=== PATIENT | male | born 1955 | race Caucasian/White ===

== ENCOUNTER 2022-04-19 06:48 | Outpatient (CLI) | payer OTHER, SELFPAY | END 2022-04-19 06:49 | disposition home or self-care (01) | LOC: INJ CL 06:50 | PROVIDERS: PCP Physician Assistant; Visit Provider Family Medicine | DX: M54.16 Radiculopathy, lumbar region (principal); M51.36 Other intervertebral disc degeneration, lumbar region | CPT/HCPCS: 62323; 64483; J1100; Q9966 ==

== ENCOUNTER 2022-07-20 08:00 | Outpatient (RCR) | payer MEDICARE, OTHER, BC, SELFPAY | END 2022-08-24 13:27 | disposition home or self-care (01) | PROVIDERS: PCP Physician Assistant; Visit Provider Physician Assistant | DX: I89.0 Lymphedema, not elsewhere classified (principal); Z51.89 Encounter for other specified aftercare | CPT/HCPCS: 97140 ==

== ENCOUNTER 2022-09-20 08:57 | Outpatient (CLI) | payer MEDICARE, BC, SELFPAY | END 2022-09-20 08:58 | disposition home or self-care (01) | PROVIDERS: PCP Physician Assistant; Visit Provider Family Medicine | DX: M17.11 Unilateral primary osteoarthritis, right knee (principal); M25.561 Pain in right knee | CPT/HCPCS: 64454 ==

== ENCOUNTER 2022-09-27 13:15 | Outpatient (CLI) | payer MEDICARE, BC, SELFPAY | END 2022-09-27 13:16 | disposition home or self-care (01) | LOC: INJ CL 13:15 | PROVIDERS: PCP Physician Assistant; Visit Provider Family Medicine | DX: M17.11 Unilateral primary osteoarthritis, right knee (principal); M25.561 Pain in right knee; G89.29 Other chronic pain | CPT/HCPCS: 64624; J2250; J3010 ==

== ENCOUNTER 2022-11-01 12:24 | Outpatient (CLI) | payer MEDICARE, BC, SELFPAY | END 2022-11-01 12:25 | disposition home or self-care (01) | LOC: INJ CL 12:25 | PROVIDERS: PCP Physician Assistant; Visit Provider Family Medicine | DX: M54.16 Radiculopathy, lumbar region (principal); M51.36 Other intervertebral disc degeneration, lumbar region | CPT/HCPCS: 64483; J1100; Q9966 ==

== ENCOUNTER 2024-02-12 16:14 | Emergency (ER) | payer MEDICARE, BC, SELFPAY ==
[2024-02-12 16:18] VITALS: BP 115/59; PULSE 86; RESP 20; TEMP 36.7; O2SAT 100; BMI 40.7
--- NOTE | 2024-02-12 17:16 | ED.GENADULT ---
HPI - General Adult General Date Seen: 02/12/24 Chief complaint: Urogenital Problems, Male Stated complaint: blood in catheter Time Seen by Provider: 02/12/24 17:16 History of Present Illness HPI narrative: Cystic 8-year-old male with a history of previous right knee total arthroplasty in 2019 and right knee infection in 2020, currently with right knee infection and on PICC line antibiotics. Also a known brain aneurysm, apparentlyshedle for clipping. Also history of hypertension, chronic lymphedema, normocytic anemia, GERD, hyperlipidemia, sleep apnea, Dm 2, Elevated BMI, and history of prostate cancer. he currently has an indwelling Crandall catheter. according to [facility] discharge summary: He was hospitalized in the [facility] system from the 01/22/2029 for a right knee MS as a joint infection. He underwent revision of his total knee arthroplasty on 01/16..He apparently follows with Dr. regalado from Orthopedics (at [facility]? ) . He has on Ancef through his PICC line apparently per recommendations of Infectious Disease. According to discharge summary has a chronic normocytic anemia with hemoglobin 10.5. He apparently had acute kidney injury in the hospital. Per record baseline creatinine is 1.0. Creatinine bumped to 4.49. Renal ultrasound showed bilateral hydronephrosis. Crandall catheter was placed to resolved post renal obstruction. Per record he had a very difficult Crandall placement. He required urology consultation with Dr. Woods ( [place] [facility]) to have catheter placed over a wire. Record indicates that we should not remove his Crandall catheter and that he will have to follow-up with urology for trial of voiding in about 2-5 weeks. according to Therapy discharge summary he had a BMP on 01/22 that showed a BUN of 23 and a creatinine of 1.1. History from the patient and his : he has been at home with his for the past few weeks. He has been doing pretty well from a knee standpoint. No new redness, swelling, or pain. He is still doing 2 g of IV Ancef 3 times daily. he still has his Crandall catheter in place. It has been doing well. Not any unusual pain or any problems with it. This morning when he woke up and emptied his overnight bag his urine was clear and yellow. Later this morning and into this afternoon his urine changed from being yellow to frankly bloody. He has not noticed any clots. The catheter has been draining fine and he has had drainage a couple of times today. The patient says he is probably not drinking enough water but his says he is doing good with water intake. He also notes that last night he had a episode of left testicular pain but no other abdominal pain or flank pain. He is not have any left testicular pain today. He has been mildly nauseous for the past couple of days typically when he gets IV antibiotics, but otherwise no vomiting. But normal bowel movements. No fever chills. No abdominal pain. Does not have any rash on his genitals. No swelling or discoloration of his testicle. He does not know of any urethral trauma or any pulling on his Crandall catheter. They are concerned because he has so much visible blood in his catheter. They have not seen any clots. The catheter in its tubing seem to be draining without obstruction He had his are frustrated because they know they were due to have a follow-up in clinic with urology in 2-4 weeks after discharge. However they called [place] [facility] and cannot get an appointment until March 03 Related Data Home Medications ?Medication ?Instructions ?Recorded ?Confirmed alendronate 70 mg tablet 70 mg PO 02/12/24 atorvastatin 10 mg tablet 10 mg PO DAILY 02/12/24 02/12/24 calcitonin (salmon) 200 02/12/24 unit/actuation nasal spray cefazolin 10 gram solution for 02/12/24 injection celecoxib 200 mg capsule 200 mg PO BID PRN pain 02/12/24 02/12/24 clopidogrel 75 mg tablet 75 mg PO DAILY 02/12/24 02/12/24 duloxetine 60 mg capsule,delayed 120 mg PO DAILY 02/12/24 02/12/24 release famotidine 10 mg tablet (Acid 10 mg PO BID PRN indigestion 02/12/24 02/12/24 Controller) ferrous sulfate 325 mg (65 mg 325 mg PO DAILY 02/12/24 02/12/24 iron) tablet (FeroSul) hydroxyzine HCl 25 mg tablet mg PO 02/12/24 lisinopril 20 mg tablet 20 mg PO DAILY 02/12/24 02/12/24 mirtazapine 30 mg tablet 30 mg PO QPM 02/12/24 02/12/24 oxycodone 10 mg tablet mg PO 02/12/24 oxycodone 5 mg tablet 5 - 10 mg PO Q4H PRN pain 02/12/24 02/12/24 pregabalin 75 mg capsule 75 mg PO BID 02/12/24 02/12/24 tamsulosin 0.4 mg capsule 0.8 mg PO DAILY 02/12/24 02/12/24 Allergies Allergy/AdvReac Type Severity Reaction Status Date / Time metformin Allergy Unknown Verified 02/12/24 16:24 Exam Narrative: Exam Narrative: Constitutional: Appears well-developed and well-nourished. Alert. Conversant. Non toxic. HENT: Head: Atraumatic. Nose: Nose normal. Mouth/Throat: Oral mucosa is clear and moist. no trismus. Pharynx normal. Tonsils symmetric. No tonsillar enlargement, erythema, or exudate. Eyes: Conjunctivae normal. EOM normal. Pupils equal, round, and reactive to light. No scleral icterus. Neck: Normal range of motion. Neck supple. No tracheal deviation present. Cardiovascular: Normal rate, regular rhythm. No gallop. No friction rub. No murmur heard. Symmetric radial artery pulses . PICC line in right upper extremity. Site looks good. Pulmonary/Chest: Effort normal. No stridor. No respiratory distress. No wheezes. No rales. No rhonchi . No tenderness. Abdominal: Soft. Bowel sounds normal. No distension. No mass. No tenderness. No rebound. No guarding. No CVA tenderness : I do have to retract his abdominal pannus to evaluate his system.Normal circumcised penis. Catheter in place. Urethra looks normal. I do not see any blood coming from the urethral meatus around the catheter. Both testicles are normal size and lie. Intact cremasteric reflexes. No redness. No bruising. No swelling. No tenderness. He does have a subtle erythematous rash in the groin creases at the top of his leg, probably due to [place]ovana or moisture. Musculoskeletal: RUE: Normal range of motion. No tenderness. No deformity LUE: Normal range of motion. No tenderness. No deformity RLE: Normal range of motion. No edema. No tenderness. No deformity LLE: Normal range of motion. No edema. No tenderness. No deformity Neurological: Alert and oriented to person, place, and time. Normal strength. CN II-VII intact. No sensory deficit. GCS eye subscore is 4. GCS verbal subscore is 5. GCS motor subscore is 6. Normal coordination Skin: Skin is warm and dry. No rash noted. No pallor. Normal capillary refill. Psychiatric: Normal mood. Normal affect. Const: Vital Signs, click to edit/add: Vital Signs - 24 hr 02/12/24 16:18 Temperature 98.0 F Pulse Rate [Right Pulse Oximeter] 86 Respiratory Rate 20 Blood Pressure [Le ft Upper Arm] 115/59 L Pulse Oximetry 100 Oxygen Delivery Me thod Room Air Course Vital Signs Vital signs: Initial Vital Signs Temperature 98.0 F 02/12/24 16:18 Temperature Source Temporal Artery Scan 02/12/24 16:18 Pulse Rate 86 02/12/24 16:18 Respiratory Rate 20 02/12/24 16:18 Blood Pressure 115/59 L 02/12/24 16:18 Blood Pressure Mean 77 02/12/24 16:18 Pulse Oximetry 100 02/12/24 16:18 Oxygen Delivery Method Room Air 02/12/24 16:18 Vital Signs Temperature 98.0 F 02/12/24 16:18 Pulse Rate 86 02/12/24 16:18 Respiratory Rate 20 02/12/24 16:18 Blood Pressure 115/59 L 02/12/24 16:18 Pulse Oximetry 100 02/12/24 16:18 Oxygen Delivery Method Room Air 02/12/24 16:18 Temperature 98.0 F 02/12/24 16:18 Pulse Rate 86 02/12/24 16:18 Respiratory Rate 20 02/12/24 16:18 Blood Pressure 115/59 L 02/12/24 16:18 Pulse Oximetry 100 02/12/24 16:18 Oxygen Delivery Method Room Air 02/12/24 16:18 Medical Decision Making MDM Narrative Medical decision making narrative: Pleasant 68-year-old male with a very complex recent past medical history. Presents to the ER today because he developed gross hematuria (without clots) this afternoon. He has a Crandall catheter that it has been in place now almost 4 weeks. Had been placed while in the hospital at [facility] due to acute renal failure associated with post renal obstruction. Crandall catheter placement was complicated by urethral trauma and required urology with cystoscopy and passage of the Crandall over a wire. Notes indicate that it should not be removed except for by Urology. Differential for the hematuria is broad. No evidence for any new kidney stones on CT abdomen pelvis. Urinalysis does show positive nitrite (along with the already recognized hematuria) but really not much pyuria. CT scan does suggest possible bladder wall inflammation which could indicate cystitis. It is possible that cystitis could be contributing to the hematuria. Patient does not recall any Crandall catheter tugging or known trauma to the catheter that would have triggered the bleeding today. He has a history of anemia. With gross hematuria today concern is for possible blood loss. However he is hemodynamically stable and essentially asymptomatic. Hemoglobin today is anemic but is actually increased by 1/10 of a point compared to his labs from clinic on 02/06. Will open was 7.8. He is on aspirin but no other anticoagulants. His Crandall catheter was originally placed because of acute renal obstruction causing post renal renal failure. Creatinine today is 1.0. No signs of recurrent renal failure. We were able to irrigate his existing Crandall catheter with sterile saline and were able to change the hematuria from dark reddish friedman-juice colored urine to pinkish pink lemonade colored urine. There are still no clots. The catheter is clearly not obstructed and flowing well. Since we were able to clear the majority of the bloody output we do not think the patient needs to be admitted for bladder irrigation. Discussed with Urology, Dr. Rolon. He agrees with my plan to start the patient on antibiotics. Will select Cipro since he is already on Ancef and has risk for resistant pathogens. While way at this point the patient does not require immediate hospitalization. Additionally, he says he would refuse hospitalization if recommended. The patient says he has a urology follow-up appointment scheduled for about 2 or 3 weeks from now on March 03 and that this was the earliest available appointment. The on-call urologist is confident that they will be able to get the patient in clinic for follow-up this week. patient or his will call 1st thing in the morning to arrange a ER follow-up appointment. Discussed Crandall catheter care and what to do if he has worsening blood coming out of the catheter or any clots or obstruction. Discussed risk of worsening infection and precautions for return to the ER and the need for follow-up. Patient and his verbalized their understanding. Incidentally, sacral insufficiency fractures are noted on the CT. These were previously known to the patient and his . Lab Data Labs: Lab Results 02/12/24 02/12/24 Range/Units 17:10 18:21 WBC 4.74 (4.50-11.00) K/uL RBC 2.80 L (4.30-5.90) m/uL Hgb 7.9 L* (13.5-17.5) gm/dL Hct 25.9 L (37.0-53.0) % MCV 93 (80-100) fL MCH 28 (26-34) pg MCHC 31 L (32-36) gm/dL RDW Coeff of Renee 18.7 H (11.5-15.5) % Plt Count 153 (140-440) K/uL Neut % (Auto) 65.3 (42.0-72.0) % Lymph % (Auto) 15.2 L (20-44) % Traverse % (Auto) 13.7 H (0.0-11.0) % Eos % (Auto) 4.6 (0.0-7.0) % Baso % (Auto) 0.8 (0.0-3.0) % Neut # (Auto) 3.09 (1.7-7.0) K/uL Lymph # (Auto) 0.70 L (0.90-2.90) K/uL Traverse # (Auto) 0.60 (0.00-0.90) K/UL Eos # (Auto) 0.22 (0.00-0.50) K/uL Baso # (Auto) 0.04 (0.00-0.30) K/uL Abs Immat Gran (auto) 0.02 (0.00-0.30) K/uL Imm/Tot Granulo (auto) 0.4 % Sodium 139 (135-149) mmol/L Potassium 4.5 (3.6-5.1) mmol/L Chloride 110 (96-114) mmol/L Carbon Dioxide 24 (20-32) mmol/L Anion Gap 5 L (7-15) mEq/L BUN 23 (7-30) mg/dL Creatinine 0.7 (0.5-1.5) mg/dL Estimated Creat Clear 79.76 Estimated GFR 102 ml/min Glucose 112 (60-115) mg/dL Calcium 8.4 (8.4-10.6) mg/dL Urine Color Red A (Yellow) Urine Appearance Slightly Cloudy A (Clear) Urine pH 5.5 (5.0-8.5) Ur Specific [place] 1.020 (1.000-1.030) Urine Protein 3+ A (Negative) Urine Glucose (UA) Negative (Negative) Urine Ketones Trace A (Negative) Urine Blood 3+ A (Negative) Urine Nitrite Positive A (Negative) Urine Bilirubin 2+ A (Negative) Urine Urobilinogen 1.0 (0.2-1.0) Ur Leukocyte Esterase Negative (Negative) Urine RBC >100 A (0-2) Urine WBC 2-5 (0-5) Ur Squamous Epith Cells Few (None-Few) Urine Bacteria None (None) Imaging Data CT scan - abdomen: Attestation: I have reviewed the pertinent imaging results. Radiologist's impression: IMPRESSION: 1. No acute findings abdomen or pelvis. Nodular contour to liver which can be seen with cirrhosis splenomegaly. 2. No renal calculi or hydronephrosis. 3. Decompressed urinary bladder mild pericystic inflammatory change correlate for cystitis 4. Right-sided sacral insufficiency fracture probable left-sided sacral insufficiency fracture as well. Discharge Plan Discharge Clinical Impression: Hematuria, Anemia, Acute UTI Patient Disposition: Home, Self-Care Condition: Stable Instructions: Urinary Tract Infection in Men (ED), Hematuria (ED) Additional Instructions: Please call the [place] [facility] clinic tomorrow morning. Asked their radiology scheduler to move up her follow-up appointment. You can tell the radiology scheduler that you are overdue for your hospital follow-up visit and you also have a UTI. They will be able to move up your appointment to some day this week. If you have worsening problems especially more blood coming out of your catheter or any clots or if your catheter becomes blocked, please come back to the ER right away. Please start on the new antibiotic-ciprofloxacin, and continue on your current PICC line antibiotic. If you have any worsening symptoms of infection, come back to the ER or see your doctor right away. Prescriptions: No Action celecoxib 200 mg capsule 200 mg PO BID PRN (Reason: pain) famotidine [Acid Controller] 10 mg tablet 10 mg PO BID PRN (Reason: indigestion) atorvastatin 10 mg tablet 10 mg PO DAILY lisinopril 20 mg tablet 20 mg PO DAILY alendronate 70 mg tablet 70 mg PO clopidogrel 75 mg tablet 75 mg PO DAILY cefazolin 10 gram recon soln Patient Comments: [NO ORIGINAL SIG] tamsulosin 0.4 mg capsule 0.8 mg PO DAILY calcitonin (salmon) 200 unit/actuation spray,non-aerosol Patient Comments: [NO ORIGINAL SIG] mirtazapine 30 mg tablet 30 mg PO QPM ferrous sulfate [FeroSul] 325 mg (65 mg iron) tablet 325 mg PO DAILY hydroxyzine HCl 25 mg tablet PO oxycodone 5 mg tablet 5 - 10 mg PO Q4H PRN (Reason: pain) duloxetine 60 mg capsule,delayed release(DR/EC) 120 mg PO DAILY pregabalin 75 mg capsule 75 mg PO BID oxycodone 10 mg tablet PO Follow Up/Referrals: Mary Ruggiero PA-C [Primary Care Provider] - Stand Alone [facility]: [facility] Instructions
[2024-02-12 17:21] LABS: Appearance Urine Slightly Cloudy (Clear); Bilirubin Urine 2+ (Negative); Blood Urine 3+ (Negative); Color Urine Red (Yellow); Glucose Urine Negative (Negative); Ketones Urine Trace (Negative); Leukocyte Esterase Urine Negative (Negative); Nitrite Urine Positive (Negative); Protein Urine 3+ (Negative); pH Urine 5.5 (5.0-8.5)
[2024-02-12 17:31] LABS: RBC Urine >100 (0-2); Squamous Epithelial Cell Urine Few (None-Few)
--- NOTE | 2024-02-12 17:53 | CRLHL7_ITS ---
For Patients: As a result of the Century Cures Act, medical imaging exams and procedure reports are released immediately into your electronic medical record. You may view this report before your referring provider. If you have questions, please contact your health care provider. INDICATION: . Hematuria TECHNIQUE: CT abdomen and pelvis without contrast. COMPARISON: None. FINDINGS: Lower chest: Unremarkable. Liver: Nodular contour to liver this can be seen with cirrhosis. Gallbladder and bile ducts: No stones or inflammation. No biliary dilatation. Pancreas: Unremarkable. No mass or inflammation. Spleen: Splenomegaly measuring 18.5 cm Adrenal glands: Normal in size. No nodules. Kidneys: No renal calculi no hydronephrosis. Low-attenuation lesion left kidney incompletely assessed but may represent a cyst GI tract: Diverticulosis normal appendix no obstruction Vasculature: Abdominal aorta is normal in caliber. Lymph nodes: No lymphadenopathy. Peritoneum/Abdominal Wall: Small fat containing umbilical hernia. Postsurgical changes of ventral hernia repair Pelvis: Crandall catheter in urinary bladder which is decompressed there is slight persistent inflammatory change. Bones: Patchy sclerosis involving both sacral ala there is a sacral insufficiency fracture on the right possible subtle sacral insufficiency fracture on the left there is diffuse bone demineralization. Sacral stimulator device IMPRESSION: 1. No acute findings abdomen or pelvis. Nodular contour to liver which can be seen with cirrhosis splenomegaly. 2. No renal calculi or hydronephrosis. 3. Decompressed urinary bladder mild pericystic inflammatory change correlate for cystitis 4. Right-sided sacral insufficiency fracture probable left-sided sacral insufficiency fracture as well. Please note that all CT scans at this facility use dose modulation, iterative reconstruction, and/or weight-based dosing when appropriate to reduce radiation dose to as low as reasonably achievable. Dictated by Aimee Berman MD @ 02/12/2024 7:09:12 PM (Electronically Signed)
--- OUTSIDE RECORDS SUMMARY | 2024-02-12 17:59 | XMS_ITS | Clinical Summary ---
Author Organization [facility] Address [address] [place] [address] Phone Care Team Providers Care Integrated Logistics Support Manager Name Role Phone Unavailable Primary Care Provider Unavailabl e Social History Tobacco Use Types Packs/Day Years Used Date Smoking Tobacco: Never Assessed Sex and Gender Information Value Date Recorded Sex Assigned at Not on file Gender Identity Not on file Sexual Orientation Not on file Plan of Treatment Upcoming Encounters Date Type Department Care Team (Late st Contact Info) Description 02/20/2024 9:20 AM MDT Office Visit [facility] [address] [place], [place] [id number] Judy Banegas PA [address] [place] [address] Health Maintenance Due Date Last Done Comments Pneumococcal PPSV23/PCV13 65 + Years / Low and Medium Risk (1 of 4 - PCV) 2022 COVID-19 Vaccine ( season) 2023 Influenza Vaccine (Season Ended) 2024
--- OUTSIDE RECORDS SUMMARY | 2024-02-12 17:59 | XMS_ITS | Continuity of Care Document ---
Author Organization [facility] Address [address] [facility] [address] [place] [address] Phone Care Team Providers Care Purchasing Administrative Assistant Name Role Phone Sherie Das DNP Unavailable [...] - Active Procedures Procedure Date OFFICE/OUTPATIENT VISIT, [facility] Advance Directives Directive Yes / No Effective Date File Name No Information Encounters Encounter Description Practice Location Reason(s) For Visit Diagnoses Date Provider Providers Copied on Encounter OFFICE/OUTPA TIENT VISIT, [facility], [address], [place], [id number] , [place] tel:[phone] [facility] [place] low back pain (chief complaint) Chronic pain syndromeLow back pain, unspecifiedObesity 3 Pippa Rehman. [address] [facility] [address] [address], [place], [place], [id number] , [place]. tel:[phone] Referring Provider: Mary Ruggiero [address], [address]. tel:[phone] Family History Family Member Type Diagnosis Age At Onset No Information Payers Payer name Insurance type Covered green party ID Authoriza tiestrella(s) [employer] [place] Complete [place] [id number] Social History Type Description Quantity Date Captured [...] 160.118 kg (353.00 lbs) 46.5 7 kg/m balta (2) Chief Complaint And Reason For Visit [...] Of Treatment Date Type Action Status Goal FIT. Due on due Goal Unhealthy drug use screening . Due on due Goal Height. Due on d ue Goal Hepatitis C screening. Due o n due Goal PHQ-9. Due on du e Goal Zoster vaccine (1st). Due on due Goal Lipid panel. Due on 023 due Goal Tobacco Use. Due on 023 due Goal Review Allergy List. Due on due Goal Medication Reconciliation. D ue on due Goal FIT-DNA. Due on due Goal Update Social History. Due o n due Goal Weight. Due on d ue Goal CT-Colonography. 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 Reports that Dr. Chaz Olivas recommended that he pursue a kyphoplasty.For pain management, patient has undergone a LESI through [facility] about a month ago (est. October 2022), and has tried Oxycodone.Osvaldo is interested in pain management through [facility]. Interested in Vertebralplasty/Kyphoplasty No other concerns today. low back pain Severity level i s 10. Duration: chronic. It occurs persistently. Location of pain is lower back. The client describes the pain as sharp. Symptoms are aggravated by ascending stairs, bending, changing positions, descending stairs, lifting, running, twisting, walking, housework and movement. Symptoms are relieved by heat, ice, lying down and sitting. Functional Status Date Functional Assessmen t No Information Instructions Date Instruction Additional Infor mation No Information Assessments Type Assessment Date assessment Chronic pain syndrome 3 impression This is my first nafisa luation of the patient. Some records available from [facility]. [place] criminal backgrounds check completed with no [...] imaging within the last two months at [facility].Reports that Dr. Chaz Olivas recommended that he pursue a kyphoplasty.For pain management, patient has undergone a LESI through [facility] about a month ago (est. October 2022), and has tried Oxycodone.Osvaldo is interested in pain management through [facility] assessment Low back pain, unspecified Nov- impression [...] Mental Status Date Cognitive Assessment Orientation - [place] ed to time, place, person, situation. Patient Care Teams Name Effective Dates (start - stop) Status Members No Information
--- OUTSIDE RECORDS SUMMARY | 2024-02-12 17:59 | XMS_ITS | Continuity of Care Document ---
Author Organization [facility] Address [address] [address] [place] [address] Phone Care Team Providers Care Senior Estimator Name Role Phone Feliberto Farooq MD Unavailable Unavailabl e Allergies, Adverse Reactions, Alerts Substance Reaction Status Criticality No Known Allergies Active No Inform ation Medications Medication Instructions Dosage Effective Dates (start - stop) Status Comments hydroxyzine HCl 25 mg tablet take 1 tablet by oral route 2 times every day as needed 25 MG - Active Flomax 0.4 mg capsule take 1 capsule by oral route 2 times every day 1/2 hour following the same meal each day 0.4 MG - Active AMBIEN CR (unknown strength) take 1 tablet by oral route every day at bedtime Not Available - Active Effexor XR 75 mg capsule,extended release take 1 capsule by oral route every day with food 75 MG - Active pentoxifylline ER 400 mg tablet,extended release take 1 tablet by oral route 2 times every day with meals 400 MG - Active LISINOPRIL (unknown strength) take 1 tablet by oral route every day Not Available - Active Procedures Procedure Date New Level 4 Advance Directives Directive Yes / No Effective Date File Name No Information Encounters Encounter Description Practice Location Reason(s) For Visit Diagnoses Date Provider Providers Copied on Encounter [facility], [address] [address], [place], [place], [id number], [place] tel:[phone] [facility] No Information 3 Maxime Dao. [address] [facility], [facility] [address], [place], [place], [id number] , [place]. tel:[phone] New Level 4 [facility], [address] [address], [place], [place], [id number], [place] tel:[phone] [facility] GI Symptoms or Concerns (chief complaint) Chronic diarrheaBleeding per rectumIron deficiency anemia, unspecified iron deficiency anemia typeThrombocyte disorderAlcohol use 2 Chen Mazariegos. [address] [facility] [address], [place], [place], [id number] , [place]. [phone] Referring Provider: Simran Warner MD, [address] [place] [address], [address]. tel:[phone] [facility] [place], [address] [address], [place], [place], [id number], [place] tel:[phone] [facility] No Information 2 Maxime Dao. [address] [facility], [facility] [address], [place], [place], [id number] , [place]. [phone] Family History Family Member Type Diagnosis Age At Onset Sister Problem (finding) Leukemia Sister Problem (finding) Cancer, breast Brother Problem (finding) Cancer, prostate Brother Problem (finding) Asthma Father Problem (finding) Alcoholism Sister Problem (finding) Cancer Brother Problem (finding) Alcoholism Immunizations Vaccine Date Status Comments SARS-COV-2 (COVID-19) vaccin e, mRNA, spike protein, LNP, preservative free, 30 mcg/0.3mL dose administered Note: [facility] bi-direct ional interface ; Source: Other Registry tetanus toxoid, reduced diphtheria toxoid, and acellular pertussis vaccine, adsorbed administered Note: [facility] b i-directional interface ; Source: Other Registry Payers Payer name Insurance type Covered republican ID Authoriza tion(s) No Information Social History Type Description Quantity Date Captured Comments Sex Male Smoking Status No Information Chief Complaint And Reason For Visit No Information Reason For Referral Reason For Referral No Information Plan Of Treatment Date Type Action Status Referral Ordered: Hep C Ab Appointment date/timeframe: 08/31/2022 ordered Referral Ordered: C-Reactive Protein Appointment date/timeframe: 08/31/2022 ordered Referral Ordered: EGD Appointment date/timeframe: 12/19/2022 ordered Referral Ordered: Pancreatic Elastase, Fecal Appointment date/timeframe: 09/16/2022 ordered Referral Ordered: Stool Test Panel, Comprehensive Appointment date/timeframe: 08/31/2022 ordered Referral Ordered: Hep B surface Ag Appointment date/timeframe: 08/31/2022 ordered Referral Ordered: Hep B Surface Ab Appointment date/timeframe: 08/31/2022 ordered Referral Ordered: Flexible Sigmoidoscopy Appointment date/timeframe: 12/19/2022 ordered Referral Ordered: C Difficile Toxin Gene FRANDY Appointment date/timeframe: 08/31/2022 ordered Referral Ordered: Calprotectin, Fecal Appointment date/timeframe: 09/16/2022 ordered Referral Ordered: FibroScan Appointment date/timeframe: 10/12/2022 ordered Referral Ordered: Giardia lamblia Ag, EIA Appointment date/timeframe: 08/31/2022 ordered History Of Present Illness Encounter Date Complaint History Of Prese nt Illness GI Symptoms or Concerns Mr. Brett perez is being seen in the office today at the request of Dr. Warner for evaluation of anemia, fecal urgency. This is a virtual visit.Patient reports fecal urgency and loss of fecal continence for about 6 months. He reports having variable frequency of his stool passage 4 -10 bowel movements daily, needing about 6-8 loperamide tablets daily. Occasionally sees blood in his stool, bright red blood as well as some clots. He has history of radiation for treatment of prostate cancer. He is not getting any radiation therapy at the moment.Most recent colonoscopy revealed nonspecific inflammation in rectum and sigmoid, but no mention of radiation related changes. Some blood clots were seen in the rectum and parts of rectal mucosa was cauterized.Patient denies any prior upper endoscopy. He denies any melena, dysphagia, endorses occasional reflux and regurgitation. He reports history of at least 1-3 hard liquor drinks for over 20 years, and has low platelet count for unexplained reason. He denies any known history of chronic liver disease, or any family history of cirrhosis. Functional Status Date Functional Assessmen t No Information Instructions Date Instruction Additional Infor mation No Information Assessments Type Assessment Date No Information Patient Care Teams Name Effective Dates (start - stop) Status Members No Information
--- OUTSIDE RECORDS SUMMARY | 2024-02-12 17:59 | XMS_ITS | Clinical Summary ---
Author Organization [facility] Address [address] [place] [address] Care Team Providers Care Wrapper And Preserver Name Role Phone Elsewhere, Pcp Primary Care Provider Unavailabl e Source Comments Patient records contain information from all sites at [facility]. For routine questions regarding patient records, call [phone] during business hours, M-F 8:00 AM - 5:00 PM Central Time. Record requests for emergency care only can be directed to [phone] at any time.[facility] Allergies Active Allergy Reactions Criticality Noted Date Comments Metformin GI intolerance 07/30/2021 Medications Medication Sig Dispensed Refills Start Date End Date Status atorvastatin (LIPITOR) 10 mg tablet Take 1 tablet by mouth at bedtime. 11/16/2015 Active lisinopril-hydroCHL OROthiazide (for_PRINZIDE,ZESTO RETIC) 20-12.5 mg per tablet 12/13/2017 Active MULTIVITAMIN ORAL Take 1 tablet by mouth. Active miscellaneous medical supply [facility] CPAP machine for home use at pressure: 8 CM H20 , Heated humidifier x 1, Humidifier chamber x 1, Full face mask with cushion x 1, Heated tubing x 1, Headgear x 1, Filters: Disposable x 1pk & Reusable x 1pk, Length of Need: 99 months, Frequency of use: Daily 01/13/2017 Active tamsulosin (FLOMAX) 0.4 mg 24 hr capsule Take 2 capsules (0.8 mg total) by mouth daily. 60 capsule 3 09/20/2021 Active clobetasoL (TEMOVATE) 0.05 % ointment APPLY TOPICALLY TO AFFECTED AREA(S) 2 TIMES DAILY. 04/25/2022 Active vitamin E 450 mg (1,000 Unit) capsule Take 1 capsule (450 mg total) by mouth daily. 30 capsule 11 05/16/2022 Active alendronate (FOSAMAX) 70 mg tablet Take by mouth over 168 hr. 10/14/2022 Active calcitonin, salmon, (MIACALCIN) 200 unit/actuation nasal spray Administer into nostril(s). 01/12/2023 Active cholecalciferol (VITAMIN D3) 25 mcg (1,000 Unit) capsule 2022 Active ciprofloxacin (CIPRO) 500 mg tablet 01/12/2023 Active HYDROcodone-acetami nophen (NORCO) 10-325 mg per tablet Take by mouth every 3 (three) hours. Active hydrOXYzine (ATARAX) 25 mg tablet Take by mouth daily. Active mirtazapine (REMERON) 15 mg tablet Take by mouth daily. 10/14/2022 Active potassium chloride (K-TAB) 20 mEq CR tablet Take 20 mEq by mouth daily. 09/15/2022 Active pregabalin (LYRICA) 75 mg capsule TAKE 1 TO 2 CAPSULE BY MOUTH TWICE DAILY 01/03/2023 Active DULoxetine (CYMBALTA) [address] capsule Take 60 mg by mouth daily. 08/15/2023 Active DULoxetine (CYMBALTA) [address] capsule Take 30 mg by mouth daily. 07/15/2023 Active celecoxib (CeleBREX) 200 mg capsule Take 200 mg by mouth daily. Active dapsone 25 mg tablet Take 25 mg by mouth once a week. Active ibuprofen (MOTRIN) 800 mg tablet Take 800 mg by mouth as needed. Active furosemide (LASIX) 40 mg tablet Take 40 mg by mouth as needed. 07/03/2023 Active oxyCODONE (ROXICODONE) 10 mg IR tablet Take 1 tablet by mouth as needed. 07/30/2023 Active albuterol 90 mcg/actuation inhaler Inhale 1-2 puffs every 4 (four) hours as needed. 10/02/2023 Active mirtazapine (REMERON) 30 mg tablet Take 30 mg by mouth at bedtime. 45 mg 08/27/2023 Active tiZANidine (ZANAFLEX) 4 mg tablet Take 4 mg by mouth as needed for muscle spasms. 09/26/2023 Active predniSONE (DELTASONE) 20 mg tablet as directed. 10/02/2023 Active pregabalin (LYRICA) 150 mg capsule Take 150 mg by mouth 2 (two) times a day. 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 07/19/2018 Chondrocostal Junction Syndrome Tietze 8 Noninfective Gastroenteritis And Colitis Unspeci fied 04/26/2018 Separation Of Muscle Nontraumatic Other Site 05/2018 Diabetes Mellitus Type 2 Without Complication Primary Osteoarthritis Knee Bilateral 02/06/2018 Umbilical Hernia Without Obstruction Or Gangrene 07/07/2017 Other And Unspecified Ventra l Hernia With Obstruction Without Gangrene 07/07/2017 Venous Insufficiency Chronic Peripheral 02/22/20 17 Apnea Sleep Obstructive 01/05/2017 Cancer Prostate Family History 11/16/2015 BenignProstatic Hyperplasia Localized 11/16/2015 Hyperlipidemia 07/01/2015 Other Specified Anxiety Disorders 06/23/2015 Hypertension Essential Primary 06/23/2015 Morbid Severe Obesity Due To Excess Calories 02/2015 Depression Major One Episode Mild 12/29/2011 Overview: Mild major depression, single episode Resolved Problems Problem Noted Date Diagnosed Date Resolved Date Pain Chest Precordial 07/13/20182021 PreDiabetes 09/26/2016 06/27/2022 Pain Chest Atypical 04/07/2014 06/27/20 22 Encounters Date Type Department Care Team Description 02/06/2024 Clinical Communication Department of Urology in [place], [place] [address] [place] [phone] Shara Aldrich APRN, C.N.P., D.N.P. Appt Request (Catheter Removal) 01/29/2024 7:00 AM CDT Virtual Visit Department of Urology in [place], [place] [address] [place] [phone] Shara Aldrich APRN, C.NNoé, D.N.P. Defect Ureteral Filling (Primary Dx) 12/27/2023 2:30 PM CDT Virtual Visit Department of Radiology, [facility], in [place], [place] [address] [place] [phone] Janice Salmon APRN, C.NSarabjit., M.S.N. Primary Malignant Neoplasm Of Prostate (HCC) (Primary Dx) 12/27/2023 Clinical Communication Department of Urology in [place], [place] [address] [place] [address] Shara Aldrich APRN, C.NSarabjit., D.N.P. 12/27/2023 Clinical Communication Department of Urology in [place], [place] [address] [place] [phone] Otoniel Sandoval M.D. 12/26/2023 12:42 PM CDT - 12/26/2023 11:59 PM CDT Hospital Encounter Department of Radiology, [facility] in [place], [place] [address] [place] [address] Janice Salmon APRN, C.N.P., M.S.N. Primary Malignant Neoplasm Of Prostate (HCC) Discharge Disposition: Home or Self Care 12/26/2023 12:27 PM CDT - 12/26/2023 12:41 PM CDT Hospital Encounter Department of Laboratory Medicine and Pathology, [facility] in [place], [place] [address] [place] [phone] Janice Salmon APRN, C.N.P., M.S.N. Primary Malignant Neoplasm Of Prostate (HCC) Discharge Disposition: Home or Self Care from Last 3 Months Immunizations Name Administration Dates Next Due DTaP (Infanrix, [employer]edia) 12/23/2002 SARS-COV-2 (COVID-19) - PFIZ ER (Discontinued)(12 years or older) 12/09/2020 Tdap 05/13/2013 Family History Medical History Relation Name Comments Prostate cancer Brother Prostatectom y 2016, Radiation therapy in 2019 Heart attack Father Osteoporosis Mother Breast cancer Sister Relation Name Status Comments Brother Father Mother Sister Social History Tobacco Use Types Packs/Day Years Used Date Smoking Tobacco: Former Cigarettes Q uit: 05/19/2006 Passive Smoke Exposure: Never Smokeless Tobacco: Never Tobacco Cessation:Counseling Given: Not Answered Alcohol Use Standard Drinks/Week Comments Not Currently 3 (1 standard drink = 0.6 oz pur e alcohol) hasn't for months [facility] [employer] Answer Date Recorded In the past 12 months has e [employer], oil, or water [employer] threatened to shut off services in your home? No 09/21/2023 Humiliation, Afraid, Rape, and Kick questionnair e Answer Date Recorded Within the last year, have y ou been afraid of your partner or ex-partner? No 07/18/2022 Within the last year, have y ou been humiliated or emotionally abused in other ways by your partner or ex-partner? No Within the last year, have y ou been kicked, hit, slapped, or otherwise physically hurt by your partner or ex-partner? No 07/18/2022 Within the last year, have y ou been raped or forced to have any kind of sexual activity by your partner or ex-partner? No 07/18/2022 Social Connection and Isolat ion Panel [NHANES] Answer Date Recorded In a typical week, how many times do you talk on the phone with family, friends, or neighbors? More than three times a week 07/18/2022 How often do you get togethe r with friends or relatives? Once a week 07/18/2022 How often do you attend chur ch or samaritan services? Never 07/18/2022 Do you belong to any clubs o r organizations such as confucianist groups, unions, fraternal or athletic groups, or school groups? No 07/18/2022 How often do you attend meet ings of the clubs or organizations you belong to? Never 07/18/2022 Are you , , di vorced, , never , or living with a partner? 07/18/2022 AUDIT-C Answer Date Recorded Q1: How often do you have a drink containing alcohol? 4 or more times a week 07/18/2022 Q2: How many drinks containi ng alcohol do you have on a typical day when you are drinking? 1 or 2 2 Q3: How often do you have si x or more drinks on one occasion? Less than monthly 07/18/2022 Overall Financial Resource Strain (CARDIA) Answe r Date Recorded How hard is it for you to pa y for the very basics like food, housing, medical care, and heating? Not very hard 07/18/2022 [facility] - Occupational Stress Questionnaire Answer Date Recorded Do you feel stress - tense, restless, nervous, or anxious, or unable to sleep at night because your mind is troubled all the time - these days? Rather much 07/18/2022 Exercise Vital Sign Answer Date Recorde d On average, how many days pe r week do you engage in moderate to strenuous exercise (like a brisk walk)? 2 days 09/21/2023 On average, how many minutes do you engage in exercise at this level? 20 min 09/21/2023 Hunger Vital Sign Answer Date Recorded Within the past 12 months, y ou worried that your food would run out before you got the money to buy more. Never true 09/21/19 Within the past 12 months, t he food you bought just didn't last and you didn't have money to get more. Never true 09/21/2023 PRAPARE - Transportation Answer Date Re corded In the past 12 months, has l ack of transportation kept you from medical appointments or from getting medications? No 12/2023 In the past 12 months, has l ack of transportation kept you from meetings, work, or from getting things needed for daily living? No 09/21/2023 Nutrition Answer Date Recorded Nutrition: EVOO Fat Source Yes 09/21 On average, how many serving s of fruits and vegetables do you eat per day (serving size is equal to 1 cup or approximately the size of a tennis ball)? 0-2 09/21/2023 Dental Answer Date Recorded Dental: Regular Dentist Yes 09/21/19 Employment Answer Date Recorded Employment status Retired 09/21/2023 Housing Stability Answer Date Recorded What is your living situation today? [facility] 09/21/2023 Education Answer Date Recorded What is the highest level of school you have completed or the highest degree you have received? 12th grade 07/18/2022 Sex and Gender Information Value Date Recorded Sex Assigned at Male 12/18/2017 8:54 AM CDT Gender Identity Male 12/18/2017 8:54 AM CDT Sexual Orientation Straight 12/18/2017 8: 54 AM CDT Last Filed Vital Signs Vital Sign Reading Time Taken Comments Blood Pressure 146/75 02/22/2023 3:00 PM CDT Pulse 70 02/22/2023 3:00 PM CDT Temperature 36.7 ??C (98.1 ??F) 02/22/2023 2:56 PM CD T Respiratory Rate 19 02/22/2023 3:00 PM CDT Oxygen Saturation 96% 02/22/2023 3:00 PM CDT Inhaled Oxygen Concentration - - Weight 152 kg (335 lb 1.6 oz) 01/18/2023 11:12 A M CDT Height 181 cm (5' 11.26) 01/18/2023 11:12 AM CD T Body Mass Index 46.4 01/18/2023 11:12 AM CDT Plan of Treatment Upcoming Encounters Date Type Department Care Team (Late st Contact Info) Description 03/29/2024 12:10 PM CDT Appointment Department of Laboratory Medicine in [place], [place] [address] [place] [phone] Janice Salmon APRN, C.N.P., M.S.N. [address] [place] [phone] Health Maintenance Due Date Last Done Comments CT Colonography 1957 Cologuard 1957 Depression Monitoring (PHQ-9) 1957 Diabetic Office Visit with Foot Exam 1957 Dilated Eye Exam 1957 Hepatitis C Screening 1957 Urine Albumin 1957 Pneumococcal vaccine (65+ years) (1 of 2 - PCV) 1963 Zoster Vaccines (1 of 2) 1976 Hepatitis B Vaccines (1 of 3 - Risk 3-dose series) 2017 COVID-19 Vaccine (2 - Pfizer risk series) 12/30/2020 12/09/2020 Influenza Vaccine (#1) 2023 Hemoglobin A1C 07/14/2023 01/12/2023, 1011/2021, 04/07/2014 Fall Risk Screen (Annual) 09/18/2023 Office Visit for Blood Pressure Check / Re-check 01/19/2024 01/18/2023 Potassium Level 01/28/2025 01/29/2024, 05/0 03/2024, 01/22/2024, Additional history exists Sodium Level 01/28/2025 01/29/2024, 05/0 03/2024, 01/22/2024, Additional history exists Creatinine Level (Kidney Function Test) 01/31/2025 02/01/2024, 01/29/2024, 01/24/2024, Additional history exists Colonoscopy 03/28/2027 03/28/2022, 03/17/2008 Colorectal Cancer Surveillance 03/28/2027 Lipid (Cholesterol) Screening 02/28/2028 02/27/2023, 03/01/2021, 07/06/2020, Additional history exists DTaP,Tdap,and Td Vaccines (4 - Td or Tdap) 10/03/2033 10/03/2023, 05/13/2013, 12/23/2002 Abdominal Aortic Aneurysm (AAA) Screen Completed 01/20/2024, 01/20/2024, 01/16/2024, Additional history exists HPV Vaccines Aged Out No longer eligi ble based on patient's age to complete this topic Medical Devices Implanted Type Area Tow Picker Device Identifier Shelf Expiration Date Model / Serial / Lot Knee Implant Knee Implant Right: Knee Huzco Bladder Stimulator 4101-02/22/2023 Implanted:Qty: 1 on 02/22/2023 by Leatha Arora D.O. at [facility] Sacral Nerve Stimulator N/A: Pelvis [employer] 11/18/2023 4101 / [id number] / Description:Huzco Sacral S timulator Model# 4101 with lead Model# 1201 MRI conditional at 1.5T. Physicist coverage may be needed. Patient must bring remote to MRI appointment. 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 Kristian Ray 12/25/23 [email or web address] Axonics Lead 1201 Implanted:Qty: 1 on 02/22/2023 by Leatha Arora D.O. at [facility] Stimulator Other N/A: Pelvis Axonics [employer] [id number] 07/28/2025 1201 / [id number] / Description:Axonics Sacral S timulator Model# 4101 with lead Model# 1201 MRI conditional at 1.5T. Physicist coverage may be needed. Patient must bring remote to MRI appointment. 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 Kristian Ray 12/25/23 [email or web address] 1201 reference number Explanted Type Area Tow Picker Device Identifier Shelf Expiration Date Model / Serial / Lot Axonics Trial Implanted:Qt y: 1 on 02/09/2023 by Leatha Arora D.O. at [facility] Explanted: (Quantity not on file) Stimulator Other N/A: Sacrum Axonics Modulation [employer] [id number] 08/29/2025 1901 / / [id number] Axonics Trial Implanted:Qt y: 1 on 02/09/2023 by Leatha Arora D.O. at [facility] Explanted: (Quantity not on file) Stimulator Other N/A: Sacrum Axonics Modulation [employer] [id number] 04/17/2025 1701 / / [id number] Procedures Procedure Name Priority Date/Time Associated Diagnosis Comments EXTI CREATININE WITH EGFR, S/P Routine 02/01/2024 8:20 AM CDT EXTI COMPREHENSIVE METABOLIC PANEL, S/P Routine 01/29/2024 2:[address] ABDOMEN PELVIS WITHOUT IV CONTRAST RAD - Routine (most inpatients and all outpatients) 01/20/2024 8:46 AM CDT MR PROSTATE WITHOUT AND WITH IV CONTRAST RAD - Routine (most inpatients and all outpatients) 12/26/2023 2:40 PM CDT Primary Malignant Neoplasm Of Prostate (HCC) PROSTATE-SPECIFIC AG (PSA) DIAGNOSTIC, S Routine 12/26/2023 12:36 PM CDT Primary Malignant Neoplasm Of Prostate (HCC) EXTI LIPID PANEL W REFLEX MEASURED LDL Routine 02/27/2023 10:06 AM CDT HEMOGLOBIN A1C, B Routine 01/12/2023 8:2 5 AM CDT Diabetes Mellitus Type 2 Without Complication (HCC) from Last 3 Months or Most Recently Relevant to Health Maintenance Results * MR Prostate without and with IV Contrast (12/26/2023 2:40 PM CDT) Anatomical Region Laterality Modality Pelvis, Abdominal RST LOS, A bdominal ARZ LOS, Abdominal FLA LOS N/A Magnetic Resonance Impressions 12/26/2023 5:54 PM CDT 1. ??Posttreatment changes in the prostate gland with a large ablation defect in the right posterior gland. 2. ??Small apparently diffusion restricted nodules along the inner wall of the ablation defect, indeterminate. These likely represent blood products but recurrence cannot be entirely excluded. Continued imaging follow-up is recommended. 3. ??No new worrisome nodules in the prostate gland. 4. ??No lymphadenopathy or suspicious osseous lesion. 5. ??Healing sacral insufficiencies fractures. Narrative 12/26/2023 5:54 PM CDT EXAM: MR PROSTATE WITHOUT AND WITH IV CONTRAST CLINICAL HISTORY: History of prostate cancer, [place] score: 7. Status post external beam radiation therapy followed by percutaneous cryoablation of the right posterior peripheral zone on 08/25/2022. Most recent PSA < 0.10 ng/mL. COMPARISON: Prostate MRI 06/22/2023 and 12/20/2022, and CT urogram 10/11/2023. PROSTATE: - Volume: 39 cc (PSA density 0.003). - Exam quality: Good. -Prostate gland: Deformity of the prostate gland with loss of zonal anatomy and a large ablation defect predominantly involving the right posterior gland. Two small nodular areas of diffusion restriction along the anterior and posterior carpenter of the ablation defect, measuring 7 mm and 1.2 cm, respectively (series 800 images 16, 19). No definite contrast enhancement seen in these areas. These likely represent blood products or debris along the wall of ablation but are technically indeterminate. No other worrisome nodules seen. - Seminal vesicles: Diffuse wall thickening and mural enhancement, likely inflammatory or related to treatment. LYMPH NODES: Negative for suspicious lymph node(s). The previously noted left periaortic lymph node measures 0.8 cm in short axis (series 3 image 1). BONES: Negative for suspicious bone lesion(s). Healing sacral insufficiency fractures. Post radiation changes throughout the pelvis. OTHER FINDINGS: Left renal cysts. Small fat containing umbilical hernia. Colonic diverticulosis. Small volume ascites. Diffusely thickened and trabeculated urinary bladder wall with multiple cellules. Bladder stimulator with a battery pack in the right side back. ??Tiny fat-containing bilateral inguinal hernias. PROSTATE MRI TECHNIQUE: Multiparametric MRI of the prostate was performed at 1.5 Allie with a surface coil. High resolution T2WI, DWI/ADC, and DCE imaging with IV contrast performed. Procedure Note Julia Trevino M.D., Ph.D. - 12/26/2023 EXAM: MR PROSTATE WITHOUT AND WITH IV CONTRAST CLINICAL HISTORY: History of prostate cancer, [place] score: 7. Statuspost external beam radiation therapy followed by percutaneous cryoablationof the right posterior peripheral zone on 08/25/2022. Most recent PSA <0.10 ng/mL. COMPARISON: Prostate MRI 06/22/2023 and 12/20/2022, and CT [id number]/11/2023. PROSTATE: - Volume: 39 cc (PSA density 0.003). - Exam quality: Good. -Prostate gland: Deformity of the prostate gland with loss of zonalanatomy and a large ablation defect predominantly involving the rightposterior gland. Two small nodular areas of diffusion restriction alongthe anterior and posterior carpenter of the ablation defect, measuring 7 mm and 1.2 cm, respectively (series 800images 16, 19). No definite contrast enhancement seen in these areas.These likely represent blood products or debris along the wall of ablationbut are technically indeterminate. No other worrisome nodules seen. - Seminal vesicles: Diffuse wall thickening and mural enhancement, likelyinflammatory or related to treatment. LYMPH NODES: Negative for suspicious lymph node(s). The previously notedleft periaortic lymph node measures 0.8 cm in short axis (series 3 image1). BONES: Negative for suspicious bone lesion(s). Healing sacralinsufficiency fractures. Post radiation changes throughout the pelvis. OTHER FINDINGS: Left renal cysts. Small fat containing umbilical hernia.Colonic diverticulosis. Small volume ascites. Diffusely thickened andtrabeculated urinary bladder wall with multiple cellules. Bladderstimulator with a battery pack in the right side back. Tiny fat-containing bilateral inguinal hernias. PROSTATE MRI TECHNIQUE: Multiparametric MRI of the prostate was performedat 1.5 Allie with a surface coil. High resolution T2WI, DWI/ADC, and DCEimaging with IV contrast performed. IMPRESSION: 1. Posttreatment changes in the prostate gland with a large ablationdefect in the right posterior gland. 2. Small apparently diffusion restricted nodules along the inner wall ofthe ablation defect, indeterminate. These likely represent blood productsbut recurrence cannot be entirely excluded. Continued imaging follow-up isrecommended. 3. No new worrisome nodules in the prostate gland. 4. No lymphadenopathy or suspicious osseous lesion. 5. Healing sacral insufficiencies fractures. Christie Teresa APRN.NNoé, M.S.N. IMG MRI PROCEDURES * PSA (Prostate-Specific Antigen), Diagnostic (12/26/2023 12:36 PM CDT) Prostate-Specific Ag <0.10 <=4.5 ng/mL 12/26/2023 1:48 PM CDT DTL Comment: ----ADDITIONAL INFORMATION---- The testing method is an electrochemiluminescence assay manufactured by [employer] and performed on the Modular or Ulises system. Values obtained with different assay methods or kits may be different and cannot be used interchangeably. Test results cannot be interpreted as absolute evidence for the presence or absence of malignant disease. Blood (Blood, Venous) 12/26/2023 12:36 PM CDT 12/26/2023 1:15 PM CDT Christie Teresa APRN.NNoé, M.S.N. LAB BLOOD ADD-ON [facility] [place] [address] [place] [address], [place] DTL [facility] [address] [place] [address] * Hemoglobin A1c (01/12/2023 8:25 AM CDT) Hemoglobin A1c, B 5.4 4.2 - 5.6 % 01/12/2023 11:51 AM CDT OWAT Blood (Blood, Venous) 01/12/2023 8:25 AM CDT 01/12/2023 11:09 AM CDT Leatha Arora D.O. LAB BLOOD ADD-ON [facility] [address] [place] [address], [place] OWAT [facility] in [place] [address] [place] [address] from Last 3 Months or Most Recently Relevant to Health Maintenance Advance Directives For more information, please contact: [phone] * Full Code (Latest Code Status on File) Date Activated Date Inactivated Comments 02/09/2023 6:53 AM 02/09/2023 2:09 PM Question Answer Comments Full Code: Discussed Care Teams Wrapper And Preserver Relationship Specialty Start Date End Date Elsewhere, Pcp PCP - General Internal Medicine 01/17/23
--- OUTSIDE RECORDS SUMMARY | 2024-02-12 17:59 | XMS_ITS | Patient Health Record ---
Author Organization [facility] Address [address] [place] [address] [address] [place] [address] Care Team Providers Care Coal Unloader Name Role Phone BahmanMary Primary Care Provider UnavailNegro Moya Unavailable [phone] Jean Marie Deluca PA-C Unavailable Unavailable Johny Serrato Unavailable [phone] Lauri Li Unavailable [phone] Armin Seaman Unavailable [phone] ALLERGIES Allergen (clinical drug ingredient) Drug/Non Drug Allergy documented on EMR Reaction Allergy Type Onset Date Status metformin Metformin Unknown Drug Allergy Active REASON FOR REFERRAL Reason MAN Therapeutic SIJ Diagnosis 1 Sacroiliitis (M46.1) Referral Organization [facility] Referring Provider First Name Lauri Referring Provider Last Name Jen Referring Provider Speciality Pain Medic ine Referred Organization [facility] Referred Provider Larui Li Referred Address [address],[place], [place],[address],[place] Referred Provider Specialty Pain Medicin e Referral Priority Routine Reason 1st MAN L4-S1 MBBs Diagnosis 1 Spondylosis without myelopathy or radiculopathy, lumbosacral region (M47.817) Referral Organization [facility] Referring Provider First Name Lauri Referring Provider Last Name Jen Referring Provider Speciality Pain Medic ine Referred Organization [facility] Referred Provider Lauri Li Referred Address [address],[place], [place],[address],[place] Referred Provider Specialty Pain Medicin e Referral Priority Routine Reason 2nd MAN L4-S1 MBBs Diagnosis 1 Spondylosis without myelopathy or radiculopathy, lumbosacral region (M47.817) Referral Organization [facility] Referring Provider First Name Johny Referring Provider Last Name Rojelio Referring Provider Speciality Pain Medic ine Referred Organization [facility] Referred Provider Mitch Serratoson Referred Address [address],[place], [place],[address], Referred Provider Specialty Pain Medicin e Referral Priority Routine Reason MAN L4-S1 RFA Diagnosis 1 Spondylosis without myelopathy or radiculopathy, lumbosacral region (M47.817) Referral Organization [facility] Referring Provider First Name Johny Referring Provider Last Name Rojelio Referring Provider Speciality Pain Medic ine Referred Organization [facility] Referred Provider Johny Serrato Referred Address [address] [place] [address] [address],[place], [place],[address], Referred Provider Specialty Pain Medicin e Referral Priority Routine MEDICATIONS Medication SIG (Take, Route, Frequency, Duration) Notes Start Date End Date Status Atorvastatin Calcium 10 MG Oral for 90 Days Active Lisinopril-hydroCHLOROthiazi de 20-12.5 MG TAKE 1 TABLET BY MOUTH EVERY DAY Oral for 90 Days Active oxyCODONE HCl 10 MG 1 tablet as needed Orally TID Active Venlafaxine HCl ER 150 MG Oral for 90 Days Active Potassium Chloride ER 20 MEQ Oral for 90 Days Active Pregabalin 150 MG 1 capsule Oral Twice a day for 30 days 01/03/2023 Active Calcitonin ([place]) 200 UNIT/ACT Nasal for 30 Days Active Zolpidem Tartrate 10 MG Oral for 30 Days Active Triamcinolone Acetonide 0.1 % APPLY TOPICALLY TO THE AFFECTED AREA THREE TIMES DAILY External for 15 Days Active Mirtazapine 15 MG Oral for 90 Days Active Alendronate Sodium 70 MG Oral for 84 Days Active Tamsulosin HCl 0.4 MG Oral for 90 Days Active hydrOXYzine HCl 25 MG Oral for 15 Days Active SOCIAL HISTORY Tobacco Use: Social History Observation Description Date Details (start date - stop date) Former Smoker NA - NA Sex Assigned At : Social History Observation Description Sex Assigned At Unknown Tobacco Use/Smoking: Question Answer Notes Are you a former smoker Alcohol Screen Question Answer Notes Did you have a drink containing alcohol in the p ast year? 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) Active confirmed Muscle wasting disorder (92593774) Problem Segmental and somatic dysfunction of lumbar region (M99.03) Active confirmed Somatic dysfunction of lumbar region (053664139) Problem Segmental and somatic dysfunction of sacral region (M99.04) Active confirmed Somatic dysfunction of sacral region (948130927) Problem Unsteadiness on feet (R26.81) Active confirmed Abnormal gait (96558658) Problem Low back pain, unspecified (M54.50) Active confirmed Low back pain (046699766) Problem Knee joint replacement status (Z96.659) Active confirmed Artificial knee joint present (983947887526) Problem Sacroiliitis (M46.1) Active confirmed Solitary sacroiliitis (195642320) VITAL SIGNS Blood pressure diastolic 82 mm Hg 05/02/2023 Height 72 in 05/02/2023 Blood pressure systolic 150 mm Hg 05/02/2023 Weight 332.0 lbs 05/02/2023 BMI 45.02 kg/m2 05/02/2023 PROCEDURES Procedure Date Ordered Date Performed Result Body Sit e Intervention: 03/02/2023 03/14/2023 Sched 03/28 Intervention: 05/02/2023 05/11/2023 sched 05/25 Intervention: 05/31/2023 06/13/2023 sched 07/03 Intervention: 07/05/2023 07/19/2023 sched 08/03 Encounters Encounter Location Date Provider Diagnosis [address] [facility] [address] [place] [address] 02/14/2023 Lauri Li [facility] [address] [place] [address] 02/24/2023 Negro Lawson [facility] [address] [place] [address] 02/27/2023 Negro Lawson [address] [facility] [address] [place] [address] 02/28/2023 Lauri Bowers Sacroiliitis M46.1 [facility] [address] [place] [address] [address] [facility] [place] [address] 03/09/2023 Negro Lawson [facility] [address] [place] [address] [address] [facility] [place] [address] 03/10/2023 Negro Lawson [facility] [address] [place] [address] [address] [facility] [place] [address] 03/15/2023 Negro Lawson [facility] [address] [place] [address] [address] [place] [address] 03/27/2023 Negro Lawson [address] [facility] [address] [place] [address] 03/28/2023 Lauri Bowers Sacroiliitis M46.1 [address] [facility] [address] [place] [address] 05/02/2023 Armin Bolick Sacroiliitis M46.1 ; Spondylosis without myelopathy or radiculopathy, lumbosacral region M47.817 ; Low back pain, unspecified M54.50 and Other chronic pain G89.29 [facility] [address] [place] [address] [address] [place] [address] 05/23/2023 Johny Serrato [address] [facility] [address] [place] [address] 05/25/2023 Johny Serrato Spondylosis without myelopathy or radiculopathy, lumbosacral region M47.817 [facility] [address] [place] [address] [address] [place] [address] 07/03/2023 Negro Lawson [address] [facility] [address] [place] [address] 07/04/2023 Johny Serrato Spondylosis without myelopathy or radiculopathy, lumbosacral region M47.817 [facility] [address] [place] [address] [address] [place] [address] 07/19/2023 Negro Lawson [facility] [address] [place] [address] 08/01/2023 Johny Serrato [address] [facility] [address] [place] [address] 08/03/2023 Johny Serrato Spondylosis without myelopathy or radiculopathy, lumbosacral region M47.817 ASSESSMENTS Encounter Date Diagnosis Assessment Notes Treatment Notes Treatment Clinical Notes 02/28/2023 Sacroiliitis (ICD-10 - M46.1) 03/28/2023 Sacroiliitis (ICD-10 - M46.1) 05/02/2023 Sacroiliitis (ICD-10 - M46.1) 05/25/2023 Spondylosis without myelopathy or radiculopathy, lumbosacral region (ICD-10 - M47.817) 07/04/2023 Spondylosis without myelopathy or radiculopathy, lumbosacral region (ICD-10 - M47.817) 08/03/2023 Spondylosis without myelopathy or radiculopathy, lumbosacral region (ICD-10 - M47.817) 05/02/2023 Spondylosis without myelopathy or radiculopathy, lumbosacral region (ICD-10 - M47.817) 05/02/2023 Low back pain, unspecified (ICD-10 - M54.50) 05/02/2023 Other chronic pain (ICD-10 - G89.29) Osvaldo presents to clinic today for evaluation regarding his chronic low back, bilateral lower extremity, and right knee pain. We discussed his current symptoms and medications. Based on his imaging, physical examination, and painful symptoms, I recommended a Bilateral L4-S1 MBB workup. I discussed the procedures in detail using spinal models and diagrams. He voiced interest in proceeding with the procedure, therefore I placed an order for this procedure to address his spondylosis pain. I also recommended continuing PT at [facility] for his low back pain. I have reviewed the [facility] database and did not find any inconsistencies. He will continue medication management through is PCP and will continue Oxycodone 10mg TID and Lyrica 150mg BID. This treatment plan was reviewed with Osvaldo, and he was agreeable. I will continue to monitor his progress, adjusting his treatment plan as necessary. He will return for further evaluation as needed. Discharge instructions reviewed verbally. Discussed the risks/benefits of prescribed medication. The patient is aware that medication may be discontinued at any time due to poor compliance with visits, and recommended treatment and/or if patient doesn't adhere to the signed pain contract. The patient was instructed to return to the office as scheduled and call with any questions, problems or concerns. 11/14/22 Lumbar MRIImpression:1. Compared to the previous exam, new recent sacral insufficiency fracture of the right sacral ala.2. No fractures of the lumbar spine.3. Lumbar spondylosis.4. At L4-5, mild narrowing of spinal canal and right neural foramina.5. At L5-S1, disc degeneration posterior disc bulge. Tapered narrowing of the thecal sac. No impingement of the traversing S1 nerve roots. Mild narrowing of the right neuroforamen 11/22/22 Sacrum CTImpression:Mildl y displaced right sacral ala fracture. 05/02/2023 Bishop Santillan, am serving as a scribe to document services personally performed by Armin Seaman PA-C, based upon my observations and the provider's statements to me. All documentation has been reviewed by the aforementioned CHIP. Armin Dong PA-C, attest that the above named individual is acting in scribe capacity, has observed my performance of the services and has documented them in accordance with my direction. The documentation recorded by the scribe accurately reflects the service I personally performed and the decisions made during the clinic visit. PLAN OF TREATMENT No Information Insurance Providers Payer Name Payer Address Payer Phone Subscriber Number Group Number Insured Name Patient Relationship to Insured Coverage Start Date Coverage End Date [facility] [employer] [address] [address] [place] [address] [phone] [id number] [id number] Osvaldo Zuniga Self - patient is the insured 2 Medicare Part B [employer] [address] [place] [address] [id number] Osvaldo Zuniga Self - patient is the insured 2 MEDICAL (GENERAL) HISTORY Medical History History ICD Code Anxiety Prostate cancer Depression Hypertension Hyperlipidemia Sleep apnea Prediabetes Surgical History Surgery Date(Month/Year) Right TKA and revision 2020 Bladder Stimulator Implant 02/2023
--- OUTSIDE RECORDS SUMMARY | 2024-02-12 18:00 | XMS_ITS | Clinical Summary ---
Author Organization [facility] Address [address] [place] [address] Care Team Providers Care Emergency Doctor Name Role Phone Mary Ruggiero PA-C Primary Care Provider [phone] Allergies Active Allergy Reactions Criticality Noted Date Comments Metformin Nausea Medium 06/22/2022 Medications Medication Sig Dispensed Refills Start Date End Date Status celecoxib (CELEBREX) 200 MG capsule Take 200 mg by mouth 2 times daily as needed for moderate pain Active Vitamin D3 (VITAMIN D, CHOLECALCIFEROL,) 25 mcg (1000 units) tablet Take 25 mcg by mouth daily Active clobetasol (TEMOVATE) 0.05 % external ointment Apply topically 2 times daily Active famotidine (PEPCID) 10 MG tablet Take 10 mg by mouth 2 times daily as needed (stomach upset while on clopidogrel) Active hydrOXYzine HCl (ATARAX) 25 MG tablet Take 50 mg by mouth every 6 hours as needed for itching Active multivitamin, therapeutic (THERA-VIT) TABS tablet Take 1 tablet by mouth daily Active vitamin E (TOCOPHEROL) 1000 units (450 mg) CAPS capsule Take 1,000 Units by mouth daily Active acetaminophen (TYLENOL) 325 MG tabletIndications :Staphylococcal arthritis of right knee (H),Infection of total right knee replacement, initial encounter (H24) Take 3 tablets (975 mg) by mouth every 8 hours 4 Active senna-docusate (SENOKOT-S/NASH LACE) 8.6-50 MG tabletIndications :Staphylococcal arthritis of right knee (H),Infection of total right knee replacement, initial encounter (H24) Take 1 tablet by mouth 2 times daily as needed for constipation 4 Active ceFAZolin (ANCEF) intermittent infusion 2 g in 100 mL dextrose PRE-MIXIndication s:Bone and/or Joint Infection Inject 100 mLs (2 g) into the vein every 8 hours for 40 days Please draw CBC with diff, creatinine, AST, and CRP weekly and fax [facility]. 4 02/28/20 24 Active aspirin (ASA) 325 MG EC tabletIndications :VTE Prophylaxis Take 1 tablet (325 mg) by mouth daily for 33 days 33 tablet 4 03/06/20 24 Active pregabalin (LYRICA) 75 MG capsuleIndication s:S/P revision of total knee, right Take 1 capsule (75 mg) by mouth 2 times daily 60 capsule 4 Active zolpidem (AMBIEN) 10 MG tabletIndications :Primary insomnia Take 1 tablet (10 mg) by mouth nightly as needed for sleep 30 tablet 4 Active oxyCODONE (ROXICODONE) 5 MG tabletIndications :S/P revision of total knee, right,Chronic pain syndrome,Postoper ative pain Take 1-2 tablets (5-10 mg) by mouth every 4 hours as needed for pain (5mg for pain 4-6/10; 10mg pain 7-10/10) 30 tablet 4 Active alendronate (FOSAMAX) 70 MG tabletIndications :Age-related osteoporosis without current pathological fracture Take 1 tablet (70 mg) by mouth every 7 days 4 tablet 4 Active atorvastatin (LIPITOR) 10 MG tabletIndications :Brain aneurysm Take 1 tablet (10 mg) by mouth daily 30 tablet 4 Active calcitonin, salmon, (MIACALCIN) 200 UNIT/ACT nasal sprayIndications: Age-related osteoporosis without current pathological fracture [place] 1 spray into one nostril alternating nostrils daily Alternate nostril each day. 3.7 mL 4 Active DULoxetine (CYMBALTA) 60 MG capsuleIndication s:Anxiety and depression Take 2 capsules (120 mg) by mouth daily 60 capsule 4 Active ferrous sulfate (FE TABS) 325 (65 Fe) MG EC tabletIndications :Postoperative anemia Take 1 tablet (325 mg) by mouth daily 30 tablet 4 Active lisinopril (ZESTRIL) 20 MG tabletIndications :Lymphedema of both lower extremities Take 1 tablet (20 mg) by mouth daily 30 tablet 4 Active mirtazapine (REMERON) 15 MG tabletIndications :Anxiety and depression Take 1 tablet (15 mg) by mouth at bedtime 30 tablet 4 Active tamsulosin (FLOMAX) 0.4 MG capsuleIndication s:Benign prostatic hyperplasia with urinary retention Take 2 capsules (0.8 mg) by mouth daily 60 capsule 4 Active tiZANidine (ZANAFLEX) 4 MG tabletIndications :S/P revision of total knee, right Take 1 tablet (4 mg) by mouth every 6 hours as needed for muscle spasms 30 tablet 4 Active alendronate (FOSAMAX) 70 MG tablet Take 70 mg by mouth every 7 days 02/02/20 24 Discontinued( Reorder (No AVS)) atorvastatin (LIPITOR) 10 MG tablet Take 10 mg by mouth daily 02/02/20 24 Discontinued( Reorder (No AVS)) calcitonin, salmon, (MIACALCIN) 200 UNIT/ACT nasal spray [place] 1 spray into one nostril alternating nostrils daily Alternate nostril each day. 02/02/20 24 Discontinued( Reorder (No AVS)) clopidogrel (PLAVIX) 75 MG tablet Take 75 mg by mouth daily 01/26/20 24 Discontinued( Therapy completed (No AVS)) DULoxetine (CYMBALTA) 60 MG capsule Take 120 mg by mouth daily 02/02/20 24 Discontinued( Reorder (No AVS)) ferrous sulfate (FE TABS) 325 (65 Fe) MG EC tablet Take 325 mg by mouth daily 02/02/20 24 Discontinued( Reorder (No AVS)) furosemide (LASIX) 40 MG tablet Take 40 mg by mouth daily 01/23/20 24 Discontinued( Stop at Discharge) lisinopril (ZESTRIL) 20 MG tablet Take 20 mg by mouth daily 02/02/20 24 Discontinued( Reorder (No AVS)) mirtazapine (REMERON) 30 MG tablet Take 15 mg by mouth at bedtime 02/02/20 24 Discontinued( Reorder (No AVS)) oxyCODONE IR (ROXICODONE) 10 MG tablet Take 10 mg by mouth 3 times daily 01/19/20 24 Discontinued( Stop at Discharge) pregabalin (LYRICA) 75 MG capsule Take 75 mg by mouth 2 times daily 01/23/20 24 Discontinued( Reorder (No AVS)) tamsulosin (FLOMAX) 0.4 MG capsule Take 0.8 mg by mouth daily 02/02/20 24 Discontinued( Reorder (No AVS)) tiZANidine (ZANAFLEX) 4 MG tablet Take 4 mg by mouth every 6 hours as needed for muscle spasms 02/02/20 24 Discontinued( Reorder (No AVS)) zolpidem (AMBIEN) 10 MG tablet Take 10 mg by mouth nightly as needed for sleep 01/23/20 24 Discontinued( Reorder (No AVS)) oxyCODONE (ROXICODONE) 5 MG tabletIndications :Staphylococcal arthritis of right knee (H),Infection of total right knee replacement, initial encounter (H24) Take 1 tablet (5 mg) by mouth every 4 hours as needed for severe pain 25 tablet 4 01/26/20 24 Discontinued( Dose adjustment) aspirin (ASA) 325 MG EC tabletIndications :VTE Prophylaxis Take 1 tablet (325 mg) by mouth daily for 42 days 4 02/02/20 24 Discontinued( Reorder (No AVS)) polyethylene glycol (MIRALAX) 17 GM/Dose powderIndications :Staphylococcal arthritis of right knee (H),Infection of total right knee replacement, initial encounter (H24) Take 17 g by mouth daily 4 01/25/20 24 Discontinued( Therapy completed (No AVS)) pregabalin (LYRICA) 75 MG capsuleIndication s:S/P revision of total knee, right Take 1 capsule (75 mg) by mouth 2 times daily 30 capsule 4 02/02/20 24 Discontinued( Reorder (No AVS)) zolpidem (AMBIEN) 10 MG tabletIndications :Primary insomnia Take 1 tablet (10 mg) by mouth nightly as needed for sleep 14 tablet 4 02/02/20 24 Discontinued( Reorder (No AVS)) oxyCODONE (ROXICODONE) 5 MG tabletIndications :S/P revision of total knee, right,Postoperati ve pain,Chronic pain syndrome Take 1-2 tablets (5-10 mg) by mouth every 4 hours as needed for pain (5mg for pain 4-6/10; 10mg pain 7-10/10) 40 tablet 4 02/02/20 24 Discontinued( Reorder (No AVS)) Active Problems Problem Noted Date Diagnosed Date Septic joint 01/15/2024 Encounters Date Type Department Care Team Description 02/06/2024 Refill [facility] [address] [address] Robyn Keys APRN SOFTWARE RELEASE ENGINEER Medication Refill 02/02/2024 7:30 AM CDT Discharge Summary Detention [address] [address] Robyn Keys APRN SOFTWARE RELEASE ENGINEER Discharge Summary Detention 02/02/2024 Refill [facility] [address] [address] Robyn Keys APRN SOFTWARE RELEASE ENGINEER Medication Refill 02/02/2024 Travel 01/31/2024 Home Infusion ([facility]) [facility] [address] [place] [phone] Nadya Burrows [facility] 01/31/2024 Telephone [facility] [address] [place] [phone] None Appointment 01/30/2024 8:00 AM CDT Transitional Care Unit Visit [address] [address] Feliberto Leigh MD 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); Postoperative anemia; Benign prostatic hyperplasia with urinary retention; Brain aneurysm 01/29/2024 9:00 AM CDT Transitional Care Unit Visit [address] [phone] Robyn Keys APRN CNP 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); S/P revision of total knee, right; Postoperative anemia; Benign prostatic hyperplasia with urinary retention; Lymphedema of both lower extremities 01/29/2024 Travel 01/26/2024 10:30 AM CDT Transitional Care Unit Visit [facility] [address] [place] [phone] Robyn Keys APRN CNP Lymphedema of both lower extremities (Primary Dx); Benign prostatic hyperplasia with urinary retention; Postoperative anemia 01/25/2024 9:30 AM CDT Transitional Care Unit Visit [address] [phone] Robyn Keys APRN CNP 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); S/P revision of total knee, right; Postoperative pain; Chronic pain syndrome; Benign prostatic hyperplasia with urinary retention; Lymphedema of both lower extremities; Anxiety and depression; Brain aneurysm 01/25/2024 Travel 01/24/2024 Documentation Only [facility] [address] [place] [phone] [facility] 01/23/2024 Refill [facility] [address] [place] [phone] Robyn Keys APRN SOFTWARE RELEASE ENGINEER 01/17/2024 4:56 PM CDT Anesthesia Event [facility] [address] [place] [address] Rudy Avila MD Young, Addilyn 01/17/2024 4:30 PM CDT - 01/17/2024 8:15 PM CDT Surgery [facility] [address] [place] [address] Caleb Garcia MD RIGHT REVISION TOTAL KNEE ARTHROPLASTY 01/15/2024 8:33 PM CDT - 01/23/2024 11:21 AM CDT Hospital Encounter [facility] [address] [place] [address] Haseeb Barboza MD Iqbal, MD Denise Ziegler, MD Tiago Manriquez, Arik Bragg MD 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); Infection of total right knee replacement, initial encounter (H24) Discharge Disposition: [facility] Facility from Last 3 Months Social History Tobacco Use Types Packs/Day Years Used Date Smoking Tobacco: Never Smokeless Tobacco: Never Tobacco Cessation:Counseling Given: Not Answered Alcohol Use Standard Drinks/Week Comments Not Currently 0 (1 standard drink = 0.6 oz pur e alcohol) Adolescent Education Answer Date Record ed Getting School Help Needed Not on file 06/10 Sex and Gender Information Value Date Recorded Sex Assigned at Not on file Gender Identity Not on file Sexual Orientation Not on file Last Filed Vital Signs Vital Sign Reading Time Taken Comments Blood Pressure 123/67 02/02/2024 8:51 AM CDT Pulse 90 02/02/2024 8:51 AM CDT Temperature 37.1 ??C (98.8 ??F) 02/02/2024 8:51 AM CD T Respiratory Rate 16 02/02/2024 8:51 AM CDT Oxygen Saturation 98% 02/02/2024 8:51 AM CDT Inhaled Oxygen Concentration - - Weight 140.5 kg (309 lb 12.8 oz) 02/02/2024 8:51 AM CDT Height 182.9 cm (6') 02/02/2024 8:51 AM CDT Body Mass Index 42.02 02/02/2024 8:51 AM CDT Plan of Treatment Health Maintenance Due Date Last Done Comments ADVANCE CARE PLANNING 1955 ANNUAL REVIEW OF HM ORDERS 1957 CT COLONOGRAPHY 1957 FIT 1957 FLEX SIG 1957 LIPID 1957 sDNA (Cologuard) 1957 Pneumococcal Vaccine: 65+ Years (1 of 2 - PCV) 1963 HEPATITIS C SCREENING 1975 ZOSTER IMMUNIZATION (1 of 2) 1976 RSV VACCINE ( & 60+) (1 - 1-dose 60+ series) 2017 COVID-19 Vaccine (2 - Pfizer risk series) 12/30/2020 12/09/2020 FALL RISK ASSESSMENT 2022 PHQ-2 (once per calendar year) 2023 MEDICARE ANNUAL WELLNESS VISIT 03/03/2024 03/03/2023, 07/06/2020 INFLUENZA VACCINE (Season Ended) 2024 GLUCOSE 01/28/2027 01/29/2024, 03/2024, 01/22/2024, Additional history exists COLONOSCOPY 03/28/2032 03/28/2022, 09/2018, 09/17/2018 COLORECTAL CANCER SCREENING 03/28/2032 DTAP/TDAP/TD IMMUNIZATION (4 - Td or Tdap) 10/03/2033 10/03/2023, 05/13/2013, 12/23/2002 HPV IMMUNIZATION Aged Out No longer e ligible based on patient's age to complete this topic IPV IMMUNIZATION Aged Out No longer e ligible based on patient's age to complete this topic MENINGITIS IMMUNIZATION Aged Out No l onger eligible based on patient's age to complete this topic RSV MONOCLONAL ANTIBODY Aged Out No l onger eligible based on patient's age to complete this topic Medical Devices Implanted Type Area Production Control Manager Device Identifier Shelf Expiration Date Model / Serial / Lot Bone Cement Simplex Full Dose 6191-1-001 - [id number] Implanted:Qty : 3 on 01/17/2024 by Caleb Garcia MD at [facility] Cement, Bone Right: Knee [employer] [id number] 10/18/2025 6191-1-00 1 / / [id number] Imp Comp Fem Strk Triathln Dist Aug 5mm Rt 6 5540-A-602 - [id number] Implanted:Qty : 1 on 01/17/2024 by Caleb Garcia MD at [facility] Total Joint Component /Insert Right: Knee [employer] [id number] 03/29/2028 5540-A-60 2 / / [id number] Imp Comp Fem Strk Triathln Dist Aug 5mm Rt 6 5540-A-602 - [id number] Implanted:Qty : 1 on 01/17/2024 by Caleb Garcia MD at [facility] Total Joint Component /Insert Right: Knee [employer] [id number] 11/02/2027 5540-A-60 2 / / [id number] Imp Comp Fem Strk Triathln Ps Rt 6 5515-F-602 - [id number] Implanted:Qty : 1 on 01/17/2024 by Caleb Garcia MD at [facility] Total Joint Component /Insert Right: Knee [employer] [id number] 11/16/2028 5515-F-60 2 / / [id number] Triathlon All Poly Tibial Compent - Ps Size #5, 11mm Ps Implanted:Qty : 1 on 01/17/2024 by Caleb Garcia MD at [facility] Total Joint Component /Insert Right: Knee [employer] [id number] 08/13/2028 5535-A-51 1 / / [id number] Explanted Type Area Production Control Manager Device Identifier Shelf Expiration Date Model / Serial / Lot Right Knee 4 Components Explanted:Qty: 1 on 01/17/2024 by Caleb Garcia MD at [facility] Right: Knee Procedures Procedure Name Priority Date/Time Associated Diagnosis Comments CBC WITH PLATELETS & DIFFERENTIAL Routine 02/01/2024 8:20 AM CDT Unspecified infectious disease TRIP CHARGE - LAB ONLY Routine 02/01/2024 8:20 AM CDT Unspecified infectious disease CBC WITH PLATELETS AND DIFFERENTIAL Routine 02/01/2024 8:20 AM CDT Unspecified infectious disease CRP INFLAMMATION Routine 02/01/2024 8:20 AM CDT Unspecified infectious disease AST Routine 02/01/2024 8:20 AM CDT Unspecified infectious disease CREATININE Routine 02/01/2024 8:20 AM CDT Unspecified infectious disease COMPREHENSIVE METABOLIC PANEL Routine 01/29/2024 2:51 PM CDT Localized swelling, mass and lump, lower limb, bilateral Anorexia HEMOGLOBIN Routine 01/29/2024 2:51 PM CDT Localized swelling, mass and lump, lower limb, bilateral Anorexia CBC WITH PLATELETS & DIFFERENTIAL Routine 01/24/2024 6:48 AM CDT Unspecified infectious disease QUANTIFERON-TB GOLD PLUS Routine 01/24/2024 6:48 AM CDT Encounter for screening for respiratory tuberculosis TRIP CHARGE - LAB ONLY Routine 01/24/2024 6:48 AM CDT Unspecified infectious disease TRIP CHARGE - LAB ONLY Routine 01/24/2024 6:48 AM CDT Encounter for screening for respiratory tuberculosis QUANTIFERON TB GOLD PLUS Routine 01/24/2024 6:48 AM CDT Encounter for screening for respiratory tuberculosis QUANTIFERON TB GOLD PLUS PURPLE TUBE Routine 01/24/2024 6:48 AM CDT Encounter for screening for respiratory tuberculosis QUANTIFERON TB GOLD PLUS YELLOW TUBE Routine 01/24/2024 6:48 AM CDT Encounter for screening for respiratory tuberculosis QUANTIFERON TB GOLD PLUS GREEN TUBE Routine 01/24/2024 6:48 AM CDT Encounter for screening for respiratory tuberculosis QUANTIFERON TB GOLD PLUS PELAEZ TUBE Routine 01/24/2024 6:48 AM CDT Encounter for screening for respiratory tuberculosis CBC WITH PLATELETS AND DIFFERENTIAL Routine 01/24/2024 6:48 AM CDT Unspecified infectious disease CRP INFLAMMATION Routine 01/24/2024 6:48 AM CDT Unspecified infectious disease AST Routine 01/24/2024 6:48 AM CDT Unspecified infectious disease CREATININE Routine 01/24/2024 6:48 AM CDT Unspecified infectious disease BASIC METABOLIC PANEL Routine 01/23/2024 5:27 AM CDT BASIC METABOLIC PANEL Routine 01/22/2024 7:14 AM CDT POTASSIUM Timed 01/22/2024 2:25 AM CDT POTASSIUM STAT 01/21/2024 9:04 PM CDT BASIC METABOLIC PANEL Routine 01/21/2024 5:[address] ABDOMEN PELVIS W/O CONTRAST Routine 01/20/2024 8:46 AM CDT HEMOGLOBIN Routine 01/20/2024 6:33 AM CDT BASIC METABOLIC PANEL Routine 01/20/2024 6:33 AM CDT XR CHEST PORT 1 VIEW STAT 01/19/2024 2:12 PM CDT PICC SINGLE LUMEN PLACEMENT Routine 01/19/2024 2:11 PM CDT CBC WITH PLATELETS Routine 01/19/2024 7: 26 AM CDT BASIC METABOLIC PANEL Routine 01/19/2024 7:26 AM CDT CRP INFLAMMATION Routine 01/19/2024 7:26 AM CDT HEMOGLOBIN Routine 01/18/2024 7:34 AM CDT BASIC METABOLIC PANEL Routine 01/18/2024 7:34 AM CDT CRP INFLAMMATION Routine 01/18/2024 7:34 AM CDT GLUCOSE BY METER Routine 01/17/2024 8:16 PM CDT XR KNEE PORT RIGHT 1/2 VIEWS STAT 01/17/2024 8:02 PM CDT AEROBIC BACTERIAL CULTURE ROUTINE Routine 01/17/2024 6:42 PM CDT AEROBIC BACTERIAL CULTURE ROUTINE Routine 01/17/2024 6:42 PM CDT ANAEROBIC BACTERIAL CULTURE ROUTINE Routine 01/17/2024 6:42 PM CDT ANAEROBIC BACTERIAL CULTURE ROUTINE Routine 01/17/2024 6:42 PM CDT AEROBIC BACTERIAL CULTURE ROUTINE Routine 01/17/2024 6:41 PM CDT AEROBIC BACTERIAL CULTURE ROUTINE Routine 01/17/2024 6:41 PM CDT AEROBIC BACTERIAL CULTURE ROUTINE Routine 01/17/2024 6:41 PM CDT AEROBIC BACTERIAL CULTURE ROUTINE Routine 01/17/2024 6:41 PM CDT ANAEROBIC BACTERIAL CULTURE ROUTINE Routine 01/17/2024 6:41 PM CDT ANAEROBIC BACTERIAL CULTURE ROUTINE Routine 01/17/2024 6:41 PM CDT ANAEROBIC BACTERIAL CULTURE ROUTINE Routine 01/17/2024 6:41 PM CDT ANAEROBIC BACTERIAL CULTURE ROUTINE Routine 01/17/2024 6:41 PM CDT ANE AIRWAY ETT PERFORMABLE Routine 01/17/2024 5:07 PM CDT REVISION, TOTAL ARTHROPLASTY, KNEE 01/17/2024 4:59 PM CDT Staphylococcal arthritis of right knee (H) Case Notes NEEDS IMPLANT SHEETBO reviewed/Billed per invoice and Epic prices (lower [place]) GLUCOSE BY METER Routine 01/17/2024 4:07 PM CDT GLUCOSE BY METER Routine 01/17/2024 11:2 4 AM CDT BASIC METABOLIC PANEL Routine 01/17/2024 8:32 AM CDT CBC WITH PLATELETS Routine 01/17/2024 8: 32 AM CDT CRP INFLAMMATION Routine 01/17/2024 8:32 AM CDT GLUCOSE BY METER Routine 01/17/2024 5:47 AM CDT GLUCOSE BY METER Routine 01/16/2024 10:1 5 PM CDT URINE CULTURE Routine 01/16/2024 4:40 PM CDT UA MACROSCOPIC WITH REFLEX TO MICRO AND CULTURE Routine 01/16/2024 4:40 PM CDT BLOOD CULTURE STAT 01/16/2024 2:09 PM CDT BLOOD CULTURE STAT 01/16/2024 2:[address] ABDOMEN PELVIS W/O CONTRAST Routine 01/16/2024 11:25 AM CDT MRSA MSSA PCR, NASAL SWAB STAT 01/16/2024 10:37 AM CDT IRRIGATION AND DEBRIDEMENT KNEE, PLACE ANTIBIOTIC CEMENT BEADS / SPACE Routine 01/16/2024 9:53 AM CDT Staphylococcal arthritis of right knee (H) ABO/RH TYPE AND SCREEN STAT 01/16/2024 8:45 AM CDT TYPE AND SCREEN, ADULT STAT 01/16/2024 8:45 AM CDT ERYTHROCYTE SEDIMENTATION RATE AUTO Routine 01/16/2024 8:45 AM CDT CRP INFLAMMATION Routine 01/16/2024 8:45 AM CDT CBC WITH PLATELETS Routine 01/16/2024 8: 45 AM CDT COMPREHENSIVE METABOLIC PANEL Routine 01/16/2024 8:45 AM CDT EKG 12-LEAD, TRACING ONLY Routine 01/16/2024 7:10 AM CDT from Last 3 Months Results * Trip Charge - LAB ONLY (02/01/2024 8:20 AM CDT) Only the most recent of3 resultswithin the time period is included. Other TOPOGRAPHY UNKNOWN / Unknown Billing only / Unknown 02/01/2024 8:20 AM CDT 02/01/2024 1:04 PM CDT Robynsergio Lopez Ludmila ENAMORADO [facility] CHARG E PERFORMABLES LABORATORY [facility] [address], [address] [place] [address], [facility] [phone] * (ABNORMAL) CBC with platelets and differential (02/01/2024 8:20 AM CDT) Only the most recent of2 resultswithin the time period is included. WBC Count 6.5 4.0 - 11.0 10e3/uL 02/01/2024 1:15 PM CDT LABORATORY RBC Count 2.89(L) 4.40 - 5.90 10e6/uL 02/01/2024 1:15 PM CDT LABORATORY Hemoglobin 8.1(L) 13.3 - 17.7 g/dL 02/01/2024 1:15 PM CDT LABORATORY Hematocrit 26.8(L) 40.0 - 53.0 % 02/01/2024 1:15 PM CDT LABORATORY MCV 93 78 - 100 fL 02/01/2024 1:15 PM CDT LABORATORY MCH 28.0 26.5 - 33.0 pg 02/01/2024 1:15 PM CDT LABORATORY MCHC 30.2(L) 31.5 - 36.5 g/dL 02/01/2024 1:15 PM CDT LABORATORY RDW 18.4(H) 10.0 - 15.0 % 02/01/2024 1:15 PM CDT LABORATORY Platelet Count 243 150 - 450 10e3/uL 02/01/2024 1:15 PM CDT LABORATORY % Neutrophils 67 % 02/01/2024 1:15 PM CDT LABORATORY % Lymphocytes 15 % 02/01/2024 1:15 PM CDT LABORATORY % Monocytes 11 % 02/01/2024 1:15 PM CDT LABORATORY % Eosinophils 5 % 02/01/2024 1:15 PM CDT LABORATORY % Basophils 1 % 02/01/2024 1:15 PM CDT LABORATORY % Immature Granulocytes 1 % 02/01/2024 1:15 PM CDT LABORATORY NRBCs per 100 WBC 0 <1 /100 024 1:15 PM CDT LABORATORY Absolute Neutrophils 4.3 1.6 - 8.3 10e3/uL 02/01/2024 1:15 PM CDT LABORATORY Absolute Lymphocytes 1.0 0.8 - 5.3 10e3/uL 02/01/2024 1:15 PM CDT LABORATORY Absolute Monocytes 0.7 0.0 - 1.3 10e3/uL 02/01/2024 1:15 PM CDT LABORATORY Absolute Eosinophils 0.4 0.0 - 0.7 10e3/uL 02/01/2024 1:15 PM CDT LABORATORY Absolute Basophils 0.1 0.0 - 0.2 10e3/uL 02/01/2024 1:15 PM CDT LABORATORY Absolute Immature Granulocytes 0.0 <=0.4 10e3/uL 02/01/2024 1:15 PM CDT LABORATORY Absolute NRBCs 0.0 10e3/uL 02/01/2024 1:15 PM CDT LABORATORY Blood STRUCTURE OF LEFT UPPER LIMB / Unknown Venipuncture / Unknown 02/01/2024 8:20 AM CDT 02/01/2024 1:04 PM CDT Robyn Keys APRN SOFTWARE RELEASE ENGINEER LAB - BLO OD ORDERABLES LABORATORY [facility] [address], [address] [place] [address], [facility] [phone] * (ABNORMAL) CRP inflammation (02/01/2024 8:20 AM CDT) Only the most recent of6 resultswithin the time period is included. CRP Inflammation 61.51(H) <5.00 mg/L 02/01/2024 2:06 PM CDT LABORATORY Blood STRUCTURE OF LEFT UPPER LIMB / Unknown Venipuncture / Unknown 02/01/2024 8:20 AM CDT 02/01/2024 1:04 PM CDT Robyn Spearchris [facility] LAB - BLO OD ORDERABLES LABORATORY [facility] [address], [address] [place] [address], [place] [phone] * Creatinine (02/01/2024 8:20 AM CDT) Only the most recent of2 resultswithin the time period is included. [facility] Creatinine 0.67 0.67 - 1.17 mg/dL 02/01/2024 2:06 PM CDT LABORATORY GFR Estimate >90 >60 mL/min/1.73 m2 02/01/2024 2:06 PM CDT LABORATORY Blood STRUCTURE OF LEFT UPPER LIMB / Unknown Venipuncture / Unknown 02/01/2024 8:20 AM CDT 02/01/2024 1:04 PM CDT Robyn Jessicasharmila Keys APRN [facility] LAB - BLO OD ORDERABLES LABORATORY [facility] [address], [address] [place] [address], [place] [phone] * AST (02/01/2024 8:20 AM CDT) Only the most recent of2 resultswithin the time period is included. Pathologist [facility] AST 28 0 - 45 U/L 02/01/2024 2:0 6 PM CDT LABORATORY Blood STRUCTURE OF LEFT UPPER LIMB / Unknown Venipuncture / Unknown 02/01/2024 8:20 AM CDT 02/01/2024 1:04 PM CDT Robyn Keys FEI [facility] LAB - BLO OD ORDERABLES LABORATORY [facility] [address], [address] [place] [address], [facility] [phone] * (ABNORMAL) Hemoglobin (01/29/2024 2:51 PM CDT) Only the most recent of3 resultswithin the time period is included. Hemoglobin 7.6(L) 13.3 - 17.7 g/dL 01/29/2024 5:47 PM CDT LABORATORY Blood BLOOD SPECIMEN / Unknown Venipuncture / Unknown 01/29/2024 2:51 PM CDT 01/29/2024 5:38 PM CDT Robyn Spearchris [facility] LAB - BLO OD ORDERABLES Performing Organization Address City/[facility]/ZIP Co de Phone Number LABORATORY [facility] [address], [address] [place] [address], [facility] [phone] * (ABNORMAL) Comprehensive metabolic panel (01/29/2024 2:51 PM CDT) Only the most recent of2 resultswithin the time period is included. Sodium 143 135 - 145 mmol/L 01/29/2024 6:14 PM CDT LABORATORY Comment:Reference intervals for this test were updated on 06/13/2023 to more accurately reflect our healthy population. There may be differences in the flagging of prior results with similar values performed with this method. Interpretation of those prior results can be made in the context of the updated reference intervals. Potassium 4.2 3.4 - 5.3 mmol/L 01/29/2024 6:14 PM CDT LABORATORY Carbon Dioxide (CO2) 25 22 - 29 mmol/L 01/29/2024 6:14 PM [facility] LABORATORY Anion Gap 14 7 - 15 mmol/L 01/29/2024 6:14 PM [facility]OR[facility] Urea Nitrogen 14.9 8.0 - 23.0 mg/dL 01/29/2024 6:14 PM [facility] Creatinine 0.77 0.67 - 1.17 mg/dL 01/29/2024 6:14 PM [facility]ORAT[facility] GFR Estimate >90 >60 mL/min/1. 73m2 01/29/2024 6:14 PM [facility]OR[facility] Calcium 8.9 8.8 - 10.2 mg/dL 01/29/2024 6:14 PM [facility] Chloride 104 98 - 107 mmol/L 01/29/2024 6:14 PM [facility] Glucose 103(H) 70 - 99 mg/dL 01/29/2024 6:14 PM [facility] Alkaline Phosphatase 132 40 - 150 U/L 01/29/2024 6:14 PM [facility] LABORATORY Comment:Reference intervals for this test were updated on 08/01/2023 to more accurately reflect our healthy population. There may be differences in the flagging of prior results with similar values performed with this method. Interpretation of those prior results can be made in the context of the updated reference intervals. AST 28 0 - 45 U/L 01/29/2024 6:14 PM [facility] LABORATORY Comment:Reference intervals for this test were updated on 02/27/2023 to more accurately reflect our healthy population. There may be differences in the flagging of prior results with similar values performed with this method. Interpretation of those prior results can be made in the context of the updated reference intervals. ALT <5 0 - 70 U/L 01/29/2024 6:14 PM [facility] LABORATORY Comment:Reference intervals for this test were updated on 02/27/2023 to more accurately reflect our healthy population. There may be differences in the flagging of prior results with similar values performed with this method. Interpretation of those prior results can be made in the context of the updated reference intervals. Protein Total 7.5 6.4 - 8.3 g/dL 01/29/2024 6:14 PM [facility]OR[facility] Albumin 2.8(L) 3.5 - 5.2 g/dL 01/29/2024 6:14 PM CDT LABORATORY Bilirubin Total 0.6 <=1.2 mg/dL 01/29/2024 6:14 PM CDT LABORATORY Blood BLOOD SPECIMEN / Unknown Venipuncture / Unknown 01/29/2024 2:51 PM CDT 01/29/2024 5:38 PM CDT Robyn Keys APRN, CNP LAB - BLO OD ORDERABLES LABORATORY [facility] [address] 1[address], [address] [place] [address], [facility] [phone] * Quantiferon TB Gold Plus (01/24/2024 6:48 AM CDT) [facility] Quantiferon-TB Gold Plus Negative Negative 01/25/2024 1:14 PM CDT SPECIALTY CORE/PROT/END O Comment: No interferon gamma response to M.tuberculosis antigens was detected. Infection with M.tuberculosis is unlikely, however a single negative result does not exclude infection. In patients at high risk for infection, a second test should be considered in accordance with the 2017 ATS/IDSA/CDC Clinical Pract ice Guidelines for Diagnosis of Tuberculosis in Adults and Children TB1 Ag minus Nil Value 0.00 IU/mL 01/25/2024 1:14 PM CDT SPECIALTY CORE/PROT/END O TB2 Ag minus Nil Value 0.00 IU/mL 01/25/2024 1:14 PM CDT SPECIALTY CORE/PROT/END O Mitogen minus Nil Result 0.52 IU/mL 01/25/2024 1:14 PM CDT SPECIALTY CORE/PROT/END O Nil Result 0.00 IU/mL 01/25/2024 1:14 PM CDT SPECIALTY CORE/PROT/END O Blood STRUCTURE OF RIGHT UPPER LIMB / Unknown Venipuncture / Unknown 01/24/2024 6:48 AM CDT 01/24/2024 9:09 AM CDT Robyn Keys APRN SOFTWARE RELEASE ENGINEER LAB - ALEXANDRE RO GENERAL ORDERABLES UM SPECIALTY CORE/PROT/ENDO UM Specialty Core/Prot/Endo [address] [facility] [address] Unit [facility], [address] * Quantiferon TB Gold Plus Purple Tube (01/24/2024 6:48 AM CDT) Quantiferon Mitogen 0.52 IU/mL 01/25/2024 1:04 PM CDT UM SPECIALTY CORE/PROT/ENDO Blood STRUCTURE OF RIGHT UPPER LIMB / Unknown Venipuncture / Unknown 01/24/2024 6:48 AM CDT 01/24/2024 9:09 AM CDT Robyn Jessicasharmila Keys APRN, CNP LAB - ALEXANDRE RO GENERAL ORDERABLES UM SPECIALTY CORE/PROT/ENDO Specialty Core/Prot/Endo [address] [facility] Unit [facility], [address] * Quantiferon TB Gold Plus Yellow Tube (01/24/2024 6:48 AM CDT) Quantiferon TB2 Tube 0.00 01/25/2024 1:05 PM CDT SPECIALTY CORE/PROT/ENDO Blood STRUCTURE OF RIGHT UPPER LIMB / Unknown Venipuncture / Unknown 01/24/2024 6:48 AM CDT 01/24/2024 9:09 AM CDT Robynsergio Keys APRN, CNP LAB - ALEXANDRE RO GENERAL ORDERABLES UM SPECIALTY CORE/PROT/ENDO UM Specialty Core/Prot/Endo [address] [facility] [address] Unit [facility], [address] * Quantiferon TB Gold Plus Green Tube (01/24/2024 6:48 AM CDT) Quantiferon TB1 Tube 0.00 IU/mL 01/25/2024 1:07 PM CDT SPECIALTY CORE/PROT/ENDO Blood STRUCTURE OF RIGHT UPPER LIMB / Unknown Venipuncture / Unknown 01/24/2024 6:48 AM CDT 01/24/2024 9:09 AM CDT Robyn Jessicasharmila Keys APRN [facility] LAB - [facility] RO GENERAL ORDERABLES UM SPECIALTY CORE/PROT/ENDO Specialty Core/Prot/Endo [address] [facility], [address] * Quantiferon TB Gold Plus Pelaez Tube (01/24/2024 6:48 AM CDT) Quantiferon Nil Tube 0.00 IU/mL 01/25/2024 1:07 PM CDT SPECIALTY CORE/PROT/ENDO Blood STRUCTURE OF RIGHT UPPER LIMB / Unknown Venipuncture / Unknown 01/24/2024 6:48 AM CDT 01/24/2024 9:09 AM CDT Robyn Keys APRN [facility] LAB - [facility] GENERAL ORDERABLES Performing Organization Address City/[facility]/ZIP Co de Phone Number UM SPECIALTY CORE/PROT/ENDO Specialty Core/Prot/Endo [address] [facility], [facility] [address] * (ABNORMAL) Basic metabolic panel (01/23/2024 5:27 AM CDT) Only the most recent of7 resultswithin the time period is included. Sodium 137 135 - 145 mmol/L 01/23/2024 6:19 AM CDT LABORATORY Comment:Reference intervals for this test were updated on 06/13/2023 to more accurately reflect our healthy population. There may be differences in the flagging of prior results with similar values performed with this method. Interpretation of those prior results can be made in the context of the updated reference intervals. Potassium 4.1 3.4 - 5.3 mmol/L 01/23/2024 6:19 AM CDT LABORATORY Chloride 103 98 - 107 mmol/L 01/23/2024 6:19 AM CDT LABORATORY Carbon Dioxide (CO2) 27 22 - 29 mmol/L 01/23/2024 6:19 AM CDT LABORATORY Anion Gap 7 7 - 15 mmol/L 01/23/2024 6:19 AM CDT LABORATORY Urea Nitrogen 14.4 8.0 - 23.0 mg/dL 01/23/2024 6:19 AM CDT LABORATORY Creatinine 0.94 0.67 - 1.17 mg/dL 01/23/2024 6:19 AM CDT LABORATORY GFR Estimate 89 >60 mL/min/1. 73m2 01/23/2024 6:19 AM CDT LABORATORY Calcium 8.5(L) 8.8 - 10.2 mg/dL 01/23/2024 6:19 AM CDT LABORATORY Glucose 118(H) 70 - 99 mg/dL 01/23/2024 6:19 AM CDT LABORATORY Blood BLOOD SPECIMEN / Unknown Venipuncture / Unknown 01/23/2024 5:27 AM CDT 01/23/2024 5:54 AM CDT Susan Moody MD LAB - BLOOD ORDERABL ES [facility] [address] 1[address], [address] [place] [address], [place] [phone] * Potassium (01/22/2024 2:25 AM CDT) Only the most recent of2 resultswithin the time period is included. Potassium 3.6 3.4 - 5.3 mmol/L 01/22/2024 2:52 AM CDT LABORATORY Blood VENOUS LINE / Unknown Venipuncture / Unknown 01/22/2024 2:25 AM CDT 01/22/2024 2:39 AM CDT Jason Walker MD LAB - BLOOD ORDERAB LES [facility] [address], [address] [place] [address], [place] [phone] * CT Abdomen Pelvis w/o Contrast (01/20/2024 8:46 AM CDT) Only the most recent of2 resultswithin the time period is included. Anatomical Region Laterality Modality Abdomen/Pelvis, SUBRAD CT MANUEL DY, UMP CT ABDOMEN PELVIS, RAD CT Computed Tomography 01/20/2024 8:46 AM CDT Impressions 01/20/2024 9:27 AM CDT IMPRESSION: 1. ??Decrease in the gas and fluid in the prostate as compared to the previous examination consistent with improving abscess. 2. ??No hydronephrosis in either kidney on examination today. Crandall catheter in good position and the bladder is decompressed. 3. ??Small amount of abdominal ascites. Narrative 01/20/2024 9:27 AM CDT EXAM: CT ABDOMEN AND PELVIS WITHOUT CONTRAST LOCATION: [facility] DATE: 01/20/2024 INDICATION: Following for hydronephrosis, air in prostate. COMPARISON: 01/16/2024. TECHNIQUE: CT scan of the abdomen and pelvis was performed without IV contrast. Multiplanar reformats were obtained. Dose reduction techniques were used. CONTRAST: None. FINDINGS: LOWER CHEST: Small bilateral pleural effusions with small amount of atelectasis in the lung bases. HEPATOBILIARY: Cirrhotic configuration of the liver. PANCREAS: Normal. SPLEEN: Normal. ADRENAL GLANDS: Normal. KIDNEYS/BLADDER: No hydronephrosis in either kidney on examination today. Crandall catheter in the bladder which is decompressed. BOWEL: The bowel is normal in caliber without evidence for obstruction. Colonic diverticulosis. Small amount of ascites in the abdomen and pelvis. LYMPH NODES: No abnormal adenopathy in the abdomen or pelvis. VASCULATURE: Atherosclerotic plaque in the aorta. PELVIC ORGANS: The gas and fluid collection in the prostate seen previously is decreased in size. The fluid component now measuring approximately 1.8 x 1.4 cm. The gas is almost completely resolved. MUSCULOSKELETAL: Normal. Procedure Note Ollie Ortiz MD - 01/20/2024 EXAM: CT ABDOMEN AND PELVIS WITHOUT CONTRAST LOCATION: [facility] DATE: 01/20/2024 INDICATION: Following for hydronephrosis, air in prostate. COMPARISON: 01/16/2024. TECHNIQUE: CT scan of the abdomen and pelvis was performed without IVcontrast. Multiplanar reformats were obtained. Dose reduction techniqueswere used. CONTRAST: None. FINDINGS: LOWER CHEST: Small bilateral pleural effusions with small amount ofatelectasis in the lung bases. HEPATOBILIARY: Cirrhotic configuration of the liver. PANCREAS: Normal. SPLEEN: Normal. ADRENAL GLANDS: Normal. KIDNEYS/BLADDER: No hydronephrosis in either kidney on examination today.Crandall catheter in the bladder which is decompressed. BOWEL: The bowel is normal in caliber without evidence for obstruction.Colonic diverticulosis. Small amount of ascites in the abdomen andpelvis. LYMPH NODES: No abnormal adenopathy in the abdomen or pelvis. VASCULATURE: Atherosclerotic plaque in the aorta. PELVIC ORGANS: The gas and fluid collection in the prostate seenpreviously is decreased in size. The fluid component now measuringapproximately 1.8 x 1.4 cm. The gas is almost completely resolved. MUSCULOSKELETAL: Normal. IMPRESSION: 1. Decrease in the gas and fluid in the prostate as compared to theprevious examination consistent with improving abscess. 2. No hydronephrosis in either kidney on examination today. Foleycatheter in good position and the bladder is decompressed. 3. Small amount of abdominal ascites. Barby Urbano PA-C IMG CT ORDERAB LES * XR Chest Port 1 View (01/19/2024 2:12 PM CDT) Anatomical Region Laterality Modality Chest Digital Radiogra phy Impressions 01/19/2024 2:37 PM CDT IMPRESSION: Right PICC tip at the mid SVC approximately 6 cm from the cavoatrial junction. Right lung and visualized left lung proctor are clear. Grossly unremarkable cardiomediastinal silhouette. SVITLANA ASCENCIO MD SYSTEM ID: ??[id number] Narrative 01/19/2024 2:37 PM CDT CHEST ONE VIEW ??01/19/2024 2:12 PM HISTORY: RN placed PICC - verify tip placement. COMPARISON: None available. Procedure Note Svitlana Ascencio MD - 01/19/2024 CHEST ONE VIEW 01/19/2024 2:12 PM HISTORY: RN placed PICC - verify tip placement. COMPARISON: None available. IMPRESSION: Right PICC tip at the mid SVC approximately 6 cm from the cavoatrial junction. Right lung and visualized left lung proctor are clear. Grossly unremarkable cardiomediastinal silhouette. SVITLANA ASCENCIO MD SYSTEM ID: [id number] Judy Banegas PA-C IMG DIAGNOSTIC IM AGING ORDERABLES * Single Lumen PICC Placement (01/19/2024 2:11 PM CDT) Narrative Esther Mccabe RN - 01/19/2024 2:11 PM CDT Esther Mccabe RN ? 01/19/2024 ??2:16 PM [facility] Single Lumen PICC Placement Date/Time: 01/19/2024 2:11 PM Performed by: Esther Mccabe RN Authorized by: Judy Banegas PA-C ??Indications: vascular access UNIVERSAL PROTOCOL Site Marked: Yes Prior Images Obtained and Reviewed: ??Yes Required items: Required blood products, implants, devices and special equipment available ?? Patient identity confirmed: ??Verbally with patient, hospital-assigned identification number and arm band NA - No sedation, light sedation, or local anesthesia Confirmation Checklist: ??Patient's identity using two indicators, procedure was appropriate and matched the consent or emergent situation, correct equipment/implants were available and relevant allergies Time out: Immediately prior to the procedure a time out was called ?? [place] Protocol: the Joint Commission [place] Protocol was followed ?? Preparation: Patient was prepped and draped in usual sterile fashion ?? ESBL (mL): ??2 ANESTHESIA Local Anesthetic: ??Lidocaine 1% without epinephrine Anesthetic Total (mL): ??1 SEDATION Patient Sedated: No ?? Preparation: skin prepped with ChloraPrep Skin prep agent: skin prep agent completely dried prior to procedure Sterile barriers: maximum sterile barriers were used: cap, mask, sterile gown, sterile gloves, and large sterile sheet Hand hygiene: hand hygiene performed prior to central venous catheter insertion Type of line used: PICC Catheter type: single lumen Lumen type: power PICC Catheter size: 4 Fr Brand: Bard Placement method: ultrasound and MST Number of attempts: 1 Difficulty threading catheter: no Successful placement: yes Orientation: right Location: basilic vein Tip Location: Other (see comment) (chest x-ray pending) Arm circumference: adults 10 cm Extremity circumference: 37 Visible catheter length: 6 Total catheter length: 50 Dressing and securement: occlusive dressing applied, sterile dressing applied and gauze Post procedure assessment: blood return through all ports and placement verified by x-ray PROCEDURE Patient Tolerance: ??Patient tolerated the procedure well with no immediate complications Picc placed without difficulty/chest x-ray pending placement Disposal: sharps and needle count correct at the end of procedure, needles and guidewire disposed in sharps container Judy Banegas PA-C PROCEDURE/MINOR S URGICAL ORDERABLES * (ABNORMAL) CBC with platelets (01/19/2024 7:26 AM CDT) Only the most recent of3 resultswithin the time period is included. WBC Count 6.0 4.0 - 11.0 10e3/uL 01/19/2024 7:56 AM CDT LABORATORY RBC Count 2.76(L) 4.40 - 5.90 10e6/uL 01/19/2024 7:56 AM CDT LABORATORY Hemoglobin 7.5(L) 13.3 - 17.7 g/dL 01/19/2024 7:56 AM CDT LABORATORY Hematocrit 22.7(L) 40.0 - 53.0 % 01/19/2024 7:56 AM CDT LABORATORY MCV 82 78 - 100 fL 01/19/2024 7:56 AM CDT LABORATORY MCH 27.2 26.5 - 33.0 pg 01/19/2024 7:56 AM CDT LABORATORY MCHC 33.0 31.5 - 36.5 g/dL 01/19/2024 7:56 AM CDT LABORATORY RDW 15.8(H) 10.0 - 15.0 % 01/19/2024 7:56 AM CDT LABORATORY Platelet Count 135(L) 150 - 450 10e3/uL 01/19/2024 7:56 AM CDT LABORATORY Blood STRUCTURE OF RIGHT UPPER LIMB / Unknown Venipuncture / Unknown 01/19/2024 7:26 AM CDT 01/19/2024 7:51 AM CDT Susan Moody MD LAB - BLOOD ORDERABL ES LABORATORY [facility] [address] 1[address], [address] [place] [address], [facility] [phone] * (ABNORMAL) Glucose by meter (01/17/2024 8:16 PM CDT) Only the most recent of5 resultswithin the time period is included. [facility] GLUCOSE BY METER POCT 123(H) 70 - 99 mg/dL 01/17/2024 8:23 PM CDT LABORATORY POC Blood, Capillary BLOOD SPECIMEN / Unknown 01/17/2024 8:16 PM CDT 01/17/2024 8:23 PM CDT Jason Walker MD LAB - BEAKER POCT Performing Organization Address City/[facility]/ZIP Co de Phone Number LABORATORY POC [facility] 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 No evidence of immediate hardware complication. Expected soft tissue edema and scattered foci of gas. Surgical drain in place. Narrative 01/17/2024 8:07 PM CDT EXAM: XR KNEE PORT RIGHT 1/2 VIEWS LOCATION: [facility] DATE: 01/17/2024 INDICATION: Post Op Total Knee COMPARISON: None. Procedure Note Alfa Patel DO - 01/17/2024 EXAM: XR KNEE PORT RIGHT 1/2 VIEWS LOCATION: [facility] DATE: 01/17/2024 INDICATION: Post Op Total Knee COMPARISON: None. IMPRESSION: Postoperative changes of a revision right total kneearthroplasty with antibiotic spacer placement. No evidence of immediatehardware complication. Expected soft tissue edema and scattered foci ofgas. Surgical drain in place. [place] Jackson PA-C [facility] DIAGNOSTIC IMAGI NG ORDERABLES * (ABNORMAL) Synovial fluid Aerobic Bacterial Culture Routine (01/17/2024 6:42 PM CDT) Only the most recent of6 resultswithin the time period is included. Culture 1+ Staphylococcus aureus(A) ALEXANDRE 01/22/2024 11:35 AM CDT [facility] Synovial fluid STRUCTURE OF RIGHT KNEE REGION / Unknown Non-blood Collection / Unknown 01/17/2024 6:42 PM CDT 01/17/2024 7:18 PM CDT Narrative Organism Antibiotic Method Susceptibility Staphylococcus aureus Oxacillin ALEXANDRE <=0.25 ug/mL: Susceptible Comment:Oxacillin desai sceptible isolates are susceptible to cephalosporins (example: cefazolin and cephalexin) and beta lactam combination agents. Oxacillin resistant isolates are resistant to these agents. Staphylococcus aureus Gentamicin ALEXANDRE <=0.5 ug/mL: Susceptible Staphylococcus aureus Erythromycin ALEXANDRE >=8 ug/mL: Resistant Staphylococcus aureus Clindamycin ALEXANDRE Resistant Comment:This isolate is presumed to be clindamycin resistant based on detection of inducible clindamycin resistance. Erythromycin and clindamycin are resistant; therefore, they are not recommended for use. Staphylococcus aureus Vancomycin ALEXANDRE 1 ug/mL: Susceptible Staphylococcus aureus Daptomycin ALEXANDRE 0.5 ug/mL: Susceptible Staphylococcus aureus Tetracycline ALEXANDRE <=1 ug/mL: Susceptible Staphylococcus aureus Doxycycline ALEXANDRE <=0.5 ug/mL: Susceptible Staphylococcus aureus Trimethoprim/Sulfa methoxazol e ALEXANDRE <=0.5/9.5 ug/mL: Susceptible Caleb Garcia MD LAB - MICRO GENE RAL ORDERABLES [facility]AT[facility] Inf. Diseases Diag. Lab [address] [facility], [address] [place] [address], [facility] * Anaerobic Bacterial Culture Routine (01/17/2024 6:42 PM CDT) Only the most recent of6 resultswithin the time period is included. Culture No anaerobic organisms isolated ALEXANDRE 01/31/2024 8:08 AM CDT [facility] Synovial fluid STRUCTURE OF RIGHT KNEE REGION / Unknown Non-blood Collection / Unknown 01/17/2024 6:42 PM CDT 01/17/2024 7:18 PM CDT Caleb Garcia MD LAB - MICRO GENE RAL ORDERABLES [facility] Inf. Diseases Diag. Lab [address] [facility], [address] [place] [address] * ANE AIRWAY ETT PERFORMABLE (01/17/2024 5:07 PM CDT) Narrative Machelle Davidson - 01/17/2024 5:07 PM CDT Machelle Davidson ? 01/17/2024 ??5:18 PM Airway ? Patient location during procedure: OR ? Procedure Start/Stop Times: 01/17/2024 5:07 PM Staff - ? Anesthesiologist: ??Quintin Carbajal MD ? GATE KEEPER: Machelle Davidson ? Performed By: GATE KEEPER Consent for Airway ? Urgency: elective Indications and Patient Condition ? Indications for airway management: millie-procedural ? Induction type:intravenous ? Mask difficulty assessment: 2 - vent by mask + OA or adjuvant +/- NMBA Final Airway Details ? Final airway type: endotracheal airway ? Successful airway: ETT - single and Oral Endotracheal Airway Details ? ETT size (mm): 8.0 ? Cuffed: yes ? Successful intubation technique: video laryngoscopy ? VL Blade Size: Field 4 ? Grade View of Cords: 1 ? Adjucts: stylet ? Position: Right ? Measured from: gums/teeth ? Secured at (cm): 22 ? Bite block used: None Post intubation assessment ? Placement verified by: capnometry, equal breath sounds and chest rise ? Number of attempts at approach: 1 ? Number of other approaches attempted: 0 ? Secured with: tape ? Ease of procedure: easy ? Dentition: Intact and Unchanged Medication(s) Administered Medication Administration Time: 01/17/2024 5:07 PM Quintin Carbajal MD MD ANESTHESIA * (ABNORMAL) UA Macroscopic with reflex to Microscopic and Culture (01/16/2024 4:40 PM CDT) Color Urine Red(A) Colorless, Straw, Light Yellow, Yellow 01/16/2024 4:57 PM CDT LABORATORY Appearance Urine Cloudy(A) Clear 01/16/20 24 4:57 PM CDT LABORATORY Glucose Urine Negative Negative mg/dL 01/16/2024 4:57 PM CDT LABORATORY Bilirubin Urine Negative Negative 4:57 PM CDT LABORATORY Ketones Urine Negative Negative mg/dL 01/16/2024 4:57 PM CDT LABORATORY Specific [place] Urine 1.008 1.003 - 1.035 01/16/2024 4:57 PM CDT LABORATORY Blood Urine Large(A) Negative 01/16/2024 4:57 PM CDT LABORATORY pH Urine 7.0 5.0 - 7.0 01/16/2024 4:57 PM CDT LABORATORY Protein Albumin Urine 200(A) Negative mg/dL 01/16/2024 4:57 PM CDT LABORATORY Urobilinogen Urine Normal Normal, 2.0 mg/dL 01/16/2024 4:57 PM CDT LABORATORY Nitrite Urine Negative Negative 01/16/2024 4:57 PM CDT LABORATORY Leukocyte Esterase Urine Large(A) Negative 01/16/2024 4:57 PM CDT LABORATORY Bacteria Urine Few(A) None Seen /HPF 01/16/2024 4:57 PM CDT LABORATORY RBC Urine >182(H) <=2 /HPF 01/16/2024 4:57 PM CDT LABORATORY WBC Urine >182(H) <=5 /HPF 01/16/2024 4:57 PM CDT LABORATORY Urine URINE SPECIMEN OBTAINED VIA INDWELLING URINARY CATHETER / Unknown Non-blood Collection / Unknown 01/16/2024 4:40 PM CDT 01/16/2024 4:47 PM CDT Narrative LABORATORY - 01/16/2024 4:57 PM CDT Urine Culture ordered based on laboratory criteria Barby Urbano PA-C LAB - URINE OR DERABLES LABORATORY [facility] [address], [address] [place] [address], [facility] * Urine Culture (01/16/2024 4:40 PM CDT) Culture No Growth ALEXANDRE 01/18/2024 7:16 AM CDT [facility] Urine URINE SPECIMEN OBTAINED VIA [employer]WELLING URINARY CATHETER / Unknown Non-blood Collection / Unknown 01/16/2024 4:40 PM CDT 01/16/2024 4:56 PM CDT Barby Urbano PA-C LAB - MICRO GE NERAL ORDERABLES [facility] Inf. Diseases Diag. Lab [address] [facility], [address] [address] * Blood Culture Hand, Left (01/16/2024 2:09 PM CDT) Only the most recent of2 resultswithin the time period is included. Culture No Growth 01/21/2024 5:31 PM CDT [facility] Blood STRUCTURE OF LEFT HAND / Unknown Venipuncture / Unknown 01/16/2024 2:09 PM CDT 01/16/2024 2:21 PM CDT Narrative [facility] - 01/21/2024 5:31 PM CDT Only an Aerobic Blood Culture Bottle was collected, interpret results with caution. Urbano Johnson MD LAB - MICRO GENERAL ORDERABLES [facility] Inf. Diseases Diag. Lab [address] [facility], [address] [place], [place] [id number] * MRSA MSSA PCR, Nasal Swab (01/16/2024 10:37 AM CDT) MRSA Target DNA Negative Negative 01/16/2024 2:32 PM CDT [facility] SA Target DNA Positive 01/16/2024 2:32 PM CDT [facility] Swab BOTH ANTERIOR NARES / Unknown Non-blood Collection / Unknown 01/16/2024 10:37 AM CDT 01/16/2024 11:10 AM CDT Narrative [facility] - 01/16/2024 2:32 PM CDT [employer]?? Xpert SA Nasal Complete assay performed in the [facility]?? Dx System is a qualitative in vitro diagnostic test designed for rapid detection of Staphylococcus aureus (SA) and methicillin-resistant Staphylococcus aureus (MRSA) from nasal swabs in patients at risk for nasal colonization. The test utilizes automated real- time polymerase chain reaction (PCR) to detect MRSA/SA DNA. The Xpert SA Nasal Complete assay is intended to aid in the prevention and control of MRSA/SA infections in healthcare settings. The assay is not intended to diagnose, guide or monitor treatment for MRSA/SA infections, or provide results of susceptibility to methicillin. A negative result does not preclude MRSA/SA nasal colonization. Stacy Bland PA-C LAB - MICRO GEN ERAL ORDERABLES [facility] Inf. Diseases Diag. Lab [facility], [address] * Adult Type and Screen (01/16/2024 8:45 AM CDT) ABO/RH(D) A POS 01/16/2024 8:19 AM CDT BLOOD BANK Antibody Screen Negative Negative 01/16/2024 8:19 AM CDT BLOOD BANK SPECIMEN EXPIRATION DATE [id number] 01/16/2024 8:19 AM CDT BLOOD BANK Blood STRUCTURE OF RIGHT UPPER LIMB / Unknown Venipuncture / Unknown 01/16/2024 8:45 AM CDT 01/16/2024 8:57 AM CDT Stacy Bland PA-C LAB - BLOOD BAN K TEST ORDER Performing Organization Address City/[facility]/ZIP Co de Phone Number BLOOD BANK [address] [place] [address] * (ABNORMAL) Erythrocyte sedimentation rate auto (01/16/2024 8:45 AM CDT) Erythrocyte Sedimentation Rate 79(H) 0 - 20 mm/hr 01/16/2024 9:10 AM CDT LABORATORY Blood STRUCTURE OF RIGHT UPPER LIMB / Unknown Venipuncture / Unknown 01/16/2024 8:45 AM CDT 01/16/2024 8:57 AM CDT Stacy Bland PA-C LAB - BLOOD ORD ERABLES Performing Organization Address [facility] Co de Phone Number LABORATORY [facility] Lab [address] 1[address] floor, [address] [place] [address], [facility] * EKG 12-lead, tracing only (01/16/2024 7:10 AM CDT) Systolic Blood Pressure mmHg RADIOLOGY RESULTS Diastolic Blood Pressure mmHg RADIOLOGY RESULTS Ventricular Rate 92 BPM RAD IOLOGY RESULTS Atrial Rate 92 BPM RADIOLOG Y RESULTS MD Interval 164 ms RADIOLOG Y RESULTS QRS Duration 112 ms RADIOLO GY RESULTS QT 388 ms RADIOLOGY RESULTS QTc 479 ms RADIOLOGY RESULTS P [place] 72 degrees RADIOLOGY RESULTS R AXIS 51 degrees RADIOLOGY RESULTS T [place] 58 degrees RADIOLOGY RESULTS Interpretation ECG Sinus rhythm Normal ECG No previous ECGs available Confirmed by MD SAURABH, YOSVANY ([id number]) on 01/16/2024 4:56:17 PM RADIOLOGY RESULTS 01/16/2024 7:10 AM CDT 01/16/2024 4:56 PM CDT Karlie Rosenthal MD ECG ORDERABLES Performing Organization Address City/[facility]/ZIP Co de Phone Number RADIOLOGY RESULTS from Last 3 Months Advance Directives For more information, please contact: [phone] * Full Code (Latest Code Status on File) Date Activated Date Inactivated Comments 01/23/2024 8:19 AM Question Answer Comments Code status determined by: Discussion with junior lorenzo/ legal decision maker * Full Code Date Activated Date Inactivated Comments 01/17/2024 9:17 PM 01/23/2024 8:19 AM All basic and advanced life-sustaining interventions are performed as appropriate Question Answer Comments Code status determined by: Unable to dis cuss and no AD/POLST on file; continue PREVIOUSLY ORDERED code status * Full Code Date Activated Date Inactivated Comments 01/15/2024 9:48 PM 01/17/2024 9:17 PM All basic and advanced life-sustaining interventions are performed as appropriate Question Answer Comments Code status determined by: Discussion with junior lorenzo/ legal decision maker Care Teams Emergency Doctor Relationship Specialty Start Date End Date Mary Ruggiero PA-C [address] [place] [address] PCP - General 01/16/24
--- OUTSIDE RECORDS SUMMARY | 2024-02-12 18:00 | XMS_ITS | Referral Summary ---
Author Organization [facility] Address [address] [place] [address] Care Team Providers Care Undercutter Operator Name Role Phone Elsewhere, Pcp Primary Care Provider Unavailabl e Source Comments Patient records contain information from all sites at [facility]. For routine questions regarding patient records, call [phone] during business hours, M-F 8:00 AM - 5:00 PM Central Time. Record requests for emergency care only can be directed to [phone] at any time.[facility] Encounters Date Type Department Care Team Description 02/06/2024 Clinical Communication Department of Urology in [place], [place] [address] [place] [address] Shara Aldrich APRN, C.N.P., D.N.P. Appt Request (Catheter Removal) 01/29/2024 7:00 AM CDT Virtual Visit Department of Urology in [place], [place] [address] [place] [address] Shara Aldrich APRN C.N.P., D.N.P. Defect Ureteral Filling (Primary Dx) 12/27/2023 Clinical Communication Department of Urology in [place], [place] [address] [place] [phone] Shara Aldrich APRN C.N.P., D.N.P. 12/27/2023 Clinical Communication Department of Urology in [place], [place] [address] [place] [address] Otoniel Sandoval M.D. 12/27/2023 2:30 PM CDT Virtual Visit Department of Radiology, [place], in [place], [place] [address] [place] [address] Janice Salmon APRN, C.NSarabjit., M.S.N. Primary Malignant Neoplasm Of Prostate (HCC) (Primary Dx) 12/26/2023 12:27 PM CDT - 12/26/2023 12:41 PM CDT Hospital Encounter Department of Laboratory Medicine and Pathology, [place], [place] [address] [place] [address] Janice Salmon APRN, C.N.P., M.S.N. Primary Malignant Neoplasm Of Prostate (HCC) Discharge Disposition: Home or Self Care 12/26/2023 12:42 PM CDT - 12/26/2023 11:59 PM CDT Hospital Encounter Department of Radiology, [place], [place] [address] [place] [address] Janice Salmon APRN, C.N.P., M.S.N. Primary Malignant Neoplasm Of Prostate (HCC) Discharge Disposition: Home or Self Care from Last 3 Months Allergies Active Allergy Reactions Criticality Noted Date Comments Metformin GI intolerance 07/30/2021 Medications Medication Sig Dispensed Refills Start Date End Date Status atorvastatin (LIPITOR) 10 mg tablet Take 1 tablet by mouth at bedtime. 11/16/2015 Active lisinopril-hydroCHL OROthiazide (for_PRINZIDE,ZESTO RETIC) 20-12.5 mg per tablet 12/13/2017 Active MULTIVITAMIN ORAL Take 1 tablet by mouth. 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6 oz pur e alcohol) hasn't for months [facility] Utilities Answer Date Recorded In the past 12 months has th e electric, gas, oil, or water company threatened to shut off services in your [...] 07/18/2022 How often do you attend chur or advent services? Never 07/18/2022 Do you belong to any clubs o r organizations such as episcopalian groups, unions, fraternal or athletic groups, or [...] when you are drinking? 1 or 2 Q3: How often do you have si x or more drinks on one occasion? Less than monthly 07/18/2022 Overall Financial Resource Strain (CARDIA) Answe r Date Recorded How hard is it for you to pa y for the very basics like food, housing, medical care, and heating? Not very hard 07/18/2022 [facility] [place] of Occupat ional Health - Occupational Stress Questionnaire Answer Date Recorded [...] your living situation today? I have a [facility] [place] place to live 09/21/2023 Education Answer Date [...] CDT Appointment Department of Laboratory Medicine in [address] [phone] Janice Salmon APRN, C.N.P., M.S.N. [address] [place] [phone] Medical Devices Implanted Type Area Crackling Press Operator Device Identifier Shelf Expiration Date Model / Serial / Lot Knee Implant Knee Implant Right: Knee AxonFighters Bladder Stimulator 4101-02/22/2023 Implanted:Qty: 1 on 02/22/2023 by Leatha Arora D.O. at [facility] Sacral Nerve Stimulator N/A: Pelvis [employer] 11/18/2023 4101 / [id number] / Description:CompStak Sacral S timulator Model# 4101 with lead Model# 1201 MRI conditional at 1.5T. Physicist coverage may be needed. Patient must bring remote to MRI appointment. See rod buster helper scanning guidelines. Kristian Ray 12/25/23 [email or web address] Axonics Lead 1201 Implanted:Qty: 1 on 02/22/2023 by Leatha Arora D.O. at [facility] Stimulator Other N/A: Pelvis Axonics [employer] Inc [id number] 07/28/2025 1201 / [id number] / Description:Axonics Sacral S timulator Model# 4101 with lead Model# 1201 MRI conditional at 1.5T. Physicist coverage may be needed. Patient must bring remote to MRI appointment. See rod buster helper scanning guidelines. Kristian Michaelnicole 12/25/23 [email or web address] 1201 reference number Explanted Type Area Crackling Press Operator Device Identifier Shelf Expiration Date Model / Serial / Lot Axonics Trial Implanted:Qt y: 1 on 02/09/2023 by Leatha Arora D.O. at [facility]/[employer] Explanted: (Quantity not on file) Stimulator Other N/A: Sacrum Axonics [employer]X [employer]., [employer] [id number] 08/29/2025 1901 / / [id number] Axonics Trial Implanted:Qt y: 1 on 02/09/2023 by [facility] D.O. at [facility] Explanted: (Quantity not on file) Stimulator Other N/A: Sacrum Axonics [employer] Inc [id number] 04/17/2025 1701 / / [id number] Procedures Procedure Name Priority Date/Time Associated [...] CONTRAST CLINICAL HISTORY: History of prostate cancer, [place] score: 7. Status post external beam radiation [...] CONTRAST CLINICAL HISTORY: History of prostate cancer, [place] score: 7. Statuspost external beam radiation therapy followed by percutaneous cryoablationof the right posterior peripheral zone on 08/25/2022. Most recent PSA <0.10 ng/mL. COMPARISON: Prostate MRI 06/22/2023 and 12/20/2022, and CT [id number]/11/2023. PROSTATE: - Volume: 39 cc (PSA density [...] MRI of the prostate was performedat 1.5 [place] with a surface coil. High resolution T2WI, [...] osseous lesion. 5. Healing sacral insufficiencies fractures. Christopher Teresa APRNNNoé, M.S.N. [facility] [place] PROCEDURES * PSA (Prostate-Specific Antigen), Diagnostic [...] CDT 12/26/2023 1:15 PM CDT Christie Teresa APRN.N.Ruben, M.S.N. LAB BLOOD ADD-ON [facility] [address] [place] [address], [facility] DTL [facility] [address] [place] [address] * Hemoglobin A1c (01/12/2023 8:25 AM CDT) Hemoglobin A1c, B 5.4 4.2 - 5.6 % 01/12/2023 11:51 AM CDT OWAT Blood (Blood, Venous) 01/12/2023 8:25 AM CDT 01/12/2023 11:09 AM CDT Leatha Arora D.O. LAB BLOOD ADD-ON [facility] [address] [place] [address], [place] [facility] in [place] [address] [place] [address] from Last 3 Months or Most Recently Relevant to Health Maintenance Advance Directives For more information, please contact: [phone] * Full Code (Latest Code Status on File) Date Activated Date Inactivated Comments 02/09/2023 6:53 AM 02/09/2023 2:09 PM Question Answer Comments Full Code: Discussed Care Teams Undercutter Operator Relationship Specialty Start Date End Date Elsewhere, Pcp PCP - General Internal Medicine 01/17/23
--- OUTSIDE RECORDS SUMMARY | 2024-02-12 18:00 | XMS_ITS | Encounter Summary ---
Author Organization [facility] Address [address] [place] [address] Care Team Providers Care Direct Mail Coordinator Name Role Phone Elsewhere, Pcp Primary Care Provider Unavailabl e Encounter Details Date Type Department Care Team (Late st Contact Info) Description 10/12/2023 Clinical Communication Department of Radiation Oncology in [place], [place] [address] [place] [phone] Lauri Mathew M.D. [address] [place] [phone] Social History Tobacco Use Types Packs/Day Years Used Date Smoking Tobacco: Former Cigarettes Q uit: 05/19/2006 Passive Smoke Exposure: Never Smokeless Tobacco: Never Alcohol Use Standard Drinks/Week Comments Not Currently 3 (1 standard drink = 0.6 oz pur e alcohol) hasn't for months [facility] Utilities Answer Date Recorded In the past 12 months has e [employer], gas, oil, or water [employer] threatened to shut off services in your [...] How often do you attend chur or islam services? Never 07/18/2022 Do you belong to any clubs o r organizations such as voodoo groups, unions, fraternal or athletic groups, or [...] care, and heating? Not very hard 07/18/2022 [facility] of Occupat ional Health - Occupational Stress [...] money to buy more. Never true 09/21/19 24 Within the past 12 months, t he [...] your living situation today? I have a [facility] place to live 09/21/2023 Education Answer Date Recorded What is the highest level of school you have completed or the highest degree you have received? 12th grade 07/18/2022 Sex and Gender Information Value Date Recorded Sex Assigned at Male 12/18/2017 8:54 AM CDT Gender Identity Male 12/18/2017 8:54 AM CDT Sexual Orientation Straight 12/18/2017 8: 54 AM CDT documented as of this encounter Plan of Treatment Upcoming Encounters Date Type Department Care Team (Late st Contact Info) Description 03/29/2024 12:10 PM CDT Appointment Department of Laboratory Medicine in [address] [phone] Janice Salmon APRN, C.N.P., M.S.N. [address] [place] [address] documented as of this encounter Visit Diagnoses Not on filedocumented in this encounter Additional Health Concerns Assessment Noted Time PHQ-9 Depression Total Score: 3 03/13/20 14 8:24 AM CDT documented as of this encounter Care Teams Direct Mail Coordinator Relationship Specialty Start Date End Date Elsewhere, Pcp PCP - General Internal Medicine 01/17/23 documented as of this encounter
--- OUTSIDE RECORDS SUMMARY | 2024-02-12 18:00 | XMS_ITS | Encounter Summary ---
Author Organization [facility] Address [address] [place] [address] Care Team Providers Care Environmental Health Manager Name Role Phone Elsewhere, Pcp Primary Care Provider Unavailabl e Encounter Details Date Type Department Care Team (Late st Contact Info) Description 12/27/2023 Clinical Communication Department of Urology in [place], [place] [address] [place] [address] Otoniel Sandoval M.D. [address] [place] [phone] Social History Tobacco Use Types Packs/Day Years Used Date Smoking Tobacco: Former Cigarettes Q uit: 05/19/2006 Passive Smoke Exposure: Never Smokeless Tobacco: Never Alcohol Use Standard Drinks/Week Comments Not Currently 3 (1 standard drink = 0.6 oz pur e alcohol) hasn't for months [facility] Utilities Answer Date Recorded In the past 12 months has [facility] [employer], gas, oil, or water [email or web address] threatened to shut off services in your [...] often do you attend chur ch or orthodox services? Never 07/18/2022 Do you belong to any clubs o r organizations such as yazidi groups, unions, fraternal or athletic groups, or [...] care, and heating? Not very hard 07/18/2022 [facility] of Occupat ionpa Health - Occupational Stress Questionnaire Answer Date [...] your living situation today? I have a [facility] place to live 09/21/2023 Education [...] CDT Appointment Department of Laboratory Medicine in [address] [phone] Janice Salmon APRN, C.N.P., M.S.N. [address] [place] [address] documented as of this encounter Visit Diagnoses Not on filedocumented in this encounter Additional Health Concerns Assessment Noted Time PHQ-9 Depression Total Score: 3 03/13/20 14 8:24 AM CDT documented as of this encounter Care Teams Environmental Health Manager Relationship Specialty Start Date End Date Elsewhere, Pcp PCP - General Internal Medicine 01/17/23 documented as of this encounter
--- OUTSIDE RECORDS SUMMARY | 2024-02-12 18:00 | XMS_ITS ---
Author Organization [facility] Address [address] [place] [address] Care Team Providers Care Paving Contractor Name Role Phone Unavailable Unavailable Unavailable Surgery Details Not on file Complications Check Surgery Details section. Procedure Estimated Blood Loss Check Surgery Details section. Procedure Findings Check Surgery Details section. Procedure Specimens Taken Check Surgery Details section.
--- OUTSIDE RECORDS SUMMARY | 2024-02-12 18:00 | XMS_ITS | Encounter Summary ---
Author Organization [facility] Address [address] [place] [address] Care Team Providers Care Range Ecologist Name Role Phone Elsewhere, Pcp Primary Care Provider Unavailabl e Encounter Details Date Type Department Care Team (Latest Contact Info) Description 12/26/2023 12:27 PM CDT - 12/26/2023 12:41 PM CDT Hospital Encounter Department of Laboratory Medicine and Pathology, [facility], in [place], [place] [address] [place] [phone] Janice Salmon APRN, C.N.P., M.S.N. [address] [place] [phone] Primary Malignant Neoplasm Of Prostate (HCC) Discharge Disposition: Home or Self Care Social History Tobacco Use Types Packs/Day Years Used Date Smoking Tobacco: Former Cigarettes Q uit: 05/19/2006 Passive Smoke Exposure: Never Smokeless Tobacco: Never Alcohol Use Standard Drinks/Week Comments Not Currently 3 (1 standard drink = 0.6 oz pur e alcohol) hasn't for months [facility] Utilities Answer Date Recorded In the past 12 months has e electric, gas, oil, or water company [...] How often do you attend chur or mandaen services? Never 07/18/2022 Do you belong to any clubs o r organizations such as buddhist groups, unions, fraternal or athletic groups, or [...] and heating? Not very hard 07/18/2022 [facility] of Occupat ional Health - Occupational Stress [...] your living situation today? I have a [facility] place to live 09/21/2023 Education Answer [...] AM CDT documented as of this encounter Medications at Time of Discharge Medication Sig Dispensed Refills Start Date End Date albuterol 90 mcg/actuation inhaler Inhale 1-2 puffs every 4 (four) hours as needed. 10/02/2023 alendronate (FOSAMAX) 70 mg tablet Take by mouth over 168 hr. 10/14/2022 atorvastatin (LIPITOR) 10 mg tablet Take 1 tablet by mouth at bedtime. 11/16/2015 calcitonin, salmon, (MIACALCIN) 200 unit/actuation nasal spray Administer into nostril(s). 01/12/2023 celecoxib (CeleBREX) 200 mg capsule Take 200 mg by mouth daily. cholecalciferol (VITAMIN D3) 25 mcg (1,000 Unit) capsule 2022 ciprofloxacin (CIPRO) 500 mg tablet 01/12/2023 clobetasoL (TEMOVATE) 0.05 % ointment APPLY TOPICALLY TO AFFECTED AREA(S) 2 TIMES DAILY. 04/25/2022 dapsone 25 mg tablet Take 25 mg by mouth once a week. DULoxetine (CYMBALTA) [address] capsule Take 30 mg by mouth daily. 07/15/2023 DULoxetine (CYMBALTA) [address] capsule Take 60 mg by mouth daily. 08/15/2023 furosemide (LASIX) 40 mg tablet Take 40 mg by mouth as needed. 07/03/2023 HYDROcodone-acetamino phen (NORCO) 10-325 mg per tablet Take by mouth every 3 (three) hours. hydrOXYzine (ATARAX) 25 mg tablet Take by mouth daily. ibuprofen (MOTRIN) 800 mg tablet Take 800 mg by mouth as needed. lisinopril-hydroCHLOR Othiazide (for_PRINZIDE,ZESTORE TIC) 20-12.5 mg per tablet 12/13/2017 mirtazapine (REMERON) 15 mg tablet Take by mouth daily. 10/14/2022 mirtazapine (REMERON) 30 mg tablet Take 30 mg by mouth at bedtime. 45 mg 08/27/2023 miscellaneous medical supply [facility] CPAP machine for home use at pressure: 8 CM H20 , Heated humidifier x 1, Humidifier chamber x 1, Full face mask with cushion x 1, Heated tubing x 1, Headgear x 1, Filters: Disposable x 1pk & Reusable x 1pk, Length of Need: 99 months, Frequency of use: Daily 01/13/2017 MULTIVITAMIN ORAL Take 1 tablet by mouth. oxyCODONE (ROXICODONE) 10 mg IR tablet Take 1 tablet by mouth as needed. 07/30/2023 potassium chloride (K-TAB) 20 mEq CR tablet Take 20 mEq by mouth daily. 09/15/2022 predniSONE (DELTASONE) 20 mg tablet as directed. 10/02/2023 pregabalin (LYRICA) 150 mg capsule Take 150 mg by mouth 2 (two) times a day. 10/02/2023 pregabalin (LYRICA) 75 mg capsule TAKE 1 TO 2 CAPSULE BY MOUTH TWICE DAILY 01/03/2023 tamsulosin (FLOMAX) 0.4 mg 24 hr capsule Take 2 capsules (0.8 mg total) by mouth daily. 60 capsule 3 09/20/2021 tiZANidine (ZANAFLEX) 4 mg tablet Take 4 mg by mouth as needed for muscle spasms. 09/26/2023 vitamin E 450 mg (1,000 Unit) capsule Take 1 capsule (450 mg total) by mouth daily. 30 capsule 11 05/16/2022 trospium (SANCTURA XR) 60 mg 24 hr capsule Take 1 capsule (60 mg total) by mouth every morning before breakfast. 30 capsule 11 01/11/2023 01/11/2024 documented as of this encounter Plan of Treatment Upcoming Encounters Date Type Department Care Team (Late st Contact Info) Description 03/29/2024 12:10 PM CDT Appointment Department of Laboratory Medicine in [address] [phone] Janice Salmon APRN, C.N.P., M.S.N. [address] [place] [phone] documented as of this encounter Procedures Procedure Name Priority Date/Time Associated Diagnosis Comments PROSTATE-SPECIFIC AG (PSA) DIAGNOSTIC, S Routine 12/26/2023 12:36 PM CDT Primary Malignant Neoplasm Of Prostate (HCC) documented in this encounter Results * PSA (Prostate-Specific Antigen), Diagnostic (12/26/2023 12:36 PM CDT) Prostate-Specific Ag <0.10 <=4.5 ng/mL 12/26/2023 1:48 PM CDT DTL Comment: ----ADDITIONAL INFORMATION---- The testing method is an electrochemiluminescence assay manufactured by [employer] and performed on the Modular or WorthPoint system. Values obtained with different assay methods or kits may be different and cannot be used interchangeably. Test results cannot be interpreted as absolute evidence for the presence or absence of malignant disease. Blood (Blood, Venous) 12/26/2023 12:36 PM CDT 12/26/2023 1:15 PM CDT Janice Salmon APRN, C.N.P., M.S.N. LAB BLOOD ADD-ON [facility] [address] [place] [address], [facility] [address] [place] [address] documented in this encounter Visit Diagnoses Diagnosis Primary Malignant Neoplasm Of Prostate (HCC) documented in this encounter Additional Health Concerns Assessment Noted Time PHQ-9 Depression Total Score: 3 03/13/20 14 8:24 AM CDT documented as of this encounter Care Teams Range Ecologist Relationship Specialty Start Date End Date Elsewhere, Pcp PCP - General Internal Medicine 01/17/23 documented as of this encounter
--- OUTSIDE RECORDS SUMMARY | 2024-02-12 18:00 | XMS_ITS | Encounter Summary ---
Author Organization [facility] Address [address] [place] [id number] Care Team Providers Care Leather Production Machine Operator Name Role Phone Elsewhere, Pcp Primary Care Provider Unavailabl e Encounter Details Date Type Department Care Team (Late st Contact Info) Description 12/27/2023 Clinical Communication Department of Urology in [place], [place] [address] [place] [phone] Shara Aldrich, FEI, C.N.P., D.N.P. [address] [place] [phone] Social History Tobacco Use Types Packs/Day Years Used Date Smoking Tobacco: Former Cigarettes Q uit: 05/19/2006 Passive Smoke Exposure: Never Smokeless Tobacco: Never Alcohol Use Standard Drinks/Week Comments Not Currently 3 (1 standard drink = 0.6 oz pur e alcohol) hasn't for months [facility] Utilities Answer Date Recorded In the past 12 months has [facility] [employer], gas, oil, or water [employer] threatened to shut off services in your [...] often do you attend chur ch or scientologist services? Never 07/18/2022 Do you belong to any clubs o r organizations such as sikhism groups, unions, fraternal or athletic groups, or [...] care, and heating? Not very hard 07/18/2022 [facility] - Occupational Stress [...] your living situation today? I have a [facility] place to live 09/21/2023 Education Answer [...] CDT Appointment Department of Laboratory Medicine in [address] [phone] Janice Salmon APRN, C.N.P., M.S.N. [address] [place] [phone] documented as of this encounter Visit Diagnoses Not on filedocumented in this encounter Additional Health Concerns Assessment Noted Time PHQ-9 Depression Total Score: 3 03/13/20 14 8:24 AM CDT documented as of this encounter Care Teams Leather Production Machine Operator Relationship Specialty Start Date End Date Elsewhere, Pcp PCP - General Internal Medicine 01/17/23 documented as of this encounter
--- OUTSIDE RECORDS SUMMARY | 2024-02-12 18:00 | XMS_ITS | Encounter Summary ---
Author Organization [facility] Address [address] [place] [address] Care Team Providers Care Shape Brick Molder Name Role Phone Elsewhere, Pcp Primary Care Provider Unavailabl e Reason for Referral * MRI/CAT/PET Scan (Routine) - Closed Specialty Diagnoses / Procedures Referred By Britt barber Referred To Contact Radiology Diagnoses Primary Malignant Neoplasm Of Prostate (HCC) Procedures MR Prostate without and with IV Contrast Janice Salmon APRN, C.NNoé, M.S.N. [address] [place] [phone] [facility] Referral ID Status Reason Start Date Expiration Date Visits Re quested Visits Authorized [id number] Closed 06/23/2023 06/22/2024 1 1 Reason for Visit * MRI/CAT/PET Scan (Routine) - Closed Specialty Diagnoses / Procedures Referred By Contac t Referred To Contact Radiology Diagnoses Primary Malignant Neoplasm Of Prostate (HCC) Procedures MR Prostate without and with IV Contrast Janice Salmon APRN, C.NNoé, M.S.N. [address] [place] [phone] [facility] Referral ID Status Reason Start Date Expiration Date Visits Re quested Visits Authorized [id number] Closed 06/23/2023 06/22/2024 1 1 Encounter Details Date Type Department Care Team (Latest Contact Info) Description 12/26/2023 12:42 PM CDT - 12/26/2023 11:59 PM CDT Hospital Encounter Department of Radiology, [facility], in [place], [place] [address] [place] [address] Janice Salmon APRN, C.N.P., M.S.N. [address] [place] [phone] Primary Malignant Neoplasm Of Prostate (HCC) Discharge Disposition: Home or Self Care Social History Tobacco Use Types Packs/Day Years Used Date Smoking Tobacco: Former Cigarettes Q uit: 05/19/2006 Passive Smoke Exposure: Never Smokeless Tobacco: Never Alcohol Use Standard Drinks/Week Comments Not Currently 3 (1 standard drink = 0.6 oz pur e alcohol) hasn't for months [facility] [employer] Answer Date Recorded In the past 12 [...] How often do you attend chur or confucianism services? Never 07/18/2022 Do you belong to any clubs o r organizations such as synagogue groups, unions, fraternal or athletic groups, or [...] care, and heating? Not very hard 07/18/2022 [facility] - [...] bedtime. 45 mg 08/27/2023 miscellaneous medical supply [facility] [place] CPAP machine for home use at [...] 01/11/2023 01/11/2024 documented as of this encounter Nursing Notes * Tiffany Calero R.N. - 12/26/2023 1:45 PM CDT Glucagon Administration Screening: Does patient have an allergy to glucagon or lactose (e.g. hives, difficulty breathing, anaphylaxis,necrolytic migratory erythema)? Note: nausea vomiting, bloating, and diarrhea are common and expected adverse effects of glucagon and/or lactose intolerance. NO If no, continue. Does patient have a history of insulinoma or pheochromocytoma? NO If no, continue. If yes, discuss with Radiologist. Does patient have diabetes? NO If no, continue. If yes, initiate nurse initiated protocol to order POC blood glucose . If yes and insulin dependent, provide patient with Glucagon Injections if you Have Diabetes card. What is patient's glucose? Not diabetic - less than 70 treat f using Hypoglycemia Nurse Initiated Protocol - between 70 and 300 administer medication as ordered. - greater than 300 notify radiologist and do not administer medication. Is patient safe to receive Glucagon YES If yes, administer Glucagon as outlined in order. Does the patient need to remain NPO following scan for additional appointments today? NO documented in this encounter Plan of Treatment Upcoming Encounters Date Type Department Care Team (Late st Contact Info) Description 03/29/2024 12:10 PM CDT Appointment Department of Laboratory Medicine in [address] [phone] Janice Salmon APRN, C.N.P., M.S.N. [address] [place] [phone] documented as of this encounter Procedures Procedure Name Priority Date/Time Associated Diagnosis Comments MR PROSTATE WITHOUT AND WITH IV CONTRAST RAD - Routine (most inpatients and all outpatients) 12/26/2023 2:40 PM CDT Primary Malignant Neoplasm Of Prostate (HCC) documented in this encounter Results * MR Prostate without and with [...] History of prostate cancer, Madeleine score: 7. Statuspost external beam radiation therapy followed by percutaneous cryoablationof the right posterior peripheral zone on 08/25/2022. Most recent PSA <0.10 ng/mL. COMPARISON: Prostate MRI 06/22/2023 and 12/20/2022, and CT [id number]/11/2023. PROSTATE: - Volume: 39 cc (PSA density [...] osseous lesion. 5. Healing sacral insufficiencies fractures. Janice Salmon APRN, C.N.P., M.S.N. IMG MRI PROCEDURES documented in this encounter Visit Diagnoses Diagnosis Primary Malignant Neoplasm Of Prostate (HCC) documented in this encounter Administered Medications Inactive Administered Medications - up to 3 most recent administrations Medication Order MAR Action Action Date Dose Rate Site gadoterate meglumine 0.5 mmol/mL (376.9 mg/mL) injection 1.6-20 mL (DOTAREM) 1.6-20 mL, intravenous, Once in imaging, contrast, Starting on Mon12/26/23 at 1340, For 1 dose, Imaging Protocol Orders, Dose per Radiant Medication Guidelines Given 12/26/2023 2:32 PM CDT 20 mL glucagon injection 0.5-1 mg (GlucaGen) 0.5-1 mg, subcutaneous, Once, On Mon12/26/23 at 1400, For 1 dose, Imaging Protocol Orders, Dose per Radiant Medication Guidelines Given 12/26/2023 1:52 PM CDT 1 mg Right Upper Arm (Back) sodium chloride (PF) 0.9 % injection 1-100 mL 1-100 mL, intravenous, Once, On Mon12/26/23 at 1400, For 1 dose, Imaging Protocol Orders, Dose per Radiant Medication Guidelines Given 12/26/2023 2:32 PM CDT 20 mL documented in this encounter Additional Health Concerns Assessment Noted Time PHQ-9 Depression Total Score: 3 03/13/20 14 8:24 AM CDT documented as of this encounter Care Teams Shape Brick Molder Relationship Specialty Start Date End Date Elsewhere, Pcp PCP - General Internal Medicine 01/17/23 documented as of this encounter
--- OUTSIDE RECORDS SUMMARY | 2024-02-12 18:00 | XMS_ITS | Encounter Summary ---
Author Organization [facility] Address [address] [place] [phone] Care Team Providers Care Senior Commissions Analyst Name Role Phone Elsewhere, Pcp Primary Care Provider Unavailabl e Reason for Visit * Reason Onset Date Comments Appt Request 02/06/2024 Catheter Removal Encounter Details Date Type Department Care Team (Latest Contact Info) Description 02/06/2024 Clinical Communication Department of Urology in [place], [place] [address] [place] [phone] Shara Aldrich, FEI, C.N.P., D.N.P. [address] [place] [phone] Appt Request (Catheter Removal) Social History Tobacco Use Types Packs/Day Years Used Date Smoking Tobacco: Former Cigarettes Q uit: 05/19/2006 Passive Smoke Exposure: Never Smokeless Tobacco: Never Alcohol Use Standard Drinks/Week Comments Not Currently 3 (1 standard drink = 0.6 oz pur e alcohol) hasn't for months [facility] Utilities Answer Date Recorded In the past 12 months has e [employer], gas, oil, or water [employer] threatened to shut off services in your [...] 07/18/2022 How often do you attend chur [employer] or caodaism services? Never 07/18/2022 Do you belong to any clubs o r organizations such as rastafarian groups, unions, fraternal or athletic groups, or [...] care, and heating? Not very hard 07/18/2022 [facility] - Occupational [...] your living situation today? I have a [facility] place to live 09/21/2023 Education Answer [...] CDT Appointment Department of Laboratory Medicine in [place] [address] [place] [phone] Janice Salmon APRN, C.N.P., M.S.N. [address] [place] [phone] documented as of this encounter Visit Diagnoses Not on filedocumented in this encounter Additional Health Concerns Assessment Noted Time PHQ-9 Depression Total Score: 3 03/13/20 14 8:24 AM CDT documented as of this encounter Care Teams Senior Commissions Analyst Relationship Specialty Start Date End Date Elsewhere, Pcp PCP - General Internal Medicine 01/17/23 documented as of this encounter
--- OUTSIDE RECORDS SUMMARY | 2024-02-12 18:00 | XMS_ITS | Encounter Summary ---
Author Organization [facility] Address [address] [place] [address] Care Team Providers Care Press Operator Automatic Name Role Phone Elsewhere, Pcp Primary Care Provider Unavailabl e Reason for Referral * Outpatient (Routine) - Authorized Specialty Diagnoses / Procedures Referred By Britt barber Referred To Contact Radiology Jaince Salmon APRN, C.N.Rubne, M.S.N. [address] [place] [phone] [facility] Referral ID Status Reason Start Date Expiration Date V isits Requested Visits Authorized [id number] Authorized 12/27/2023 06/27/2025 1 1 Scheduling Instructions Ang * MRI/CAT/PET Scan (Routine) - Authorized Specialty Diagnoses / Procedures Referred By Britt t Referred To Contact Radiology Diagnoses Primary Malignant Neoplasm Of Prostate (HCC) Procedures MR Prostate without and with IV Contrast Janice Salmon APRN, C.N.PMikel, M.S.N. [address] [place] [address] [facility] Referral ID Status Reason Start Date Expiration Date V isits Requested Visits Authorized [id number] Authorized 12/27/2023 12/26/2024 1 1 Reason for Visit * Outpatient (Routine) - Closed Specialty Diagnoses / Procedures Referred By Contac t Referred To Contact Radiology Janice Salmon APRN, C.N.P., M.S.N. [address] [place] [phone] [facility] Referral ID Status Reason Start Date Expiration Date Visits Re quested Visits Authorized [id number] Closed 06/23/2023 06/22/2026 1 1 Encounter Details Date Type Department Care Team (Late st Contact Info) Description 12/27/2023 2:30 PM CDT Virtual Visit Department of Radiology, [facility], in [place], [place] [address] [place] [phone] Janice Salmon APRN, C.N.P., M.S.N. [address] [place] [phone] Primary Malignant Neoplasm Of Prostate (HCC) (Primary Dx) Social History Tobacco Use Types Packs/Day Years Used Date Smoking Tobacco: Former Cigarettes Q uit: 05/19/2006 Passive Smoke Exposure: Never Smokeless Tobacco: Never Alcohol Use Standard Drinks/Week Comments Not Currently 3 (1 standard drink = 0.6 oz pur e alcohol) hasn't for months [facility] Utilities Answer Date Recorded In the [...] often do you attend chur ch or adventist services? Never 07/18/2022 Do you belong to any clubs o r organizations such as taoist groups, unions, fraternal or athletic groups, or [...] care, and heating? Not very hard 07/18/2022 [facility] ional [facility] - Occupational [...] your living situation today? I have a [facility] place to live 09/21/2023 Education Answer [...] AM CDT documented as of this encounter Progress Notes * Janice Salmon APRN, C.N.P., M.S.N. - 12/27/2023 2:30 PM CDT SUBJECTIVE Patient is without complaints. REASON FOR CONSULT Referring Provider: Janice Salmon APRN, C.N.P., M.S.N. Chief Complaint/Reason for Consult: Recurrent prostate cancer treated with MR guided cryoablation of the right posterior peripheral zone on August 25, 2022. HISTORY OF PRESENT ILLNESS Osvaldo Zuniga is a 68 y.o. male who presents with recurrent prostate cancer with MR guided cryoablation of the right posterior peripheral zone on August 25, 2022. Prostate cancer history (as nicely laid out by Dr. Mathew): 1. June 22, 2015: PSA 4.65 ng/mL 2. December 05, 2016: PSA 5.6 ng/mL 3. December 11, 2017: PSA 4.5 ng/mL 4. December 10, 2018: PSA 3.1 ng/mL 5. July 06, 2020: PSA 4.86 ng/mL 6. July 29, 2020: CT scan of the abdomen and pelvis urogram demonstrated that the prostate was enlarged. There was a slightly lobulated area of soft tissue attenuation contiguous with the midlineprostate projecting into the bladder base. There was mild wall thickening of the bladder. No pathologic enlargement of lymph nodes. No new suspicious skeletal abnormalities. 7. April 19, 2021: PSA 5.74 ng/mL 8. April 29, 2021: Urology appointment with Dr. Alexandria Segovia. Digital rectal examination demonstrated a 40 g prostate with no nodules. Recommended MRI and then likely biopsy. 9. June 01, 2021: MRI of the prostate demonstrated a prostate volume of 52 cc. In the transitional and central zones there was mild glandular and stromal hyperplasia with well encapsulated BPH nodules (PI-RADS 2). No focal lesions concerning for clinically significant adenocarcinoma. In the peripheral zone, right apical at the 7 o'clock position, 10 mm posterior lateral to the prostatic urethra at a level that was 16 mm above the bulbomembranous junction there was a lesion measuring 1.1 x 0.8 x 0.7 cm (PI-RADS 4). No jennifer transcapsular disease. Neurovascular bundles and seminal vesiclesappeared intact. No pelvic lymphadenopathy or evident bone marrow disease. 10. June 21, 2021: TRUS and UroNav biopsy was performed by Dr. Segovia. Pathology of the right medial apex demonstrated adenocarcinoma, Madeleine 4+4=8 (grade group 4), 70% total surface area involved, 1 of 1 core involved, perineural invasion present. Pathology of the right lateral apex demonstrated adenocarcinoma, [place] 3+3=6 (grade group 1), 5% total surface area involved, 1 of 1 core involved, perineural invasion present. Pathology of the right medial mid demonstrated adenocarcinoma, Madeleine 4+3=7 (grade group 3), foci suggestive of [place] pattern 5 tumor present, 55% total surface areainvolved, 1 of 1 core involved, perineural invasion present. Pathology of the right lateral mid demo nstrated adenocarcinoma, [place] 3+3=6 (grade group 1), 5-10% total surface area involved, 1 of 1 core involved, perineural invasion not identified. Pathology of the left medial apex demonstrated adenocarcinoma, Madeleine 4+4=8 (grade group 4), 25% total surface area involved, 1 of 1 core involved, perineural invasion not identified. Pathology of the left lateral apex demonstrated adenocarcinoma, [place] 4+3=7 (grade group 3), 40% total surface area involved, 1 of 1 core involved, perineural invasion present. Pathology of the left lateral base demonstrated adenocarcinoma, [place] 3+3=6 (grade group 1), less than 5% total surface area involved, 1 of 1 core involved, perineural invasion not identified. Pathology of lesion 1 in the right peripheral zone demonstrated adenocarcinoma, [place] 4+4=8 (grade group 4), 15% total surface area involved, 1 of 3 cores involved, perineural invasion present. Pathology of the remaining biopsies demonstrated benign prostatic tissue (5). 11. July 05, 2021: Follow-up appointment with Dr. Segovia who discussed treatment options. He discussed that given the patient's body habitus he would likely not be an ideal surgical candidate. Referral to Radiation Oncology in [place]. The patient received an Eligard 45 mg injection. 12. July 30, 2021: Dr. Mathew saw the patient in consultation and recommended definitive radiotherapy targeting the prostate, seminal vesicles and pelvic lymph node (30% calculated risk of heath involvement). 13. August 09, 2021: Bone density scan revealed osteopenia with a T-score of - 2.1 in the lumbar spine, new 2.7 at the left femoral neck, of 2.1 at the right femoral neck,-2.2 at the left hip, and-1.3 at right hip. 14. August 11, 2021: PSA 5.58 ng/mL. Testosterone 58 ng/dL. 15. October 26, 2020: PSA 4.66 ng/mL. 16. September 01, 2021 through October 08, 2021: Intensity modulated radiotherapy to a dose of 70.2 Gy in 26 fractions to the prostate and proximal seminal vesicles and to the pelvic lymph nodes to a dose of 46.8 Gy in 26 fractions. 17. December 24, 2021: PSA 3.09 ng/mL. Testosterone total 42 ng/dL. 18. December 30, 2021: Lupron 45 mg (6 month) injection scheduled under the care of Dr. Segovia. 19. February 28, 2022: PSA 2.23 ng/mL. 20. March 28, 2022: Colonoscopy revealed diffuse moderate mucosal changes secondary to colitis and diverticulosis of the sigmoid colon, and polyps. A sessile serrated adenoma in the ascending colon, tubular adenoma in the descending colon, hyperplastic polyp in the rectum, and biopsies from the sigmo id and rectum that were negative for dysplasia and malignancy but suggestive of prolapse or mechanical injury. 21. May 11, 2022: PSA 1.7 ng/mL. PSMA PET/CT scan revealed intense focal PSMA activity in the right peripheral zone of the prostate likely representing residual disease with an SUV max of 13.0. There was no other evidence of metastatic disease. 22. May 24, 2022: MRI prostate demonstrated a 10 x 5 mm enhancing lesion within the right peripheral zone of the prostate, posterior medial at midgland, highly suspicious. This enhancing lesion likely correlated with finding on prior PET-CT. Capsule was intact. Neurovascular bundle invasion, seminal vesicles invasion, or other organ invasion was absent. Negative for suspicious lymph nodes. Negative for suspicious bone lesions. Nonspecific thickening of the distal right ureter at the vesicourethral junction with mild fullness of the right renal pelvis. 23. June 28, 2022: MRI-guided biopsy of the right posterior prostate confirm prostatic adenocarcinoma with therapy associated changes, [place] 4 + 3 involving 5 of 11 cores with the most affected core involved by tumor over 90% of its length. An additional 5 cores were obtained from both sides of the prostate in all were benign. 24. June 30, 2022: Follow-up visit with Dr. Segovia. Patient received a Lupron 45 mg injection. 25. August 25, 2022: MR guided cryoablation of the right posterior peripheral zone 26. December 20, 2022 PSA undetectable. MR prostate negative 27. February 22, 2023 [email or web address] sacroneuromodulation system implant with incision and implantation of tined quadrupolar electrode into S3 foramen (leftside) with fluoroscopic guidance for needle placement, subcutaneous implantation of sacral neuromodulation and electronic analysis of programming i [employer] for program parameters 28. March 15, 2023 PSA undetectable. 29. June 22, 2023 PSA undetectable. MR prostate demonstrates low suspicion for local recurrence. MRI does show prominent left periaortic/common iliac lymph node. Bilateral sacral insufficiency fractures are noted. 30. 12/26/2023 prostate MR demonstrates posttreatment changes in the prostate gland with a large ablation defect in the right posterior gland. Small diffusion restriction nodules along the inner wallof the ablation defect which are indeterminate and could represent blood products but recurrence can not be entirely excluded. PSA undetectable. Patient's last Lupron injection was 2021. The following portions of the patient's history were reviewed and updated as appropriate: allergies, current medications, medical history, surgical history, and problem list. REVIEW OF SYSTEMS Constitutional: negative OBJECTIVE There were no vitals filed for this visit. PHYSICAL EXAM General Appearance: healthy, alert, no distress. DIAGNOSTICS Lab Results Component Value Date/Time HGB 10.6 (L) 12/21/2023 08:33 AM HCT 31.6 (L) 12/21/2023 08:33 AM PLT 110 (L) 12/21/2023 08:33 AM INR 1.3 (H) 12/21/2023 08:33 AM Recent Labs 12/26/23 1236 PSA <0.10 IMAGING EXAM: MR PROSTATE WITHOUT AND WITH IV CONTRAST 12/26/2023 IMPRESSION: 1. Posttreatment changes in the prostate gland with a large ablation defect in the right posterior gland. 2. Small apparently diffusion restricted nodules along the inner wall of the ablation defect, indeterminate. These likely represent blood products but recurrence cannot be entirely excluded. Continued imaging follow-up is recommended. 3. No new worrisome nodules in the prostate gland. 4. No lymphadenopathy or suspicious osseous lesion. 5. Healing sacral insufficiencies fractures. ASSESSMENT / PLAN #1 Primary Malignant Neoplasm Of Prostate (HCC) Called the patient and talked for about 5 minutes. Reviewed the MRI and PSA with the patient. PSA is undetectable. MRI demonstrates posttreatment changes in the prostate gland with a large ablation defect in the right posterior and small diffusion restricted nodules along the inner wall of the ablation defect which are indeterminate but low suspicion for local recurrence. Left periaortic/common iliac lymph node stable. Patient has had urinary difficulty since the radiation including urinary urgency. Patient had interval urinary sphincter placement since last clinic visit which he reports has improved his leakage by60-70%. However, patient does still report that he has a weak stream that seems to be worsening over time. He also notes that his urine is bright yellow in color and has an odor. Patient has been followed by our Urology colleagues and has undergone CT urograms and cystoscopy. Patient does have CT urogram scheduled on January 15 which he needs rescheduled due to getting a brain aneurysm treated. Discussed with the patient that he is due for prostate biopsy at next follow-up in 6 months. Overall, the patient is doing well. Questions answered. Plan: 1. Three month PSA check in [place], [place] 2. Six-month follow-up with prostate MRI, OPC biopsy, PSA, and clinic visit with myself or Dr. Pace. Electronically signed by: Marcos Salmon APRN, C.N.P., M.S.N. 12/27/23 2:50 PM CDT Consult conducted via real-time audio/video technology by Marcos Salmon APRN, C.N.P., M.S.N. in [facility] to the patient in Patient's Home documented in this encounter Plan of Treatment Upcoming Encounters Date Type Department Care Team (Late st Contact Info) Description 03/29/2024 12:10 PM CDT Appointment Department of Laboratory Medicine in [place], [place] [address] [place] [address] Janice Salmon APRN, C.N.P., M.S.N. [address] [place] [phone] Scheduled Orders Name Type Priority Associated Diagnoses Orde r Schedule PSA (Prostate-Specific Antigen), Diagnostic Lab Routine Primary Malignant Neoplasm Of Prostate (HCC) Expected: 03/27/2024, Expires: 03/27/2025 PSA (Prostate-Specific Antigen), Diagnostic Lab Routine Primary Malignant Neoplasm Of Prostate (HCC) Expected: 06/27/2024, Expires: 03/27/2025 MR Prostate without and with IV Contrast Imaging RAD - Routine (most inpatients and all outpatients) Primary Malignant Neoplasm Of Prostate (HCC) Expected: 06/27/2024, Expires: 03/27/2025 Scheduled Referrals Name Type Priority Associated Diagnoses Order Schedule Interventional Radiology office visit (clinic) Outpatient Referral Routine Expected: 06/27/2024, Expires: 03/27/2025 documented as of this encounter Visit Diagnoses Diagnosis Primary Malignant Neoplasm Of Prostate (HCC)- Primary documented in this encounter Additional Health Concerns Assessment Noted Time PHQ-9 Depression Total Score: 3 03/13/20 14 8:24 AM CDT documented as of this encounter Care Teams Press Operator Automatic Relationship Specialty Start Date End Date Elsewhere, Pcp PCP - General Internal Medicine 01/17/23 documented as of this encounter
--- OUTSIDE RECORDS SUMMARY | 2024-02-12 18:00 | XMS_ITS | Encounter Summary ---
Author Organization [facility] Address [address] [place] [address] Care Team Providers Care Senior Procurement Specialist Name Role Phone Elsewhere, Pcp Primary Care Provider Unavailabl e Reason for Visit * Outpatient (Routine) - Closed Specialty Diagnoses / Procedures Referred By Britt barber Referred To Contact Urology Shara Aldrich APRN, C.N.P., D.N.P. [address] [place] [phone] [facility] Referral ID Status Reason Start Date Expiration Date Visits Re quested Visits Authorized [id number] Closed 10/17/2023 04/17/2025 1 1 Encounter Details Date Type Department Care Team (Late st Contact Info) Description 01/29/2024 7:00 AM CDT Virtual Visit Department of Urology in [place], [place] [address] [place] [phone] Shara Aldrich APRN, C.N.P., D.N.P. [address] [place] [phone] Defect Ureteral Filling (Primary Dx) Social History Tobacco Use Types Packs/Day Years Used Date Smoking Tobacco: Former Cigarettes Q uit: 05/19/2006 Passive Smoke Exposure: Never Smokeless Tobacco: Never Alcohol Use Standard Drinks/Week Comments Not Currently 3 (1 standard drink = 0.6 oz pur e alcohol) hasn't for months [facility] Utilities Answer Date Recorded In the [...] week 07/18/2022 How often do you attend [facility] or mu-ism services? Never 07/18/2022 Do you belong to any clubs o r organizations such as jain groups, unions, fraternal or athletic groups, or [...] care, and heating? Not very hard 07/18/2022 [facility] Occupat ional Health - Occupational Stress [...] your living situation today? I have a [facility] place to live 09/21/2023 Education Answer [...] as of this encounter Progress Notes * Shara Aldrich, FEI, C.N.P., D.N.P. - 01/29/2024 7:00 AM CDT Contacted patient by phone. Patient at rehab facility. Patient request cancellation of appointment.He is followed by local urology team. documented in this encounter Plan of Treatment Upcoming Encounters Date Type Department Care Team (Late st Contact Info) Description 03/29/2024 12:10 PM CDT Appointment Department of Laboratory Medicine in [address] [phone] Janice Salmon APRN, C.N.P., M.S.N. [address] [place] [phone] documented as of this encounter Visit Diagnoses Diagnosis Defect Ureteral Filling- Primary documented in this encounter Additional Health Concerns Assessment Noted Time PHQ-9 Depression Total Score: 3 03/13/20 14 8:24 AM CDT documented as of this encounter Care Teams Senior Procurement Specialist Relationship Specialty Start Date End Date Elsewhere, Pcp PCP - General Internal Medicine 01/17/23 documented as of this encounter
--- OUTSIDE RECORDS SUMMARY | 2024-02-12 18:00 | XMS_ITS ---
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 Past Plans No past plan information found. Radiation Treatments * Plan Last Treated On Elapsed Days Fractions Treated Prescribed Fraction Dose Prescribed Total Dose F1 prostateLN 10/08/2021 37 26 of 26 270 cGy 7,020 cGy Reference Point Last Treated On Elapsed Days Session Dose Total Dose [id number] 10/08/2021 37 270 cGy 7,020 cGy Lifetime Dose Tracking * Chemical Lifetime Dose Automatic Entry Manual Entr y Radiation 35.4 mGy 35.4 mGy 0 mGy Fluoro Time 1.8 minutes 1.8 minutes 0 minutes DAP (cGy-cm2) 1,220.26 cGy-cm2 1,220.26 cGy-cm2 0 cGy- cm2 Resolved Problems Problem Noted Date Diagnosed Date Resolved Date Pain Chest Precordial 07/13/20182021 PreDiabetes 09/26/2016 06/27/2022 Pain Chest Atypical 04/07/2014 06/27/20 22
--- OUTSIDE RECORDS SUMMARY | 2024-02-12 18:01 | XMS_ITS | Encounter Summary ---
Author Organization [facility] Address [facility] [place] [address] Care Team Providers Care Cuff Presser Name Role Phone Mary Ruggiero PA-C Primary Care Provider [phone] Robyn Keys APRN FORGE HELPER Unavailable (Fgs), [facility] Unavailable Reason for Visit * Reason Comments Home Infusion Encounter Details Date Type Department Care Team (Late st Contact Info) Description 01/31/2024 Home Infusion ([facility]) [facility] [address] [place] [address] Nadya Burrows [facility] [address] [place], [place] [phone] Home Infusion Social History Tobacco Use Types Packs/Day Years Used Date Smoking Tobacco: Never Smokeless Tobacco: Never Alcohol Use Standard Drinks/Week Comments Not Currently 0 (1 standard drink = 0.6 oz pur e alcohol) Adolescent Education Answer Date Record ed Getting School Help Needed Not on file 06/10 Sex and Gender Information Value Date Recorded Sex Assigned at Not on file Gender Identity Not on file Sexual Orientation Not on file documented as of this encounter Progress Notes * Kavon Puente - 01/31/2024 10:37 AM CDT Therapy: IV ABX (Cefazolin 2g Q8H) Insurance: [employer] [place] Misc: No coverage for IV ABX through the pt's [employer] [place] plan. Pt must agree to self-pay for coverage. We would bill pt's Part D and they would be responsible for the remaining co-pay and supply costs. Based off the Cefazolin 2g Q8H the pt's cost estimate came out to about $38.28 per day for drug and supplies. For nursing, pt should have coverage if homebound, however [facility] is not contracted with Medicare and an outside nursing agency would be utilized instead. If pt is not homebound, there is no coverage and [facility] can provide nursing if pt agrees to self-pay an additional $90 per visit. In reference to benefits coverage for Emiliana [facility] received on 01/30/24 to check for IV ABX coverage. Please contact Intake with any questions, [phone] or In [employer] pool, Home Infusion ([id number]). documented in this encounter Plan of Treatment Not on file documented as of this encounter Visit Diagnoses Not on filedocumented in this encounter Care Teams Cuff Presser Relationship Specialty Start Date End Date Mary Ruggiero PA-C [address] [place] [address] PCP - General 01/16/24 Robyn Keys APRN FORGE HELPER [address] [place] [address] Nurse Practitioner Family Medicine 01/24/24 02/03/24 (Fgs), [facility] [address] [place] [phone] 01/24/24 02/03/24 documented as of this encounter
--- OUTSIDE RECORDS SUMMARY | 2024-02-12 18:01 | XMS_ITS | Encounter Summary ---
Author Organization [facility] Address [address] [place] [address] Care Team Providers Care Professor Of Journalism Name Role Phone Mary Ruggiero PA-C Primary Care Provider [phone] Robyn Keys APRN CARE TECH Unavailable (Fgs), [facility] - Lev Unavailable Reason for Visit * Reason Comments RECHECK Encounter Details Date Type Department Care Team (Late st Contact Info) Description 01/26/2024 10:30 AM CDT Transitional Care Unit Visit [facility] [address] [place] [address] [phone] Robyn Keys, FEI CARE TECH [address] [place] [address] Lymphedema of both lower extremities (Primary Dx); Benign prostatic hyperplasia with urinary retention; Postoperative anemia Social History Tobacco Use Types Packs/Day Years [...] on file documented as of this encounter Last Filed Vital Signs Vital Sign Reading Time Taken Comments Blood Pressure 144/62 01/26/2024 8:31 AM CDT Pulse 86 01/26/2024 8:31 AM CDT Temperature 37.1 ??C (98.7 ??F) 01/26/2024 8:31 AM CD T Respiratory Rate 18 01/26/2024 8:31 AM CDT Oxygen Saturation 97% 01/26/2024 8:31 AM CDT Inhaled Oxygen Concentration - - Weight 142 kg (313 lb) 01/26/2024 8:31 AM CDT Height 182.9 cm (6') 01/26/2024 8:31 AM CDT Body Mass Index 42.45 01/26/2024 8:31 AM CDT documented in this encounter Progress Notes * Robyn Keys, FEI CARE TECH - 01/26/2024 10:30 AM CDT [facility] Chief Complaint Patient presents with RECHECK HPI: Osvaldo Zuniga is a 68 year old (1955), who is being seen today for an episodic care visit at: [facility] [[id number]]. Today's concern is: During exam, patient seen sitting in wheelchair. Reports doing well. Has been participating in therapy. Endorses chronic BLE edema, KILN PULLER was taking lasix 40mg every day and potassium chloride 20meq every day. Denies chest pain, SOB, headache, syncope. Allergies, and PMH/PSH reviewed in [facility] today. REVIEW OF SYSTEMS: 4 point ROS including Respiratory, CV, GI and , other than that noted in the HPI, is negative Objective: BP (!) 144/62 Pulse 86 Temp 98.7 ??F (37.1 ??C) Resp 18 Ht 1.829 m (6') Wt 142 kg (313 lb) SpO2 97% BMI 42.45 kg/m?? GENERAL APPEARANCE: Alert, in no distress, appears healthy, oriented, cooperative RESP: respiratory effort and palpation of chest normal, lungs clear to auscultation , no respiratory distress CV: regular rate and rhythm, no murmur, rub, or gallop; BLE lymphedema ABDOMEN: normal bowel sounds, soft, nontender, no guarding or rebound : Simmons intact w/adequate output. M/S: Gait and station abnormal, resting in bed. SKIN: Inspection of skin and subcutaneous tissue baseline, Palpation of skin and subcutaneous tissue baseline. R knee hydrocolloid dressing intact. NEURO: Cranial nerves 2-12 are normal tested and grossly at patient's baseline, Examination of sensation by touch normal PSYCH: oriented X 3, affect and mood normal Recent labs in [facility] reviewed by me today. Most Recent 3 CBC's: Recent Labs Lab Test 01/24/24 0648 01/20/24 0633 01/19/24 0726 01/18/24 0734 01/17/24 0832 WBC 8.2 -- 6.0 -- 11.4* HGB 7.9* 8.3* 7.5* < > 8.9* MCV 86 -- 82 -- 82 PLT 153 -- 135* -- 121* < > = values in this interval not displayed. Most Recent 3 BMP's: Recent Labs Lab Test 01/24/24 0648 01/23/24 0527 01/22/24 0714 01/22/24 0225 01/21/24 2104 01/21/24 0556 NA -- 137 139 -- -- 140 POTASSIUM -- 4.1 3.9 3.6 < > 3.6 CHLORIDE -- 103 105 -- -- 107 CO2 -- 27 27 -- -- 23 BUN -- 14.4 17.5 -- -- 23.0 CR 0.86 0.94 1.07 -- -- 1.10 ANIONGAP -- 7 7 -- -- 10 TOM -- 8.5* 8.5* -- -- 8.6* GLC -- 118* 120* -- -- 125* < > = values in this interval not displayed. Most Recent 2 LFT's: Recent Labs Lab Test 01/24/24 0648 01/16/24 0845 AST 20 19 ALT -- 16 ALKPHOS -- 122 BILITOTAL -- 1.4* Assessment/Plan: (I89.0) Lymphedema of both lower extremities (primary encounter diagnosis) Comment: Chronic BLE lymphedema Plan: - Add lasix 40mg every day dx BLE edema - Add potassium chloride 20meq every day dx hypokalemia - Check CMP, Hgb on 01/29/24 (N40.1, R33.8) Benign prostatic hyperplasia with urinary retention Comment: Chronic BPH with recent urinary retention with subsequent OMAR; simmons catheter is new. Creat 4.49 on 01/14/24, bilateral kidney ultrasound found distended bladder and hydronephrosis. CT 01/14 found moderate bilateral hydronephrosis secondary to traumatic catheter placement. Urology consulted , s/p cystoscopy with complex simmons placement with Dr. Woods. Plan: - Monitor output - Referral to Urology to establish care, hx complex simmons catheter placement (D64.9) Postoperative anemia Comment: Postop anemia secondary to staph aureus R knee septic arthritis requiring s/p revision of R TKA with placement of antibiotic spacer on 01/17/24. Plan: - Recheck Hgb on 01/29/24 (I67.1) Brain aneurysm Comment: Known brain aneurysm. KILN PULLER was taking plavix for planned surgical clipping on 01/15/24, which was canceled while in hospital. Plavix dc'd on 01/14/24, restarted upon discharge. Plan: - RN clarified with Neurology, ok to dx plavix. Was on plavix KILN PULLER due to planned aneurysm clip procedure on 01/15/24. States procedure will need to be scheduled and plan to be on plavix 8 days prior to procedure. Orders: - Add lasix 40mg every day dx BLE edema - Add potassium chloride 20meq every day dx hypokalemia - Check CMP, Hgb on 01/29/24 Electronically signed by: Robyn Keys APRN CNP documented in this encounter Plan of Treatment Not on file documented as of this encounter Visit Diagnoses Diagnosis Lymphedema of both lower extremities- Primary Benign prostatic hyperplasia with urinary retention Postoperative anemia Anemia, unspecified documented in this encounter Care Teams Professor Of Journalism Relationship Specialty Start Date End Date Mary Ruggiero PA-C [address] [place] [address] PCP - General 01/16/24 Robyn Keys APRN CNP [address] [place] [address] Nurse Practitioner Family Medicine 01/24/24 02/03/24 (Fgs), [facility] Michell Ohara [address] [phone] 01/24/24 02/03/24 documented as of this encounter
--- OUTSIDE RECORDS SUMMARY | 2024-02-12 18:01 | XMS_ITS | Encounter Summary ---
Author Organization [place] Address [facility] [place] [address] Care Team Providers Care Screwhead Polisher Name Role Phone Mary Ruggiero PA-C Primary Care Provider [phone] Robyn Keys APRN EXCHANGE CONSULTANT Unavailable (Fgs), [facility] - Stefan Unavailable Reason for Referral * Consultation (Routine) - Pending Review Specialty Diagnoses / Procedures Referred By Britt barber Referred To Contact Urology Diagnoses Benign prostatic hyperplasia with urinary retention Robyn Keys APRN EXCHANGE CONSULTANT [address] [place] [address] Referral ID Status Reason Start Date Expiration Date V isits Requested Visits Authorized [id number] Pending Review 01/26/2024 01/25/2025 1 1 Question Answer Referral Type: Urology Reason for Referral: Lower Urinary Symptoms Scheduling Instructions: Momail will call you to coordinate care as prescribed your provider. If you don? t hear from a food service sales representatives within 2 business days, please call . Additional Information: new simmons catheter secondary to urinary retention Comments Please be aware that coverage of these services is subject to the terms and limitations of your health insurance plan. Call member services at your health plan with any benefit or coverage questions. Momail will call you to coordinate care as prescribed your provider. If you don? t hear from a food service sales representatives within 2 business days, please call . Reason for Visit * Reason Comments Establish Care Encounter Details Date Type Department Care Team (Late st Contact Info) Description 01/25/2024 9:30 AM CDT Transitional Care Unit Visit [facility] [address] [place] [phone] Robyn Keys APRN CNP [address] [place] [phone] 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); S/P revision of total knee, right; Postoperative pain; Chronic pain syndrome; Benign prostatic hyperplasia with urinary retention; Lymphedema of both lower extremities; Anxiety and depression; Brain aneurysm Social History Tobacco Use Types Packs/Day Years [...] Sign Reading Time Taken Comments Blood Pressure 151/66 01/24/2024 4:59 PM CDT Pulse 81 01/24/2024 4:59 PM CDT Temperature 36.9 ??C (98.5 ??F) 01/24/2024 4:59 PM CD T Respiratory Rate 18 01/24/2024 4:59 PM CDT Oxygen Saturation 95% 01/24/2024 4:59 PM CDT Inhaled Oxygen Concentration - - Weight 142 kg (313 lb) 01/24/2024 4:59 PM CDT Height 182.9 cm (6') 01/24/2024 4:59 PM CDT Body Mass Index 42.45 01/24/2024 4:59 PM CDT documented in this encounter Progress Notes * Robyn Keys APRN CNP - 01/25/2024 9:30 AM CDT [facility] PRIMARY CARE PROVIDER AND CLINIC: Mary Ruggiero PA-C, [address] [facility] [id number] Chief Complaint Patient presents with [facility] where encounter took place: [facility] (TCU) [[id number]] Osvaldo Zuniga is a 68 year old (1955), admitted to the above facility from [facility]. Hospital stay 01/15/24 through 01/23/24. HPI: PMH: obesity, type 2 diabetes mellitus, essential hypertension, depression, anxiety, prostate cancer, incidental finding of brain aneurysm Admitted to [facility] due to right knee pain, hx R knee replacement (08/2020), hx MSSA bacteremia with infected prosthetic knee joint s/p open knee arthrectomy in 11/2020. Diagnosed with septic arthritis and is transferred to [facility] for orthopedic surgery evaluation and possible surgical intervention. Was started on IV vancomycin and had traumatic Simmons catheter insertion for urinary retention, patient has also developed OMAR in the past 24 hours before transfer. Hospitalized at [facility] 01/14-01/23/24 for ongoing treatment of septic arthritis. S/p right revision total knee arthroplasty with placement of antibiotic spacer on 01/17/24. ID consulted, treated with IV cefazolin x 6 weeks (to be completed on 02/28/24). Plan to follow-up with ID in 3 weeks. Transferred to [facility] on 01/23/24. Today's concerns: During exam, patient seen resting in bed with Rosibel (spouse) present. Reports doing ok. Rates pain to R knee 2/10 at rest, increased to 7/10. Has been taking oxycodone 5mg PRN w/minimal relief. Appetite poor, requesting ensure. Chronic cough for a few months; hx former smoker. Hx sleep apnea, previously used CPAP and not needing to use at this time. Denies chest pain, SOB, headache, syncope. CODE STATUS/ADVANCE DIRECTIVES DISCUSSION: Full Code ALLERGIES: Allergies Allergen Reactions Metformin Nausea PAST MEDICAL HISTORY: Past Medical History: Diagnosis Date Diabetes (H) Gastroesophageal reflux disease with esophagitis Hypertension Sleep apnea Thrombocytopenia (H24) PAST SURGICAL HISTORY: has a past surgical history that includes right knee replacement; Arthroplasty revision knee (Right, 01/17/2024); and Irrigation And Debridement Knee, Place A (Right, 01/17/2024). FAMILY HISTORY: family history is not on file. SOCIAL HISTORY: reports that he has never smoked. He has never used smokeless tobacco. He reports that he does not currently use alcohol. He reports that he does not use drugs. Patient's living condition: lives with spouse Post Discharge Medication Reconciliation Status: MED REC REQUIRED Post Medication Reconciliation Status: discharge medications reconciled and changed, per note/orders Current Outpatient Medications Medication Sig Dispense Refill acetaminophen (TYLENOL) 325 MG tablet Take 3 tablets (975 mg) by mouth every 8 hours alendronate (FOSAMAX) 70 MG tablet Take 70 mg by mouth every 7 days aspirin (ASA) 325 MG EC tablet Take 1 tablet (325 mg) by mouth daily for 42 days atorvastatin (LIPITOR) 10 MG tablet Take 10 mg by mouth daily calcitonin, salmon, (MIACALCIN) 200 UNIT/ACT nasal spray [place] 1 spray into one nostril alternatingnostrils daily Alternate nostril each day. ceFAZolin (ANCEF) intermittent infusion 2 g in 100 mL dextrose PRE-MIX Inject 100 mLs (2 g) into the vein every 8 hours for 40 days Please draw CBC with diff, creatinine, AST, and CRP weekly and fax results to [facility]. celecoxib (CELEBREX) 200 MG capsule Take 200 mg by mouth 2 times daily as needed for moderate pain clobetasol (TEMOVATE) 0.05 % external ointment Apply topically 2 times daily clopidogrel (PLAVIX) 75 MG tablet Take 75 mg by mouth daily DULoxetine (CYMBALTA) 60 MG capsule Take 120 mg by mouth daily famotidine (PEPCID) 10 MG tablet Take 10 mg by mouth 2 times daily as needed (stomach upset while on clopidogrel) ferrous sulfate (FE TABS) 325 (65 Fe) MG EC tablet Take 325 mg by mouth daily hydrOXYzine HCl (ATARAX) 25 MG tablet Take 50 mg by mouth every 6 hours as needed for itching lisinopril (ZESTRIL) 20 MG tablet Take 20 mg by mouth daily mirtazapine (REMERON) 30 MG tablet Take 15 mg by mouth at bedtime multivitamin, therapeutic (THERA-VIT) TABS tablet Take 1 tablet by mouth daily oxyCODONE (ROXICODONE) 5 MG tablet Take 1 tablet (5 mg) by mouth every 4 hours as needed for severepain 25 tablet 0 polyethylene glycol (MIRALAX) 17 GM/Dose powder Take 17 g by mouth daily pregabalin (LYRICA) 75 MG capsule Take 1 capsule (75 mg) by mouth 2 times daily 30 capsule 0 senna-docusate (SENOKOT-S/PERICOLACE) 8.6-50 MG tablet Take 1 tablet by mouth 2 times daily as needed for constipation tamsulosin (FLOMAX) 0.4 MG capsule Take 0.8 mg by mouth daily tiZANidine (ZANAFLEX) 4 MG tablet Take 4 mg by mouth every 6 hours as needed for muscle spasms Vitamin D3 (VITAMIN D, CHOLECALCIFEROL,) 25 mcg (1000 units) tablet Take 25 mcg by mouth daily vitamin E (TOCOPHEROL) 1000 units (450 mg) CAPS capsule Take 1,000 Units by mouth daily zolpidem (AMBIEN) 10 MG tablet Take 1 tablet (10 mg) by mouth nightly as needed for sleep 14 tablet0 No current facility-administered medications for this visit. ROS: 10 point ROS of systems including Constitutional, Eyes, Respiratory, Cardiovascular, Gastroenterology, Genitourinary, Integumentary, Musculoskeletal, Psychiatric were all negative except for pertinent positives noted in my HPI. Vitals: BP (!) 151/66 Pulse 81 Temp 98.5 ??F (36.9 ??C) Resp 18 Ht 1.829 m (6') Wt 142 kg (313 lb) SpO2 95% BMI 42.45 kg/m?? Exam: GENERAL APPEARANCE: Alert, in no distress, appears healthy, oriented, cooperative ENT: Mouth and posterior oropharynx normal, moist mucous membranes, normal hearing acuity EYES: EOM, conjunctivae, lids, pupils and irises normal, PERRL RESP: respiratory effort and palpation of chest normal, lungs clear to auscultation , no respiratory distress CV: regular rate and rhythm, no murmur, rub, or gallop; BLE lymphedema ABDOMEN: normal bowel sounds, soft, nontender, no guarding or rebound M/S: Gait and station abnormal, resting in bed. SKIN: Inspection of skin and subcutaneous tissue baseline, Palpation of skin and subcutaneous tissue baseline. R knee dressing intact w/GORDON wrap. NEURO: Cranial nerves 2-12 are normal tested and grossly at patient's baseline, Examination of sensation by touch normal PSYCH: oriented X 3, affect and mood normal Lab/Diagnostic data: Recent labs in [facility] reviewed by me today. Most Recent [...] Recent 2 LFT's: Recent Labs Lab Test 01/24/2448 01/16/24 0845 AST 20 19 ALT -- 16 ALKPHOS -- 122 BILITOTAL -- 1.4* ASSESSMENT/PLAN: (M00.061) Staphylococcal arthritis of right knee (H) (primary encounter diagnosis) (Z96.651) S/P revision of total knee, right (G89.18) Postoperative pain Comment: Uncontrolled postop pain secondary to recent staph aureus R knee septic arthritis requiring s/p revision of R TKA with placement of antibiotic spacer on 01/17/24. Hx R knee replacement (08/2020), hx MSSA bacteremia with infected prosthetic knee joint s/p open knee arthrectomy in 11/2020. Plan: - Check CMP, Hgb on 01/26/24 dx decreased appetite, BLE edema - Increase oxycodone 5-10mg every 4hrs PRN (5mg for pain 4-6/10; 10mg for pain 7-10/10). - Discontinue miralax - Continue ASA 325mg every day for DVT prophylaxis - Continue lyrica - RLE Gordon wrap: remove and assess skin every day. Change every day. - Remove postop dressing on 01/31/24 - Repeat XR R knee all views on 01/31/24 dx postop care - Patient to follow-up with Dr. Garcia (Ortho), and ID as directed - Continue PT, PT - SW following for discharge planning. Goal is to discharge home w/spouse. Spouse has assisted withIV antibiotic therapy at home in the past. 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 Creat 4.49 on 01/14/24, bilateral kidney ultrasound found distended bladder and hydronephrosis. CT 01/14 found moderate bilateral hydronephrosis secondary to traumatic catheter placement. Urology consulted , s/p cystoscopy with complex simmons placement with Dr. Woods. Hx prostate cancer. Plan: - Monitor output - Referral to Urology per patient request; requires TOV in 2-5 weeks (I89.0) Lymphedema of both lower extremities Comment: Chronic BLE lymphedema. PAD ASSEMBLER lasix held due to OMAR. Plan: - Therapy to eval/treat BLE lymphedema (F41.9, F32.A) Anxiety and depression Comment: Chronic Plan: - Continue duloxetine, mirtazapine - Monitor changes in mood or behaviors - House psychologist to follow (I67.1) Brain aneurysm Comment: Known brain aneurysm. 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 Plavix dc'd on 01/14/24, restarted upon discharge. Plan: - RN assisting with clarifying plan for plavix w/Neurology team. Discussed to hold plavix until able to clarify plan. Orders: - Referral to Urologist dx urinary retention - Increase oxycodone 5-10mg every 4hrs PRN (5mg for pain 4-6/10; 10mg for pain 7-10/10). - Discontinue miralax - RLE Gordon wrap: remove and assess skin every day. Change every day. - Therapy to eval/treat BLE lymphedema - Change flomax 0.8mg at bedtime, start on 01/26/24 dx BPH - Check CMP, Hgb on 01/26/24 dx decreased appetite, BLE edema - House psychologist to follow - Remove postop dressing on 01/31/24 - Repeat XR R knee all views on 01/31/24 dx postop care Total time spent during today's visit was 79 mins including patient visit (1355- 1439; 44 minutes) and review of past records (30 minutes). Time also spent coordinating care with RN regarding treatment plan and plavix concern (5 minutes). Electronically signed by: Robyn Keys APRN CNP documented in this encounter Plan of Treatment Scheduled Referrals Name Type Priority Associated Diagnoses Orde r Schedule Adult Urology Renewable Energy Technician Referral Referral Routine Benign prostatic hyperplasia with urinary retention Expected: 01/26/2024 (Approximate), Expires: 01/25/2025 documented as of this encounter Visit Diagnoses Diagnosis 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 Pyogenic arthritis, lower leg S/P revision of total knee, right Postoperative pain Other acute postoperative pain Chronic pain syndrome Benign prostatic hyperplasia with urinary retention Lymphedema of both lower extremities Anxiety and depression Dysthymic disorder Brain aneurysm Cerebral aneurysm, nonruptured documented in this encounter Care Teams Screwhead Polisher Relationship Specialty Start Date End Date Mary Ruggiero PA-C [address] [place] [address] PCP - General 01/16/24 Robyn Keys APRN EXCHANGE CONSULTANT [address] [place] [address] Nurse Practitioner Family Medicine 01/24/24 02/03/24 (Fgs), [facility] Michell Ohara [address] [phone] 01/24/24 02/03/24 documented as of this encounter
--- OUTSIDE RECORDS SUMMARY | 2024-02-12 18:01 | XMS_ITS | Encounter Summary ---
Author Organization [place] Address [address] [place] [address] Care Team Providers Care English Drawer Name Role Phone Mary Ruggiero PA-C Primary Care Provider [phone] Encounter Details Date Type Department Care Team (Late st Contact Info) Description 01/23/2024 [facility] [address] [place] [phone] Robyn Keys, FEI [facility] [address] [place] [phone] Social History Tobacco Use Types Packs/Day Years [...] on file documented as of this encounter Plan of Treatment Not on file documented as of this encounter Visit Diagnoses Diagnosis Primary insomnia- Primary Persistent disorder of initiating or maintaining sleep S/P revision of total knee, right documented in this encounter Care Teams English Drawer Relationship Specialty Start Date End Date Mary Ruggiero PA-C [address] [place] [address] PCP - General 01/16/24 documented as of this encounter
--- OUTSIDE RECORDS SUMMARY | 2024-02-12 18:01 | XMS_ITS | Encounter Summary ---
Author Organization [facility] Address [address] [place] [address] Care Team Providers Care Principal Process Engineer Name Role Phone Mary Ruggiero PA-C Primary Care Provider [phone] Robyn Keys APRN DIESEL LOCOMOTIVE FIRER/FIREMAN Unavailable (Fgs), [facility] - Lev Unavailable Reason for Visit * Reason Onset Date Comments Geriatrics Tracker 01/24/2024 Encounter Details Date Type Department Care Team (Late st Contact Info) Description 01/24/2024 Documentation Only [facility] [address] [place] [phone] 07 [facility] [address] [place] [phone] Geriatrics Tracker Social History Tobacco Use Types Packs/Day Years [...] on filedocumented in this encounter Care Teams Principal Process Engineer Relationship Specialty Start Date End Date Mary Ruggiero PA-C [address] [place] [address] PCP - General 01/16/24 Robyn Keys APRN DIESEL LOCOMOTIVE FIRER/FIREMAN [facility] [place] [address] Nurse Practitioner Family Medicine 01/24/24 02/03/24 (Fgs), [facility] Michell Ohara [address] [place] [phone] 01/24/24 02/03/24 documented as of this encounter
--- OUTSIDE RECORDS SUMMARY | 2024-02-12 18:01 | XMS_ITS | Encounter Summary ---
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, right Postoperative anemia Benign prostatic hyperplasia with urinary retention Brain aneurysm Lymphedema of both lower extremities Chronic pain syndrome Anxiety and depression Robyn Keys APRN COOK HOUSE SUPERVISOR [address] [place] [address] Referral ID Status Reason Start Date Expiration Date V isits Requested Visits Authorized [id number] Pending Review 02/02/2024 02/01/2025 1 1 Question Answer Reason for Referral: Mcfp, Physical Therapy Physical Therapy Eval and Treat for: Gait Training, Home Safety Assessment, Range of Motion, Therapeutic Exercise, Transfer Training Mcfp Eval and Treat for: Wound assessment and care, IV home infusion Additional Services Needed: Occupational Therapy, Home Health Aide Occupational Therapy Eval and Treat for: ADLs, Adaptive Therapy, Home Safety Is the patient homebound? Yes Homebound Status (describe the functional limitations that support this patient is confined to his/her home. Medicaid recipients are not required to be homebound.): Requires assistance of another person or specialized equipment is needed I attest that I saw or will see the patient on this date: 02/02/2024 Provider to follow patient MARY RUGGIERO [[id number]] * Consultation (Routine: Next available opening) - Pending Review Specialty Diagnoses / Procedures Referred By Britt barber Referred To Contact Diagnoses Staphylococcal arthritis of right knee (H) Robyn Keys APRN CNP [address] [place] [address] Referral ID Status Reason Start Date Expiration Date V isits Requested Visits Authorized [id number] Pending Review 02/02/2024 02/01/2025 1 1 Question Answer Preferred Location: [facility] [phone] Reason for Visit * Reason Comments Discharge Summary Senior Care Encounter Details Date Type Department Care Team (Late st Contact Info) Description 02/02/2024 7:30 AM CDT Discharge Summary Senior Care [facility] [address] [place] [phone] Robyn Keys APRN CNP [address] [place] [address] Discharge Summary Senior Care Social History Tobacco Use Types Packs/Day [...] Mass Index 42.02 02/02/2024 8:51 AM CDT documented in this encounter Progress Notes * Robyn Keys APRN CNP - 02/02/2024 7:30 AM CDT [facility] DISCHARGE SUMMARY PATIENT'S NAME: Osvaldo Zuniga DATE OF : 1955 Place of Service where encounter took place: [facility] ([facility]) [[id number]] PRIMARY CARE PROVIDER AND CLINIC RESPONSIBLE AFTER TRANSFER: Mary Ruggiero PA-C, [address] [place] [address] / [facility] [id number] Non-FMG Provider Transferring providers: Robyn Keys APRN COOK HOUSE SUPERVISOR; Feliberto Leigh MD Recent Hospitalization/ED: [facility] Hospital stay 01/15/24 to 01/23/24. Date of SNF Admission: 01/23/24 Date of SNF (anticipated) Discharge: 02/03/24 Discharged to: previous independent home Cognitive Scores: SLUMS: , safety questionnaire . Physical Function: Ambulating 60 ft with walker . Requires mod-max assistance w/lower body dressing. DME: Walker CODE STATUS/ADVANCE DIRECTIVES DISCUSSION: Full Code ALLERGIES: Metformin NURSING FACILITY COURSE Medication Changes/Rationale: ASA 325mg every day to be completed on 03/06/24 for DVT prophylaxis IV Cefazolin to be completed on 03/04/24; need confirmation from Infectious Disease Discontinued miralax Summary of nursing facility stay: PMH: obesity, type 2 diabetes mellitus, essential hypertension, depression, anxiety, prostate cancer, incidental finding of brain aneurysm Admitted to [facility] due to right knee pain, hx R knee replacement (08/2020), hx MSSA bacteremia with infected prosthetic knee joint s/p open knee arthrectomy in 11/2020. Diagnosed with septic arthritis and is transferred to [facility] for orthopedic surgery evaluation and possible surgical intervention. Was started on IV vancomycin and had traumatic Simmons catheter insertion for urinary retention, patient has also developed OMAR in the past 24 hours before transfer. Hospitalized at [facility] 01/14-01/23/24 for ongoing treatment of septic arthritis. S/p right revision total knee arthroplasty with placement of antibiotic spacer on 01/17/24. ID consulted, treated with IV cefazolin x 6 weeks (to be completed on 02/28/24). Plan to follow-up with ID in 3 weeks. Transferred to [facility] on 01/23/24. (M00.061) Staphylococcal arthritis of right knee (H) [...] open knee arthrectomy in 11/2020. Plan: - Continue oxycodone PRN, lyrica2, tylenol TID - ASA 325mg every day to be completed on 03/06/24 for DVT prophylaxis - IV Cefazolin to be completed on 03/04/24; need confirmation from Infectious Disease - Weekly labs through home sales service professional - [place] home care team and home infusion team to follow - Patient discharging home w/spouse - Patient to follow-up with Ortho on 03/11/24, confirmed elvira to be removed today - Patient to follow-up with ID as directed - Patient to follow-up with PCP within 2 weeks of discharge from TCU (N40.1, R33.8) Benign prostatic hyperplasia with urinary [...] prostate cancer. Plan: - Monitor output - Patient to follow-up with Urology Clinic on 03/03/24 to establish care; simmons to be replaced w/Urology due to hx traumatic simmons placement (I89.0) Lymphedema of both lower extremities Comment: Chronic BLE lymphedema. CUSTOMS BROKERAGE AGENT lasix held due to OMAR. Plan: - Continue to wear TG shapes on during day and off at night (F41.9, F32.A) Anxiety and depression Comment: Chronic Plan: - Continue duloxetine, mirtazapine - Monitor changes in mood or behaviors (I67.1) Brain aneurysm Comment: Known brain aneurysm. CUSTOMS BROKERAGE AGENT was taking plavix for planned surgical clipping on 01/15/24, which was canceled while in hospital. Plan: - Patient to follow-up with Neurologist as directed Discharge Medications: MED REC REQUIRED Post Medication Reconciliation Status: [...] calcitonin, salmon, (MIACALCIN) 200 UNIT/ACT nasal spray [place] 1 spray into one nostril alternatingnostrils daily Alternate nostril each day. ceFAZolin (ANCEF) intermittent infusion 2 g in 100 mL dextrose PRE-MIX Inject 100 mLs (2 g) into the vein every 8 hours for 40 days Please draw CBC with diff, creatinine, AST, and CRP weekly and [facility]. celecoxib (CELEBREX) 200 MG capsule Take 200 mg by mouth 2 times daily as needed for moderate pain clobetasol (TEMOVATE) 0.05 % external ointment Apply topically 2 times daily DULoxetine (CYMBALTA) 60 MG capsule Take [...] daily oxyCODONE (ROXICODONE) 5 MG tablet Take 1-2 tablets (5-10 mg) by mouth every 4 hours as needed for pain (5mg for pain 4-6/10; 10mg pain 7-10/10) 40 tablet 0 pregabalin (LYRICA) 75 MG capsule Take 1 [...] nightly as needed for sleep 14 tablet0 Controlled medications: Medication: oxycodone , 28 tabs given to patient at the time of discharge to take home Past Medical History: Past Medical History: Diagnosis Date Diabetes (H) Gastroesophageal reflux disease with esophagitis Hypertension Sleep apnea Thrombocytopenia (H24) Physical Exam: Vitals: BP 123/67 Pulse 90 Temp 98.8 ??F (37.1 ??C) Resp 16 Ht 1.829 m (6') Wt 140.5 kg (309 lb 12.8 oz) SpO2 98% BMI 42.02 kg/m?? BMI: Body mass index is 42.02 kg/m??. GENERAL APPEARANCE: Alert, in no distress, appears healthy, oriented, cooperative ENT: Mouth and posterior oropharynx normal, moist mucous membranes, normal hearing acuity EYES: EOM, conjunctivae, lids, pupils and irises normal, PERRL RESP: no respiratory distress CV: BLE lymphedema, TG shapes on M/S: Gait and station abnormal, sitting in wheelchair. Ambulates w/walker. SKIN: Inspection of skin and subcutaneous tissue baseline, Palpation of skin and subcutaneous tissue baseline. R knee incision BEHAVIOR CLINICIAN, elvira intact NEURO: Cranial nerves 2-12 are normal tested and grossly at patient's baseline, Examination of sensation by touch normal PSYCH: oriented X 3, affect and mood normal Wt Readings from Last 4 Encounters: 02/02/24 140.5 kg (309 lb 12.8 oz) 01/30/24 140.5 kg (309 lb 12.8 oz) 01/29/24 140.6 kg (310 lb) 01/26/24 142 kg (313 lb) SNF labs: [facility] reviewed by me today. Most Recent 3 CBC's: Recent Labs Lab Test 02/01/2481901/29/24145001/24/24 0648 01/20/24 0633 01/19/24 0726 WBC 6.5 -- 8.2 -- 6.0 HGB 8.1* 7.6* 7.9* < > 7.5* MCV 93 -- 86 -- 82 PLT 243 -- 153 -- 135* < > = values in this interval not displayed. Most Recent 3 BMP's: Recent Labs Lab Test 02/01/2481901/29/24145001/24/2448 01/23/24 0527 01/22/24 0714 NA -- 143 -- 137 139 POTASSIUM -- 4.2 -- 4.1 3.9 CHLORIDE -- 104 -- 103 105 CO2 -- 25 -- 27 27 BUN -- 14.9 -- 14.4 17.5 CR 0.67 0.77 0.86 0.94 1.07 ANIONGAP -- 14 -- 7 7 TOM -- 8.9 -- 8.5* 8.5* GLC -- 103* -- 118* 120* Most Recent 2 LFT's: Recent Labs Lab Test 02/01/2481901/29/24145001/24/24 0648 01/16/24 0845 AST 28 28 < > 19 ALT -- <5 -- 16 ALKPHOS -- 132 -- 122 BILITOTAL -- 0.6 -- 1.4* < > = values in this interval not displayed. Most Recent Anemia Panel: Recent Labs Lab Test 02/01/24 0820 WBC 6.5 HGB 8.1* HCT 26.8* MCV 93 PLT 243 DISCHARGE PLAN: Follow up labs: CBC w/diff, Creatinine, AST, CRP weekly on Wednesdays until 03/06/2024 fax results to [facility] [phone], Attn: [facility] Follow Up: Follow up with primary care provider in 2 weeks Follow up with specialist: - Patient to follow-up with Dr. Johnson ([place]) as directed - Urology on 03/03/24 to establish care - Patient to follow-up with Ortho on 03/11/24 - Patient to follow-up with Neurologist as directed Discharge Services: Home Care: Occupational Therapy, Physical Therapy, Registered Nurse, Home Health Aide, and From: [facility] Discharge Instructions Verbalized to Patient at Discharge: Incision may be kept open to air. Notify your surgeon if you have increased redness, swelling, tenderness, or drainage at your incision site. Notify PCP if you have a fever greater than 100.5 degrees. Simomns catheter: size 16 Nepalese; last changed 01/16/24; change every 4 weeks with Urology Clinic due to hx traumatic catheter placement DO NOT DRIVE while taking narcotic pain medications. PICC line management, last dressing changed on 02/02/24 (change weekly) TOTAL DISCHARGE TIME: Greater than 30 minutes Electronically signed by: Robyn Keys APRN CNP * Robyn Keys APRN COOK HOUSE SUPERVISOR - 02/02/2024 7:30 AM CDT [facility] Discharge Orders Name: Osvaldo Benjamin Nadia : 1955 Planned Discharge Date: 02/03/24 Discharged to: previous independent home MEDICAL FOLLOW UP Follow up with primary care provider in 2 weeks Follow up with specialist: - Patient to follow-up with Dr. Johnson ([place]) as directed - Urology on 03/03/24 to establish care - Patient to follow-up with Ortho on 03/11/24 - Patient to follow-up with Neurologist as directed FUTURE LABS: CBC w/diff, Creatinine, AST, CRP weekly on Wednesdays until 03/06/2024 fax results to [facility] [phone], Attn: [facility] ORDER CHANGES: ASA 325mg every day to be completed on 03/06/24 for DVT prophylaxis IV Cefazolin to be completed on 03/04/24; need confirmation from Infectious Disease Discontinued miralax DISCHARGE MEDICATIONS: The patient???s pharmacy is authorized to dispense a 30-day supply of medications. Refill requests should be directed to the primary provider, Mary Ruggiero. At discharge, the facility may send patient's remaining supply of controlled substances, specifically oxycodone, lyrica, ambien. Current Outpatient Medications Medication Sig Dispense Refill [...] calcitonin, salmon, (MIACALCIN) 200 UNIT/ACT nasal spray [place] 1 spray into one nostril alternatingnostrils daily Alternate nostril each day. ceFAZolin (ANCEF) intermittent infusion 2 g in 100 mL dextrose PRE-MIX Inject 100 mLs (2 g) into the vein every 8 hours for 40 days Please draw CBC with diff, creatinine, AST, and CRP weekly and fax results to [facility]. celecoxib (CELEBREX) 200 MG capsule Take 200 mg by mouth 2 times daily as needed for moderate pain clobetasol (TEMOVATE) 0.05 % external ointment Apply topically 2 times daily DULoxetine (CYMBALTA) 60 MG capsule Take [...] daily oxyCODONE (ROXICODONE) 5 MG tablet Take 1-2 tablets (5-10 mg) by mouth every 4 hours as needed for pain (5mg for pain 4-6/10; 10mg pain 7-10/10) 40 tablet 0 pregabalin (LYRICA) 75 MG capsule Take 1 [...] nightly as needed for sleep 14 tablet0 SERVICES: Home Care: Occupational Therapy, Physical Therapy, Registered Nurse, Home Health Aide, and From: [facility] ADDITIONAL INSTRUCTIONS: Incision may be kept open to air. Notify your surgeon if you have increased redness, swelling, tenderness, or drainage at your incision site. Notify PCP if you have a fever greater than 100.5 degrees. Simmons catheter: size 16 Nepalese; last changed 01/16/24; change every 4 weeks with Urology Clinic due to hx traumatic catheter placement DO NOT DRIVE while taking narcotic pain medications. 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, right Postoperative anemia Benign prostatic hyperplasia with urinary retention Brain aneurysm Lymphedema of both lower extremities Chronic pain syndrome Anxiety and depression Ordered: 02/02/2024 documented as of this encounter Visit Diagnoses Diagnosis 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 Pyogenic arthritis, lower leg S/P revision of total knee, right Postoperative anemia Anemia, unspecified Benign prostatic hyperplasia with urinary retention Brain aneurysm Cerebral aneurysm, nonruptured Lymphedema of both lower extremities Chronic pain syndrome Anxiety and depression Dysthymic disorder Infection of total right knee replacement, initial encounter (H24) Primary insomnia Persistent disorder of initiating or maintaining sleep Postoperative pain Other acute postoperative pain Age-related osteoporosis without current pathological fracture Senile osteoporosis documented in this encounter Care Teams Research Intern Relationship Specialty Start Date End Date Mary Ruggiero PA-C [address] [place] [address] PCP - General 01/16/24 Robyn Keys APRN COOK HOUSE SUPERVISOR [address] [place] [address] Nurse Practitioner Family Medicine 01/24/24 02/03/24 (Fgs), [facility] Ohara [address] [place] [phone] 01/24/24 02/03/24 documented as of this encounter
--- OUTSIDE RECORDS SUMMARY | 2024-02-12 18:01 | XMS_ITS | Encounter Summary ---
Author Organization [place] Address [address] [place] [id number] Care Team Providers Care Final Assembly Worker Name Role Phone Mary Ruggiero PA-C Primary Care Provider [phone] Robyn Keys APRN JOURNEYMAN MACHINIST Unavailable (Fgs), [facility] Unavailable Encounter Details Date Type Department Care Team (Latest Contact Info) Description 01/25/2024 Travel Social History Tobacco Use Types Packs/Day Years [...] on filedocumented in this encounter Care Teams Final Assembly Worker Relationship Specialty Start Date End Date Mary Ruggiero PA-C [address] [place] [address] PCP - General 01/16/24 Robyn Keys APRN JOURNEYMAN MACHINIST [address] [place] [address] Nurse Practitioner Family Medicine 01/24/24 02/03/24 (Fgs), [facility] Michell Ohara [address] [phone] 01/24/24 02/03/24 documented as of this encounter
--- OUTSIDE RECORDS SUMMARY | 2024-02-12 18:01 | XMS_ITS | Encounter Summary ---
Author Organization [place] Address [address] [place] [address] Care Team Providers Care Sterile Process Tech Name Role Phone Mary Ruggiero PA-C Primary Care Provider [phone] Robyn Keys APRN DISPATCHER MOTOR VEHICLE Unavailable (Fgs), [facility] Unavailable Encounter Details Date Type Department Care Team (Latest Contact Info) Description 02/02/2024 Travel Social History Tobacco Use Types Packs/Day [...] on filedocumented in this encounter Care Teams Sterile Process Tech Relationship Specialty Start Date End Date Mary Ruggiero PA-C [address] [place] [address] PCP - General 01/16/24 Robyn Keys APRN DISPATCHER MOTOR VEHICLE [address] [place] [address] Nurse Practitioner Family Medicine 01/24/24 02/03/24 (Fgs), [facility] Michell Ohara [address] [phone] 01/24/24 02/03/24 documented as of this encounter
--- OUTSIDE RECORDS SUMMARY | 2024-02-12 18:01 | XMS_ITS | Referral Summary ---
Author Organization [facility] Address [facility] [place] [address] Care Team Providers Care Hostler Helper Name Role Phone Mary Ruggiero PA-C Primary Care Provider [phone] Encounters Date Type Department Care Team Description 02/06/2024 Refill [facility] [address] [phone] Robyn Keys APRN CNP Medication Refill 02/02/2024 Refill [facility] [address] [phone] Robyn Keys APRN CNP Medication Refill 02/02/2024 Travel 02/02/2024 7:30 AM CDT Discharge Summary [facility] [address] [place] [phone] Robyn Keys APRN PARTY DEMONSTRATOR Discharge Summary [facility] 01/31/2024 Home Infusion ([facility]) [facility] [address] [place] [phone] Nadya Burrows RPH Home Infusion 01/31/2024 Telephone [facility] [address] [place] [address] None Appointment 01/30/2024 8:00 AM CDT Transitional Care Unit Visit [facility] [address] [place] [phone] Feliberto Leigh MD 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); Postoperative anemia; Benign prostatic hyperplasia with urinary retention; Brain aneurysm 01/29/2024 Travel 01/29/2024 9:00 AM CDT Transitional Care Unit Visit [facility] [address] [place] [phone] Robyn Keys APRN PARTY DEMONSTRATOR 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); S/P revision of total knee, right; Postoperative anemia; Benign prostatic hyperplasia with urinary retention; Lymphedema of both lower extremities 01/26/2024 10:30 AM CDT Transitional Care Unit Visit [facility] [address] [place] [phone] Robyn Keys APRN PARTY DEMONSTRATOR Lymphedema of both lower extremities (Primary Dx); Benign prostatic hyperplasia with urinary retention; Postoperative anemia 01/25/2024 Travel 01/25/2024 9:30 AM CDT Transitional Care Unit Visit [facility] [address] [place] [phone] Robyn Keys APRN PARTY DEMONSTRATOR 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); S/P revision of total knee, right; Postoperative pain; Chronic pain syndrome; Benign prostatic hyperplasia with urinary retention; Lymphedema of both lower extremities; Anxiety and depression; Brain aneurysm 01/24/2024 Documentation Only [facility] [address] [place] [phone] [facility] 01/23/2024 Refill [facility] [address] [place] [phone] Robyn Keys APRN PARTY DEMONSTRATOR 01/15/2024 8:33 PM CDT - 01/23/2024 11:21 AM CDT Hospital Encounter [facility]ine [address] [place] [address] Haseeb Barboza MD Iqbal, Saima, MD Dasari, Paul Dayan MD Tiago, Christopher D, MD 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); Infection of total right knee replacement, initial encounter (H24) Discharge Disposition: Jail Facility 01/17/2024 4:56 PM CDT Anesthesia Event [facility] [address] [place] [address] Rudy Avila MD Young, Addilyn 01/17/2024 4:30 PM CDT - 01/17/2024 8:15 PM CDT Surgery [facility] [address] [place] [phone] Caleb Garcia MD RIGHT REVISION TOTAL KNEE ARTHROPLASTY from Last 3 Months Allergies Active Allergy [...] (975 mg) by mouth every 8 hours Active senna-docusate (SENOKOT-S/NASH LACE) 8.6-50 MG tabletIndications [...] and CRP weekly and [facility]. 4 02/28/20 24 Active aspirin (ASA) [...] sprayIndications: Age-related osteoporosis without current pathological fracture [place] 1 spray into one nostril alternating nostrils [...] calcitonin, salmon, (MIACALCIN) 200 UNIT/ACT nasal spray [place] 1 spray into one nostril alternating nostrils [...] Noted Date Diagnosed Date Septic joint 01/15/2024 Social History Tobacco Use Types Packs/Day Years [...] 02/02/2024 8:51 AM CDT Plan of Treatment Not on file Medical Devices Implanted Type Area Call Centre Supervisor Device Identifier Shelf Expiration Date Model / Serial / Lot Bone Cement Simplex Full Dose 6191-1-001 - [id number] Implanted:Qty : 3 on 01/17/2024 by Caleb Garcia MD at [facility] Cement, Bone Right: Knee [employer] [id number] 10/18/2025 6191-1-00 1 / / [id number] Imp Comp Fem Strk Triathln Dist Aug 5mm Rt 6 5540-A-602 - [id number] Implanted:Qty : 1 on 01/17/2024 by Caleb Garcia MD at [facility] Total Joint Component /Insert Right: Knee [employer] [id number] 03/29/2028 5540-A-60 2 / / [id number] Imp Comp Fem Strk Triathln Dist Aug 5mm Rt 6 5540-A-602 - [id number] Implanted:Qty : 1 on 01/17/2024 by Caleb Garcia MD at [facility] Total Joint Component /Insert Right: Knee [employer] [id number] 11/02/2027 5540-A-60 2 / / [id number] Imp Comp Fem Strk Triathln Ps Rt 6 5515-F-602 - [id number] Implanted:Qty : 1 on 01/17/2024 by Caleb Garcia MD at [facility] Total Joint Component /Insert Right: Knee [employer] [id number] 11/16/2028 5515-F-60 2 / / [id number] Triathlon All Poly Tibial Compent - Ps Size #5, 11mm Ps Implanted:Qty : 1 on 01/17/2024 by Caleb Garcia MD at [facility] Total Joint Component /Insert Right: Knee [employer] [id number] 08/13/2028 5535-A-51 1 / / [id number] Explanted Type Area Call Centre Supervisor Device Identifier Shelf Expiration Date Model / Serial / Lot Right Knee 4 Components Explanted:Qty: 1 on 01/17/2024 by Caleb Garcia MD at [facility] Right: Knee Procedures Procedure Name Priority Date/Time [...] 02/01/2024 1:04 PM CDT Robyn Keys APRN PARTY DEMONSTRATOR LAB CHARG E PERFORMABLES LABORATORY [facility] [address] floor, [address] [place] [address], [facility] [phone] * (ABNORMAL) CBC with platelets and differential (02/01/2024 8:20 AM CDT) Only the most recent of2 resultswithin the time period is included. [facility] WBC Count 6.5 4.0 - 11.0 10e3/uL [...] 8:20 AM CDT 02/01/2024 1:04 PM CDT Robynastrid Spearchris ENAMORADO PARTY DEMONSTRATOR LAB - BLO OD ORDERABLES LABORATORY [facility] [address] floor, [address] [place] [address], [place] [phone] * (ABNORMAL) CRP inflammation (02/01/2024 8:20 AM CDT) Only the most recent of6 resultswithin the time period is included. CRP Inflammation 61.51(H) <5.00 mg/L 02/01/2024 2:06 PM CDT LABORATORY Blood STRUCTURE OF LEFT UPPER LIMB / Unknown Venipuncture / Unknown 02/01/2024 8:20 AM CDT 02/01/2024 1:04 PM CDT Robyn Jessicasharmila Keys APRN [facility] LAB - BLO OD ORDERABLES Performing Organization Address City/[facility]/ZIP Co de Phone Number [facility] [address] floor, [place] [address] [address], [place] [phone] * Creatinine (02/01/2024 8:20 AM CDT) Only the most recent of2 resultswithin the time period is included. Creatinine 0.67 0.67 - 1.17 mg/dL 02/01/2024 2:06 PM CDT LABORATORY GFR Estimate >90 >60 mL/min/1.73 m2 02/01/2024 2:06 PM CDT LABORATORY Blood STRUCTURE OF LEFT UPPER LIMB / Unknown Venipuncture / Unknown 02/01/2024 8:20 AM CDT 02/01/2024 1:04 PM CDT Robyn Jessicasharmila Keys APRN [facility] LAB - BLO OD ORDERABLES LABORATORY [facility] [address] floor, [address] [place] [address], [facility] [phone] * AST (02/01/2024 8:20 AM CDT) Only the most recent of2 resultswithin the time period is included. AST 28 0 - 45 U/L 02/01/2024 2:0 6 PM CDT LABORATORY Blood STRUCTURE OF LEFT UPPER LIMB / Unknown Venipuncture / Unknown 02/01/2024 8:20 AM CDT 02/01/2024 1:04 PM CDT Robyn Keys APRN [employer] LAB - BLO OD ORDERABLES LABORATORY [facility] [address] floor, [address] [place] [address], [facility] [phone] * (ABNORMAL) Hemoglobin (01/29/2024 2:51 PM CDT) Only the most recent of3 resultswithin the time period is included. Hemoglobin 7.6(L) 13.3 - 17.7 g/dL 01/29/2024 5:47 PM CDT LABORATORY Blood BLOOD SPECIMEN / Unknown Venipuncture / Unknown 01/29/2024 2:51 PM CDT 01/29/2024 5:38 PM CDT Robyn Keys APRN [employer] LAB - BLO OD ORDERABLES LABORATORY [facility] [address], [address] [place] [address], [facility] [phone] * (ABNORMAL) Comprehensive metabolic panel (01/29/2024 2:51 PM CDT) Only the most recent of2 resultswithin the time period is included. Sodium 143 135 - 145 mmol/L 01/29/2024 6:14 PM [facility] Comment:Reference intervals for this test were updated on 06/13/2023 to more accurately reflect our healthy population. There may be differences in the flagging of prior results with similar values performed with this method. Interpretation of those prior results can be made in the context of the updated reference intervals. Potassium 4.2 3.4 - 5.3 mmol/L 01/29/2024 6:14 PM [facility] Carbon Dioxide (CO2) 25 22 - 29 mmol/L 01/29/2024 6:14 PM [facility] Anion Gap 14 7 - 15 mmol/L 01/29/2024 6:14 PM [facility] Urea Nitrogen 14.9 8.0 - 23.0 mg/dL 01/29/2024 6:14 PM [facility] Creatinine 0.77 0.67 - 1.17 mg/dL 01/29/2024 6:14 PM [facility] GFR Estimate >90 >60 mL/min/1. 73m2 01/29/2024 6:14 PM [facility] Calcium 8.9 8.8 - 10.2 mg/dL 01/29/2024 6:14 PM [facility] Chloride 104 98 - 107 mmol/L 01/29/2024 6:14 PM [facility] Glucose 103(H) 70 - 99 mg/dL 01/29/2024 6:14 PM [facility] Alkaline Phosphatase 132 40 - 150 U/L 01/29/2024 6:14 PM [facility] Comment:Reference intervals for this test were updated on 08/01/2023 to more accurately reflect our healthy population. There may be differences in the flagging of prior results with similar values performed with this method. Interpretation of those prior results can be made in the context of the updated reference intervals. AST 28 0 - 45 U/L 01/29/2024 6:14 PM [facility] Comment:Reference intervals for this test were updated on 02/27/2023 to more accurately reflect our healthy population. There may be differences in the flagging of prior results with similar values performed with this method. Interpretation of those prior results can be made in the context of the updated reference intervals. ALT <5 0 - 70 U/L 01/29/2024 6:14 PM [facility] Comment:Reference intervals for this test were updated on 02/27/2023 to more accurately reflect our healthy population. There may be differences in the flagging of prior results with similar values performed with this method. Interpretation of those prior results can be made in the context of the updated reference intervals. Protein Total 7.5 6.4 - 8.3 g/dL 01/29/2024 6:14 PM CDT LABORATORY Albumin 2.8(L) 3.5 - 5.2 g/dL 01/29/2024 6:14 PM CDT LABORATORY Bilirubin Total 0.6 <=1.2 mg/dL 01/29/2024 6:14 PM CDT LABORATORY Blood BLOOD SPECIMEN / Unknown Venipuncture / Unknown 01/29/2024 2:51 PM CDT 01/29/2024 5:38 PM CDT Robyn Jessicasharmila Keys APRN PARTY DEMONSTRATOR LAB - BLO OD ORDERABLES LABORATORY [facility] [address] 1[address] floor, [address] [place] [address], [facility] [phone] * Quantiferon TB Gold Plus (01/24/2024 6:48 AM CDT) [facility] Quantiferon-TB Gold Plus Negative Negative 01/25/2024 1:14 [...] Result 0.00 IU/mL 01/25/2024 1:14 PM CDT UM SPECIALTY CORE/PROT/END O Blood STRUCTURE OF RIGHT UPPER LIMB / Unknown Venipuncture / Unknown 01/24/2024 6:48 AM CDT 01/24/2024 9:09 AM CDT Robyn Keys APRN [facility] LAB - [place] RO GENERAL ORDERABLES UM SPECIALTY CORE/PROT/ENDO UM Specialty Core/Prot/Endo [address] [facility] [address] [facility], [address] * Quantiferon TB Gold Plus Purple Tube (01/24/2024 6:48 AM CDT) Quantiferon Mitogen 0.52 IU/mL 01/25/2024 1:04 PM CDT UM SPECIALTY CORE/PROT/ENDO Blood STRUCTURE OF RIGHT UPPER LIMB / Unknown Venipuncture / Unknown 01/24/2024 6:48 AM CDT 01/24/2024 9:09 AM CDT Robyn Keys APRN [facility] LAB - [place] RO GENERAL ORDERABLES UM SPECIALTY CORE/PROT/ENDO UM Specialty Core/Prot/Endo [address] [facility] Unit [facility], [address] * Quantiferon TB Gold Plus Yellow Tube (01/24/2024 6:48 AM CDT) Quantiferon TB2 Tube 0.00 01/25/2024 1:05 PM CDT UM SPECIALTY CORE/PROT/ENDO Blood STRUCTURE OF RIGHT UPPER LIMB / Unknown Venipuncture / Unknown 01/24/2024 6:48 AM CDT 01/24/2024 9:09 AM CDT Robyn Keys APRN [facility] LAB - [place] RO GENERAL ORDERABLES UM SPECIALTY CORE/PROT/ENDO UM Specialty Core/Prot/Endo [address] [facility], [address] * Quantiferon TB Gold Plus Green Tube (01/24/2024 6:48 AM CDT) Quantiferon TB1 Tube 0.00 IU/mL 01/25/2024 1:07 PM CDT SPECIALTY CORE/PROT/ENDO Blood STRUCTURE OF RIGHT UPPER LIMB / Unknown Venipuncture / Unknown 01/24/2024 6:48 AM CDT 01/24/2024 9:09 AM CDT Robyn Keys APRN [facility] LAB - [place] RO GENERAL ORDERABLES UM SPECIALTY CORE/PROT/ENDO UM Specialty Core/Prot/Endo [address] [facility], [address] * Quantiferon TB Gold Plus [place] Tube (01/24/2024 6:48 AM CDT) Pathologist [facility] Quantiferon Nil Tube 0.00 IU/mL 01/25/2024 1:07 PM CDT SPECIALTY CORE/PROT/ENDO Blood STRUCTURE OF RIGHT UPPER LIMB / Unknown Venipuncture / Unknown 01/24/2024 6:48 AM CDT 01/24/2024 9:09 AM CDT Robyn Keys APRN, CNP LAB - [facility] RO GENERAL ORDERABLES UM SPECIALTY CORE/PROT/ENDO Specialty Core/Prot/Endo [address] [facility], [address] * (ABNORMAL) Basic metabolic panel (01/23/2024 5:27 AM CDT) Only the most recent of7 resultswithin the time period is included. Sodium 137 135 - 145 mmol/L 01/23/2024 6:19 AM CDT SH LABORATORY Comment:Reference intervals for this test were [...] MD LAB - BLOOD ORDERABL ES LABORATORY [facility] [address], [address] [place] [address], [facility] [phone] * Potassium (01/22/2024 2:25 AM CDT) Only the most recent of2 resultswithin the time period is included. [facility] Potassium 3.6 3.4 - 5.3 mmol/L 01/22/2024 2:52 AM CDT LABORATORY Blood VENOUS LINE / Unknown Venipuncture / Unknown 01/22/2024 2:25 AM CDT 01/22/2024 2:39 AM CDT Jason Walker MD LAB - BLOOD ORDERAB LES LABORATORY [facility] [address] 1[address] floor, [address] [place] [address], [place] [phone] * CT Abdomen Pelvis w/o Contrast (01/20/2024 [...] CT ABDOMEN AND PELVIS WITHOUT CONTRAST LOCATION: [facility] DATE: 01/20/2024 INDICATION: Following for hydronephrosis, air [...] CT ABDOMEN AND PELVIS WITHOUT CONTRAST LOCATION: [facility] DATE: 01/20/2024 INDICATION: Following for hydronephrosis, air [...] cardiomediastinal silhouette. SVITLANA ASCENCIO MD SYSTEM ID: [id number] Narrative 01/19/2024 2:37 PM CDT CHEST ONE [...] cardiomediastinal silhouette. SVITLANA ASCENCIO MD SYSTEM ID: [id number] Judy Banegas PA-C [facility] DI[facility]NOST[facility] IM AGING ORDERABLES * Single Lumen PICC Placement (01/19/2024 2:11 PM CDT) Narrative Esther Mccabe RN - 01/19/2024 2:11 PM CDT Esther Mccabe RN ? 01/19/2024 ??2:[address] [facility] Single Lumen PICC Placement Date/Time: 01/19/2024 2:11 PM Performed by: Esther Mccabe, RN Authorized by: uJdy Banegas PA-C ??Indications: vascular access UNIVERSAL PROTOCOL [...] procedure a time out was called ?? [place] Protocol: the Joint Commission [place] Protocol was followed ?? Preparation: Patient was [...] (ABNORMAL) CBC with platelets (01/19/2024 7:26 AM T) Only the most recent of3 resultswithin the time period is included. WBC Count 6.0 4.0 - 11.0 10e3/uL 01/19/2024 7:56 AM [facility] RBC Count 2.76(L) 4.40 - 5.90 10e6/uL 01/19/2024 7:[facility] Hemoglobin 7.5(L) 13.3 - 17.7 g/dL 01/19/2024 7:56 AM [facility] Hematocrit 22.7(L) 40.0 - 53.0 % 01/19/2024 7:56 AM [facility] MCV 82 78 - 100 fL 01/19/2024 7:56 [facility] MCH 27.2 26.5 - 33.0 pg 01/19/2024 7:56 [facility] MCHC 33.0 31.5 - 36.5 g/dL 01/19/2024 7:56 AM [facility] RDW 15.8(H) 10.0 - 15.0 % 01/19/2024 7:56 AM CDT LABORATORY Platelet Count 135(L) 150 - 450 10e3/uL 01/19/2024 7:56 AM CDT LABORATORY Blood STRUCTURE OF RIGHT UPPER LIMB / Unknown Venipuncture / Unknown 01/19/2024 7:26 AM CDT 01/19/2024 7:51 AM CDT Susan Moody MD LAB - BLOOD ORDERABL ES LABORATORY [facility] [address] 1[address], [address] [place] [address], [place] [phone] * (ABNORMAL) Glucose by meter (01/17/2024 8:16 PM CDT) Only the most recent of5 resultswithin the time period is included. [facility] GLUCOSE BY METER POCT 123(H) 70 - 99 mg/dL 01/17/2024 8:23 PM CDT LABORATORY POC Blood, Capillary BLOOD SPECIMEN / Unknown 01/17/2024 8:16 PM CDT 01/17/2024 8:23 PM CDT Jason Walker MD LAB - BEAKER POCT Performing Organization Address City/[facility]/ZIP Co de Phone Number LABORATORY POC [facility] [address] 1[address] floor, [address] [place] [address], [facility] * XR Knee Port Right 1/2 Views [...] XR KNEE PORT RIGHT 1/2 VIEWS LOCATION: [facility] DATE: 01/17/2024 INDICATION: Post Op Total Knee COMPARISON: None. Procedure Note Alfa Patel DO - 01/17/2024 EXAM: XR KNEE PORT RIGHT 1/2 VIEWS LOCATION: [facility] DATE: 01/17/2024 INDICATION: Post Op Total Knee [...] MD LAB - MICRO GENE RAL ORDERABLES Performing Organization Address [facility] Co de Phone Number [facility]ORAT[facility] Inf. Diseases Diag. Lab [address] [facility][[address]], [address] * Anaerobic Bacterial Culture Routine (01/17/2024 6:42 PM CDT) Only the most recent of6 resultswithin the time period is included. Culture No anaerobic organisms isolated [place] 01/31/2024 8:08 AM CDT [facility] LABORATORY Synovial fluid STRUCTURE OF RIGHT KNEE REGION / Unknown Non-blood Collection / Unknown 01/17/2024 6:42 PM CDT 01/17/2024 7:18 PM CDT Caleb Garcia MD LAB - MICRO GENE RAL ORDERABLES Performing Organization Address [facility] Co de Phone Number [facility] Inf. Diseases Diag. Lab [address] [facility][1], [place] [phone] * ANE AIRWAY ETT PERFORMABLE (01/17/2024 5:07 PM CDT) Narrative Machelle Davidson - 01/17/2024 5:07 PM CDT Machelle Davidson ? 01/17/2024 ??5:18 PM Airway ? Patient location during procedure: OR ? Procedure Start/Stop Times: 01/17/2024 5:07 PM Staff - ? Anesthesiologist: ??Quintin Carbajal MD ? MANAGER ORACLE: Machelle Davidson ? Performed By: MANAGER ORACLE Consent for Airway ? Urgency: elective Indications [...] Time: 01/17/2024 5:07 PM Quintin Carbajal MD [place] [facility] * (ABNORMAL) UA Macroscopic with reflex to Microscopic and Culture (01/16/2024 4:40 PM CDT) Color Urine Red(A) Colorless, Straw, Light Yellow, Yellow 01/16/2024 4:57 PM T LABORATORY Appearance Urine Cloudy(A) Clear 01/16/20 24 4:57 PM CDT LABORATORY Glucose Urine Negative Negative mg/dL 01/16/2024 4:57 PM CDT LABORATORY Bilirubin Urine Negative Negative 4:57 PM CDT LABORATORY Ketones Urine Negative Negative mg/dL 01/16/2024 4:57 PM CDT LABORATORY Specific [place] Urine 1.008 1.003 - 1.035 01/16/2024 4:57 [...] Urbano PA-C LAB - URINE OR DERABLES SH LABORATORY [facility] [address], [address] [place] [address], [facility] * Urine Culture (01/16/2024 4:40 PM CDT) Culture No Growth A[place]ANDRE 01/18/2024 7:16 AM CDT [facility] LABORAT[facility] Urine URINE SPECIMEN OBTAINED VIA [employer]WELLING URINARY CATHETER / Unknown Non-blood Collection / Unknown 01/16/2024 4:40 PM CDT 01/16/2024 4:56 PM CDT Barby Scryer PA-C LAB - MICRO GE NERAL ORDERABLES [facility] Inf. Diseases Diag. Lab [address] [facility][1], [address] [place] [address], [facility] * Blood Culture Hand, Left (01/16/2024 2:09 [...] Johnson MD LAB - MICRO GENERAL ORDERABLES Performing Organization Address City/[facility]/ZIP Co de Phone Number [facility] Inf. Diseases Diag. Lab [address] [facility][1], Room [place] [phone] * MRSA MSSA PCR, Nasal Swab (01/16/2024 10:37 AM CDT) MRSA Target DNA Negative Negative 01/16/2024 2:32 PM CDT [facility] SA Target DNA Positive 01/16/2024 2:32 PM CDT [facility] Swab BOTH ANTERIOR NARES / Unknown Non-blood Collection / Unknown 01/16/2024 10:37 AM CDT 01/16/2024 11:10 AM CDT Narrative [facility] - 01/16/2024 2:32 PM CDT The [employer]epMapSenseid?? Xpert SA Nasal Complete assay performed in the GeneFerevo?? Dx System is a qualitative in vitro [...] PA-C LAB - MICRO GEN ERAL ORDERABLES Performing Organization Address City/[facility]/ZIP Co de Phone Number [facility] Inf. Diseases Diag. Lab [address] [facility][1], [address] [phone] * Adult Type and Screen (01/16/2024 8:45 AM CDT) ABO/RH(D) A POS 01/16/2024 8:19 AM CDT BLOOD BANK Antibody Screen Negative Negative 01/16/2024 8:19 AM CDT BLOOD BANK SPECIMEN EXPIRATION DATE [id number] 01/16/2024 8:19 AM CDT BLOOD BANK Blood STRUCTURE OF RIGHT UPPER LIMB / Unknown Venipuncture / Unknown 01/16/2024 8:45 AM CDT 01/16/2024 8:57 AM CDT Stacy Bland PA-C LAB - BLOOD BAN K TEST ORDER BLOOD BANK [address] [place] [address] * (ABNORMAL) Erythrocyte sedimentation rate auto (01/16/2024 8:45 AM CDT) Pathologist [facility] Erythrocyte Sedimentation Rate 79(H) 0 - 20 mm/hr 01/16/2024 9:10 AM CDT LABORATORY Blood STRUCTURE OF RIGHT UPPER LIMB / Unknown Venipuncture / Unknown 01/16/2024 8:45 AM CDT 01/16/2024 8:57 AM CDT Stacy Bland PA-C LAB - BLOOD ORD ERABLES LABORATORY [facility] [address], [address] [place] [address] * EKG 12-lead, tracing only (01/16/2024 7:10 AM CDT) Systolic Blood Pressure mmHg RADIOLOGY RESULTS Diastolic Blood Pressure mmHg RADIOLOGY RESULTS Ventricular Rate 92 BPM RAD IOLOGY RESULTS Atrial Rate 92 BPM RADIOLOG Y RESULTS WV Interval 164 ms RADIOLOG Y RESULTS QRS Duration 112 ms RADIOLO GY RESULTS QT 388 ms RADIOLOGY RESULTS QTc 479 ms RADIOLOGY RESULTS P Avery 72 degrees RADIOLOGY RESULTS R AXIS 51 degrees RADIOLOGY RESULTS T Avery 58 degrees RADIOLOGY RESULTS Interpretation ECG Sinus rhythm Normal ECG No previous ECGs available Confirmed by MD WILEY MICHAEL ([id number]) on 01/16/2024 4:56:17 PM RADIOLOGY RESULTS 01/16/2024 7:10 AM CDT 01/16/2024 4:56 PM CDT Karlie Rosenthal MD ECG ORDERABLES RADIOLOGY RESULTS from Last 3 Months Advance Directives For more information, please contact: [phone] * Full Code (Latest Code Status on File) Date Activated Date Inactivated Comments 01/23/2024 8:19 AM Question Answer Comments Code status determined by: Discussion with junior nt/ legal decision maker * Full Code Date [...] Code status determined by: Discussion with junior nt/ legal decision maker Care Teams Hostler Helper Relationship Specialty Start Date End Date Mary Ruggiero PA-C [address] [place] [address] [address] PCP - General 01/16/24
--- OUTSIDE RECORDS SUMMARY | 2024-02-12 18:01 | XMS_ITS | Encounter Summary ---
Author Organization [facility] [place] Address [address] [place] [address] Care Team Providers Care Skull Splitter Name Role Phone Mary Ruggiero PA-C Primary Care Provider [phone] Robyn Keys APRN VENDING MACHINE COLLECTOR Unavailable (Fgs), [facility] - [facility] Unavailable Reason for Visit * Reason Comments Hospital F/U Encounter Details Date Type Department Care Team (Late st Contact Info) Description 01/30/2024 8:00 AM CDT Transitional Care Unit Visit [facility] [address] [place] [phone] 223 Feliberto Leigh MD [address] [place] [address] 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); Postoperative anemia; Benign prostatic hyperplasia with urinary retention; Brain aneurysm Social History Tobacco Use Types [...] Sign Reading Time Taken Comments Blood Pressure 126/67 01/30/2024 6:17 AM CDT Pulse 76 01/30/2024 6:17 AM CDT Temperature 37.1 ??C (98.7 ??F) 01/30/2024 6:17 AM CD T Respiratory Rate 18 01/30/2024 6:17 AM CDT Oxygen Saturation 98% 01/30/2024 6:17 AM CDT Inhaled Oxygen Concentration - - Weight 140.5 kg (309 lb 12.8 oz) 01/30/2024 6:17 AM CDT Height 182.9 cm (6') 01/30/2024 6:17 AM CDT Body Mass Index 42.02 01/30/2024 6:17 AM CDT documented in this encounter Progress Notes * Feliberto Leigh MD - 01/30/2024 8:00 AM CDT [facility] PRIMARY CARE PROVIDER AND CLINIC: Mary Ruggiero PA-C, [address] [place] [address] / [facility] [id number] Chief Complaint Patient presents with Hospital F/U [facility] of Service where encounter took place: [facility] ([facility]) Osvaldo Zuniga is a 68 year old (1955), admitted to the above facility from [facility]. Hospital stay 01/15/24 through 01/23/24.. Patient's past medical history of obesity, diabetes mellitus type 2, hypertension, lymphedema history of brain aneurysm on Plavix, hyperlipidemia, prostate cancer. Patient has a history of prosthetic right knee infection, status post right knee replacement 2019 and open knee arthrectomy and 2020. He presented to the [facility] with complaints of right knee pain, was diagnosed with septic arthritis, with a joint aspirate positive for staff aureus. And was transferred to [facility]. His course has been complicated by urinary retention with traumatic Crandall catheter insertion as well as OMAR. He ultimately underwent a revision right total knee arthroplasty with placement of an antibiotic spacer on 01/17/2024. He was seen by infectious disease, was discharged on Ancef for planned 6-week course, through 02/28/2024. Course complicated by acute kidney injury, urinary retention with bilateral renal hydronephrosis, traumatic catheterization, hypervolemia secondary to IV fluids to treat OMAR. Patient discharged with a Crandall catheter which should not be removed in the TCU secondary to difficulty with placement secondary to traumatic falls passage. Creatinine improved to baseline at the time of discharge. With regards to known brain aneurysm, patient has been scheduled for aneurysm clipping, will be rescheduled in the future by neurosurgery. Prior to admission Plavix is to be held until prior to eventual surgery per protocol Prior to admission lisinopril held, then resumed. Patient reports feeling improved. Right knee pain improving. He is ambulating with a walker. He is having regular bowel movements. Denies fevers, chills, nausea, vomiting, abdominal pain. He notes lower extremity edema bilaterally is at or close to baseline CODE STATUS/ADVANCE DIRECTIVES DISCUSSION: Full Code CPR/Full code ALLERGIES: Allergies Allergen Reactions Metformin Nausea PAST [...] drugs. Patient's living condition: lives with spouse Current medications were reviewed by me today Current Outpatient Medications Medication Sig Dispense Refill [...] calcitonin, salmon, (MIACALCIN) 200 UNIT/ACT nasal spray Berino 1 spray into one nostril alternatingnostrils daily [...] positives noted in my HPI. Vitals: BP 126/67 Pulse 76 Temp 98.7 ??F (37.1 ??C) Resp 18 Ht 1.829 m (6') Wt 140.5 kg (309 lb 12.8 oz) SpO2 98% BMI 42.02 kg/m?? Exam: Pleasant, pale appearing, obese male, sitting up in bed. He is very pleasant, fully oriented HEENT: Oral mucosa moist Lungs clear CV regular rate and rhythm without murmurs Abdomen soft, protuberant. Extremities: Hyperpigmentation both lower extremities. 1+ left calf edema 2+ right posterior calf and tibial edema No calf tenderness Occlusive dressing right knee Decreased sensation both feet Lab/Diagnostic data: Most Recent 3 CBC's: Recent Labs Lab Test 01/29/24 1451 01/24/24 0648 01/20/24 0633 01/19/24 0726 01/18/24 0734 01/17/24 0832 WBC -- 8.2 -- 6.0 -- 11.4* HGB 7.6* 7.9* 8.3* 7.5* < > 8.9* MCV -- 86 -- 82 -- 82 PLT -- 153 -- 135* -- 121* < > = values in this interval not displayed. Most Recent 3 BMP's: Recent Labs Lab Test 01/29/24 1451 01/24/24 0648 01/23/24 0527 01/22/24 0714 NA 143 -- 137 139 POTASSIUM 4.2 -- 4.1 3.9 CHLORIDE 104 -- 103 105 CO2 25 -- 27 27 BUN 14.9 -- 14.4 17.5 CR 0.77 0.86 0.94 1.07 ANIONGAP 14 -- 7 7 TOM 8.9 -- 8.5* 8.5* GLC 103* -- 118* 120* Most Recent 2 LFT's: Recent Labs Lab Test 01/29/24 1451 01/24/24 0648 01/16/24 0845 AST 28 20 19 ALT <5 -- 16 ALKPHOS 132 -- 122 BILITOTAL 0.6 -- 1.4* ASSESSMENT/PLAN: Prosthetic right knee infection with MSSA Patient is now status post revision right total knee arthroplasty with antibiotic spacer placement Pain control gradually improving Patient remains on Ancef for 6-week course Plan: Therapies. Pain control with oxycodone and Tylenol. Orthopedics and ID follow-up. Patient hopes to discharge to home in several days. 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 Lymphedema treatment. OMAR Secondary to urinary tension and possibly sepsis Resolved with IV fluids and Crandall catheter placement Plan: Monitor BMP Urinary retention, history of BPH and prostate cancer Status post traumatic Crandall catheter placement with false passage, necessitating complex Crandall placement by urology Plan: Continue Crandall catheter. Urology follow-up. Urology will have to remove Crandall catheter. Feliberto Leigh MD documented in this encounter Plan of Treatment Not on file documented as of this encounter Visit Diagnoses Diagnosis 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 Pyogenic arthritis, lower leg Postoperative anemia Anemia, unspecified Benign prostatic hyperplasia with urinary retention Brain aneurysm Cerebral aneurysm, nonruptured documented in this encounter Care Teams Skull Splitter Relationship Specialty Start Date End Date Mary Ruggiero PA-C [address] [place] [address] PCP - General 01/16/24 Robyn Keys APRN VENDING MACHINE COLLECTOR [address] [place] [address] Nurse Practitioner Family Medicine 01/24/24 02/03/24 (Fgs), [facility] Michell Ohara [address] [phone] 01/24/24 02/03/24 documented as of this encounter
--- OUTSIDE RECORDS SUMMARY | 2024-02-12 18:01 | XMS_ITS | Encounter Summary ---
Author Organization [facility] Address [facility] [place] [address] Care Team Providers Care Senior Process Control Tech Name Role Phone Mary Ruggiero PA-C Primary Care Provider [phone] Reason for Visit * Reason Comments Medication Refill Encounter Details Date Type Department Care Team (Late st Contact Info) Description 02/06/2024 Refill [facility] [address] [phone] Robyn Keys, CADWORX PIPING DESIGNER INFORMATION SECURITY OFFICER [address] [place] [address] Medication Refill Social History Tobacco Use Types Packs/Day Years [...] as of this encounter Visit Diagnoses Diagnosis S/P revision of total knee, right documented in this encounter Care Teams Senior Process Control Tech Relationship Specialty Start Date End Date Mary Ruggiero PA-C [address] [place] [address] PCP - General 01/16/24 documented as of this encounter
--- OUTSIDE RECORDS SUMMARY | 2024-02-12 18:01 | XMS_ITS | Encounter Summary ---
Author Organization [facility] Address [address] [place] [address] Care Team Providers Care Rv Repair Technician Name Role Phone Mary Ruggiero PA-C Primary Care Provider [phone] Robyn Keys APRN PICKED EDGE SEWING MACHINE OPERATOR Unavailable (Fgs), [facility] - [facility] Unavailable Encounter Details Date Type Department Care Team (Latest Contact Info) Description 01/29/2024 Travel Social History Tobacco Use Types Packs/Day [...] on filedocumented in this encounter Care Teams Rv Repair Technician Relationship Specialty Start Date End Date Mary Ruggiero PA-C [address] [place] [address] PCP - General 01/16/24 Robyn Keys APRN PICKED EDGE SEWING MACHINE OPERATOR [address] [place] [address] Nurse Practitioner Family Medicine 01/24/24 02/03/24 (Fgs), [facility] Michell Ohara [address] [phone] 01/24/24 02/03/24 documented as of this encounter
--- OUTSIDE RECORDS SUMMARY | 2024-02-12 18:01 | XMS_ITS | Encounter Summary ---
Author Organization [facility] Address [address] [place] [address] Care Team Providers Care Stock Chaser Name Role Phone Mary Ruggiero PA-C Primary Care Provider [phone] Robyn Keys APRN PSYCHIATRIC ASSISTANT Unavailable (Fgs), [facility] - [place] Unavailable Reason for Visit * Reason Comments RECHECK Encounter Details Date Type Department Care Team (Late st Contact Info) Description 01/29/2024 9:00 AM CDT Transitional Care Unit Visit [facility] [address] [place] [phone] Robyn Keys, FEI PSYCHIATRIC ASSISTANT [address] [place] [address] 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); S/P revision of total knee, right; Postoperative anemia; Benign prostatic hyperplasia with urinary retention; Lymphedema of both lower extremities Social History Tobacco Use Types Packs/Day Years [...] Sign Reading Time Taken Comments Blood Pressure 113/69 01/29/2024 8:47 AM CDT Pulse 88 01/29/2024 8:47 AM CDT Temperature 36.6 ??C (97.9 ??F) 01/29/2024 8:47 AM CD T Respiratory Rate 18 01/29/2024 8:47 AM CDT Oxygen Saturation 96% 01/29/2024 8:47 AM CDT Inhaled Oxygen Concentration - - Weight 140.6 kg (310 lb) 01/29/2024 8:47 AM CDT Height 182.9 cm (6') 01/29/2024 8:47 AM CDT Body Mass Index 42.04 01/29/2024 8:47 AM CDT documented in this encounter Progress Notes * Robyn Keys, FEI PSYCHIATRIC ASSISTANT - 01/29/2024 9:00 AM CDT [facility] Chief Complaint Patient presents with RECHECK HPI: Osvaldo Zuniga is a 68 year old (1955), who is being seen today for an episodic care visit at: [facility] ([facility]) [[id number]]. Today's concern is: During exam, patient seen sitting in wheelchair. Reports doing well, states pain to R knee improving. Has been participating in therapy. Ambulates w/walker. States appetite fair. Denies chest pain, SOB, headache, syncope. Allergies, and PMH/PSH reviewed in [facility] today. REVIEW OF SYSTEMS: 4 point ROS including Respiratory, CV, GI and , other than that noted in the HPI, is negative Objective: BP 113/69 Pulse 88 Temp 97.9 ??F (36.6 ??C) Resp 18 Ht 1.829 m (6') Wt 140.6 kg (310 lb) SpO2 96% BMI 42.04 kg/m?? GENERAL APPEARANCE: Alert, in no distress, [...] affect and mood normal Recent labs in [facility] reviewed by me today. Most [...] 8.5* 8.5* GLC 103* -- 118* 120* Assessment/Plan: (M00.061) Staphylococcal arthritis of right knee (H) (primary encounter diagnosis) (Z96.651) S/P revision of total knee, right Comment: Staph aureus R knee septic arthritis requiring s/p revision of R TKA with placement of antibiotic spacer on 01/17/24. Hx R knee replacement (08/2020), hx MSSA bacteremia with infected prosthetic knee joint s/p open knee arthrectomy in 11/2020. Plan: - Continue oxycodone PRN, tylenol TID, lyrica - Continue ASA 325mg every day for DVT prophylaxis - Remove postop dressing on 01/31/24 - Repeat XR R knee all views on 01/31/24 dx postop care - Patient to follow-up with Dr. Garcia (Ortho), and ID as directed - Continue PT, PT - SW following for discharge planning. Goal is to discharge home w/spouse. Spouse has assisted withIV antibiotic therapy at home in the past. (D64.9) Postoperative anemia Comment: Postop anemia secondary to staph aureus R knee septic arthritis requiring s/p revision of R TKA with placement of antibiotic spacer on 01/17/24. Hgb appears stable Plan: - Monitor Hgb (N40.1, R33.8) Benign prostatic hyperplasia with urinary retention Comment: Chronic BPH with recent urinary retention with subsequent OMAR; simmons catheter is new. Creat 4.49 on 01/14/24, bilateral kidney ultrasound found distended bladder and hydronephrosis. CT 01/14 found moderate bilateral hydronephrosis secondary to traumatic catheter placement. Urology consulted , s/p cystoscopy with complex simmons placement with Dr. Woods. Plan: - Monitor output - Reviewed patient status and treatment plan with Rosibel (spouse) (I89.0) Lymphedema of both lower extremities Comment: Chronic BLE lymphedema. 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 Plan: - Therapy to eval/treat BLE lymphedema - Continue lasix, potassium chloride Orders: - Therapy to eval/treat edema Electronically signed by: Robyn Keys APRN CNP documented in this encounter Plan of Treatment Not on file documented as of this encounter Visit Diagnoses Diagnosis 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 Pyogenic arthritis, lower leg S/P revision of total knee, right Postoperative anemia Anemia, unspecified Benign prostatic hyperplasia with urinary retention Lymphedema of both lower extremities documented in this encounter Care Teams Stock Chaser Relationship Specialty Start Date End Date Mary Ruggiero PA-C [address] [place] [address] PCP - General 01/16/24 Robyn Keys APRN PSYCHIATRIC ASSISTANT [address] [place] [address] Nurse Practitioner Family Medicine 01/24/24 02/03/24 (Fgs), [facility] Michell Ohara [address] [place] [phone] 01/24/24 02/03/24 documented as of this encounter
--- OUTSIDE RECORDS SUMMARY | 2024-02-12 18:01 | XMS_ITS | Encounter Summary ---
Author Organization [facility] Address [address] [place] [address] Care Team Providers Care Crib Attendant Name Role Phone Mary Ruggiero PA-C Primary Care Provider [phone] Robyn Keys APRN PMO MANAGER Unavailable (Fgs), [facility] - [facility] Unavailable Reason for Visit * Reason Onset Date Comments Appointment 01/31/2024 Encounter Details Date Type Department Care Team (Late st Contact Info) Description 01/31/2024 Telephone [facility] [address] [place] [phone] None Appointment Social History Tobacco Use Types Packs/Day Years [...] on file documented as of this encounter Miscellaneous Notes * Telephone Encounter - Swetha Carrillo - 01/31/2024 4:46 PM CDT Spoke to pt's , Rosibel, and told her to call [facility] because pt was seen by them yesterday. * Telephone Encounter - Aaliyah Leiva 01/31/2024 7:51 AM CDT [facility] Phone Message May a detailed message be left on voicemail: yes Reason for Call: Other: Spouse, Rosibel, calls to schedule new patient appointment for BPH with retention. Patient has new simmons catheter due to the retention. Sending TE per protocol. Spouse prefers Monday appointment if possible. Please call spouse to schedule. Action Taken: Message routed to: Other: Urology Travel Screening: Not Applicable documented in this encounter Plan of Treatment Not on file documented as of this encounter Visit Diagnoses Not on filedocumented in this encounter Care Teams Crib Attendant Relationship Specialty Start Date End Date Mary Ruggiero PA-C [address] [place] [address] PCP - General 01/16/24 Robyn Keys APRN PMO MANAGER [address] [place] [address] Nurse Practitioner Family Medicine 01/24/24 02/03/24 (Fgs), [facility] [place] [address] [place] [phone] 01/24/24 02/03/24 documented as of this encounter
--- OUTSIDE RECORDS SUMMARY | 2024-02-12 18:01 | XMS_ITS | Encounter Summary ---
Author Organization [facility] Address [address] [place] [address] Care Team Providers Care White Goods Appliance Tech Name Role Phone Mary Ruggiero PA-C Primary Care Provider [phone] Robyn Keys APRN CUSTOMER ENGAGEMENT SPECIALIST Unavailable (Fgs), [facility] - [facility] Unavailable Reason for Visit * Reason Comments Medication Refill Encounter Details Date Type Department Care Team (Late st Contact Info) Description 02/02/2024 Refill [facility] [address] [place] [phone] Robyn Keys, FEI CUSTOMER ENGAGEMENT SPECIALIST [address] [place] [address] Medication Refill Social History Tobacco Use Types [...] Visit Diagnoses Diagnosis Lymphedema of both lower extremities Benign prostatic hyperplasia with urinary retention documented in this encounter Care Teams White Goods Appliance Tech Relationship Specialty Start Date End Date Mary [place]uggiero [place] [address] PCP - General 01/16/24 Robyn Keys APRN CUSTOMER ENGAGEMENT SPECIALIST [address] [place] [address] Nurse Practitioner Family Medicine 01/24/24 02/03/24 (Fgs), [facility] Michell Ohara [address] [place] [phone] 01/24/24 02/03/24 documented as of this encounter
--- OUTSIDE RECORDS SUMMARY | 2024-02-12 18:02 | XMS_ITS | Encounter Summary ---
Author Organization [place] Address [facility] [place] [address] Care Team Providers Care Record Librarian Name Role Phone No Ref-Primary, Physician Primary Care Provider Mary Ruggiero PA-C Primary Care Provider [phone] Reason for Visit * Auth/Cert (Routine) Specialty Diagnoses / Procedures Referred By Britt barber Referred To Contact Med Surg Diagnoses Septic athritis of prosthetic joint Septic joint (H) [facility] [address] [id number] Referral ID Status Reason Start Date Expiration Date Visits Re quested Visits Authorized [id number] 1 1 Encounter Details Date Type Department Care Team (Late st Contact Info) Description 01/15/2024 8:33 PM CDT - 01/23/2024 11:21 AM CDT Hospital Encounter [facility] [address] [phone] Haseeb Barboza MD [address] [id number] Karlie Rosenthal MD [address] [id number] Jason Walker MD [address] [id number] Arik Ordoñez MD [address] [id number] 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); Infection of total right knee replacement, initial encounter (H24) Discharge Disposition: Assisted Facility Social History Tobacco Use Types Packs/Day Years [...] Sign Reading Time Taken Comments Blood Pressure 142/65 01/23/2024 7:26 AM CDT Pulse 75 01/23/2024 7:26 AM CDT Temperature 36.8 ??C (98.2 ??F) 01/23/2024 7:26 AM CD T Respiratory Rate 18 01/23/2024 7:26 AM CDT Oxygen Saturation 95% 01/23/2024 7:26 AM CDT Inhaled Oxygen Concentration - - Weight 142.2 kg (313 lb 6.4 oz) 01/20/2024 8:19 PM CDT Height 182.9 cm (6') 01/16/2024 5:32 AM CDT Body Mass Index 42.5 01/16/2024 5:32 AM CDT documented in this encounter Discharge Summaries * Arik Ordoñez MD - 01/23/2024 8:24 AM CDT Images from the original note were not included. [facility] Hospitalist Discharge Summary Date of Admission: 01/15/2024 Date of Discharge: 01/23/2024 Discharging Provider: Arik Ordoñez MD Discharge Service: Hospitalist Service Discharge Diagnoses Right knee septic arthritis due Staphylococcus aureus status post revision of total knee arthroplasty and placement of antibiotic spacer 01/17/2024 Acute postoperative anemia Acute kidney injury Urinary retention with bilateral renal hydronephrosis Traumatic urinary catheterization with gas and fluid in the prostate Hypervolemia due to intravenous fluid History of Right total knee arthroplasty 2019 Right knee infection 2020 Brain aneurysm, scheduled for clipping Hypertension Depression and anxiety Chronic lymphedema Chronic normocytic anemia Gastroesophageal reflux disease Hyperlipidemia Obstructive sleep apnea History of prostate cancer Thrombocytopenia Neurodermatitis Obesity BMI > 40 Clinically Significant Risk Factors # Severe Obesity: Estimated body mass index is 42.5 kg/m?? as calculated from the following: Height as of this encounter: 1.829 m (6'). Weight as of this encounter: 142.2 kg (313 lb 6.4 oz). Follow-ups Needed After Discharge Follow-up Appointments Follow Up ([facility]) Please call your urology team at [facility] to arrange for follow up appointment in 2-4 weeks. Your catheter should be removed or exchanged by urology no later than 02/20/24. Follow Up and recommended labs and tests Please call as soon as possible to make an appointment to be seen in Dr. Caleb Garcia's clinic at 2 weeks postop for a recheck of your surgical site, possible repeat x-rays, and wound care. If you are at a TCU at this time and they have x-ray capabilities, you may complete your wound care and x-rays at your TCU and have them send your images to Dr. Garcia's office. Infectious Disease should call [facility] to arrange follow up in 3 weeks after discharge. (Please provide [facility] with the number to their clinic.) Dr. Garcia's director of home care hospice is Laurie Hernandes. Please contact her at [phone] to schedule an appointment[address] Dr. Garcia sees patients at 2 clinic locations: [facility] [address] [place] [address] [facility] [place] [address], [address], [place] [address] Please call the on-call phone number [phone] during evenings, nights and weekends for any urgent needs. Prescription refills must be done during business hours by calling [phone]. Follow Up and recommended labs and tests Follow up with [facility] physician. The following labs/tests are recommended: weekly complete blood count, C-reactive protein, complete metabolic profile weekly starting 01/24 and ending 02/21. Follow up with orthopedics and infectious disease as scheduled. Follow up in urology clinic in 2 weeks. Unresulted Labs Ordered in the Past 30 Days of this Admission Date and Time Order Name Status Description 01/17/2024 6:42 PM Anaerobic Bacterial Culture Routine Preliminary 01/17/2024 6:42 PM Anaerobic Bacterial Culture Routine Preliminary 01/17/2024 6:42 PM Anaerobic Bacterial Culture Routine Preliminary 01/17/2024 6:42 PM Anaerobic Bacterial Culture Routine Preliminary 01/17/2024 6:42 PM Anaerobic Bacterial Culture Routine Preliminary 01/17/2024 6:42 PM Anaerobic Bacterial Culture Routine Preliminary These results will be followed up by infectious disease and orthopedist Discharge Disposition Discharged to short-term care facility Condition at discharge: Stable Hospital Course [facility] Zuniga is a 68 year old male with past medical history significant for obesity, type 2 diabetes mellitus, essential hypertension, depression, anxiety, prostate cancer, incidental finding of brain aneurysm on Plavix and hyperlipidemia who was admitted to [facility] to the concern for right knee pain. Patient was later diagnosed with septic arthritis and is transferred to [facility] for orthopedic surgery evaluation and possible surgical intervention. Patient was started on IV vancomycin and had traumatic Crandall catheter insertion for urinary retention, patient has also developed OMAR in the past 24 hours before transfer. Patient has undergone right knee replacement in August 2020. [facility], with MSSA bacteremia. Underwent open knee arthrectomy. Discharged with cefazolin/rifampin for 6 weeks with ID follow-up. On 01/13/24 he woke up with the right knee swollen painful and from and difficulty walking and presented to outside facility where right knee showed a small effusion. WBC count was 9.1 with absolute neutrophil count of 7.8, elevated CRP of 17.8, patient underwent joint aspiration in ED which started to grow Staph aureus with nucleated cells of 118, 000 71% neutrophil counts. Patient was a startedon vancomycin and ceftriaxone. Patient transferred to [facility] for further surgical intervention. Staph aureus right knee septic arthritis: S/p right revision total knee arthroplasty with placement of antibiotic spacer on 01/16 Routine post-operative care, including pain mgt, activity, diet, and DVT prophylaxis, per surgical team. ASA 325 mg for DVT ppx Hemovac drain removed on 01/21/24 Keep dressing intact change if greater than 60% saturated or peeling off Follow-up with Dr. Francois 2 weeks postop Oxycodone for pain control, 5 mg x 2 yesterday, 10 mg today. Continue TOE FORMER STITCHDOWNS Lyrica 75 mg p.o. twice daily. On Ancef per ID. Cultures from knee aspirate at outside hospital and OR growing MSSA IV antibiotics for 6 weeks (last day of therapy 02/28/2024) PICC line ordered by ID IV antibiotic at discharge ordered by ID ID follow-up will be arranged in 3 weeks Continue to advise not to pick his skin and wounds as this will increase risk of infection Hold TOE FORMER STITCHDOWNS clobetasol ointment Chronic normocytic anemia ~ 10.5 Acute post-op anemia Asymptomatic, hemodynamically stable. Acute kidney injury, RESOLVED Urinary retention with bilateral renal hydronephrosis Traumatic catheterization with gas and fluid in the prostate Hypervolemia following MOAR with IVF * Baseline Cr 1 at admission to outside hospital on 01/13 >> 4.49 at outside hospital. Ultrasound of bilateral kidneys showed distended bladder and hydronephrosis Crandall catheter placed with poorUOP, subsequently discovered he traumatic crandall placement. * CT on 01/14: Moderate bilateral hydronephrosis no obstructing stones. Gas and fluid in the prostate gland. May be secondary to traumatic catheter placement, abscess not ruled out. Small amount of gas in the bladder likely related to catheterization. Had hematuria secondary to crandall catheter trauma Appreciate Urology consult on 01/16/24 Cystoscopy with complex crandall placement over wire performed at bedside with Dr Woods. Finding of large traumatic false passage. 16F [place] tip crandall placed over wire with cystoscopic guidance for return of about 400cc clear yellow/sandrita urine. Patient tolerated procedure well.CONTINUE CURRENT CRANDALL, DO NOT REMOVE.Will need to follow up with urology for TOV in 2-5 weeks. Appreciate Care by Marilyn Cullen PA-C, on 01/[address] 01/20/24 AM to assess prostate: Shows decrease in gas and fluid in the prostate. Patienthas no bladder, perineal or lower abdominal pain, or fever to suggest abscess. Therefore, suspect secondary to trauma. Patient will call primary urology team to schedule follow-up in 2 to 4 weeks Small amount of bleeding around Crandall catheter after placement, resolved on 01/21/24 Stopped IVF on 01/19/24 Strict UOP, daily weights (discussed with nursing) Wt up, Cr back to baseline on 01/21/24 Resumed TOE FORMER STITCHDOWNS lisinopril, on 01/21/24 Holding PO furosemide 40 mg daily > Give lasix 40 mg IV x 2 on 01/21/24 for weight gain of 10 pounds, swelling Give K 20 meq x 1, will recheck if significant UOP. BMP in AM Holding Celebrex, but can be resumed if needed for pain. Chronic lymphedema Patient is morbidly obese and venous insufficiency, including stasis pigmentary changes, hair loss,numerous healed scabs in his extremities Follows with vascular medicine as outpatient His wounds will provide ongoing portals of entry for infection in the future. GERD Continue famotidine 10 mg daily twice daily, TOE FORMER STITCHDOWNS doses as needed History of depression and anxiety: Continue TOE FORMER STITCHDOWNS duloxetine 120 mg p.o. daily Continue TOE FORMER STITCHDOWNS mirtazapine 30 mg at bedtime Essential hypertension: Resumed TOE FORMER STITCHDOWNS lisinopril and furosemide on 01/21/24 as above. (holding in the context of OMAR) Known brain aneurysm, scheduled for clipping on 01/14. Per clinic note with Dr.Kayan Amaya on 12/03: patient was started on ASA and Plavix to prevent stroke around procedure: Per telephone encounter on 01/14 after he was admitted they recommend he stop Plavix and restart protocol when he gets rescheduled for aneurysm clipping. Other chronic medical conditions Hyperlipidemia Obstructive sleep apnea History of prostate cancer Thrombocytopenia - plts stable around 135. 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 Consultations This Hospital Stay ORTHOPEDIC SURGERY IP CONSULT UROLOGY IP CONSULT PHYSICAL THERAPY ADULT IP CONSULT OCCUPATIONAL THERAPY ADULT IP CONSULT CARE MANAGEMENT / SOCIAL WORK IP CONSULT INFECTIOUS DISEASES IP CONSULT CARE MANAGEMENT / SOCIAL WORK IP CONSULT PHYSICAL THERAPY ADULT IP CONSULT OCCUPATIONAL THERAPY ADULT IP CONSULT VASCULAR ACCESS ADULT IP CONSULT PHYSICAL THERAPY ADULT IP CONSULT OCCUPATIONAL THERAPY ADULT IP CONSULT PHYSICAL THERAPY ADULT IP CONSULT OCCUPATIONAL THERAPY ADULT IP CONSULT WOUND OSTOMY CONTINENCE NURSE IP CONSULT Code Status Full Code Time Spent on this Encounter IArik MD, personally saw the patient today and spent greater than 30 minutes discharging this patient. Arik Ordoñez MD [facility] [address] [facility] [id number] Physical Exam Vital Signs: Temp: 98.2 ??F (36.8 ??C) Temp src: Oral BP: (!) 142/65 Pulse: 75 Resp: 18 SpO2: 95 % O2 Device: None (Room air) Weight: 313 lbs 6.4 oz Awake, alert and oriented Right nee is wrapped Primary Care Physician Mary Ruggiero Discharge Orders Follow Up ([facility]) Please call your urology team at [facility] to arrange for follow up appointment in 2-4 weeks. Your catheter should be removed or exchanged by urology no later than 02/20/24. General info for SNF Length of Stay Estimate: Short Term Care: Estimated # of Days <30 Condition at Discharge: Stable Level of care:skilled Rehabilitation Potential: Fair Admission H&P remains valid and up-to-date: Yes Recent Chemotherapy: N/A Use Halfway Standing Orders: Yes Reason for your hospital stay S/p right revision TKA with placement of antibiotic spacer (DOS: 01/17/24) with Dr. Caleb Garcia Wound care Site: Right knee Instructions: Please leave dressing intact for 2 weeks postoperatively. Okay to change if saturated>60% or peeling. If an Aquacel or gauze/tegaderm is in place over your surgical sites, it is okay to shower without covering the dressings. If you have a soft dressing, you must securely cover your dressing while showering or sponge bathe. Absolutely no soaking or submersion. Please contact yourorthopedic surgical team if persistent drainage or redness develops around the surgical site. Additional Discharge Instructions Pain after surgery is normal and expected. You will have some amount of pain and swelling for several weeks after surgery. These symptoms will improve with time. There are several things you can do to help reduce your pain including: rest, cold compresses, elevation, and using pain medications as needed. Contact your Surgeon Team if you have pain that persists or worsens after surgery despite rest, ice, elevation, and taking your medication(s) as prescribed. Contact your Surgeon Team if you have new numbness, tingling, or weakness in your operative extremity. Swelling and/or bruising of the surgical extremity is common and may persist for several months after surgery. In addition to frequent icing and elevation, gentle compressive support with an SILVESTRE wrapor tubigrip may help with swelling. Apply compression regularly, removing at least twice daily to perform skin checks. Contact your Surgeon Team if your swelling increases and is NOT associated with an increase in your activity level, or if your swelling increases and is associated with redness andpain. Ice can be used to control swelling and discomfort after surgery. Place a thin towel over your operative site and apply the ice pack overtop. Leave ice pack in place for 20 minutes, then remove for 20 minutes. Repeat this 20 minutes on/20 minutes off routine as often as tolerated. Please contact your surgical team with any concerns for infection including increasing redness around your surgical site, pus-like drainage, fever, chills, or flu-like symptoms. Activity - Up with assistive device Activity - Up with nursing assistance Weight bearing status WBAT RLE with walker Follow Up and recommended labs and tests Please call as soon as possible to make an appointment to be seen in Dr. Caleb Garcia's clinic at 2 weeks postop for a recheck of your surgical site, possible repeat x-rays, and wound care. If you are at a TCU at this time and they have x- ray capabilities, you may complete your wound care and x-rays at your TCU and have them send your images to Dr. Garcia's office. Infectious Disease should call [facility] to arrange follow up in 3 weeks after discharge. (Please provide [facility] with the number to their clinic.) Dr. Garcia's director of home care hospice is Laurie Hernandes. Please contact her at [phone] to schedule an appointment. Dr. Garcia sees patients at 2 clinic locations: [facility] [address] [place] [address] [facility] [address], [place] [address] Please call the on-call phone number [phone] during evenings, nights and weekends for any urgent needs. Prescription refills must be done during business hours by calling [phone]. Mantoux instructions Give two-step Mantoux (PPD) Per Facility Policy Yes Crandall catheter To straight gravity drainage. Change catheter every 2 weeks and PRN for leaking or decreased urine output with signs of bladder distention. DO NOT change catheter without a specific Provider order IFdiagnosis of benign prostatic hypertrophy (BPH), neurogenic bladder, or other urological conditions Additional Discharge Instructions Remove peripherally inserted central catheter line after completion of antibiotics IV access Left upper extremity peripherally inserted central catheter Follow Up and recommended labs and tests Follow up with [facility] physician. The following labs/tests are recommended: weekly complete blood count, C-reactive protein, complete metabolic profile weekly starting 01/24 and ending 02/21. Followup with orthopedics and infectious disease as scheduled. Follow up in urology clinic in 2 weeks. Full Code Physical Therapy Adult Consult Evaluate and treat as clinically indicated. Reason: S/p right revision TKA with placement of antibiotic spacer (DOS: 01/17/24) with Dr. Caleb Garcia Occupational Therapy Adult Consult Evaluate and treat as clinically indicated. Reason: S/p right revision TKA with placement of antibiotic spacer (DOS: 01/17/24) with Dr. Caleb Garcia Fall precautions Diet Follow this diet upon discharge: Regular Diet Adult Significant Results and Procedures Most Recent 3 CBC's: Recent Labs Lab Test 01/20/24 0633 01/19/24 0726 01/18/24 0734 01/17/24 0832 01/16/24 0845 WBC -- 6.0 -- 11.4* 12.0* HGB 8.3* 7.5* 7.7* 8.9* 9.2* MCV -- 82 -- 82 84 PLT -- 135* -- 121* 97* Most Recent 3 BMP's: Recent Labs Lab Test 01/23/24 0527 01/22/24 0714 01/22/24 0225 01/21/24 2104 01/21/24 0556 NA 137 139 -- -- 140 POTASSIUM 4.1 3.9 3.6 < > 3.6 CHLORIDE 103 105 -- -- 107 CO2 27 27 -- -- 23 BUN 14.4 17.5 -- -- 23.0 CR 0.94 1.07 -- -- 1.10 ANIONGAP 7 7 -- -- 10 TOM 8.5* 8.5* -- -- 8.6* GLC 118* 120* -- -- 125* < > = values in this interval not displayed. Most Recent 2 LFT's: Recent Labs Lab Test 01/16/24 0845 AST 19 ALT 16 ALKPHOS 122 BILITOTAL 1.4* 7-Day Micro Results Collected Updated Procedure Result Status 01/17/2024184101/22/2024 2246 Anaerobic Bacterial Culture Routine [[id number]] Tissue from Knee, Right Preliminary result Component Value Culture No anaerobic organisms isolated after 5 days [P] 01/17/2024184101/22/2024 2231 Anaerobic Bacterial Culture Routine [[id number]] Synovial fluid from Knee, Right Preliminary result Component Value Culture No anaerobic organisms isolated after 5 days [P] 01/17/2024184101/20/2024 0253 Tissue Aerobic Bacterial Culture Routine [[id number]] (Abnormal) Tissue from Knee, Right Final result Component Value Culture 1+ Staphylococcus aureus Susceptibility Staphylococcus aureus ALEXANDRE Clindamycin Resistant [1] Daptomycin 0.25 ug/mL Susceptible Doxycycline <=0.5 ug/mL Susceptible Erythromycin >=8 ug/mL Resistant Gentamicin <=0.5 ug/mL Susceptible Oxacillin <=0.25 ug/mL Susceptible [2] Tetracycline <=1 ug/mL Susceptible Trimethoprim/Sulfamethoxazole <=0.5/9.5 ug/mL Susceptible Vancomycin 1 ug/mL Susceptible [1] This isolate is presumed to be clindamycin resistant based on detection of inducible clindamycin resistance. Erythromycin and clindamycin are resistant; therefore, they are not recommended for use. [2] Oxacillin susceptible isolates are susceptible to cephalosporins (example: cefazolin and cephalexin) and beta lactam combination agents. Oxacillin resistant isolates are resistant to these agents. 01/17/2024184101/22/2024 1135 Synovial fluid Aerobic Bacterial Culture Routine [[id number]] (Abnormal) Synovial fluid from Knee, Right Final result Component Value Culture 1+ Staphylococcus aureus Susceptibility Staphylococcus aureus ALEXANDRE Clindamycin Resistant [1] Daptomycin 0.5 ug/mL Susceptible Doxycycline <=0.5 ug/mL Susceptible Erythromycin >=8 ug/mL Resistant Gentamicin <=0.5 ug/mL Susceptible Oxacillin <=0.25 ug/mL Susceptible [2] Tetracycline <=1 ug/mL Susceptible Trimethoprim/Sulfamethoxazole <=0.5/9.5 ug/mL Susceptible Vancomycin 1 ug/mL Susceptible [1] This isolate is presumed to be clindamycin resistant based on detection of inducible clindamycin resistance. Erythromycin and clindamycin are resistant; therefore, they are not recommended for use. [2] Oxacillin susceptible isolates are susceptible to cephalosporins (example: cefazolin and cephalexin) and beta lactam combination agents. Oxacillin resistant isolates are resistant to these agents. 01/17/2024184001/22/2024 2246 Anaerobic Bacterial Culture Routine [[id number]] Tissue from Knee, Right Preliminary result Component Value Culture No anaerobic organisms isolated after 5 days [P] 01/17/2024184001/22/2024 2231 Anaerobic Bacterial Culture Routine [[id number]] Tissue from Knee, Right Preliminary result Component Value Culture No anaerobic organisms isolated after 5 days [P] 01/17/2024 18401/22/2024 2316 Anaerobic Bacterial Culture Routine [[id number]] Tissue from Knee, Right Preliminary result Component Value Culture No anaerobic organisms isolated after 5 days [P] 01/17/2024 18401/22/2024 2302 Anaerobic Bacterial Culture Routine [[id number]] Tissue from Knee, Right Preliminary result Component Value Culture No anaerobic organisms isolated after 5 days [P] 01/17/2024 18401/22/2024 0743 Tissue Aerobic Bacterial Culture Routine [[id number]] (Abnormal) Tissue from Knee, Right Final result Component Value Culture 1+ Staphylococcus aureus Susceptibilities done on previous cultures 01/17/2024184001/22/2024 0742 Tissue Aerobic Bacterial Culture Routine [[id number]] (Abnormal) Tissue from Knee, Right Final result Component Value Culture 1+ Staphylococcus aureus Susceptibilities done on previous cultures 01/17/2024184001/22/2024 0742 Tissue Aerobic Bacterial Culture Routine [[id number]] (Abnormal) Tissue from Knee, Right Final result Component Value Culture 1+ Staphylococcus aureus Susceptibilities done on previous cultures 01/17/2024 18401/22/2024 0724 Tissue Aerobic Bacterial Culture Routine [[id number]] Tissue from Knee, Right Final result Component Value Culture No Growth 01/16/2024 1640 01/18/2024 0716 Urine Culture [[id number]] Urine, Crandall Catheter Final result Component Value Culture No Growth 01/16/2024 1409 01/21/2024 1731 Blood Culture Hand, Left [[id number]] Blood from Hand, Left Final result Component Value Culture No Growth 01/16/2024 1400 01/21/2024 1731 Blood Culture Hand, Left [[id number]] Blood from Hand, Left Final result Component Value Culture No Growth 01/16/2024 1037 01/16/2024 1432 MRSA MSSA PCR, Nasal Swab [[id number]] Swab from Nares, Bilateral Final result Component Value MRSA Target DNA Negative SA Target DNA Positive , Results for orders placed or performed during the hospital encounter of 01/15/24 CT Abdomen Pelvis w/o Contrast Narrative CT ABDOMEN AND PELVIS WITHOUT CONTRAST 01/16/2024 11:25 AM CLINICAL HISTORY: Hydronephrosis. TECHNIQUE: CT scan of the abdomen and pelvis was performed without IV contrast. Multiplanar reformats were obtained. Dose reduction techniques were used. CONTRAST: None. COMPARISON: None. FINDINGS: LOWER CHEST: Small bilateral pleural effusions. HEPATOBILIARY: Normal. PANCREAS: Normal. SPLEEN: Splenomegaly. ADRENAL GLANDS: Normal. KIDNEYS/BLADDER: Moderate bilateral hydronephrosis. No obstructing stones. There is gas in the bladder. Mild diffuse bladder wall thickening. BOWEL: Normal. LYMPH NODES: Normal. VASCULATURE: Mild to moderate atherosclerotic calcification. PELVIC ORGANS: There is gas and fluid in the posterior and right side of the prostate gland. OTHER: None. MUSCULOSKELETAL: Normal. Impression IMPRESSION: 1. Moderate bilateral hydroureteronephrosis. No obstructing stones. 2. Gas and fluid in the prostate gland. Noted history of traumatic catheter placement. This may be secondary to this, or a prostatic abscess. 3. Small amount of gas in the bladder should be related to previous catheterization. JASMIN ESPINOSA MD XR Knee Port Right 1/2 Views Narrative EXAM: XR KNEE PORT RIGHT 1/2 VIEWS LOCATION: [facility] DATE: 01/17/2024 INDICATION: Post Op Total Knee COMPARISON: None. Impression IMPRESSION: Postoperative changes of a revision right total knee arthroplasty with antibiotic spacer placement. No evidence of immediate hardware complication. Expected soft tissue edema and scattered foci of gas. Surgical drain in place. XR Chest Port 1 View Narrative CHEST ONE VIEW 01/19/2024 2:12 PM HISTORY: RN placed PICC - verify tip placement. COMPARISON: None available. Impression IMPRESSION: Right PICC tip at the mid SVC approximately 6 cm from the cavoatrial junction. Right lung and visualized left lung proctor are clear. Grossly unremarkable cardiomediastinal silhouette. SVITLANA ASCENCIO MD SYSTEM ID: [id number] CT Abdomen Pelvis w/o Contrast Narrative EXAM: CT ABDOMEN AND PELVIS WITHOUT CONTRAST LOCATION: [facility] DATE: 01/20/2024 INDICATION: Following for hydronephrosis, [...] gas is almost completely resolved. MUSCULOSKELETAL: Normal. Impression IMPRESSION: 1. Decrease in the gas and fluid in the prostate as compared to the previous examination consistentwith improving abscess. 2. No hydronephrosis in either kidney on examination today. Crandall catheter in good position and thebladder is decompressed. 3. Small amount of abdominal ascites. Discharge Medications Current Discharge Medication List START taking these medications Details acetaminophen (TYLENOL) 325 MG tablet Take 3 tablets (975 mg) by mouth every 8 hours Associated Diagnoses: Staphylococcal arthritis of right knee (H); Infection of total right knee replacement, initial encounter (H24) aspirin (ASA) 325 MG EC tablet Take 1 tablet (325 mg) by mouth daily for 42 days Associated Diagnoses: Staphylococcal arthritis of right knee (H); Infection of total right knee replacement, initial encounter (H24) ceFAZolin (ANCEF) intermittent infusion 2 g in 100 mL dextrose PRE-MIX Inject 100 mLs (2 g) into the vein every 8 hours for 40 days Please draw CBC with diff, creatinine, AST, and CRP weekly and fax results to [facility]. Associated Diagnoses: Staphylococcal arthritis of right knee (H); Infection of total right knee replacement, initial encounter (H24) polyethylene glycol (MIRALAX) 17 GM/Dose powder Take 17 g by mouth daily Associated Diagnoses: Staphylococcal arthritis of right knee (H); Infection of total right knee replacement, initial encounter (H24) senna-docusate (SENOKOT-S/PERICOLACE) 8.6-50 MG tablet Take 1 tablet by mouth 2 times daily as needed for constipation Associated Diagnoses: Staphylococcal arthritis of right knee (H); Infection of total right knee replacement, initial encounter (H24) CONTINUE these medications which have CHANGED Details oxyCODONE (ROXICODONE) 5 MG tablet Take 1 tablet (5 mg) by mouth every 4 hours as needed for severepain Qty: 25 tablet, Refills: 0 Associated Diagnoses: Staphylococcal arthritis of right knee (H); Infection of total right knee replacement, initial encounter (H24) CONTINUE these medications which have NOT CHANGED Details alendronate (FOSAMAX) 70 MG tablet Take 70 mg by mouth every 7 days atorvastatin (LIPITOR) 10 MG tablet Take 10 mg by mouth daily calcitonin, salmon, (MIACALCIN) 200 UNIT/ACT nasal spray Maury 1 spray into one nostril alternatingnostrils daily Alternate nostril each day. celecoxib (CELEBREX) 200 MG capsule Take 200 [...] tablet Take 1 tablet by mouth daily pregabalin (LYRICA) 75 MG capsule Take 75 mg by mouth 2 times daily tamsulosin (FLOMAX) 0.4 MG capsule Take 0.8 [...] daily zolpidem (AMBIEN) 10 MG tablet Take 10 mg by mouth nightly as needed for sleep STOP taking these medications furosemide (LASIX) 40 MG tablet Comments: Reason for Stopping: Allergies Allergies Allergen Reactions Metformin Nausea documented in this encounter Medications at Time of Discharge Medication Sig Dispensed Refills Start Date End Date acetaminophen (TYLENOL) 325 MG tabletIndications:Stap hylococcal arthritis of right knee (H),Infection of total right knee replacement, initial encounter (H24) Take 3 tablets (975 mg) by mouth every 8 hours 01/19/2024 ceFAZolin (ANCEF) intermittent infusion 2 g in 100 mL dextrose PRE-MIXIndications:Bon e and/or Joint Infection Inject 100 mLs (2 g) into the vein every 8 hours for 40 days Please draw CBC with diff, creatinine, AST, and CRP weekly and fax results to [facility]. 01/19/2024 02/28/2024 celecoxib (CELEBREX) 200 MG capsule Take 200 mg by mouth 2 times daily as needed for moderate pain clobetasol (TEMOVATE) 0.05 % external ointment Apply topically 2 times daily famotidine (PEPCID) 10 MG tablet Take 10 mg by mouth 2 times daily as needed (stomach upset while on clopidogrel) hydrOXYzine HCl (ATARAX) 25 MG tablet Take 50 mg by mouth every 6 hours as needed for itching multivitamin, therapeutic (THERA-VIT) TABS tablet Take 1 tablet by mouth daily senna-docusate (SENOKOT-S/PERICOLACE) 8.6-50 MG tabletIndications:Stap hylococcal arthritis of right knee (H),Infection of total right knee replacement, initial encounter (H24) Take 1 tablet by mouth 2 times daily as needed for constipation 01/19/2024 Vitamin D3 (VITAMIN D, CHOLECALCIFEROL,) 25 mcg (1000 units) tablet Take 25 mcg by mouth daily vitamin E (TOCOPHEROL) 1000 units (450 mg) CAPS capsule Take 1,000 Units by mouth daily alendronate (FOSAMAX) 70 MG tablet Take 70 mg by mouth every 7 days 02/02/2024 aspirin (ASA) 325 MG EC tabletIndications:VTE Prophylaxis Take 1 tablet (325 mg) by mouth daily for 42 days 01/20/2024 02/02/2024 atorvastatin (LIPITOR) 10 MG tablet Take 10 mg by mouth daily 02/02/2024 calcitonin, salmon, (MIACALCIN) 200 UNIT/ACT nasal spray Maury 1 spray into one nostril alternating nostrils daily Alternate nostril each day. 02/02/2024 clopidogrel (PLAVIX) 75 MG tablet Take 75 mg by mouth daily 01/26/2024 DULoxetine (CYMBALTA) 60 MG capsule Take 120 mg by mouth daily 02/02/2024 ferrous sulfate (FE TABS) 325 (65 Fe) MG EC tablet Take 325 mg by mouth daily 02/02/2024 lisinopril (ZESTRIL) 20 MG tablet Take 20 mg by mouth daily 02/02/2024 mirtazapine (REMERON) 30 MG tablet Take 15 mg by mouth at bedtime 02/02/2024 oxyCODONE (ROXICODONE) 5 MG tabletIndications:Stap hylococcal arthritis of right knee (H),Infection of total right knee replacement, initial encounter (H24) Take 1 tablet (5 mg) by mouth every 4 hours as needed for severe pain 25 tablet 01/19/2024 01/26/2024 polyethylene glycol (MIRALAX) 17 GM/Dose powderIndications:Stap hylococcal arthritis of right knee (H),Infection of total right knee replacement, initial encounter (H24) Take 17 g by mouth daily 01/19/2024 01/25/2024 tamsulosin (FLOMAX) 0.4 MG capsule Take 0.8 mg by mouth daily 02/02/2024 tiZANidine (ZANAFLEX) 4 MG tablet Take 4 mg by mouth every 6 hours as needed for muscle spasms 02/02/2024 documented as of this encounter Progress Notes * Rick Rogers - 01/23/2024 10:08 AM CDT Care Management Discharge Note Discharge Date: 01/23/2024 Discharge Disposition: Assisted Facility, Transitional Care Discharge Services: None Discharge DME: None Discharge Transportation: family or friend will provide Private pay costs discussed: private room/amenity fees and transportation costs Does the patient's insurance plan have a 3 day qualifying hospital stay waiver? No PAS Confirmation Code: [id number] Patient/family educated on Medicare website which has current facility and service quality ratings:no Education Provided on the Discharge Plan: Yes Persons Notified of Discharge Plans: Patient, spouse, TCU, and [facility] staff Patient/Family in Agreement with the Plan: yes Handoff Referral Completed: No Additional Information: Property Field Adjuster was made aware the provider placed discharge orders. Property Field Adjuster sent them to [facility]. Write stopped by the patient and patient notified the sign writer hand they would like to go in a shared room. Property Field Adjuster set up a W/C transport between [phone]. Property Field Adjuster completed PAS and sent over script to [facility] [phone]. PAS-RR D: Per [facility] regulation, FRANKO completed and submitted PAS-RR to [place] [employer] Direct Connect via the Senior [employer] Line. PAS-RR confirmation # is : [id number] I: FRANKO spoke with patient and they are aware a PAS-RR has been submitted. FRANKO reviewed with patient that they may be contacted for a follow up appointment within 10 days of hospital discharge if their SNF stay is < 30 days. Contact information for [facility] was also provided. A: patient verbalized understanding. P: Further questions may be directed to [facility] at # , option #4 for PAS-RR staff. Property Field Adjuster updated patient, Spouse, TCU, and [facility] nursing staff on discharge plans. Patient will discharge from [facility] to [facility] with W/C transport at [phone]. Please refer to progress notes for further details. KWAME [facility] Work * Milli Jackson RN - 01/22/2024 6:09 PM CDT Patient vital signs are at baseline: Yes Patient able to ambulate as they were prior to admission or with assist devices provided by therapies during their stay: Yes Patient MUST void prior to discharge: No, Reason: crandall Patient able to tolerate oral intake: Yes Pain has adequate pain control using Oral analgesics: Yes Does patient have an identified swimming coach: Yes Has goal D/C date and time been discussed with patient: Yes Pt alert and oriented x4. A2 with walker and gait belt. Rt knee discomfort. Crandall intact with smallamount of bloody output during bm. Pain managed with oxy. Will discharge to TCU tomorrow. * Rick Rogers - 01/22/2024 4:02 PM CDT Care Management Follow Up Length of Stay (days): 7 Expected Discharge Date: 01/23/2024 Concerns to be Addressed: Patient plan of care discussed at interdisciplinary rounds: Yes Anticipated Discharge Disposition: Home, Home Care, Home Infusion, Transitional Care Anticipated Discharge Services: None Anticipated Discharge DME: None Patient/family educated on Medicare website which has current facility and service quality ratings:no Education Provided on the Discharge Plan: Patient/Family in Agreement with the Plan: yes Referrals Placed by CM/SW: Internal Clinic Care Coordination, Home Infusion Private pay costs discussed: Not applicable Additional Information: Per DOD, Patient was declined to all referrals due to bariatric needs. Property Field Adjuster followed up with the patient and let him know he will send referrals to facilities around the area of [facility], and [place]. Property Field Adjuster called the patient's spouse, Rosibel ) and updated her. Rosibel requested, as per previous SW note, the patient not go to [facility], [facility] and [place]. Patient was accepted at [facility]. Property Field Adjuster spoke with Fani who stated they would be able to take the patient tomorrow as early at 1100. Property Field Adjuster will update the patinet. KWAME [facility] Social Work * Arik Ordoñez MD - 01/22/2024 2:[address] [facility] Medicine Progress Note - Hospitalist Service Date of Admission: 01/15/2024 Assessment & Plan Osvaldo Zuniga is a 68 year old male with past medical history significant for obesity, type 2 diabetes mellitus, essential hypertension, depression, anxiety, prostate cancer, incidental finding of brain aneurysm on Plavix and hyperlipidemia who was admitted to [facility] to the concern for right knee pain. Patient was later diagnosed with septic arthritis and is transferred to [facility] for orthopedic surgery evaluation and possible surgical intervention. Patient was started on IV vancomycin and had traumatic Crandall catheter insertion for urinary retention, patient has also developed OMAR in the past 24 hours before transfer. Patient has undergone right knee replacement in August 2020. [facility], with MSSA bacteremia. Underwent open knee arthrectomy. Discharged with cefazolin/rifampin for 6 weeks with ID follow-up. On 01/13/24 he woke up with the right knee swollen painful and from and difficulty walking and presented to outside facility where right knee showed a small effusion. WBC count was 9.1 with absolute neutrophil count of 7.8, elevated CRP of 17.8, patient underwent joint aspiration in ED which started to grow Staph aureus with nucleated cells of 118, 000 71% neutrophil counts. Patient was a startedon vancomycin and ceftriaxone. Patient transferred to [facility] for further surgical intervention. Staph aureus right knee septic arthritis: S/p right revision total knee arthroplasty with placement of antibiotic spacer on 01/16 Routine post-operative care, including pain mgt, activity, diet, and DVT prophylaxis, per surgical team. ASA 325 mg for DVT ppx Hemovac drain removed on 01/21/24 Keep dressing intact change if greater than 60% saturated or peeling off Follow-up with Dr. Francois 2 weeks postop Oxycodone for pain control, 5 mg x 2 yesterday, 10 mg today. Continue TOE FORMER STITCHDOWNS Lyrica 75 mg p.o. twice daily. On Ancef per ID. Cultures from knee aspirate at outside hospital and OR growing MSSA IV antibiotics for 6 weeks (last day of therapy 02/28/2024) PICC line ordered by ID IV antibiotic at discharge ordered by ID ID follow-up will be arranged in 3 weeks Continue to advise not to pick his skin and wounds as this will increase risk of infection Hold TOE FORMER STITCHDOWNS clobetasol ointment. Chronic normocytic anemia ~ 10.5 Acute post-op anemia Asymptomatic, hemodynamically stable. Transfuse if < 7. Acute kidney injury, RESOLVED Urinary retention with bilateral renal hydronephrosis Traumatic catheterization with gas and fluid in the prostate Hypervolemia following OMAR with IVF * Baseline Cr 1 at admission to outside hospital on 01/13 >> 4.49 at outside hospital. Ultrasound of bilateral kidneys showed distended bladder and hydronephrosis Crandall catheter placed with poorUOP, subsequently discovered he traumatic crandall placement. * CT on 01/14: Moderate bilateral hydronephrosis no obstructing stones. Gas and fluid in the prostate gland. May be secondary to traumatic catheter placement, abscess not ruled out. Small amount of gas in the bladder likely related to catheterization. had hematuria secondary to crandall catheter trauma Appreciate Urology consult on 01/16/24 Cystoscopy with complex crandall placement over wire performed at bedside with Dr Woods. Finding of large traumatic false passage. 16F [place] tip crandall placed over wire with cystoscopic guidance for return of about 400cc clear yellow/sandrita urine. Patient tolerated procedure well.CONTINUE CURRENT CRANDALL, DO NOT REMOVE.Will need to follow up with urology for TOV in 2-5 weeks. Appreciate Care by Marilyn Cullen PA-C, on 01/[address] 01/20/24 AM to assess prostate: Shows decrease in gas and fluid in the prostate. Patienthas no bladder, perineal or lower abdominal pain, or fever to suggest abscess. Therefore, suspect secondary to trauma. Patient will call primary urology team to schedule follow-up in 2 to 4 weeks Small amount of bleeding around Crandall catheter after placement, resolved on 01/21/24 Stopped IVF on 01/19/24 Strict UOP, daily weights (discussed with nursing) Wt up, Cr back to baseline on 01/21/24 Resumed TOE FORMER STITCHDOWNS lisinopril, on 01/21/24 Holding PO furosemide 40 mg daily > Give lasix 40 mg IV x 2 on 01/21/24 for weight gain of 10 pounds, swelling Give K 20 meq x 1, will recheck if significant UOP. BMP in AM Holding Celebrex, but can be resumed if needed for pain. Chronic lymphedema Patient is morbidly obese and venous insufficiency, including stasis pigmentary changes, hair loss,numerous healed scabs in his extremities Follows with vascular medicine as outpatient His wounds will provide ongoing portals of entry for infection in the future. GERD Continue famotidine 10 mg daily twice daily, TOE FORMER STITCHDOWNS doses as needed History of depression and anxiety: Continue TOE FORMER STITCHDOWNS duloxetine 120 mg p.o. daily Continue TOE FORMER STITCHDOWNS mirtazapine 30 mg at bedtime Essential hypertension: Resumed TOE FORMER STITCHDOWNS lisinopril and furosemide on 01/21/24 as above. (holding in the context of OMAR) Known brain aneurysm, scheduled for clipping on 01/14. Per clinic note with Dr.Kayan Amaya on 12/03: patient was started on ASA and Plavix to prevent stroke around procedure: Per telephone encounter on 01/14 after he was admitted they recommend he stop Plavix and restart protocol when he gets rescheduled for aneurysm clipping. Other chronic medical conditions Hyperlipidemia Obstructive sleep apnea History of prostate cancer Thrombocytopenia - plts stable around 135. 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 Diet: Advance Diet as Tolerated: Regular Diet Adult DVT Prophylaxis: Pneumatic Compression Devices Crandall Catheter: PRESENT, indication: Acute retention or obstruction, Acute retention or obstruction Lines: PRESENT PICC 01/19/24 Single Lumen Right Basilic-Site Assessment: WDL Cardiac Monitoring: None Code Status: Full Code Clinically Significant Risk Factors # Hypokalemia: Lowest K = 3.3 mmol/L in last 2 days, will replace as needed # Hypoalbuminemia: Lowest albumin = 2.5 g/dL at 01/16/2024 8:45 AM, will monitor as appropriate # Severe Obesity: Estimated body mass index is 42.5 kg/m?? as calculated from the following: Height as of this encounter: 1.829 m (6'). Weight as of this encounter: 142.2 kg (313 lb 6.4 oz). # Financial/Environmental Concerns: none Disposition Plan Medically Ready for Discharge: Anticipated Tomorrow Arik Ordoñez MD Hospitalist Service [facility] Securely message with Zaelab (more info) Text page via [facility] Paging/Directory Interval History Having some expected right knee pain. Physical Exam Vital Signs: Temp: 98.1 ??F (36.7 ??C) Temp src: Oral BP: 133/61 Pulse: 86 Resp: 16 SpO2: 94 % O2 Device: None (Room air) Weight: 313 lbs 6.4 oz Constitutional: awake, alert, cooperative, no apparent distress Eyes: Lids and lashes normal, pupils equal, round, sclera clear, conjunctiva normal ENT: Normocephalic, without obvious abnormality, atraumatic, oral pharynx with moist mucous membranes, tonsils without erythema or exudates Respiratory: No increased work of breathing, good air exchange, clear to auscultation bilaterally, no crackles or wheezing Cardiovascular: regular rate and rhythm, normal S1 and S2, no S3 or S4, and no murmur noted GI: normal bowel sounds, soft, non-distended, non-tender, no masses palpated Skin: no rashes and no jaundice Musculoskeletal: There is no redness, warmth, or swelling of the joints. Full range of motion noted. Motor strength is 5 out of 5 all extremities bilaterally. Tone is normal. Neurologic: Awake, alert, oriented to name, place and time. Cranial nerves II- XII are grossly intact. Motor is 5 out of 5 bilaterally. Neuropsychiatric: General: normal, calm and normal eye contact Medical Decision Making MANAGEMENT DISCUSSED with the following over the past 24 hours: patient NOTE(S)/MEDICAL RECORDS REVIEWED over the past 24 hours: [employer] Data I have personally reviewed the following data over the past 24 hrs: N/A \ N/A / N/A 139 105 17.5 / 120 (H) 3.9 27 1.07 \ Imaging results reviewed over the past 24 hrs: No results found for this or any previous visit (from the past 24 hour(s)). * Tonie English LSW - 01/21/2024 11:53 AM CDT Care Management Follow Up Length of Stay (days): 6 Expected Discharge Date: 01/22/2024 Concerns to be Addressed: Patient plan of care discussed at interdisciplinary rounds: Yes Anticipated Discharge Disposition: Home, Home Care, Home Infusion, Transitional Care Anticipated Discharge Services: None Anticipated Discharge DME: None Patient/family educated on Medicare website which has current facility and service quality ratings:no Education Provided on the Discharge Plan: Patient/Family in Agreement with the Plan: yes Referrals Placed by CM/SW: Internal Clinic Care Coordination, Home Infusion Private pay costs discussed: Not applicable Additional Information: Property Field Adjuster spoke to patient and Rosibel at bedside. Explained that [facility] have yet to respoond and that sign writer hand does not anticipate that they will today. She asked if they are full then what and sign writer hand explained that it would be helpful to have a few additional choices as back up. She will review list and update SW if needed. She said that she will not agree to sending him to [facility], [place] or [place]. Rosibel would like to be updated via phone tomorrow as she works and cannot come to visit during the day. KWAME Carrillo * Candida Roland PA-C - 01/21/2024 11:24 AM CDT Orthopedic Surgery Osvaldo Zuniga 01/21/2024 Admit Date: 01/15/2024 POD: 4 Days Post-Op Procedure(s): RIGHT REVISION TOTAL KNEE ARTHROPLASTY WITH PLACEMENT OF ANTIBIOTIC SPACER Patient resting comfortably in bed this morning. Pain controlled at rest. Endorses breakthrough post operative pain within expectations. Continue pain regimen Tolerating oral intake. Denies nausea or vomiting Denies chest pain or shortness of breath. On room air today. No acute events overnight Pending TCU placement Temp: [98 ??F (36.7 ??C)] 98 ??F (36.7 ??C) Pulse: [72-87] 87 Resp: [16] 16 BP: (132-140)/(59-68) 140/67 SpO2: [93 %-99 %] 95 % Alert and oriented Dressing is clean, dry, and intact. Hemovac removed today. 30% saturation of Aquacel today. Minimal erythema of the surrounding skin. Moderate swelling and erythema of bilateral lower extremity. Venous stasis changes, chronic Bilateral calves are soft, non-tender. Right lower extremity is NVI. Sensation intact bilateral lower extremities Patient able to resist dorsi and plantar flexion bilaterally 2+Dp pulse Labs: Recent Labs Lab Test 01/20/24 0633 01/19/24 0726 01/18/24 0734 01/17/24 0832 01/16/24 0845 WBC -- 6.0 -- 11.4* 12.0* HGB 8.3* 7.5* 7.7* 8.9* 9.2* PLT -- 135* -- 121* 97* No lab results found. Recent Labs Lab Test 01/19/24 0726 01/18/24 0734 01/17/24 0832 CRPI 206.33* 274.19* 330.61* 1. S/p revision of right TKA (01/17/2024) PLAN: Continue ASA 325 mg for DVT prophylaxis. Mobilize with PT/OT WBAT operative extremity. Continue current pain regimen Dressings: Keep intact. Change if >60% saturated or peeling off. Follow-up: 2 weeks post-op with Dr. Francois Disposition Anticipate d/c to TCU when medically cleared and progressing in PT. Candida Roland PA-C * Susan Moody MD - 01/21/2024 8:[address] [facility] Hospitalist Progress Note Date of Service (when I saw the patient): 01/21/2024 Admit date: 01/15/2024 Interval History Full details of events over last 24 hours outlined below. Afebrile hemodynamically stable, oxygen 93% on room air Labs today reveal normal creatinine back to baseline of 1.1. K3.6 lites are all normal. Note weight is up by 10 pounds and he has noted increased swelling. Assessment & Plan Osvaldo Zuniga is a 68 year old male with past medical history significant for obesity, type 2 diabetes mellitus, essential hypertension, depression, anxiety, prostate cancer, incidental finding of brain aneurysm on Plavix and hyperlipidemia who was admitted to [facility] to the concern for right knee pain. Patient was later diagnosed with septic arthritis and is transferred to [facility] for orthopedic surgery evaluation and possible surgical intervention. Patient was started on IV vancomycin and had traumatic Crandall catheter insertion for urinary retention, patient has also developed OMAR in the past 24 hours before transfer. Assessment & Plan Patient has undergone right knee replacement in August 2020. [facility], with MSSA bacteremia. Underwent open knee arthrectomy. Discharged with cefazolin/rifampin for 6 weeks with ID follow-up. On 01/13/24 he woke up with the right knee swollen painful and from and difficulty walking and presented to outside facility where right knee showed a small effusion. WBC count was 9.1 with absolute neutrophil count of 7.8, elevated CRP of 17.8, patient underwent joint aspiration in ED which started to grow Staph aureus with nucleated cells of 118, 000 71% neutrophil counts. Patient was a startedon vancomycin and ceftriaxone. Patient transferred to [facility] for further surgical intervention. Staph aureus right knee septic arthritis: S/p right revision total knee arthroplasty with placement of antibiotic spacer on 01/16 Routine post-operative care, including pain mgt, activity, diet, and DVT prophylaxis, per surgical team. ASA 325 mg for DVT ppx Hemovac drain removed on 01/21/24 Keep dressing intact change if greater than 60% saturated or peeling off Follow-up with Dr. Francois 2 weeks postop Oxycodone for pain control, 5 mg x 2 yesterday, 10 mg today. Continue TOE FORMER STITCHDOWNS Lyrica 75 mg p.o. twice daily. On Ancef per ID. Cultures from knee aspirate at outside hospital and OR growing MSSA IV antibiotics for 6 weeks (last day of therapy 02/28/2024) PICC line ordered by ID IV antibiotic at discharge ordered by ID ID follow-up will be arranged in 3 weeks Continue to advise not to pick his skin and wounds as this will increase risk of infection Hold TOE FORMER STITCHDOWNS clobetasol ointment. Chronic normocytic anemia ~ 10.5 Acute post-op anemia Asymptomatic, hemodynamically stable. Transfuse if < 7. Recent Labs Lab 01/20/24 0633 01/19/24 0726 01/18/24 0734 01/17/24 0832 01/16/24 0845 HGB 8.3* 7.5* 7.7* 8.9* 9.2* Acute kidney injury, RESOLVED Urinary retention with bilateral renal hydronephrosis Traumatic catheterization with gas and fluid in the prostate Hypervolemia following OMAR with IVF * Baseline Cr 1 at admission to outside hospital on 01/13 >> 4.49 at outside hospital. Ultrasound of bilateral kidneys showed distended bladder and hydronephrosis Crandall catheter placed with poorUOP, subsequently discovered he traumatic crandall placement. * CT on 01/14: Moderate bilateral hydronephrosis no obstructing stones. Gas and fluid in the prostate gland. May be secondary to traumatic catheter placement, abscess not ruled out. Small amount of gas in the bladder likely related to catheterization. had hematuria secondary to crandall catheter trauma Appreciate Urology consult on 01/16/24 Cystoscopy with complex crandall placement over wire performed at bedside with Dr Woods. Finding of large traumatic false passage. 16F [place] tip crandall placed over wire with cystoscopic guidance for return of about 400cc clear yellow/sandrita urine. Patient tolerated procedure well.CONTINUE CURRENT CRANDALL, DO NOT REMOVE.Will need to follow up with urology for TOV in 2-5 weeks. Appreciate Care by Marilyn Cullen PA-C, on 01/[address] 01/20/24 AM to assess prostate: Shows decrease in gas and fluid in the prostate. Patienthas no bladder, perineal or lower abdominal pain, or fever to suggest abscess. Therefore, suspect secondary to trauma. Patient will call primary urology team to schedule follow-up in 2 to 4 weeks Small amount of bleeding around Crandall catheter after placement, resolved on 01/21/24 Stopped IVF on 01/19/24 Strict UOP, daily weights (discussed with nursing) Wt up, Cr back to baseline on 01/21/24 Resumed TOE FORMER STITCHDOWNS lisinopril, on 01/21/24 Holding PO furosemide 40 mg daily > Give lasix 40 mg IV x 2 on 01/21/24 for weight gain of 10 pounds, swelling Give K 20 meq x 1, will recheck if significant UOP. BMP in AM Holding Celebrex, but can be resumed if needed for pain. Vitals: 01/16/24 0532 01/20/24 2019 Weight: 138.3 kg (305 lb) 142.2 kg (313 lb 6.4 oz) I/O last 3 completed shifts: In: 540 [P.O.:540] Out: 2265 [Urine:2150; Drains:115] Recent Labs Lab 01/21/24 0556 01/20/24 0633 01/19/24 0726 01/18/24 0734 01/17/24 0832 01/16/24 0845 CO2 23 21* 19* 18* 18* 19* NA 140 141 137 139 135 132* POTASSIUM 3.6 3.8 3.8 4.3 4.5 4.1 BUN 23.0 33.5* 47.4* 53.1* 49.3* 48.1* CR 1.10 1.50* 2.19* 3.13* 3.77* 4.49* Chronic lymphedema Patient is morbidly obese and venous insufficiency, including stasis pigmentary changes, hair loss,numerous healed scabs in his extremities Follows with vascular medicine as outpatient His wounds will provide ongoing portals of entry for infection in the future. GERD Continue famotidine 10 mg daily twice daily, TOE FORMER STITCHDOWNS doses as needed History of depression and anxiety: Continue TOE FORMER STITCHDOWNS duloxetine 120 mg p.o. daily Continue TOE FORMER STITCHDOWNS mirtazapine 30 mg at bedtime Essential hypertension: Resumed TOE FORMER STITCHDOWNS lisinopril and furosemide on 01/21/24 as above. (holding in the context of OMAR) Known brain aneurysm, scheduled for clipping on 01/14. Per clinic note with Dr.Kayan Amaya on 12/03: patient was started on ASA and Plavix to prevent stroke around procedure: Per telephone encounter on 01/14 after he was admitted they recommend he stop Plavix and restart protocol when he gets rescheduled for aneurysm clipping. Other chronic medical conditions Hyperlipidemia Obstructive sleep apnea History of prostate cancer Thrombocytopenia - plts stable around 135. 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 Clinically Significant Risk Factors # Hypoalbuminemia: Lowest albumin = 2.5 g/dL at 01/16/2024 8:45 AM, will monitor as appropriate # Severe Obesity: Estimated body mass index is 42.5 kg/m?? as calculated from the following: Height as of this encounter: 1.829 m (6'). Weight as of this encounter: 142.2 kg (313 lb 6.4 oz). # Financial/Environmental Concerns: none Diet: Orders Placed This Encounter Advance Diet as Tolerated: Regular Diet Adult IVF: NS @ 125 ml/h DVT Prophylaxis: PCDs, per surgery. Crandall Catheter: PRESENT, indication: Acute retention or obstruction, Acute retention or obstruction Full Code Disposition: Medically ready for discharge awaiting TCU placement PT/OT Post-op Communication: Discussed with on RN, and patient on 01/21/24 Susan Moody MD Hospitalist Service [facility] Securely message with the [employer] Console (learn more here) Text page via [employer], Broker Paging/Directory -Data reviewed today: I reviewed all new labs and imaging results over the last 24 hours. I personally reviewed no images or EKG's today. Physical Exam BP: 139/59 Pulse: 86 Resp: 16 SpO2: 93 % O2 Device: None (Room air) Vitals: 01/16/24 0532 01/20/242018 Weight: 138.3 kg (305 lb) 142.2 kg (313 lb 6.4 oz) Vital Signs with Ranges Pulse: [72-86] 86 Resp: [16] 16 BP: (132-139)/(59-68) 139/59 SpO2: [93 %-99 %] 93 % I/O last 3 completed shifts: In: 540 [P.O.:540] Out: 2265 [Urine:2150; Drains:115] Today's Exam Constitutional: NAD, Neuropsyche: Jovial, upbeat, alert and oriented, answers questions appropriately. Respiratory: Breathing comfortably, no wheezes, no crackles. Cardiovascular: Regular rate and rhythm, 2+ edema. GI: soft, NT/ND, BS normal. Skin/Integumen: Chronic venous stasis changes. Sores from skin picking on upper extremities. No acute rash, sign of bleeding. Small amount of blood. Medications All medications reviewed on 01/21/24 Current Facility-Administered Medications Medication Dose Route Frequency Provider Last Rate Last Admin Current Facility-Administered Medications Medication Dose Route Frequency Provider Last Rate Last Admin aspirin (ASA) EC tablet 325 mg 325 mg Oral Daily Albania Jackson PA-C 325 mg at 01/20/24 1012 atorvastatin (LIPITOR) tablet 10 mg 10 mg Oral Daily Karlie Rosenthal MD 10 mg at 01/20/24 1012 ceFAZolin (ANCEF) 2 g in 100 mL D5W intermittent infusion 2 g Intravenous Q8H Jason Walker MD 200 mL/hr at 01/21/24 0509 2 g at 01/21/24 0509 DULoxetine (CYMBALTA) DR capsule 120 mg 120 mg Oral Daily Karlie Rosenthal MD 120 mg at 01/20/24 101 famotidine (PEPCID) tablet 20 mg 20 mg Oral At Bedtime Albania Jackson PA-C 20 mg at 01/20/242108 Or famotidine (PEPCID) injection 20 mg 20 mg Intravenous At Bedtime Albania Jackson PA-C mirtazapine (REMERON) tablet 15 mg 15 mg Oral At Bedtime Karlie Rosenthal MD 15 mg at 01/20/242108 polyethylene glycol (MIRALAX) Packet 17 g 17 g Oral Daily Albania Jackson PA-C 17 g at 01/18/24904 pregabalin (LYRICA) capsule 75 mg 75 mg Oral BID Karlie Rosenthal MD 75 mg at 01/20/242015 senna-docusate (SENOKOT-S/PERICOLACE) 8.6-50 MG per tablet 1 tablet 1 tablet Oral BID Karlie Rosenthal MD 1 tablet at 01/18/24903 Or senna-docusate (SENOKOT-S/PERICOLACE) 8.6-50 MG per tablet 2 tablet 2 tablet Oral BID Karlie Rosenthal MD 2 tablet at 01/18/242124 sodium chloride (PF) 0.9% PF flush 10-40 mL 10-40 mL Intracatheter Q8H Mervin Banegas PA-C 20 mL at 01/21/24 0512 sodium chloride (PF) 0.9% PF flush 3 mL 3 mL Intracatheter Q8H Albania Jackson PA-C 3 mL at 01/21/24 0514 sodium chloride (PF) 0.9% PF flush 3 mL 3 mL Intracatheter Q8H Karlie Rosenthal MD 3 mL at 01/21/24 0514 tamsulosin (FLOMAX) capsule 0.8 mg 0.8 mg Oral Daily Karlie Rosenthal MD 0.8 mg at 01/20/24 1012 PRN Meds: Current Facility-Administered Medications Medication Dose Route Frequency Provider Last Rate Last Admin acetaminophen (TYLENOL) tablet 650 mg 650 mg Oral Q4H PRN Albania Jackson PA-C benzocaine-menthol (CHLORASEPTIC) 6-10 MG lozenge 1 lozenge 1 lozenge Buccal Q1H PRN Albania Jackson PA-C bisacodyl (DULCOLAX) suppository 10 mg 10 mg Rectal Daily PRN Albania Jackson PA-C calcium carbonate (TUMS) chewable tablet 1,000 mg 1,000 mg Oral 4x Daily PRN Karlie Rosenthal MD hydrALAZINE (APRESOLINE) tablet 10 mg 10 mg Oral Q4H PRN Karlie Rosenthal MD Or hydrALAZINE (APRESOLINE) injection 10 mg 10 mg Intravenous Q4H PRN Karlie Rosenthal MD HYDROmorphone (DILAUDID) injection 0.1 mg 0.1 mg Intravenous Q2H PRN Albania Jackson PA-C Or HYDROmorphone (DILAUDID) injection 0.2 mg 0.2 mg Intravenous Q2H PRN Albania Jackson PA-C 0.2 mg at01/19/24 1453 hydrOXYzine HCl (ATARAX) tablet 10 mg 10 mg Oral Q6H PRN Albania Jackson PA-C 10 mg at 01/19/24 0937 lidocaine (LMX4) cream Topical Q1H PRN Karlie Rosenthal MD lidocaine (XYLOCAINE) 2 % external gel Urethral Q4H PRN Barby Urbano PA-C lidocaine (XYLOCAINE) 2 % external gel Urethral Once PRN Christine Ugalde MD lidocaine 1 % 0.1-1 mL 0.1-1 mL Other Q1H PRN Karlie Rosenthal MD lidocaine 1 % 0.1-5 mL 0.1-5 mL Other Q1H PRN Mervin Banegas PA-C 2 mL at 01/19/24 1348 magnesium hydroxide (MILK OF MAGNESIA) suspension 30 mL 30 mL Oral Daily PRN Albania Jackson PA-C melatonin tablet 1 mg 1 mg Oral At Bedtime PRN Karlie Rosenthal MD naloxone (NARCAN) injection 0.2 mg 0.2 mg Intravenous Q2 Min PRN Hoiness, Marilyn, RPH Or naloxone (NARCAN) injection 0.4 mg 0.4 mg Intravenous Q2 Min PRN Hoiness, Marilyn, RPH Or naloxone (NARCAN) injection 0.2 mg 0.2 mg Intramuscular Q2 Min PRN Hoiness, Marilyn, RPH Or naloxone (NARCAN) injection 0.4 mg 0.4 mg Intramuscular Q2 Min PRN Hoiness, Marilyn, RPH ondansetron (ZOFRAN ODT) ODT tab 4 mg 4 mg Oral Q6H PRN Albania Jackson PA-C Or ondansetron (ZOFRAN) injection 4 mg 4 mg Intravenous Q6H PRN Albania Jackson PA-C oxyCODONE (ROXICODONE) tablet 5 mg 5 mg Oral Q4H PRN Candida Roland PA-C 5 mg at 01/20/242015 Or oxyCODONE (ROXICODONE) tablet 10 mg 10 mg Oral Q4H PRN Candida Roland PA-C prochlorperazine (COMPAZINE) injection 5 mg 5 mg Intravenous Q6H PRN Albania Jackson PA-C Or prochlorperazine (COMPAZINE) tablet 5 mg 5 mg Oral Q6H PRN Albania Jackson PA-C senna-docusate (SENOKOT-S/PERICOLACE) 8.6-50 MG per tablet 1 tablet 1 tablet Oral BID PRN Karlie Rosenthal MD Or senna-docusate (SENOKOT-S/PERICOLACE) 8.6-50 MG per tablet 2 tablet 2 tablet Oral BID PRN Karlie Rosenthal MD sodium chloride (PF) 0.9% PF flush 10-20 mL 10-20 mL Intracatheter q1 min prn Mervin Banegas PA-C sodium chloride (PF) 0.9% PF flush 3 mL 3 mL Intracatheter q1 min prn Albania Jackson PA-C sodium chloride (PF) 0.9% PF flush 3 mL 3 mL Intracatheter q1 min prn Karlie Rosenthal MD zolpidem (AMBIEN) tablet 5 mg 5 mg Oral At Bedtime PRN Karlie Rosenthal MD Data Recent Labs Lab 01/21/24 0556 01/20/24 0633 01/19/24 0726 01/18/24 0734 01/17/24 1124 01/17/24 0832 01/16/24 2215 01/16/24 0845 WBC -- -- 6.0 -- -- 11.4* -- 12.0* HGB -- 8.3* 7.5* 7.7* -- 8.9* -- 9.2* MCV -- -- 82 -- -- 82 -- 84 PLT -- -- 135* -- -- 121* -- 97* NA 140 141 137 139 -- 135 -- 132* POTASSIUM 3.6 3.8 3.8 4.3 -- 4.5 -- 4.1 CHLORIDE 107 107 106 106 -- 103 -- 99 CO2 23 21* 19* 18* -- 18* -- 19* BUN 23.0 33.5* 47.4* 53.1* -- 49.3* -- 48.1* CR 1.10 1.50* 2.19* 3.13* -- 3.77* -- 4.49* ANIONGAP 10 13 12 15 -- 14 -- 14 TOM 8.6* 8.4* 8.2* 8.1* -- 8.3* -- 8.0* GLC 125* 125* 109* 116* < > 138* < > 119* ALBUMIN -- -- -- -- -- -- -- 2.5* PROTTOTAL -- -- -- -- -- -- -- 6.4 BILITOTAL -- -- -- -- -- -- -- 1.4* ALKPHOS -- -- -- -- -- -- -- 122 ALT -- -- -- -- -- -- -- 16 AST -- -- -- -- -- -- -- 19 < > = values in this interval not displayed. Recent Results (from the past 24 hour(s)) CT Abdomen Pelvis w/o Contrast Narrative EXAM: CT ABDOMEN AND PELVIS WITHOUT CONTRAST LOCATION: [facility] DATE: 01/20/2024 INDICATION: Following for hydronephrosis, [...] gas is almost completely resolved. MUSCULOSKELETAL: Normal. Impression IMPRESSION: 1. Decrease in the gas and fluid in the prostate as compared to the previous examination consistentwith improving abscess. 2. No hydronephrosis in either kidney on examination today. Crandall catheter in good position and thebladder is decompressed. 3. Small amount of abdominal ascites. * Rahel Cook RN - 01/20/2024 10:02 PM CDT VSS. A/O. Up- strong 2/walker/belt. R knee silvestre wrap and hemo vac. LE dusky/edema. Scrotum edema. Oxy given. Tolerating diet. Crandall good UOP. +bm. Bruises on R arm. * Susan Moody MD - 01/20/2024 5:[address] [facility] Hospitalist Progress Note Date of Service (when I saw the patient): 01/20/2024 Admit date: 01/15/2024 Interval History Full details of events over last 24 hours outlined below. Patient offers no new concerns. He continues to have some small amount of bleeding around his catheter. Urine is clear. Pain is controlled. He is 15 mg of oxycodone yesterday 5 mg so far today Afebrile hemodynamically stable with blood pressures mildly elevated in the 140s. Assessment & Plan Osvaldo Zuniga is a 68 year old male with past medical history significant for obesity, type 2 diabetes mellitus, essential hypertension, depression, anxiety, prostate cancer, incidental finding of brain aneurysm on Plavix and hyperlipidemia who was admitted to [facility] to the concern for right knee pain. Patient was later diagnosed with septic arthritis and is transferred to [facility] for orthopedic surgery evaluation and possible surgical intervention. Patient was started on IV vancomycin and had traumatic Crandall catheter insertion for urinary retention, patient has also developed OMAR in the past 24 hours before transfer. Assessment & Plan Patient has undergone right knee replacement in August 2020. Patient [facility] to [facility] for infected prosthetic knee joint. On 12/16 he went to the OR for open knee arthrectomy which was well-tolerated. Blood cultures grew a Staph aureus although repeat blood cultures were negative. PICC line was placed on 12/17/20 and patient was discharged with cefazolin/rifampinfor 6 weeks with ID follow-up. Patient has now developed right knee discomfort again in the past few months, was recently evaluated by [facility] orthopedics on Sunday 01/07. According to patient he has been seen by for orthopedic providers in the past few months as he has developed significant discomfort. On 01/12 he woke up with the right knee swollen painful and from and difficulty walking and presented to outside facility where right knee showed a small effusion. WBC count was 9.1 with absolute neutrophil count of 7.8, elevated CRP of 17.8, patient underwent joint aspiration in ED which started to grow Staph aureus with nucleated cells of 118, 000 71% neutrophil counts. Patient was a started onvancomycin and ceftriaxone. Patient is now transferred to [facility] for further surgical intervention. Of note patient initial creatinine was 1.0 on admission after antibiotics were started his creatinine has jumped to 2.21 this morning. Ultrasound of bilateral kidneys showed distended bladder and hydronephrosis Crandall catheter has been placed although patient has poor urine output, CBC Staph aureus right knee septic arthritis: S/p right revision total knee arthroplasty with placement of antibiotic spacer on 01/16 Routine post-operative care, including pain mgt, activity, diet, and DVT prophylaxis, per surgical team. ASA 325 mg for DVT ppx Hemovac drain remains in place in R hip. Mgt per ortho Keep dressing intact change if greater than 60% saturated or peeling off Follow-up with Dr. Francois 2 weeks postop Oxycodone for pain control Continue TOE FORMER STITCHDOWNS Lyrica 75 mg p.o. twice daily On Ancef per ID. Cultures from knee aspirate at outside hospital and OR growing MSSA IV antibiotics for 6 weeks (last day of therapy 02/28/2024) PICC line ordered by ID IV antibiotic at discharge ordered by ID ID follow-up will be arranged in 3 weeks Continue to advise not to pick his skin and wounds as this will increase risk of infection Hold TOE FORMER STITCHDOWNS clobetasol ointment. Chronic normocytic anemia ~ 10.5 Acute post-op anemia Asymptomatic, hemodynamically stable. Transfuse if < 7. Check iron panel and ferritin Recent Labs Lab 01/20/24 0633 01/19/24 0726 01/18/24 0734 01/17/24 0832 01/16/24 0845 HGB 8.3* 7.5* 7.7* 8.9* 9.2* Acute kidney injury, resolving Urinary retention with bilateral renal hydronephrosis Traumatic catheterization with gas and fluid in the prostate * CT on 01/14: Moderate bilateral hydronephrosis no obstructing stones. Gas and fluid in the prostate gland. May be secondary to traumatic catheter placement, abscess not ruled out. Small amount of gas in the bladder likely related to catheterization. * baseline Cr 1 on 01/13 >> 4.49 had hematuria secondary to crandall catheter trauma Currently denies any symptoms of pain or irritation around the Crandall or lower abdominal pain or rectal pain to suggest prostatitis no fevers. Appreciate Urology consult on 01/16/24 Cystoscopy with complex crandall placement over wire performed at bedside with Dr Woods. Finding of large traumatic false passage. 16F [place] tip crandall placed over wire with cystoscopic guidance for return of about 400cc clear yellow/sandrita urine. Patient tolerated procedure well.CONTINUE CURRENT CRANDALL, DO NOT REMOVE.Will need to follow up with urology for TOV in 2-5 weeks. Appreciate Care by Marilyn Cullen PA-C, on 01/[address] 01/20/24 AM to assess prostate: Shows decrease in gas and fluid in the prostate. Patienthas no bladder, perineal or lower abdominal pain, or fever to suggest abscess. Therefore, suspect secondary to trauma. Patient will call primary urology team to schedule follow-up in 2 to 4 weeks Small amount of bleeding around Crandall catheter since placement noted by RN on 01/20/24 Examined penis and meatus. I do not see any visible lesion. Suspect secondary to original injury. Monitor. Over 3 L UOP last 24 hours Stopped IVF on 01/19/24 Daily BMP, daily weights. (Discussed with nurse obtaining daily weights) Holding TOE FORMER STITCHDOWNS lisinopril , furosemide, and Celebrex Vitals: 01/16/24 0532 Weight: 138.3 kg (305 lb) I/O last 3 completed shifts: In: 880 [P.O.:880] Out: 1365 [Urine:1300; Drains:65] Recent Labs Lab 01/20/24 0633 01/19/24 0726 01/18/24 0734 01/17/24 0832 01/16/24 0845 CO2 21* 19* 18* 18* 19* NA 141 137 139 135 132* POTASSIUM 3.8 3.8 4.3 4.5 4.1 BUN 33.5* 47.4* 53.1* 49.3* 48.1* CR 1.50* 2.19* 3.13* 3.77* 4.49* Chronic lymphedema Patient is morbidly obese and venous insufficiency, including stasis pigmentary changes, hair loss,numerous healed scabs in his extremities Follows with vascular medicine as outpatient His wounds will provide ongoing portals of entry for infection in the future. GERD Continue famotidine 10 mg daily twice daily, TOE FORMER STITCHDOWNS doses as needed History of depression and anxiety: Continue TOE FORMER STITCHDOWNS duloxetine 120 mg p.o. daily Continue TOE FORMER STITCHDOWNS mirtazapine 30 mg at bedtime Essential hypertension: Holding TOE FORMER STITCHDOWNS lisinopril and furosemide in context of OMAR, BP well-controlled on 01/17 As needed hydralazine available Known brain aneurysm, scheduled for clipping on 01/14. Per clinic note with Dr.Kayan Amaya on 12/03: patient was started on ASA and Plavix to prevent stroke around procedure: Per telephone encounter on 01/14 after he was admitted they recommend he stop Plavix and restart protocol when he gets rescheduled for aneurysm clipping. Other chronic medical conditions Hyperlipidemia Obstructive sleep apnea History of prostate cancer Thrombocytopenia - plts stable around 135. 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 Clinically Significant Risk Factors # Hypoalbuminemia: Lowest albumin = 2.5 g/dL at 01/16/2024 8:45 AM, will monitor as appropriate # Severe Obesity: Estimated body mass index is 41.37 kg/m?? as calculated from the following: Height as of this encounter: 1.829 m (6'). Weight as of this encounter: 138.3 kg (305 lb). # Financial/Environmental Concerns: none Diet: Orders Placed This Encounter Advance Diet as Tolerated: Regular Diet Adult IVF: NS @ 125 ml/h DVT Prophylaxis: PCDs, per surgery. Crandall Catheter: PRESENT, indication: Acute retention or obstruction, Acute retention or obstruction Full Code Disposition: Medically ready for discharge awaiting TCU placement PT/OT Post-op Communication: Discussed with patient and RN on 01/19 Susan Moody MD Hospitalist Service [facility] Securely message with the [employer] Console (learn more here) Text page via [employer], Broker Paging/Directory -Data reviewed today: I reviewed all new labs and imaging results over the last 24 hours. I personally reviewed no images or EKG's today. Physical Exam Temp: 98 ??F (36.7 ??C) Temp src: Oral BP: (!) 149/67 Pulse: 83 Resp: 16 SpO2: 95 % O2 Device: None(Room air) Vitals: 01/16/24 0532 Weight: 138.3 kg (305 lb) Vital Signs with Ranges Temp: [97.9 ??F (36.6 ??C)-98 ??F (36.7 ??C)] 98 ??F (36.7 ??C) Pulse: [79-83] 83 Resp: [16] 16 BP: (141-149)/(60-67) 149/67 SpO2: [93 %-95 %] 95 % I/O last 3 completed shifts: In: 880 [P.O.:880] Out: 1365 [Urine:1300; Drains:65] Today's Exam Constitutional: NAD, Neuropsyche: Jovial, alert and oriented, answers questions appropriately. Respiratory: Breathing comfortably, good air exchange, no wheezes, no crackles. Cardiovascular: Regular rate and rhythm, 2+ edema. GI: soft, NT/ND, BS normal. Examined penis and meatus around Crandall catheter. There is a small amount of blood coming expressed from meatus without evidence of lesion/source distally. Skin/Integumen: Chronic venous stasis changes. Sores from skin picking on upper extremities. No acute rash, sign of bleeding. Small amount of blood Medications All medications reviewed on 01/20/24 Current Facility-Administered Medications Medication Dose Route Frequency Provider Last Rate Last Admin Current Facility-Administered Medications Medication Dose Route Frequency Provider Last Rate Last Admin aspirin (ASA) EC tablet 325 mg 325 mg Oral Daily Albania Jackson PA-C 325 mg at 01/20/24 1012 atorvastatin (LIPITOR) tablet 10 mg 10 mg Oral Daily Karlie Rosenthal MD 10 mg at 01/20/24 1012 ceFAZolin (ANCEF) 2 g in 100 mL D5W intermittent infusion 2 g Intravenous Q8H Jason Walker MD 200 mL/hr at 01/20/24 1348 2 g at 01/20/24 1348 DULoxetine (CYMBALTA) DR capsule 120 mg 120 mg Oral Daily Karlie Rosenthal MD 120 mg at 01/20/24 1012 famotidine (PEPCID) tablet 20 mg 20 mg Oral At Bedtime Albania Jackson PA-C 20 mg at 01/19/242138 Or famotidine (PEPCID) injection 20 mg 20 mg Intravenous At Bedtime Albania Jackson PA-C mirtazapine (REMERON) tablet 15 mg 15 mg Oral At Bedtime Karlie Rosenthal MD 15 mg at 01/19/24 2139 polyethylene glycol (MIRALAX) Packet 17 g 17 g Oral Daily Albania Jackson PA-C 17 g at 01/18/24 0905 pregabalin (LYRICA) capsule 75 mg 75 mg Oral BID Karlie Rosenthal MD 75 mg at 01/20/24 1011 senna-docusate (SENOKOT-S/PERICOLACE) 8.6-50 MG per tablet 1 tablet 1 tablet Oral BID Karlie Rosenthal MD 1 tablet at 01/18/24 0904 Or senna-docusate (SENOKOT-S/PERICOLACE) 8.6-50 MG per tablet 2 tablet 2 tablet Oral BID Karlie Rosenthal MD 2 tablet at 01/18/24 2125 sodium chloride (PF) 0.9% PF flush 10-40 mL 10-40 mL Intracatheter Q8H Mervin Banegas PA-C 10 mL at 01/20/24 1357 sodium chloride (PF) 0.9% PF flush 3 mL 3 mL Intracatheter Q8H Albania Jackson PA-C 3 mL at 01/20/24 1358 sodium chloride (PF) 0.9% PF flush 3 mL 3 mL Intracatheter Q8H Karlie Rosenthal MD 3 mL at 01/20/24 0518 tamsulosin (FLOMAX) capsule 0.8 mg 0.8 mg Oral Daily Karlie Rosenthal MD 0.8 mg at 01/20/24 1012 PRN Meds: Current Facility-Administered Medications Medication Dose Route Frequency Provider Last Rate Last Admin acetaminophen (TYLENOL) tablet 650 mg 650 mg Oral Q4H PRN Albania Jackson PA-C benzocaine-menthol (CHLORASEPTIC) 6-10 MG lozenge 1 lozenge 1 lozenge Buccal Q1H PRN Albania Jackson PA-C bisacodyl (DULCOLAX) suppository 10 mg 10 mg Rectal Daily PRN Albania Jackson PA-C calcium carbonate (TUMS) chewable tablet 1,000 mg 1,000 mg Oral 4x Daily PRN Karlie Rosenthal MD hydrALAZINE (APRESOLINE) tablet 10 mg 10 mg Oral Q4H PRN Karlie Rosenthal MD Or hydrALAZINE (APRESOLINE) injection 10 mg 10 mg Intravenous Q4H PRN Karlie Rosenthal MD HYDROmorphone (DILAUDID) injection 0.1 mg 0.1 mg Intravenous Q2H PRN Albania Jackson PA-C Or HYDROmorphone (DILAUDID) injection 0.2 mg 0.2 mg Intravenous Q2H PRN Albania Jackson PA-C 0.2 mg at01/19/24 1453 hydrOXYzine HCl (ATARAX) tablet 10 mg 10 mg Oral Q6H PRN Albania Jackson PA-C 10 mg at 01/19/24 0937 lidocaine (LMX4) cream Topical Q1H PRN Karlie Rosenthal MD lidocaine (XYLOCAINE) 2 % external gel Urethral Q4H PRN Barby Urbano PA-C lidocaine (XYLOCAINE) 2 % external gel Urethral Once PRN Christine Ugalde MD lidocaine 1 % 0.1-1 mL 0.1-1 mL Other Q1H PRN Karlie Rosenthal MD lidocaine 1 % 0.1-5 mL 0.1-5 mL Other Q1H PRN Mervin Banegas PA-C 2 mL at 01/19/24 1348 magnesium hydroxide (MILK OF MAGNESIA) suspension 30 mL 30 mL Oral Daily PRN Albania Jackson PA-C melatonin tablet 1 mg 1 mg Oral At Bedtime PRN Karlie Rosenthal MD naloxone (NARCAN) injection 0.2 mg 0.2 mg Intravenous Q2 Min PRN Hoiness, Marilyn, RPH Or naloxone (NARCAN) injection 0.4 mg 0.4 mg Intravenous Q2 Min PRN Hoiness, Marilyn, RPH Or naloxone (NARCAN) injection 0.2 mg 0.2 mg Intramuscular Q2 Min PRN Hoiness, Marilyn, RPH Or naloxone (NARCAN) injection 0.4 mg 0.4 mg Intramuscular Q2 Min PRN Hoiness, Marilyn, RPH ondansetron (ZOFRAN ODT) ODT tab 4 mg 4 mg Oral Q6H PRN Albania Jackson PA-C Or ondansetron (ZOFRAN) injection 4 mg 4 mg Intravenous Q6H PRN Albania Jackson PA-C oxyCODONE (ROXICODONE) tablet 5 mg 5 mg Oral Q4H PRN Candida Roland PA-C Or oxyCODONE (ROXICODONE) tablet 10 mg 10 mg Oral Q4H PRN Candida Roland PA-C prochlorperazine (COMPAZINE) injection 5 mg 5 mg Intravenous Q6H PRN Albania Jackson PA-C Or prochlorperazine (COMPAZINE) tablet 5 mg 5 mg Oral Q6H PRN Albania Jackson PA-C senna-docusate (SENOKOT-S/PERICOLACE) 8.6-50 MG per tablet 1 tablet 1 tablet Oral BID PRN Karlie Rosenthal MD Or senna-docusate (SENOKOT-S/PERICOLACE) 8.6-50 MG per tablet 2 tablet 2 tablet Oral BID PRN Karlie Rosenthal MD sodium chloride (PF) 0.9% PF flush 10-20 mL 10-20 mL Intracatheter q1 min prn Mervin Banegas PA-C sodium chloride (PF) 0.9% PF flush 3 mL 3 mL Intracatheter q1 min prn Albania Jackson PA-C sodium chloride (PF) 0.9% PF flush 3 mL 3 mL Intracatheter q1 min prn Karlie Rosenthal MD zolpidem (AMBIEN) tablet 5 mg 5 mg Oral At Bedtime PRN Karlie Rosentahl MD Data Recent Labs Lab 01/20/24 0633 01/19/24 0726 01/18/24 0734 01/17/24 1124 01/17/24 0832 01/16/24 2215 01/16/24 0845 WBC -- 6.0 -- -- 11.4* -- 12.0* HGB 8.3* 7.5* 7.7* -- 8.9* -- 9.2* MCV -- 82 -- -- 82 -- 84 PLT -- 135* -- -- 121* -- 97* NA 141 137 139 -- 135 -- 132* POTASSIUM 3.8 3.8 4.3 -- 4.5 -- 4.1 CHLORIDE 107 106 106 -- 103 -- 99 CO2 21* 19* 18* -- 18* -- 19* BUN 33.5* 47.4* 53.1* -- 49.3* -- 48.1* CR 1.50* 2.19* 3.13* -- 3.77* -- 4.49* ANIONGAP 13 12 15 -- 14 -- 14 TOM 8.4* 8.2* 8.1* -- 8.3* -- 8.0* GLC 125* 109* 116* < > 138* < > 119* ALBUMIN -- -- -- -- -- -- 2.5* PROTTOTAL -- -- -- -- -- -- 6.4 BILITOTAL -- -- -- -- -- -- 1.4* ALKPHOS -- -- -- -- -- -- 122 ALT -- -- -- -- -- -- 16 AST -- -- -- -- -- -- 19 < > = values in this interval not displayed. Recent Results (from the past 24 hour(s)) CT Abdomen Pelvis w/o Contrast Narrative EXAM: CT ABDOMEN AND PELVIS WITHOUT CONTRAST LOCATION: [facility] DATE: 01/20/2024 INDICATION: Following for hydronephrosis, [...] gas is almost completely resolved. MUSCULOSKELETAL: Normal. Impression IMPRESSION: 1. Decrease in the gas and fluid in the prostate as compared to the previous examination consistentwith improving abscess. 2. No hydronephrosis in either kidney on examination today. Crandall catheter in good position and thebladder is decompressed. 3. Small amount of abdominal ascites. * Candida Roland PA-C - 01/20/2024 12:14 PM CDT Orthopedic Surgery Osvaldo Zuniga 01/20/2024 Admit Date: 01/15/2024 POD: 3 Days Post-Op Procedure(s): RIGHT REVISION TOTAL KNEE ARTHROPLASTY WITH PLACEMENT OF ANTIBIOTIC SPACER Patient resting comfortably in chair this morning. Pain controlled at rest. Endorses breakthrough post operative pain within expectations. Continue pain regimen Tolerating oral intake. Denies nausea or vomiting Denies chest pain or shortness of breath. On room air today. No acute events overnight Pending TCU placement Reviewed I&O and patient had decent amount of drainage from Hemovac drain yesterday. Will leavefor additional day with plans for ortho ANSHUL to reassess tomorrow for removal. Temp: [97.8 ??F (36.6 ??C)-98 ??F (36.7 ??C)] 98 ??F (36.7 ??C) Pulse: [79-84] 83 Resp: [16-17] 16 BP: (139-149)/(60-67) 149/67 SpO2: [93 %-95 %] 95 % Alert and oriented Dressing is clean, dry, and intact. Minimal erythema of the surrounding skin. Hemovac intact with bloody drainage (125 total yesterday) Bilateral calves are soft, non-tender. Right lower extremity is NVI. Sensation intact bilateral lower extremities Patient able to resist dorsi and plantar flexion bilaterally 2+Dp pulse Labs: Recent Labs Lab Test 01/20/24 0633 01/19/24 0726 01/18/24 0734 01/17/24 0832 01/16/24 0845 WBC -- 6.0 -- 11.4* 12.0* HGB 8.3* 7.5* 7.7* 8.9* 9.2* PLT -- 135* -- 121* 97* No lab results found. Recent Labs Lab Test 01/19/24 0726 01/18/24 0734 01/17/24 0832 CRPI 206.33* 274.19* 330.61* 1. S/p revision of right TKA (01/17/2024) PLAN: Continue ASA 325 mg for DVT prophylaxis. Mobilize with PT/OT WBAT operative extremity. Continue current pain regimen Dressings: Keep intact. Change if >60% saturated or peeling off. Follow-up: 2 weeks post-op with Dr. Francois Disposition Anticipate d/c to TCU when medically cleared and progressing in PT. Candida Roland PA-C * Donnie Woods MD - 01/20/2024 9:[address] images reviewed and the Crandall is in good position and the prostate looks fine. There is a concern over an abscess but that is resolving and appeared mild on my read. At this point, we'll sign off.He'll keep the Crandall on discharge and have it exchanged over a wire in a month. That can be done inour office. Donnie Woods MD * Cecilio Mendoza RN - 01/19/2024 8:00 PM CDT 700-1500 shift Overall Patient Progress : Surgery/POD: Dressing: Incision CDI. Covered with silvestre wrap Cms: intact, edema LE Lab: Lines: Right hand IV- NS infusing, PICC gabriella in place Drains: Hemovac to bulb suction, Orientation: A/Ox4, Forgetful Behavior: Green Diet: Regular, poor intake and output., reported of no appetite, didn't eat much. and patient encourage to get something that patient would like to eat especially he is atking all those medication. Family was encourage to order in advance for patient from the kitchen. Patient and family stated I agree will do that. Vitals/Tele: VSS,Room air Risk For Fall: Yes, Call light in reach at all times. Activity Assistance: AX2 with mervin steady. Skin/Wound: bilateral LE edema, scatted scabs and bruising on the left and right arm. Bowel & Bladder: crandall in place, active bowel sounds Pain Management: Pain manage with cold pack, reposition, PRN and scheduled pain meds. Educated regarding medication and pain management such on how to properly dose, and time. Patient stated I understand. Test/Procedures: N/A Team Following: PT/OT Ortho Hospitalist SW/CC I.D Plan: Pain management discharge to TCU when bed is available. * Susan Moody MD - 01/19/2024 3:[address] [facility] Hospitalist Progress Note Date of Service (when I saw the patient): 01/19/2024 Admit date: 01/15/2024 Interval History Full details of events over last 24 hours outlined below. Pain controlled. Denies any physical concerns. Did well with PT. Anticipate he can discharge to TCUtomorrow. Note hemoglobin is 7.5 after surgery and stable denies any shortness of breath, not lightheaded hemodynamically stable. Chronic swelling, but is increased on IVF. No weights done. Assessment & Plan Osvaldo Zuniga is a 68 year old male with past medical history significant for obesity, type 2 diabetes mellitus, essential hypertension, depression, anxiety, prostate cancer, incidental finding of brain aneurysm on Plavix and hyperlipidemia who was admitted to [facility] to the concern for right knee pain. Patient was later diagnosed with septic arthritis and is transferred to [facility] for orthopedic surgery evaluation and possible surgical intervention. Patient was started on IV vancomycin and had traumatic Crandall catheter insertion for urinary retention, patient has also developed OMAR in the past 24 hours before transfer. Assessment & Plan Patient has undergone right knee replacement in August 2020. Patient was [facility] to 01/06 for infected prosthetic knee joint. On 12/16 he went to the OR for open knee arthrectomy which was well-tolerated. Blood cultures grew a Staph aureus although repeat blood cultures were negative. PICC line was placed on 12/17/20 and patient was discharged with cefazolin/rifampinfor 6 weeks with ID follow-up. Patient has now developed right knee discomfort again in the past few months, was recently evaluated by [facility] orthopedics on Sunday 01/07. According to patient he has been seen by for orthopedic providers in the past few months as he has developed significant discomfort. On 01/12 he woke up with the right knee swollen painful and from and difficulty walking and presented to outside facility where right knee showed a small effusion. WBC count was 9.1 with absolute neutrophil count of 7.8, elevated CRP of 17.8, patient underwent joint aspiration in ED which started to grow Staph aureus with nucleated cells of 118, 000 71% neutrophil counts. Patient was a started onvancomycin and ceftriaxone. Patient is now transferred to [facility] for further surgical intervention. Of note patient initial creatinine was 1.0 on admission after antibiotics were started his creatinine has jumped to 2.21 this morning. Ultrasound of bilateral kidneys showed distended bladder and hydronephrosis Crandall catheter has been placed although patient has poor urine output, CBC Staph aureus right knee septic arthritis: S/p right revision total knee arthroplasty with placement of antibiotic spacer on 01/16 Routine post-operative care, including pain mgt, activity, diet, and DVT prophylaxis, per surgical team. ASA 325 mg for DVT ppx Hemovac drain remains in place in R hip. Mgt per ortho Keep dressing intact change if greater than 60% saturated or peeling off Follow-up with Dr. Francois 2 weeks postop Oxycodone for pain control Continue TOE FORMER STITCHDOWNS Lyrica 75 mg p.o. twice daily On Ancef per ID. Cultures from knee aspirate at outside hospital and OR growing MSSA IV antibiotics for 6 weeks (last day of therapy 02/28/2024) PICC line ordered by ID IV antibiotic at discharge ordered by ID ID follow-up will be arranged in 3 weeks Continue to advise not to pick his skin and wounds as this will increase risk of infection Hold TOE FORMER STITCHDOWNS clobetasol ointment. Chronic normocytic anemia ~ 10.5 Acute post-op anemia Asymptomatic, hemodynamically stable. Transfuse if < 7. Check iron panel and ferritin Recent Labs Lab 01/19/24 0726 01/18/24 0734 01/17/24 0832 01/16/24 0845 HGB 7.5* 7.7* 8.9* 9.2* Acute kidney injury, resolving Urinary retention with bilateral renal hydronephrosis Traumatic catheterization with gas and fluid in the prostate * CT on 01/14: Moderate bilateral hydronephrosis no obstructing stones. Gas and fluid in the prostate gland. May be secondary to traumatic catheter placement, abscess not ruled out. Small amount of gas in the bladder likely related to catheterization. * Cr 2.21 (outside hospital) >> 4.49 had hematuria secondary to crandall catheter trauma Currently denies any symptoms of pain or irritation around the Crandall or lower abdominal pain or rectal pain to suggest prostatitis no fevers. Appreciate Urology consult on 01/16/24 Cystoscopy with complex crandall placement over wire performed at bedside with Dr Woods. Finding of large traumatic false passage. 16F [place] tip crandall placed over wire with cystoscopic guidance for return of about 400cc clear yellow/sandrita urine. Patient tolerated procedure well.CONTINUE CURRENT CRANDALL, DO NOT REMOVE.Will need to follow up with urology for TOV in 2-5 weeks. Appreciate Care by Marilyn Cullen PA-C, on 01/[address] 01/20/24 AM to assess prostate. Patient will call primary urology team to schedule follow-up in 2 to 4 weeks Over 3 L UOP last 24 hours Stop IVF on 01/19/24 Daily BMP, daily weights. Holding TOE FORMER STITCHDOWNS lisinopril , furosemide and Celebrex Vitals: 01/16/24 0532 Weight: 138.3 kg (305 lb) I/O last 3 completed shifts: In: - Out: 2560 [Urine:2450; Drains:110] Recent Labs Lab 01/19/24 0726 01/18/24 0734 01/17/24 0832 01/16/24 0845 CO2 19* 18* 18* 19* NA 137 139 135 132* POTASSIUM 3.8 4.3 4.5 4.1 BUN 47.4* 53.1* 49.3* 48.1* CR 2.19* 3.13* 3.77* 4.49* Chronic lymphedema Patient is morbidly obese and venous insufficiency, including stasis pigmentary changes, hair loss,numerous healed scabs in his extremities Follows with vascular medicine as outpatient His wounds will provide ongoing portals of entry for infection in the future. GERD Continue famotidine 10 mg daily twice daily, TOE FORMER STITCHDOWNS doses as needed History of depression and anxiety: Continue TOE FORMER STITCHDOWNS duloxetine 120 mg p.o. daily Continue TOE FORMER STITCHDOWNS mirtazapine 30 mg at bedtime Essential hypertension: Holding TOE FORMER STITCHDOWNS lisinopril and furosemide in context of OMAR, BP well-controlled on 01/17 As needed hydralazine available Known brain aneurysm, scheduled for clipping on 01/14. Per clinic note with Dr.Kayan Amaya on 12/03: patient was started on ASA and Plavix to prevent stroke around procedure: Per telephone encounter on 01/14 after he was admitted they recommend he stop Plavix and restart protocol when he gets rescheduled for aneurysm clipping. Other chronic medical conditions Hyperlipidemia Obstructive sleep apnea History of prostate cancer Thrombocytopenia - plts stable around 135. 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 Clinically Significant Risk Factors # Hypoalbuminemia: Lowest albumin = 2.5 g/dL at 01/16/2024 8:45 AM, will monitor as appropriate # Severe Obesity: Estimated body mass index is 41.37 kg/m?? as calculated from the following: Height as of this encounter: 1.829 m (6'). Weight as of this encounter: 138.3 kg (305 lb)., PRESENT ON ADMISSION # Financial/Environmental Concerns: none Diet: Orders Placed This Encounter Advance Diet as Tolerated: Regular Diet Adult IVF: NS @ 125 ml/h DVT Prophylaxis: PCDs, per surgery. Crandall Catheter: PRESENT, indication: Acute retention or obstruction, Acute retention or obstruction Full Code Disposition: Anticipate discharge TBD PT/OT Post-op Communication: Discussed with , daughter and patient on 01/17/24 Susan Moody MD Hospitalist Service [facility] Securely message with the [employer] Console (learn more here) Text page via [employer], Broker Paging/Directory -Data reviewed today: I reviewed all new labs and imaging results over the last 24 hours. I personally reviewed no images or EKG's today. Physical Exam Temp: 97.7 ??F (36.5 ??C) Temp src: Oral BP: 136/59 Pulse: 80 Resp: 15 SpO2: 94 % O2 Device: None (Room air) Vitals: 01/16/24 0532 Weight: 138.3 kg (305 lb) Vital Signs with Ranges Temp: [97.7 ??F (36.5 ??C)-98 ??F (36.7 ??C)] 97.7 ??F (36.5 ??C) Pulse: [78-88] 80 Resp: [15-16] 15 BP: (112-136)/(48-59) 136/59 SpO2: [91 %-94 %] 94 % I/O last 3 completed shifts: In: - Out: 2560 [Urine:2450; Drains:110] Today's Exam Constitutional: NAD, Neuropsyche: alert and oriented, answers questions appropriately. Respiratory: Breathing comfortably, good air exchange, no wheezes, no crackles. Cardiovascular: Regular rate and rhythm, 2+ edema. GI: soft, NT/ND, BS normal Skin/Integumen: Chronic venous stasis changes. Sores from skin picking on upper extremities. No acute rash, sign of bleeding. Medications All medications reviewed on 01/19/24 Current Facility-Administered Medications Medication Dose Route Frequency Provider Last Rate Last Admin lactated ringers infusion Intravenous Continuous Susan Moody MD 75 mL/hr at 01/19/24 0448 New Bag at 01/19/24 0448 Current Facility-Administered Medications Medication Dose Route Frequency Provider Last Rate Last Admin acetaminophen (TYLENOL) tablet 975 mg 975 mg Oral Q8H Albania Jackson PA-C 975 mg at 01/19/24 1357 aspirin (ASA) EC tablet 325 mg 325 mg Oral Daily Albania Jackson PA-C 325 mg at 01/19/24 0936 atorvastatin (LIPITOR) tablet 10 mg 10 mg Oral Daily Karlie Rosenthal MD 10 mg at 01/19/24 0936 ceFAZolin (ANCEF) 2 g in 100 mL D5W intermittent infusion 2 g Intravenous Q8H Jason Walker MD 200 mL/hr at 01/19/24 1258 2 g at 01/19/24 1258 DULoxetine (CYMBALTA) DR capsule 120 mg 120 mg Oral Daily Karlie Rosenthal MD 120 mg at 01/19/24935 famotidine (PEPCID) tablet 20 mg 20 mg Oral At Bedtime Albania Jackson PA-C 20 mg at 01/18/242124 Or famotidine (PEPCID) injection 20 mg 20 mg Intravenous At Bedtime Albania Jackson PA-C lidocaine (XYLOCAINE) 2 % external gel Urethral Once Barby Urbano PA-C mirtazapine (REMERON) tablet 15 mg 15 mg Oral At Bedtime Karlie Rosenthal MD 15 mg at 01/18/242123 polyethylene glycol (MIRALAX) Packet 17 g 17 g Oral Daily Albania Jackson PA-C 17 g at 01/18/24904 pregabalin (LYRICA) capsule 75 mg 75 mg Oral BID Karlie Rosenthal MD 75 mg at 01/19/24935 senna-docusate (SENOKOT-S/PERICOLACE) 8.6-50 MG per tablet 1 tablet 1 tablet Oral BID Karlie Rosenthal MD 1 tablet at 01/18/24 09 Or senna-docusate (SENOKOT-S/PERICOLACE) 8.6-50 MG per tablet 2 tablet 2 tablet Oral BID Karlie Rosenthal MD 2 tablet at 01/18/242124 sodium chloride (PF) 0.9% PF flush 10-40 mL 10-40 mL Intracatheter Q8H Mervin Banegas PA-C 3 mL at 01/19/24 1357 sodium chloride (PF) 0.9% PF flush 3 mL 3 mL Intracatheter Q8H Albania Jackson PA-C 3 mL at 01/18/24 1336 sodium chloride (PF) 0.9% PF flush 3 mL 3 mL Intracatheter Q8H Karlie Rosenthal MD 3 mL at 01/19/24 1433 tamsulosin (FLOMAX) capsule 0.8 mg 0.8 mg Oral Daily Karlie Rosenthal MD 0.8 mg at 01/19/24 0936 PRN Meds: Current Facility-Administered Medications Medication Dose Route Frequency Provider Last Rate Last Admin [START ON 01/20/2024] acetaminophen (TYLENOL) tablet 650 mg 650 mg Oral Q4H PRN Albania Jackson PA-C benzocaine-menthol (CHLORASEPTIC) 6-10 MG lozenge 1 lozenge 1 lozenge Buccal Q1H PRN Albania Jackson PA-C bisacodyl (DULCOLAX) suppository 10 mg 10 mg Rectal Daily PRN Albania Jackson PA-C calcium carbonate (TUMS) chewable tablet 1,000 mg 1,000 mg Oral 4x Daily PRN Karlie Rosenthal MD hydrALAZINE (APRESOLINE) tablet 10 mg 10 mg Oral Q4H PRN Karlie Rosenthal MD Or hydrALAZINE (APRESOLINE) injection 10 mg 10 mg Intravenous Q4H PRN Karlie Rosenthal MD HYDROmorphone (DILAUDID) injection 0.1 mg 0.1 mg Intravenous Q2H PRN Albania Jackson PA-C Or HYDROmorphone (DILAUDID) injection 0.2 mg 0.2 mg Intravenous Q2H PRN Albania Jackson PA-C 0.2 mg at01/19/24 1453 hydrOXYzine HCl (ATARAX) tablet 10 mg 10 mg Oral Q6H PRN Albania Jackson PA-C 10 mg at 01/19/24 0937 lidocaine (LMX4) cream Topical Q1H PRN Karlie Rosenthal MD lidocaine (XYLOCAINE) 2 % external gel Urethral Q4H PRN Barby Urbano PA-C lidocaine (XYLOCAINE) 2 % external gel Urethral Once PRN Christine Ugalde MD lidocaine 1 % 0.1-1 mL 0.1-1 mL Other Q1H PRN Karlie Rosenthal MD lidocaine 1 % 0.1-5 mL 0.1-5 mL Other Q1H PRN Mervin Banegas PA-C 2 mL at 01/19/24 1348 magnesium hydroxide (MILK OF MAGNESIA) suspension 30 mL 30 mL Oral Daily PRN Albania Jackson PA-C melatonin tablet 1 mg 1 mg Oral At Bedtime PRN Karlie Rosenthal MD naloxone (NARCAN) injection 0.2 mg 0.2 mg Intravenous Q2 Min PRN Marilyn Kolb RPH Or naloxone (NARCAN) injection 0.4 mg 0.4 mg Intravenous Q2 Min PRN Hoiness, Marilyn, RPH Or naloxone (NARCAN) injection 0.2 mg 0.2 mg Intramuscular Q2 Min PRN Hoiness, Marilyn, RPH Or naloxone (NARCAN) injection 0.4 mg 0.4 mg Intramuscular Q2 Min PRN Hoiness, Marilyn, RPH ondansetron (ZOFRAN ODT) ODT tab 4 mg 4 mg Oral Q6H PRN Albania Jackson PA-C Or ondansetron (ZOFRAN) injection 4 mg 4 mg Intravenous Q6H PRN Albania Jackson PA-C oxyCODONE IR (ROXICODONE) half-tab 2.5 mg 2.5 mg Oral Q4H PRN Albania Jackson PA-C 2.5 mg at 01/19/24 1029 Or oxyCODONE (ROXICODONE) tablet 5 mg 5 mg Oral Q4H PRN Albania Jackson PA-C 5 mg at 01/19/24 1357 prochlorperazine (COMPAZINE) injection 5 mg 5 mg Intravenous Q6H PRN Albania Jackson PA-C Or prochlorperazine (COMPAZINE) tablet 5 mg 5 mg Oral Q6H PRN Albania Jackson PA-C senna-docusate (SENOKOT-S/PERICOLACE) 8.6-50 MG per tablet 1 tablet 1 tablet Oral BID PRN Karlie Rosenthal MD Or senna-docusate (SENOKOT-S/PERICOLACE) 8.6-50 MG per tablet 2 tablet 2 tablet Oral BID PRN Karlie Rosenthal MD sodium chloride (PF) 0.9% PF flush 10-20 mL 10-20 mL Intracatheter q1 min prn Mervin Banegas PA-C sodium chloride (PF) 0.9% PF flush 3 mL 3 mL Intracatheter q1 min prn Albania Jackson PA-C sodium chloride (PF) 0.9% PF flush 3 mL 3 mL Intracatheter q1 min prn Karlie Rosenthal MD zolpidem (AMBIEN) tablet 5 mg 5 mg Oral At Bedtime PRN Karlie Rosenthal MD Data Recent Labs Lab 01/19/24 0726 01/18/24 0734 01/17/24201501/17/24 1124 01/17/24 0832 01/16/24 2215 01/16/24 0845 WBC 6.0 -- -- -- 11.4* -- 12.0* HGB 7.5* 7.7* -- -- 8.9* -- 9.2* MCV 82 -- -- -- 82 -- 84 PLT 135* -- -- -- 121* -- 97* NA 137 139 -- -- 135 -- 132* POTASSIUM 3.8 4.3 -- -- 4.5 -- 4.1 CHLORIDE 106 106 -- -- 103 -- 99 CO2 19* 18* -- -- 18* -- 19* BUN 47.4* 53.1* -- -- 49.3* -- 48.1* CR 2.19* 3.13* -- -- 3.77* -- 4.49* ANIONGAP 12 15 -- -- 14 -- 14 TOM 8.2* 8.1* -- -- 8.3* -- 8.0* GLC 109* 116* 123* < > 138* < > 119* ALBUMIN -- -- -- -- -- -- 2.5* PROTTOTAL -- -- -- -- -- -- 6.4 BILITOTAL -- -- -- -- -- -- 1.4* ALKPHOS -- -- -- -- -- -- 122 ALT -- -- -- -- -- -- 16 AST -- -- -- -- -- -- 19 < > = values in this interval not displayed. Recent Results (from the past 24 hour(s)) XR Chest Port 1 View Narrative CHEST ONE VIEW 01/19/2024 2:12 PM HISTORY: RN placed PICC - verify tip placement. COMPARISON: None available. Impression IMPRESSION: Right PICC tip at the mid SVC approximately 6 cm from the cavoatrial junction. Right lung and visualized left lung proctor are clear. Grossly unremarkable cardiomediastinal silhouette. SVITLANA ASCENCIO MD SYSTEM ID: [id number] * Rick Rogers - 01/19/2024 2:29 PM CDT Care Management Follow Up Length of Stay (days): 4 Expected Discharge Date: 01/20/2024 Concerns to be Addressed: Patient plan of care discussed at interdisciplinary rounds: Yes Anticipated Discharge Disposition: Home, Home Care, Home Infusion, Transitional Care Anticipated Discharge Services: None Anticipated Discharge DME: None Patient/family educated on Medicare website which has current facility and service quality ratings:no Education Provided on the Discharge Plan: Patient/Family in Agreement with the Plan: yes Referrals Placed by CM/SW: Internal Clinic Care Coordination, Home Infusion Private pay costs discussed: private room/amenity fees, transportation costs, and insurance costs co-pays Additional Information: Property Field Adjuster met with the patient in the a.m. sign writer hand went over insurance coverage (therapies/meds/room and board) and what is not covered (private room/transportation). Property Field Adjuster provided TCU list for the patient. Patient [place] [facility] Patient requested some time to look it over with family later today. Property Field Adjuster followed up with spouse and daughter at bedside. Family requested referral sent to [facility], [address] [place] [address], and [facility]. Referral sent [facility] Social Work * Mervin Banegas PA-C - 01/19/2024 1:[address] [facility] Infectious Disease Progress Note Date of Service (when I saw the patient): 01/19/2024 Assessment & Plan Osvaldo Zuniga is a 68 year old who was admitted on 01/15/2024. Impression: 68 yo male with a history of obesity, DM, HTN, depression/anxiety, prostate cancer, brain aneurysm,and hyperlipidemia who had a right knee replacement in 08/2020. This was complicated by infection with MSSA and he underwent revision, debridement with poly exchange and antibiotic bead treatment in 11/2020 followed by 6 weeks IV Ancef and Rifampin and then 3 months of Cefadroxil. 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 -Cultures from knee aspirate at outside hospital with MSSA, resistant only to Clindamycin. -CRP is 302. Mild leukocytosis. -S/p revision of right TKA with placement of antibiotic spacer 01/17/24.Operative cultures with staphaureus. -OMAR with traumatic/misplaced crandall and noted bilateral hydronephrosis on renal ultrasound. Has hx of prostate cancer. -Recently diagnosed brain aneurysm, which was supposed to be clipped 01/14 but this has been delayeddue to current hospitalization. -Has lymphedema and chronic venous stasis. -He has multiple superficial wounds due to picking at skin. Recommendations: Continue Ancef. Will need 6 weeks of IV antibiotics (last day of therapy will be 02/28/24). Orders placed in discharge navigator. Following operative and blood cultures. Place PICC (ordered). Will arrange follow-up with ID in about 3 weeks. Advised that he try not to pick at skin and wounds as these can then contribute to infection. Patient and plan discussed with Dr. Johnson. Mervin Banegas PA-C Interval History Tolerating antibiotics ok No new rashes or issues with antibiotics Knee pain is significantly improved after surgery. Labs reviewed No changes to past medical, social or family history Physical Exam Temp: 97.7 ??F (36.5 ??C) Temp src: Oral BP: 136/59 Pulse: 80 Resp: 15 SpO2: 94 % O2 Device: None (Room air) Vitals: 01/16/24 0532 Weight: 138.3 kg (305 lb) Vital Signs with Ranges Temp: [97.7 ??F (36.5 ??C)-98 ??F (36.7 ??C)] 97.7 ??F (36.5 ??C) Pulse: [78-88] 80 Resp: [15-16] 15 BP: (112-136)/(48-59) 136/59 SpO2: [91 %-94 %] 94 % Constitutional: Awake, alert, cooperative, no apparent distress Lungs: Clear to auscultation bilaterally, no crackles or wheezing Cardiovascular: Regular rate and rhythm, normal S1 and S2, and no murmur noted Abdomen: Normal bowel sounds, soft, non-distended, non-tender Skin: No rashes, no cyanosis, no edema. Right knee in dressing with hemovac. He has multiple scabs on his skin from picking at it. Other: Medications Current Facility-Administered Medications Medication Dose Route Frequency Provider Last Rate Last Admin lactated ringers infusion Intravenous Continuous Susan Moody MD 75 mL/hr at 01/19/24 0448 New Bag at 01/19/24 0448 Current Facility-Administered Medications Medication Dose Route Frequency Provider Last Rate Last Admin acetaminophen (TYLENOL) tablet 975 mg 975 mg Oral Q8H Albania Jackson PA-C 975 mg at 01/19/24 0436 aspirin (ASA) EC tablet 325 mg 325 mg Oral Daily Albania Jackson PA-C 325 mg at 01/19/24 0936 atorvastatin (LIPITOR) tablet 10 mg 10 mg Oral Daily Karlie Rosenthal MD 10 mg at 01/19/24 0936 ceFAZolin (ANCEF) 2 g in 100 mL D5W intermittent infusion 2 g Intravenous Q8H aJson Walker MD 200 mL/hr at 01/19/24 1258 2 g at 01/19/24 1258 DULoxetine (CYMBALTA) DR capsule 120 mg 120 mg Oral Daily Karlie Rosenthal MD 120 mg at 01/19/24935 famotidine (PEPCID) tablet 20 mg 20 mg Oral At Bedtime Albania Jackson PA-C 20 mg at 01/18/242124 Or famotidine (PEPCID) injection 20 mg 20 mg Intravenous At Bedtime Albania Jackson PA-C lidocaine (XYLOCAINE) 2 % external gel Urethral Once Barby Urbano PA-C mirtazapine (REMERON) tablet 15 mg 15 mg Oral At Bedtime Karlie Rosenthal MD 15 mg at 01/18/242123 polyethylene glycol (MIRALAX) Packet 17 g 17 g Oral Daily Albania Jackson PA-C 17 g at 01/18/24 09 pregabalin (LYRICA) capsule 75 mg 75 mg Oral BID Karlie Rosenthal MD 75 mg at 01/19/24 0936 senna-docusate (SENOKOT-S/PERICOLACE) 8.6-50 MG per tablet 1 tablet 1 tablet Oral BID Karlie Rosenthal MD 1 tablet at 01/18/24 0904 Or senna-docusate (SENOKOT-S/PERICOLACE) 8.6-50 MG per tablet 2 tablet 2 tablet Oral BID Karlie Rosenthal MD 2 tablet at 01/18/24 2125 sodium chloride (PF) 0.9% PF flush 10-40 mL 10-40 mL Intracatheter Q8H Mervin Banegas PA-C sodium chloride (PF) 0.9% PF flush 3 mL 3 mL Intracatheter Q8H Albania Jackson PA-C 3 mL at 01/18/24 1336 sodium chloride (PF) 0.9% PF flush 3 mL 3 mL Intracatheter Q8H Karlie Rosenthal MD 3 mL at 01/18/24 1336 tamsulosin (FLOMAX) capsule 0.8 mg 0.8 mg Oral Daily Karlie Rosenthal MD 0.8 mg at 01/19/24 0936 Data All microbiology laboratory data reviewed. Recent Labs Lab Test 01/19/24 0726 01/18/24 0734 01/17/24 0832 01/16/24 0845 WBC 6.0 -- 11.4* 12.0* HGB 7.5* 7.7* 8.9* 9.2* HCT 22.7* -- 27.0* 27.9* MCV 82 -- 82 84 PLT 135* -- 121* 97* Recent Labs Lab Test 01/19/24 0726 01/18/24 0734 01/17/24 0832 CR 2.19* 3.13* 3.77* Recent Labs Lab Test 01/16/24 0845 SED 79* CRP Inflammation Date Value Ref Range Status 01/19/2024 206.33 (H) <5.00 mg/L Final Blood cultures 01/15: no growth to date MRSA nares negative Operative cultures with Staph aureus Aspiration cultures at outside hospital from right knee with MSSA resistant only to Clindamycin. * Candida Roland PA-C - 01/19/2024 10:44 AM CDT Orthopedic Surgery Osvaldo Zuniga 01/19/2024 Admit Date: 01/15/2024 POD: 2 Days Post-Op Procedure(s): RIGHT REVISION TOTAL KNEE ARTHROPLASTY WITH PLACEMENT OF ANTIBIOTIC SPACER Patient resting comfortably in bed. Pain controlled at rest. Tolerating oral intake. Denies nausea or vomiting Denies chest pain or shortness of breath. On room air today. No acute events overnight Temp: [97.7 ??F (36.5 ??C)-98 ??F (36.7 ??C)] 97.7 ??F (36.5 ??C) Pulse: [78-88] 80 Resp: [16] 16 BP: (112-136)/(48-59) 136/59 SpO2: [91 %-94 %] 94 % Alert and oriented Dressing is clean, dry, and intact. Minimal erythema of the surrounding skin. Bilateral calves are soft, non-tender. Right lower extremity is NVI. Sensation intact bilateral lower extremities Patient able to resist dorsi and plantar flexion bilaterally 2+Dp pulse Labs: Recent Labs Lab Test 01/19/24 0726 01/18/24 0734 01/17/24 0832 01/16/24 0845 WBC 6.0 -- 11.4* 12.0* HGB 7.5* 7.7* 8.9* 9.2* PLT 135* -- 121* 97* No lab results found. Recent Labs Lab Test 01/19/24 0726 01/18/24 0734 01/17/24 0832 CRPI 206.33* 274.19* 330.61* 1. PLAN: Monitor hemoglobin closely. Continue ASA 325 mg for DVT prophylaxis. Mobilize with PT/OT WBAT operative extremity. Continue current pain regimen Dressings: Keep intact. Change if >60% saturated or peeling off. Follow-up: 2 weeks post-op with Dr. Francois 2. Disposition Anticipate d/c to TCU when medically cleared and progressing in PT. Candida Roland PA-C * Barby Urbano PA-C - 01/19/2024 10:[address] [facility] Urology Progress Note Assessment & Plan Osvaldo Zuniga is a 68 year old male who was admitted on 01/15/2024. Urology following for difficult crandall placement requiring cystoscopy (Dr. Woods on 01/15) for traumatic/malplaced crandall resulting inbilateral hydronephrosis and false passage Interval History Tolerating crandall well, urine clear. Denies fever, pelvic pain. Has not been ambulating since ortho surgery Cr improving, 2.19 today RN discussing timing of crandall removal at bedside Plan: - DO NOT REMOVE CRANDALL, continue crandall 2-4 weeks, RN to teach leg bag cares prior to discharge - Repeat CT tomorrow prior to discharge to evaluate for resolution of hydronephrosis and previouslynoted gas and air within the prostate; ordered - Patient will call his primary urology team to schedule follow up appointment in 2-4 weeks Urology will follow CT results. Please page urologist cloud operations engineer if any additional urologic concerns over the weekend. Barby Urbano PA-C [facility] Pager: [phone] Office: [phone] OBJECTIVE: BP 136/59 (BP Location: Right arm) Pulse 80 Temp 97.7 ??F (36.5 ??C) (Oral) Resp 16 Ht 1.829 m (6') Wt 138.3 kg (305 lb) SpO2 94% BMI 41.37 kg/m?? General appearance shows no deformaties and good grooming in no acute distress. EYES: no icterus HEAD, EARS, NOSE, MOUTH, AND THROAT: atraumatic, normocephalic RESPIRATORY: breathing unlabored : Crandall draining clear urine SKIN/HAIR/NAILS: no visible rashes NEUROLOGIC: no focal deficits PSYCHIATRIC: Speech, mood, and affect normal Barby Urbano PA-C [facility] Pager: [phone] Office: [phone] * Alexia Hernandez RN - 01/18/2024 8:30 PM CDT Notification Notified Person: Notified Person Name:Eduarda Aguirre Notification Date/Time:01/18/24 @ 2028 Notification Interaction:[employer] Web Purpose of Notification:9603 (BF) Synovial fluid collected yesterday result :Gram positive cocci N clusters Orders Received: Comments: * Susan Moody MD - 01/18/2024 3:[address] [facility] Hospitalist Progress Note Date of Service (when I saw the patient): 01/18/2024 Admit date: 01/15/2024 Interval History Full details of events over last 24 hours outlined below. Waiting for surgery. Anxious to eat again. Pain controlled. No concerns. Discussed recent history and I answered questions about recent events and plan going forward. Assessment & Plan Osvaldo Zuniga is a 68 year old male with past medical history significant for obesity, type 2 diabetes mellitus, essential hypertension, depression, anxiety, prostate cancer, incidental finding of brain aneurysm on Plavix and hyperlipidemia who was admitted to [facility] to the concern for right knee pain. Patient was later diagnosed with septic arthritis and is transferred to [facility] for orthopedic surgery evaluation and possible surgical intervention. Patient was started on IV vancomycin and had traumatic Crandall catheter insertion for urinary retention, patient has also developed OMAR in the past 24 hours before transfer. Assessment & Plan Staph aureus right knee septic arthritis: Patient has undergone right knee replacement in August 2020. Patient was [facility] to [facility]/06 for infected prosthetic knee joint. On 12/16 he went to the OR for open knee arthrectomy which was well-tolerated. Blood cultures grew a Staph aureus although repeat blood cultures were negative. PICC line was placed on 12/17/20 and patient was discharged with cefazolin/rifampinfor 6 weeks with ID follow-up. Patient has now developed right knee discomfort again in the past few months, was recently evaluated by [facility] orthopedics on Sunday 01/07. According to patient he has been seen by for orthopedic providers in the past few months as he has developed significant discomfort. On 01/12 he woke up with the right knee swollen painful and from and difficulty walking and presented to outside facility where right knee showed a small effusion. WBC count was 9.1 with absolute neutrophil count of 7.8, elevated CRP of 17.8, patient underwent joint aspiration in ED which started to grow Staph aureus with nucleated cells of 118, 000 71% neutrophil counts. Patient was a started onvancomycin and ceftriaxone. Patient is now transferred to [facility] for further surgical intervention. Of note patient initial creatinine was 1.0 on admission after antibiotics were started his creatinine has jumped to 2.21 this morning. Ultrasound of bilateral kidneys showed distended bladder and hydronephrosis Crandall catheter has been placed although patient has poor urine output, CBC S/p right revision total knee arthroplasty with placement of antibiotic spacer on 01/16 Routine post-operative care, including pain mgt, activity, diet, and DVT prophylaxis, per surgical team. Per Ortho note on 01/17 continue TOE FORMER STITCHDOWNS Plavix plus aspirin 325 mg for DVT prophylaxis However, Plavix was stopped when brain aneurysm clipping was canceled. This was only indicated to reduce risk of thromboembolic complications around procedure. Have called Ortho regarding their preferred DVT prophylaxis. Remains on ASA 325 mg daily. Activity as tolerated with fall precautions although patient activity is limited due to pain. Hold TOE FORMER STITCHDOWNS alendronate. Oxycodone for pain control Continue TOE FORMER STITCHDOWNS Lyrica 75 mg p.o. twice daily ID consulted > Linezolid changed to ancef based on [place] knee aspirate cultures growing MSSA, resistant only to clinda. Cx here remain negative. Hold TOE FORMER STITCHDOWNS clobetasol ointment. Acute kidney injury, resolving Urinary retention with bilateral renal hydronephrosis Traumatic catheterization with gas and fluid in the prostate * CT on 01/14: Moderate bilateral hydronephrosis no obstructing stones. Gas and fluid in the prostate gland. May be secondary to traumatic catheter placement, abscess not ruled out. Small amount of gas in the bladder likely related to catheterization. * Cr 2.21 (outside hospital) >> 4.49 had hematuria secondary to crandall catheter trauma Currently denies any symptoms of pain or irritation around the Crandall or lower abdominal pain or rectal pain to suggest prostatitis no fevers. Appreciate Urology consult on 01/16/24 Cystoscopy with complex crandall placement over wire performed at bedside with Dr Woods. Finding of large traumatic false passage. 16F [place] tip crandall placed over wire with cystoscopic guidance for return of about 400cc clear yellow/sandrita urine. Patient tolerated procedure well.CONTINUE CURRENT CRANDALL, DO NOT REMOVE.Will need to follow up with urology for TOV in 2-5 weeks. Appreciate Care by Marilyn Cullen PA-C, on 01/[address] scan prior to discharge toevaluate for resolution of hydronephrosis and air within the prostate. Over 3 L UOP last 24 hours. Decrease LR @75 cc/h, for post retention diuresis daily BMP Holding TOE FORMER STITCHDOWNS lisinopril , furosemide and Celebrex Vitals: 01/16/24 0532 Weight: 138.3 kg (305 lb) I/O last 3 completed shifts: In: 2610 [P.O.:960; I.V.:1400] Out: 2095 [Urine:1700; Drains:195; Blood:200] Recent Labs Lab 01/18/24 0734 01/17/24 0832 01/16/24 0845 CO2 18* 18* 19* NA 139 135 132* POTASSIUM 4.3 4.5 4.1 BUN 53.1* 49.3* 48.1* CR 3.13* 3.77* 4.49* PAD Patient is morbidly obese and has significant PAD, including stasis pigmentary changes, hair loss, numerous healed scabs in his extremities recommend vascular medicine consultation after surgery as outpatient his wounds will provide ongoing portals of entry for infection in the future. GERD Continue famotidine 10 mg daily twice daily, TOE FORMER STITCHDOWNS doses as needed History of depression and anxiety: Continue TOE FORMER STITCHDOWNS duloxetine 120 mg p.o. daily Continue TOE FORMER STITCHDOWNS mirtazapine 30 mg at bedtime Essential hypertension: Holding TOE FORMER STITCHDOWNS lisinopril and furosemide in context of OMAR, BP well-controlled on 01/17 As needed hydralazine available Known brain aneurysm, scheduled for clipping on 01/14. Per clinic note with Dr.Kayan Amaya on 12/03: Started on ASA and plavix prior to procedure, patient was started on ASA and Plavix to prevent stroke around procedure: Patients being treated for brain aneurysms by endovascular means are required to be on dual antiplatelet therapy to prevent stroke from thromboembolic complications. Our first line medications are aspirin and clopidogrel. Therapy effect testing required day prior to procedure. We discussed that the main risk of taking antiplatelet medications is that of abnormal bleeding. Discussed the length oftime on clopidogrel following the procedure depends on device uses during treatment. Dr. Alberto believes you would be taken off clopidogrel following procedure but that is not guaranteed, could be continued on clopidogrel for 6-9 months following the procedure to prevent stroke in the event a different device needed in treatment. Per telephone encounter on 01/14 after he was admitted they recommend he stop Plavix and restart protocol when he gets rescheduled for aneurysm clipping. Other chronic medical conditions Hyperlipidemia Obstructive sleep apnea History of prostate cancer Thrombocytopenia Neurodermatitis Clinically Significant Risk Factors # Hypoalbuminemia: Lowest albumin = 2.5 g/dL at 01/16/2024 8:45 AM, will monitor as appropriate # Thrombocytopenia: Lowest platelets = 121 in last 2 days, will monitor for bleeding # Severe Obesity: Estimated body mass index is 41.37 kg/m?? as calculated from the following: Height as of this encounter: 1.829 m (6'). Weight as of this encounter: 138.3 kg (305 lb)., PRESENT ON ADMISSION # Financial/Environmental Concerns: none Diet: Orders Placed This Encounter Advance Diet as Tolerated: Regular Diet Adult IVF: NS @ 125 ml/h DVT Prophylaxis: PCDs, per surgery. Crandall Catheter: PRESENT, indication: (P) Acute retention or obstruction, Acute retention or obstruction Full Code Disposition: Anticipate discharge TBD PT/OT Post-op Communication: Discussed with , daughter and patient on 01/17/24 Susan Moody MD Hospitalist Service [facility] Securely message with the [employer] Console (learn more here) Text page via [employer], Broker Paging/Directory -Data reviewed today: I reviewed all new labs and imaging results over the last 24 hours. I personally reviewed no images or EKG's today. Physical Exam Temp: 97.7 ??F (36.5 ??C) Temp src: Oral BP: 110/54 Pulse: 83 Resp: 10 SpO2: 98 % O2 Device: Nasal cannula Oxygen Delivery: 1 LPM Vitals: 01/16/24 0532 Weight: 138.3 kg (305 lb) Vital Signs with Ranges Temp: [97.7 ??F (36.5 ??C)-99.1 ??F (37.3 ??C)] 97.7 ??F (36.5 ??C) Pulse: [80-96] 83 Resp: [10-18] 10 BP: (100-138)/(43-60) 110/54 SpO2: [91 %-98 %] 98 % I/O last 3 completed shifts: In: 2610 [P.O.:960; I.V.:1400] Out: 2094 [Urine:1700; Drains:195; Blood:200] Today's Exam Constitutional: NAD, Neuropsyche: alert and oriented, answers questions appropriately. Respiratory: Breathing comfortably, good air exchange, no wheezes, no crackles. Cardiovascular: Regular rate and rhythm, 1-2+ edema. GI: soft, NT/ND, BS normal Skin/Integumen: Chronic venous stasis changes. Sores from skin picking on upper extremities. No acute rash, sign of bleeding. Medications All medications reviewed on 01/18/24 Current Facility-Administered Medications Medication Dose Route Frequency Provider Last Rate Last Admin lactated ringers infusion Intravenous Continuous Albania Jackson PA-C Stopped at 01/18/24 0506 sodium chloride 0.9 % infusion Intravenous Continuous Susan Moody MD Stopped at 01/17/24 2251 Current Facility-Administered Medications Medication Dose Route Frequency Provider Last Rate Last Admin acetaminophen (TYLENOL) tablet 975 mg 975 mg Oral Q8H Albania Jackson PA-C 975 mg at 01/18/24 1328 aspirin (ASA) EC tablet 325 mg 325 mg Oral Daily Albania Jackson PA-C 325 mg at 01/18/24 0905 atorvastatin (LIPITOR) tablet 10 mg 10 mg Oral Daily Karlie Rosenthal MD 10 mg at 01/18/24 0904 ceFAZolin (ANCEF) 2 g in 100 mL D5W intermittent infusion 2 g Intravenous Q12H Urbano Johnson MD 200mL/hr at 01/18/24 0459 2 g at 01/18/24 0459 DULoxetine (CYMBALTA) DR capsule 120 mg 120 mg Oral Daily Karlie Rosenthal MD 120 mg at 01/18/24 0903 famotidine (PEPCID) tablet 20 mg 20 mg Oral At Bedtime Albania Jackson PA-C 20 mg at 01/17/24 2252 Or famotidine (PEPCID) injection 20 mg 20 mg Intravenous At Bedtime Albania Jackson PA-C lidocaine (XYLOCAINE) 2 % external gel Urethral Once Barby Urbano PA-C mirtazapine (REMERON) tablet 15 mg 15 mg Oral At Bedtime Karlie Rosenthal MD 15 mg at 01/17/24 225 polyethylene glycol (MIRALAX) Packet 17 g 17 g Oral Daily Albania Jackson PA-C 17 g at 01/18/24 09 pregabalin (LYRICA) capsule 75 mg 75 mg Oral BID Karlie Rosenthal MD 75 mg at 01/18/24 09 senna-docusate (SENOKOT-S/PERICOLACE) 8.6-50 MG per tablet 1 tablet 1 tablet Oral BID Karlie Rosenthal MD 1 tablet at 01/18/24 0904 Or senna-docusate (SENOKOT-S/PERICOLACE) 8.6-50 MG per tablet 2 tablet 2 tablet Oral BID Karlie Rosenthal MD sodium chloride (PF) 0.9% PF flush 3 mL 3 mL Intracatheter Q8H Albania Jackson PA-C 3 mL at 01/18/24 1336 sodium chloride (PF) 0.9% PF flush 3 mL 3 mL Intracatheter Q8H Karlie Rosenthal MD 3 mL at 01/18/24 1336 tamsulosin (FLOMAX) capsule 0.8 mg 0.8 mg Oral Daily Karlie Rosenthal MD 0.8 mg at 01/18/24 0904 PRN Meds: Current Facility-Administered Medications Medication Dose Route Frequency Provider Last Rate Last Admin [START ON 01/20/2024] acetaminophen (TYLENOL) tablet 650 mg 650 mg Oral Q4H PRN Albania Jackson PA-C benzocaine-menthol (CHLORASEPTIC) 6-10 MG lozenge 1 lozenge 1 lozenge Buccal Q1H PRN Albania Jackson PA-C bisacodyl (DULCOLAX) suppository 10 mg 10 mg Rectal Daily PRN Albania Jackson PA-C calcium carbonate (TUMS) chewable tablet 1,000 mg 1,000 mg Oral 4x Daily PRN Karlie Rosenthal MD hydrALAZINE (APRESOLINE) tablet 10 mg 10 mg Oral Q4H PRN Karlie Rosenthal MD Or hydrALAZINE (APRESOLINE) injection 10 mg 10 mg Intravenous Q4H PRN Karlie Rosenthal MD HYDROmorphone (DILAUDID) injection 0.1 mg 0.1 mg Intravenous Q2H PRN Albania Jackson PA-C Or HYDROmorphone (DILAUDID) injection 0.2 mg 0.2 mg Intravenous Q2H PRN Albania Jackson PA-C hydrOXYzine HCl (ATARAX) tablet 10 mg 10 mg Oral Q6H PRN Albania Jackson PA-C 10 mg at 01/18/24 1328 lidocaine (LMX4) cream Topical Q1H PRN Karlie Rosenthal MD lidocaine (XYLOCAINE) 2 % external gel Urethral Q4H PRN Barby Urbano PA-C lidocaine (XYLOCAINE) 2 % external gel Urethral Once PRN Christine Ugalde MD lidocaine 1 % 0.1-1 mL 0.1-1 mL Other Q1H PRN Karlie Rosenthal MD magnesium hydroxide (MILK OF MAGNESIA) suspension 30 mL 30 mL Oral Daily PRN Albania Jackson PA-C melatonin tablet 1 mg 1 mg Oral At Bedtime PRN Karlie Rosenthal MD naloxone (NARCAN) injection 0.2 mg 0.2 mg Intravenous Q2 Min PRN Hoiness, Marliyn, RPH Or naloxone (NARCAN) injection 0.4 mg 0.4 mg Intravenous Q2 Min PRN Hoiness, Marilyn, RPH Or naloxone (NARCAN) injection 0.2 mg 0.2 mg Intramuscular Q2 Min PRN Hoiness, Marilyn, RPH Or naloxone (NARCAN) injection 0.4 mg 0.4 mg Intramuscular Q2 Min PRN Hoiness, Marilyn, RPH ondansetron (ZOFRAN ODT) ODT tab 4 mg 4 mg Oral Q6H PRN Albania Jackson PA-C Or ondansetron (ZOFRAN) injection 4 mg 4 mg Intravenous Q6H PRN Albania Jackson PA-C oxyCODONE IR (ROXICODONE) half-tab 2.5 mg 2.5 mg Oral Q4H PRN Albania Jackson PA-C Or oxyCODONE (ROXICODONE) tablet 5 mg 5 mg Oral Q4H PRN Albania Jackson PA-C 5 mg at 01/18/24 0905 prochlorperazine (COMPAZINE) injection 5 mg 5 mg Intravenous Q6H PRN Albania Jackson PA-C Or prochlorperazine (COMPAZINE) tablet 5 mg 5 mg Oral Q6H PRN Albania Jackson PA-C senna-docusate (SENOKOT-S/PERICOLACE) 8.6-50 MG per tablet 1 tablet 1 tablet Oral BID PRN Karlie Rosenthal MD Or senna-docusate (SENOKOT-S/PERICOLACE) 8.6-50 MG per tablet 2 tablet 2 tablet Oral BID PRN Karlie Rosenthal MD sodium chloride (PF) 0.9% PF flush 3 mL 3 mL Intracatheter q1 min prn Albania Jackson PA-C sodium chloride (PF) 0.9% PF flush 3 mL 3 mL Intracatheter q1 min prn Karlie Rosenthal MD zolpidem (AMBIEN) tablet 5 mg 5 mg Oral At Bedtime PRN Karlie Rosenthal MD Data Recent Labs Lab 01/18/24 0734 01/17/24201501/17/24 1607 01/17/24 1124 01/17/24 0832 01/16/24 2215 01/16/24 0845 WBC -- -- -- -- 11.4* -- 12.0* HGB 7.7* -- -- -- 8.9* -- 9.2* MCV -- -- -- -- 82 -- 84 PLT -- -- -- -- 121* -- 97* NA 139 -- -- -- 135 -- 132* POTASSIUM 4.3 -- -- -- 4.5 -- 4.1 CHLORIDE 106 -- -- -- 103 -- 99 CO2 18* -- -- -- 18* -- 19* BUN 53.1* -- -- -- 49.3* -- 48.1* CR 3.13* -- -- -- 3.77* -- 4.49* ANIONGAP 15 -- -- -- 14 -- 14 TOM 8.1* -- -- -- 8.3* -- 8.0* GLC 116* 123* 97 < > 138* < > 119* ALBUMIN -- -- -- -- -- -- 2.5* PROTTOTAL -- -- -- -- -- -- 6.4 BILITOTAL -- -- -- -- -- -- 1.4* ALKPHOS -- -- -- -- -- -- 122 ALT -- -- -- -- -- -- 16 AST -- -- -- -- -- -- 19 < > = values in this interval not displayed. Recent Results (from the past 24 hour(s)) XR Knee Port Right 1/2 Views Narrative EXAM: XR KNEE PORT RIGHT 1/2 VIEWS LOCATION: [facility] DATE: 01/17/2024 INDICATION: Post Op Total Knee COMPARISON: None. Impression IMPRESSION: Postoperative changes of a revision right total knee arthroplasty with antibiotic spacer placement. No evidence of immediate hardware complication. Expected soft tissue edema and scattered foci of gas. Surgical drain in place. * Anai Cabrera OTR - 01/18/2024 1:51 PM CDT 01/18/24 1100 Appointment Info Signing Clinician's Name / Credentials (OT) MATTIE [facility] Comments (OT) WBAT on RLE Living Environment People in Home spouse Current Living Arrangements house Home Accessibility stairs to enter home Number of Stairs, Main Entrance 2 Stair Railings, Main Entrance railings on both sides of stairs Transportation Anticipated family or friend will provide Living Environment Comments Pt lives in a house with his spouse. Stairs to enter. Pt reports his spouse will pick him up upon discharge. Pt's spouse works full-time and can not provide 24/7 assist. Pt reports he would be at home alone for significant portions of the day. Self-Care Usual Activity Tolerance good Current Activity Tolerance moderate Regular Exercise No Equipment Currently Used at Home walker, rolling;crutches;cane, straight;grab bar, tub/shower;grab bar, toilet;raised toilet seat (suction cup grab bars) Fall history within last six months yes Number of times patient has fallen within last six months 2 Activity/Exercise/Self-Care Comment Pt reports being IND at baseline with all ADLs. Pt ambulates w/o an AD at baseline but has a FWW if needed. Pt drives. Instrumental Activities of Daily Living (IADL) Previous Responsibilities housekeeping;meal prep;driving;shopping;yardwork;medication management;finances IADL Comments typically ind with IADLs General Information Onset of Illness/Injury or Date of Surgery 01/15/24 Referring Physician Albania Jackson PA-C Patient/Family Therapy Goal Statement (OT) hoping to have pt discharge to TCU, works Additional Occupational Profile Info/Pertinent History of Current Problem Osvaldo Zuniga is a 68 year old male who was admitted on 01/15/2024. Urology following for difficult crandall placement requiring cystoscopy (Dr. Woods on 01/15) for traumatic/malplaced crandall resulting in bilateral hydronephrosis and false passage Existing Precautions/Restrictions fall;weight bearing Right Lower Extremity (Weight-bearing Status) weight-bearing as tolerated (WBAT) Cognitive Status Examination Orientation Status orientation to person, place and time Cognitive Status Comments Slighly off on day Visual Perception Visual Impairment/Limitations corrective lenses full-time Sensory Sensory Quick Adds sensation intact Pain Assessment Patient Currently in Pain Yes, see Vital Sign flowsheet Posture Posture forward head position;protracted shoulders;kyphosis Range of Motion Comprehensive Comment, General Range of Motion R LE ROM impaired secondary to surgery. B UEs WFL. Strength Comprehensive (MMT) Comment, General Manual Muscle Testing (MMT) Assessment Generalized weakness/deconditioning Coordination Upper Extremity Coordination No deficits were identified Bed Mobility Comment (Bed Mobility) Mod A x 2 Transfers Transfer Comments STS mod-max A x 2 Balance Balance Comments Good sitting balance EOB Activities of Daily Living BADL Assessment/Intervention bathing;upper body dressing;lower body dressing;grooming;toileting Bathing Assessment/Intervention Position (Bathing) supported sitting [place] Level (Bathing) moderate assist (50% patient effort);maximum assist (25% patient effort) Comment, (Bathing) A x 2 for transfer - Per clinical judgment Assistive Devices (Bathing) shower chair Upper Body Dressing Assessment/Training Comment, (Upper Body Dressing) Per clinical judgment [place] Level (Upper Body Dressing) set up;minimum assist (75% patient effort) Lower Body Dressing Assessment/Training Comment, (Lower Body Dressing) Per clinical judgment [place] Level (Lower Body Dressing) set up;maximum assist (25% patient effort) Grooming Assessment/Training Position (Grooming) unsupported sitting [place] Level (Grooming) set up Comment, (Grooming) Per clinical judgment Toileting Comment, (Toileting) A x 2 BSC - per clinical judgment [place] Level (Toileting) moderate assist (50% patient effort) Clinical Impression Criteria for Skilled Therapeutic Interventions Met (OT) Yes, treatment indicated OT Diagnosis Decreased I/ADL ind OT Problem List-Impairments impacting ADL problems related to;activity tolerance impaired;balance;mobility;range of motion (ROM);sensation;strength;pain Assessment of Occupational Performance 5 or more Performance Deficits Identified Performance Deficits bathing, toileting, g/h, dressing, household IADLs, func amb Planned Therapy Interventions (OT) ADL retraining;IADL retraining;strengthening;transfer training;progressive activity/exercise;risk factor education Clinical Decision Making Complexity (OT) detailed assessment/moderate complexity Risk & Benefits of therapy have been explained evaluation/treatment results reviewed;care plan/treatment goals reviewed;risks/benefits reviewed;current/potential barriers reviewed;participants voiced agreement with care plan;participants included;patient;spouse/significant other;daughter Clinical Impression Comments Pt presents with decline in ind. Limited by pain, decreased activity tolerance, weakness, and poor balance. Would benefit from skilled IP OT to progress safety and ind with I/ADLs and to rec safe discharge OT Total Evaluation Time OT Lelo, Low Complexity Minutes (66914) 10 OT Goals Therapy Frequency (OT) Daily OT Predicted Duration/Target Date for Goal Attainment 02/01/24 OT Goals Hygiene/Grooming;Lower Body Dressing;Lower Body Bathing;Transfers;Toilet Transfer/Toileting OT: Hygiene/Grooming modified independent OT: Lower Body Dressing Modified independent;including set-up/clothing retrieval;using adaptive equipment OT: Lower Body Bathing Modified independent;using adaptive equipment OT: Transfer Modified independent (tub/shower transfer) OT: Toilet Transfer/Toileting Modified independent;cleaning and garment management Interventions Interventions Quick Adds Self-Care/Home Management Self-Care/Home Management Self-Care/Home Mgmt/ADL, Compensatory, Meal Prep Minutes (31975) 23 Symptoms Noted During/After Treatment (Meal Preparation/Planning Training) increased pain;shortnessof breath;increase work of breath;fatigue Treatment Detail/Skilled Intervention Pt greeted for OT initially, requesting time to nap. At return, pt receptive to participating. legal aide to provide A x 2 for increased safety. Bed mobility with mod A x 2, time to mobilize LEs. Unable to volitionally move affected extremity. SOB, cued to restbetween scooting. Use of sheets to assist with scooting, and cues to anchor L LE on floor to assistwith transfer. OT progressed standing tolerance this date to progress activity tolerance necessary for I/ADLs. Pt tolerated 2x STSs. Max time to cue hand placement and pt trying to find good positioning. Mod-max A x 2 for both transfers. Encouragement to stand as long as possible. Stood approx 60 sec on each attempt, then needing to sit. Vitals monitored. O2 stable in low 90s, HR WNL. Encouraged to rest between sets for EC. Pt denied further activity. Returned to bed with cues/edu and mod-max Ax 2. A x 2 for boost. Edu provided on TCU rec and POC. In agreement. All needs met and alarm on forsafety. OT Discharge Planning OT Plan STSs to progress standing for g/h, g/h EOB, LB dressing with AE. OT Discharge Recommendation (DC Rec) Transitional Care Facility OT Rationale for DC Rec Pt significantly below baseline, limited by pain, decreased activity tolerance, and weakness. Currently requiring A x 2. TCU rec prior to return home. OT Brief overview of current status mod-max A x 2 Total Session Time Timed Code Treatment Minutes 23 Total Session Time (sum of timed and untimed services) 33 * Mason Lawson, PT - 01/18/2024 12:39 PM CDT 01/18/24 0900 Appointment Info Signing Clinician's Name / Credentials (PT) Mason Lawson DPT Rehab Comments (PT) WBAT on RLE Living Environment People in Home spouse Current Living Arrangements house Home Accessibility stairs to enter home Number of Stairs, Main Entrance 2 Stair Railings, Main Entrance railings on both sides of stairs Transportation Anticipated family or friend will provide Living Environment Comments Pt lives in a house with his spouse. Stairs to enter. Pt reports his spouse will pick him up upon discharge. Pt's spouse works full-time and can not provide 24/ assist. Pt reports he would be at home alone for significant portions of the day. Self-Care Usual Activity Tolerance good Current Activity Tolerance moderate Regular Exercise No Equipment Currently Used at Home none Fall history within last six months yes Number of times patient has fallen within last six months 2 Activity/Exercise/Self-Care Comment Pt reports being IND at baseline with all ADLs. Pt ambulates w/o an AD at baseline but has a FWW if needed. Pt drives. General Information Onset of Illness/Injury or Date of Surgery 01/18/24 Referring Physician Albania Jackson PA-C Patient/Family Therapy Goals Statement (PT) To get better Pertinent History of Current Problem (include personal factors and/or comorbidities that impact thePOC) Per Chart: s/p RIGHT REVISION TOTAL KNEE ARTHROPLASTY WITH PLACEMENT OF ANTIBIOTIC SPACER POD#1 Existing Precautions/Restrictions fall Weight-Bearing Status - LLE full weight-bearing Weight-Bearing Status - RLE weight-bearing as tolerated Cognition Orientation Status (Cognition) oriented x 4 Pain Assessment Patient Currently in Pain Yes, see Vital Sign flowsheet (03/27 in RLE) Integumentary/Edema Integumentary/Edema Comments RLW wrapped in Silvestre wrap. Pt appears to have 1+ BLE edema in dorsum of feet and LEs bilaterally Posture Posture Forward head position;Protracted shoulders Range of Motion (ROM) Range of Motion ROM deficits secondary to surgical procedure;ROM deficits secondary to pain;ROM deficits secondary to weakness;ROM deficits secondary to swelling ROM Comment RLE Knee Flex/Ext: 62/3 degrees Strength (Manual Muscle Testing) Strength (Manual Muscle Testing) Deficits observed during functional mobility Strength Comments LLE Hip Flexion: 3/5; RLE Hip Flexion: 2+/5 Bed Mobility Comment, (Bed Mobility) Supine>sit w/ max A x 1 Transfers Comment, (Transfers) Sit>stand w/ FWW and mod A x 1 Gait/Stairs (Locomotion) Comment, (Gait/Stairs) Unable to initiate Balance Balance Comments Adequate static sitting balance; pt unsteady with OOB activity Sensory Examination Sensory Perception patient reports no sensory changes Clinical Impression Criteria for Skilled Therapeutic Intervention Yes, treatment indicated PT Diagnosis (PT) Impaired gait Influenced by the following impairments Decreased activity tolerance; decreased balance; decreased strength Functional limitations due to impairments Impaired functional mobility Clinical Presentation (PT Evaluation Complexity) stable Clinical Presentation Rationale Clinical judgement Clinical Decision Making (Complexity) low complexity Planned Therapy Interventions (PT) balance training;bed mobility training;gait training;patient/family education;stair training;strengthening;transfer training;progressive activity/exercise Risk & Benefits of therapy have been explained evaluation/treatment results reviewed;care plan/treatment goals reviewed;risks/benefits reviewed;current/potential barriers reviewed;participants voiced agreement with care plan;patient;participants included PT Total Evaluation Time PT Eval, Low Complexity Minutes (10113) 10 Physical Therapy Goals PT Frequency Daily PT Predicted Duration/Target Date for Goal Attainment 01/23/24 PT Goals Gait;Transfers;Bed Mobility;Stairs PT: Bed Mobility Supervision/stand-by assist;Supine to/from sit PT: Transfers Supervision/stand-by assist;Sit to/from stand;Assistive device PT: Gait Supervision/stand-by assist;Assistive device;100 feet PT: Stairs Supervision/stand-by assist;2 stairs;Rail on both sides Interventions Interventions Quick Adds Gait Training;Therapeutic Activity;Therapeutic Procedure Therapeutic Procedure/Exercise Ther. Procedure: strength, endurance, ROM, flexibillity Minutes (06727) 1 Symptoms Noted During/After Treatment none Treatment Detail/Skilled Intervention PT educated pt on HEP post knee surgery. Pt discussed and read over exercises, elected not to complete at this time but will complete throughout the day. Therapeutic Activity Therapeutic Activities: dynamic activities to improve functional performance Minutes (91285) 25 Symptoms Noted During/After Treatment Fatigue;Increased pain Treatment Detail/Skilled Intervention Greeted pt supine in bed, agreed to PT. VSS on RA throughout session. PT educated pt on WBAT status, AD use, walking program, and icing/elevation regimen, pt voiced understanding. Pt performed supine>sit w/ max A x 1, needing assist to safely lift RLE off ofbed and trunk control. Pt unable to volitionally move RLE against gravity at this time. Additional assist required to scoot to EOB. Pt able to sit at EOB unsupported without LOB. Pt performed sit>stand x 2 w/ FWW and mod A x 1, needing assist to stand fully upright. Verbal cues for hand placement. Pt requiring the use of momentum to get to standing. Pt usnteady in standing, standing with wide ALISON and heavy reliance on FWW, cues to narrow ALISON and to stand upright. Pt able to stand ~30 secondsbefore needing to sit, unsafe to attempt ambulation at this time. Pt asked to cease session citing pain levels and fatigue. Pt returned to supine w/ mod A x 1, needing assist to safely lift RLE back into bed and reposition self. Pt ended session supine in bed, with all needs met and call light within reach. PT Discharge Planning PT Plan Bed mobility; repeat sit>stands; gait w/ FWW and WC follow; trial stairs as able PT Discharge Recommendation (DC Rec) Transitional Care Facility PT Rationale for DC Rec Pt is below baseline. Pt currently requiring heavy A x 1 for transfers. Pt presents with deficits in activity tolerance, balance, and strength. Due to these deficits, pt is a high falls risk and currently unable to ambulate. Pt would benefit from continued skilled PT services via TCU to address deficits and improve IND with safety and functional mobility. Pt's spouse works full-time and is unable to provide 24/7 assist. PT Brief overview of current status Recommend nursing use A x 2 for transfers Total Session Time Timed Code Treatment Minutes 26 Total Session Time (sum of timed and untimed services) 36 * Marilyn Cullen PA-C - 01/18/2024 10:[address] [facility] Urology Progress Note Assessment & Plan Osvaldo Zuniga is a 68 year old male who was admitted on 01/15/2024. Urology following for difficult crandall placement requiring cystoscopy (Dr. Woods on 01/15) for traumatic/malplaced crandall resulting inbilateral hydronephrosis and false passage Plan: -cont crandall 2-4wks, further management as outpatient -abx per IM (UCx resulted neg) -plan for repeat CT scan abdomen pelvis prior to discharge home to evaluate for resolution of hydronephrosis and previously noted gas and air within the prostate. If patient is clinically not improving would recommend CT sooner than later to rule out possible prostate abscess Marilyn Cullen PA-C MA UROLOGY [email or web address] Text Page (7:30am to 4:30pm) Interval History No overnight events, feeling quite well this AM Crandall draining blood tinged urine AVSS Creat 3.13 UCx neg Physical Exam Temp: 97.7 ??F (36.5 ??C) Temp src: Oral BP: 110/54 Pulse: 83 Resp: 10 SpO2: 98 % O2 Device: Nasal cannula Oxygen Delivery: 1 LPM Vitals: 01/16/24 0532 Weight: 138.3 kg (305 lb) Vital Signs with Ranges Temp: [97.7 ??F (36.5 ??C)-99.1 ??F (37.3 ??C)] 97.7 ??F (36.5 ??C) Pulse: [80-96] 83 Resp: [10-18] 10 BP: (100-138)/(43-63) 110/54 SpO2: [91 %-98 %] 98 % I/O last 3 completed shifts: In: 2353 [I.V.:2103] Out: 3030 [Urine:2700; Drains:130; Blood:200] Constitutional: Alert. Pleasant. No acute distress. Respiratory: No respiratory distress. Breathing unlabored. GI: Soft, nontender. Male crandall is in place ,blood tinged urine Medications Current Facility-Administered Medications Medication Dose Route Frequency Provider Last Rate Last Admin lactated ringers infusion Intravenous Continuous Albania Jackson PA-C Stopped at 01/18/24 0506 sodium chloride 0.9 % infusion Intravenous Continuous Susan Moody MD Stopped at 01/17/24 2251 Current Facility-Administered Medications Medication Dose Route Frequency Provider Last Rate Last Admin acetaminophen (TYLENOL) tablet 975 mg 975 mg Oral Q8H Albania Jackson PA-C 975 mg at 01/18/24 0627 aspirin (ASA) EC tablet 325 mg 325 mg Oral Daily Albania Jackson PA-C 325 mg at 01/18/24 0905 atorvastatin (LIPITOR) tablet 10 mg 10 mg Oral Daily Karlie Rsoenthal MD 10 mg at 01/18/24 09 ceFAZolin (ANCEF) 2 g in 100 mL D5W intermittent infusion 2 g Intravenous Q12H Urbano Johnson MD 200mL/hr at 01/18/24 0459 2 g at 01/18/24 045 DULoxetine (CYMBALTA) DR capsule 120 mg 120 mg Oral Daily Karlie Rosenthal MD 120 mg at 01/18/24 09 famotidine (PEPCID) tablet 20 mg 20 mg Oral At Bedtime Albania Jackson PA-C 20 mg at 01/17/24 225 Or famotidine (PEPCID) injection 20 mg 20 mg Intravenous At Bedtime Albania Jackson PA-C lidocaine (XYLOCAINE) 2 % external gel Urethral Once Barby Urbano PA-C mirtazapine (REMERON) tablet 15 mg 15 mg Oral At Bedtime Karlie Rosenthal MD 15 mg at 01/17/242251 polyethylene glycol (MIRALAX) Packet 17 g 17 g Oral Daily Albania Jackson PA-C 17 g at 01/18/24 09 pregabalin (LYRICA) capsule 75 mg 75 mg Oral BID Karlie Rosenthal MD 75 mg at 01/18/24 09 senna-docusate (SENOKOT-S/PERICOLACE) 8.6-50 MG per tablet 1 tablet 1 tablet Oral BID Karlie Rosenthal MD 1 tablet at 01/18/24 09 Or senna-docusate (SENOKOT-S/PERICOLACE) 8.6-50 MG per tablet 2 tablet 2 tablet Oral BID Karlie Rosenthal MD sodium chloride (PF) 0.9% PF flush 3 mL 3 mL Intracatheter Q8H Albania Jackson PA-C 3 mL at 01/18/24 0459 sodium chloride (PF) 0.9% PF flush 3 mL 3 mL Intracatheter Q8H Karlie Rosenthal MD 3 mL at 01/18/24 0628 tamsulosin (FLOMAX) capsule 0.8 mg 0.8 mg Oral Daily Karlie Rosenthal MD 0.8 mg at 01/18/24 0904 Data Results for orders placed or performed during the hospital encounter of 01/15/24 (from the past 24 hour(s)) Glucose by meter Result Value Ref Range GLUCOSE BY METER POCT 123 (H) 70 - 99 mg/dL Glucose by meter Result Value Ref Range GLUCOSE BY METER POCT 97 70 - 99 mg/dL XR Knee Port Right 1/2 Views Narrative EXAM: XR KNEE PORT RIGHT 1/2 VIEWS LOCATION: [facility] DATE: 01/17/2024 INDICATION: Post Op Total Knee COMPARISON: None. Impression IMPRESSION: Postoperative changes of a revision right total knee arthroplasty with antibiotic spacer placement. No evidence of immediate hardware complication. Expected soft tissue edema and scattered foci of gas. Surgical drain in place. Glucose by meter Result Value Ref Range GLUCOSE BY METER POCT 123 (H) 70 - 99 mg/dL CRP inflammation Result Value Ref Range CRP Inflammation 274.19 (H) <5.00 mg/L Basic metabolic panel Result Value Ref Range Sodium 139 135 - 145 mmol/L Potassium 4.3 3.4 - 5.3 mmol/L Chloride 106 98 - 107 mmol/L Carbon Dioxide (CO2) 18 (L) 22 - 29 mmol/L Anion Gap 15 7 - 15 mmol/L Urea Nitrogen 53.1 (H) 8.0 - 23.0 mg/dL Creatinine 3.13 (H) 0.67 - 1.17 mg/dL GFR Estimate 21 (L) >60 mL/min/1.73m2 Calcium 8.1 (L) 8.8 - 10.2 mg/dL Glucose 116 (H) 70 - 99 mg/dL Hemoglobin Result Value Ref Range Hemoglobin 7.7 (L) 13.3 - 17.7 g/dL * Mervin Banegas PA-C - 01/18/2024 10:[address] [facility] Infectious Disease Progress Note Date of Service (when I saw the patient): 01/18/2024 Assessment & Plan Osvaldo Zuniga is a 68 year old who was admitted on 01/15/2024. Impression: 68 yo male with a history of obesity, DM, HTN, depression/anxiety, prostate cancer, brain aneurysm,and hyperlipidemia who had a right knee replacement in 08/2020. This was complicated by infection with MSSA and he underwent revision, debridement with poly exchange and antibiotic bead treatment in 11/2020 followed by 6 weeks IV Ancef and Rifampin and then 3 months of Cefadroxil. 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 -Cultures from knee aspirate at outside hospital with MSSA, resistant only to Clindamycin. -CRP is 302. Mild leukocytosis. -S/p revision of right TKA with placement of antibiotic spacer 01/17/24.Operative cultures are pending. -OMAR with traumatic/misplaced crandall and noted bilateral hydronephrosis on renal ultrasound. Has hx of prostate cancer. -Recently diagnosed brain aneurysm, which was supposed to be clipped 01/14 but this has been delayeddue to current hospitalization. -Has lymphedema and chronic venous stasis. -He has multiple superficial wounds due to picking at skin. Recommendations: Continue Ancef. Following operative and blood cultures. If blood cultures remain negative tomorrow, PICC can be placed. He will need 6 weeks of IV antibiotics. Advised that he try not to pick at skin and wounds as these can then contribute to infection. Patient and plan discussed with Dr. Johnson. Mervin Banegas PA-C Interval History Tolerating antibiotics ok No new rashes or issues with antibiotics Knee pain is significantly improved after surgery. Labs reviewed No changes to past medical, social or family history Physical Exam Temp: 97.7 ??F (36.5 ??C) Temp src: Oral BP: 110/54 Pulse: 83 Resp: 10 SpO2: 98 % O2 Device: Nasal cannula Oxygen Delivery: 1 LPM Vitals: 01/16/24 0532 Weight: 138.3 kg (305 lb) Vital Signs with Ranges Temp: [97.7 ??F (36.5 ??C)-99.1 ??F (37.3 ??C)] 97.7 ??F (36.5 ??C) Pulse: [80-96] 83 Resp: [10-18] 10 BP: (100-138)/(43-63) 110/54 SpO2: [91 %-98 %] 98 % Constitutional: Awake, alert, cooperative, no apparent distress Lungs: Clear to auscultation bilaterally, no crackles or wheezing Cardiovascular: Regular rate and rhythm, normal S1 and S2, and no murmur noted Abdomen: Normal bowel sounds, soft, non-distended, non-tender Skin: No rashes, no cyanosis, no edema. Right knee in dressing with hemovac. He has multiple scabs on his skin from picking at it. Other: Medications Current Facility-Administered Medications Medication Dose Route Frequency Provider Last Rate Last Admin lactated ringers infusion Intravenous Continuous Albania Jackson PA-C Stopped at 01/18/24 0506 sodium chloride 0.9 % infusion Intravenous Continuous Susan Moody MD Stopped at 01/17/24 2251 Current Facility-Administered Medications Medication Dose Route Frequency Provider Last Rate Last Admin acetaminophen (TYLENOL) tablet 975 mg 975 mg Oral Q8H Albania Jackson PA-C 975 mg at 01/18/24 0627 aspirin (ASA) EC tablet 325 mg 325 mg Oral Daily Albania Jackson PA-C 325 mg at 01/18/24 0905 atorvastatin (LIPITOR) tablet 10 mg 10 mg Oral Daily Karlie Rosenthal MD 10 mg at 01/18/24 0904 ceFAZolin (ANCEF) 2 g in 100 mL D5W intermittent infusion 2 g Intravenous Q12H Urbano Johnson MD 200mL/hr at 01/18/24 0459 2 g at 01/18/24 0459 DULoxetine (CYMBALTA) DR capsule 120 mg 120 mg Oral Daily Karlie Rosenthal MD 120 mg at 01/18/24 0903 famotidine (PEPCID) tablet 20 mg 20 mg Oral At Bedtime Albania Jackson PA-C 20 mg at 01/17/24 225 Or famotidine (PEPCID) injection 20 mg 20 mg Intravenous At Bedtime [place]ia Jackson PA-C lidocaine (XYLOCAINE) 2 % external gel Urethral Once Barby Urbano PA-C mirtazapine (REMERON) tablet 15 mg 15 mg Oral At Bedtime Karlie Rosenthal MD 15 mg at 01/17/24 225 polyethylene glycol (MIRALAX) Packet 17 g 17 g Oral Daily [place]ia Jcakson PA-C 17 g at 01/18/24 09 pregabalin (LYRICA) capsule 75 mg 75 mg Oral BID Karlie Rosenthal MD 75 mg at 01/18/24 0905 senna-docusate (SENOKOT-S/PERICOLACE) 8.6-50 MG per tablet 1 tablet 1 tablet Oral BID Karlie Rosenthal MD 1 tablet at 01/18/24 0904 Or senna-docusate (SENOKOT-S/PERICOLACE) 8.6-50 MG per tablet 2 tablet 2 tablet Oral BID Karlie Rosenthal MD sodium chloride (PF) 0.9% PF flush 3 mL 3 mL Intracatheter Q8H Albania Jackson PA-C 3 mL at 01/18/24 0459 sodium chloride (PF) 0.9% PF flush 3 mL 3 mL Intracatheter Q8H Karlie Rosenthal MD 3 mL at 01/18/24 0628 tamsulosin (FLOMAX) capsule 0.8 mg 0.8 mg Oral Daily Karlie Rosenthal MD 0.8 mg at 01/18/24 0904 Data All microbiology laboratory data reviewed. Recent Labs Lab Test 01/18/24 0734 01/17/24 0832 01/16/24 0845 07/27/21 1359 WBC -- 11.4* 12.0* 5.4 HGB 7.7* 8.9* 9.2* 15.1 HCT -- 27.0* 27.9* 44.7 MCV -- 82 84 97 PLT -- 121* 97* 128* Recent Labs Lab Test 01/18/24 0734 01/17/24 0832 01/16/24 0845 CR 3.13* 3.77* 4.49* Recent Labs Lab Test 01/16/24 0845 SED 79* CRP Inflammation Date Value Ref Range Status 01/18/2024 274.19 (H) <5.00 mg/L Final Blood cultures 01/15: no growth to date MRSA nares negative Operative cultures pending. Aspiration cultures at outside hospital from right knee with MSSA resistant only to Clindamycin. * Candida Roland PA-C - 01/18/2024 10:00 AM CDT Orthopedic Surgery Osvaldo Zuniga 01/18/2024 Admit Date: 01/15/2024 POD: 1 Day Post-Op Procedure(s): RIGHT REVISION TOTAL KNEE ARTHROPLASTY WITH PLACEMENT OF ANTIBIOTIC SPACER Patient resting comfortably in bed. Family at bedside. Pain controlled. Tolerating oral intake. Denies nausea or vomiting Denies chest pain or shortness of breath. Remains on nasal cannula from post operative period. No acute events overnight Temp: [97.7 ??F (36.5 ??C)-99.1 ??F (37.3 ??C)] 97.7 ??F (36.5 ??C) Pulse: [80-96] 83 Resp: [10-18] 10 BP: (100-138)/(43-60) 110/54 SpO2: [91 %-98 %] 98 % Alert and oriented Dressing is clean, dry, and intact. Minimal erythema of the surrounding skin. Bilateral calves are soft, non-tender. Right lower extremity is NVI. Sensation intact bilateral lower extremities Patient able to resist dorsi and plantar flexion bilaterally 2+Dp pulse Labs: Recent Labs Lab Test 01/18/24 0734 01/17/24 0832 01/16/24 0845 07/27/21 1359 WBC -- 11.4* 12.0* 5.4 HGB 7.7* 8.9* 9.2* 15.1 PLT -- 121* 97* 128* No lab results found. Recent Labs Lab Test 01/18/24 0734 01/17/24 0832 01/16/24 0845 CRPI 274.19* 330.61* 302.98* 1. PLAN: Monitor hemoglobin closely. Continue TOE FORMER STITCHDOWNS Plavix + ASA 325 mg for DVT prophylaxis. Mobilize with PT/OT WBAT operative extremity. Continue current pain regimen Dressings: Keep intact. Change if >60% saturated or peeling off. Follow-up: 2 weeks post-op with Dr. Francois 2. Disposition Anticipate d/c to TCU when medically cleared and progressing in PT. Candida Roland PA-C * Tiffany Leal RN - 01/17/2024 8:17 PM CDT BG 123. * Alexia Hernandez RN - 01/17/2024 3:52 PM CDT Called Pre Op for report. PIV SL. Crandall Intact and patent with bloody urine. CHG bath done in Nightand AM shift per out-going RN. * Alexia Hernandez RN - 01/17/2024 3:51 PM CDT MD Notification Notified Person: MD Notified Person Name: Susan Moody Notification Date/Time:01/17/24 @1551 Notification Interaction:Zaelab Message Purpose of Notification:Pt have an order for BG check q2. The order was addressed last night to be changed to Q6h by on-call provider per RN note. Previous order is still there, and the new order notplaced. Please, can you address it. Thanks. Orders Received: Comments: * Wendi Eldridge CRNI - 01/17/2024 12:11 PM CDT [facility] Received request for benefit check should pt require home IV abx. Pt only has Medicare, which does not cover IV ABX in the home. (Pt would have coverage for short term TCU or IC). Below is what pt would be responsible for if pt wanted to go w [facility] home infusion: Drug would go to Part-D (pt would be responsible for the co-pay per dispense) Pt would have to self-pay for the per-nicole (daily) If not homebound, nursing would also be self-pay (per visit) Cost for Cefazolin 2g Q12H is $36.20 per day for drug and supplies. For nursing, patient should have coverage if homebound, however I is not contracted with Medicareand an outside nursing agency would be utilized instead. If patient is not homebound, there is no coverage and [facility] can see patient if patient agrees to self-pay for $90 per visit. Met with pt and his daughter at bedside to introduce home infusion and review benefits. Pt and his daughter state they think he will discharge to TCU but the decision has not been made yet. [facility] willcontinue to follow and if pt discharges to home, I will coordinate IV teaching with pt/family. Pt'scare coordinator, Emma updated. Thank you Wendi Eldridge RN [facility] [phone] (Mon thru Fri 8am - 5pm) [phone] Office * Emma Moreno RN - 01/17/2024 11:36 AM CDT Images from the original note were not included. Per [facility] benefit check: * Susan Moody MD - 01/17/2024 11:[address] [facility] Hospitalist Progress Note Date of Service (when I saw the patient): 01/17/2024 Admit date: 01/15/2024 Interval History Full details of events over last 24 hours outlined below. Waiting for surgery. Anxious to eat again. Pain controlled. No concerns. Discussed recent history and I answered questions about recent events and plan going forward. Assessment & Plan Osvaldo Zuniga is a 68 year old male with past medical history significant for obesity, type 2 diabetes mellitus, essential hypertension, depression, anxiety, prostate cancer, incidental finding of brain aneurysm on Plavix and hyper[facility]. Patient was later diagnosed with septic arthritis and is transferred to [facility] for orthopedic surgery evaluation and possible surgical intervention. Patient was started on IV vancomycin and had traumatic Crandall catheter insertion for urinary retention, patient has also developed OMAR in the past 24 hours before transfer. Assessment & Plan Staph aureus right knee septic arthritis: Patient has undergone right knee replacement in August 2020. Patient [facility] to [facility] for infected prosthetic knee joint. On 12/16 he went to the OR for open knee arthrectomy which was well-tolerated. Blood cultures grew a Staph aureus although repeat blood cultures were negative. PICC line was placed on 12/17/20 and patient was discharged with cefazolin/rifampinfor 6 weeks with ID follow-up. Patient has now developed right knee discomfort again in the past few months, was recently evaluated by [facility] orthopedics on Sunday 01/07. According to patient he has been seen by for orthopedic providers in the past few months as he has developed significant discomfort. On 01/12 he woke up with the right knee swollen painful and from and difficulty walking and presented to outside facility where right knee showed a small effusion. WBC count was 9.1 with absolute neutrophil count of 7.8, elevated CRP of 17.8, patient underwent joint aspiration in ED which started to grow Staph aureus with nucleated cells of 118, 000 71% neutrophil counts. Patient was a started onvancomycin and ceftriaxone. Patient is now transferred to [facility] for further surgical intervention. Of note patient initial creatinine was 1.0 on admission after antibiotics were started his creatinine has jumped to 2.21 this morning. Ultrasound of bilateral kidneys showed distended bladder and hydronephrosis Crandall catheter has been placed although patient has poor urine output, CBC Orthopedic consult appreciated, plan for hardware exchange with temporary antibiotic spacer on 01/17/24 at 3 PM, NPO, on IVF Activity as tolerated with fall precautions although patient activity is limited due to pain. Hold TOE FORMER STITCHDOWNS alendronate Hold TOE FORMER STITCHDOWNS Plavix due to possible procedure tomorrow. Oxycodone for pain control Continue TOE FORMER STITCHDOWNS Lyrica 75 mg p.o. twice daily ID consulted > Linezolid changed to ancef based on [place] knee aspirate cultures growing MSSA, resistant only to clinda. Cx here remain negative. Hold TOE FORMER STITCHDOWNS clobetasol ointment. Acute kidney injury, resolving Urinary retention with bilateral renal hydronephrosis -- Cr 2.21 (outside hospital) >> 4.49 -- had hematuria secondary to crandall catheter trauma -- Appreciate Urology consult on 01/16/24 Cystoscopy with complex crandall placement over wire performed at bedside with Dr Woods. Finding of large traumatic false passage. 16F [place] tip crandall placed over wire with cystoscopic guidance for return of about 400cc clear yellow/sandrita urine. Patient tolerated procedure well.CONTINUE CURRENT CRANDALL, DO NOT REMOVE.Will need to follow up with urology for TOV in 2-5 weeks. -- continue NS @ 125 ml/h for post-retention diuresis. -- daily BMP -- Holding lisinopril , furosemide and Celebrex Vitals: 01/16/24 0532 Weight: 138.3 kg (305 lb) I/O last 3 completed shifts: In: - Out: 2600 [Urine:2600] Recent Labs Lab 01/17/24 0832 01/16/24 0845 CO2 18* 19* NA 135 132* POTASSIUM 4.5 4.1 BUN 49.3* 48.1* CR 3.77* 4.49* PAD Patient is morbidly obese and has significant PAD, including stasis pigmentary changes, hair loss, numerous healed scabs in his extremities -- recommend vascular medicine consultation after surgery as outpatient -- his wounds will provide ongoing portals of entry for infection in the future. GERD --Continue famotidine 10 mg daily twice daily, TOE FORMER STITCHDOWNS doses as needed History of depression and anxiety: --Continue TOE FORMER STITCHDOWNS duloxetine 120 mg p.o. daily --Continue TOE FORMER STITCHDOWNS mirtazapine 30 mg at bedtime Essential hypertension: -- Holding TOE FORMER STITCHDOWNS lisinopril and furosemide -- As needed hydralazine available Known brain aneurysm: -- Stable on TOE FORMER STITCHDOWNS Plavix, holding for surgery, -- Resume postoperatively. -- patient was to have endovascular repair of this cerebral aneurysm next week. Other chronic medical conditions Hyperlipidemia Obstructive sleep apnea History of prostate cancer Thrombocytopenia Neurodermatitis Clinically Significant Risk Factors # Hypoalbuminemia: Lowest albumin = 2.5 g/dL at 01/16/2024 8:45 AM, will monitor as appropriate # Thrombocytopenia: Lowest platelets = 97 in last 2 days, will monitor for bleeding # Severe Obesity: Estimated body mass index is 41.37 kg/m?? as calculated from the following: Height as of this encounter: 1.829 m (6'). Weight as of this encounter: 138.3 kg (305 lb)., PRESENT ON ADMISSION # Financial/Environmental Concerns: none Diet: Orders Placed This Encounter NPO per Anesthesia Guidelines for Procedure/Surgery Except for: Meds, Ice Chips IVF: NS @ 125 ml/h DVT Prophylaxis: PCDs, per surgery. Crandall Catheter: PRESENT, indication: Acute retention or obstruction, Acute retention or obstruction Full Code Disposition: Anticipate discharge TBD PT/OT Post-op Communication: Discussed with , daughter and patient on 01/17/24 Susan Moody MD Hospitalist Service [facility] Securely message with the [employer] Console (learn more here) Text page via Shah[employer] P[employer], Broker Paging/Directory -Data reviewed today: I reviewed all new labs and imaging results over the last 24 hours. I personally reviewed no images or EKG's today. Physical Exam Temp: 97.7 ??F (36.5 ??C) Temp src: Oral BP: 132/61 Pulse: 85 Resp: 18 SpO2: 93 % O2 Device: None (Room air) Vitals: 01/16/24 0532 Weight: 138.3 kg (305 lb) Vital Signs with Ranges Temp: [97.4 ??F (36.3 ??C)-97.9 ??F (36.6 ??C)] 97.7 ??F (36.5 ??C) Pulse: [85-88] 85 Resp: [18-20] 18 BP: (111-135)/(50-61) 132/61 SpO2: [91 %-93 %] 93 % I/O last 3 completed shifts: In: - Out: 2600 [Urine:2600] Today's Exam Constitutional: NAD, Neuropsyche: alert and oriented, answers questions appropriately. Respiratory: Breathing comfortably, good air exchange, no wheezes, no crackles. Cardiovascular: Regular rate and rhythm, 1-2+ edema. GI: soft, NT/ND, BS normal Skin/Integumen: Not some bruising and chronic wounds. No acute rash, sign of bleeding. Medications All medications reviewed on 01/17/24 Current Facility-Administered Medications Medication Dose Route Frequency Provider Last Rate Last Admin sodium chloride 0.9 % infusion Intravenous Continuous Karlie Rosenthal MD 100 mL/hr at 01/16/24 2217 New Bag at 01/16/24 2217 Current Facility-Administered Medications Medication Dose Route Frequency Provider Last Rate Last Admin atorvastatin (LIPITOR) tablet 10 mg 10 mg Oral Daily Karlie Rosenthal MD 10 mg at 01/17/24 0843 ceFAZolin (ANCEF) 2 g in 100 mL D5W intermittent infusion 2 g Intravenous Q12H Urbano Johnson MD 200mL/hr at 01/17/24 0522 2 g at 01/17/24 0522 DULoxetine (CYMBALTA) DR capsule 120 mg 120 mg Oral Daily Karlie Rosenthal MD 120 mg at 01/17/24 0841 famotidine (PEPCID) tablet 10 mg 10 mg Oral Daily Jason Walker MD 10 mg at 01/17/24 0843 lidocaine (XYLOCAINE) 2 % external gel Urethral Once Barby Urbano PA-C mirtazapine (REMERON) tablet 15 mg 15 mg Oral At Bedtime Karlie Rosenthal MD 15 mg at 01/16/24 2144 pregabalin (LYRICA) capsule 75 mg 75 mg Oral BID Karlie Rosenthal MD 75 mg at 01/17/24 0841 senna-docusate (SENOKOT-S/PERICOLACE) 8.6-50 MG per tablet 1 tablet 1 tablet Oral BID Karlie Rosenthal MD 1 tablet at 01/17/24 0842 Or senna-docusate (SENOKOT-S/PERICOLACE) 8.6-50 MG per tablet 2 tablet 2 tablet Oral BID Karlie Rosenthal MD sodium chloride (PF) 0.9% PF flush 3 mL 3 mL Intracatheter Q8H Karlie Rosenthal MD tamsulosin (FLOMAX) capsule 0.8 mg 0.8 mg Oral Daily Karlie Rosenthal MD 0.8 mg at 01/17/24 0842 PRN Meds: Current Facility-Administered Medications Medication Dose Route Frequency Provider Last Rate Last Admin acetaminophen (TYLENOL) tablet 650 mg 650 mg Oral Q4H PRN Karlie Rosenthal MD Or acetaminophen (TYLENOL) Suppository 650 mg 650 mg Rectal Q4H PRN Karlie Rosenthal MD calcium carbonate (TUMS) chewable tablet 1,000 mg 1,000 mg Oral 4x Daily PRN Karlie Rosenthal MD hydrALAZINE (APRESOLINE) tablet 10 mg 10 mg Oral Q4H PRN Karlie Rosenthal MD Or hydrALAZINE (APRESOLINE) injection 10 mg 10 mg Intravenous Q4H PRN Karlie Rosenthal MD lidocaine (LMX4) cream Topical Q1H PRN Karlie Rosenthal MD lidocaine (XYLOCAINE) 2 % external gel Urethral Q4H PRN Barby Urbano PA-C lidocaine (XYLOCAINE) 2 % external gel Urethral Once PRN Christine Ugalde MD lidocaine 1 % 0.1-1 mL 0.1-1 mL Other Q1H PRN Karlie Rosenthal MD melatonin tablet 1 mg 1 mg Oral At Bedtime PRN Karlie Rosenthal MD naloxone (NARCAN) injection 0.2 mg 0.2 mg Intravenous Q2 Min PRN Hoiness, Marilyn, RPH Or naloxone (NARCAN) injection 0.4 mg 0.4 mg Intravenous Q2 Min PRN Hoiness, Marilyn, RPH Or naloxone (NARCAN) injection 0.2 mg 0.2 mg Intramuscular Q2 Min PRN Hoiness, Marilyn, RPH Or naloxone (NARCAN) injection 0.4 mg 0.4 mg Intramuscular Q2 Min PRN Hoiness, Marilyn, RPH oxyCODONE (ROXICODONE) tablet 10 mg 10 mg Oral Q4H PRN Karlie Rosenthal MD 10 mg at 01/17/24 0842 oxyCODONE (ROXICODONE) tablet 5 mg 5 mg Oral Q4H PRN Karlie Rosenthal MD senna-docjosuéte (SENOKOT-S/PERICOLACE) 8.6-50 MG per tablet 1 tablet 1 tablet Oral BID PRN Karlie Rosenthal MD Or senna-docusate (SENOKOT-S/PERICOLACE) 8.6-50 MG per tablet 2 tablet 2 tablet Oral BID PRN Karlie Rosenthal MD sodium chloride (PF) 0.9% PF flush 3 mL 3 mL Intracatheter q1 min prn Karlie Rosenthal MD zolpidem (AMBIEN) tablet 5 mg 5 mg Oral At Bedtime PRN Karlie Rosenthal MD Data Recent Labs Lab 01/17/24 0832 01/17/24 0547 01/16/24 2215 01/16/24 0845 WBC 11.4* -- -- 12.0* HGB 8.9* -- -- 9.2* MCV 82 -- -- 84 PLT 121* -- -- 97* NA 135 -- -- 132* POTASSIUM 4.5 -- -- 4.1 CHLORIDE 103 -- -- 99 CO2 18* -- -- 19* BUN 49.3* -- -- 48.1* CR 3.77* -- -- 4.49* ANIONGAP 14 -- -- 14 TOM 8.3* -- -- 8.0* GLC 138* 145* 125* 119* ALBUMIN -- -- -- 2.5* PROTTOTAL -- -- -- 6.4 BILITOTAL -- -- -- 1.4* ALKPHOS -- -- -- 122 ALT -- -- -- 16 AST -- -- -- 19 No results found for this or any previous visit (from the past 24 hour(s)). * Eryn Walker PA-C - 01/17/2024 10:[address] [facility] Urology Progress Note Date of Service: 01/17/2024 Interval History Doing okay. Tolerating crandall. Outputs sandrita. Going to OR today with ortho. AVSS. Creatinine: 4.49-3.77 Crandall output: 1450/2600 Assessment & Plan 68 yo M with traumatic / malplaced crandall, bilateral hydronephrosis, probable UTI. Difficult Crandall placement over wire afternoon of 01/16/2024. Patient was noted to have very large traumatic false passage. At this time recommend continuation of Crandall catheter for at least 2 to 4 weeks prior to attemptinga trial of void. Follow urine culture results, currently on Ancef. Plan for repeat CT scan abdomen pelvis prior to discharge home to evaluate for resolution of hydronephrosis and previously noted gas and air within the prostate. If patient is clinically not improving would recommend CT sooner than later to rule out possible prostate abscess. Physical Exam Temp: [97.4 ??F (36.3 ??C)-97.9 ??F (36.6 ??C)] 97.7 ??F (36.5 ??C) Pulse: [85-88] 85 Resp: [18-20] 18 BP: (111-135)/(50-61) 132/61 SpO2: [91 %-93 %] 93 % Weights: Vitals: 01/16/24531 Weight: 138.3 kg (305 lb) Body mass index is 41.37 kg/m??. Constitutional: Alert. Pleasant. No acute distress. Respiratory: No respiratory distress. Breathing unlabored. GI: Soft, nontender. Male crandall is in place ,sandrita urine Data Recent Labs Lab 01/17/24 0832 01/17/24 0547 01/16/24221401/16/24 0845 WBC 11.4* -- -- 12.0* HGB 8.9* -- -- 9.2* MCV 82 -- -- 84 PLT 121* -- -- 97* NA 135 -- -- 132* POTASSIUM 4.5 -- -- 4.1 CHLORIDE 103 -- -- 99 CO2 18* -- -- 19* BUN 49.3* -- -- 48.1* CR 3.77* -- -- 4.49* ANIONGAP 14 -- -- 14 TOM 8.3* -- -- 8.0* GLC 138* 145* 125* 119* ALBUMIN -- -- -- 2.5* PROTTOTAL -- -- -- 6.4 BILITOTAL -- -- -- 1.4* ALKPHOS -- -- -- 122 ALT -- -- -- 16 AST -- -- -- 19 Recent Labs Lab 01/17/24 0832 01/17/24 0547 01/16/24221401/16/24 0845 GLC 138* 145* 125* 119* Unresulted Labs Ordered in the Past 30 Days of this Admission Date and Time Order Name Status Description 01/16/2024 4:56 PM Urine Culture In process 01/16/2024 12:47 PM Blood Culture Hand, Left Preliminary 01/16/2024 12:47 PM Blood Culture Hand, Left Preliminary Imaging Recent Results (from the past 24 hour(s)) CT Abdomen Pelvis w/o Contrast Narrative CT ABDOMEN AND PELVIS WITHOUT CONTRAST 01/16/2024 11:25 AM CLINICAL HISTORY: Hydronephrosis. TECHNIQUE: CT scan of the abdomen and pelvis was performed without IV contrast. Multiplanar reformats were obtained. Dose reduction techniques were used. CONTRAST: None. COMPARISON: None. FINDINGS: LOWER CHEST: Small bilateral pleural effusions. HEPATOBILIARY: Normal. PANCREAS: Normal. SPLEEN: Splenomegaly. ADRENAL GLANDS: Normal. KIDNEYS/BLADDER: Moderate bilateral hydronephrosis. No obstructing stones. There is gas in the bladder. Mild diffuse bladder wall thickening. BOWEL: Normal. LYMPH NODES: Normal. VASCULATURE: Mild to moderate atherosclerotic calcification. PELVIC ORGANS: There is gas and fluid in the posterior and right side of the prostate gland. OTHER: None. MUSCULOSKELETAL: Normal. Impression IMPRESSION: 1. Moderate bilateral hydroureteronephrosis. No obstructing stones. 2. Gas and fluid in the prostate gland. Noted history of traumatic catheter placement. This may be secondary to this, or a prostatic abscess. 3. Small amount of gas in the bladder should be related to previous catheterization. JASMIN ESPINOSA MD Eryn Walker PA-C on 01/17/2024 at 10:21 AM [facility] * Wendi Eldridge CRNI - 01/16/2024 4:43 PM CDT [facility] Received request for benefit check should pt require home IV abx. Pt only has Medicare, which does not cover IV ABX in the home. (Pt would have coverage for short term TCU or IC). Below is what pt would be responsible for if pt wanted to go w home infusion: Drug would go to Part-D (pt would be responsible for the co-pay per dispense) Pt would have to self-pay for the per-nicole (daily) If not homebound, nursing would also be self-pay (per visit) Cost for Cefazolin 2g Q12H is $36.20 per day for drug and supplies. For nursing, patient should have coverage if homebound, however [facility] is not contracted with Medicareand an outside nursing agency would be utilized instead. If patient is not homebound, there is no coverage and [facility] can see patient if patient agrees to self-pay for $90 per visit. Thank you Wendi Eldridge RN [facility] Liaison [phone] (Mon thru Fri 8am - 5pm) [phone] Office * Barby Urbano PA-C - 01/16/2024 3:38 PM CDT UROLOGY PROGRESS UPDATE NOTE See note from earlier today for full consultation. CT today does reveal persistent moderate bilateral hydronephrosis, no stones. Gas present in bladder and prostate consistent with recent catheter trauma. Patient has been able to void small volumes today, but elevated BUS of 499 ml this afternoon. I discussed the above with patient and advised catheter placement. After sterile prep and urethral instillation of Urojet lidocaine lubricant, I first attempted placement of a 16F coude catheter which did return about 15cc bloody urine (which was collected to send for UA), but irrigations confirmed catheter not in bladder -- suspected coiling in prostate. I then attempted placement of 20F catheter but again met tight resistance at the prostate. Patient did spontaneously void approximately 400cc sandrita urine during these catheter attempts. Assessment / Plan 68 yo M with traumatic crandall placement, urinary retention with bilateral hydronephrosis, OMAR, h/o radiation for prostate cancer ([place]). Suspect stricture related to prior radiation vs. false passage -- difficult crandall placement. - Unable to place catheter at this time - Patient requesting a break due to penile pain. As he has been able to void some and emptied ~400cc, will recheck bladder scan. D/w YARED Spangler. - Discussed with Dr Quinones who recommends repeat catheter attempt with smaller catheter due to suspicion of stricture with radiation history. If unable to place, may need cystoscopic guidance.Called for mobile cysto cart to bedside. ADDENDUM 17:00: Cystoscopy with complex crandall placement over wire performed at bedside with Dr Woods. Finding of large traumatic false passage. 16F [place] tip crandall placed over wire with cystoscopic guidance for return of about 400cc clear yellow/sandrita urine. Patient tolerated procedure well. CONTINUE CURRENT CRANDALL, DO NOT REMOVE. Will need to follow up with urology for TOV in 2-5 weeks. CHIP Flores ([facility]) Urology Office: [phone] Associated attestation - Donnie Woods MD - 01/20/2024 1:19 PM CDT Physician Attestation I have reviewed and discussed with the advanced practice provider their history, physical and plan for Osvaldo Zuniga. I did not participate in a shared visit; this is an advanced practice provider only visit. Donnie Woods MD Date of Service (when I saw the patient): I did not personally see this patient today. * Jason Walker MD - 01/16/2024 10:[address] [facility] Hospitalist Progress Note Jason Walker MD 01/16/2024 Assessment & Plan Osvaldo Zuniga is a 68 year old male with past medical history significant for obesity, type 2 diabetes mellitus, essential hypertension, depression, anxiety, prostate cancer, incidental finding of brain aneurysm on Plavix and hyperlipidemia who was admitted to [facility] to the concern for right knee pain. Patient was later diagnosed with septic arthritis and is transferred to [facility] for orthopedic surgery evaluation and possible surgical intervention. Patient was started on IV vancomycin and had traumatic Crandall catheter insertion for urinary retention, patient has also developed OMAR in the past 24 hours before transfer. Assessment & Plan Staph aureus right knee septic arthritis: Patient has undergone right knee replacement in August 2020. Patient was [facility] to [facility] to 01/06 for infected prosthetic knee joint. On 12/16 he went to the OR for open knee arthrectomy which was well-tolerated. Blood cultures grew a Staph aureus although repeat blood cultures were negative. PICC line was placed on 12/17/20 and patient was discharged with cefazolin/rifampinfor 6 weeks with ID follow-up. Patient has now developed right knee discomfort again in the past few months, was recently evaluated by [facility] orthopedics on Sunday 01/07. According to patient he has been seen by for orthopedic providers in the past few months as he has developed significant discomfort. On 01/12 he woke up with the right knee swollen painful and from and difficulty walking and presented to outside facility where right knee showed a small effusion. WBC count was 9.1 with absolute neutrophil count of 7.8, elevated CRP of 17.8, patient underwent joint aspiration in ED which started to grow Staph aureus with nucleated cells of 118, 000 71% neutrophil counts. Patient was a started onvancomycin and ceftriaxone. Patient is now transferred to [facility] for further surgical intervention. Of note patient initial creatinine was 1.0 on admission after antibiotics were started his creatinine has jumped to 2.21 this morning. Ultrasound of bilateral kidneys showed distended bladder and hydronephrosis Crandall catheter has been placed although patient has poor urine output, CBC -- orthopedic consult appreciated, discussed with PA, plan for hardware exchange with temporary antibiotic spacer on 01/17/24 at 3 PM, NPO after midnight --Activity as tolerated with fall precautions although patient activity is limited due to pain. --Start patient on IV fluids. --Hold TOE FORMER STITCHDOWNS alendronate --Hold TOE FORMER STITCHDOWNS Plavix due to possible procedure tomorrow. --Will order oxycodone for pain control --Continue TOE FORMER STITCHDOWNS Lyrica 75 mg p.o. twice daily --Considering patient OMAR, will not start IV vancomycin, start patient on IV linezolid 600 mg twicedaily. Will check MRSA swabs --Will continue SSRIs on admission but if linezolid discontinued will recommend holding both SSRIs as it increases her risk of serotonin syndrome --Will consult infectious disease --Twelve-lead EKG is normal --Patient is denying any history of coronary artery disease, CHF, chronic kidney disease or diabetes mellitus, patient has tolerated anesthesia well in the past. --Hold TOE FORMER STITCHDOWNS clobetasol ointment Acute kidney injury Urinary retention with bilateral renal hydronephrosis -- Cr 2.21 (outside hospital) >> 4.49 -- urology consult noted -- had hematuria secondary to crandall catheter trauma -- noted plans to replace crandall catheter -- continue IVF, I/O and daily BMP -- As above, will hold lisinopril , furosemide and Celebrex PAD Patient is morbidly obese and has significant PAD, including stasis pigmentary changes, hair loss, numerous healed scabs in his extremities -- recommend vascular medicine consultation after surgery as outpatient -- his wounds will provide ongoing portals of entry for infection in the future. GERD --Continue famotidine 10 mg daily twice daily, TOE FORMER STITCHDOWNS doses as needed History of depression and anxiety: --Continue TOE FORMER STITCHDOWNS duloxetine 120 mg p.o. daily --Continue TOE FORMER STITCHDOWNS mirtazapine 30 mg at bedtime -- As above, starting patient on linezolid if patient is stays on it for more than 24 to 48 hours will consider holding SSRIs to decrease risk of serotonin syndrome, will await antibiotic recommendation from ID Essential hypertension: -- Hold TOE FORMER STITCHDOWNS lisinopril and furosemide -- As needed hydralazine available Incidental finding of brain aneurysm: -- Stable on TOE FORMER STITCHDOWNS Plavix, holding for possible surgical intervention tomorrow, can be started postoperatively. -- patient was to have endovascular repair of this cerebral aneurysm next week. Other chronic medical conditions Hyperlipidemia Obstructive sleep apnea History of prostate cancer Thrombocytopenia Neurodermatitis Clinically Significant Risk Factors Present on Admission # Drug Induced Platelet Defect: home medication list includes an antiplatelet medication # Hypertension: Home medication list includes antihypertensive(s) Diet: Regular Diet Adult, NPO after midnight Crandall Catheter: Not present DVT Prophylaxis: Pneumatic Compression Devices Code Status: Full Code Disposition: home vs TCU, > 5 days The patient's care was discussed with the Patient. Medical Decision Making Interval History -- chart reviewed -- discussed with ortho PA -- hematuria resolving -- noted worsening of Cr -Data reviewed today: I reviewed all new labs and imaging over the last 24 hours. I personally reviewed the EKG tracing showing NSR,normal QT . Physical Exam , Blood pressure 126/55, pulse 94, temperature 98.1 ??F (36.7 ??C), temperature source Oral, resp. rate 18, height 1.829 m (6'), weight 138.3 kg (305 lb), SpO2 91%. Vitals: 01/16/24 0532 Weight: 138.3 kg (305 lb) Vital Signs with Ranges Temp: [98.1 ??F (36.7 ??C)-99.5 ??F (37.5 ??C)] 98.1 ??F (36.7 ??C) Pulse: [94-95] 94 Resp: [17-18] 18 BP: (106-126)/(52-68) 126/55 SpO2: [91 %-98 %] 91 % I/O's Last 24 hours I/O last 3 completed shifts: In: - Out: 100 [Urine:100] Constitutional: Awake, alert, cooperative, no apparent distress Respiratory: Clear to auscultation bilaterally, no crackles or wheezing Cardiovascular: Regular rate and rhythm, normal S1 and S2, and no murmur noted GI: Normal bowel sounds, soft, obese Skin/Integumen: No rashes, no cyanosis, non pitting edema, right knee warm, pain with ROM Other: Medications All medications were reviewed. Current Facility-Administered Medications Medication Dose Route Frequency Provider Last Rate Last Admin sodium chloride 0.9 % infusion Intravenous Continuous Karlie Rosenthal MD 100 mL/hr at 01/16/24 0822 Rate Verify at 01/16/24 08 Current Facility-Administered Medications Medication Dose Route Frequency Provider Last Rate Last Admin atorvastatin (LIPITOR) tablet 10 mg 10 mg Oral Daily Karlie Rosenthal MD 10 mg at 01/16/24 0819 DULoxetine (CYMBALTA) DR capsule 120 mg 120 mg Oral Daily Karlie Rosenthal MD 120 mg at 01/16/24 0820 famotidine (PEPCID) tablet 10 mg 10 mg Oral BID Karlie Rosenthal MD 10 mg at 01/16/24 0818 linezolid (ZYVOX) infusion 600 mg 600 mg Intravenous Q12H Karlie Rosenthal MD 300 mL/hr at 01/15/24 2354 600 mg at 01/15/24 2354 mirtazapine (REMERON) tablet 15 mg 15 mg Oral At Bedtime Karlie Rosenthal MD 15 mg at 01/15/24 2352 pregabalin (LYRICA) capsule 75 mg 75 mg Oral BID Karlie Rosenthal MD 75 mg at 01/16/24 0821 senna-docusate (SENOKOT-S/PERICOLACE) 8.6-50 MG per tablet 1 tablet 1 tablet Oral BID Karlie Rosenthal MD 1 tablet at 01/16/24 0818 Or senna-docusate (SENOKOT-S/PERICOLACE) 8.6-50 MG per tablet 2 tablet 2 tablet Oral BID Karlie Rosenthal MD sodium chloride (PF) 0.9% PF flush 3 mL 3 mL Intracatheter Q8H Karlie Rosenthal MD tamsulosin (FLOMAX) capsule 0.8 mg 0.8 mg Oral Daily Karlie Rosenthal MD 0.8 mg at 01/16/24 0819 Data Recent Labs Lab 01/16/24 0845 WBC 12.0* HGB 9.2* MCV 84 PLT 97* NA 132* POTASSIUM 4.1 CHLORIDE 99 CO2 19* BUN 48.1* CR 4.49* ANIONGAP 14 TOM 8.0* GLC 119* ALBUMIN 2.5* PROTTOTAL 6.4 BILITOTAL 1.4* ALKPHOS 122 ALT 16 AST 19 Recent Results (from the past 24 hour(s)) (IA) US RENAL BILATERAL Narrative For Patients: As a result of the Cures Act, medical imaging exams and procedure reports are released immediately into your electronic medical record. You may view this report before yourreferring provider. If you have questions, please contact your health care provider. INDICATION: Renal failure TECHNIQUE: Ultrasound renal bilateral. Larid-scale and color Doppler sonographic images were acquired of the kidneys and urinary bladder. COMPARISON: None FINDINGS: Right kidney: 12.4 x 6.5 x 6.6 cm. Normal echotexture and cortex. Moderate hydronephrosis. Left kidney: 12.6 x 6.9 x 6.9 cm. Normal echotexture and cortex. Moderate hydronephrosis. Bladder: Bladder is distended. No wall thickening or bladder mass. Ureteral jets were not visualized. Impression 1. Suboptimal exam due to the patient`s large body habitus and inability to roll into an optimal imaging position 2. Kidneys are normal in size and echogenicity with moderately prominent hydronephrosis and moderate distention of the bladder. Dictated by Cassidy Dotson MD @ 01/15/2024 12:30:05 PM (Electronically Signed) Jason Walker MD Text Page (7am to 6pm) * Fay Rain RN - 01/16/2024 4:52 AM CDT Patient is A&Ox4, VSS on RA. Reported pain upon movement. Not Oob yet during the shift, needs 3people to turn the patient. No BM, attempted to use the bedpan once. Patient able to pass urine in the incontinent pad. Bladder scan was done d/t urinary retention. Noted scattered scratches and scabon the skin. Has edema on BLE. CMS intact. NPO at MA. For ortho, ID & urology consult. documented in this encounter H&P Notes * Karlie Rosenthal MD - 01/15/2024 9:[address] [facility] History and Physical : Hospitalist Service: Date of Admission: 01/15/2024 Cumulative Summary: Osvaldo Zuniga is a 68 year old male with past medical history significant for obesity, type 2 diabetes mellitus, essential hypertension, depression, anxiety, prostate cancer, incidental finding of brain aneurysm on Plavix and hyperlipidemia who was admitted to [facility] to the concern for right knee pain. Patient was later diagnosed with septic arthritis and is transferred to [facility] for orthopedic surgery evaluation and possible surgical intervention. Patient was started on IV vancomycin and had traumatic Crandall catheter insertion for urinary retention, patient has also developed OMAR in the past 24 hours before transfer. Assessment & Plan Staph aureus right knee septic arthritis: Patient has undergone right knee replacement in August 2020. Patient was admitted to [facility] 12[facility] to 01/06 for infected prosthetic knee joint. On 12/16 he went to the OR for open knee arthrectomy which was well-tolerated. Blood cultures grew a Staph aureus although repeat blood cultures were negative. PICC line was placed on 12/17/20 and patient was discharged with cefazolin/rifampinfor 6 weeks with ID follow-up. Patient has now developed right knee discomfort again in the past few months, was recently evaluated by [facility] orthopedics on Sunday 01/07. According to patient he has been seen by for orthopedic providers in the past few months as he has developed significant discomfort. On 01/12 he woke up with the right knee swollen painful and from and difficulty walking and presented to outside facility where right knee showed a small effusion. WBC count was 9.1 with absolute neutrophil count of 7.8, elevated CRP of 17.8, patient underwent joint aspiration in ED which started to grow Staph aureus with nucleated cells of 118, 000 71% neutrophil counts. Patient was a started onvancomycin and ceftriaxone. Patient is now transferred to [facility] for further surgical intervention. Of note patient initial creatinine was 1.0 on admission after antibiotics were started his creatinine has jumped to 2.21 this morning. Ultrasound of bilateral kidneys showed distended bladder and hydronephrosis Crandall catheter has been placed although patient has poor urine output, CBC --Admit patient to inpatient's status. --Restart patient on regular diet, n.p.o. after midnight for possible surgical intervention. --Activity as tolerated with fall precautions although patient activity is limited due to pain. --Start patient on IV fluids. --Hold TOE FORMER STITCHDOWNS alendronate --Hold TOE FORMER STITCHDOWNS Plavix due to possible procedure tomorrow. --Hold TOE FORMER STITCHDOWNS Celebrex. --Hold TOE FORMER STITCHDOWNS furosemide 40 mg p.o. daily --Hold hydroxyzine for itching --Hold TOE FORMER STITCHDOWNS lisinopril 20 mg p.o. daily --Hold TOE FORMER STITCHDOWNS Multivitamin --Will order oxycodone for pain control --Continue TOE FORMER STITCHDOWNS Lyrica 75 mg p.o. twice daily --Orthopedic surgery consultation has been requested --Considering patient OMAR, will not start IV vancomycin, start patient on IV linezolid 600 mg twicedaily --Will continue SSRIs on admission but if linezolid is continued will recommend holding both SSRIs as it increases her risk of serotonin syndrome --Will consult infectious disease --Twelve-lead EKG ordered --Patient is denying any history of coronary artery disease, CHF, chronic kidney disease or diabetes mellitus, patient has tolerated anesthesia well in the past. --Hold TOE FORMER STITCHDOWNS clobetasol ointment Acute kidney injury Urinary retention with bilateral renal hydronephrosis --Continue Crandall care, patient has low urine output since placement of Crandall --Discussed with bedside nursing regarding bladder irrigation --Will consult urology --Start patient on TOE FORMER STITCHDOWNS Flomax --Recheck BMP tomorrow morning --As above, will hold lisinopril , furosemide and Celebrex --Holding vancomycin for now GERD --Continue famotidine 10 mg daily twice daily, TOE FORMER STITCHDOWNS doses as needed History of depression and anxiety: --Continue TOE FORMER STITCHDOWNS duloxetine 120 mg p.o. daily --Continue TOE FORMER STITCHDOWNS mirtazapine 30 mg at bedtime -- As above, starting patient on linezolid if patient is stays on it for more than 24 to 48 hours will consider holding SSRIs to decrease risk of serotonin syndrome Essential hypertension: -- Hold TOE FORMER STITCHDOWNS lisinopril and furosemide -- As needed hydralazine available Incidental finding of brain aneurysm: -- Stable on TOE FORMER STITCHDOWNS Plavix, holding for possible surgical intervention tomorrow, can be started postoperatively. Other chronic medical conditions Hyperlipidemia Obstructive sleep apnea History of prostate cancer Thrombocytopenia Neurodermatitis Clinically Significant Risk Factors Present on Admission # Drug Induced Platelet Defect: home medication list includes an antiplatelet medication # Hypertension: Home medication list includes antihypertensive(s) Diet: Regular Diet Adult Crandall Catheter: Not present DVT Prophylaxis: Pneumatic Compression Devices Code Status: Full Code Disposition: Pending patient to stay more than 2 nights The patient's care was discussed with the Patient. Medical Decision Making 80 MINUTES SPENT BY ME on the date of service doing chart review, history, exam, documentation & further activities per the note. Karlie Rosenthal MD, FACP Primary Care Physician Physician No Ref-Primary Chief Complaint Septic arthritis of right knee. History is obtained from the patient Patient Active Problem List Diagnosis Septic joint (H) History of Present Illness Osvaldo Zuniga is a 68 year old male with past medical history significant for obesity, type 2 diabetes mellitus, essential hypertension, depression, anxiety, prostate cancer, incidental finding of brain aneurysm on Plavix and hyperlipidemia who [facility] pain. Patient has undergone right knee replacement in August 2020. Patient was admitted to [facility] 12[facility] to 01/06 for infected prosthetic knee joint. He was found to have cellulitis and elevated troponin. On 12/16 he went to the OR for open knee arthrectomy which was well-tolerated. Blood cultures grew a Staph aureus although repeat blood cultures were negative. PICC line was placed on 12/17 and patient was discharged with cefazolin/rifampin for 6 weeks with ID follow-up. Patient was thenevaluated by [facility] orthopedics on 01/08/2024 for chronic pain. On 01/12 he woke up with his right knee swollen, painful, warm and had difficulty walking on it. Patient denied any trauma. On evaluation in the outside facilities, right knee x-ray showed a small effusion, WBC were 9.1 with absolute neutrophil count of 7.8, CRP of 17.8 his joint was aspirated in the ED which is started to grow Staph aureus and nucleated cells of 118,000 and 71% neutrophils. Patient was started on vancom ycin and ceftriaxone. inbound call center representative orthopedic surgeon was consulted who recommended medical management with outpatient procedure. His pain was managed by oxycodone and IV Dilaudid orthopedic surgery recommended transfer for consideration of surgery and patient is transferred to [facility] His initial creatinine was 1.0 on admission. After antibiotics his creatinine up from 1.0-2.21 withno urine output. Ultrasound of bilateral kidneys showed distended bladder and hydronephrosis in both kidneys. Maintenance IV fluid was started and Crandall catheter was placed, UA has been ordered. Labs reviewed from this morning from 01/14 from outside facility Showing sodium of 133, potassium of 3.5, creatinine of 2.21, magnesium of 1.7, WBC count of 9.7 andhemoglobin of 9.3. Patient ESR was 83 and CRP was 17.8 Of note, patient also had finding of brain aneurysm incidentally found on head MRI for balancing issues in September 2023. He was started on Plavix in order to decrease the risk of his stroke. He was supposed to have his aneurysm clipped on 01/14 but was unable to make appointment due to this currenthospitalization. Patient is admitted for further evaluation and management as a direct admission for orthopedic surgery evaluation and possible surgical intervention. Review of Systems CONSTITUTIONAL: positive for fatigue and generalized weakness. EYES: negative for blurred vision and visual disturbance HEENT: negative for hoarseness and voice change RESPIRATORY: negative for cough with sputum, dyspnea, wheezing and chest pain CARDIOVASCULAR: negative for chest pain, palpitations, orthopnea, exertional chest pressure/discomfort GASTROINTESTINAL: Negative for abd pain, nausea , vomiting ,constipation and abdominal pain GENITOURINARY: Negative for burning /urgency and frequency. HEMATOLOGIC/LYMPHATIC: negative ALLERGIC/IMMUNOLOGIC: negative for drug reactions ENDOCRINE: negative for diabetic symptoms including polyuria, polydipsia and weight loss MUSCULOSKELETAL: Positive for knee discomfort for the past few months, per patient he has been evaluated by multiple Ortho providers in the last weeks. NEUROLOGICAL: negative BEHAVIOR/PSYCH: negative Past Medical History I have reviewed this patient's medical history and updated it with pertinent information if needed. Past medical history significant for obesity, type 2 diabetes mellitus, essential hypertension, depression, anxiety, prostate cancer, incidental finding of brain aneurysm on Plavix and hyperlipidemia Obstructive sleep apnea Incarcerated ventral hernia Prostate cancer Thrombocytopenia Neurodermatitis Past Surgical History Surgical history significant for right knee replacement in August 2020 Open knee arthrotomy in 12/16/2020. Prior to Admission Medications Prior to Admission Medications Prescriptions Last Dose Informant Patient Reported? Taking? DULoxetine (CYMBALTA) 60 MG capsule 01/14/2024 at am Yes Yes Sig: Take 120 mg by mouth daily Vitamin D3 (VITAMIN D, CHOLECALCIFEROL,) 25 mcg (1000 units) tablet 01/14/2024 at am Yes Yes Sig: Take 25 mcg by mouth daily alendronate (FOSAMAX) 70 MG tablet 01/14/2024 at am Yes Yes Sig: Take 70 mg by mouth every 7 days atorvastatin (LIPITOR) 10 MG tablet 01/14/2024 at am Yes Yes Sig: Take 10 mg by mouth daily calcitonin, salmon, (MIACALCIN) 200 UNIT/ACT nasal spray 01/14/2024 at am Yes Yes Sig: Maury 1 spray into one nostril alternating nostrils daily Alternate nostril each day. celecoxib (CELEBREX) 200 MG capsule 01/14/2024 at am Yes Yes Sig: Take 200 mg by mouth 2 times daily as needed for moderate pain clobetasol (TEMOVATE) 0.05 % external ointment 01/14/2024 at am Yes Yes Sig: Apply topically 2 times daily clopidogrel (PLAVIX) 75 MG tablet 01/14/2024 at am (restarted 01/05/24) Yes Yes Sig: Take 75 mg by mouth daily famotidine (PEPCID) 10 MG tablet Yes Yes Sig: Take 10 mg by mouth 2 times daily as needed (stomach upset while on clopidogrel) ferrous sulfate (FE TABS) 325 (65 Fe) MG EC tablet 01/14/2024 at am Yes Yes Sig: Take 325 mg by mouth daily furosemide (LASIX) 40 MG tablet 01/14/2024 at am Yes Yes Sig: Take 40 mg by mouth daily hydrOXYzine HCl (ATARAX) 25 MG tablet 01/14/2024 at am Yes Yes Sig: Take 50 mg by mouth every 6 hours as needed for itching lisinopril (ZESTRIL) 20 MG tablet 01/14/2024 at am Yes Yes Sig: Take 20 mg by mouth daily mirtazapine (REMERON) 30 MG tablet 01/13/2024 at hs Yes Yes Sig: Take 15 mg by mouth at bedtime multivitamin, therapeutic (THERA-VIT) TABS tablet 01/14/2024 at am Yes Yes Sig: Take 1 tablet by mouth daily oxyCODONE IR (ROXICODONE) 10 MG tablet 01/14/2024 at am Yes Yes Sig: Take 10 mg by mouth 3 times daily pregabalin (LYRICA) 75 MG capsule 01/14/2024 at am Yes Yes Sig: Take 75 mg by mouth 2 times daily tamsulosin (FLOMAX) 0.4 MG capsule 01/14/2024 at am Yes Yes Sig: Take 0.8 mg by mouth daily tiZANidine (ZANAFLEX) 4 MG tablet 01/13/2024 at pm Yes Yes Sig: Take 4 mg by mouth every 6 hours as needed for muscle spasms vitamin E (TOCOPHEROL) 1000 units (450 mg) CAPS capsule 01/14/2024 at am Yes Yes Sig: Take 1,000 Units by mouth daily zolpidem (AMBIEN) 10 MG tablet 01/13/2024 at hs Yes Yes Sig: Take 10 mg by mouth nightly as needed for sleep Facility-Administered Medications: None Allergies Allergies Allergen Reactions Metformin Nausea Social History Patient currently lives at home with his . 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 Patient is a recovering alcoholic Family History History of essential hypertension in father Physical Exam Temp: 99.5 ??F (37.5 ??C) Temp src: Oral BP: 116/56 Pulse: 95 Resp: 17 SpO2: 95 % O2 Device: None (Room air) Vital Signs with Ranges Temp: [99.5 ??F (37.5 ??C)] 99.5 ??F (37.5 ??C) Pulse: [95] 95 Resp: [17] 17 BP: (116)/(56) 116/56 SpO2: [95 %] 95 % 0 lbs 0 oz Constitutional: Awake, alert,oriented to time, place and person , cooperative, no apparent distress.Pleasent and cooperative Eyes: Conjunctiva and pupils examined and normal. HEENT: Moist mucous membranes, normal dentition. Respiratory: Clear to auscultation bilaterally, no crackles or wheezing. Cardiovascular: Regular rate and rhythm, normal S1 and S2, and no murmur noted. GI: Soft, non-distended, non-tender, normal bowel sounds. Lymph/Hematologic: No anterior cervical or supraclavicular adenopathy. Skin: No rashes, no cyanosis, no edema. Musculoskeletal: Right knee tenderness and swelling, decreased range of motion Neurologic: Cranial nerves 2-12 intact, normal strength and sensation. Psychiatric: Alert, oriented to person, place and time, no obvious anxiety or depression. Data Data reviewed today: I personally reviewed x-ray of the right knee done in outside facility which is showing no acute displaced fracture, small knee joint effusion. . No lab results found in last 7 days. Imaging: Recent Results (from the past 24 hour(s)) (IA) US RENAL BILATERAL Narrative For Patients: As a result of the Cures Act, medical imaging exams and procedure reports are released immediately into your electronic medical record. You may view this report before yourreferring provider. If you have questions, please contact your health care provider. INDICATION: Renal failure TECHNIQUE: Ultrasound renal bilateral. Laird-scale and color Doppler sonographic images were acquired of the kidneys and urinary bladder. COMPARISON: None FINDINGS: Right kidney: 12.4 x 6.5 x 6.6 cm. Normal echotexture and cortex. Moderate hydronephrosis. Left kidney: 12.6 x 6.9 x 6.9 cm. Normal echotexture and cortex. Moderate hydronephrosis. Bladder: Bladder is distended. No wall thickening or bladder mass. Ureteral jets were not visualized. Impression 1. Suboptimal exam due to the patient`s large body habitus and inability to roll into an optimal imaging position 2. Kidneys are normal in size and echogenicity with moderately prominent hydronephrosis and moderate distention of the bladder. Dictated by Cassidy Dotson MD @ 01/15/2024 12:30:05 PM (Electronically Signed) documented in this encounter Procedure Notes * Esther Mccabe RN - 01/19/2024 2:15 PM CDTAssociated Order(s): Single Lumen PICC Placement [facility] Single Lumen PICC Placement Date/Time: 01/19/2024 2:11 PM Performed by: Esther Mccabe RN Authorized by: Mervin Banegas PA-C Indications: vascular access UNIVERSAL PROTOCOL Site Marked: Yes Prior Images Obtained and Reviewed: Yes Required items: Required blood products, implants, devices and special equipment available Patient identity confirmed: Verbally with patient, hospital-assigned identification number and arm band NA - No sedation, light sedation, or local anesthesia Confirmation Checklist: Patient's identity using two indicators, procedure was appropriate and matched the consent or emergent situation, correct equipment/implants were available and relevant allergies Time out: Immediately prior to the procedure a time out was called Matthews Protocol: the Joint Commission Matthews Protocol was followed Preparation: Patient was prepped and draped in usual sterile fashion ESBL (mL): 2 ANESTHESIA Local Anesthetic: Lidocaine 1% without epinephrine Anesthetic Total (mL): 1 SEDATION Patient Sedated: No Preparation: skin prepped with ChloraPrep Skin prep [...] placement verified by x-ray PROCEDURE Patient Tolerance: Patient tolerated the procedure well with no immediate complications Picc placed without difficulty/chest x-ray pending placement Disposal: sharps and needle count correct at the end of procedure, needles and guidewire disposed in sharps container documented in this encounter Consult Notes * Emma Moreno RN - 01/18/2024 8:03 AM CDTAssociated Order(s): CARE MANAGEMENT / SOCIAL WORK IP CONSULT Initial consulted completed by Richa Mendez on 01/15. No need for a new consult. If patient already has home care set up, please communicate the name of the agency in your progressnote. Should have homecare set up does not provide enough information. * Richa Mendez RN - 01/16/2024 2:56 PM CDTAssociated Order(s): CARE MANAGEMENT / SOCIAL WORK IP CONSULT Care Management Initial Consult General Information Assessment completed with: Pablito Osvaldo Type of CM/SW Visit: Initial Assessment Primary Care Provider verified and updated as needed: Yes Readmission within the last 30 days: no previous admission in last 30 days Reason for Consult: discharge planning Advance Care Planning: Communication Assessment Patient's communication style: Cognitive Cognitive/Neuro/Behavioral: WDL Level of Consciousness: alert Arousal Level: opens eyes spontaneously Orientation: oriented x 4 Mood/Behavior: calm, cooperative Best Language: 0 - No aphasia Speech: clear, spontaneous, logical Living Environment: People in home: spouse Rosibel Current living Arrangements: house Able to return to prior arrangements: other (see comments) (Pending PT/OT eval) Family/Social Support: Care provided by: self Provides care for: no one Marital Status: Rosibel Description of Support System: Involved, Supportive Current Resources: Patient receiving home care services: No Community Resources: None Equipment currently used at home: none Supplies currently used at home: None Employment/Financial: Employment Status: retired Financial Concerns: none Referral to Financial Worker: No Does the patient's insurance plan have a 3 day qualifying hospital stay waiver? No Lifestyle & Psychosocial Needs: Social Determinants of Health Food Insecurity: No Food Insecurity (01/14/2024) [facility] Food Insecurity Worried About Running Out of Food in the Last Year: 1 Depression: Not at risk (01/01/2024) Received from [email or web address] PHQ-2 PHQ-2 TOTAL SCORE: 2 Housing Stability: Low Risk (01/14/2024) Received from [email or web address] Housing Stability Unable to Pay for Housing in the Last Year: 1 Tobacco Use: Medium Risk (01/14/2024) [facility] Patient History Smoking Tobacco Use: Former Smokeless Tobacco Use: Never Passive Exposure: Not on file Financial Resource Strain: Low Risk (01/14/2024) Received from [email or web address] Financial Resource Strain Difficulty of Paying Living Expenses: 3 Difficulty of Paying Living Expenses: Not on file Alcohol Use: Alcohol Misuse (07/18/2022) Received from [facility] AUDIT-C Frequency of Alcohol Consumption: 4 or more times a week Average Number of Drinks: 1 or 2 Frequency of Binge Drinking: Less than monthly Transportation Needs: No Transportation Needs (01/14/2024) Received from [email or web address] Transportation Needs Lack of Transportation (Medical): 1 Physical Activity: Insufficiently Active (09/21/2023) Received from [facility] Exercise Vital Sign Days of Exercise per Week: 2 days Minutes of Exercise per Session: 20 min Interpersonal Safety: Not At Risk (07/18/2022) Received from [facility] Humiliation, Afraid, Rape, and Kick questionnaire Fear of Current or Ex-Partner: No Emotionally Abused: No Physically Abused: No Sexually Abused: No Stress: Stress Concern Present (07/18/2022) Received from [facility] [place] [facility] [employer] [facility] - Occupational Stress Questionnaire Feeling of Stress : Rather much Social Connections: Socially Integrated (01/14/2024) [facility] Social Connections Frequency of Communication with Friends and Family: 0 Health Literacy: Not on file Functional Status: Prior to admission patient needed assistance: Dependent ADLs:: Independent Dependent IADLs:: Independent Mental Health Status: Chemical Dependency Status: Values/Beliefs: Spiritual, Cultural Beliefs, Gnosticist Practices, Values that affect care: no Additional Information: Per consult for discharge planning, met with patient to discuss discharge planning. Per pt, prior to admit he and his spouse were living in a one level home with 2 steps to enter. Patient reports being independent with his ADLs & IADLs. Patient shared his knee became very painful on Monday and it became difficult for him to ambulate. Discussed that Ortho plans to Right revision total knee arthroplasty with antibiotic spacer placement is recommended and that ID is following for the antibiotic plan. Discussed potential need for IV abx at discharge. Patient shared he has had a PICC line inthe past and did IV abx at home. Discussed sending a referral to [facility] to check his insurance coverage for home IV abx and pt was in agreement with this plan. Discussed PT/OT eval for discharge recommendations and discussed possible need for TCU vs Home care. Patient open to TCU vs home care at discharge. Referral sent to [facility]. Await PT/OT eval. Inpatient It Infrastructure Consultant will continue to follow for discharge planning. YARED Rodriguez RN, BSN, OCN Inpatient Care Coordination Ortho [facility] * Stacy Bland PA-C - 01/16/2024 1:34 PM CDTAssociated Order(s): ORTHOPEDIC SURGERY IP CONSULT [facility] Orthopedic Consultation Osvaldo Zuniga Age: [age] year old Date of : 1955 Date of Admission: 01/15/2024 Reason for consult: Right knee infection Requesting physician: Karlie Rosenthal MD Level of consult: Consult, follow and place orders Assessment and Plan: Assessment: Right septic total knee arthroplasty (MSSA) S/p right TKA (DOS: 09/08/20) with [facility] ? I&D vs revision for MSSA ~3 months postop (~11/2020) Plan: The patient's history and clinical/diagnostic findings were reviewed with the on-call orthopedic trauma surgeon, Dr. Miguel Francois. Patient has a history of s/p right TKA with revision in with Dr. Jose Armando Vega at [facility]. Patient has always had right knee soreness, but pain substantially increased since 01/13/24 without known trauma. Seen at OSH and a right knee arthrocentesis was completed and found to have 118K cells and positive Staph aureus on cultures. Transferred for surgical intervention. Right revision total knee arthroplasty with antibiotic spacer placement is recommended given concerns for chronic/recurrent infection. Plan for this tomorrow with joint specialist, Dr. Caleb Garcia, pending medically clearance. Patient and family understanding and in agreement with plan. will further discuss the risks, benefits, and outcomes of surgery while obtaining consent. -NPO at midnight. -NWB RLE. -Antibiotics per ID. -Continue pain regimen. -Hold any TOE FORMER STITCHDOWNS anticoagulation (TOE FORMER STITCHDOWNS Plavix - held since 01/14/24). -Type and screen ordered. Please contact orthopedic trauma team if any questions or concerns arise. Chief Complaint: Right knee infection History of Present Illness: Medical history obtained via chart review and discussion with the patient and family at bedside. Osvaldo Zuniga is a 68 year old male with past medical history of obesity, type 2 diabetes mellitus, essential hypertension, depression, anxiety, prostate cancer, incidental finding of brain aneurysm on Plavix and hyperlipidemia who was transferred to [facility] on 01/15/24 for a right septic TKA. Patient has ahistory of s/p right TKA with revision for MSSA septic joint in with Dr. Jose Armando Vega [facility]. Patient has always had right knee soreness, but pain substantially increased since 01/13/24 without known trauma. Seen at OSH and a right knee arthrocentesis was completed and found to have 118K cells and positive Staph aureus on cultures. Patient reports continued right knee pain and swelling. Unable to weight bear due to pain. No reports of fever or chills. Afebrile, VSS. Plavix on hold from at least 01/14/24 due to previously planned intervention for aneurysm. Tolerating PO intake. Past Medical History: No past medical history on file. Past Surgical History: No past surgical history on file. Social History: Social History Tobacco Use Smoking status: Not on file Smokeless tobacco: Not on file Substance Use Topics Alcohol use: Not on file Family History: No family history on file. Immunizations: VACCINE/DOSE Diptheria DPT DTAP HBIG Hepatitis A Hepatitis B HIB Influenza Measles Meningococcal MMR Mumps Pneumococcal Polio Rubella Small Pox TDAP Varicella Zoster Allergies: Allergies Allergen Reactions Metformin Nausea Medications: Current Facility-Administered Medications Medication Dose Route Frequency Provider Last Rate Last Admin acetaminophen (TYLENOL) tablet 650 mg 650 mg Oral Q4H PRN Karlie Rosenthal MD Or acetaminophen (TYLENOL) Suppository 650 mg 650 mg Rectal Q4H PRN Karlie Rosenthal MD atorvastatin (LIPITOR) tablet 10 mg 10 mg Oral Daily Karlie Rosenthal MD 10 mg at 01/16/24 0819 calcium carbonate (TUMS) chewable tablet 1,000 mg 1,000 mg Oral 4x Daily PRN Karlie Rosenthal MD ceFAZolin (ANCEF) 2 g in 100 mL D5W intermittent infusion 2 g Intravenous Q12H Urbano Johnson MD DULoxetine (CYMBALTA) DR capsule 120 mg 120 mg Oral Daily Karlie Rosenthal MD 120 mg at 01/16/24 0820 famotidine (PEPCID) tablet 10 mg 10 mg Oral BID Karlie Rosenthal MD 10 mg at 01/16/24 0818 hydrALAZINE (APRESOLINE) tablet 10 mg 10 mg Oral Q4H PRN Karlie Rosenthal MD Or hydrALAZINE (APRESOLINE) injection 10 mg 10 mg Intravenous Q4H PRN Karlie Rosenthal MD lidocaine (LMX4) cream Topical Q1H PRN Karlie Rosenthal MD lidocaine (XYLOCAINE) 2 % external gel Urethral Once Barby Urbano PA-C lidocaine (XYLOCAINE) 2 % external gel Urethral Once PRN Christine Ugalde MD lidocaine 1 % 0.1-1 mL 0.1-1 mL Other Q1H PRN Karlie Rosenthal MD melatonin tablet 1 mg 1 mg Oral At Bedtime PRN Karlie Rosenthal MD mirtazapine (REMERON) tablet 15 mg 15 mg Oral At Bedtime Karlie Rosenthal MD 15 mg at 01/15/24 2352 naloxone (NARCAN) injection 0.2 mg 0.2 mg Intravenous Q2 Min PRN Hoiness, Marilyn, RPH Or naloxone (NARCAN) injection 0.4 mg 0.4 mg Intravenous Q2 Min PRN Hoiness, Marilyn, RPH Or naloxone (NARCAN) injection 0.2 mg 0.2 mg Intramuscular Q2 Min PRN Hoiness, Marilyn, RPH Or naloxone (NARCAN) injection 0.4 mg 0.4 mg Intramuscular Q2 Min PRN Hoiness, Marilyn, RPH oxyCODONE (ROXICODONE) tablet 10 mg 10 mg Oral Q4H PRN Karlie Rosenthal MD 10 mg at 01/16/24 1144 oxyCODONE (ROXICODONE) tablet 5 mg 5 mg Oral Q4H PRN Karlie Rosenthal MD pregabalin (LYRICA) capsule 75 mg 75 mg Oral BID Karlie Rosenthal MD 75 mg at 01/16/24 0821 senna-docusate (SENOKOT-S/PERICOLACE) 8.6-50 MG per tablet 1 tablet 1 tablet Oral BID PRN Karlie Rosenthal MD Or senna-docusate (SENOKOT-S/PERICOLACE) 8.6-50 MG per tablet 2 tablet 2 tablet Oral BID PRN Karlie Rosenthal MD senna-docusate (SENOKOT-S/PERICOLACE) 8.6-50 MG per tablet 1 tablet 1 tablet Oral BID Karlie Rosenthal MD 1 tablet at 01/16/24 0818 Or senna-docusate (SENOKOT-S/PERICOLACE) 8.6-50 MG per tablet 2 tablet 2 tablet Oral BID Karlie Rosenthal MD sodium chloride (PF) 0.9% PF flush 3 mL 3 mL Intracatheter Q8H Karlie Rosenthal MD sodium chloride (PF) 0.9% PF flush 3 mL 3 mL Intracatheter q1 min prn Karlie Rosenthal MD sodium chloride 0.9 % infusion Intravenous Continuous Karlie Rosenthal MD 100 mL/hr at 01/16/24 1319 New Bag at 01/16/24 1319 tamsulosin (FLOMAX) capsule 0.8 mg 0.8 mg Oral Daily Karlie Rosenthal MD 0.8 mg at 01/16/24 0819 zolpidem (AMBIEN) tablet 5 mg 5 mg Oral At Bedtime PRN Karlie Rosenthal MD Review of Systems: CV: NEGATIVE for chest pain, palpitations or peripheral edema C: NEGATIVE for fever, chills, change in weight E/M: NEGATIVE for ear, mouth and throat problems R: NEGATIVE for significant cough or SOB Physical Exam: All vitals have been reviewed Patient Vitals for the past 24 hrs: BP Temp Temp src Pulse Resp SpO2 Height Weight 01/16/24 0800 126/55 98.1 ??F (36.7 ??C) Oral 94 18 91 % -- -- 01/16/24 0532 114/68 98.1 ??F (36.7 ??C) -- 94 -- 98 % 1.829 m (6') 138.3 kg (305 lb) 01/16/24 0000 106/52 98.2 ??F (36.8 ??C) Oral 95 18 95 % -- -- 01/15/243 116/56 99.5 ??F (37.5 ??C) Oral 95 17 95 % -- -- Intake/Output Summary (Last 24 hours) at 01/16/2024 1333 Last data filed at 01/15/2024 2350 Gross per 24 hour Intake -- Output 100 ml Net -100 ml Constitutional: Pleasant, alert, appropriate, following commands. NAD. Non-toxic appearing. HEENT: Head atraumatic normocephalic. Pupils equal round and reactive. Respiratory: Unlabored breathing no audible wheeze Cardiovascular: Regular rate and rhythm per pulses. GI: Abdomen is non-distended. Lymph/Hematologic: No lymphadenopathy in areas examined. Genitourinary: No crandall Skin: No rashes, no cyanosis. Bilateral lower leg edema and hyperpigmentation. Musculoskeletal: Right lower extremity: Well-healed incision to the anterior knee. Wounds diffuselyto the bilateral lower and upper extremities with associated hyperpigmentation and edema. Pitting edema 2+ right foot/ankle. Large effusion to the right knee. Thigh and lower leg compartments are soft and compressible. Diffusely tender to the right knee. Nontender to the thigh and calf. Right knee AROM 15-45 degrees. Able to actively DF and PF the ankles, bilaterally. Able to flex and extend toes. DP pulse 2+. Capillary refill <2 seconds. SILT. Neurologic: GCS 15, A&OX4, normal mood Data: All laboratory data reviewed Results for orders placed or performed during the hospital encounter of 01/15/24 CT Abdomen Pelvis w/o Contrast Status: None (Preliminary result) Narrative CT ABDOMEN AND PELVIS WITHOUT CONTRAST 01/16/2024 11:25 AM CLINICAL HISTORY: Hydronephrosis. TECHNIQUE: CT scan of the abdomen and pelvis was performed without IV contrast. Multiplanar reformats were obtained. Dose reduction techniques were used. CONTRAST: None. COMPARISON: None. FINDINGS: LOWER CHEST: Small bilateral pleural effusions. HEPATOBILIARY: Normal. PANCREAS: Normal. SPLEEN: Splenomegaly. ADRENAL GLANDS: Normal. KIDNEYS/BLADDER: Moderate bilateral hydronephrosis. No obstructing stones. There is gas in the bladder. Mild diffuse bladder wall thickening. BOWEL: Normal. LYMPH NODES: Normal. VASCULATURE: Mild to moderate atherosclerotic calcification. PELVIC ORGANS: There is gas and fluid in the posterior and right side of the prostate gland. OTHER: None. MUSCULOSKELETAL: Normal. Impression IMPRESSION: 1. Moderate bilateral hydroureteronephrosis. No obstructing stones. 2. Gas and fluid in the prostate gland. Noted history of traumatic catheter placement. This may be secondary to this, or a prostatic abscess. 3. Small amount of gas in the bladder should be related to previous catheterization. Comprehensive metabolic panel Status: Abnormal Result Value Ref Range Sodium 132 (L) 135 - 145 mmol/L Potassium 4.1 3.4 - 5.3 mmol/L Carbon Dioxide (CO2) 19 (L) 22 - 29 mmol/L Anion Gap 14 7 - 15 mmol/L Urea Nitrogen 48.1 (H) 8.0 - 23.0 mg/dL Creatinine 4.49 (H) 0.67 - 1.17 mg/dL GFR Estimate 14 (L) >60 mL/min/1.73m2 Calcium 8.0 (L) 8.8 - 10.2 mg/dL Chloride 99 98 - 107 mmol/L Glucose 119 (H) 70 - 99 mg/dL Alkaline Phosphatase 122 40 - 150 U/L AST 19 0 - 45 U/L ALT 16 0 - 70 U/L Protein Total 6.4 6.4 - 8.3 g/dL Albumin 2.5 (L) 3.5 - 5.2 g/dL Bilirubin Total 1.4 (H) <=1.2 mg/dL CBC with platelets Status: Abnormal Result Value Ref Range WBC Count 12.0 (H) 4.0 - 11.0 10e3/uL RBC Count 3.34 (L) 4.40 - 5.90 10e6/uL Hemoglobin 9.2 (L) 13.3 - 17.7 g/dL Hematocrit 27.9 (L) 40.0 - 53.0 % MCV 84 78 - 100 fL MCH 27.5 26.5 - 33.0 pg MCHC 33.0 31.5 - 36.5 g/dL RDW 15.8 (H) 10.0 - 15.0 % Platelet Count 97 (L) 150 - 450 10e3/uL CRP inflammation Status: Abnormal Result Value Ref Range CRP Inflammation 302.98 (H) <5.00 mg/L Erythrocyte sedimentation rate auto Status: Abnormal Result Value Ref Range Erythrocyte Sedimentation Rate 79 (H) 0 - 20 mm/hr EKG 12-lead, tracing only Status: None (Preliminary result) Result Value Ref Range Systolic Blood Pressure mmHg Diastolic Blood Pressure mmHg Ventricular Rate 92 BPM Atrial Rate 92 BPM TN Interval 164 ms QRS Duration 112 ms QT 388 ms QTc 479 ms P [place] 72 degrees R AXIS 51 degrees T [place] 58 degrees Interpretation ECG Sinus rhythm Normal ECG No previous ECGs available Adult Type and Screen Status: None Result Value Ref Range ABO/RH(D) A POS Antibody Screen Negative Negative SPECIMEN EXPIRATION DATE [id number] ABO/Rh type and screen Status: None Narrative The following orders were created for panel order ABO/Rh type and screen. Procedure Abnormality Status --------- ------ Adult Type and Screen[[id number]] Final result Please view results for these tests on the individual orders. Attestation: I have reviewed today's vital signs, notes, medications, labs and imaging with Dr. Miguel Francois. Amount of time performed on this consult: 60 minutes. Stacy Bland PA-C [facility] Orthopedics Associated attestation - Miguel Francois MD - 01/18/2024 7:38 AM CDT Physician Attestation I agree with the information in this note. Miguel Francois MD * Mervin Banegas PA-C - 01/16/2024 11:42 AM CDTAssociated Order(s): INFECTIOUS DISEASES IP CONSULT [facility] Infectious Disease Consultation Date of Admission: 01/15/2024 Date of Consult (When I saw the patient): 01/16/24 Assessment & Plan Osvaldo Zuniga is a 68 year old who was admitted on 01/15/2024. Impression: 68 yo male with a history of obesity, DM, HTN, depression/anxiety, prostate cancer, brain aneurysm,and hyperlipidemia who had a right knee replacement in 08/2020. This was complicated by infection with MSSA and he underwent revision, debridement with poly exchange and antibiotic bead treatment in 11/2020 followed by 6 weeks IV Ancef and Rifampin and then 3 months of Cefadroxil. 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 -Cultures from knee aspirate at outside hospital with MSSA, resistant only to Clindamycin. -CRP is 302. Mild leukocytosis. -OMAR with traumatic/misplaced crandall and noted bilateral hydronephrosis on renal ultrasound. Has hx of prostate cancer. -Recently diagnosed brain aneurysm, which was supposed to be clipped 01/14 but this has been delayeddue to current hospitalization. -Has lymphedema and chronic venous stasis. -He has multiple superficial wounds due to picking at skin. Recommendations: Stop Linezolid as cultures are growing MSSA again and start Ancef. Await explant of TKA tomorrow with placement of antibiotic spacer. Obtain blood cultures. Advised that he try not to pick at skin and wounds as these can then contribute to infection. Patient and plan discussed with Sr. Johnson. Mervin Banegas PA-C Reason for Consult Reason for consult: Asked to evaluate this patient for Septic arthritis, staph aureus infection, unable to be on Vancomycin due to OMAR. Primary Care Physician Physician No Ref-Primary Chief Complaint Septic right TKA. History is obtained from the patient and medical records History of Present Illness Osvaldo Zuniga is a 68 year old male with a history of obesity, DM, HTN, depression/anxiety, prostate cancer, brain aneurysm, and hyperlipidemia who had a right knee replacement in 08/2020. On 3/31/21he developed infection of his right knee and underwent revision, debridement with poly exchange andantibiotic bead treatment. Blood cultures and knee cultures had grown out MSSA and he was ultimately discharged on Ancef and Rifampin for 6 weeks, followed by Cefadroxil for 3 months. He states sincethen his knee has never felt right. He presented again to the ED on 01/14/24 with increasing swelling, pain, and warmth in his right knee. This was aspirated and cultures grew MSSA again, resistant only to Clindamycin. [facility] Past Medical History I have reviewed this patient's medical history and updated it with pertinent information if needed. Obesity type 2 diabetes mellitus essential hypertension depression, anxiety prostate cancer incidental finding of brain aneurysm on Plavix hyperlipidemia Obstructive sleep apnea Incarcerated ventral hernia Prostate cancer Thrombocytopenia Neurodermatitis Past Surgical History I have reviewed this patient's surgical history and updated it with pertinent information if needed. right knee replacement in August 2020 Open knee arthrotomy in 12/16/2020. Prior to Admission Medications Prior to Admission Medications Prescriptions Last Dose Informant Patient Reported? Taking? DULoxetine (CYMBALTA) 60 MG capsule 01/15/2024 at am Yes Yes Sig: Take 120 mg by mouth daily Vitamin D3 (VITAMIN D, CHOLECALCIFEROL,) 25 mcg (1000 units) tablet 01/14/2024 at am Yes Yes Sig: Take 25 mcg by mouth daily alendronate (FOSAMAX) 70 MG tablet 01/14/2024 at am Yes Yes Sig: Take 70 mg by mouth every 7 days atorvastatin (LIPITOR) 10 MG tablet 01/15/2024 at am Yes Yes Sig: Take 10 mg by mouth daily calcitonin, salmon, (MIACALCIN) 200 UNIT/ACT nasal spray 01/14/2024 at am Yes Yes Sig: Maury 1 spray into one nostril alternating nostrils daily Alternate nostril each day. celecoxib (CELEBREX) 200 MG capsule 01/14/2024 at am Yes Yes Sig: Take 200 mg by mouth 2 times daily as needed for moderate pain clobetasol (TEMOVATE) 0.05 % external ointment 01/14/2024 at am Yes Yes Sig: Apply topically 2 times daily clopidogrel (PLAVIX) 75 MG tablet 01/15/2024 at am (restarted 01/05/24) Yes Yes Sig: Take 75 mg by mouth daily famotidine (PEPCID) 10 MG tablet Yes Yes Sig: Take 10 mg by mouth 2 times daily as needed (stomach upset while on clopidogrel) ferrous sulfate (FE TABS) 325 (65 Fe) MG EC tablet 01/14/2024 at am Yes Yes Sig: Take 325 mg by mouth daily furosemide (LASIX) 40 MG tablet 01/14/2024 at am Yes Yes Sig: Take 40 mg by mouth daily hydrOXYzine HCl (ATARAX) 25 MG tablet 01/14/2024 at am Yes Yes Sig: Take 50 mg by mouth every 6 hours as needed for itching lisinopril (ZESTRIL) 20 MG tablet 01/15/2024 at am Yes Yes Sig: Take 20 mg by mouth daily mirtazapine (REMERON) 30 MG tablet 01/14/2024 at hs Yes Yes Sig: Take 15 mg by mouth at bedtime multivitamin, therapeutic (THERA-VIT) TABS tablet 01/14/2024 at am Yes Yes Sig: Take 1 tablet by mouth daily oxyCODONE IR (ROXICODONE) 10 MG tablet 01/15/2024 at 1630 (x2 today) Yes Yes Sig: Take 10 mg by mouth 3 times daily pregabalin (LYRICA) 75 MG capsule 01/15/2024 at x2 Yes Yes Sig: Take 75 mg by mouth 2 times daily tamsulosin (FLOMAX) 0.4 MG capsule 01/15/2024 at am Yes Yes Sig: Take 0.8 mg by mouth daily tiZANidine (ZANAFLEX) 4 MG tablet 01/13/2024 at pm Yes Yes Sig: Take 4 mg by mouth every 6 hours as needed for muscle spasms vitamin E (TOCOPHEROL) 1000 units (450 mg) CAPS capsule 01/14/2024 at am Yes Yes Sig: Take 1,000 Units by mouth daily zolpidem (AMBIEN) 10 MG tablet 01/13/2024 at hs Yes Yes Sig: Take 10 mg by mouth nightly as needed for sleep Facility-Administered Medications: None Allergies Allergies Allergen Reactions Metformin Nausea Immunization History Immunization History Administered Date(s) Administered COVID-19 MONOVALENT 12+ (Pfizer) 12/09/2020 Social History I have reviewed this patient's social history and updated it with pertinent information if needed. Osvaldo Zuniga Family History I have reviewed this patient's family history and updated it with pertinent information if needed. No family history on file. Review of Systems The 10 point Review of Systems is negative Physical Exam Temp: 98.1 ??F (36.7 ??C) Temp src: Oral BP: 126/55 Pulse: 94 Resp: 18 SpO2: 91 % O2 Device: None (Room air) Vital Signs with Ranges Temp: [98.1 ??F (36.7 ??C)-99.5 ??F (37.5 ??C)] 98.1 ??F (36.7 ??C) Pulse: [94-95] 94 Resp: [17-18] 18 BP: (106-126)/(52-68) 126/55 SpO2: [91 %-98 %] 91 % 305 lbs 0 oz Body mass index is 41.37 kg/m??. GENERAL APPEARANCE: awake EYES: Eyes grossly normal to inspection NECK: no adenopathy RESP: lungs clear CV: regular rates and rhythm LYMPHATICS: normal ant/post cervical and supraclavicular nodes ABDOMEN: soft, nontender, obese. MS: Lymphedema L>R. Chronic venous stasis changes lower legs. Right TKA scar well healed. Some pain and warmth right knee. SKIN: no suspicious lesions or rashes Data All laboratory data reviewed Component Latest Ref Rng 01/16/2024 8:45 AM WBC 4.0 - 11.0 10e3/uL 12.0 (H) RBC Count 4.40 - 5.90 10e6/uL 3.34 (L) Hemoglobin 13.3 - 17.7 g/dL 9.2 (L) Hematocrit 40.0 - 53.0 % 27.9 (L) MCV 78 - 100 fL 84 MCH 26.5 - 33.0 pg 27.5 MCHC 31.5 - 36.5 g/dL 33.0 RDW 10.0 - 15.0 % 15.8 (H) Platelet Count 150 - 450 10e3/uL 97 (L) Component Latest Ref Rn 01/16/2024 8:45 AM Sodium 135 - 145 mmol/L 132 (L) Potassium 3.4 - 5.3 mmol/L 4.1 Carbon Dioxide (CO2) 22 - 29 mmol/L 19 (L) Anion Gap 7 - 15 mmol/L 14 Urea Nitrogen 8.0 - 23.0 mg/dL 48.1 (H) Creatinine 0.67 - 1.17 mg/dL 4.49 (H) GFR Estimate >60 mL/min/1.73m2 14 (L) Calcium 8.8 - 10.2 mg/dL 8.0 (L) Chloride 98 - 107 mmol/L 99 Glucose 70 - 99 mg/dL 119 (H) Alkaline Phosphatase 40 - 150 U/L 122 AST 0 - 45 U/L 19 ALT 0 - 70 U/L 16 Protein Total 6.4 - 8.3 g/dL 6.4 Albumin 3.5 - 5.2 g/dL 2.5 (L) Bilirubin Total <=1.2 mg/dL 1.4 (H) Component Latest Ref Rng 01/16/2024 8:45 AM CRP Inflammation <5.00 mg/L 302.98 (H) Sed Rate 0 - 20 mm/hr 79 (H) Culture from right knee at [facility] with MSSA Associated attestation - Urbano Johnson MD - 01/16/2024 2:37 PM CDT Physician Attestation I saw and evaluated Osvaldo Zuniga as part of a shared [employer] PERSON/PA visit. I personally reviewed the vital signs, medications, labs, and imaging. I personally provided a substantive portion of care for this patient and I approve the care plan aswritten by the ANSHUL. I was involved with Medical Decision Making including: Please see A&P for additional details of medical decision making. Urbano Johnson MD Date of Service (when I saw the patient): 01/16/24 * Barby Urbano PA-C - 01/16/2024 8:41 AM CDTAssociated Order(s): UROLOGY IP CONSULT [facility] Inpatient Consultation Note Osvaldo Zuniga Age: [age] year old Date of : 1955 Date of Admission: 01/15/2024 Reason for consult: Traumatic crandall, OMAR Requesting physician: Dr Hilario History of Present Illness: 68 yo M with urologic history of prostate cancer and urge incontinence ([place] [facility]) admitted withseptic arthritis. Directly admitted from [facility]. Per chart review, Cr noted to jump at [facility] from 1.0 to 2.21 so renal US was obtained and showed distended bladder and bilateral hydronephrosis. Crandall placed (reportedly with some trauma/bleeding) at OSH prior to admission. Upon arrival here, crandall noted to not be draining any urine though somebleeding noted. BUS for 668 ml last night. Nursing attempted to irrigate but irrigation fluid just c eb out around catheter so urology was contacted who advised to remove crandall and allow patient to try to void, trend BUS. BUS this morning for 261 ml after voiding into briefs. This morning, patient reports he feels he is voiding normally and denies suprapubic discomfort or dysuria. He is really hoping to avoid further catheter placement, at least not while I'm awake. Urologic h/o prostate cancer s/p ERBT + percutaneous cryoablation 2021, follows with [place] [facility]. Most recent PSA <0.10 on 12/26/23. Also with sacral neuromodulation for OAB and urge incontinence d/t radiation per the limited [place] records I am able to review. I do see a CT urogram report from August 2023 which shows mild L hydronephrosis presumably due to distal ureteral inflammation from prior radiation. He is on Flomax TOE FORMER STITCHDOWNS which has been continued here. Baseline PVR (from records of Uroflow testing earlier this year) of ~250 ml. On Plavix which is held for possible orthopedic procedure. On broad spectrum abx now for septic arthritis. At time of evaluation patient unsure if he will be going to OR for orthopedic procedure today but he is NPO. Cr up to 4.49 on this morning labs. No urine studies Past Medical History: No past medical history on file. Past Surgical History: No past surgical history on file. Social History: Immunizations: Immunization History Administered Date(s) Administered COVID-19 MONOVALENT 12+ (Pfizer) 12/09/2020 Allergies: Allergies Allergen Reactions Metformin Nausea Review of Systems: Comprehensive review of systems from the Admission note dated 01/15/24 at [facility] was reviewed with no changes except per HPI. Examination: BP 126/55 (BP Location: Right arm) Pulse 94 Temp 98.1 ??F (36.7 ??C) (Oral) Resp 18 Ht 1.829 m (6') Wt 138.3 kg (305 lb) SpO2 91% BMI 41.37 kg/m?? General: Alert and oriented, no distress, supine in bed HEENT: Face symmetric, mucous membranes moist and pink Respiratory: Breathing unlabored, no audible wheezing Cardiac: Extremities warm and well perfused Abdomen soft, obese, no suprapubic tenderness : Blood streaked urine in briefs Pysch: Normal mood and affect Skin: No evident rashes or lesions Imaging: US RENAL BILATERAL 01/15/24 ([facility]) 1. Suboptimal exam due to the patient`s large body habitus and inability to roll into an optimal imaging position 2. Kidneys are normal in size and echogenicity with moderately prominent hydronephrosis and moderate distention of the bladder. Impression: 68 yo M with traumatic / malplaced crandall (removed overnight and now voiding), bilateral hydronephrosis on renal US 01/14, OMAR. H/o prostate cancer s/p ERBT and cryoablation ([place] [facility]). Plan: - Crandall out and patient now voiding normally with PVR at about his baseline (261 ml). No urgent need for crandall replacement, though worsening OMAR and bilateral hydronephrosis yesterday on ultrasoundyesterday is of concern. Due to body habitus and limitation of US, recommend non-contract CT A/P tofurther evaluate. Consider nephrology consult. - We did discuss possibility of crandall replacement if bilateral hydronephrosis persists. If he goes to OR for orthopedic procedure today, crandall could possibly be placed in OR due to recent prostate trauma and patient's fear of painful crandall placement. - Of note, appears to have some baseline incomplete emptying (PVR ~250cc) and mild left hydronephrosis (CT urogram Aug 2023) at baseline. - Continue Flomax. UA/Ucx ordered. Trend PVRs. Will review case with attending urologist. Will follow CT results today. Barby Urbano PA-C [facility] Pager: [phone] Office: [phone] Associated attestation - Donnie Woods MD - 01/20/2024 1:18 PM CDT Physician Attestation I have reviewed and discussed with the advanced practice provider their history, physical and plan for Osvaldo Zuniga. I did not participate in a shared visit; this is an advanced practice provider only visit. Donnie Woods MD Date of Service (when I saw the patient): I did not personally see this patient today. documented in this encounter Nursing Notes * Tiffany Leal RN - 01/17/2024 8:42 PM CDT VSS. sleepy but rouses to voice, responds appropriately. Denies nausea. Dressing to right knee CDI,hemovac in place with small amount of sanguinous drainage. Denies pain. Family updated. Report given to ortho/spine RN. Pt transferred back to room 2412. documented in this encounter Miscellaneous Notes * Plan of Care - Leatha Morrissey RN - 01/23/2024 11:21 AM CDT Goal Outcome Evaluation: Patient vital signs are at baseline: Yes Patient able to ambulate as they were prior to admission or with assist devices provided by therapies during their stay: Yes Patient MUST void prior to discharge: No, Reason: patient discharging with Crandall in place Patient able to tolerate oral intake: Yes Pain has adequate pain control using Oral analgesics: Yes Discharge AVS given and reviewed with patient. Patient discharged to TCU. * Plan of Care - Teagan Haro, PT - 01/23/2024 11:21 AM CDT Physical Therapy Discharge Summary Reason for therapy discharge: Discharged to transitional care facility. Progress towards therapy goal(s). See goals on Care Plan in Epic electronic health record for goal details. Goals not met. Barriers to achieving goals: discharge from facility. Therapy recommendation(s): Continued therapy is recommended. Rationale/Recommendations: Patient would benefit from PT eval at TCU in order to increase strength, activity tolerance, balance and independence with mobility. Pt not seen by discharging therapist on this date, note written based on previous treating therapist's notes and recommendations * Plan of Care - Armando Valencia OTR - 01/23/2024 11:21 AM CDT Occupational Therapy Discharge Summary Reason for therapy discharge: Discharged to transitional care facility. Progress towards therapy goal(s). See goals on Care Plan in [facility] electronic [facility] record for goal details. Goals partially met. Barriers to achieving goals: discharge from facility. Therapy recommendation(s): Continued therapy is recommended. Rationale/Recommendations: Pt significantly below baseline, limited by pain, decreased activity tolerance, and weakness. Currently requiring A x 2. TCU rec prior to return home. * Plan of Care - Carlos Gómez RN - 01/23/2024 4:22 AM CDT Goal Outcome Evaluation: Summary 01/22/24. [id number] Patient is alert and oriented X4. Forgetful at times. VSS on RA with good sat. Up with assist of 2 with gait belt and walker. On regular diet. On daily weight check. PICC with single lumen intact andwith good blood return. Patient reports pain, prn oxycodone was given with effective results. CMS intact. BLE edema and scrotal. Dressing dry and intact . Continent of bowel, crandall catheter in place w ith moderate output. Discharge 01/22 to TCU. * Plan of Care - Amy Barrera RN - 01/22/2024 11:23 PM CDT Images from the original note were not included. Goal Outcome Evaluation: Goal Outcome Evaluation: Patient vital signs are at baseline: Yes Patient able to ambulate as they were prior to admission or with assist devices provided by therapies during their stay: No. Pt up with assist of 2, GB, and walker. Pt has an unsteady gait. Patient MUST void prior to discharge: No, Reason: Pt has a crandall catheter due to retention. Pt to discharge with crandall. Patient able to tolerate oral intake: Yes Pain has adequate pain control using Oral analgesics: Yes. 5-10mg of PRN oxy, tylenol, and ice. Does patient have an identified swimming coach: Yes Has goal D/C date and time been discussed with patient: Yes TBD A&O x4. VSS on RA. Pt ate 25% of his meal. He reported some nausea so zofran given with good results as pt did not vomit. R knee silvestre wrap in place and CDI. CMS intact. PICC Line patent. Has scrotal and BLE edema. Will continue to monitor. * Plan of Care - Sydni Mendez RN - 01/22/2024 6:00 AM CDT Goal Outcome Evaluation: Patient vital signs are at baseline: Yes Patient able to ambulate as they were prior to admission or with assist devices provided by therapies during their stay: No, Reason: Pt up to bedside commode only with assistance of 2. Patient MUST void prior to discharge: No, Reason: Pt has a crandall catheter due to retention Patient able to tolerate oral intake: Yes Pain has adequate pain control using Oral analgesics: Yes Does patient have an identified swimming coach: Yes Has goal D/C date and time been discussed with patient: Yes TBD A&O x4. VSS on RA. R knee Aquacell dressing has Moderate amount of old dry drainage. Site marked. Gauze dressing and Silvestre wrap over Aqua cell are CDI and to be left in place. Up with assistance of2 to bedside commode only. CMS intact. PICC Line patent. Do not remove Crandall Pt to be discharge with crandall in place with follow up with Urology. Pt has received Potassium replacement x2 this shift. Next Potassium with AM blood work. Has scrotal and BLE edema. * Plan of Care - Jeremiah Mendoza RN - 01/21/2024 9:13 PM CDT Goal Outcome Evaluation: Summary: [id number] 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 Septic joint (H) Orientation: A&O x4 POD#: Post-operative day #4 Activity Level: assist of 2, walker pivot to BSC Behavior & Aggression:Green Pain : C/O 8/10 Pain Managing with oxy which has been effective for him VS: Stable Lab: Cr WNL today Bowel/Bladder: crandall Drains/Devices: Crandall Intact and patent with good output Skin: scattered scabs and abrasions, pt pick at skin baseline. Knee incision covered with silvestre CMS:intact Plan: discharge to TCU Orders Placed This Encounter Advance Diet as Tolerated: Regular Diet Adult Other Important Info: Hemovac removed this AM * Plan of Care - Miguel Shah RN - 01/21/2024 6:49 AM CDT Goal Outcome Evaluation: [id number] Summary:Staph aureus right knee septic arthritis: S/p right revision total knee arthroplasty with placement of antibiotic spacer on 01/16 Orientation: A/O x4 Activity: 2 with lift Diet/BS Checks: regular diet Tele: NA IV Access/Drains: PIV /SL ,R arm PICC,hemovac, Crandall catheter Pain Management: scheduled Tylenol,Denies pain Bowel/Bladder: Crandall cath in place Skin/Wounds: R knee incision,Scattered bruises,Scrotum swollen D/C Disposition:Pending TCU Other Info: BLE edema * Plan of Care - Jeremiah Mendoza RN - 01/20/2024 2:42 PM CDT Goal Outcome Evaluation: Goal Outcome Evaluation: Summary: [id number] 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 Septic joint (H) Orientation: A&O x4 POD#: Post-operative day #3 Activity Level: assist of 2, walker, and Mervin Steady Behavior & Aggression:Green Pain : C/O 8/10 Pain Managing with oxy which has been effective for him VS: Stable Lab: elevated CR trending down Bowel/Bladder: WNL Drains/Devices: Crandall Intact and patent with good output, PICC is intact and patent Skin: scattered scabs and abrasions, pt pick at skin baseline. Knee incision covered with silvestre CMS:intact Plan: discharge to TCU Orders Placed This Encounter Advance Diet as Tolerated: Regular Diet Adult Other Important Info: some bleeding noted from urethra following getting up to the commode, sign writer hand and hospitalist assessed has been ongoing per pt when he gets up to commode, possibly from catheter tugging when he stands up, stat lock was moved closer to insertion to prevent tugging. No blood/ clots noted in crandall bag and urine is straw colored. No further bleeding once pt was back in bed, continue to monitor per hospitalist. * Plan of Care - Day Solorzano RN - 01/20/2024 7:02 AM CDT Goal Outcome Evaluation: POD # 3 - Right revision total knee arthroplasty A&Ox3, disoriented to place. VSS on RA. CMS intact ex bilateral LE edema. Incision CDI covered with silvestre wrap. Hemovac drain in place R knee with serosanguinous drainage. Crandall in place with adequate output. Pain managed with schedule Tylenol. R PICC SL. L PIV SL w/ intermittent IV abx. Scattered bruising to both arms. Up with Ax2 to bedside commode w/ sera steady. PT/OT following. Pending TCUplacement. * Plan of Care - Jeremiah Mendoza RN - 01/20/2024 12:05 AM CDT Goal Outcome Evaluation: Summary: [id number] 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 Septic joint (H) Orientation: A&O x4 POD#: Post-operative day #2 Activity Level: assist of 2, walker, and Mervin Steady Behavior & Aggression:Green Pain : C/O 8/10 Pain Managing with oxy which has been effective for him VS: Stable Lab: elevated CR trending down, HGB 7.5 trending morris Bowel/Bladder: WNL, had 2 Bowel movements today Drains/Devices: Crandall Intact and patent with good output Skin: scattered scabs and abrasions, pt pick at skin baseline. Knee incision covered with silvestre CMS:intact Plan: discharge to TCU Orders Placed This Encounter Advance Diet as Tolerated: Regular Diet Adult Other Important Info: * Plan of Care - Denise Bay RN - 01/19/2024 5:52 AM CDT Goal Outcome Evaluation: Orientation: A/O x4 Activity: 2 with lift Diet/BS Checks: regular Tele: NA IV Access/Drains: PIV infusing, hemovac, Crandall catheter Pain Management: scheduled Tylenol given Bowel/Bladder: BSC / Crandall cath Skin/Wounds: R knee incision D/C Disposition: TBD Other Info: BLE edema * Plan of Care - Alexia Hernandez RN - 01/18/2024 9:49 PM CDT Goal Outcome Evaluation: Plan of Care Reviewed With: patient A/O x4, forgetful. VSS on RA. LR infusing @ 75ml/hr. Crandall/Hv in place. Pain managed with prn Oxy and cool pack. BLE edema. R knee incision CDI. Call light within reach, plan of care ongoing. * Plan of Care - Kacie Devi RN - 01/18/2024 6:52 AM CDT Goal Outcome Evaluation: Summary: 01/17/24-01/18/24; [id number] Diagnosis: Septic R knee, R knee arthroplasty w/ placement of abx spacer POD: 1 Orientation: A/O x3-4, disoriented to place at times, intermittent confusion Vitals/Tele: intermittent soft BP on 2L O2, O2 weaned to 1L IV Access/drains: L PIV SL; crandall in place Diet: Regular Mobility: A2 Lift Pain: often denies pain, reported pain 6/10 this AM, given scheduled tylenol GI/: crandall in place, no BM this shift Wound/Skin: hemovac in place R knee with sanguinous drainage , scattered bruising Consults: orthopedics and urology following Discharge Plan: pending improvement * Plan of Care - Alexia Hernandez RN - 01/17/2024 11:10 PM CDT Goal Outcome Evaluation: Pt arrived on the floor around after 9pm. Drowsy but able to say name and birthday. Denies pain. On3L NC sating btw 90-94%. Capno on. LR infusing @ 50ml/hr. R knee silvestre wrap dressing CDI. BLE edema. Crandall in place and patent with dark sandrita/ bloody urine output. HV in place. Call light within reach. Plan of care ongoing. * Brief Op Note - Caleb Garcia MD - 01/17/2024 7:[address] [facility] Brief Operative Note Pre-operative diagnosis: Staphylococcal arthritis of right knee (H) [M00.061] Post-operative diagnosis Same as pre-operative diagnosis Procedure: RIGHT REVISION TOTAL KNEE ARTHROPLASTY, Right - Knee WITH PLACEMENT OF ANTIBIOTIC SPACER, Right - Knee Surgeon: Surgeons and Role: * Caleb Garcia MD - Primary * Albania Jackson PA-C - Assisting Anesthesia: Choice with Block Estimated Blood Loss: 200 ml Drains: Hemovac Specimens: ID Type Source Tests Collected by Time Destination A : Right knee tissue #1 Tissue Knee, Right ANAEROBIC BACTERIAL CULTURE ROUTINE, AEROBIC BACTERIAL CULTURE ROUTINE Caleb Garcia MD 01/17/2024 6:42 PM B : Right knee synovial fluid Synovial fluid Knee, Right ANAEROBIC BACTERIAL CULTURE ROUTINE, AEROBIC BACTERIAL CULTURE ROUTINE Caleb Garcia MD 01/17/2024 6:42 PM C : Right knee tissue #2 Tissue Knee, Right ANAEROBIC BACTERIAL CULTURE ROUTINE, AEROBIC BACTERIAL CULTURE ROUTINE Caelb Garcia MD 01/17/2024 6:41 PM D : Right knee tissue #3 Tissue Knee, Right ANAEROBIC BACTERIAL CULTURE ROUTINE, AEROBIC BACTERIAL CULTURE ROUTINE Caleb Garcia MD 01/17/2024 6:41 PM E : Right knee tissue #4 Tissue Knee, Right ANAEROBIC BACTERIAL CULTURE ROUTINE, AEROBIC BACTERIAL CULTURE ROUTINE Caleb Garcia MD 01/17/2024 6:41 PM F : Right knee tissue #5 Tissue Knee, Right ANAEROBIC BACTERIAL CULTURE ROUTINE, AEROBIC BACTERIAL CULTURE ROUTINE Caleb Garcia MD 01/17/2024 6:41 PM Findings: Evidence of infection: deep space infection. Jayme purulence in the intraarticular space Complications: None. Implants: Implant Name Type Inv. Item Serial No. [employer] Hr Developer Lot No. LRB No. Used Action BONE CEMENT SIMPLEX FULL DOSE 6191-1-001 - [id number] Cement, Bone BONE CEMENT SIMPLEX FULL DOSE 6191-1-001 [employer] [id number] Right 3 Implanted IMP COMP FEM STRK TRIATHLN DIST AUG 5MM RT 6 5540-A-602 - [id number] Total Joint Component/Insert IMP COMP FEM STRK TRIATHLN DIST AUG 5MM RT 6 5540-A-602 [employer] ([employer]) [id number] Right 1 Implanted IMP COMP FEM STRK TRIATHLN DIST AUG 5MM RT 6 5540-A-602 - [id number] Total Joint Component/Insert IMP COMP FEM STRK TRIATHLN DIST AUG 5MM RT 6 [id number]-A-602 [employer] ([employer]) [id number] Right 1 Implanted IMP COMP FEM STRK TRIATHLN PS RT 6 5515-F-602 - [id number] Total Joint Component/Insert IMP COMP FEM STRK TRIATHLN PS RT 6 5515-F-602 [employer] [id number] Right 1 Implanted TRIATHLON ALL POLY TIBIAL COMPENT - PS SIZE #5, 11MM PS Metallic Hardware/[place] M[employer]EL [id number] Right 1 Implanted RIGHT KNEE 4 COMPONENTS Right 1 Explanted * Op Note - Caleb Garcia MD - 01/17/2024 5:27 PM CDT Preoperative diagnosis: 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 Postoperative diagnosis: As above Procedure: Explantation right total knee arthroplasty Surgeon: Caleb Garcia MD Industrial Maintenance Manager: Albania Jackson PA-C A physicians respiratory assistant was available for the surgery and participated to decrease the patient's morbidity by assisting with positioning, manipulation of the limb during the procedure, surgical retraction as necessary, closure of the surgical wound and transferring the patient back to a hospital bed Anesthesia: General Estimated blood loss: 200 cc Complications: None readily apparent Indication for Procedure Osvaldo Zuniga is a 68 year old male who had a long history of issues with right knee pain. The patient previously undergone a right total knee arthroplasty. He previously underwent poly exchange in 2019. Unfortunately, knee pain has recurred and subsequently progressed over the past several weeks. The knee was aspirated and cell count was over 118,000. Cultures were positive for staph Aureus. This has progressed to the point where it is now affecting the patient's quality of life. As this has been refractory to conservative management, risks, benefits and alternatives of revision right total knee arthroplasty were discussed with the patient. This included but was not limited to continued pos toperative pain, stiff total knee, prosthetic joint infection, injury to neurovascular structure and thromboembolic events. The patient was in agreement and thus, was brought to the hospital for a right total knee revision arthroplasty today. Description of Procedure Osvaldo was identified in the preoperative holding area. Informed consent was obtained as outlined above. The patient was in agreement. Subsequently, the right knee was marked and the patient was brought back to the operating room where they were placed under general anesthetic. The patient was then carefully positioned supine on the operating table and all bony prominences were well padded. At that point, the right leg prepped and draped in standard sterile fashion. A surgical time-out was performed. The correct patient identification number, operative site, surgical procedure and operative equipment were confirmed. All parties were in agreement. Perioperative antibiotics were given and in addition to 1 gram of TXA at the initiation of incision. An Esmarch bandage was used to exsanguinate the limb and a tourniquet was inflated to 300 mmHg. Total tourniquet time for the case was 75 minutes. This was not reinflated. We then began with a standard anterior approach to the right knee. Midline incision was created at the previous incision through the subcutaneous tissue down to the extensor mechanism. Full-thickness skin flaps were raised. Thejoint was then entered through a median parapatellar arthrotomy. Gross purulence was returned from the joint. 5 tissue samples were sent for culture. Medial release was performed. The patella was inspected and found to be secure. The knee was flexed and inspected. A circumferential anterior synovectomy was then performed. We began with component removal. Collateral retractors utilized to protect the MCL. The polyethylene insert was removed with an osteotome and Colt clamp. The prosthetic bone interface was then dissected with Bovie electrocautery. This was subsequently loosened with a combination of an ACL saw blade and thin osteotomes. Femoral componentwas subsequently removed with a few blows of an offset drift. In similar fashion, the tibial component was loosened with an ACL saw blade and thin osteotomes. Again, this was subsequently removed with an offset drift. The patellar component was also removed with an oscillating saw. After component removal, the posterior joint capsule was debrided. Care was taken to ensure all infected material was removed. At this time we began reconstructing the knee. A PCL retractor was placed in the tibia exposed. An intramedullary guide was placed engaging the intramedullary cortex and over reamed sequentially to ensure good diaphyseal contact. An intramedullary guide was utilized to revise the proximal tibial cut. Ensuring good fit a tibial trial was placed which had proper rotation. After this a baseplate wasplaced and the tibial keel was punched. A trial tibial component was placed. Attention was returned to the femur. The femoral canal was entered with an opening Reamer. This wassubsequently reamed up to a diaphyseal engagement. The distal femoral cut was freshened. The femoral box was deepened as needed. The trial was pain and to accept a component approximately 30 mm from the medial epicondyle. Posterior skim and chamfer cuts were performed as necessary. Trial was removed in augments were placed as necessary. After this a trial femoral component was placed. The a polyethylene spacer was placed in the knee again trialed. Optimal stability was obtained with a 13 mm PS all polyethylene tibial insert. After this all trials were removed and the knee was copiously irrigated with pulse lavage. Antibiotic cement dowels werethen created using 1 batch or PMMA cement with 4 grams of vancomycin and 2.4 grams of tobramycin per batch. There were placed into the femoral and tibial intramedullary spaces. After cleaning the cancellous bony surface the femoral component was impacted into place followed by the tibial component utilizing 2 batches of poly methylmethacrylate cement with the same concentration of vancomycin and tobramycin. These were impacted securely until they were down on the bone cuts and excess cement was removed. At that point, a trial insert was placed into the tibial tray and the knee was brought into full extension. Excess cement was removed. At that point, we allowed the cement to harden. The knee was again tested for stability and found to be excellent. We then let down the tourniquet. Hemostasis was then obtained. We then performed a standard layered closure with a combination of #5 Vicryl and #1 Strata fix for the arthrotomy and 2 0 Vicryl and a elvira for the skin. All instrument, needle and lap counts were correct at the end of the case in accordance with hospital protocol. A sterile dressing was applied and a compressive wrap was placed. Postoperative Plan Osvaldo Zuniga will be admitted to the hospital for postoperative pain control monitoring. Will place a consultation of ID service for antibiotic tailoring. He will undergo a physical therapy regimen.He will receive Aspirin and Plavix for DVT prophylaxis. Implants Migel Triathlon total knee system The femoral component was a posterior stabilized size 6 right. The tibial component was a size 5 13mm all polyethylene tibia. * Plan of Care - Eliu Badillo RN - 01/17/2024 6:50 AM CDT Date/Time 01/15-01/17/24 [id number] Trauma/Ortho/Medical; Ortho Diagnosis: Septic R knee POD#:NA Surgery planned for 01/16 Removal of previous TKA and placement of antibiotic spacer. Mental Status: A&Ox4. Activity/dangle: A2 Lift Diet: NPO Pain: denied this shift Crandall/Voiding: Retention persisted. Urology consulted for management, ended up requiring cysto placement by urology. Patient will discharge with crandall in place. Tele/Restraints/Iso: N/A 02/LDA: PIV running NS at 100cc/hr. D/C Date: TBD. Other Info: Significant swelling to BLE. * Provider Notification - Eliu Badillo RN - 01/16/2024 9:36 PM CDT MD Notification Notified Person: MD Notified Person Name: Eduarda Aguirre Notification Date/Time: 01/16/24 21:36 Notification Interaction: Mendoza Purpose of Notification: Pt is on q2h BG checks is that what you want ordered, or do you want him to be on the standard BG checks? please advise next steps. Orders Received: Change to q6 BG checks Comments: * Plan of Care - Crys Oliver RN - 01/16/2024 6:40 PM CDT Goal Outcome Evaluation: .Date/Time 01/16/24 [id number] Trauma/Ortho/Medical; Ortho Diagnosis: Septic R knee POD#:NA Surgery planned for tomorrow Removal of previous TKA and placement of antibiotic spacer. Mental Status: A&Ox4. Activity/dangle: A2 Lift Diet: Regular Pain: PRN oxycodone, effective. Crandall/Voiding: Retention persisted. Urology consulted for management, ended up requiring cysto placement by urology. Patient will discharge with crandall in place. Tele/Restraints/Iso: N/A 02/LDA: PIV running NS at 100cc/hr. D/C Date: TBD. Other Info: NPO at midnight for surgery tomorrow. Significant swelling to BLE. 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 Unsure if he has gotten oob yet Behavior & Aggression:Green Pain : C/O 8/10 Pain mostly with movement, was able to sleep and told sign writer hand he was comfortable near the end of shift VS: Stable Bowel/Bladder: Crandall was in place on pt arrival was placed at previous facility and was a traumaticinsertion per report minimal output since insertion with hematuria as well per report they also reported they did not empty crandall bag before he left the facility. Has had no output since he arrived to the unit, marked hematuria noted in urine bag, hospitalist notified regarding this and whether sign writer hand should irrigate the crandall. Was told to irrigate the crandall and that urology would be consulted. Attempted irrigating crandall with sterile n/s and was unsuccessful and irrigant bypassed catheter with minimal amounts draining back to crandall bag. Urology were paged and sign writer hand was told to remove catheter and have pt attempt to void throughout the night and if he develops symptoms to attempt replacing 16fr crandall utilizing uro-jet for pt comfort. Passed on to incoming shift and crandall was removed and pt was educated regarding symptoms to and to notify staff if he develops symptoms pt verbalized understanding. Skin: pt scratches and picks at skin and scabs, states that this has been a longstanding issue for him. Scattered abrasions, bruises, and scabs throughout body most prominent in lower arms. Has blanchable redness to back and buttocks. And has marquis/dry skin to BLE feet. Edema to BLE, most prominentin R knee and L foot. CMS:intact Plan: ortho, ID, and urology consulted possible surgery tomorrow currently NPO Orders Placed This Encounter NPO per Anesthesia Guidelines for Procedure/Surgery Except for: Meds, Ice Chips * Provider Notification - Jeremiah Mendoza RN - 01/15/2024 11:20 PM CDT Notification Notified Person: christine GRANT Notification Date/Time: 01/15/24, 11:15 Notification Interaction: [facility] answering service Purpose of Notification: crandall is not draining, per report from outside facility had a traumatic crandall insertion has some hematuria but only minamal output and now is not draining. Bladder scan showed 668ml retained. Attempted irrigation and was not successful. Pt is not having any abd discomfortor other symptoms with the retention. Orders Received: remove crandall and allow him to attempt to void until morning. If he begins to have any discomfort replace crandall with 16fr catheter using urojet. Page if unable to replace or other issues. Comments: * Provider Notification - Jeremiah Mendoza RN - 01/15/2024 9:40 PM CDT Notification Notified Person: MD Karlie Rosenthal Notification Date/Time: 01/15/242137 Notification Interaction: mendoza Purpose of Notification: Esther Rosenthal, pt has a crandall in place and he has only had minimal output since it was inserted at the previous facility, he had a traumatic crandall insertion per report and has marked hematuria. I completed a bladder scan on admit and it was 668ml, im unsure if they attempted to irrigate the crandall at the previous facility. do you want me to attempt irrigating the crandall and should he get a urology consult? Orders Received: yes to irrigation and urology consult Comments: * Pharmacy-Admission Medication History - Marilyn Kolb RPH - 01/15/2024 9:09 PM CDT Pharmacist Admission Medication History Admission medication history is complete. The information provided in this note is only as accurateas the sources available at the time of the update. Information Source(s): Hospital records via N/A. Transfer from [facility]. Pharmacy completed medication list 01/14/24 Pertinent Information: It was noted that clopidogrel started 01/05/24 Changes made to [facility] medication list: Added: all medications Deleted: None Changed: None Medication History Completed By: Marilyn Kolb [facility] 01/15/2024 9:09 PM [facility] Med List Medication Sig Last Dose alendronate (FOSAMAX) 70 MG tablet Take 70 mg by mouth every 7 days 01/14/2024 at am atorvastatin (LIPITOR) 10 MG tablet Take 10 mg by mouth daily 01/15/2024 at am calcitonin, salmon, (MIACALCIN) 200 UNIT/ACT nasal spray Maury 1 spray into one nostril alternatingnostrils daily Alternate nostril each day. 01/14/2024 at am celecoxib (CELEBREX) 200 MG capsule Take 200 mg by mouth 2 times daily as needed for moderate pain 01/14/2024 at am clobetasol (TEMOVATE) 0.05 % external ointment Apply topically 2 times daily 01/14/2024 at am clopidogrel (PLAVIX) 75 MG tablet Take 75 mg by mouth daily 01/15/2024 at am (restarted 01/05/24) DULoxetine (CYMBALTA) 60 MG capsule Take 120 mg by mouth daily 01/15/2024 at am famotidine (PEPCID) 10 MG tablet Take 10 mg by mouth 2 times daily as needed (stomach upset while on clopidogrel) ferrous sulfate (FE TABS) 325 (65 Fe) MG EC tablet Take 325 mg by mouth daily 01/14/2024 at am furosemide (LASIX) 40 MG tablet Take 40 mg by mouth daily 01/14/2024 at am hydrOXYzine HCl (ATARAX) 25 MG tablet Take 50 mg by mouth every 6 hours as needed for itching 01/14/2024 at am lisinopril (ZESTRIL) 20 MG tablet Take 20 mg by mouth daily 01/15/2024 at am mirtazapine (REMERON) 30 MG tablet Take 15 mg by mouth at bedtime 01/14/2024 at hs multivitamin, therapeutic (THERA-VIT) TABS tablet Take 1 tablet by mouth daily 01/14/2024 at am oxyCODONE IR (ROXICODONE) 10 MG tablet Take 10 mg by mouth 3 times daily 01/15/2024 at 1630 (x2 today) pregabalin (LYRICA) 75 MG capsule Take 75 mg by mouth 2 times daily 01/15/2024 at x2 tamsulosin (FLOMAX) 0.4 MG capsule Take 0.8 mg by mouth daily 01/15/2024 at am tiZANidine (ZANAFLEX) 4 MG tablet Take 4 mg by mouth every 6 hours as needed for muscle spasms 01/13/2024 at pm Vitamin D3 (VITAMIN D, CHOLECALCIFEROL,) 25 mcg (1000 units) tablet Take 25 mcg by mouth daily 01/14/2024 at am vitamin E (TOCOPHEROL) 1000 units (450 mg) CAPS capsule Take 1,000 Units by mouth daily 01/14/2024 at am zolpidem (AMBIEN) 10 MG tablet Take 10 mg by mouth nightly as needed for sleep 01/13/2024 at hs * Provider Notification - Gavi Montana RN - 01/15/2024 8:35 PM CDT Notification Notified Person: MD Notified Person Name: Leno Loveist Notification Date/Time: 01/15/2024 at 2035 Notification Interaction: Amcom Purpose of Notification: 2412 Direct admit has arrived to the unit, please assign provider and place orders. Thank you Orders Received: to see patient Comments: documented in this encounter Plan of Treatment Scheduled Orders Name Type Priority Associated Diagnoses Orde r Schedule XR Chest Port 1 View Imaging STAT Ente r condition for order release in comments for 2 Occurrences starting 01/19/2024, 1 completed documented as of this encounter Procedures Procedure Name Priority Date/Time Associated Diagnosis Comments BASIC METABOLIC PANEL Routine 01/23/2024 5:27 AM [...] LUMEN PLACEMENT Routine 01/19/2024 2:11 PM CDT CRP INFLAMMATION Routine 01/19/2024 7:26 AM CDT BASIC METABOLIC PANEL Routine 01/19/2024 7:26 AM CDT CBC WITH PLATELETS Routine 01/19/2024 7: 26 AM CDT HEMOGLOBIN Routine 01/18/2024 7:34 AM CDT CRP INFLAMMATION Routine 01/18/2024 7:34 AM CDT BASIC METABOLIC PANEL Routine 01/18/2024 7:34 AM CDT GLUCOSE BY [...] CULTURE ROUTINE Routine 01/17/2024 6:41 PM CDT REVISION, TOTAL ARTHROPLASTY, KNEE 01/17/2024 4:59 PM CDT Staphylococcal arthritis of right knee (H) Case Notes NEEDS IMPLANT SHEETBO reviewed/Billed per invoice and Epic prices (lower murdock) GLUCOSE BY METER Routine 01/17/2024 4:07 PM CDT GLUCOSE BY METER Routine 01/17/2024 11:2 4 AM CDT CRP INFLAMMATION Routine 01/17/2024 8:32 AM CDT BASIC METABOLIC PANEL Routine 01/17/2024 8:32 AM CDT CBC WITH PLATELETS Routine 01/17/2024 8: 32 AM CDT GLUCOSE BY METER Routine 01/17/2024 5:47 AM CDT GLUCOSE BY METER Routine 01/16/2024 10:1 5 PM CDT UA MACROSCOPIC WITH REFLEX TO MICRO AND CULTURE Routine 01/16/2024 4:40 PM CDT URINE CULTURE Routine 01/16/2024 4:40 PM CDT BLOOD CULTURE STAT 01/16/2024 2:09 PM CDT BLOOD CULTURE STAT 01/16/2024 2:[address] ABDOMEN PELVIS W/O CONTRAST Routine 01/16/2024 11:25 AM CDT MRSA MSSA PCR, NASAL SWAB STAT 01/16/2024 10:37 AM CDT IRRIGATION AND DEBRIDEMENT KNEE, PLACE ANTIBIOTIC CEMENT BEADS / SPACE Routine 01/16/2024 9:53 AM CDT Staphylococcal arthritis of right knee (H) TYPE AND SCREEN, ADULT STAT 01/16/2024 8:45 AM CDT ERYTHROCYTE SEDIMENTATION RATE AUTO Routine 01/16/2024 8:45 AM CDT CRP INFLAMMATION Routine 01/16/2024 8:45 AM CDT COMPREHENSIVE METABOLIC PANEL Routine 01/16/2024 8:45 AM CDT ABO/RH TYPE AND SCREEN STAT 01/16/2024 8:45 AM CDT CBC WITH PLATELETS Routine 01/16/2024 8: 45 AM CDT EKG 12-LEAD, TRACING ONLY Routine 01/16/2024 7:10 AM CDT documented in this encounter Results * (ABNORMAL) Basic metabolic panel (01/23/2024 5:27 AM CDT) [facility] Sodium 137 135 - 145 mmol/L 01/23/2024 [...] 8.8 - 10.2 mg/dL 01/23/2024 6:19 AM T LABORATORY Glucose 118(H) 70 - 99 mg/dL 01/23/2024 6:19 AM T LABORATORY Blood BLOOD SPECIMEN / Unknown Venipuncture / Unknown 01/23/2024 5:27 AM CDT 01/23/2024 5:54 AM CDT Susan Moody MD LAB - BLOOD ORDERABL LABORATORY [facility] [address], [address] [place] [address], [facility] [phone] * (ABNORMAL) Basic metabolic panel (01/22/2024 7:14 AM CDT) [facility] Sodium 139 135 - 145 mmol/L 01/22/2024 7:38 AM CDT LABORATORY Comment:Reference intervals for this test were updated on 06/13/2023 to more accurately reflect our healthy population. There may be differences in the flagging of prior results with similar values performed with this method. Interpretation of those prior results can be made in the context of the updated reference intervals. Potassium 3.9 3.4 - 5.3 mmol/L 01/22/2024 7:38 AM CDT LABORATORY Chloride 105 98 - 107 mmol/L 01/22/2024 7:38 AM CDT LABORATORY Carbon Dioxide (CO2) 27 22 - 29 mmol/L 01/22/2024 7:38 AM CDT LABORATORY Anion Gap 7 7 - 15 mmol/L 01/22/2024 7:38 AM CDT LABORATORY Urea Nitrogen 17.5 8.0 - 23.0 mg/dL 01/22/2024 7:38 AM CDT LABORATORY Creatinine 1.07 0.67 - 1.17 mg/dL 01/22/2024 7:38 AM CDT LABORATORY GFR Estimate 77 >60 mL/min/1. 73m2 01/22/2024 7:38 AM CDT LABORATORY Calcium 8.5(L) 8.8 - 10.2 mg/dL 01/22/2024 7:38 AM CDT LABORATORY Glucose 120(H) 70 - 99 mg/dL 01/22/2024 7:38 AM CDT LABORATORY Blood VENOUS LINE / Unknown Venipuncture / Unknown 01/22/2024 7:14 AM CDT 01/22/2024 7:19 AM CDT Susan Moody MD LAB - BLOOD ORDERABL ES LABORATORY [facility] [address], [address] [place] [address], [facility] [phone] * Potassium (01/22/2024 2:25 AM CDT) [facility] Potassium 3.6 3.4 - 5.3 mmol/L 01/22/2024 2:52 AM CDT LABORATORY Blood VENOUS LINE / Unknown Venipuncture / Unknown 01/22/2024 2:25 AM CDT 01/22/2024 2:39 AM CDT Jason Walker MD LAB - BLOOD ORDERAB LES Performing Organization Address City/[facility]/ZIP Co de Phone Number LABORATORY [facility] [address], [address] [place] [address], [facility] [phone] * (ABNORMAL) Potassium (01/21/2024 9:04 PM CDT) Potassium 3.3(L) 3.4 - 5.3 mmol/L 01/21/2024 9:32 PM CDT LABORATORY Blood VENOUS LINE / Unknown Venipuncture / Unknown 01/21/2024 9:04 PM CDT 01/21/2024 9:17 PM CDT Susan Moody MD LAB - BLOOD ORDERABL ES Performing Organization Address [facility]/ZIP Co de Phone Number LABORATORY [facility] [address], [address] [place] [address], [facility] [phone] * (ABNORMAL) Basic metabolic panel (01/21/2024 5:56 AM CDT) Sodium 140 135 - 145 mmol/L 01/21/2024 7:01 AM CDT LABORATORY Comment:Reference intervals for this test were updated on 06/13/2023 to more accurately reflect our healthy population. There may be differences in the flagging of prior results with similar values performed with this method. Interpretation of those prior results can be made in the context of the updated reference intervals. Potassium 3.6 3.4 - 5.3 mmol/L 01/21/2024 7:01 AM CDT LABORATORY Chloride 107 98 - 107 mmol/L 01/21/2024 7:01 AM CDT LABORATORY Carbon Dioxide (CO2) 23 22 - 29 mmol/L 01/21/2024 7:01 AM CDT LABORATORY Anion Gap 10 7 - 15 mmol/L 01/21/2024 7:01 AM CDT LABORATORY Urea Nitrogen 23.0 8.0 - 23.0 mg/dL 01/21/2024 7:01 AM CDT LABORATORY Creatinine 1.10 0.67 - 1.17 mg/dL 01/21/2024 7:01 AM CDT LABORATORY GFR Estimate 74 >60 mL/min/1. 73m2 01/21/2024 7:01 AM CDT LABORATORY Calcium 8.6(L) 8.8 - 10.2 mg/dL 01/21/2024 7:01 AM CDT LABORATORY Glucose 125(H) 70 - 99 mg/dL 01/21/2024 7:01 AM CDT LABORATORY Blood BLOOD SPECIMEN / Unknown Venipuncture / Unknown 01/21/2024 5:56 AM CDT 01/21/2024 6:35 AM CDT Susan Moody MD LAB - BLOOD ORDERABL ES LABORATORY [facility] [address], [address] [place] [address], [facility] [phone] * CT Abdomen Pelvis w/o Contrast (01/20/2024 8:46 AM CDT) Anatomical Region Laterality Modality Abdomen/Pelvis, SUBRAD CT [...] ABDOMEN AND PELVIS WITHOUT CONTRAST LOCATION: [facility] DATE: 01/20/2024 INDICATION: Following for hydronephrosis, [...] almost completely resolved. MUSCULOSKELETAL: Normal. Procedure Note Christine Ortiz MD - 01/20/2024 EXAM: CT ABDOMEN AND PELVIS WITHOUT CONTRAST LOCATION: [facility] DATE: 01/20/2024 INDICATION: Following for hydronephrosis, [...] Urbano PA-C IMG CT ORDERAB LES * (ABNORMAL) Basic metabolic panel (01/20/2024 6:33 AM CDT) Sodium 141 135 - 145 mmol/L 01/20/2024 7:13 AM CDT LABORATORY Comment:Reference intervals for this test were updated on 06/13/2023 to more accurately reflect our healthy population. There may be differences in the flagging of prior results with similar values performed with this method. Interpretation of those prior results can be made in the context of the updated reference intervals. Potassium 3.8 3.4 - 5.3 mmol/L 01/20/2024 7:13 AM CDT LABORATORY Chloride 107 98 - 107 mmol/L 01/20/2024 7:13 AM CDT LABORATORY Carbon Dioxide (CO2) 21(L) 22 - 29 mmol/L 01/20/2024 7:13 AM T LABORATORY Anion Gap 13 7 - 15 mmol/L 01/20/2024 7:13 AM T LABORATORY Urea Nitrogen 33.5(H) 8.0 - 23.0 mg/dL 01/20/2024 7:13 AM CDT LABORATORY Creatinine 1.50(H) 0.67 - 1.17 mg/dL 01/20/2024 7:13 AM T LABORATORY GFR Estimate 51(L) >60 mL/min/1. 73m2 01/20/2024 7:13 AM CDT LABORATORY Calcium 8.4(L) 8.8 - 10.2 mg/dL 01/20/2024 7:13 AM T LABORATORY Glucose 125(H) 70 - 99 mg/dL 01/20/2024 7:13 AM T LABORATORY Blood BLOOD SPECIMEN / Unknown Venipuncture / Unknown 01/20/2024 6:33 AM CDT 01/20/2024 6:44 AM CDT Susan Moody MD LAB - BLOOD ORDERABL ES LABORATORY [facility] [address], [address] [place] [address], [facility] [phone] * (ABNORMAL) Hemoglobin (01/20/2024 6:33 AM CDT) Hemoglobin 8.3(L) 13.3 - 17.7 g/dL 01/20/2024 6:46 AM CDT LABORATORY Blood BLOOD SPECIMEN / Unknown Venipuncture / Unknown 01/20/2024 6:33 AM CDT 01/20/2024 6:44 AM CDT Susan Moody MD LAB - BLOOD ORDERABL ES LABORATORY [facility] [address], [address] [place] [address], [facility] [phone] * XR Chest Port 1 View (01/19/2024 2:12 PM CDT) Anatomical Region Laterality Modality Chest Digital Radiogra phy Impressions 01/19/2024 2:37 PM CDT IMPRESSION: Right PICC tip at the mid SVC approximately 6 cm from the cavoatrial junction. Right lung and visualized left lung proctor are clear. Grossly unremarkable cardiomediastinal silhouette. SVITLANA ASCENCIO MD SYSTEM ID: [id number] Narrative 01/19/2024 2:37 PM CDT CHEST ONE [...] cardiomediastinal silhouette. SVITLANA ASCENCIO MD SYSTEM ID: [id number] Mervin Banegas PA-C IMG DIAGNOSTIC IM AGING ORDERABLES * Single Lumen PICC Placement (01/19/2024 2:11 PM CDT) Narrative Stratmeyer, Esther D, RN - 01/19/2024 2:11 PM CDT Esther Mccabe RN ? 01/19/2024 ??2:[address] [facility] Single Lumen PICC Placement Date/Time: 01/19/2024 2:11 PM Performed by: Esther Mccabe RN Authorized by: Mervin Banegas PA-C ??Indications: vascular access [employer]OTOCOL [...] procedure a time out was called ?? Matthews Protocol: the Joint Commission Matthews Protocol was followed ?? Preparation: Patient was [...] needles and guidewire disposed in sharps container Mervin Banegas PA-C PROCEDURE/MINOR S URGICAL ORDERABLES * (ABNORMAL) Basic metabolic panel (01/19/2024 7:26 AM CDT) Sodium 137 135 - 145 mmol/L 01/19/2024 8:26 AM [facility] Comment:Reference intervals for this test were updated on 06/13/2023 to more accurately reflect our healthy population. There may be differences in the flagging of prior results with similar values performed with this method. Interpretation of those prior results can be made in the context of the updated reference intervals. Potassium 3.8 3.4 - 5.3 mmol/L 01/19/2024 8:26 AM CDT LABORATORY Chloride 106 98 - 107 mmol/L 01/19/2024 8:26 AM [facility] Carbon Dioxide (CO2) 19(L) 22 - 29 mmol/L 01/19/2024 8:26 AM [facility] Anion Gap 12 7 - 15 mmol/L 01/19/2024 8:26 AM [facility] Urea Nitrogen 47.4(H) 8.0 - 23.0 mg/dL 01/19/2024 8:26 AM T LABORATORY Creatinine 2.19(H) 0.67 - 1.17 mg/dL 01/19/2024 8:26 AM [facility] GFR Estimate 32(L) >60 mL/min/1. 73m2 01/19/2024 8:26 AM T LABORATORY Calcium 8.2(L) 8.8 - 10.2 mg/dL 01/19/2024 8:26 AM [facility] Glucose 109(H) 70 - 99 mg/dL 01/19/2024 8:26 AM [facility] Blood STRUCTURE OF RIGHT UPPER LIMB / Unknown Venipuncture / Unknown 01/19/2024 7:26 AM CDT 01/19/2024 7:51 AM CDT Susan Moody MD LAB - BLOOD ORDERABL ES LABORATORY [facility] [address], [address] [place] [address], [facility] [phone] * (ABNORMAL) CBC with platelets (01/19/2024 7:26 AM CDT) [facility] WBC Count 6.0 4.0 - 11.0 10e3/uL [...] MD LAB - BLOOD ORDERABL ES LABORATORY [facility] [address], [address] [place] [address], [facility] [phone] * (ABNORMAL) CRP inflammation (01/19/2024 7:26 AM CDT) [facility] CRP Inflammation 206.33(H) <5.00 mg/L 01/19/2024 8:26 AM [facility] Blood STRUCTURE OF RIGHT UPPER LIMB / Unknown Venipuncture / Unknown 01/19/2024 7:26 AM CDT 01/19/2024 7:51 AM CDT Stacy Bland PA-C LAB - BLOOD ORD ERABLES LABORATORY [facility] [address] 1[address] floor, [address] [place] [address], [facility] [phone] * (ABNORMAL) Basic metabolic panel (01/18/2024 7:34 AM CDT) [facility] Sodium 139 135 - 145 mmol/L 01/18/2024 9:16 AM [facility] Comment:Reference intervals for this test were updated on 06/13/2023 to more accurately reflect our healthy population. There may be differences in the flagging of prior results with similar values performed with this method. Interpretation of those prior results can be made in the context of the updated reference intervals. Potassium 4.3 3.4 - 5.3 mmol/L 01/18/2024 9:16 AM [facility] Chloride 106 98 - 107 mmol/L 01/18/2024 9:16 AM [facility] Carbon Dioxide (CO2) 18(L) 22 - 29 mmol/L 01/18/2024 9:16 AM [facility] Anion Gap 15 7 - 15 mmol/L 01/18/2024 9:16 AM [facility] Urea Nitrogen 53.1(H) 8.0 - 23.0 mg/dL 01/18/2024 9:16 AM [facility] Creatinine 3.13(H) 0.67 - 1.17 mg/dL 01/18/2024 9:16 AM [facility] GFR Estimate 21(L) >60 mL/min/1. 73m2 01/18/2024 9:16 AM [facility] Calcium 8.1(L) 8.8 - 10.2 mg/dL 01/18/2024 9:16 AM [facility] Glucose 116(H) 70 - 99 mg/dL 01/18/2024 9:16 AM CDT LABORATORY Blood STRUCTURE OF LEFT UPPER LIMB / Unknown Venipuncture / Unknown 01/18/2024 7:34 AM CDT 01/18/2024 8:10 AM CDT Susan Moody MD LAB - BLOOD ORDERABL ES Performing Organization Address City/[facility]/ZIP Co de Phone Number LABORATORY [facility] [address], [address] [place] [address], [facility] * (ABNORMAL) Hemoglobin (01/18/2024 7:34 AM CDT) Hemoglobin 7.7(L) 13.3 - 17.7 g/dL 01/18/2024 8:14 AM CDT LABORATORY Blood STRUCTURE OF LEFT UPPER LIMB / Unknown Venipuncture / Unknown 01/18/2024 7:34 AM CDT 01/18/2024 8:10 AM CDT Susan Moody MD LAB - BLOOD ORDERABL ES Performing Organization Address City/[facility]/ZIP Co de Phone Number LABORATORY [facility] [address], [address] [place] [address], [facility] * (ABNORMAL) CRP inflammation (01/18/2024 7:34 AM CDT) CRP Inflammation 274.19(H) <5.00 mg/L 01/18/2024 9:16 AM CDT LABORATORY Blood STRUCTURE OF LEFT UPPER LIMB / Unknown Venipuncture / Unknown 01/18/2024 7:34 AM CDT 01/18/2024 8:10 AM CDT Stacy Bland PA-C LAB - BLOOD ORD ERABLES LABORATORY [facility] [address], [address] [place] [address], [facility] * (ABNORMAL) Glucose by meter (01/17/2024 8:16 PM CDT) GLUCOSE BY METER POCT 123(H) 70 - 99 mg/dL 01/17/2024 8:23 PM CDT LABORATORY POC Blood, Capillary BLOOD SPECIMEN / Unknown 01/17/2024 8:16 PM CDT 01/17/2024 8:23 PM CDT Jason Walker MD LAB - BEAKER POCT LABORATORY POC [facility] [address], [address] [place] [address] * XR Knee Port Right 1/2 [...] KNEE PORT RIGHT 1/2 VIEWS LOCATION: [facility] DATE: 01/17/2024 INDICATION: Post Op Total Knee COMPARISON: None. Procedure Note Alfa Patel, - 01/17/2024 EXAM: XR KNEE PORT RIGHT 1/2 VIEWS LOCATION: [facility] DATE: 01/17/2024 INDICATION: Post Op Total Knee COMPARISON: None. IMPRESSION: Postoperative changes of a revision right total kneearthroplasty with antibiotic spacer placement. No evidence of immediatehardware complication. Expected soft tissue edema and scattered foci ofgas. Surgical drain in place. [place] Jackson PA-C IMG DIAGNOSTIC IMAGI NG ORDERABLES * (ABNORMAL) Synovial fluid Aerobic Bacterial Culture Routine (01/17/2024 6:42 PM CDT) Culture 1+ Staphylococcus aureus(A) ALEXANDRE 01/22/2024 11:35 [...] MICRO GENE RAL ORDERABLES [facility] Inf. Diseases Diag. Lab [address] [facility], [address] [place], [place] [phone] * (ABNORMAL) Tissue Aerobic Bacterial Culture Routine (01/17/2024 6:42 PM CDT) Culture 1+ Staphylococcus aureus(A) ALEXANDRE 01/20/2024 2:53 AM CDT [facility] Tissue STRUCTURE OF RIGHT KNEE REGION / Unknown Non-blood Collection / Unknown 01/17/2024 6:42 PM CDT 01/17/2024 7:17 PM CDT Narrative Organism Antibiotic Method Susceptibility [...] 1 ug/mL: Susceptible Staphylococcus aureus Daptomycin ALEXANDRE 0.25 ug/mL: Susceptible Staphylococcus aureus Tetracycline ALEXANDRE <=1 ug/mL: Susceptible Staphylococcus aureus Doxycycline ALEXANDRE <=0.5 ug/mL: Susceptible Staphylococcus aureus Trimethoprim/Sulfa methoxazol e ALEXANDRE <=0.5/9.5 ug/mL: Susceptible Caleb Garcia MD LAB - MICRO GENE RAL ORDERABLES Performing Organization Address City/[facility]/ZIP Co de Phone Number [facility] Inf. Diseases Diag. Lab [address] [facility], Room [address] * Anaerobic Bacterial Culture Routine (01/17/2024 6:42 PM CDT) Culture No anaerobic organisms isolated ALEXANDRE 01/31/2024 8:08 AM CDT [facility] Synovial fluid STRUCTURE OF RIGHT KNEE REGION / Unknown Non-blood Collection / Unknown 01/17/2024 6:42 PM CDT 01/17/2024 7:18 PM CDT Caleb Garcia MD LAB - MICRO GENE RAL ORDERABLES [facility] Inf. Diseases Diag. Lab [address] [facility], [address] * Anaerobic Bacterial Culture Routine (01/17/2024 6:42 PM CDT) Culture No anaerobic organisms isolated ALEXANDRE 01/24/2024 8:08 AM CDT [facility] Tissue STRUCTURE OF RIGHT KNEE REGION / Unknown Non-blood Collection / Unknown 01/17/2024 6:42 PM CDT 01/17/2024 7:17 PM CDT Caleb Garcia MD LAB - MICRO GENE RAL ORDERABLES [facility] Inf. Diseases Diag. Lab [address] [facility], [address] [phone] * Tissue Aerobic Bacterial Culture Routine (01/17/2024 6:41 PM CDT) Culture No Growth ALEXANDRE 01/22/2024 7:24 AM CDT [facility] Tissue STRUCTURE OF RIGHT KNEE REGION / Unknown Non-blood Collection / Unknown 01/17/2024 6:41 PM CDT 01/17/2024 7:21 PM CDT Caleb Garcia MD LAB - MICRO GENE RAL ORDERABLES Performing Organization Address City/[facility] Co de Phone Number [facility] Inf. Diseases Diag. Lab [address] [facility], [address] [phone] * (ABNORMAL) Tissue Aerobic Bacterial Culture Routine (01/17/2024 6:41 PM CDT) Culture 1+ Staphylococcus aureus(A) ALEXANDRE 01/22/2024 7:42 AM CDT [facility] Comment:Susceptibilities don e on previous cultures Tissue STRUCTURE OF RIGHT KNEE REGION / Unknown Non-blood Collection / Unknown 01/17/2024 6:41 PM CDT 01/17/2024 7:20 PM CDT Caleb Garcia MD LAB - MICRO GENE RAL ORDERABLES Performing Organization Address City/[facility]/ZIP Co de Phone Number [facility] Inf. Diseases Diag. Lab [address] [facility], [address] [phone] * (ABNORMAL) Tissue Aerobic Bacterial Culture Routine (01/17/2024 6:41 PM CDT) Culture 1+ Staphylococcus aureus(A) ALEXANDRE 01/22/2024 7:42 AM CDT [facility] Comment:Susceptibilities don e on previous cultures Tissue STRUCTURE OF RIGHT KNEE REGION / Unknown Non-blood Collection / Unknown 01/17/2024 6:41 PM CDT 01/17/2024 7:19 PM CDT Caleb Garcia MD LAB - MICRO GENE RAL ORDERABLES [facility] Inf. Diseases Diag. Lab [address] [facility], Room [address] * (ABNORMAL) Tissue Aerobic Bacterial Culture Routine (01/17/2024 6:41 PM CDT) Culture 1+ Staphylococcus aureus(A) ALEXANDRE 01/22/2024 7:43 AM CDT [facility] Comment:Susceptibilities don e on previous cultures Tissue STRUCTURE OF RIGHT KNEE REGION / Unknown Non-blood Collection / Unknown 01/17/2024 6:41 PM CDT 01/17/2024 7:19 PM CDT Caleb Garcia MD LAB - MICRO GENE RAL ORDERABLES Performing Organization Address City/[facility] Co de Phone Number [facility] Inf. Diseases Diag. Lab [address] [facility], [address] [place] [phone] * Anaerobic Bacterial Culture Routine (01/17/2024 6:41 PM CDT) Culture No anaerobic organisms isolated ALEXANDRE 01/24/2024 8:09 AM CDT [facility] Tissue STRUCTURE OF RIGHT KNEE REGION / Unknown Non-blood Collection / Unknown 01/17/2024 6:41 PM CDT 01/17/2024 7:21 PM CDT Caleb Garcia MD LAB - MICRO GENE RAL ORDERABLES [facility] Inf. Diseases Diag. Lab [address] [facility], [address] * Anaerobic Bacterial Culture Routine (01/17/2024 6:41 PM CDT) Culture No anaerobic organisms isolated ALEXANDRE 01/24/2024 8:09 AM CDT [facility] Tissue STRUCTURE OF RIGHT KNEE REGION / Unknown Non-blood Collection / Unknown 01/17/2024 6:41 PM CDT 01/17/2024 7:21 PM CDT Caleb Garcia MD LAB - MICRO GENE RAL ORDERABLES [facility] Inf. Diseases Diag. Lab [address] [facility], [address] * Anaerobic Bacterial Culture Routine (01/17/2024 6:41 PM CDT) Culture No anaerobic organisms isolated ALEXANDRE 01/24/2024 8:08 AM CDT [facility] Tissue STRUCTURE OF RIGHT KNEE REGION / Unknown Non-blood Collection / Unknown 01/17/2024 6:41 PM CDT 01/17/2024 7:20 PM CDT Caleb Garcia MD LAB - MICRO GENE RAL ORDERABLES [facility] Inf. Diseases Diag. Lab [address] [facility], [address] * Anaerobic Bacterial Culture Routine (01/17/2024 6:41 PM CDT) Culture No anaerobic organisms isolated ALEXANDRE 01/24/2024 8:08 AM CDT [facility] Tissue STRUCTURE OF RIGHT KNEE REGION / Unknown Non-blood Collection / Unknown 01/17/2024 6:41 PM CDT 01/17/2024 7:19 PM CDT Caleb Garcia MD LAB - MICRO GENE RAL ORDERABLES [facility] Inf. Diseases Diag. Lab [address] [facility], [address] [place] [address], [facility] * Glucose by meter (01/17/2024 4:07 PM CDT) GLUCOSE BY METER POCT 97 70 - 99 mg/dL 01/17/2024 4:49 PM CDT LABORATORY POC Blood, Capillary BLOOD SPECIMEN / Unknown 01/17/2024 4:07 PM CDT 01/17/2024 4:49 PM CDT Jason Walker MD LAB - [facility] POCT LABORATORY POC [facility] [address], [address] [place] [address], [facility] * (ABNORMAL) Glucose by meter (01/17/2024 11:24 AM CDT) GLUCOSE BY METER POCT 123(H) 70 - 99 mg/dL 01/17/2024 12:06 PM CDT LABORATORY POC Blood, Capillary BLOOD SPECIMEN / Unknown 01/17/2024 11:24 AM CDT 01/17/2024 12:05 PM CDT Jason GUSTAFSON - JUSTA POCT Performing Organization Address City/[facility]/ZIP Co de Phone Number LABORATORY POC [facility] [address], [address] [place] [address], [facility] * (ABNORMAL) Basic metabolic panel (01/17/2024 8:32 AM CDT) Sodium 135 135 - 145 mmol/L 01/17/2024 9:27 AM CDT LABORATORY Comment:Reference intervals for this test were updated on 06/13/2023 to more accurately reflect our healthy population. There may be differences in the flagging of prior results with similar values performed with this method. Interpretation of those prior results can be made in the context of the updated reference intervals. Potassium 4.5 3.4 - 5.3 mmol/L 01/17/2024 9:27 AM [facility] Chloride 103 98 - 107 mmol/L 01/17/2024 9:27 [facility] Carbon Dioxide (CO2) 18(L) 22 - 29 mmol/L 01/17/2024 9:27 AM [facility] Anion Gap 14 7 - 15 mmol/L 01/17/2024 9:27 AM T LABORATORY Urea Nitrogen 49.3(H) 8.0 - 23.0 mg/dL 01/17/2024 9:27 AM [facility] Creatinine 3.77(H) 0.67 - 1.17 mg/dL 01/17/2024 9:27 AM [facility] GFR Estimate 17(L) >60 mL/min/1. 73m2 01/17/2024 9:27 AM [facility] Calcium 8.3(L) 8.8 - 10.2 mg/dL 01/17/2024 9:27 AM [facility] Glucose 138(H) 70 - 99 mg/dL 01/17/2024 9:27 AM [facility] Blood STRUCTURE OF RIGHT UPPER LIMB / Unknown Venipuncture / Unknown 01/17/2024 8:32 AM CDT 01/17/2024 8:57 AM CDT Jason Walker MD LAB - BLOOD ORDERAB LES LABORATORY [facility] [address], [address] [place] [address] * (ABNORMAL) CBC with platelets (01/17/2024 8:32 AM CDT) WBC Count 11.4(H) 4.0 - 11.0 10e3/uL 01/17/2024 9:02 AM CDT LABORATORY RBC Count 3.28(L) 4.40 - 5.90 10e6/uL 01/17/2024 9:02 AM CDT LABORATORY Hemoglobin 8.9(L) 13.3 - 17.7 g/dL 01/17/2024 9:02 AM CDT LABORATORY Hematocrit 27.0(L) 40.0 - 53.0 % 01/17/2024 9:02 AM CDT LABORATORY MCV 82 78 - 100 fL 01/17/2024 9:02 AM CDT LABORATORY MCH 27.1 26.5 - 33.0 pg 01/17/2024 9:02 AM CDT LABORATORY MCHC 33.0 31.5 - 36.5 g/dL 01/17/2024 9:02 AM CDT LABORATORY RDW 15.6(H) 10.0 - 15.0 % 01/17/2024 9:02 AM CDT LABORATORY Platelet Count 121(L) 150 - 450 10e3/uL 01/17/2024 9:02 AM CDT LABORATORY Blood STRUCTURE OF RIGHT UPPER LIMB / Unknown Venipuncture / Unknown 01/17/2024 8:32 AM CDT 01/17/2024 8:57 AM CDT Jason Walker MD LAB - BLOOD ORDERAB LES [facility] [address], [place] [address], [facility] * (ABNORMAL) CRP inflammation (01/17/2024 8:32 AM CDT) CRP Inflammation 330.61(H) <5.00 mg/L 01/17/2024 9:27 AM CDT LABORATORY Blood STRUCTURE OF RIGHT UPPER LIMB / Unknown Venipuncture / Unknown 01/17/2024 8:32 AM CDT 01/17/2024 8:57 AM CDT Stacy Bland PA-C LAB - BLOOD ORD ERABLES [facility] [address], [address] [place] [address], [facility] * (ABNORMAL) Glucose by meter (01/17/2024 5:47 AM CDT) GLUCOSE BY METER POCT 145(H) 70 - 99 mg/dL 01/17/2024 5:54 AM CDT LABORATORY POC Blood, Capillary BLOOD SPECIMEN / Unknown 01/17/2024 5:47 AM CDT 01/17/2024 5:54 AM CDT Jason Walker MD LAB - BEAKER POCT LABORATORY POC [facility] [address], [address] [place] [address], [facility] * (ABNORMAL) Glucose by meter (01/16/2024 10:15 PM CDT) GLUCOSE BY METER POCT 125(H) 70 - 99 mg/dL 01/16/2024 10:21 PM CDT LABORATORY POC Blood, Capillary BLOOD SPECIMEN / Unknown 01/16/2024 10:15 PM CDT 01/16/2024 10:21 PM CDT Jason Walker MD LAB - BEAKER POCT LABORATORY POC [facility] [address], [address] [place] [address], [facility] * Urine Culture (01/16/2024 4:40 PM CDT) Culture No Growth ALEXANDRE 01/18/2024 7:16 AM CDT [facility] Urine URINE SPECIMEN OBTAINED VIA [facility] / Unknown Non-blood Collection / Unknown 01/16/2024 4:40 PM CDT 01/16/2024 4:56 PM CDT Barby Urbano PA-C LAB - MICRO GE NERAL ORDERABLES [facility] Inf. Diseases Diag. Lab [address] [facility], [address] [place] [address], [place] * (ABNORMAL) UA Macroscopic with reflex to [...] mg/dL 01/16/2024 4:57 PM CDT LABORATORY Specific [place] Urine 1.008 1.003 - 1.035 01/16/2024 4:57 [...] PA-C LAB - URINE OR DERABLES LABORATORY [facility] [address], [address] [place] [address], [facility] * Blood Culture Hand, Left (01/16/2024 2:09 PM CDT) Culture No Growth 01/21/2024 5:31 PM CDT [facility] Blood STRUCTURE OF LEFT HAND / Unknown Venipuncture / Unknown 01/16/2024 2:09 PM CDT 01/16/2024 2:21 PM CDT Narrative [facility] - 01/21/2024 5:31 PM CDT Only an Aerobic Blood Culture Bottle was collected, interpret results with caution. Urbano Johnson MD LAB - MICRO GENERAL ORDERABLES Performing Organization Address City/[facility] Co de Phone Number [facility] Inf. Diseases Diag. Lab [address] [facility], [address] [address], [facility] * Blood Culture Hand, Left (01/16/2024 2:00 PM CDT) Culture No Growth 01/21/2024 5:31 PM CDT [facility] Blood STRUCTURE OF LEFT HAND / Unknown Venipuncture / Unknown 01/16/2024 2:00 PM CDT 01/16/2024 2:21 PM CDT Urbano Johnson MD LAB - MICRO GENERAL ORDERABLES Performing Organization Address City/[facility]/ZIP Co de Phone Number [facility] Inf. Diseases Diag. Lab [address] [facility], [address] [address], [facility] * CT Abdomen Pelvis w/o Contrast (01/16/2024 11:25 AM CDT) Anatomical Region Laterality Modality Abdomen/Pelvis, SUBRAD CT MANUEL DY, UMP CT ABDOMEN PELVIS, RAD CT Computed Tomography Impressions 01/16/2024 1:48 PM CDT IMPRESSION: 1. ??Moderate bilateral hydroureteronephrosis. No obstructing stones. 2. ??Gas and fluid in the prostate gland. Noted history of traumatic catheter placement. This may be secondary to this, or a prostatic abscess. 3. ??Small amount of gas in the bladder should be related to previous catheterization. JASMIN ESPINOSA MD [facility] 01/16/2024 1:[address] ABDOMEN AND PELVIS WITHOUT CONTRAST 01/16/2024 11:25 AM CLINICAL HISTORY: Hydronephrosis. TECHNIQUE: CT scan of the abdomen and pelvis was performed without IV contrast. Multiplanar reformats were obtained. Dose reduction techniques were used. CONTRAST: None. COMPARISON: None. FINDINGS: LOWER CHEST: Small bilateral pleural effusions. HEPATOBILIARY: Normal. PANCREAS: Normal. SPLEEN: Splenomegaly. ADRENAL GLANDS: Normal. KIDNEYS/BLADDER: Moderate bilateral hydronephrosis. No obstructing stones. There is gas in the bladder. Mild diffuse bladder wall thickening. BOWEL: Normal. LYMPH NODES: Normal. VASCULATURE: Mild to moderate atherosclerotic calcification. PELVIC ORGANS: There is gas and fluid in the posterior and right side of the prostate gland. OTHER: None. MUSCULOSKELETAL: Normal. Procedure Note Jasmin Espinosa MD - 01/16/2024 CT ABDOMEN AND PELVIS WITHOUT CONTRAST 01/16/2024 11:25 AM CLINICAL HISTORY: Hydronephrosis. TECHNIQUE: CT scan of the abdomen and pelvis was performed without IV contrast. Multiplanar reformats were obtained. Dose reduction techniques were used. CONTRAST: None. COMPARISON: None. FINDINGS: LOWER CHEST: Small bilateral pleural effusions. HEPATOBILIARY: Normal. PANCREAS: Normal. SPLEEN: Splenomegaly. ADRENAL GLANDS: Normal. KIDNEYS/BLADDER: Moderate bilateral hydronephrosis. No obstructing stones. There is gas in the bladder. Mild diffuse bladder wall thickening. BOWEL: Normal. LYMPH NODES: Normal. VASCULATURE: Mild to moderate atherosclerotic calcification. PELVIC ORGANS: There is gas and fluid in the posterior and right side of the prostate gland. OTHER: None. MUSCULOSKELETAL: Normal. IMPRESSION: 1. Moderate bilateral hydroureteronephrosis. No obstructing stones. 2. Gas and fluid in the prostate gland. Noted history of traumatic catheter placement. This may be secondary to this, or a prostatic abscess. 3. Small amount of gas in the bladder should be related to previous catheterization. JASMIN ESPINOSA MD Barby Urbano PA-C IMG CT ORDERAB LES * MRSA MSSA PCR, Nasal Swab (01/16/2024 10:37 AM CDT) MRSA Target DNA Negative Negative 01/16/2024 2:32 PM CDT [facility] SA Target DNA Positive 01/16/2024 2:32 PM CDT [facility] Swab BOTH ANTERIOR NARES / Unknown Non-blood Collection / Unknown 01/16/2024 10:37 AM CDT 01/16/2024 11:10 AM CDT Narrative [facility] - 01/16/2024 2:32 PM CDT [employer]?? Xpert SA Nasal Complete assay performed in the [employer]?? Dx System is a qualitative in vitro [...] MICRO GEN ERAL ORDERABLES [facility] Inf. Diseases Diag. Lab [address] [facility], [address] [place] [address] * Adult Type and Screen (01/16/2024 8:45 AM CDT) ABO/RH(D) A POS 01/16/2024 8:19 AM CDT BLOOD BANK Antibody Screen Negative Negative 01/16/2024 8:19 AM CDT BLOOD BANK SPECIMEN EXPIRATION DATE [id number] 01/16/2024 8:19 AM CDT BLOOD BANK Blood STRUCTURE OF RIGHT UPPER LIMB / Unknown Venipuncture / Unknown 01/16/2024 8:45 AM CDT 01/16/2024 8:57 AM CDT Stacy Bland PA-C LAB - BLOOD BAN K TEST ORDER Performing Organization Address [facility]/ZIP Co de Phone Number BLOOD BANK [address] [place] [address], [facility] * (ABNORMAL) Erythrocyte sedimentation rate auto (01/16/2024 8:45 AM CDT) Erythrocyte Sedimentation Rate 79(H) 0 - 20 mm/hr 01/16/2024 9:10 AM CDT LABORATORY Blood STRUCTURE OF RIGHT UPPER LIMB / Unknown Venipuncture / Unknown 01/16/2024 8:45 AM CDT 01/16/2024 8:57 AM CDT Stacy Bland PA-C LAB - BLOOD ORD ERABLES Performing Organization Address [facility] Co de Phone Number LABORATORY [facility] [address], [address] [place] [address], [facility] * (ABNORMAL) CRP inflammation (01/16/2024 8:45 AM CDT) CRP Inflammation 302.98(H) <5.00 mg/L 01/16/2024 9:24 AM CDT LABORATORY Blood STRUCTURE OF RIGHT UPPER LIMB / Unknown Venipuncture / Unknown 01/16/2024 8:45 AM CDT 01/16/2024 8:57 AM CDT Stacy Bland PA-C LAB - BLOOD ORD ERABLES Performing Organization Address City/[facility]/ZIP Co de Phone Number LABORATORY [facility] [address], [address] [place] [address], [facility] * (ABNORMAL) CBC with platelets (01/16/2024 8:45 AM CDT) WBC Count 12.0(H) 4.0 - 11.0 10e3/uL 01/16/2024 9:01 AM CDT LABORATORY RBC Count 3.34(L) 4.40 - 5.90 10e6/uL 01/16/2024 9:01 AM CDT LABORATORY Hemoglobin 9.2(L) 13.3 - 17.7 g/dL 01/16/2024 9:01 AM CDT LABORATORY Hematocrit 27.9(L) 40.0 - 53.0 % 01/16/2024 9:01 AM CDT LABORATORY MCV 84 78 - 100 fL 01/16/2024 9:01 AM CDT LABORATORY MCH 27.5 26.5 - 33.0 pg 01/16/2024 9:01 AM CDT LABORATORY MCHC 33.0 31.5 - 36.5 g/dL 01/16/2024 9:01 AM CDT LABORATORY RDW 15.8(H) 10.0 - 15.0 % 01/16/2024 9:01 AM CDT LABORATORY Platelet Count 97(L) 150 - 450 10e3/uL 01/16/2024 9:01 AM CDT LABORATORY Blood STRUCTURE OF RIGHT UPPER LIMB / Unknown Venipuncture / Unknown 01/16/2024 8:45 AM CDT 01/16/2024 8:57 AM CDT Karlie Rosenthal MD LAB - BLOOD ORDERABL ES LABORATORY [facility] [address], [address] [place] [id number] * (ABNORMAL) Comprehensive metabolic panel (01/16/2024 8:45 AM CDT) [facility] Sodium 132(L) 135 - 145 mmol/L 01/16/2024 9:24 AM CDT LABORATORY Comment:Reference intervals for this test were updated on 06/13/2023 to more accurately reflect our healthy population. There may be differences in the flagging of prior results with similar values performed with this method. Interpretation of those prior results can be made in the context of the updated reference intervals. Potassium 4.1 3.4 - 5.3 mmol/L 01/16/2024 9:24 AM [facility] Carbon Dioxide (CO2) 19(L) 22 - 29 mmol/L 01/16/2024 9:24 AM [facility] Anion Gap 14 7 - 15 mmol/L 01/16/2024 9:24 AM [facility] Urea Nitrogen 48.1(H) 8.0 - 23.0 mg/dL 01/16/2024 9:24 AM [facility] Creatinine 4.49(H) 0.67 - 1.17 mg/dL 01/16/2024 9:24 AM [facility] GFR Estimate 14(L) >60 mL/min/1. 73m2 01/16/2024 9:24 AM [facility] Calcium 8.0(L) 8.8 - 10.2 mg/dL 01/16/2024 9:24 AM [facility] Chloride 99 98 - 107 mmol/L 01/16/2024 9:24 AM [facility] Glucose 119(H) 70 - 99 mg/dL 01/16/2024 9:24 AM [facility] Alkaline Phosphatase 122 40 - 150 U/L 01/16/2024 9:24 AM [facility] Comment:Reference intervals for this test were updated on 08/01/2023 to more accurately reflect our healthy population. There may be differences in the flagging of prior results with similar values performed with this method. Interpretation of those prior results can be made in the context of the updated reference intervals. AST 19 0 - 45 U/L 01/16/2024 9:24 AM [facility] Comment:Reference intervals for this test were updated on 02/27/2023 to more accurately reflect our healthy population. There may be differences in the flagging of prior results with similar values performed with this method. Interpretation of those prior results can be made in the context of the updated reference intervals. ALT 16 0 - 70 U/L 01/16/2024 9:24 AM [facility] Comment:Reference intervals for this test were updated on 02/27/2023 to more accurately reflect our healthy population. There may be differences in the flagging of prior results with similar values performed with this method. Interpretation of those prior results can be made in the context of the updated reference intervals. Protein Total 6.4 6.4 - 8.3 g/dL 01/16/2024 9:24 AM [facility] Albumin 2.5(L) 3.5 - 5.2 g/dL 01/16/2024 9:24 AM [facility] Bilirubin Total 1.4(H) <=1.2 mg/dL 01/16/2024 9:24 AM [facility] Blood STRUCTURE OF RIGHT UPPER LIMB / Unknown Venipuncture / Unknown 01/16/2024 8:45 AM CDT 01/16/2024 8:57 AM CDT Karlie Rosenthal MD LAB - BLOOD ORDERABL ES LABORATORY [facility] [address], [address] [place] [id number] * EKG 12-lead, tracing only (01/16/2024 7:10 AM CDT) Systolic Blood Pressure mmHg RADIOLOGY RESULTS Diastolic Blood Pressure mmHg RADIOLOGY RESULTS Ventricular Rate 92 BPM RAD IOLOGY RESULTS Atrial Rate 92 BPM RADIOLOG Y RESULTS TN Interval 164 ms RADIOLOG Y RESULTS QRS Duration 112 ms RADIOLO GY RESULTS QT 388 ms RADIOLOGY RESULTS QTc 479 ms RADIOLOGY RESULTS P [place] 72 degrees RADIOLOGY RESULTS R AXIS 51 degrees RADIOLOGY RESULTS T [place] 58 degrees RADIOLOGY RESULTS Interpretation ECG Sinus rhythm Normal ECG No previous ECGs available Confirmed by MD WILEY MICHAEL ([id number]) on 01/16/2024 4:56:17 PM RADIOLOGY RESULTS 01/16/2024 7:10 AM CDT 01/16/2024 4:56 PM CDT Karlie Rosenthal MD ECG ORDERABLES RADIOLOGY RESULTS documented in this encounter Visit Diagnoses Diagnosis 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 Pyogenic arthritis, lower leg Infection of total right knee replacement, initial encounter (H24) Septic joint (H) Pyogenic arthritis, site unspecified documented in this encounter Administered Medications Inactive Administered Medications - up to 3 most recent administrations Medication Order MAR Action Action Date Dose Rate Site acetaminophen (TYLENOL) tablet 650 mg 650 mg, Oral, EVERY 4 HOURS PRN, other, For optimal non-opioid multimodal pain management to improve pain control., Starting on Mon01/20/24 at 0000, May give first dose 4 hours after last scheduled dose of acetaminophen (TYLENOL). Maximum acetaminophen dose from all sources = 75 mg/kg/day not to exceed 4 grams/day. $Given 01/22/2024 9:10 AM CDT 650 mg $Given 01/21/2024 8:56 PM CDT 650 mg acetaminophen (TYLENOL) tablet 975 mg 975 mg, Oral, EVERY 8 HOURS, First dose on Mon01/17/24 at 2200, For 3 days, Administer for multimodal surgical pain management. Maximum acetaminophen dose from all sources = 75 mg/kg/day not to exceed 4 grams/day. $Given 01/20/2024 1:48 PM CDT 97 5 mg $Given 01/20/2024 5:18 AM CDT 975 mg $Given 01/19/2024 9:39 PM CDT 975 mg aspirin (ASA) EC tablet 325 mg 325 mg, Oral, DAILY, First dose on Mon01/18/24 at 0900, Indications: VTE Prophylaxis, DO NOT CRUSH. DO NOT CRUSH. $Given 01/23/2024 8:32 AM CDT 325 mg $Given 01/22/2024 8:10 AM CDT 325 mg $Given 01/21/2024 9:23 AM CDT 325 mg atorvastatin (LIPITOR) tablet 10 mg 10 mg, Oral, DAILY, First dose on Mon01/16/24 at 0900 $Given 01/23/2024 8:32 AM CDT 10 mg $Given 01/22/2024 8:10 AM CDT 10 mg $Given 01/21/2024 9:23 AM CDT 10 mg benzocaine-menthol (CHLORASEPTIC) 6-10 MG lozenge 1 lozenge 1 lozenge, Buccal, EVERY 1 HOUR PRN, sore throat, sore throat without fever, Starting on Mon01/17/24 at 2116 bisacodyl (DULCOLAX) suppository 10 mg 10 mg, Rectal, DAILY PRN, constipation, Use if Magnesium hydroxide (MILK of MAGNESIA) not effective after 24 hours. May discontinue if patient having bowel movement., Starting on Mon01/17/24 at 2116, Hold for loose stools. ceFAZolin (ANCEF) 2 g in 100 mL D5W intermittent infusion Routine, 2 g, Intravenous, EVERY 12 HOURS, First dose on Mon01/16/24 at 1700, Dose adjusted per renal dosing policy. Estimated CrCl = 11-34 mL/min., Indications: Bone and/or Joint Infection $New Bag 01/19/2024 4:36 AM CDT 2 g 200 mL/hr $New Bag 01/18/2024 4:03 PM CDT 2 g 200 mL/hr $New Bag 01/18/2024 4:59 AM CDT 2 g 200 mL/hr ceFAZolin (ANCEF) 2 g in 100 mL D5W intermittent infusion Routine, 2 g, Intravenous, EVERY 8 HOURS, First dose (after last modification) on Mon01/19/24 at 1300, Dose adjusted per renal dosing policy. Estimated CrCl = 35-54 mL/min., Indications: Bone and/or Joint Infection $New Bag 01/23/2024 4:11 AM CDT 2 g 200 mL/hr $New 01/22/2024 8:42 PM CDT 2 g 200 mL/hr $New Bag 01/22/2024 12:22 PM CDT 2 g 200 mL/hr DULoxetine (CYMBALTA) DR capsule 120 mg 120 mg, Oral, DAILY, First dose on Mon01/16/24 at 0900 $Given 01/23/2024 8:31 AM CDT 120 mg $Given 01/22/2024 8:11 AM CDT 120 mg $Given 01/21/2024 9:23 AM CDT 120 mg famotidine (PEPCID) injection 20 mg 20 mg, Intravenous, Administer over 2 Minutes, AT BEDTIME, First dose on Mon01/17/24 at 2200, If unable to take oral Dose adjusted per renal dosing policy. Estimated CrCl = 30-60 mL/min. For ordered IV doses 1-20 mg, give IV Push diluted with 5-10 mL NS over a minimum of 2 minutes. famotidine (PEPCID) tablet 10 mg 10 mg, Oral, 2 TIMES DAILY, First dose on Mon01/15/24 at 2300 $Given 01/16/2024 8:18 AM CDT 10 mg $Given 01/15/2024 11:52 PM CDT 10 mg famotidine (PEPCID) tablet 10 mg 10 mg, Oral, DAILY, First dose (after last modification) on Mon01/17/24 at 0900, Dose adjusted per renal dosing policy. Estimated CrCl = 15-30 mL/min. $Given 01/17/2024 8:43 AM CDT 10 mg famotidine (PEPCID) tablet 20 mg 20 mg, Oral, AT BEDTIME, First dose on Mon01/17/24 at 2200, Dose adjusted per renal dosing policy. Estimated CrCl = 30-60 mL/min. $Given 01/22/2024 10:05 PM CDT 20 mg $Given 01/21/2024 9:35 PM CDT 20 mg $Given 01/20/2024 9:09 PM CDT 20 mg furosemide (LASIX) injection 40 mg 40 mg, Intravenous, 2 TIMES DAILY, Administer over 1-3 Minutes, First dose on Mon01/21/24 at 0900, For 2 doses $Given 01/21/2024 8:35 PM CDT 40 mg $Given 01/21/2024 9:23 AM CDT 40 mg hydrALAZINE (APRESOLINE) injection 10 mg 10 mg, Intravenous, EVERY 4 HOURS PRN, high blood pressure, for systolic BP greater than 180 mmHg, Administer over 1 Minutes, Starting on Mon01/15/24 at 2147 hydrALAZINE (APRESOLINE) tablet 10 mg 10 mg, Oral, EVERY 4 HOURS PRN, high blood pressure, for systolic BP greater than 180 mmHg, Starting on Mon01/15/24 at 2147 HYDROmorphone (DILAUDID) injection 0.1 mg 0.1 mg, Intravenous, EVERY 2 HOURS PRN, moderate pain, Starting on Mon01/17/24 at 2117, IF patient unable to take oral pain medication or pain not controlled with oral analgesics. Hold IV PRN opioid dose for analgesic side effects. Notify provider to assess for uncontrolled pain or analgesic side effects. HYDROmorphone (DILAUDID) injection 0.2 mg 0.2 mg, Intravenous, EVERY 2 HOURS PRN, severe pain, Starting on Mon01/17/24 at 2117, IF patient unable to take oral pain medication or pain not controlled with oral analgesics. Hold IV PRN opioid dose for analgesic side effects. Notify provider to assess for uncontrolled pain or analgesic side effects. $Given 01/19/2024 2:53 PM CDT 0.2 mg $Given 01/19/2024 10:29 AM CDT 0.2 mg hydrOXYzine HCl (ATARAX) tablet 10 mg 10 mg, Oral, EVERY 6 HOURS PRN, other, adjuvant pain, Starting on Mon01/17/24 at 2117 $Given 01/19/2024 9:3 7 AM CDT 10 mg $Given 01/18/2024 1:28 PM CDT 10 mg lactated ringers infusion at 100 mL/hr, Intravenous, CONTINUOUS, Pre-procedure, Starting on Mon01/17/24 at 1630, Until Mon01/17/24 at 1919 $New Bag 01/17/2024 6:31 PM CDT $New Bag 01/17/2024 4:14 PM CDT 100 mL/hr lactated ringers infusion at 50 mL/hr, Intravenous, CONTINUOUS, IF overnight stay, continue IV fluids until 0400 POD #1, then may saline lock if tolerating oral fluids. IF Day of Surgery Discharge, continue IV Fluids until one hour before discharge., Starting on Mon01/17/24 at 2130, Until Mon01/18/24 at 1526 $New Bag 01/17/2024 10:50 PM CDT 50 mL/hr lactated ringers infusion at 75 mL/hr, Intravenous, CONTINUOUS, Starting on Mon01/18/24 at 1530, Until Mon01/19/24 at 1931 $New Bag 01/19/2024 4:48 AM CDT 75 mL/hr $New Bag 01/18/2024 3:55 PM CDT 75 mL/hr lidocaine (XYLOCAINE) 2 % external gel Urethral, ONCE PRN, mild pain, other, crandall insertion, Starting on Mon01/15/24 at 2326, For 1 dose lidocaine (XYLOCAINE) 2 % external gel Urethral, EVERY 4 HOURS PRN, mild pain, Starting on Tu01/16/24 at 1608 lidocaine 1 % 0.1-5 mL 0.1-5 mL, Other, EVERY 1 HOUR PRN, local anesthetic for pain management with PICC insertion, Starting on Mon01/19/24 at 1212, For 72 hours, Do NOT give if patient has a history of allergy to any local anesthetic or any eliud product. MAX dose 5 mL subcutaneous OR intradermal in divided doses as needed for PICC insertion. Do NOT use both lidocaine intradermal/subcutaneous injection and the lidocaine cream on the same site. $Given 01/19/2024 1:48 PM CDT 2 mLs linezolid (ZYVOX) infusion 600 mg Routine, 600 mg, Intravenous, EVERY 12 HOURS, First dose on Mon01/15/24 at 2200, Indications: septic joint , vancomycin not used due to OMAR $New Bag 01/16/2024 11:47 AM CDT 600 mg $New Bag 01/15/2024 11:54 PM CDT 600 mg 300 mL/hr lisinopril (ZESTRIL) tablet 20 mg 20 mg, Oral, DAILY, First dose on Mon01/21/24 at 0900 $Given 01/23/2024 8:31 AM CDT 20 mg $Given 01/22/2024 8:11 AM CDT 20 mg $Given 01/21/2024 9:23 AM CDT 20 mg magnesium hydroxide (MILK OF MAGNESIA) suspension 30 mL 30 mL, Oral, DAILY PRN, constipation, Use if preventive measures (senna-docusate, docusate, and polyethylene glycol) are not effective., Starting on Mon01/17/24 at 2116, Shake well. Hold for loose stools. mirtazapine (REMERON) tablet 15 mg 15 mg, Oral, AT BEDTIME, First dose on Mon01/15/24 at 2200 $Given 01/22/2024 10:05 PM CDT 15 mg $Given 01/21/2024 9:35 PM CDT 15 mg $Given 01/20/2024 9:09 PM CDT 15 mg naloxone (NARCAN) injection 0.2 mg 0.2 mg, Intravenous, EVERY 2 MIN PRN, opioid reversal, Starting on Mon01/15/24 at 2156, Administer intravenous route when available and notify provider when administered. For unintended sedation or respiratory depression if all of the below criteria are met: ~ respiratory rate LESS than or EQUAL to 8. ~SaO2 less than 92% and or/end-tidal CO2 is greater than 50. ~ the patient is receiving an opioid, has unintended sedations assessed as RASS (-3), and is currently not on mechanical ventilation. RASS scale moderate (-3) is movement or eye opening to voice but no eye contact. Patient Monitoring Once the patient has demonstrated a response to the naloxone, continue to monitor respiratory rate, depth, oxygen saturation and end-tidal CO2 (if available) every 15 minutes x 2, then every 30 minutes x 2, then every 1 hour x 1 after each naloxone dose. Consider transfer to ICU if patient respiratory parameters have not improved after 4 naloxone doses. naloxone (NARCAN) injection 0.2 mg 0.2 mg, Intramuscular, EVERY 2 MIN PRN, opioid reversal, Starting on Mon01/15/24 at 2156, Administer intramuscular if an intravenous route is not available and notify provider when administered. For unintended sedation or respiratory depression if all of the below criteria are met: ~ respiratory rate LESS than or EQUAL to 8. ~SaO2 less than 92% and or/end-tidal CO2 is greater than 50. ~ the patient is receiving an opioid, has unintended sedations assessed as RASS (-3), and is currently not on mechanical ventilation. RASS scale moderate (-3) is movement or eye opening to voice but no eye contact. Patient Monitoring Once the patient has demonstrated a response to the naloxone, continue to monitor respiratory rate, depth, oxygen saturation and end-tidal CO2 (if available) every 15 minutes x 2, then every 30 minutes x 2, then every 1 hour x 1 after each naloxone dose. Consider transfer to ICU if patient respiratory parameters have not improved after 4 naloxone doses. naloxone (NARCAN) injection 0.4 mg 0.4 mg, Intravenous, EVERY 2 MIN PRN, opioid reversal, Starting on Mon01/15/24 at 2156, Administer intravenous route when available and notify provider when administered. For unintended sedation or respiratory depression if all of the below criteria are met: ~ respiratory rate LESS than or EQUAL to 8. ~ SaO2 less than 92% and or/end-tidal CO2 is greater than 50. ~ the patient is receiving an opioid, has unintended sedation assessed as RASS (-4) or (-5) and patient is currently not on mechanical ventilation. RASS scale (-4) is deep sedation with no response to voice but movement or eye opening to physical stimulation. RASS scale (-5) is unarousable. Patient Monitoring Once the patient has demonstrated a response to the naloxone, continue to monitor respiratory rate, depth, oxygen saturation and end-tidal CO2 (if available) every 15 minutes x 2, then every 30 minutes x 2, then every 1 hour x 1 after each naloxone dose. Consider transfer to ICU if patient respiratory parameters have not improved after 4 naloxone doses. naloxone (NARCAN) injection 0.4 mg 0.4 mg, Intramuscular, EVERY 2 MIN PRN, opioid reversal, Starting on Mon01/15/24 at 2156, Administer intramuscular if an intravenous route is not available and notify provider when administered. For unintended sedation or respiratory depression if all of the below criteria are met: ~ respiratory rate LESS than or EQUAL to 8. ~ SaO2 less than 92% and or/end-tidal CO2 is greater than 50. ~ the patient is receiving an opioid, has unintended sedation assessed as RASS (-4) or (-5) and patient is currently not on mechanical ventilation. RASS scale (-4) is deep sedation with no response to voice but movement or eye opening to physical stimulation. RASS scale (-5) is unarousable. Patient Monitoring Once the patient has demonstrated a response to the naloxone, continue to monitor respiratory rate, depth, oxygen saturation and end-tidal CO2 (if available) every 15 minutes x 2, then every 30 minutes x 2, then every 1 hour x 1 after each naloxone dose. Consider transfer to ICU if patient respiratory parameters have not improved after 4 naloxone doses. ondansetron (ZOFRAN ODT) ODT tab 4 mg 4 mg, Oral, EVERY 6 HOURS PRN, nausea, vomiting, Starting on Mon01/17/24 at 7, This is Step 1 of nausea and vomiting management. If nausea not resolved in 15 minutes, go to Step 2 prochlorperazine (COMPAZINE). Do not push through foil backing. Peel back foil and gently remove. Place on tongue immediately. Administration with liquid unnecessary With dry hands, peel back foil backing and gently remove tablet. Do not push oral disintegrating tablet through foil backing. Administer immediately on tongue and oral disintegrating tablet dissolves in seconds, then swallow with saliva. Liquid not required. $Given 01/22/2024 9:28 PM CDT 4 mg ondansetron (ZOFRAN) injection 4 mg 4 mg, Intravenous, EVERY 6 HOURS PRN, nausea, vomiting, Administer over 2-5 Minutes, Starting on Mon01/17/24 at 2117, This is Step 1 of nausea and vomiting management. If nausea not resolved in 15 minutes, go to Step 2 prochlorperazine (COMPAZINE). Irritant. oxyCODONE (ROXICODONE) tablet 10 mg 10 mg, Oral, EVERY 4 HOURS PRN, severe pain, IF pain not managed with non-pharmacological and non-opioid interventions, Starting on 01/15/24 at 2147, May use concomitant with non-opioid analgesics. $Given 01/17/2024 2:14 PM CDT 10 mg $Given 01/17/2024 8:42 AM CDT 10 mg $Given 01/16/2024 4:21 PM CDT 10 mg oxyCODONE (ROXICODONE) tablet 10 mg 10 mg, Oral, EVERY 4 HOURS PRN, severe pain, Starting on 01/20/24 at 1459, Hold oral PRN dose for analgesic side effects. Notify provider to assess for uncontrolled pain or analgesic side effects. Hold while on IV CAD DRAFTSMAN or with regular IV opioid dosing. $Given 01/23/2024 8:31 AM CDT 10 mg $Given 01/22/2024 8:57 PM CDT 10 mg $Given 01/21/2024 2:00 PM CDT 10 mg oxyCODONE (ROXICODONE) tablet 5 mg 5 mg, Oral, EVERY 4 HOURS PRN, severe pain, Starting on Mon01/17/24 at 2117, Hold oral PRN dose for analgesic side effects. Notify provider to assess for uncontrolled pain or analgesic side effects. Hold while on IV CAD DRAFTSMAN or with regular IV opioid dosing. $Given 01/20/2024 10:12 AM CDT 5 mg $Given 01/19/2024 6:51 PM CDT 5 mg $Given 01/19/2024 1:57 PM CDT 5 mg oxyCODONE (ROXICODONE) tablet 5 mg 5 mg, Oral, EVERY 4 HOURS PRN, moderate pain, Starting on 01/20/24 at 1459, Hold oral PRN dose for analgesic side effects. Notify provider to assess for uncontrolled pain or analgesic side effects. Hold while on IV CAD DRAFTSMAN or with regular IV opioid dosing. $Given 01/23/2024 4:17 AM CDT 5 mg $Given 01/22/2024 4:24 PM CDT 5 mg $Given 01/22/2024 9:10 AM CDT 5 mg oxyCODONE IR (ROXICODONE) half-tab 2.5 mg 2.5 mg, Oral, EVERY 4 HOURS PRN, moderate pain, Starting on Mon01/17/24 at 2117, Hold oral PRN dose for analgesic side effects. Notify provider to assess for uncontrolled pain or analgesic side effects. Hold while on IV CAD DRAFTSMAN or with regular IV opioid dosing. $Given 01/19/2024 10:29 AM CDT 2.5 mg $Given 01/19/2024 9:35 AM CDT 2.5 mg polyethylene glycol (MIRALAX) Packet 17 g 17 g, Oral, DAILY, First dose on [place] 01/18/24 at 0900, To prevent constipation. Mixed prescribed dose in 8 ounces of water, juice or soda. Administer daily starting at 0900 on POD 1. Hold for loose stools. 1 Packet = 17 grams. Mix each gram with at least 1/2 ounce (15 mL) of water - 8 ounces for 17 g dose, 4 ounces for 8.5 g dose, 2 ounces for 4 g dose. Follow with the same volume of water. Hold for loose stools unless being administered as part of a bowel prep regimen or bowel clean out. $Given 01/18/2024 9:05 AM CDT 17 g potassium chloride demetri ER (KLOR-CON M20) CR tablet 20 mEq 20 mEq, Oral, ONCE, On Mon01/21/24 at 0900, For 1 dose, DO NOT CRUSH $Given 01/21/2024 9:29 AM CDT 20 mEq potassium chloride demetri ER (KLOR-CON M20) CR tablet 20 mEq 20 mEq, Oral, ONCE, On Mon01/22/24 at 0330, For 1 dose, Potassium level 3.5-3.8 mmol/L Ordered from the Potassium replacement order set. DO NOT CRUSH, Potassium Replacement: Potassium level 3.5-3.8 mmol/L, Recheck: Potassium level next AM $Given 01/22/2024 3:20 AM CDT 20 mEq potassium chloride demetri ER (KLOR-CON M20) CR tablet 40 mEq 40 mEq, Oral, ONCE, On Mon01/21/24 at 2200, For 1 dose, Potassium level 3.1 - 3.4 mmol/L Ordered from the Potassium replacement order set. DO NOT CRUSH, Potassium Replacement: Potassium level 3.1-3.4 mmol/L, Recheck: Potassium level 4 hours AFTER last oral dose $Given 01/21/2024 10:10 PM CDT 40 mEq pregabalin (LYRICA) capsule 75 mg 75 mg, Oral, 2 TIMES DAILY, First dose on Mon01/16/24 at 0900 $Given 01/23/2024 8:31 AM CDT 75 mg $Given 01/22/2024 8:40 PM CDT 75 mg $Given 01/22/2024 8:10 AM CDT 75 mg prochlorperazine (COMPAZINE) injection 5 mg 5 mg, Intravenous, EVERY 6 HOURS PRN, nausea, vomiting, Administer over 1-2 Minutes, Starting on Mon01/17/24 at 2117, This is Step 2 of nausea and vomiting management. If nausea not resolved in 15-30 minutes, Notify provider. prochlorperazine (COMPAZINE) tablet 5 mg 5 mg, Oral, EVERY 6 HOURS PRN, nausea, vomiting, Starting on Mon01/17/24 at 2117, This is Step 2 of nausea and vomiting management. If nausea not resolved in 15-30 minutes, Notify provider. senna-docusate (SENOKOT-S/PERICOLACE) 8.6-50 MG per tablet 1 tablet 1 tablet, Oral, 2 TIMES DAILY PRN, constipation, Starting on Mon01/15/24 at 2145, If no bowel movement in 24 hours, increase to 2 tablets by mouth. IF more than 1 constipation PRN medication is ordered, administer step-metcalf as indicated, moving to the next step ONLY if prior step ineffective. Step 1: senna-docusate (SENOKOT-S; PERICOLACE) OR bisacodyl (DULCOLAX) EC tablet Step 2: polyethylene glycol (MIRALAX/GLYCOLAX) Step 3: bisacodyl (DULCOLAX) suppository Step 4: enema Hold for loose stools. senna-docusate (SENOKOT-S/PERICOLACE) 8.6-50 MG per tablet 1 tablet 1 tablet, Oral, 2 TIMES DAILY, First dose on Mon01/15/24 at 2200, If no bowel movement in 24 hours, increase to 2 tablets by mouth. Hold for loose stools. $Given 01/18/2024 9:04 AM CDT 1 tablet $Given 01/17/2024 8:42 AM CDT 1 tablet $Given 01/16/2024 9:44 PM CDT 1 tablet senna-docusate (SENOKOT-S/PERICOLACE) 8.6-50 MG per tablet 2 tablet 2 tablet, Oral, 2 TIMES DAILY PRN, constipation, Starting on Mon01/15/24 at 2145, IF more than 1 constipation PRN medication is ordered, administer step-metcalf as indicated, moving to the next step ONLY if prior step ineffective. Step 1: senna-docusate (SENOKOT-S; PERICOLACE) OR bisacodyl (DULCOLAX) EC tablet Step 2: polyethylene glycol (MIRALAX/GLYCOLAX) Step 3: bisacodyl (DULCOLAX) suppository Step 4: enema Hold for loose stools. senna-docusate (SENOKOT-S/PERICOLACE) 8.6-50 MG per tablet 2 tablet 2 tablet, Oral, 2 TIMES DAILY, First dose on Mon01/15/24 at 2200, Hold for loose stools. $Given 01/18/2024 9:25 PM CDT 2 tablets sodium chloride (PF) 0.9% PF flush 10-20 mL 10-20 mL, Intracatheter, EVERY 1 MIN PRN, line flush, Starting on Mon01/19/24 at 1212, Sodium chloride 0.9% 10 mL flush pre and post IV medications Sodium chloride 0.9% 20 mL flush pre and post blood draws or blood administration sodium chloride (PF) 0.9% PF flush 10-40 mL 10-40 mL, Intracatheter, ONCE PRN, line flush, to flush each lumen with line placement, Starting on Mon01/19/24 at 1212, For 1 dose, MAX: 10 mL per lumen. May repeat x 1 $Given 01/19/2024 1:48 PM CDT 30 mLs sodium chloride (PF) 0.9% PF flush 10-40 mL 10-40 mL, Intracatheter, EVERY 8 HOURS, First dose on Mon01/19/24 at 1230, Max dose: 10 mL for each lumen Administration instructions IF NOT DONE MORE FREQUENTLY $Given 01/23/2024 4:14 AM CDT 10 mLs $Given 01/22/2024 8:44 PM CDT 12 mLs $Given 01/22/2024 12:30 PM CDT 10 mLs sodium chloride (PF) 0.9% PF flush 3 mL 3 mL, Intracatheter, EVERY 8 HOURS, First dose on Mon01/15/24 at 2200, to lock peripheral IV dormant line $Given 01/22/2024 4:20 PM CDT 3 mLs $Given 01/21/2024 9:31 PM CDT 3 mLs $Given 01/21/2024 5:14 AM CDT 3 mLs sodium chloride (PF) 0.9% PF flush 3 mL 3 mL, Intracatheter, EVERY 8 HOURS, First dose on Mon01/17/24 at 2130, to lock peripheral IV dormant line $Given 01/23/2024 5:28 AM CDT 3 mLs $Given 01/22/2024 9:29 PM CDT 3 mLs $Given 01/22/2024 12:30 PM CDT 3 mLs sodium chloride (PF) 0.9% PF flush 3 mL 3 mL, Intracatheter, EVERY 1 MIN PRN, line flush, other, to ensure patency or to lock dormant line, Starting on Mon01/17/24 at 2116 sodium chloride 0.9 % infusion at 125 mL/hr, Intravenous, CONTINUOUS, Starting on Mon01/15/24 at 2130, Until [place] 01/18/24 at 1526 $New Bag 01/17/2024 9:15 PM CDT 125 mL/hr Rate/Dose Change 01/17/2024 11:34 AM CDT 125 mL /hr Rate/Dose Verify 01/17/2024 8:00 AM CDT 100 mL/ hr tamsulosin (FLOMAX) capsule 0.8 mg 0.8 mg, Oral, DAILY, First dose on Mon01/16/24 at 0900, Administer 30 minutes after the same meal each day. Capsules should be swallowed whole; do not crush chew or open. $Given 01/23/2024 8:31 AM CDT 0.8 mg $Given 01/22/2024 8:10 AM CDT 0.8 mg $Given 01/21/2024 9:23 AM CDT 0.8 mg documented in this encounter Active and Recently Administered Medications Times are shown in CDT. Scheduled Medication Order 01/21/2024 01/22/2024 01/23/2024 aspirin (ASA) EC tablet 325 mg 325 mg, Oral, DAILY, First dose on Mon01/18/24 at 0900, Indications: VTE Prophylaxis, DO NOT CRUSH. DO NOT CRUSH. 0923 ($Given - Provider: Jeremiah Mendoza RN) 0810 ($Given - Provider: Milli Jackson, RN) 0832 ($Given - Provider: Leatha Morrissey, RN) atorvastatin (LIPITOR) tablet 10 mg 10 mg, Oral, DAILY, First dose on Mon01/16/24 at 0900 0923 ($Given - Provider: Jeremiah Mendoza RN) 0810 ($Given - Provider: Milli Jackson, YARED) 0832 ($Given - Provider: Leatha Morrissey, RN) ceFAZolin (ANCEF) 2 g in 100 mL D5W intermittent infusion Routine, 2 g, Intravenous, EVERY 8 HOURS, First dose (after last modification) on Mon01/19/24 at 1300, Dose adjusted per renal dosing policy. Estimated CrCl = 35-54 mL/min., Indications: Bone and/or Joint Infection 0509 ($New Bag - Provider: Miguel Shah RN)1400 ($New Bag - Provider: Jeremiah Mendoza RN)2120 ($New Bag - Provider: Sydni Mendez, YARED) 0530 ($New Bag - Provider: Sydni Menedz, YARED)1222 ($New Bag - Provider: Milli Jackson, YARED)2042 ($New Bag - Provider: Amy Barrera RN) 0411 ($New Bag - Provider: Carlos Gómez RN)1300 (Canceled Entry - Provider: Orders Generic Provider - Comment: Automatically canceled at discontinue of medication order) DULoxetine (CYMBALTA) DR capsule 120 mg 120 mg, Oral, DAILY, First dose on Mon01/16/24 at 0900 0923 ($Given - Provider: Jeremiah Mendoza RN) 0811 ($Given - Provider: Milli Jackson, YARED) 0831 ($Given - Provider: Leatha Morrissey, YARED) famotidine (PEPCID) injection 20 mg(Linked Group 1) 20 mg, Intravenous, Administer over 2 Minutes, AT BEDTIME, First dose on Mon01/17/24 at 2200, If unable to take oral Dose adjusted per renal dosing policy. Estimated CrCl = 30-60 mL/min. For ordered IV doses 1-20 mg, give IV Push diluted with 5-10 mL NS over a minimum of 2 minutes. 2134 (See Alternative - Provider: Sydni Mendez RN) 2204 (See Alternative - Provider: Amy Barrera, YARED) famotidine (PEPCID) tablet 20 mg(Linked Group 1) 20 mg, Oral, AT BEDTIME, First dose on Mon01/17/24 at 2200, Dose adjusted per renal dosing policy. Estimated CrCl = 30-60 mL/min. 2134 ($Given - Provider: Sydni Mendez, YARED) 2204 ($Given - Provider: Amy Barrera RN) furosemide (LASIX) injection 40 mg (COMPLETED) 40 mg, Intravenous, 2 TIMES DAILY, Administer over 1-3 Minutes, First dose on 01/21/24 at 0900, For 2 doses 922 ($Given - Provider: Jeremiah Mendoza RN)2034 ($Given - Provider: Sydni Mendez RN) furosemide (LASIX) tablet 40 mg 40 mg, Oral, DAILY, First dose on 01/21/24 at 0900, On hold since 01/21/2024 at 0816 until manually unheld 0816 (Held by provider - Provider: Susan Moody MD - Reason: Other)0900 (Automatically Held - Provider: Susan Moody MD) 0900 (Automatically Held - Provider: Susan Moody MD) 0900 (Automatically Held - Provider: Susan Moody MD)1321 (Unheld by provider - Provider: Orders Generic Provider) lisinopril (ZESTRIL) tablet 20 mg 20 mg, Oral, DAILY, First dose on 01/21/24 at 0900 0923 ($Given - Provider: Jeremiah Mendoza RN) 0811 ($Given - Provider: Milli Jackson RN) 0831 ($Given - Provider: Leatha Morrissey RN) mirtazapine (REMERON) tablet 15 mg 15 mg, Oral, AT BEDTIME, First dose on Mon01/15/24 at 2200 2135 ($Given - Provider: Sydni Mendez RN) 2205 ($Given - Provider: Amy Barrera RN) polyethylene glycol (MIRALAX) Packet 17 g 17 g, Oral, DAILY, First dose on Mon01/18/24 at 0900, To prevent constipation. Mixed prescribed dose in 8 ounces of water, juice or soda. Administer daily starting at 0900 on POD 1. Hold for loose stools. 1 Packet = 17 grams. Mix each gram with at least 1/2 ounce (15 mL) of water - 8 ounces for 17 g dose, 4 ounces for 8.5 g dose, 2 ounces for 4 g dose. Follow with the same volume of water. Hold for loose stools unless being administered as part of a bowel prep regimen or bowel clean out. 0941 (Not Given - Provider: Jeremiah Mendoza RN - Reason: Order parameters not met) 0932 (Not Given - Provider: Milli Jackson RN - Reason: Patient/family refused) 0937 (Not Given - Provider: Leatha Morrissey RN - Reason: Patient/family refused) potassium chloride demetri ER (KLOR-CON M20) CR tablet 20 mEq (COMPLETED) 20 mEq, Oral, ONCE, On Mon01/21/24 at 0900, For 1 dose, DO NOT CRUSH 0929 ($Given - Provider: Jeremiah Mendoza RN) potassium chloride demetri ER (KLOR-CON M20) CR tablet 20 mEq (COMPLETED) 20 mEq, Oral, ONCE, On Mon01/22/24 at 0330, For 1 dose, Potassium level 3.5-3.8 mmol/L Ordered from the Potassium replacement order set. DO NOT CRUSH, Potassium Replacement: Potassium level 3.5-3.8 mmol/L, Recheck: Potassium level next AM 0320 ($Given - Provider: Sydni Mendez RN) potassium chloride demetri ER (KLOR-CON M20) CR tablet 40 mEq (COMPLETED) 40 mEq, Oral, ONCE, On Mon01/21/24 at 2200, For 1 dose, Potassium level 3.1 - 3.4 mmol/L Ordered from the Potassium replacement order set. DO NOT CRUSH, Potassium Replacement: Potassium level 3.1-3.4 mmol/L, Recheck: Potassium level 4 hours AFTER last oral dose 2210 ($Given - Provider: Sydni Mendez RN) pregabalin (LYRICA) capsule 75 mg 75 mg, Oral, 2 TIMES DAILY, First dose on Mon01/16/24 at 0900 0923 ($Given - Provider: Jeremiah Mendoza RN)2030 ($Given - Provider: Sydni Mendez RN) 0810 ($Given - Provider: Milli Jackson, YARED)2039 ($Given - Provider: Amy Barrera RN) 0831 ($Given - Provider: Leatha Morrissey RN) senna-docusate (SENOKOT-S/PERICOLACE) 8.6-50 MG per tablet 1 tablet(Linked Group 2) 1 tablet, Oral, 2 TIMES DAILY, First dose on Mon01/15/24 at 2200, If no bowel movement in 24 hours, increase to 2 tablets by mouth. Hold for loose stools. 0941 (Not Given - Provider: Jeremiah Mendoza RN - Reason: Order parameters not met)2130 (Not Given - Provider: Sydni Mendez RN - Reason: Patient/family refused) 0932 (Not Given - Provider: Milli Jackson RN - Reason: Patient/family refused)2040 (Not Given - Provider: Amy Barrera RN - Reason: Patient/family refused) 0938 (Not Given - Provider: Leatha Morrissey RN - Reason: Patient/family refused) senna-docusate (SENOKOT-S/PERICOLACE) 8.6-50 MG per tablet 2 tablet(Linked Group 2) 2 tablet, Oral, 2 TIMES DAILY, First dose on Mon01/15/24 at 2200, Hold for loose stools. 0941 (See Alternative - Provider: Jeremiah Mendoza RN)2130 (See Alternative - Provider: Sydni Mendez RN) 0932 (See Alternative - Provider: Milli Jackson RN)2040 (See Alternative - Provider: Amy Barrera RN) 0938 (See Alternative - Provider: Leatha Morrissey RN) sodium chloride (PF) 0.9% PF flush 10-40 mL 10-40 mL, Intracatheter, EVERY 8 HOURS, First dose on Mon01/19/24 at 1230, Max dose: 10 mL for each lumen Administration instructions IF NOT DONE MORE FREQUENTLY 0512 ($Given - Provider: Miguel Shah RN)1400 ($Given - Provider: Jeremiah Mendoza, YARED)2123 ($Given - Provider: Sydni Mendez RN) 0529 ($Given - Provider: Sydni Mendez RN)1230 ($Given - Provider: Milli Jackson, RN)2044 ($Given - Provider: Amy Barrera, YARED) 0414 ($Given - Provider: Carlos Gómez RN)1230 (Canceled Entry - Provider: Orders Generic Provider - Comment: Automatically canceled at discontinue of medication order) sodium chloride (PF) 0.9% PF flush 3 mL 3 mL, Intracatheter, EVERY 8 HOURS, First dose on Mon01/15/24 at 2200, to lock peripheral IV dormant line 0514 ($Given - Provider: Miguel Shah RN)192 (Not Given - Provider: Jeremiah Mendoza RN - Reason: Other - Comment: duplicate)2130 ($Given - Provider: Sydni Mendez RN) 0552 (Not Given - Provider: Sydni Mendez RN - Reason: Other - Comment: double order)1620 ($Given - Provider: Savita Belle RN)220 (Not Given - Provider: Amy Barrera RN - Reason: Other - Comment: already given) 0558 (Not Given - Provider: Carlos Gómez RN - Reason: Other - Comment: given earlier) sodium chloride (PF) 0.9% PF flush 3 mL 3 mL, Intracatheter, EVERY 8 HOURS, First dose on Mon01/17/24 at 2130, to lock peripheral IV dormant line 0514 ($Given - Provider: Miguel Shah RN)1920 (Not Given - Provider: Jeremiah Mendoza RN - Reason: Other - Comment: given at start of shift)2123 ($Given - Provider: Sydni M Mendez, RN) 0551 ($Given - Provider: Sydni Mendez, RN)1230 ($Given - Provider: Milli Jackson, RN)212 ($Given - Provider: Amy Barrera RN) 0528 ($Given - Provider: Carlos Gómez, YARED) tamsulosin (FLOMAX) capsule 0.8 mg 0.8 mg, Oral, DAILY, First dose on Mon01/16/24 at 0900, Administer 30 minutes after the same meal each day. Capsules should be swallowed whole; do not crush chew or open. 0923 ($Given - Provider: Jeremiah Mendoza, RN) 0810 ($Given - Provider: Milli Jackson, RN) 0831 ($Given - Provider: Leatha Morrissey RN) PRN Medication Order 01/21/2024 01/22/2024 01/23/2024 acetaminophen (TYLENOL) tablet 650 mg 650 mg, Oral, EVERY 4 HOURS PRN, other, For optimal non-opioid multimodal pain management to improve pain control., Starting on Mon01/20/24 at 0000, May give first dose 4 hours after last scheduled dose of acetaminophen (TYLENOL). Maximum acetaminophen dose from all sources = 75 mg/kg/day not to exceed 4 grams/day. 2055 ($Given - Provider: Sydni Mendez RN) 09 ($Given - Provider: Savita Belle RN) benzocaine-menthol (CHLORASEPTIC) 6-10 MG lozenge 1 lozenge 1 lozenge, Buccal, EVERY 1 HOUR PRN, sore throat, sore throat without fever, Starting on Mon01/17/24 at 2116 bisacodyl (DULCOLAX) suppository 10 mg 10 mg, Rectal, DAILY PRN, constipation, Use if Magnesium hydroxide (MILK of MAGNESIA) not effective after 24 hours. May discontinue if patient having bowel movement., Starting on Mon01/17/24 at 2116, Hold for loose stools. calcium carbonate (TUMS) chewable tablet 1,000 mg 1,000 mg, Oral, 4 TIMES DAILY PRN, heartburn, Starting on Mon01/15/24 at 2145 hydrALAZINE (APRESOLINE) injection 10 mg(Linked Group 3) 10 mg, Intravenous, EVERY 4 HOURS PRN, high blood pressure, for systolic BP greater than 180 mmHg, Administer over 1 Minutes, Starting on Mon01/15/24 at 2147 hydrALAZINE (APRESOLINE) tablet 10 mg(Linked Group 3) 10 mg, Oral, EVERY 4 HOURS PRN, high blood pressure, for systolic BP greater than 180 mmHg, Starting on Mon01/15/24 at 2147 HYDROmorphone (DILAUDID) injection 0.1 mg(Linked Group 4) 0.1 mg, Intravenous, EVERY 2 HOURS PRN, moderate pain, Starting on Mon01/17/24 at 2117, IF patient unable to take oral pain medication or pain not controlled with oral analgesics. Hold IV PRN opioid dose for analgesic side effects. Notify provider to assess for uncontrolled pain or analgesic side effects. HYDROmorphone (DILAUDID) injection 0.2 mg(Linked Group 4) 0.2 mg, Intravenous, EVERY 2 HOURS PRN, severe pain, Starting on Mon01/17/24 at 2117, IF patient unable to take oral pain medication or pain not controlled with oral analgesics. Hold IV PRN opioid dose for analgesic side effects. Notify provider to assess for uncontrolled pain or analgesic side effects. hydrOXYzine HCl (ATARAX) tablet 10 mg 10 mg, Oral, EVERY 6 HOURS PRN, other, adjuvant pain, Starting on Mon01/17/24 at 2117 lidocaine (LMX4) cream Topical, EVERY 1 HOUR PRN, pain, with VAD insertion, Starting on Mon01/15/24 at 2145, Apply at least 30 minutes prior to VAD insertion in divided doses as needed for size of site for insertion. MAX Dose: 2.5 g (?? of 5 g tube) Do NOT give if patient has a history of allergy to any local anesthetic or any eliud product. Do NOT use both lidocaine intradermal/subcutaneous injection and the lidocaine cream on the same site. lidocaine (XYLOCAINE) 2 % external gel Urethral, ONCE PRN, mild pain, other, crandall insertion, Starting on Mon01/15/24 at 2326, For 1 dose lidocaine (XYLOCAINE) 2 % external gel Urethral, EVERY 4 HOURS PRN, mild pain, Starting on Mon01/16/24 at 1608 lidocaine 1 % 0.1-1 mL 0.1-1 mL, Other, EVERY 1 HOUR PRN, mild pain with VAD insertion, Starting on Mon01/15/24 at 2145, MAX dose 1 mL subcutaneous OR intradermal along the side of the vein in divided doses as needed for VAD insertion. Do NOT give if patient has a history of allergy to any local anesthetic or any eliud product. Do NOT use both lidocaine intradermal/subcutaneous injection and the lidocaine cream on the same site. magnesium hydroxide (MILK OF MAGNESIA) suspension 30 mL 30 mL, Oral, DAILY PRN, constipation, Use if preventive measures (senna-docusate, docusate, and polyethylene glycol) are not effective., Starting on Mon01/17/24 at 2116, Shake well. Hold for loose stools. melatonin tablet 1 mg 1 mg, Oral, AT BEDTIME PRN, sleep, Starting on Mon01/15/24 at 2148, Do not give unless at least 6 hours of uninterrupted sleep is expected. If patient has multiple medications ordered PRN sleep/insomnia, offer melatonin first. naloxone (NARCAN) injection 0.2 mg(Linked Group 5) 0.2 mg, Intravenous, EVERY 2 MIN PRN, opioid reversal, Starting on Mon01/15/24 at 2156, Administer intravenous route when available and notify provider when administered. For unintended sedation or respiratory depression if all of the below criteria are met: ~ respiratory rate LESS than or EQUAL to 8. ~SaO2 less than 92% and or/end-tidal CO2 is greater than 50. ~ the patient is receiving an opioid, has unintended sedations assessed as RASS (-3), and is currently not on mechanical ventilation. RASS scale moderate (-3) is movement or eye opening to voice but no eye contact. Patient Monitoring Once the patient has demonstrated a response to the naloxone, continue to monitor respiratory rate, depth, oxygen saturation and end-tidal CO2 (if available) every 15 minutes x 2, then every 30 minutes x 2, then every 1 hour x 1 after each naloxone dose. Consider transfer to ICU if patient respiratory parameters have not improved after 4 naloxone doses. naloxone (NARCAN) injection 0.2 mg(Linked Group 5) 0.2 mg, Intramuscular, EVERY 2 MIN PRN, opioid reversal, Starting on Mon01/15/24 at 2156, Administer intramuscular if an intravenous route is not available and notify provider when administered. For unintended sedation or respiratory depression if all of the below criteria are met: ~ respiratory rate LESS than or EQUAL to 8. ~SaO2 less than 92% and or/end-tidal CO2 is greater than 50. ~ the patient is receiving an opioid, has unintended sedations assessed as RASS (-3), and is currently not on mechanical ventilation. RASS scale moderate (-3) is movement or eye opening to voice but no eye contact. Patient Monitoring Once the patient has demonstrated a response to the naloxone, continue to monitor respiratory rate, depth, oxygen saturation and end-tidal CO2 (if available) every 15 minutes x 2, then every 30 minutes x 2, then every 1 hour x 1 after each naloxone dose. Consider transfer to ICU if patient respiratory parameters have not improved after 4 naloxone doses. naloxone (NARCAN) injection 0.4 mg(Linked Group 5) 0.4 mg, Intravenous, EVERY 2 MIN PRN, opioid reversal, Starting on Mon01/15/24 at 2156, Administer intravenous route when available and notify provider when administered. For unintended sedation or respiratory depression if all of the below criteria are met: ~ respiratory rate LESS than or EQUAL to 8. ~ SaO2 less than 92% and or/end-tidal CO2 is greater than 50. ~ the patient is receiving an opioid, has unintended sedation assessed as RASS (-4) or (-5) and patient is currently not on mechanical ventilation. RASS scale (-4) is deep sedation with no response to voice but movement or eye opening to physical stimulation. RASS scale (-5) is unarousable. Patient Monitoring Once the patient has demonstrated a response to the naloxone, continue to monitor respiratory rate, depth, oxygen saturation and end-tidal CO2 (if available) every 15 minutes x 2, then every 30 minutes x 2, then every 1 hour x 1 after each naloxone dose. Consider transfer to ICU if patient respiratory parameters have not improved after 4 naloxone doses. naloxone (NARCAN) injection 0.4 mg(Linked Group 5) 0.4 mg, Intramuscular, EVERY 2 MIN PRN, opioid reversal, Starting on Mon01/15/24 at 2156, Administer intramuscular if an intravenous route is not available and notify provider when administered. For unintended sedation or respiratory depression if all of the below criteria are met: ~ respiratory rate LESS than or EQUAL to 8. ~ SaO2 less than 92% and or/end-tidal CO2 is greater than 50. ~ the patient is receiving an opioid, has unintended sedation assessed as RASS (-4) or (-5) and patient is currently not on mechanical ventilation. RASS scale (-4) is deep sedation with no response to voice but movement or eye opening to physical stimulation. RASS scale (-5) is unarousable. Patient Monitoring Once the patient has demonstrated a response to the naloxone, continue to monitor respiratory rate, depth, oxygen saturation and end-tidal CO2 (if available) every 15 minutes x 2, then every 30 minutes x 2, then every 1 hour x 1 after each naloxone dose. Consider transfer to ICU if patient respiratory parameters have not improved after 4 naloxone doses. ondansetron (ZOFRAN ODT) ODT tab 4 mg(Linked Group 6) 4 mg, Oral, EVERY 6 HOURS PRN, nausea, vomiting, Starting on Mon01/17/24 at 2117, This is Step 1 of nausea and vomiting management. If nausea not resolved in 15 minutes, go to Step 2 prochlorperazine (COMPAZINE). Do not push through foil backing. Peel back foil and gently remove. Place on tongue immediately. Administration with liquid unnecessary With dry hands, peel back foil backing and gently remove tablet. Do not push oral disintegrating tablet through foil backing. Administer immediately on tongue and oral disintegrating tablet dissolves in seconds, then swallow with saliva. Liquid not required. 2127 ($Given - Provider: Amy Barrera RN) ondansetron (ZOFRAN) injection 4 mg(Linked Group 6) 4 mg, Intravenous, EVERY 6 HOURS PRN, nausea, vomiting, Administer over 2-5 Minutes, Starting on Mon01/17/24 at 2117, This is Step 1 of nausea and vomiting management. If nausea not resolved in 15 minutes, go to Step 2 prochlorperazine (COMPAZINE). Irritant. 2127 (See Alternative - Provider: Amy Barrera RN) oxyCODONE (ROXICODONE) tablet 10 mg(Linked Group 7) 10 mg, Oral, EVERY 4 HOURS PRN, severe pain, Starting on Mon01/20/24 at 1459, Hold oral PRN dose for analgesic side effects. Notify provider to assess for uncontrolled pain or analgesic side effects. Hold while on IV CAD DRAFTSMAN or with regular IV opioid dosing. 928 ($Given - Provider: Jeremiah Mendoza RN)1400 ($Given - Provider: Jeremiah Mendoza RN)2056 (See Alternative - Provider: Sydni Mendez RN) 0910 (See Alternative - Provider: Savita Belle RN)1624 (See Alternative - Provider: Savita Belle RN)2056 ($Given - Provider: Amy Barrera RN) 0417 (See Alternative - Provider: Carlos Gómez, YARED)0831 ($Given - Provider: Leatha Morrissey RN) oxyCODONE (ROXICODONE) tablet 5 mg(Linked Group 7) 5 mg, Oral, EVERY 4 HOURS PRN, moderate pain, Starting on 01/20/24 at 1459, Hold oral PRN dose for analgesic side effects. Notify provider to assess for uncontrolled pain or analgesic side effects. Hold while on IV CAD DRAFTSMAN or with regular IV opioid dosing. 0929 (See Alternative - Provider: Jeremiah Mendoza RN)1400 (See Alternative - Provider: Jeremiah Mendoza RN)2056 ($Given - Provider: Sydni Mendez RN) 0910 ($Given - Provider: Savita Belle RN)1624 ($Given - Provider: Savita Belle RN)2056 (See Alternative - Provider: Amy Barrera RN) 0417 ($Given - Provider: Carlos Gómez RN)0831 (See Alternative - Provider: Leatha Morrissey, YARED) prochlorperazine (COMPAZINE) injection 5 mg(Linked Group 8) 5 mg, Intravenous, EVERY 6 HOURS PRN, nausea, vomiting, Administer over 1-2 Minutes, Starting on Mon01/17/24 at 2117, This is Step 2 of nausea and vomiting management. If nausea not resolved in 15-30 minutes, Notify provider. prochlorperazine (COMPAZINE) tablet 5 mg(Linked Group 8) 5 mg, Oral, EVERY 6 HOURS PRN, nausea, vomiting, Starting on Mon01/17/24 at 2117, This is Step 2 of nausea and vomiting management. If nausea not resolved in 15-30 minutes, Notify provider. senna-docusate (SENOKOT-S/PERICOLACE) 8.6-50 MG per tablet 1 tablet(Linked Group 9) 1 tablet, Oral, 2 TIMES DAILY PRN, constipation, Starting on Mon01/15/24 at 2145, If no bowel movement in 24 hours, increase to 2 tablets by mouth. IF more than 1 constipation PRN medication is ordered, administer step-metcalf as indicated, moving to the next step ONLY if prior step ineffective. Step 1: senna-docusate (SENOKOT-S; PERICOLACE) OR bisacodyl (DULCOLAX) EC tablet Step 2: polyethylene glycol (MIRALAX/GLYCOLAX) Step 3: bisacodyl (DULCOLAX) suppository Step 4: enema Hold for loose stools. senna-docusate (SENOKOT-S/PERICOLACE) 8.6-50 MG per tablet 2 tablet(Linked Group 9) 2 tablet, Oral, 2 TIMES DAILY PRN, constipation, Starting on Mon01/15/24 at 2145, IF more than 1 constipation PRN medication is ordered, administer step-metcalf as indicated, moving to the next step ONLY if prior step ineffective. Step 1: senna-docusate (SENOKOT-S; PERICOLACE) OR bisacodyl (DULCOLAX) EC tablet Step 2: polyethylene glycol (MIRALAX/GLYCOLAX) Step 3: bisacodyl (DULCOLAX) suppository Step 4: enema Hold for loose stools. sodium chloride (PF) 0.9% PF flush 10-20 mL 10-20 mL, Intracatheter, EVERY 1 MIN PRN, line flush, Starting on Mon01/19/24 at 1212, Sodium chloride 0.9% 10 mL flush pre and post IV medications Sodium chloride 0.9% 20 mL flush pre and post blood draws or blood administration sodium chloride (PF) 0.9% PF flush 3 mL 3 mL, Intracatheter, EVERY 1 MIN PRN, line flush, other, to ensure patency or to lock dormant line, Starting on Mon01/15/24 at 2145 sodium chloride (PF) 0.9% PF flush 3 mL 3 mL, Intracatheter, EVERY 1 MIN PRN, line flush, other, to ensure patency or to lock dormant line, Starting on Mon01/17/24 at 2116 zolpidem (AMBIEN) tablet 5 mg 5 mg, Oral, AT BEDTIME PRN, sleep, Starting on Mon01/15/24 at 2142, If the patient has multiple insomnia agents ordered PRN, offer in the following order per policy. Move to the next available step if the earlier step is ineffective. Step 1 - melatonin; Step 2 - zolpidem Linked Groups Order Group 1: famotidine (PEPCID) tablet 20 mgJump to med 20 mg, Oral, AT BEDTIME, First dose on Mon01/17/24 at 2200, Dose adjusted per renal dosing policy. Estimated CrCl = 30-60 mL/min. Or famotidine (PEPCID) injection 20 mgJump to med 20 mg, Intravenous, Administer over 2 Minutes, AT BEDTIME, First dose on Mon01/17/24 at 2200, If unable to take oral Dose adjusted per renal dosing policy. Estimated CrCl = 30-60 mL/min. For ordered IV doses 1-20 mg, give IV Push diluted with 5-10 mL NS over a minimum of 2 minutes. Group 2: senna-docusate (SENOKOT-S/PERICOLACE) 8.6-50 MG per tablet 1 tabletJump to med 1 tablet, Oral, 2 TIMES DAILY, First dose on Mon01/15/24 at 2200, If no bowel movement in 24 hours, increase to 2 tablets by mouth. Hold for loose stools. Or senna-docusate (SENOKOT-S/PERICOLACE) 8.6-50 MG per tablet 2 tabletJump to med 2 tablet, Oral, 2 TIMES DAILY, First dose on Mon01/15/24 at 2200, Hold for loose stools. Group 3: hydrALAZINE (APRESOLINE) tablet 10 mgJump to med 10 mg, Oral, EVERY 4 HOURS PRN, high blood pressure, for systolic BP greater than 180 mmHg, Starting on Mon01/15/24 at 2147 Or hydrALAZINE (APRESOLINE) injection 10 mgJump to med 10 mg, Intravenous, EVERY 4 HOURS PRN, high blood pressure, for systolic BP greater than 180 mmHg, Administer over 1 Minutes, Starting on Mon01/15/24 at 2147 Group 4: HYDROmorphone (DILAUDID) injection 0.1 mgJump to med 0.1 mg, Intravenous, EVERY 2 HOURS PRN, moderate pain, Starting on Mon01/17/24 at 2116, IF patient unable to take oral pain medication or pain not controlled with oral analgesics. Hold IV PRN opioid dose for analgesic side effects. Notify provider to assess for uncontrolled pain or analgesic side effects. Or HYDROmorphone (DILAUDID) injection 0.2 mgJump to med 0.2 mg, Intravenous, EVERY 2 HOURS PRN, severe pain, Starting on Mon01/17/24 at 2116, IF patient unable to take oral pain medication or pain not controlled with oral analgesics. Hold IV PRN opioid dose for analgesic side effects. Notify provider to assess for uncontrolled pain or analgesic side effects. Group 5: naloxone (NARCAN) injection 0.2 mgJump to med 0.2 mg, Intravenous, EVERY 2 MIN PRN, opioid reversal, Starting on Mon01/15/24 at 2155, Administer intravenous route when available and notify provider when administered. For unintended sedation or respiratory depression if all of the below criteria are met: ~ respiratory rate LESS than or EQUAL to 8. ~SaO2 less than 92% and or/end-tidal CO2 is greater than 50. ~ the patient is receiving an opioid, has unintended sedations assessed as RASS (-3), and is currently not on mechanical ventilation. RASS scale moderate (-3) is movement or eye opening to voice but no eye contact. Patient Monitoring Once the patient has demonstrated a response to the naloxone, continue to monitor respiratory rate, depth, oxygen saturation and end-tidal CO2 (if available) every 15 minutes x 2, then every 30 minutes x 2, then every 1 hour x 1 after each naloxone dose. Consider transfer to ICU if patient respiratory parameters have not improved after 4 naloxone doses. Or naloxone (NARCAN) injection 0.4 mgJump to med 0.4 mg, Intravenous, EVERY 2 MIN PRN, opioid reversal, Starting on Mon01/15/24 at 2155, Administer intravenous route when available and notify provider when administered. For unintended sedation or respiratory depression if all of the below criteria are met: ~ respiratory rate LESS than or EQUAL to 8. ~ SaO2 less than 92% and or/end-tidal CO2 is greater than 50. ~ the patient is receiving an opioid, has unintended sedation assessed as RASS (-4) or (-5) and patient is currently not on mechanical ventilation. RASS scale (-4) is deep sedation with no response to voice but movement or eye opening to physical stimulation. RASS scale (-5) is unarousable. Patient Monitoring Once the patient has demonstrated a response to the naloxone, continue to monitor respiratory rate, depth, oxygen saturation and end-tidal CO2 (if available) every 15 minutes x 2, then every 30 minutes x 2, then every 1 hour x 1 after each naloxone dose. Consider transfer to ICU if patient respiratory parameters have not improved after 4 naloxone doses. Or naloxone (NARCAN) injection 0.2 mgJump to med 0.2 mg, Intramuscular, EVERY 2 MIN PRN, opioid reversal, Starting on Mon01/15/24 at 2156, Administer intramuscular if an intravenous route is not available and notify provider when administered. For unintended sedation or respiratory depression if all of the below criteria are met: ~ respiratory rate LESS than or EQUAL to 8. ~SaO2 less than 92% and or/end-tidal CO2 is greater than 50. ~ the patient is receiving an opioid, has unintended sedations assessed as RASS (-3), and is currently not on mechanical ventilation. RASS scale moderate (-3) is movement or eye opening to voice but no eye contact. Patient Monitoring Once the patient has demonstrated a response to the naloxone, continue to monitor respiratory rate, depth, oxygen saturation and end-tidal CO2 (if available) every 15 minutes x 2, then every 30 minutes x 2, then every 1 hour x 1 after each naloxone dose. Consider transfer to ICU if patient respiratory parameters have not improved after 4 naloxone doses. Or naloxone (NARCAN) injection 0.4 mgJump to med 0.4 mg, Intramuscular, EVERY 2 MIN PRN, opioid reversal, Starting on Mon01/15/24 at 2156, Administer intramuscular if an intravenous route is not available and notify provider when administered. For unintended sedation or respiratory depression if all of the below criteria are met: ~ respiratory rate LESS than or EQUAL to 8. ~ SaO2 less than 92% and or/end-tidal CO2 is greater than 50. ~ the patient is receiving an opioid, has unintended sedation assessed as RASS (-4) or (-5) and patient is currently not on mechanical ventilation. RASS scale (-4) is deep sedation with no response to voice but movement or eye opening to physical stimulation. RASS scale (-5) is unarousable. Patient Monitoring Once the patient has demonstrated a response to the naloxone, continue to monitor respiratory rate, depth, oxygen saturation and end-tidal CO2 (if available) every 15 minutes x 2, then every 30 minutes x 2, then every 1 hour x 1 after each naloxone dose. Consider transfer to ICU if patient respiratory parameters have not improved after 4 naloxone doses. Group 6: ondansetron (ZOFRAN ODT) ODT tab 4 mgJump to med 4 mg, Oral, EVERY 6 HOURS PRN, nausea, vomiting, Starting on Mon01/17/24 at 2117, This is Step 1 of nausea and vomiting management. If nausea not resolved in 15 minutes, go to Step 2 prochlorperazine (COMPAZINE). Do not push through foil backing. Peel back foil and gently remove. Place on tongue immediately. Administration with liquid unnecessary With dry hands, peel back foil backing and gently remove tablet. Do not push oral disintegrating tablet through foil backing. Administer immediately on tongue and oral disintegrating tablet dissolves in seconds, then swallow with saliva. Liquid not required. Or ondansetron (ZOFRAN) injection 4 mgJump to med 4 mg, Intravenous, EVERY 6 HOURS PRN, nausea, vomiting, Administer over 2-5 Minutes, Starting on Mon01/17/24 at 2117, This is Step 1 of nausea and vomiting management. If nausea not resolved in 15 minutes, go to Step 2 prochlorperazine (COMPAZINE). Irritant. Group 7: oxyCODONE (ROXICODONE) tablet 5 mgJump to med 5 mg, Oral, EVERY 4 HOURS PRN, moderate pain, Starting on 01/20/24 at 1459, Hold oral PRN dose for analgesic side effects. Notify provider to assess for uncontrolled pain or analgesic side effects. Hold while on IV CAD DRAFTSMAN or with regular IV opioid dosing. Or oxyCODONE (ROXICODONE) tablet 10 mgJump to med 10 mg, Oral, EVERY 4 HOURS PRN, severe pain, Starting on 01/20/24 at 1459, Hold oral PRN dose for analgesic side effects. Notify provider to assess for uncontrolled pain or analgesic side effects. Hold while on IV CAD DRAFTSMAN or with regular IV opioid dosing. Group 8: prochlorperazine (COMPAZINE) injection 5 mgJump to med 5 mg, Intravenous, EVERY 6 HOURS PRN, nausea, vomiting, Administer over 1-2 Minutes, Starting on Mon01/17/24 at 2117, This is Step 2 of nausea and vomiting management. If nausea not resolved in 15-30 minutes, Notify provider. Or prochlorperazine (COMPAZINE) tablet 5 mgJump to med 5 mg, Oral, EVERY 6 HOURS PRN, nausea, vomiting, Starting on Mon01/17/24 at 2117, This is Step 2 of nausea and vomiting management. If nausea not resolved in 15-30 minutes, Notify provider. Group 9: senna-docusate (SENOKOT-S/PERICOLACE) 8.6-50 MG per tablet 1 tabletJump to med 1 tablet, Oral, 2 TIMES DAILY PRN, constipation, Starting on Mon01/15/24 at 2145, If no bowel movement in 24 hours, increase to 2 tablets by mouth. IF more than 1 constipation PRN medication is ordered, administer step-metcalf as indicated, moving to the next step ONLY if prior step ineffective. Step 1: senna-docusate (SENOKOT-S; PERICOLACE) OR bisacodyl (DULCOLAX) EC tablet Step 2: polyethylene glycol (MIRALAX/GLYCOLAX) Step 3: bisacodyl (DULCOLAX) suppository Step 4: enema Hold for loose stools. Or senna-docusate (SENOKOT-S/PERICOLACE) 8.6-50 MG per tablet 2 tabletJump to med 2 tablet, Oral, 2 TIMES DAILY PRN, constipation, Starting on Mon01/15/24 at 2145, IF more than 1 constipation PRN medication is ordered, administer step-metcalf as indicated, moving to the next step ONLY if prior step ineffective. Step 1: senna-docusate (SENOKOT-S; PERICOLACE) OR bisacodyl (DULCOLAX) EC tablet Step 2: polyethylene glycol (MIRALAX/GLYCOLAX) Step 3: bisacodyl (DULCOLAX) suppository Step 4: enema Hold for loose stools. documented in this encounter Care Teams Record Librarian Relationship Specialty Start Date End Date No Ref-Primary, Physician PCP - General 07/29/21 01/15/24 Mary Ruggiero PA-C [address] [facility] [id number] PCP - General 01/16/24 documented as of this encounter
--- OUTSIDE RECORDS SUMMARY | 2024-02-12 18:02 | XMS_ITS | Encounter Summary ---
Author Organization [place] Address [address] [facility] [place] [address] Care Team Providers Care Estimator Name Role Phone Mary Ruggiero PA-C Primary Care Provider [phone] Reason for Visit * Auth/Cert (Routine) Specialty Diagnoses / Procedures Referred By Contac t Referred To Contact Med Surg Diagnoses Septic athritis of prosthetic joint Septic joint (H) [facility] Sp[facility] [address] [facility] [place] [address] Referral ID Status Reason Start Date Expiration Date Visits Re quested Visits Authorized [id number] 1 1 Encounter Details Date Type Department Care Team (Late st Contact Info) Description 01/17/2024 4:56 PM CDT Anesthesia Event [facility] [address] [place] [id number] Rudy Avila MD [facility] [address] [facility] [place] [address] Mike Salguero Anesthesia Record Procedure Summary Procedure Name Responsible Anesthesiologist Anesthesia Start Time Anesthesia Stop Time RIGHT REVISION TOTAL KNEE ARTHROPLASTY (Right: Knee) Rudy Avila MD 01/17/24 1656 01/17/24 1921 Events Date Time Event Comment 01/17/2024 1627 1656 An Start 1700 An Start Data 1702 AN REASSESS I attest that I have identified and re-evaluated the patient immediately before the induction of anesthesia and I am satisfied that the anesthetic plan is suitable for the patient's condition and procedure. The first vital signs recorded are pre- induction. Machelle Davidson 1705 An Induction 1707 An Intubation 171 Anesthesia Ready for Procedu re 172 AN INCISION 173 MD Present 191 AN Extubation All extubation criteria met prior to removal. 1915 Quick Note Spontaneous res pirations, tidal volume > 600, oxygen saturation > 97%, TOF 4/4 with > 5 seconds sustained tetany, follows commands. Suctioned and extubated with cuff down to facemask. Exchanging well. 1916 an stop data 1920 An Stop Electronically signed by Mere Marie APRN CRNA on January 17, 2024 7:37 PM Meds Name Total midazolam 1 mg/mL 1 mg fentaNYL 50 mcg/mL 100 mcg HYDROmorphone 1 mg/mL 1 mg dexMEDetomidine (PRECEDEX) 4 mcg/ml in N aCl 25mL 16 mcg lidocaine 2% 100 mg propofol 10 mg/mL 200 mg rocuronium 10 mg/mL 80 mg phenylephrine (CARSON-SYNEPHRINE) injection 1,600 mcg dexamethasone (DECADRON) 4 mg/mL 4 mg phenylephrine 0.2 mg/mL (mcg/kg/min) dri p 1.11 mg ondansetron 2 mg/mL 4 mg sugammadex (BRIDION) 200mg/2mL 280 mg ceFAZolin (ANCEF) 2 g in 100 mL D5W inte rmittent infusion 2 g tranexamic acid 1 g in 100 mL NS IV bag (premix) 1 g lactated ringers infusion 1,300 mL albumin 5% 250 mL * Agents Name O2 N2O Air Exp Sevoflurane Exp Isoflurane Exp Desflurane O2 Delivery Device Ins Sevoflurane Ins Isoflurane Ins Desflurane O2 Auxiliary * Blood No blood administrations on file. Lines, Drains, and Airways Type Details Placement Removal Incision/Surgical Site 01/17/24; 1727; Anterior, Right; Knee 01/17/24 1727 by Daron Stewart RN Peripheral IV 01/15/24; Left, Dorsal; Lower forearm 01/15/24 0000 by Jeremiah Mendoza RN 01/23/24 1221 by Inpatient, Nurse Urethral Catheter 01/16/24; 1802; Insertion difficulty 01/16/24 1802 by Crys Oliver RN 01/23/24 1221 by Inpatient, Nurse ETT Placement Date: 01/17/24; Placement Time: 1707 (created via procedure documentation); Mask Ventilation: 2; Induction Type: Intravenous; Ease of Intubation: Easy; Technique: Video laryngoscopy; Tube Size: 8 mm; VL Blade Size: Field 4; Grade View: 1; Adjucts: Stylet; Placement Person: STATION GATEMAN; Attempts: 1 01/17/24 170 by Machelle Davidson 01/17/241915 by Mere Marie APRN STATION GATEMAN Closed/Suction Drain 01/17/24; 1857; Rig ht, Anterior; Knee; Accordion; 10 Arabic 01/17/24 1858 by Daron Stewart, RN 01/21/24 1100 by Jeremiah Mendoza RN documented in this encounter Social History Tobacco Use Types Packs/Day Years [...] on file documented as of this encounter OR Notes * Anesthesia Postprocedure Evaluation - Rudy Avila MD - 01/17/2024 7:48 PM CDT Patient: Osvaldo Zuniga Procedure: Procedure(s): RIGHT REVISION TOTAL KNEE ARTHROPLASTY WITH PLACEMENT OF ANTIBIOTIC SPACER Anesthesia Type: General Note: Postop Pain Control: Uneventful Sign Out: Well controlled pain PONV: No Neuro/Psych: Uneventful Sign Out: Acceptable/Baseline neuro status Airway/Respiratory: Uneventful Sign Out: Acceptable/Baseline resp. status CV/Hemodynamics: Uneventful Sign Out: Acceptable CV status Other NRE: NONE DID A NON-ROUTINE EVENT OCCUR? Last vitals: Vitals Value Taken Time BP 109/53 01/17/241944 Temp 36.8 ??C (98.3 ??F) 01/17/241918 Pulse 93 01/17/241945 Resp 9 01/17/241945 SpO2 91 % 01/17/241945 Vitals shown include unfiled device data. Electronically Signed By: Rudy Avila MD January 17, 2024 7:48 PM * Anesthesia Procedure Notes - Machelle Davidson - 01/17/2024 5:17 PM CDTAssociated Order(s): Airway Airway Patient location during procedure: OR Procedure Start/Stop Times: 01/17/2024 5:07 PM Staff - Anesthesiologist: Quintin Carbajal MD STATION GATEMAN: Machelle Davidson Performed By: STATION GATEMAN Consent for Airway Urgency: elective Indications and Patient Condition Indications for airway management: millie-procedural Induction type:intravenous Mask difficulty assessment: 2 - vent by mask + OA or adjuvant +/- NMBA Final Airway Details Final airway type: endotracheal airway Successful airway: ETT - single and Oral Endotracheal Airway Details ETT size (mm): 8.0 Cuffed: yes Successful intubation technique: video laryngoscopy VL Blade Size: Field 4 Grade View of Cords: 1 Adjucts: stylet Position: Right Measured from: gums/teeth Secured at (cm): 22 Bite block used: None Post intubation assessment Placement verified by: capnometry, equal breath sounds and chest rise Number of attempts at approach: 1 Number of other approaches attempted: 0 Secured with: tape Ease of procedure: easy Dentition: Intact and Unchanged Medication(s) Administered Medication Administration Time: 01/17/2024 5:07 PM * Anesthesia Preprocedure Evaluation - Quintin Carbajal MD - 01/17/2024 4:23 PM CDT Anesthesia Pre-Procedure Evaluation Patient: Osvaldo Zuniga : 1955 Procedure : Procedure(s): RIGHT REVISION TOTAL KNEE ARTHROPLASTY WITH PLACEMENT OF ANTIBIOTIC SPACER with possible prevena wound vac placement Past Medical History: Diagnosis Date Diabetes (H) Gastroesophageal reflux disease with esophagitis Hypertension Sleep apnea Thrombocytopenia (H24) Past Surgical History: Procedure Laterality Date right knee replacement Allergies Allergen Reactions Metformin Nausea Social History Tobacco Use Smoking status: Never Smokeless tobacco: Never Substance Use Topics Alcohol use: Not Currently Wt Readings from Last 1 Encounters: 04/30/24 138.3 kg (305 lb) Anesthesia Evaluation ROS/MED HX ENT/Pulmonary: (+) sleep apnea, tobacco use, Past use, Neurologic: Comment: Brain Aneurysm Cardiovascular: (+) Dyslipidemia hypertension- - - - - METS/Exercise Tolerance: Hematologic: Musculoskeletal: (+) arthritis, GI/Hepatic: (+) GERD, Asymptomatic on medication, Renal/Genitourinary: (+) renal disease, type: ARF, BPH, Endo: (+) type II DM, Obesity, Psychiatric/Substance Use: (+) psychiatric history anxiety and depression Infectious Disease: Malignancy: Other: Physical Exam Airway Mallampati: III TM distance: > 3 FB Neck ROM: full Mouth opening: > 3 cm Respiratory Devices and Support Dental (+) Minor Abnormalities - some fillings, tiny chips Cardiovascular cardiovascular exam normal Pulmonary pulmonary exam normal OUTSIDE LABS: CBC: Lab Results Component Value Date WBC 11.4 (H) 01/17/2024 WBC 12.0 (H) 01/16/2024 HGB 8.9 (L) 01/17/2024 HGB 9.2 (L) 01/16/2024 HCT 27.0 (L) 01/17/2024 HCT 27.9 (L) 01/16/2024 PLT 121 (L) 01/17/2024 PLT 97 (L) 01/16/2024 BMP: Lab Results Component Value Date NA 135 01/17/2024 NA 132 (L) 01/16/2024 POTASSIUM 4.5 01/17/2024 POTASSIUM 4.1 01/16/2024 CHLORIDE 103 01/17/2024 CHLORIDE 99 01/16/2024 CO2 18 (L) 01/17/2024 CO2 19 (L) 01/16/2024 BUN 49.3 (H) 01/17/2024 BUN 48.1 (H) 01/16/2024 CR 3.77 (H) 01/17/2024 CR 4.49 (H) 01/16/2024 GLC 123 (H) 01/17/2024 GLC 138 (H) 01/17/2024 COAGS: No results found for: PTT, INR, FIBR POC: No results found for: BGM, HCG, HCGS HEPATIC: Lab Results Component Value Date ALBUMIN 2.5 (L) 01/16/2024 PROTTOTAL 6.4 01/16/2024 ALT 16 01/16/2024 AST 19 01/16/2024 ALKPHOS 122 01/16/2024 BILITOTAL 1.4 (H) 01/16/2024 OTHER: Lab Results Component Value Date TOM 8.3 (L) 01/17/2024 CRP <2.9 07/27/2021 SED 79 (H) 01/16/2024 Anesthesia Plan ASA Status: 3 NPO Status: NPO Appropriate Anesthesia Type: General. - Airway: ETT Induction: Intravenous, Propofol. Maintenance: Balanced. Consents Anesthesia Plan(s) and associated risks, benefits, and realistic alternatives discussed. Questions answered and patient/medical service representative(s) expressed understanding. - Discussed: - Discussed with: Patient Postoperative Care Pain management: IV analgesics, Oral pain medications. PONV prophylaxis: Ondansetron (or other 5HT-3), Dexamethasone or Solumedrol Comments: Other Comments: Pt does not want Adductor Canal Block Quintin Carbajal MD I have reviewed the pertinent notes and labs in the chart from the past 30 days and (re)examined the patient. Any updates or changes from those notes are reflected in this note. 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 Anesthesia Type: General Note: Oropharynx: spontaneously breathing and oral airway in place Level of Consciousness: drowsy Oxygen Supplementation: face mask Level of Supplemental Oxygen (L/min / FiO2): 6 Independent Airway: airway patency satisfactory and stable Dentition: dentition unchanged Vital Signs Stable: post-procedure vital signs reviewed and stable Report to RN Given: handoff report given Patient transferred to: PACU Comments: Patient comfortable Handoff Report: Identifed the Patient, Identified the Reponsible Provider, Reviewed the pertinent medical history, Discussed the surgical course, Reviewed Intra-OP anesthesia mangement and issues during anesthesia, Set expectations for post-procedure period and Allowed opportunity for questions andacknowledgement of understanding Vitals: Vitals Value Taken Time BP 107/47 01/17/240 Temp 36.8 ??C (98.3 ??F) 01/17/241918 Pulse 93 01/17/241937 Resp 10 01/17/241937 SpO2 94 % 01/17/241937 Vitals shown include unfiled device data. Electronically Signed By: Mere Marie APRN CRNA January 17, 2024 7:39 PM documented in this encounter Plan of Treatment Not on file documented as of this encounter Procedures Procedure Name Priority Date/Time Associated Diagnosis Comments ANE AIRWAY ETT PERFORMABLE Routine 01/17/2024 5:07 PM CDT documented in this encounter Results * ANE AIRWAY ETT PERFORMABLE (01/17/2024 5:07 PM CDT) Narrative Machelle Davidson - 01/17/2024 5:07 PM CDT Machelle Davidson ? 01/17/2024 ??5:18 PM Airway ? Patient location during procedure: OR ? Procedure Start/Stop Times: 01/17/2024 5:07 PM Staff - ? Anesthesiologist: ??Quintin Carbajal MD ? STATION GATEMAN: Machelle Davidson ? Performed By: STATION GATEMAN Consent for Airway ? Urgency: elective Indications [...] Time: 01/17/2024 5:07 PM Quintin Carbajal MD [place] ANESTHESIA documented in this encounter Visit Diagnoses Not on filedocumented in this encounter Administered Medications Inactive Administered Medications - up to 3 most recent administrations Medication Order MAR Action Action Date Dose Rate Site albumin human 5 % injection Intravenous, CONTINUOUS PRN, Starting on Mon01/17/24 at 1857, Anesthesia Intra-op $New Bag 01/17/2024 6:57 PM CDT ceFAZolin (ANCEF) 2 g in 100 mL D5W intermittent infusion Routine, 2 g, Intravenous, EVERY 12 HOURS, First dose on Mon01/16/24 at 1700, Dose adjusted per renal dosing policy. Estimated CrCl = 11-34 mL/min., Indications: Bone and/or Joint Infection $New Bag 01/19/2024 4:36 AM CDT 2 g 200 mL/h r $New Bag 01/18/2024 4:03 PM CDT 2 g 200 mL/hr $New Bag 01/18/2024 4:59 AM CDT 2 g 200 mL/hr dexAMETHasone (DECADRON) injection Intravenous, PRN, Administer over 1 Minutes, Starting on Mon01/17/24 at 1715, Anesthesia Intra-op $Given 01/17/2024 5:15 PM CDT 4 mg dexmedeTOMIDine (PRECEDEX) 4 mcg/mL in sodium chloride 0.9 % 50 mL infusion INTRA-ARTICULAR, PRN, Starting on Mon01/17/24 at 1827, Anesthesia Intra-op $Given 01/17/2024 6:27 PM CDT 8 mcg $Given 01/17/2024 5:48 PM CDT 8 mcg fentaNYL (PF) (SUBLIMAZE) injection Intravenous, PRN, Administer over 3-5 Minutes, Starting on Mon01/17/24 at 1705, Anesthesia Intra-op $Given 01/17/2024 5:05 PM CDT 100 mcg HYDROmorphone (DILAUDID) injection Intravenous, PRN, Starting on Mon01/17/24 at 1735, Anesthesia Intra-op $Given 01/17/2024 6:35 PM CDT 0.5 mg $Given 01/17/2024 5:35 PM CDT 0.5 mg lactated ringers infusion at 100 mL/hr, Intravenous, CONTINUOUS, Pre-procedure, Starting on Mon01/17/24 at 1630, Until Mon01/17/24 at 1919 $New Bag 01/17/2024 6:31 PM CDT $New Bag 01/17/2024 4:14 PM CDT 100 mL/hr lidocaine 2% injection (MDV) Intravenous, PRN, Starting on Mon01/17/24 at 1705, Anesthesia Intra-op $Given 01/17/2024 5:05 PM CDT 100 mg midazolam (VERSED) injection Intravenous, Administer over 2 Minutes, PRN, Starting on Mon01/17/24 at 1658, Anesthesia Intra-op $Given 01/17/2024 4:58 PM CDT 1 mg ondansetron (ZOFRAN) injection Intravenous, PRN, Administer over 2-5 Minutes, Starting on Mon01/17/24 at 1848, Anesthesia Intra-op $Given 01/17/2024 6:48 PM CDT 4 mg phenylephrine (CARSON-SYNEPHRINE) injection Intravenous, CONTINUOUS PRN, Starting on Mon01/17/24 at 1707, Anesthesia Intra-op $Bolus 01/17/2024 6:52 PM CDT 200 mcg $Bolus 01/17/2024 6:51 PM CDT 200 mcg $Bolus 01/17/2024 6:50 PM CDT 200 mcg phenylephrine 0.2 mg/mL (mcg/kg/min) drip Intravenous, CONTINUOUS PRN, Starting on Mon01/17/24 at 1852, Anesthesia Intra-op Rate/Dose Change 01/17/2024 7:05 PM CDT 0.25 mcg/kg/min 10.373 mL/hr $New Bag 01/17/2024 6:52 PM CDT 0.5 mcg/kg/min 20.745 mL /hr propofol (DIPRIVAN) injection 10 mg/mL vial Intravenous, PRN, Starting on Mon01/17/24 at 1705, Anesthesia Intra-op $Given 01/17/2024 5:05 PM CDT 200 mg rocuronium injection Intravenous, PRN, Starting on Mon01/17/24 at 1705, Anesthesia Intra-op $Given 01/17/2024 5:40 PM CDT 30 mg $Given 01/17/2024 5:05 PM CDT 50 mg sugammadex (BRIDION) injection Intravenous, PRN, Starting on Mon01/17/24 at 1902, Anesthesia Intra-op $Given 01/17/2024 7:02 PM CDT 280 mg tranexamic acid 1 g in 100 mL NS IV bag (premix) 1 g, Intravenous, Administer over 10 Minutes, ONCE, On Mon01/17/24 at 1630, For 1 dose, Give at Closure., Pre-procedure $Given 01/17/2024 6:39 PM CDT 1 g documented in this encounter Care Teams Estimator Relationship Specialty Start Date End Date Mary Ruggiero PA-C [address] [place] [address] PCP - General 01/16/24 documented as of this encounter
--- OUTSIDE RECORDS SUMMARY | 2024-02-12 18:03 | XMS_ITS | Clinical Summary ---
Author Organization [employer] [facility] Address [place], [place] [address] Care Team Providers Care Agency Sales Director Name Role Phone Emma Lisa FORENSIC ENGINEER Unavailable Fani Patel RD Unavailable Osvaldo Guerrero RN Unavailable Simran Warner MD Unavailable [phone] Shonna Grant DECAL TRANSFERRER Unavailable Mary Ruggiero Primary Care Provider [phone] Allergies Active Allergy Reactions Criticality Noted Date Comments Metformin Diarrhea 06/22/2018 Severe diarrhea with XR formulation Medications Medication Sig Dispensed Refills Start Date End Date Status multivitamin (MVI) tablet Take 1 Tablet by mouth once daily. Active CPAPIndications:OS A (obstructive sleep apnea) CPAP machine for home use at pressure 8 cmw, nasal mask x1/3month with nasal pillows x 2/mo 1 Each 11 2 Active vitamin e 1,000 unit cap Take 450 mg by mouth. 2 Active cholecalciferol (Vitamin D) 1,000 unit capsule Take 1 Capsule (1,000 units) by mouth once daily. 0 2 Active tamsulosin (FLOMAX) 0.4 mg capsuleIndications :Prostate cancer (HC),BPH with urinary obstruction Take 2 Capsules (0.8 mg) by mouth once daily after a meal. 180 Capsule 3 3 Active celecoxib (CELEBREX) 200 mg capsuleIndications :Bilateral primary osteoarthritis of knee Take 1 Capsule (200 mg) by mouth 2 times daily if needed for Pain. 180 Capsule 1 3 Active clobetasol 0.05% (TEMOVATE 0.05% OINTMENT) 0.05 % ointmentIndication s:Chronic stasis dermatitis Apply topically to affected area(s) two times daily. 60 g 1 3 Active tiZANidine (ZANAFLEX) 4 mg tabletIndications: Muscle spasm TAKE 1 TABLET(4 MG) BY MOUTH EVERY 6 HOURS NEEDED FOR MUSCLE SPASM 60 Tablet 2 4 Active alendronate (FOSAMAX) 70 mg tabletIndications: Other osteoporosis without current pathological fracture Take 1 Tablet (70 mg) by mouth once a week in the morning. Take on empty stomach with full glass of water. Do not lie down for 1 hr. 12 Tablet 3 4 Active atorvastatin (LIPITOR) 10 mg tabletIndications: Mixed hyperlipidemia Take 1 Tablet (10 mg) by mouth once daily. 90 Tablet 3 4 Active calcitonin salmon, 200 units per actuation, nasal (MIACALCIN, FORTICAL) 200 unit/actuation nasal sprayIndications:C losed fracture of sacrum and coccyx, initial encounter (HC) Inhale 1 Laie into affected nostril(s) once daily. Alternating nostrils daily. 3.7 mL 2 4 Active medication order composerIndication s:GALE (obstructive sleep apnea) 12/27/2016 AHI- 27 Pillows, diagnosis obstructive sleep apnea MRD #1 1 unit 4 Active hydrOXYzine HCL (ATARAX) 25 mg tabletIndications: Pruritus Take 2 Tablets (50 mg) by mouth every 6 hours if needed for Itching. 270 Tablet 2 4 Active lisinopriL (PRINIVIL; ZESTRIL) 20 mg tabletIndications: HTN (hypertension) Take 1 Tablet (20 mg) by mouth once daily. 90 Tablet 3 4 Active pregabalin (LYRICA) 75 mg capsuleIndications :Neuropathic pain Take 1 Capsule (75 mg) by mouth two times daily. 180 Capsule 1 4 Active clopidogreL (PLAVIX) 75 mg tabletIndications: Brain aneurysm Take 1 tablet (75mg) by mouth once daily, start taking Monday01/05/2024 30 Tablet 4 Active famotidine (PEPCID) 10 mg tabletIndications: Antiplatelet or antithrombotic long-term use Take 1 tablet (10mg) by mouth two times a day if needed for stomach upset (while on clopidogrel) 30 Tablet 4 Active ferrous sulfate 325 mg delayed release tabletIndications: Microcytic anemia Take 1 Tablet (325 mg) by mouth once daily with a meal. 90 Tablet 3 4 Active DULoxetine (CYMBALTA) 60 mg Delayed-release capsuleIndications :ARABELLA (generalized anxiety disorder) Take 2 Capsules (120 mg) by mouth once daily. 180 Capsule 1 4 Active mirtazapine (REMERON) 30 mg tabletIndications: Chronic insomnia Take 0.5 Tablets (15 mg) by mouth at bedtime. 45 Tablet 1 4 Active furosemide (LASIX) 40 mg tablet Take 40 mg by mouth every morning. Active zolpidem (AMBIEN) 10 mg tablet Take 10 mg by mouth at bedtime if needed for Sleep. Active aspirin enteric coated (ECOTRIN) 325 mg tablet Take 325 mg by mouth once daily with a meal. 4 03/06/20 24 Active acetaminophen (TYLENOL) 325 mg tablet Take 975 mg by mouth every 8 hours. 4 Active ceFAZolin 2 gram/100 mL dextrose (iso-osm) Inject 2 g intravenous every 8 hours. 4 02/28/20 24 Active oxyCODONE 10 mg tabletIndications: Controlled substance agreement signed,Primary osteoarthritis of both knees,Status post revision of total replacement of right knee,Chronic low back pain, unspecified back pain laterality, unspecified whether sciatica present Take 1-1.5 Tablets (10-15 mg) by mouth three times daily. 135 Tablet 4 Active triamcinolone (ARISTOCORT) 0.1 % ointmentIndication s:Neurodermatitis Apply topically to affected area(s) three times daily. 30 g 2 3 01/15/20 24 Discontinued(P harmacist change per medication history (E-cancel not sent)) oxyCODONE 10 mg tabletIndications: Controlled substance agreement signed,Primary osteoarthritis of both knees,Status post revision of total replacement of right knee,Chronic low back pain, unspecified back pain laterality, unspecified whether sciatica present Take 1 Tablet (10 mg) by mouth three times daily. 90 Tablet 4 02/09/20 24 Discontinued(R eorder (E-cancel not sent)) Active Problems Problem Noted Date Diagnosed Date Acute kidney injury 01/15/2024 Class 3 severe obesity with body mass index (BMI) of 40.0 to 44.9 in adult 01/14/2024 Infection and inflammatory r eaction due to internal right knee prosthesis, subsequent encounter 01/14/2024 Thrombocyte disorder 10/04/2023 Moderate alcohol use disorder, in early remissio n 10/04/2023 Moderate episode of recurrent major depressive d isorder 10/04/2023 Chronic insomnia 09/19/2023 Depression 03/07/2023 Pancytopenia 03/05/2023 Controlled substance agreement signed 03/03/2023 Urge incontinence of urine 10/31/2022 Neurodermatitis 09/16/2022 Chronic pain of right knee 12/29/2021 Status post revision of total replacement of rig ht knee 12/29/2021 Thrombocytopenia 11/07/2021 Prostate cancer 07/08/2021 Vitamin D deficiency 04/02/2021 Morbid obesity with BMI of 45.0-49.9, adult 05/2021 Infected prosthetic knee joint 12/17/2020 RLS (restless legs syndrome) 10/13/2020 Status post right knee replacement 09/08/2020 Diastasis of rectus abdominis 04/26/2018 Osteoarthritis of both knees 02/06/2018 Incarcerated ventral hernia 07/07/2017 Chronic venous insufficiency 02/21/2017 GALE (obstructive sleep apnea) 01/05/2017 Benign localized hyperplasia of prostate 016 Family history of malignant neoplasm of prostate 11/16/2015 Hyperlipidemia 07/01/2015 Depression with anxiety 06/23/2015 Hypertension 06/23/2015 Major depressive disorder, single episode, mild 12/29/2011 Overview: Mild major depression, single episode Resolved Problems Problem Noted Date Diagnosed Date Resolved Date Infection and inflammatory r eaction due to internal right knee prosthesis, initial encounter 01/14/2024 01/14/2024 Type 2 diabetes mellitus wit hout complication, without long-term current use of insulin 10/04/2023 12/25/2023 Acute respiratory failure, u nspecified whether with hypoxia or hypercapnia 07/05/202306/18 Venous ulcer of ankle, left 2022 03/05/2023 Hypokalemia 11/10/2021 03/05/2023 Cognitive impairment 11/10/2021 023 Encephalopathy due to severe acute respiratory syndrome coronavirus 2 (SARS-CoV-2) 11/08/2021 03/05/2023 Pneumonia due to COVID-19 virus 11/08/2021 12/25/2023 Acute respiratory distress 11/07/2021 0 03/05/2023 Anemia 11/07/2021 03/05/2023 Weight gain 08/17/2021 03/05/2023 Prediabetes 04/02/2021 12/21/2023 Weight gain 02/24/2021 08/07/2021 Bacteremia due to Staphylococcus aureus 12/16/2020 03/05/2023 Troponin level elevated 12/14/202007/20 Cellulitis of right lower extremity 02/20/2020 03/05/2023 Venous stasis dermatitis of left lower extremity 02/17/2020 03/05/2023 Dermatitis herpetiformis 11/07/201909/2019 Controlled substance agreement terminated 06/10/2019 02/20/2023 Overview: Ventral hernia without obstr uction or gangrene 01/07/2019 03/05/2023 Controlled substance agreement terminated 07/19/2018 06/10/2019 Precordial pain 07/13/2018 03/05/2023 Costochondritis, acute 07/13/201809/03 Chronic diarrhea 04/26/2018 09/03/2020 Controlled type 2 diabetes m ellitus without complication, without long-term current use of insulin 02/06/2018 01/04/2019 Osteoarthritis of knee 02/06/201812/24 Pre-diabetes 09/26/2016 02/06/2018 Elevated fasting blood sugar 06/25/2015 09/26/2016 Morbid obesity with BMI of 40.0-44.9, adult 06/23/2015 08/07/2021 Screening for diabetes mellitus 06/23/2015 06/25/2015 Annual physical exam 06/22/2015 015 Polyp of colon 03/05/2023 Type 2 diabetes mellitus 09/2021 BRBPR (bright red blood per rectum) 03/05/2023 Colitis 03/05/2023 Depression 03/05/2023 Encounters Date Type Department Care Team Description 02/09/2024 10:30 AM CDT Office Visit [facility] [address] [place] [address] Mary Ruggiero PA Post Procedure (Right total knee revision) 02/09/2024 Travel 02/07/2024 Lab Requisition [facility] [address] [place] [address] Urbano Johnson MD 02/06/2024 Nurse Triage [facility] [address] [place] [address] Mary Ruggiero PA Lab 01/22/2024 Telephone [facility] [place] [address] [place] [phone] Shonna Grant NP Appointment 01/15/2024 Telephone [facility] [address] [place], [place] [id number] Staff, Other Clinical DC PLAVIX 01/15/2024 Telephone [facility] Orthopedics [facility] [address] [facility] [address] [place] [phone] Maynor Hernandez MD Appointment 01/14/2024 11:12 AM CDT - 01/15/2024 7:35 PM CDT Hospital Encounter [facility] [address] [place] [address] Jerilyn Boyce MD Lapham, Renae Ann, NP Cudak, Isidro Elise, DO Bloom, Gabby Berg NP Pyogenic arthritis of right knee joint, due to unspecified organism (HC) (Primary Dx); Infection and inflammatory reaction due to internal left knee prosthesis, initial encounter (HC) Discharge Disposition: Oth Institution w Planned Readmission 01/14/2024 Travel 01/12/2024 9:13 AM CDT - 01/12/2024 11:59 PM CDT Hospital Encounter [facility] [address] [place] [address] Albania Santos NP Antiplatelet or antithrombotic long-term use 01/12/2024 Telephone [facility] [address] [place] [address] Yolanda Terry NP Results 01/01/2024 8:00 AM CDT Office Visit [facility] [address] [place] [address] Amira Vega NP Medication Management (Things could be better) 01/01/2024 Travel 12/28/2023 Orders Only [facility] Scanner 1 scan: (1-Ord) TAREEN DERM, INTRALESIONAL KENALOG INJ, 12/28/2023 12/25/2023 Refill [facility] [address] [place] [address] Mary Ruggiero PA Refill Request 12/21/2023 7:30 AM CDT Office Visit [facility] [address] [place] [address] Mary Ruggiero PA Preoperative Exam (Dr. Dolly Root-01/15/24-endovas cular embolization) 12/21/2023 Travel 12/18/2023 Orders Only [facility] [address] [place] [address] Albania Santos NP <No scans attached> 12/09/2023 Refill [facility] [address] [place] [phone] Mary Ruggiero PA Refill Request (Lisinopril-hydrochlo rothiazide (20-12.5 Mg), Atorvastatin) 12/04/2023 2:00 PM CDT Phone Office Visit [facility] [place] [address] [phone] Jose Luis Alberto MD brain aneurysm 12/03/2023 12:35 PM CDT - 12/03/2023 3:39 PM CDT Emergency [facility] [address] [place] [address] Mariel Collins PA Left leg swelling (Primary Dx); S/P sclerotherapy of varicose veins Discharge Disposition: Home Self Care 12/03/2023 Travel 12/01/2023 8:54 AM CDT - 12/01/2023 11:48 AM CDT Emergency [facility] [address] [place] [address] Marilyn Chavira MD Urinary tract infection in male (Primary Dx); Difficulty urinating Discharge Disposition: Home Self Care 12/01/2023 Travel 11/30/2023 Nurse Triage [facility] [address] [place] [address] Mary Ruggiero PA Urinary Problem 11/30/2023 Telephone [facility] [address] [place] [address] Mary Ruggiero PA Error-please disregard (A user error has taken place: encounter opened in error, closed for administrative reasons/) 11/27/2023 8:20 AM CDT - 11/27/2023 11:59 PM CDT Hospital Encounter [facility] [address] [place] [address] Jose Luis Alberto MD Cerebral aneurysm 11/27/2023 Travel 11/20/2023 3:00 PM PIANO TECHNICIAN Ancillary Procedure [facility] [address] [place] [address] 11/20/2023 2:30 PM PIANO TECHNICIAN Office Visit [facility] [address] [place] [address] Mary Ruggiero PA Medication Management; Ear Problem (Wants left ear checked-having issues) 11/20/2023 Travel from Last 3 Months Immunizations Name Administration Dates Next Due Tdap 10/03/2023,05/13/2013 Family History Medical History Relation Name Comments Cancer-prostate Brother Alcoholism Father cirrhosis Heart Disease Father Osteoporosis Mother Relation Name Status Comments Brother Father Mother Social History Tobacco Use Types Packs/Day Years Used Date Smoking Tobacco: Former Cigarettes Cigars Smokeless Tobacco: Never Tobacco Cessation:Counseling Given: Yes Comments:four years smoke free Passive Exposure Comments:quit 18 years ago Alcohol Use Standard Drinks/Week Comments Not Currently 0 (1 standard drink = 0.6 oz pur e alcohol) recovering alcoholic PHQ-2 Answer Date Recorded PHQ-2 TOTAL SCORE 2 01/01/2024 Social Connections Answer Date Recorded Frequency of Communication with Friends and Fami ly 0 01/14/2024 Financial Resource Strain Answer Date R ecorded Difficulty of Paying Living Expenses 3 01/14/2024 Difficulty of Paying Living Expenses Not on file 01/14/2024 Food Insecurity Answer Date Recorded Worried About Running Out of Food in the Last Ye ar 1 01/14/2024 Transportation Needs Answer Date Record ed Lack of Transportation (Medical) 1 01/14/2024 Housing Stability Answer Date Recorded Unable to Pay for Housing in the Last Year 1 01/14/2024 Sex and Gender Information Value Date Recorded Sex Assigned at Not on file Gender Identity Not on file Sexual Orientation Not on file Obstetrics History Last Filed Vital Signs Vital Sign Reading Time Taken Comments Blood Pressure 117/68 02/09/2024 10:14 AM CDT Pulse 89 02/09/2024 10:14 AM CDT Temperature 36.8 ??C (98.2 ??F) 01/15/2024 5:26 PM CD T Respiratory Rate 20 01/15/2024 5:26 PM CDT Oxygen Saturation 100% 02/09/2024 10:14 AM CDT Inhaled Oxygen Concentration - - Weight 141.1 kg (311 lb) 01/15/2024 4:38 AM CDT Height 182.9 cm (6') 01/14/2024 11:16 AM CDT Body Mass Index 42.18 01/14/2024 11:16 AM CDT Plan of Treatment Upcoming Encounters Date Type Department Care Team (Late st Contact Info) Description 05/02/2024 8:00 AM CDT Office Visit [facility] [place] [address] [place] [address] Amira Vega NP [address] [place] [address] Health Maintenance Due Date Last Done Comments Pneumococcal series for age 65+ (1 of 2 - PCV) 1963 Zoster (shingles) series for age 50+ (1 of 2) 2007 AAA screening age 65-74 2022 01/07/2019, 02/19 COVID-19 vaccine series (2 - 2022- season) 2023 12/09/2020 Medicare Wellness for age 65+ 03/03/2024 03/03/2023 Influenza for age 65+ 05/19/2024 BMI (ht and wt on same day) for age 18+ 12/20/2024 12/21/2023, 10/24/2023, 03/03/2023, Additional history exists Depression screening for age 12+ 12/31/2024 01/01/2024, 08/16/2023, 08/15/2023, Additional history exists Colonoscopy through age 75 03/28/202703/28, 06/05/2018, 03/17/2008 (Completed outside of [facility]) Lipids for age 45-75 02/28/2028 02/27/2023, 03/01/2021, 07/06/2020, Additional history exists Tetanus booster 10/03/2033 10/03/2023, 05/13/2013 Hepatitis C screening for ag e 18-79 Completed 09/23/2016 Tdap Completed 10/03/2023, 05/13/2013 Medical Devices Implanted Type Area Mainspring Former Brace End Device Identifier Shelf Expiration Date Model / Serial / Lot Mesh Ventral 6in Ventral[address] St W/Echo Ps Cir - [id number] Implanted:Qty: 1 on 08/06/2018 by Chavez Trujillo DO at [facility] N/A: Abdomen [employer] 04/14/2020 [id number] / / [id number] Triathlon Posterior Stabilized Femoral #6 Rt Ps Implanted:Qty: 1 on 09/08/2020 by Jose Armando Vega MD at [facility] Right: Knee [employer] 07/09/2024 [id number] / / [id number] Triathlon Tritanium Symmetric Patella S36mm 10mm Implanted:Qty: 1 on 09/08/2020 by Jose Armando Vega MD at [facility] Right: Knee [employer] 02/05/2024 [id number] / / [id number] Tri[employer]lon Tritanium Tibial Component #5 Implanted:Qty: 1 on 09/08/2020 by Jose Armando Vega MD at [facility] Right: Knee [employer] 04/04/2025 [id number] / / [id number] Triathlon X3 Tibial Bearing Insert Ps 5 9mm Implanted:Qty: 1 on 09/08/2020 by Jose Armando Vega MD at [facility] Right: Knee [employer] 12/04/2023 5532-G-[id number] / / [id number] - [id number], Triathlon X3 Tibial Bearing Insert-Ps Implanted:Qty: 1 on 12/16/2020 by David Story MD at [facility] Right: Knee [employer] 09/25/2024 [id number]-G-[id number] / / [id number] Procedures Procedure Name Priority Date/Time Associated Diagnosis Comments C-REACTIVE PROTEIN Routine 02/07/2024 12 :25 PM CDT CBC WITH AUTO DIFFERENTIAL Routine 02/07/2024 12:25 PM CDT CREATININE Routine 02/07/2024 12:25 PM CDT AST (SGOT) Routine 02/07/2024 12:25 PM CDT PLATELET COUNT Routine 02/07/2024 12:25 PM CDT CBC WITH AUTO DIFFERENTIAL Routine 02/07/2024 12:25 PM CDT US RENAL BILATERAL Routine 01/15/2024 12 :17 PM CDT HEMOGLOBIN Early AM 01/15/2024 5:59 AM CDT WHITE BLOOD COUNT Early AM 01/15/2024 5:5 9 AM CDT MAGNESIUM Early AM 01/15/2024 5:59 AM CDT SODIUM Early AM 01/15/2024 5:59 AM CDT POTASSIUM Early AM 01/15/2024 5:59 AM CDT CREATININE Early AM 01/15/2024 5:59 AM CDT BODY FLUID CELL COUNT/DIF STAT 01/14/2024 1:27 PM CDT BODY FLUID CULTURE,STAIN (AEROBIC) STAT 01/14/2024 1:27 PM CDT CRYSTAL ID BODY FLUID NO URINE STAT 01/14/2024 1:27 PM CDT XR KNEE 3 VIEWS RIGHT STAT 01/14/2024 12:14 PM CDT CBC WITH AUTO DIFFERENTIAL STAT 01/14/2024 12:04 PM CDT C-REACTIVE PROTEIN STAT 01/14/2024 12 :04 PM CDT SEDIMENTATION RATE STAT 01/14/2024 12 :04 PM CDT BASIC METABOLIC PANEL STAT 01/14/2024 12:04 PM CDT CBC WITH AUTO DIFFERENTIAL STAT 01/14/2024 12:04 PM CDT ASPIRIN THERAPY EFFECT HCT/PLT Timed 01/12/2024 9:24 AM CDT Antiplatelet or antithrombotic long-term use ASPIRIN THERAPY EFFECT TEST Timed 01/12/2024 9:24 AM CDT Antiplatelet or antithrombotic long-term use ASPIRIN THERAPY EFFECT Today 01/12/2024 9:24 AM CDT Antiplatelet or antithrombotic long-term use P2Y12 INHIBITION Today 01/12/2024 9:24 AM CDT Antiplatelet or antithrombotic long-term use SCAN-OPERATIVE/PROCED URE REPORT 12/28/2023 12:00 AM CDT URINE ALBUMIN TO CREATININE RATIO, RANDOM Routine 12/21/2023 8:43 AM CDT Type 2 diabetes mellitus without complication, without long-term current use of insulin (HC) CBC WITH AUTO DIFFERENTIAL Routine 12/21/2023 8:33 AM CDT Thrombocytopenia (HC) Microcytic anemia PROTIME-INR Routine 12/21/2023 8:33 AM CDT Thrombocytopenia (HC) COMP METABOLIC PANEL Routine 12/21/2023 8:33 AM CDT Brain aneurysm IRON PLUS IRON BINDING CAP Routine 12/21/2023 8:33 AM CDT Thrombocytopenia (HC) Microcytic anemia FERRITIN Routine 12/21/2023 8:33 AM CDT Thrombocytopenia (HC) Microcytic anemia CBC WITH AUTO DIFFERENTIAL Routine 12/21/2023 8:33 AM CDT Thrombocytopenia (HC) Microcytic anemia HEMOGLOBIN A1C Routine 12/21/2023 8:33 AM CDT Type 2 diabetes mellitus without complication, without long-term current use of insulin (HC) US VENOUS LOWER EXTREMITY LEFT STAT 12/03/2023 2:25 PM CDT URINE CULTURE CATALINA 12/01/2023 10:21 AM CDT URINALYSIS MICROSCOPIC STAT 12/01/2023 10:21 AM CDT UA W/ SEDIMENT EXAM REFLEXED PER CRITERIA STAT 12/01/2023 10:21 AM CDT CBC WITH AUTO DIFFERENTIAL STAT 12/01/2023 9:43 AM CDT PRO-BNP STAT 12/01/2023 9:43 AM CDT BASIC METABOLIC PANEL STAT 12/01/2023 9:43 AM CDT CBC WITH AUTO DIFFERENTIAL STAT 12/01/2023 9:43 AM CDT EKG 12 LEAD STAT 12/01/2023 9:[address] ANGIO HEAD Routine 11/27/2023 8:58 AM CDT Cerebral aneurysm CREATININE,ISTAT Routine 11/27/2023 7:41 AM CDT XR CHEST 2 VIEWS PA AND LATERAL Routine 11/20/2023 3:28 PM PIANO TECHNICIAN Chronic cough LIPID PANEL W REFLEX MEASURED LDL Today 02/27/2023 10:06 AM CDT Mixed hyperlipidemia COLONOSCOPY 03/28/2022 7:[address] ABDOMEN PELVIS WO Routine 01/07/2019 11:51 AM CDT Ventral hernia without obstruction or gangrene ANTI HCV Routine 09/23/2016 8:24 AM PIANO TECHNICIAN Need for hepatitis C screening test from Last 3 Months or Most Recently Relevant to Health Maintenance Results * (ABNORMAL) CBC WITH AUTO DIFFERENTIAL (02/07/2024 12:25 PM CDT) Only the most recent of4 resultswithin the time period is included. WHITE BLOOD COUNT 5.5 4.5 - 11.0 thou/cu mm 02/07/2024 1:19 PM CDT [facility] RED BLOOD COUNT 2.74(L) 4.30 - 5.90 mil/cu mm 02/07/2024 1:19 PM [facility] HEMOGLOBIN 7.8(L) 13.5 - 17.5 g/dL 02/07/2024 1:19 PM [facility] HEMATOCRIT 24.9(L) 37.0 - 53.0 % 02/07/2024 1:19 PM [facility] MCV 91 80 - 100 fL 02/07/2024 1:19 PM [facility] MCH 28.5 26.0 - 34.0 pg 02/07/2024 1:19 PM [facility] MCHC 31.3(L) 32.0 - 36.0 g/dL 02/07/2024 1:19 PM [facility] RDW 18.6(H) 11.5 - 15.5 % 02/07/2024 1:19 PM [facility] PLATELET COUNT 157 140 - 440 thou/cu mm 02/07/2024 1:19 PM [facility] MPV 8.8 6.5 - 11.0 fL 02/07/2024 1:19 PM [facility] % NEUT 70.2 % 02/07/2024 1:19 PM [facility] % LYMPH 13.0 % 02/07/2024 1:19 PM [facility] % MONO 9.4 % 02/07/2024 1:19 PM [facility] % EOS 7.2 % 02/07/2024 1:19 PM [facility] % BASO 0.2 % 02/07/2024 1:19 PM [facility] ABSOLUTE NEUTROPHILS 3.9 1.7 - 7.0 thou/cu mm 02/07/2024 1:19 PM [facility] ABSOLUTE LYMPHOCYTES 0.7(L) 0.9 - 2.9 thou/cu mm 02/07/2024 1:19 PM [facility] ABSOLUTE MONOCYTES 0.5 <0.9 thou/cu mm 02/07/2024 1:19 PM CDT [facility] ABSOLUTE EOSINOPHILS 0.4 <0.5 thou/cu mm 02/07/2024 1:19 PM CDT [facility] ABSOLUTE BASOPHILS 0.0 <0.3 thou/cu mm 02/07/2024 1:19 PM CDT [facility] Blood BLOOD SPECIMEN / Unknown Client Collect / Unknown 02/07/2024 12:25 PM CDT 02/07/2024 1:09 PM CDT Urbano Johnson MD HEMATOLOGY [facility] [address] [place] [address] * PLATELET COUNT (02/07/2024 12:25 PM CDT) PLATELET COUNT 157 140 - 440 thou/cu mm 02/07/2024 1:19 PM CDT [facility] MPV 8.8 6.5 - 11.0 fL 02/07/2024 1:19 PM CDT [facility] Blood BLOOD SPECIMEN / Unknown Client Collect / Unknown 02/07/2024 12:25 PM CDT 02/07/2024 1:09 PM CDT Urbano Johnson MD HEMATOLOGY [facility] [address] [place] [address] * CREATININE (02/07/2024 12:25 PM CDT) Only the most recent of2 resultswithin the time period is included. eGFR >90 >90 mL/min/1.7 3m2 02/07/2024 1:23 PM CDT [facility] Comment:As of 2021, eG FR is calculated by the CKD-EPI creatinine equation without race adjustment. ??eGFR can be influenced by muscle mass, exercise, and diet. ??The reported eGFR is an estimation only and is only applicable if the renal function is stable. CREATININE 0.79 0.70 - 1.20 mg/dL 02/07/2024 1:23 PM CDT [facility] Blood BLOOD SPECIMEN / Unknown Client Collect / Unknown 02/07/2024 12:25 PM CDT 02/07/2024 1:09 PM CDT Urbano Johnson MD CHEMISTRY Performing Organization Address City/[facility]/ZIP Co de Phone Number [facility] [address] [place] [address] * (ABNORMAL) C-REACTIVE PROTEIN (02/07/2024 12:25 PM CDT) Only the most recent of2 resultswithin the time period is included. C-REACTIVE PROTEIN 2.9(H) <0.5 mg/dL 02/07/2024 1:38 PM CDT [facility] Blood BLOOD SPECIMEN / Unknown Client Collect / Unknown 02/07/2024 12:25 PM CDT 02/07/2024 1:14 PM CDT Urbano Johnson MD CHEMISTRY Performing Organization Address City/[facility]/ZIP Co de Phone Number [facility] [address] [place] [address] * AST (SGOT) (02/07/2024 12:25 PM CDT) AST (SGOT) 25 10 - 50 IU/L 02/07/2024 1:23 PM CDT [facility] Blood BLOOD SPECIMEN / Unknown Client Collect / Unknown 02/07/2024 12:25 PM CDT 02/07/2024 1:09 PM CDT Urbano Johnson MD CHEMISTRY Performing Organization Address City/[facility]/ZIP Co de Phone Number [facility] [address] [place] [address] * (IA) US RENAL BILATERAL (01/15/2024 12:17 PM CDT) Anatomical Region Laterality Modality Abdomen, KIDNEYS Ultrasound 01/15/2024 12:3 0 PM CDT Impressions 01/15/2024 12:30 PM CDT 1. Suboptimal exam due to the patient`s large body habitus and inability to roll into an optimal imaging position 2. Kidneys are normal in size and echogenicity with moderately prominent hydronephrosis and moderate distention of the bladder. Dictated by Cassidy Dotson MD @ 01/15/2024 12:30:05 PM (Electronically Signed) Narrative 01/15/2024 12:30 PM CDT For Patients: ??As a result of the Cures Act, medical imaging exams and procedure reports are released immediately into your electronic medical record. ??You may view this report before your referring provider. ??If you have questions, please contact your health [...] bladder mass. Ureteral jets were not visualized. Procedure Note Eliu Dotson MD - 01/15/2024 For Patients: As a result of the Cures Act, medical imagingexams and procedure reports are released immediately into your electronicmedical record. You may view this report before your referring provider.If you have questions, please contact your health care provider. INDICATION: Renal failure TECHNIQUE: Ultrasound renal bilateral. Laird-scale and color Doppler sonographicimages were acquired of the kidneys and urinary bladder. COMPARISON: None FINDINGS: Right kidney: 12.4 x 6.5 x 6.6 cm. Normal echotexture and cortex. Moderatehydronephrosis. Left kidney: 12.6 x 6.9 x 6.9 cm. Normal echotexture and cortex. Moderatehydronephrosis. Bladder: Bladder is distended. No wall thickening or bladder mass.Ureteral jets were not visualized. IMPRESSION: 1. Suboptimal exam due to the patient`s large body habitus and inabilityto roll into an optimal imaging position 2. Kidneys are normal in size and echogenicity with moderately prominenthydronephrosis and moderate distention of the bladder. Dictated by Cassidy Dotson MD @ 01/15/2024 12:30:05 PM (Electronically Signed) Isidro Hilario DO US * WHITE BLOOD COUNT (01/15/2024 5:59 AM CDT) WHITE BLOOD COUNT 9.7 4.5 - 11.0 thou/cu mm 01/15/2024 6:33 AM CDT [facility] Blood BLOOD SPECIMEN / Unknown Venipuncture / Unknown 01/15/2024 5:59 AM CDT 01/15/2024 6:25 AM CDT Lana Soni NP HEMATOLOGY Performing Organization Address City/[facility]/ZIP Co de Phone Number [facility] [address] [place] [address] * (ABNORMAL) HEMOGLOBIN (01/15/2024 5:59 AM CDT) HEMOGLOBIN 9.3(L) 13.5 - 17.5 g/dL 01/15/2024 6:33 AM CDT [facility] MCV 84 80 - 100 fL 01/15/2024 6:33 AM CDT [facility] Blood BLOOD SPECIMEN / Unknown Venipuncture / Unknown 01/15/2024 5:59 AM CDT 01/15/2024 6:25 AM CDT Lana Soni NP HEMATOLOGY [facility] [address] [place] [address] * (ABNORMAL) SODIUM (01/15/2024 5:59 AM CDT) SODIUM 133(L) 136 - 145 mmol/L 01/15/2024 6:48 AM CDT [facility] Blood BLOOD SPECIMEN / Unknown Venipuncture / Unknown 01/15/2024 5:59 AM CDT 01/15/2024 6:25 AM CDT Lana Soni NP CHEMISTRY Performing Organization Address [facility] Co de Phone Number [facility] [address] [place] [address] * POTASSIUM (01/15/2024 5:59 AM CDT) POTASSIUM 3.5 3.5 - 5.1 mmol/L 01/15/2024 6:48 AM CDT [facility] Blood BLOOD SPECIMEN / Unknown Venipuncture / Unknown 01/15/2024 5:59 AM CDT 01/15/2024 6:25 AM CDT Lana Soni NP CHEMISTRY Performing Organization Address [facility] Phone Number [facility] [address] [place] [address] * MAGNESIUM (01/15/2024 5:59 AM CDT) MAGNESIUM 1.7 1.6 - 2.4 mg/dL 01/15/2024 6:48 AM CDT [facility] Blood BLOOD SPECIMEN / Unknown Venipuncture / Unknown 01/15/2024 5:59 AM CDT 01/15/2024 6:25 AM CDT Lana Soni NP CHEMISTRY Performing Organization Address [facility] de Phone Number [facility] [address] [place] [address] * (ABNORMAL) BODY FLUID CULTURE,STAIN (AEROBIC) (01/14/2024 1:27 PM CDT) CULTURE RESULT(A) 01/20/2024 11:25 AM CDT [facility] CULTURE 1+ Staphylococcus aureus 01/20/2024 11:25 AM CDT [facility] Comment:This isolate is pres umed to be clindamycin resistant based on detection of inducible clindamycin resistance. Clindamycin still may be effective in some patients. GRAM STAIN No organisms seen 024 11:25 AM CDT [facility] GRAM STAIN 4+ PMNs 01/20/2024 11:25 AM CDT [facility] GRAM STAIN No RBCs 01/20/2024 11:25 AM T [facility] GRAM STAIN Gram stain performed by [place], [place] 01/20/2024 11:25 AM T [facility] Body Fluid BODY FLUID SPECIMEN / Unknown Non-Blood / Unknown 01/14/2024 1:27 PM CDT 01/14/2024 1:32 PM CDT Narrative Organism Antibiotic Method Susceptibility Staphylococcus aureus OXACILLIN <=0.25: S Comment:Oxacillin desai sceptible should not be interpreted as penicillin or amoxicillin susceptible. Staphylococcus aureus CLINDAMYCIN R Staphylococcus aureus DOXYCYCLINE <=0.5: S Staphylococcus aureus CEFAZOLIN S Staphylococcus aureus TRIMETHOPRIM/SULF <=0.5/9.5: S Jerilyn Boyce MD MICROBIOLOGY [facility] [address] [place] [address], [facility] [address] [place] [address] * (ABNORMAL) BODY FLUID CELL COUNT/DIF (01/14/2024 1:27 PM CDT) BODY FLUID SOURCE Body Fluid 01/14/2024 3:07 PM CDT [facility] BODY FLUID COLOR Yellow 01/14/2024 3:07 PM CDT [facility] BODY FLUID CLARITY Cloudy 01/14/2024 3:07 PM T [facility] TOTAL NUCLEATED CELLS, BF 118,000 /cu mm 01/14/2024 3:07 PM T [facility] RED BLOOD COUNT, BODY FLUID 24,444 /cu mm 01/14/2024 3:07 PM T [facility] % NEUTROPHILS, BODY FLUID 71(H) 0 - 25 % 01/14/2024 3:07 PM CDT [facility] % LYMPHOCYTES, BODY FLUID 6 % 01/14/2024 3:07 PM CDT [facility] % MONO/MACRO, BODY FLUID 23 % 01/14/2024 3:07 PM CDT [facility] Body Fluid BODY FLUID SPECIMEN / Unknown Non-Blood / Unknown 01/14/2024 1:27 PM CDT 01/14/2024 1:37 PM CDT Narrative [facility] - 01/14/2024 3:07 PM CDT TO ORDER BODY FLUID CULTURES, USE; [id number] BODY FLUID CULTURE, STAIN Jerilyn Boyce MD BODY FLUID [facility] [address] [place] [address] * CRYSTAL ID BODY FLUID NO URINE (01/14/2024 1:27 PM CDT) MONOSODIUM URATES None Seen None Seen, Present, Not Present 01/15/2024 3:01 PM CDT [facility] CALCIUM PYROPHOSPHATES None Seen None Seen, Present, Not Present 01/15/2024 3:01 PM CDT [facility] OTHER CRYSTALS 01/15/2024 3:01 PM CDT [facility] SPECIMEN SOURCE right knee 01/15/2024 3:01 PM CDT [facility] Body Fluid BODY FLUID SPECIMEN / Unknown Non-Blood / Unknown 01/14/2024 1:27 PM CDT 01/14/2024 1:37 PM CDT Jerilyn Boyce MD BODY FLUID [facility] [address] [place] [address], [place] * XR KNEE 3 VIEWS RIGHT (01/14/2024 12:14 PM CDT) Anatomical Region Laterality Modality KNEES, KNEE R Digital Radiogra phy 01/14/2024 12:4 8 PM CDT Narrative 01/14/2024 12:48 PM CDT For Patients: ??As a result of the Cures Act, medical imaging exams and procedure reports are released immediately into your electronic medical record. ??You may view this report before your referring provider. ??If you have questions, please contact your health care provider. Indication: Knee pain. Technique: Right knee 3 views. Comparison: August 2023. Findings: No acute displaced fracture or malalignment. Infrapatellar and suprapatellar mild soft tissue swelling. Total knee arthroplasty. No imaging findings of arthroplasty associated malfunction. Small knee joint effusion. Stress shielding. Impression: Small knee joint effusion. Dictated by Grant Wang MD @ 01/14/2024 12:48:19 PM (Electronically Signed) Procedure Note Grant Wang MD - 01/14/2024 For Patients: As a result of the Cures Act, medical imagingexams and procedure reports are released immediately into your electronicmedical record. You may view this report before your referring provider.If you have questions, please contact your health care provider. Indication: Knee pain. Technique: Right knee 3 views. Comparison: August 2023. Findings: No acute displaced fracture or malalignment. Infrapatellar and suprapatellar mild soft tissue swelling. Total knee arthroplasty. No imaging findings of arthroplasty associatedmalfunction. Small knee joint effusion. Stress shielding. Impression: Small knee joint effusion. Dictated by Grant Wang MD @ 01/14/2024 12:48:19 PM (Electronically Signed) Jerilyn Boyce MD GENERAL IMAGI NG * (ABNORMAL) SEDIMENTATION RATE (01/14/2024 12:04 PM CDT) SEDIMENTATION RATE 83(H) <20 mm/hr 2023 12:28 PM CDT [facility] Blood BLOOD SPECIMEN / Unknown Butterfly / Unknown 01/14/2024 12:04 PM CDT 01/14/2024 12:11 PM CDT Jerilyn Boyce MD HEMATOLOGY [facility] [address] [place] [address] * (ABNORMAL) BASIC METABOLIC PANEL (01/14/2024 12:04 PM CDT) Only the most recent of2 resultswithin the time period is included. SODIUM 138 136 - 145 mmol/L 01/14/2024 12:32 PM T [facility] POTASSIUM 3.7 3.5 - 5.1 mmol/L 01/14/2024 12:32 PM [facility] CHLORIDE 105 98 - 107 mmol/L 01/14/2024 12:32 PM [facility] CO2,TOTAL 23 22 - 29 mmol/L 01/14/2024 12:32 PM [facility] ANION GAP 10 5 - 18 01/14/2024 12:32 PM [facility] GLUCOSE 110(H) 70 - 99 mg/dL 01/14/2024 12:32 PM [facility] CALCIUM 9.2 8.8 - 10.2 mg/dL 01/14/2024 12:32 PM [facility] BUN 23 8 - 23 mg/dL 01/14/2024 12:32 PM [facility] CREATININE 1.00 0.70 - 1.20 mg/dL 01/14/2024 12:32 PM [facility] BUN/CREAT RATIO 23(H) 10 - 20 12:32 PM [facility] eGFR 83(L) >90 mL/min/1.7 3m2 01/14/2024 12:32 PM [facility] Comment:As of 2021, eG FR is calculated by the CKD-EPI creatinine equation without race adjustment. ??eGFR can be influenced by muscle mass, exercise, and diet. ??The reported eGFR is an estimation only and is only applicable if the renal function is stable. Blood BLOOD SPECIMEN / Unknown Butterfly / Unknown 01/14/2024 12:04 PM CDT 01/14/2024 12:11 PM CDT Jerilyn Boyce MD CHEMISTRY [facility] [address] [place] [address] * (ABNORMAL) ASPIRIN THERAPY EFFECT HCT/PLT (01/12/2024 9:24 AM CDT) PLATELET COUNT 128(L) 140 - 440 thou/cu mm 01/12/2024 9:57 AM CDT [facility] Blood BLOOD SPECIMEN / Unknown Venipuncture / Unknown 01/12/2024 9:24 AM CDT 01/12/2024 9:52 AM CDT Albania Santos NP HEMATOLOGY Performing Organization Address [facility] Co de Phone Number [facility] [address] [place] [address], * (ABNORMAL) ASPIRIN THERAPY EFFECT TEST (01/12/2024 9:24 AM CDT) ASPIRIN 562(H) <550 ARU (Aspirin Reaction Units) 01/12/2024 10:01 AM CDT [facility] Comment:Platelet dysfunction consistent with aspirin has not been detected. PLATELET COUNT 128(L) 140 - 440 thou/cu mm 01/12/2024 10:01 AM CDT [facility] Blood BLOOD SPECIMEN / Unknown Venipuncture / Unknown 01/12/2024 9:24 AM CDT 01/12/2024 9:44 AM CDT Narrative [facility] - 01/12/2024 10:01 AM CDT Platelet aggregation studies are useful as a screening test only. Platelet aggregation results must be interpreted within the context of the patients clinical and pharmacological history. Albania Santos NP HEMATOLOGY Performing Organization Address City/[facility]/ZIP Co de Phone Number [facility] [address] [address], * (ABNORMAL) P2Y12 INHIBITION (01/12/2024 9:24 AM CDT) [facility] PLATELET COUNT 128(L) 140 - 440 thou/cu mm 01/12/2024 10:01 AM CDT [facility] P2Y12 REACTION UNITS 166 01/12/2024 10:01 AM CDT [facility] Comment: Reference Range: Individuals on P2Y12 inhibition therapy: ??<208 PRU PRU response seen in patients not on P2Y12 inhibitor medications (mean +/- 2SD): 180-376 PRU It is important to note that the reference range among cardiac patients not exposed to P2Y12 inhibitors is quite broad (180-376 PRU). ??Published studies suggest that achieving a value of <208 PRU for cardiology patients receiving anti-platelet therapy is associated with a lower risk of thrombotic events. There is currently no known optimal therapeutic target PRU values. ??PRU targets to assess drug withdrawal in pre-surgical patients have not been established. References: ?? 1. ?? Juan M M, Angiocar D, Terashadtein P, et al. Platelet Reactivity and Cardiovascular Outcomes after Percutaneous Coronary Intervention. Circulation. 2011;124:4494-5749. 2. ?? Maty Bragg, Isaiah Velasquez, Hans Fry, et al. Bleeding and stent thrombosis on [id number]: ??collaborative analysis on the role of platelet reactivity for risk stratification after percutaneous coronary intervention. ?? Heart Journal. 2015; 36:6559-5584. 3. ?? Maty Bragg, Kemar WALLACE, Leonila??daquan Velasquez, et al. Expert position paper on the role of platelet function testing in patients undergoing percutaneous coronary intervention. Heart Journal. 2014;35(4):209-215. HEMATOCRIT 33.1(L) 37.0 - 53.0 % 01/12/2024 10:01 AM CDT [facility] Blood BLOOD SPECIMEN / Unknown Venipuncture / Unknown 01/12/2024 9:24 AM CDT 01/12/2024 9:43 AM CDT Albania Santos DECAL TRANSFERRER SEND OUTS Performing Organization Address [facility]/ZIP Co de Phone Number [facility] [address] [place] [phone], * SCAN-OPERATIVE/PROCEDURE REPORT (12/28/2023 12:00 AM CDT) Scanner OTHER * (ABNORMAL) URINE ALBUMIN TO CREATININE RATIO, RANDOM (12/21/2023 8:43 AM CDT) ALB RAND URINE 482.0 mg/L 12/21/2023 8:26 PM CDT [facility] CREATININE,URIN E 1.60 g/L 12/21/2023 8:26 PM CDT [facility] ALBUMIN TO CREATININE RATIO,RAND UR 301.3(H) <30.0 mg/g creat 12/21/2023 8:26 PM CDT [facility] Urine URINE SPECIMEN / Unknown Non-Blood / Unknown 12/21/2023 8:43 AM CDT 12/21/2023 8:43 AM CDT Narrative [facility] - 12/21/2023 8:26 PM CDT If Albumin to Creatinine Ratio is elevated, consider the following: ? Elevations seen with incipient nephropathy associated ?? with diabetes mellitus or hypertension. Stress, exercise,hematuria, ?? and urinary tract infection may also produce elevated results. If clinically indicated, confirm with ?24 Hour Albumin to Creatinine Ratio. ?? Mary HOYT URINE Performing Organization Address [facility]/ZIP Co de Phone Number [facility] [address] [place] [address], [place] * (ABNORMAL) IRON PLUS IRON BINDING CAP (12/21/2023 8:33 AM CDT) IRON 49(L) 61 - 157 ug/dL 12/21/2023 6:17 PM CDT [facility] UIBC (UNSATURATED) 234 112 - 347 ug/dL 12/21/2023 6:17 PM CDT [facility] IRON BINDING CAPACITY 283 250 - 400 ug/dL 12/21/2023 6:17 PM CDT [facility] IRON,% SATURATION 17 14 - 50 % 12/21/2023 6:17 PM CDT [facility] Blood BLOOD SPECIMEN / Unknown Venipuncture / Unknown 12/21/2023 8:33 AM CDT 12/21/2023 8:36 AM CDT Mary HOYT CHEMISTRY Performing Organization Address [facility] de Phone Number [facility] [address] [place] [address], * (ABNORMAL) PROTIME-INR (12/21/2023 8:33 AM CDT) INR 1.3(H) <1.3 12/21/2023 11:39 AM CDT [facility] PROTIME 14.7(H) 10.3 - 12.3 sec 12/21/2023 11:39 AM CDT [facility] Blood BLOOD SPECIMEN / Unknown Venipuncture / Unknown 12/21/2023 8:33 AM CDT 12/21/2023 8:36 AM CDT Narrative [facility] - 12/21/2023 11:39 AM CDT ?Therapeutic Range 2.0-3.0 for most anticoagulated patients 2.5-3.5 or 4.0 for high risk patients The INR is only used for patients on stable oral anticoagulant therapy. It makes no significant contribution to the diagnosis or treatment of patients whose Protime is prolonged for other reasons. INR results are increased when heparin levels exceed 1.0 U/mL, which corresponds to an aPTT >125 seconds if the patient is on UFH. Mary HOYT HEMATOLOGY Performing Organization Address [facility] Co de Phone Number [facility] [address] [place] [id number], [place] * HEMOGLOBIN A1C MONITORING (POCT) (12/21/2023 8:33 AM CDT) Pathologist [facility] HEMOGLOBIN A1C MONITORING (POCT) 4.7 <=6.4 % 12/21/2023 8:45 AM CDT [facility] Blood BLOOD SPECIMEN / Unknown Venipuncture / Unknown 12/21/2023 8:33 AM CDT 12/21/2023 8:36 AM CDT Narrative [facility] - 12/21/2023 8:45 AM CDT ? (<=6.9%) ? Indicates good control ? (7.0% to 7.9%) ? Indicates fair control ? (>=8.0%) ? Indicates poor control ?? NOTE: ??These thresholds are guidelines and ?individual targets may vary. Falsely low levels may be seen with: Recent Transfusion, Recent Significant Blood Loss, Hemolytic Diseases, or Falsely elevated levels may be seen with: Untreated Anemias, Splenectomy ? Mary HOYT CHEMISTRY Performing Organization Address City/[facility]/ZIP Co de Phone Number [facility] [address] [place] [address], * FERRITIN (12/21/2023 8:33 AM CDT) Pathologist [facility] FERRITIN 46.1 30.0 - 400.0 ng/mL 12/21/2023 6:17 PM CDT [facility] Blood BLOOD SPECIMEN / Unknown Venipuncture / Unknown 12/21/2023 8:33 AM CDT 12/21/2023 8:36 AM CDT Mary HOYT CHEMISTRY [facility] [address] [place] [address], [place] * (ABNORMAL) COMP METABOLIC PANEL (12/21/2023 8:33 AM CDT) [facility] SODIUM 144 136 - 145 mmol/L 12/21/2023 6:17 PM [facility] POTASSIUM 4.0 3.5 - 5.1 mmol/L 12/21/2023 6:17 PM [facility] CHLORIDE 111(H) 98 - 107 mmol/L 12/21/2023 6:17 PM [facility] CO2,TOTAL 24 22 - 29 mmol/L 12/21/2023 6:17 PM T [facility] ANION GAP 9 5 - 18 12/21/2023 6:17 PM [facility] GLUCOSE 133(H) 70 - 99 mg/dL 12/21/2023 6:17 PM T [facility] CALCIUM 9.0 8.8 - 10.2 mg/dL 12/21/2023 6:17 PM [facility] BUN 14 8 - 23 mg/dL 12/21/2023 6:17 PM [facility] CREATININE 0.88 0.70 - 1.20 mg/dL 12/21/2023 6:17 PM [facility] BUN/CREAT RATIO 16 10 - 20 6:17 PM [facility] eGFR >90 >90 mL/min/1.7 3m2 12/21/2023 6:17 PM [facility] Comment:As of 2021, eG FR is calculated by the CKD-EPI creatinine equation without race adjustment. ??eGFR can be influenced by muscle mass, exercise, and diet. ??The reported eGFR is an estimation only and is only applicable if the renal function is stable. ALBUMIN 3.4(L) 4.0 - 4.9 g/dL 12/21/2023 6:17 PM T [facility] PROTEIN,TOTAL 6.6 6.0 - 8.0 g/dL 12/21/2023 6:17 PM [facility] BILIRUBIN,TOTAL 0.9 0.0 - 1.2 mg/dL 12/21/2023 6:17 PM CDT [facility] ALK PHOSPHATASE 107 40 - 129 IU/L 12/21/2023 6:17 PM CDT [facility] ALT (SGPT) 18 10 - 50 IU/L 12/21/2023 6:17 PM CDT [facility] AST (SGOT) 27 10 - 50 IU/L 12/21/2023 6:17 PM CDT [facility] Blood BLOOD SPECIMEN / Unknown Venipuncture / Unknown 12/21/2023 8:33 AM CDT 12/21/2023 8:36 AM CDT Mary HOYT CHEMISTRY [facility] [address] [place] [id number], [place] * US VENOUS LOWER EXTREMITY LEFT (12/03/2023 2:25 PM CDT) Anatomical Region Laterality Modality LEGS, LEG L, Abdomen Ultrasound 12/03/2023 2:59 PM CDT Impressions 12/03/2023 2:59 PM CDT No evidence of deep vein thrombosis within the left lower extremity. Noncompressibility of the left greater saphenous vein along the mid to distal portions which may represent superficial thrombus. Dictated by Aimee Berman MD @ 12/03/2023 2:59:50 PM (Electronically Signed) Narrative 12/03/2023 2:59 PM CDT For Patients: ??As a result of the Century Cures Act, medical imaging exams and procedure reports are released immediately into your electronic medical record. ??You may view this report before your referring provider. ??If you have questions, please contact your health care provider. INDICATION: Swelling TECHNIQUE: A compression venous ultrasound exam was performed of the left lower extremity using laird-scale imaging, color Doppler and spectral Doppler analysis. FINDINGS: Sonographic imaging of the left lower extremity demonstrates normal compressibility and color Doppler venous blood flow within the common femoral vein, deep femoral vein, and the proximal greater saphenous vein. Within the thigh, the femoral vein is patent and compressible. At a lower level, the popliteal and posterior tibial veins also show normal compressibility and color Doppler venous blood flow. Limited imaging of the contralateral groin demonstrates a normal spectral waveform and color Doppler venous blood flow within the right common femoral vein. Left peroneal vein is not visualized. Additionally there is noncompressibility of the greater saphenous vein along mid to distal portion which may represent thrombus. Procedure Note Aimee Berman MD - 12/03/2023 For Patients: As a result of the Cures Act, medical imagingexams and procedure reports are released immediately into your electronicmedical record. You may view this report before your referring provider.If you have questions, please contact your health care provider. INDICATION: Swelling TECHNIQUE: A compression venous ultrasound exam was performed of the left lowerextremity using laird-scale imaging, color Doppler and spectral Doppleranalysis. FINDINGS: Sonographic imaging of the left lower extremity demonstrates normalcompressibility and color Doppler venous blood flow within the commonfemoral vein, deep femoral vein, and the proximal greater saphenous vein.Within the thigh, the femoral vein is patent and compressible. At a lowerlevel, the popliteal and posterior tibial veins also show normalcompressibility and color Doppler venous blood flow. Limited imaging of the contralateral groin demonstrates a normal spectralwaveform and color Doppler venous blood flow within the right commonfemoral vein. Left peroneal vein is not visualized. Additionally there isnoncompressibility of the greater saphenous vein along mid to distalportion which may represent thrombus. IMPRESSION: No evidence of deep vein thrombosis within the left lower extremity.Noncompressibility of the left greater saphenous vein along the mid todistal portions which may represent superficial thrombus. Dictated by Aimee Berman MD @ 12/03/2023 2:59:50 PM (Electronically Signed) Mariel HOYT * (ABNORMAL) URINALYSIS MICROSCOPIC (12/01/2023 10:21 AM CDT) RBC >100(A) 0-2, None Seen /HPF 12/01/2023 10:33 AM CDT [facility] WBC >100(A) 0-2, 3-5, None Seen /HPF 12/01/2023 10:33 AM CDT [facility] BACTERIA Few None Seen, Rare, Few Bacteria/H PF 12/01/2023 10:33 AM CDT [facility] EPITHELIAL CELLS Few None Seen, Few Epi/HPF 12/01/2023 10:33 AM CDT [facility] Urine URINE SPECIMEN / Unknown Non-Blood / Unknown 12/01/2023 10:21 AM CDT 12/01/2023 10:24 AM CDT Marilyn Chavira MD URINE Performing Organization Address City/[facility]/ZIP Co de Phone Number [facility] [address] [place] [address] * URINE CULTURE (12/01/2023 10:21 AM CDT) CULTURE No growth (<1,000 CFU/mL) 12/02/2023 10:13 AM CDT [facility] Urine URINE SPECIMEN / Unknown Non-Blood / Unknown 12/01/2023 10:21 AM CDT 12/01/2023 10:24 AM CDT Marilyn Chavira MD MICROBIOLOGY [facility] [address] [place] [address], [place] * (ABNORMAL) UA W/ SEDIMENT EXAM REFLEXED PER CRITERIA (12/01/2023 10:21 AM CDT) COLOR Yellow Yellow Color 12/01/2023 10:32 AM CDT [facility] CLARITY Cloudy(A) Clear Clarity 12/01/2023 10:32 AM CDT [facility] SPECIFIC GRAVITY,URINE 1.025 1.010, 1.015, 1.020, 1.025 12/01/2023 10:32 AM CDT [facility] PH,URINE 6.0 6.0, 7.0, 8.0, 5.5, 6.5, 7.5, 8.5 12/01/2023 10:32 AM CDT [facility] UROBILINOGEN, QUALITATIVE Normal Normal EU/dl 12/01/2023 10:32 AM T [facility] PROTEIN, URINE 100(A) Negative mg/dL 12/01/2023 10:32 AM CDT [facility] GLUCOSE, URINE Negative Negative mg/dL 12/01/2023 10:32 AM T [facility] KETONES,URINE Negative Negative mg/dL 12/01/2023 10:32 AM T [facility] BILIRUBIN,URI NE Negative Negative 12/01/2023 10:32 AM T [facility] OCCULT BLOOD,URINE Large(A) Negative 12/01/2023 10:32 AM CDT [facility] NITRITE Negative Negative 12/01/2023 10:32 AM T [facility] LEUKOCYTE ESTERASE Moderate(A) Negative 12/01/2023 10:32 AM T [facility] Urine URINE SPECIMEN / Unknown Non-Blood / Unknown 12/01/2023 10:21 AM CDT 12/01/2023 10:24 AM CDT Marilyn Chavira MD URINE Performing Organization Address City/State/[facility] Co de Phone Number [facility] [address] [place] [address] * (ABNORMAL) PRO-BNP (12/01/2023 9:43 AM CDT) PRO-BNP 133(H) <125 pg/mL 12/01/2023 10:16 AM CDT [facility] Blood BLOOD SPECIMEN / Unknown Butterfly / Unknown 12/01/2023 9:43 AM CDT 12/01/2023 9:46 AM CDT Narrative [facility] - 12/01/2023 10:16 AM CDT The following cut-points have been suggested for the use of proBNP for the diagnostic evaluation of heart failure (HF) in patient with acute dyspnea. Patients with eGFR >= 60 Diagnosis (rule in CHF) ? <50 Years Old ?450 pg/mL 50 - 75 Years Old ?900 pg/mL >75 Years Old ? 1800 pg/mL Exclusion (rule out CHF) Age Independent ?300 pg/mL A cutoff of 1200 pg/mL for patients with an eGFR <60 yields a diagnostic sensitivity of 89% and specificity of 72% for acute congestive heart failure. ? Marilyn Chavira MD SEND OUTS Performing Organization Address [facility] de Phone Number [facility] [address] [place] [address] * EKG 12 LEAD (12/01/2023 9:34 AM CDT) Interpretation Normal sinus rhythm Cannot rule out Anterior infarct , age undetermined Abnormal ECG When compared with ECG of 07-NOV-2021 20:38, No significant change was found BEYOND NOW Ventricular Rate 76 BPM BEYOND NOW Atrial Rate 76 BPM BEYOND NOW P-R Interval 122 ms BEYOND NOW QRS Duration 104 ms BEYOND NOW QT 426 ms BEYOND NOW QTc 479 ms BEYOND NOW P Preston 35 degrees BEYOND NOW R Preston 4 degrees BEYOND NOW T Preston 52 degrees BEYOND NOW 12/01/2023 9:34 AM CDT 12/01/2023 11:12 AM CDT Marilyn Chavira MD EKG ORD Performing Organization Address [facility] de Phone Number BEYOND NOW [place], [place] * CT ANGIO HEAD (11/27/2023 8:58 AM CDT) Anatomical Region Laterality Modality HEAD, BRAIN Computed Tomogra phy 11/27/2023 9:21 AM CDT 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 The patient is scheduled for a consultation in our clinic on 12/04/2023. Jose Luis Alberto MD Neurointerventionalist [facility] [employer]: [phone] [email or web address] Please note that all CT scans at this facility use dose modulation, iterative reconstruction, and/or weight-based dosing when appropriate to reduce radiation dose to as low as reasonably achievable. Dictated by: Jose Luis Alberto MD @ 11/27/2023 09:21:33 (Electronically Signed) Narrative 11/27/2023 9:21 AM CDT For Patients: ??As a result of the Cures Act, medical imaging exams and procedure reports are released immediately into your electronic medical record. ??You may view this report before your referring provider. ??If you have questions, please contact your health care provider. INDICATION: I67.1 Cerebral aneurysm ICD-10-CM Cerebral aneurysm Cerebral aneurysm TECHNIQUE: CTA head with contrast bolus tracking, 3D angiographic rendering using maximum intensity projection (MIP) and images permanently archived. FINDINGS: There is minor intracranial atherosclerosis. There is no large vessel occlusion or significant intracranial stenosis. There is otherwise normal opacification of the intracranial vasculature. 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 The right A1 segment is hypoplastic, an anatomic variant. Procedure Note Jose Luis Alberto MD - 11/27/2023 For Patients: As a result of the Cures Act, medical imagingexams and procedure reports are released immediately into your electronicmedical record. You may view this report before your referring provider.If you have questions, please contact your health care provider. INDICATION: I67.1 Cerebral aneurysm ICD-10-CM Cerebral aneurysm Cerebral aneurysm TECHNIQUE: CTA head with contrast bolus tracking, 3D angiographic rendering usingmaximum intensity projection (MIP) and images permanently archived. FINDINGS: There is minor intracranial atherosclerosis. There is no large vessel occlusion or significant intracranial stenosis. There is otherwise normal opacification of the intracranial vasculature. 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 The right A1 segment is hypoplastic,an anatomic variant. IMPRESSION: ACOM aneurysm. The patient is scheduled for a consultation in our clinicon 12/04/2023. Jose Luis Alberto MD Neurointerventionalist [facility] Consult[facility] Radiologists [facility] [employer]: [phone] [email or web address] Please note that all CT scans at this facility use dose modulation,iterative reconstruction, and/or weight-based dosing when appropriate toreduce radiation dose to as low as reasonably achievable. Dictated by: Jose Luis Alberto MD @ 11/27/2023 09:21:33 (Electronically Signed) Jose Luis Alberto MD CT * CREATININE,ISTAT (11/27/2023 7:41 AM CDT) CREATININE, POCT 0.80 0.57 - 1.11 mg/dL 11/27/2023 8:44 AM CDT [facility] eGFR >90 >90 mL/min/1.7 3m2 11/27/2023 8:44 AM CDT [facility] Comment:As of 2021, eG FR is calculated by the CKD-EPI creatinine equation without race adjustment. eGFR can be influenced by muscle mass, exercise, and diet. The reported eGFR is an estimation only and is only applicable if the renal function is stable. Blood BLOOD SPECIMEN / Unknown 11/27/2023 7:41 AM CDT 11/27/2023 8:44 AM CDT Jose Luis Alberto MD CHEMISTRY [facility] [address] [place] [address] * XR CHEST 2 VIEWS PA AND LATERAL (11/20/2023 3:28 PM PIANO TECHNICIAN) Anatomical Region Laterality Modality CHEST, THORAX, Lung, HEART Compu zoraida Radiography Impressions 11/20/2023 3:59 PM PIANO TECHNICIAN No acute findings. Dictated by Grant Jim MD @ 11/20/2023 3:39:40 PM Signed by: Grant Jim MD @11/20/2023 3:39:40 PM (Electronic Signature) Narrative 11/20/2023 3:59 PM PIANO TECHNICIAN INDICATION: Chronic cough. TECHNIQUE: Chest 2 views. COMPARISON: 01/12/2023. FINDINGS: No infiltrate or edema. No effusion or pneumothorax. Discogenic spurring. Cardiac silhouette normal. Mary HOYT [facility] * LIPID PANEL W REFLEX MEASURED LDL (02/27/2023 10:06 AM CDT) CHOLESTEROL,TOTAL 148 100 - 199 mg/dL 03/03/2023 1:05 PM [facility] TRIGLYCERIDES 61 <150 mg/dL 03/03/2023 1:05 PM [facility] HDL CHOLESTEROL 47 >40 mg/dL 1:05 PM [facility] NON-HDL CHOLESTEROL 101 <145 mg/dl 03/03/2023 1:05 PM [facility] CHOL/HDL RATIO 3.15 <4.50 03/03/2023 1:05 PM [facility] LDL CHOLESTEROL 89 <=130 mg/dL 03/03/2023 1:05 PM [facility] VLDL CHOLESTEROL 12 <=30 mg/dL 03/03/2023 1:05 PM [facility] PROVIDER ORDERED STATUS RANDOM 03/03/2023 1:05 PM [facility] Blood BLOOD SPECIMEN / Unknown Venipuncture / Unknown 02/27/2023 10:06 AM CDT 02/27/2023 10:06 AM CDT Mary HOYT CHEMISTRY [facility] [address] [place] [address] * COLONOSCOPY (03/28/2022 7:27 AM CDT) 03/28/2022 7:27 AM CDT Narrative Transcriptions Chavez Trujillo, - 03/28/2022 11:27 AM CDT Patient Name: Osvaldo Zuniga Procedure Date: 03/28/2022 Gender: Male Date of : 1955 Admit Type: Ambulatory Procedure: Colonoscopy Proceduralist: Chavez Trujillo MD [facility] Indications/Pre-Op Diagnosis: Chronic diarrhea, Rectal bleeding Medications: Propofol per Anesthesia Procedure Description: The patient had risks, benefits and alternatives explained to andgave informed consent. The patient had a stable cardiopulmonary status and judged an adequate candidate for conscious sedation. The colonoscope was passed through the anus and advanced to thececum, identified by appendiceal orifice and ileocecal valve. Thecolonoscopy was performed without difficulty. The patient tolerated the procedure well. The quality of the bowel preparation was good. The ileocecal valve, appendiceal orifice, and rectum were photographed. Complications: No immediate complications. Estimated Blood Loss & Specimen: Estimated blood loss was minimal. Specimen collected - Yes and sent to Laboratory Findings: Diffuse moderate mucosal changes characterized by adherent blood, congestion (edema), erythema and friability were found in the rectum. Biopsies were taken with a hot forceps for histology. Verification of patient identification for the specimen was done. Estimated bloodloss was minimal. Coagulation for hemostasis using hot biopsy forceps was successful. Estimated blood loss was minimal. Multiple small and large-mouthed diverticula were found in thesigmoid colon. There was narrowing of the colon in association with the diverticular opening. Erythema was seen in association with the diverticular opening. Biopsies were taken with a cold forceps for histology. This was biopsied with a hot forceps for histology. Verification of patient identification for the specimen was done. Estimated blood loss was minimal. A 5 mm polyp was found in the ascending colon. The polyp was sessile. The polyp was removed with a hot snare. Resection and retrieval were complete. Verification of patient identification for the specimen was done. Estimated blood loss was minimal. A 5 mm polyp was found in the rectum. The polyp was sessile. Thepolyp was removed with a hot snare. Resection and retrieval were complete. Verification of patient identification for the specimen was done. Estimated blood loss was minimal. A 4 mm polyp was found in the descending colon. The polyp wassessile. The polyp was removed with a hot snare. Resection and retrieval were complete. Verification of patient identification for the specimen was done. Estimated blood loss was minimal. Impressions/Post-Op Diagnosis: - Diffuse moderate mucosal changes were found in the rectum secondaryto colitis. Biopsied. Treated with hot biopsy forceps. - Moderate diverticulosis in the sigmoid colon. There was narrowingof the colon in association with the diverticular opening. Erythema was seen in association with the diverticular opening. Biopsied. - One 5 mm polyp in the ascending colon, removed with a hot snare. Resected and retrieved. - One 5 mm polyp in the rectum, removed with a hot snare. Resectedand retrieved. - One 4 mm polyp in the descending colon, removed with a hot snare. Resected and retrieved. Recommendation: - Discharge patient to home. - Patient has a contact number available for emergencies. The signsand symptoms of potential delayed complications were discussed with the patient. Return to normal activities tomorrow. Written discharge instructions were provided to the patient. - High fiber diet. - Continue present medications. - Await pathology results. - Repeat colonoscopy in 3 - 5 years for surveillance based onpathology results. Moderate Sedation: Moderate (conscious) sedation was personally administered by an anesthesia professional. The following parameters were monitored:oxygen saturation, heart rate, blood pressure, and response to care. Chavez Trujillo MD 03/28/2022 11:27:44 AM This report has been signed electronically. Note Initiated On: 03/28/2022 7:27 AM Chavez Trujillo DO PROCEDURE ORD * CT ABDOMEN PELVIS WO (01/07/2019 11:51 AM CDT) Anatomical Region Laterality Modality Abdomen, Pelvis, AORTA, LIVER, SPLEEN Computed Tomography 01/07/2019 12:1 8 PM CDT Impressions 01/07/2019 2:11 PM CDT 1. There are postsurgical changes within the midline anterior abdominal wall related to prior hernia repair. There is no evidence for recurrent hernia, seroma, or hematoma. 2. Left hemicolonic diverticulosis without diverticulitis. 3. Nonspecific subtle increased attenuation of retroperitoneal fat at the level of the celiac axis and the superior mesenteric artery of uncertain etiology. 4. Tiny nonobstructive stone within the lower pole of each kidney. 5. New sclerotic region within the posterior right iliac bone with the suggestion of a lucency in this bone best appreciated on image 106 series 5 and also image 93 series 4. This could represent a healing fracture. The patient does not have a known malignancy and therefore a metastatic disease process would be very unlikely. Further imaging should be based on clinical grounds. Please note that all CT scans at this facility use dose modulation, iterative reconstruction, and/or weight-based dosing when appropriate to reduce radiation dose to as low as reasonably achievable. Dictated by Quintin Frausto MD @ Jan 07 2019 12:18PM Narrative 01/07/2019 2:11 PM CDT INDICATION: 63-year-old male. Ventral hernia without obstruction or gangrene. Diastasis of the rectus abdominus muscles. Laparoscopic ventral herniorrhaphy 08/06/2018. TECHNIQUE: Noncontrast CT of the abdomen and pelvis. COMPARISON: 02/19/2018. FINDINGS: Clear included lung bases. When compared to the previous CT, the patient has undergone surgical repair of a small ventral abdominal wall hernia. This is noted on image 98 series 2. There is no evidence for a recurrent hernia. No subcutaneous or intramuscular fluid collection. There is no bowel obstruction or ileus. No ascites or lymphadenopathy. Sigmoid diverticulosis without diverticulitis. The unenhanced liver and spleen are within normal limits. The pancreas is negative for masses or biliary ductal dilatation. The gallbladder is partly decompressed. Normal adrenal glands. 2 mm nonobstructing stone lower pole right kidney image 67 series 2 not seen previously. 1 mm nonobstructing stone lower pole left kidney image 69 series 2 unchanged. Small cyst medial left kidney, unchanged. Vascular calcification within a normal caliber abdominal aorta and iliac arteries. Normal inferior vena cava. Incidental note is made of minor upper abdominal retroperitoneal fat stranding at the level of the celiac axis and the SMA and, although quite subtle, this is new and of uncertain significance. No lymphadenopathy. No bowel obstruction or ileus. Normal appendix. The urinary bladder is largely decompressed. Mild prostatic enlargement. Minimal prostatic calcification. Normal seminal vesicles. Within the included skeleton, there is new sclerosis along the posteromedial right iliac wing. On the sagittal reconstructed image 106 series 5, there is a subtle fracture lucency. Please correlate for any history of trauma or fracture within the last several weeks to months. This could reflect a healing fracture in the proper clinical context. The remainder of the skeleton is unremarkable. The patient does not have a known malignancy. Recent normal prostate specific antigen 12/10/2018. Chavez Trujillo DO CT * ANTI HCV (09/23/2016 8:24 AM PIANO TECHNICIAN) HEPATITIS C ANTIBODY Non-Reacti ve Non-Reacti ve 09/23/2016 4:40 PM PIANO TECHNICIAN [facility] [employer] LAB[facility]AT[facility] Blood BLOOD SPECIMEN / Unknown Venipuncture / Unknown 09/23/2016 8:24 AM PIANO TECHNICIAN 09/23/2016 8:24 AM PIANO TECHNICIAN Narrative [facility] [employer] [facility] - 09/23/2016 4:40 PM PIANO TECHNICIAN Antibodies to HCV not detected; does not exclude the possibility of exposure to HCV. Mary HOYT SEND OUTS [facility] [employer] [facility] [address] [place] [address], [place] from Last 3 Months or Most Recently Relevant to Health Maintenance Advance Directives * DNR (Latest Code Status on File) Date Activated Date Inactivated Comments 01/14/2024 5:46 PM 01/15/2024 10:15 PM Question Answer Comments Code Status Discussion: Reviewed Preferences * Full Code Date Activated Date Inactivated Comments 03/28/2022 8:23 AM 03/28/2022 1:16 PM Question Answer Comments Code Status Discussion: Discussed * Partial Code Date Activated Date Inactivated Comments 11/08/2021 4:56 PM 11/10/2021 3:34 PM Question Answer Comments Cardio Resuscitation: No Restrictions Ventilation: No Intubation Drug Protocol: No Restrictions * Full Code Date Activated Date Inactivated Comments 11/08/2021 12:02 AM 11/08/2021 4:56 PM Question Answer Comments Code Status Discussion: Reviewed Preferences * Full Code Date Activated Date Inactivated Comments 12/14/2020 9:31 PM 12/18/2020 5:40 PM Question Answer Comments Code Status Discussion: Discussed Care Teams Agency Sales Director Relationship Specialty Start Date End Date Mary Ruggiero PA [address] [place] [address] PCP - General Physician Manufacturing Specialist 03/10/23 Emma Lisa CNS [address] [facility] [place] [address] Clinical Nurse Specialist Clinical Nurse Specialist 02/24/[address] [facility] [place] [address] Registered Dietitian Jack Setter 02/24/21 Osvaldo Guerrero, RN [address] [facility] [place] [address] Registered Nurse Registered Nurse 02/24/21 Simran Warner MD [address] [place] [address] Hematology and Oncology 02/28/22 Shonna Grant, DECAL TRANSFERRER [address] [place], [place] [id number] Hematology and Oncology 02/28/22
--- OUTSIDE RECORDS SUMMARY | 2024-02-12 18:03 | XMS_ITS | Encounter Summary ---
Author Organization [facility] Address [address] [place] [address] Care Team Providers Care Vibratory Pile Driver Name Role Phone Mary Ruggiero PA-C Primary Care Provider [phone] Reason for Visit * Auth/Cert (Routine) Specialty Diagnoses / Procedures Referred By Contac t Referred To Contact Med Surg Diagnoses Septic athritis of prosthetic joint Septic joint (H) Ortho Spine [address] [place] [address] Referral ID Status Reason Start Date Expiration Date Visits Re quested Visits Authorized [id number] 1 1 Encounter Details Date Type Department Care Team (Late st Contact Info) Description 01/17/2024 4:30 PM CDT - 01/17/2024 8:15 PM CDT Surgery [facility] PeriOP Services [address] [place] [address] Caleb Garcia MD [facility] [address], [address] [place] [address] RIGHT REVISION TOTAL KNEE ARTHROPLASTY Surgery Details Date/Time Status Location OR Service Patient Class Case Class Case Type Trauma Case? 01/17/24 4:30 PM Posted OR OR M 31 Orthopedics Inpatient NEST 5 - Semi-Urge nt (within 48hrs) Panel 1 Procedure LRB Anes Op Region Wound Class Comments RIGHT REVISION TOTAL KNEE ARTHROPLASTY Right Choice with Block Knee I-Clean WITH PLACEMENT OF ANTIBIOTIC SPACER Right Choice with Block Knee III-Contaminated Surgeon Surgeon Role Service Panel Albania Jackson PA-C Assisting Dye House Vat Worker Authorizat ion 1 Caleb Garcia MD Primary Orthopedics 1 Case Notes NEEDS IMPLANT SHEETBO reviewed/Billed per invoice and Epic prices (lower murdock) documented in this encounter Social History Tobacco [...] Sign Reading Time Taken Comments Blood Pressure 106/52 01/17/2024 8:15 PM CDT Pulse 92 01/17/2024 8:15 PM CDT Temperature 36.8 ??C (98.3 ??F) 01/17/2024 7:19 PM CD T Respiratory Rate 14 01/17/2024 8:15 PM CDT Oxygen Saturation 93% 01/17/2024 8:15 PM CDT Inhaled Oxygen Concentration - - Weight 138.3 kg (305 lb) 01/16/2024 5:32 AM CDT Height 182.9 cm (6') 01/16/2024 5:32 AM CDT Body Mass Index 42.5 01/16/2024 5:32 AM CDT documented in this encounter Discharge Summaries * Arik Ordoñez MD - 01/23/2024 8:24 AM CDT Images from the original note were not included. [facility] Hospitalist Discharge Summary Date of Admission: [...] Needed After Discharge Follow-up Appointments Follow Up ([facility]) Please call your urology team at [facility] to arrange for follow up appointment in [...] the number to their clinic.) Dr. Garcia's day care provider is Laurie Hernandes. Please contact her at [phone] to schedule an appointment. Dr. Garcia sees patients at 2 clinic locations: [facility] [address] [place] [address] [facility] [address] , [address], [place] [address] Please call the on-call phone number [phone] during evenings, nights and weekends for any urgent needs. Prescription refills must be done during business hours by calling [phone]. Follow Up and recommended labs and tests Follow up with alf physician. The following labs/tests are recommended: weekly [...] Plavix and hyperlipidemia who was admitted to [facility] to the concern for right knee pain. Patient was later diagnosed with septic arthritis and is transferred to [facility] for orthopedic surgery evaluation and possible surgical intervention. Patient was started on IV vancomycin and had traumatic Crandall catheter insertion for urinary retention, patient has also developed OMAR in the past 24 hours before transfer. Patient has undergone right knee replacement in August 2020. [facility] for infected prosthetic knee [...] startedon vancomycin and ceftriaxone. Patient transferred to [facility] for further surgical intervention. Staph aureus right [...] x 2 yesterday, 10 mg today. Continue LOT WORKER Lyrica 75 mg p.o. twice daily. On [...] this will increase risk of infection Hold LOT WORKER clobetasol ointment Chronic normocytic anemia ~ 10.5 [...] Finding of large traumatic false passage. 16F northern arapaho tip crandall placed over wire with cystoscopic [...] Cr back to baseline on 01/21/24 Resumed LOT WORKER lisinopril, on 01/21/24 Holding PO furosemide 40 [...] Continue famotidine 10 mg daily twice daily, LOT WORKER doses as needed History of depression and anxiety: Continue LOT WORKER duloxetine 120 mg p.o. daily Continue LOT WORKER mirtazapine 30 mg at bedtime Essential hypertension: Resumed LOT WORKER lisinopril and furosemide on 01/21/24 as above. [...] Full Code Time Spent on this Encounter I, Arik Ordoñez MD, personally saw the patient today and spent greater than 30 minutes discharging this patient. Arik Ordoñez MD [facility] [address] [facility] [address] Physical Exam Vital Signs: Temp: 98.2 ??F (36.8 ??C) Temp src: Oral BP: (!) 142/65 Pulse: 75 Resp: 18 SpO2: 95 % O2 Device: None (Room air) Weight: 313 lbs 6.4 oz Awake, alert and oriented Right nee is wrapped Primary Care Physician Mary Ruggiero Discharge Orders Follow Up ([facility]) Please call your urology team at [facility] to arrange for follow up appointment in 2-4 weeks. Your catheter should be removed or exchanged by urology no later than 02/20/24. General info for SNF Length of Stay Estimate: Short Term Care: Estimated # of Days <30 Condition at Discharge: Stable Level of care:skilled Rehabilitation Potential: Fair Admission H&P remains valid and up-to-date: Yes Recent Chemotherapy: N/A Use Long Term Standing Orders: Yes Reason for your hospital [...] the number to their clinic.) Dr. Garcia's day care provider is Laurie Hernandes. Please contact her at [phone] to schedule an appointment. Dr. Garcia sees patients at 2 clinic locations: [facility] [employer] [address] [place] [address] [facility] [address] , [address], [place] [address] Please call the on-call phone number [phone] during evenings, nights and weekends for any urgent needs. Prescription refills must be done during business hours by calling [phone]. Mantoux instructions Give two-step Mantoux (PPD) Per [...] recommended labs and tests Follow up with alf physician. The following labs/tests are recommended: weekly [...] Status 01/17/2024184101/22/2024 2246 Anaerobic Bacterial Culture Routine [[id number]] Tissue from Knee, Right Preliminary result Component Value Culture No anaerobic organisms isolated after 5 days [P] 01/17/2024184101/22/2024 2231 Anaerobic Bacterial Culture Routine [[id number]] Synovial fluid from Knee, Right Preliminary result Component Value Culture No anaerobic organisms isolated after 5 days [P] 01/17/2024184101/20/2024 0253 Tissue Aerobic Bacterial Culture Routine [[id number]] (Abnormal) Tissue from Knee, Right Final result [...] 1135 Synovial fluid Aerobic Bacterial Culture Routine [[id number]] (Abnormal) Synovial fluid from Knee, Right Final [...] agents. 01/17/2024184001/22/2024 2246 Anaerobic Bacterial Culture Routine [[id number]] Tissue from Knee, Right Preliminary result Component Value Culture No anaerobic organisms isolated after 5 days [P] 01/17/2024 18401/22/2024 2231 Anaerobic Bacterial Culture Routine [[id number]] Tissue from Knee, Right Preliminary result Component Value Culture No anaerobic organisms isolated after 5 days [P] 01/17/2024 18401/22/2024 2316 Anaerobic Bacterial Culture Routine [[id number]] Tissue from Knee, Right Preliminary result Component Value Culture No anaerobic organisms isolated after 5 days [P] 01/17/2024 1841 01/22/2024 2302 Anaerobic Bacterial Culture Routine [[id number]] Tissue from Knee, Right Preliminary result Component Value Culture No anaerobic organisms isolated after 5 days [P] 01/17/2024 18401/22/2024 0743 Tissue Aerobic Bacterial Culture Routine [[id number]] (Abnormal) Tissue from Knee, Right Final result Component Value Culture 1+ Staphylococcus aureus Susceptibilities done on previous cultures 01/17/2024 18401/22/2024 0742 Tissue Aerobic Bacterial Culture Routine [[id number]] (Abnormal) Tissue from Knee, Right Final result Component Value Culture 1+ Staphylococcus aureus Susceptibilities done on previous cultures 01/17/2024 18401/22/2024 0742 Tissue Aerobic Bacterial Culture Routine [[id number]] (Abnormal) Tissue from Knee, Right Final result Component Value Culture 1+ Staphylococcus aureus Susceptibilities done on previous cultures 01/17/2024 18401/22/2024 0724 Tissue Aerobic Bacterial Culture Routine [[id number]] Tissue from Knee, Right Final result Component Value Culture No Growth 01/16/2024 1640 01/18/2024 0716 Urine Culture [[id number]] Urine, Crandall Catheter Final result Component Value Culture No Growth 01/16/2024 1409 01/21/2024 1731 Blood Culture Hand, Left [[id number]] Blood from Hand, Left Final result Component Value Culture No Growth 01/16/2024 1400 01/21/2024 1731 Blood Culture Hand, Left [[id number]] Blood from Hand, Left Final result Component Value Culture No Growth 01/16/2024 1037 01/16/2024 1432 MRSA MSSA PCR, Nasal Swab [[id number]] Swab from Nares, Bilateral Final result Component [...] XR KNEE PORT RIGHT 1/2 VIEWS LOCATION: [facility] DATE: 01/17/2024 INDICATION: Post Op Total [...] cardiomediastinal silhouette. SVITLANA ASCENCIO MD SYSTEM ID: [id number] CT Abdomen Pelvis w/o Contrast Narrative EXAM: CT ABDOMEN AND PELVIS WITHOUT CONTRAST LOCATION: [facility] DATE: 01/20/2024 INDICATION: Following for hydronephrosis, [...] and CRP weekly and fax results to [facility]. Associated Diagnoses: Staphylococcal arthritis of right [...] calcitonin, salmon, (MIACALCIN) 200 UNIT/ACT nasal spray Whitakers 1 spray into one nostril alternatingnostrils daily [...] calcitonin, salmon, (MIACALCIN) 200 UNIT/ACT nasal spray Whitakers 1 spray into one nostril alternating nostrils [...] Discharge Note Discharge Date: 01/23/2024 Discharge Disposition: Alf Facility, Transitional Care Discharge Services: None Discharge DME: None Discharge Transportation: family or friend will provide Private pay costs discussed: private room/amenity fees and transportation costs Does the patient's insurance plan have a 3 day qualifying hospital stay waiver? No PAS Confirmation Code: [id number] Patient/family educated on Medicare website which has current facility and service quality ratings:no Education Provided on the Discharge Plan: Yes Persons Notified of Discharge Plans: Patient, spouse, TCU, and [facility] staff Patient/Family in Agreement with the Plan: yes Handoff Referral Completed: No Additional Information: Agricultural And Forestry Supervisor was made aware the provider placed discharge orders. Agricultural And Forestry Supervisor sent them to [facility]. Write stopped by the patient and patient notified the sports book writer they would like to go in a shared room. Agricultural And Forestry Supervisor set up a W/C transport between [phone]. Agricultural And Forestry Supervisor completed PAS and sent over script to [facility] [phone]. PAS-RR D: Per [facility] regulation, FRANKO completed and submitted PAS-RR to [place] [employer] Direct Connect via the Senior LinkAge Line. PAS-RR confirmation # is : [id number] I: SW spoke with patient and they are aware a PAS-RR has been submitted. FRANKO reviewed with patient that they may be contacted for a follow up appointment within 10 days of hospital discharge if their SNF stay is < 30 days. Contact information for [facility] was also provided. A: patient verbalized understanding. P: Further questions may be directed to [facility] at # , option #4 for PAS-RR staff. Agricultural And Forestry Supervisor updated patient, Spouse, TCU, and [facility] nursing staff on discharge plans. Patient will discharge from [facility] to [facility] with W/C transport at [phone]. Please refer to progress notes for further details. Rick Rogers [facility] Social Work * Milli Jackson RN - 01/22/2024 [...] analgesics: Yes Does patient have an identified track and field coach: Yes Has goal D/C date and [...] to all referrals due to bariatric needs. Agricultural And Forestry Supervisor followed up with the patient and let him know he will send referrals to facilities around the area of [facility], and [place]. Agricultural And Forestry Supervisor called the patient's spouse, Rosibel ) and updated her. Rosibel requested, as per previous note, the patient not go to [facility], [facility]. Patient was accepted at [facility]. Agricultural And Forestry Supervisor spoke with Fani who stated they would be able to take the patient tomorrow as early at 1100. Agricultural And Forestry Supervisor will update the patinet. [employer] [facility] Social Work * Arik Ordoñez MD - 01/22/2024 2:17 PM CDT [facility] Medicine Progress Note - Hospitalist Service Date of Admission: 01/15/2024 Assessment & Plan Osvaldo Zuniga is a 68 year old male with past medical history significant for obesity, type 2 diabetes mellitus, essential hypertension, depression, anxiety, prostate cancer, incidental finding of brain aneurysm on Plavix and hyperlipidemia who was admitted to [facility] to the concern for right knee pain. Patient was later diagnosed with septic arthritis and is transferred to [facility] for orthopedic surgery evaluation and possible surgical intervention. Patient was started on IV vancomycin and had traumatic Crandall catheter insertion for urinary retention, patient has also developed OMAR in the past 24 hours before transfer. Patient has undergone right knee replacement in August 2020. [facility] for infected prosthetic knee [...] startedon vancomycin and ceftriaxone. Patient transferred to [facility] for further surgical intervention. Staph aureus right [...] x 2 yesterday, 10 mg today. Continue LOT WORKER Lyrica 75 mg p.o. twice daily. On [...] this will increase risk of infection Hold LOT WORKER clobetasol ointment. Chronic normocytic anemia ~ 10.5 [...] Finding of large traumatic false passage. 16F northern arapaho tip crandall placed over wire with cystoscopic [...] Cr back to baseline on 01/21/24 Resumed LOT WORKER lisinopril, on 01/21/24 Holding PO furosemide 40 [...] Continue famotidine 10 mg daily twice daily, LOT WORKER doses as needed History of depression and anxiety: Continue LOT WORKER duloxetine 120 mg p.o. daily Continue LOT WORKER mirtazapine 30 mg at bedtime Essential hypertension: Resumed LOT WORKER lisinopril and furosemide on 01/21/24 as above. [...] Anticipated Tomorrow Arik Ordoñez MD Hospitalist Service [facility] Securely message with [employer] (more info) Text page via [employer] Paging/Directory Interval History Having some expected right [...] RECORDS REVIEWED over the past 24 hours: Tarena Data I have personally reviewed the following [...] pay costs discussed: Not applicable Additional Information: Agricultural And Forestry Supervisor spoke to patient and Rosibel at bedside. Explained that [facility] have yet to respoond and that sports book writer does not anticipate that they will today. She asked if they are full then what and sports book writer explained that it would be helpful to have a few additional choices as back up. She will review list and update SW if needed. She said that she will not agree to sending him to [facility] or [place]. Rosibel would like to be updated via [...] Moody MD - 01/21/2024 8:11 AM CDT [facility] Hospitalist Progress Note Date of Service [...] Plavix and hyperlipidemia who was admitted to [facility] to the concern for right knee pain. Patient was later diagnosed with septic arthritis and is transferred to [facility] for orthopedic surgery evaluation and possible surgical intervention. Patient was started on IV vancomycin and had traumatic Crandall catheter insertion for urinary retention, patient has also developed OMAR in the past 24 hours before transfer. Assessment & Plan Patient has undergone right knee replacement in August 2020. [facility] for infected prosthetic knee [...] startedon vancomycin and ceftriaxone. Patient transferred to [facility] for further surgical intervention. Staph aureus right [...] x 2 yesterday, 10 mg today. Continue LOT WORKER Lyrica 75 mg p.o. twice daily. On [...] this will increase risk of infection Hold LOT WORKER clobetasol ointment. Chronic normocytic anemia ~ 10.5 [...] Finding of large traumatic false passage. 16F northern arapaho tip crandall placed over wire with cystoscopic [...] Cr back to baseline on 01/21/24 Resumed LOT WORKER lisinopril, on 01/21/24 Holding PO furosemide 40 [...] Continue famotidine 10 mg daily twice daily, LOT WORKER doses as needed History of depression and anxiety: Continue LOT WORKER duloxetine 120 mg p.o. daily Continue LOT WORKER mirtazapine 30 mg at bedtime Essential hypertension: Resumed LOT WORKER lisinopril and furosemide on 01/21/24 as above. [...] on 01/21/24 Susan Moody MD Hospitalist Service [facility] Securely message with the [employer] Console (learn more here) Text page via [employer] Paging/Directory -Data reviewed today: I reviewed all [...] Mervin Banegas PA-C 20 mL at 01/21/24 05 sodium chloride (PF) 0.9% PF flush 3 [...] CT ABDOMEN AND PELVIS WITHOUT CONTRAST LOCATION: [facility] DATE: 01/20/2024 INDICATION: Following for hydronephrosis, [...] Moody MD - 01/20/2024 5:52 PM CDT [facility] Hospitalist Progress Note Date of Service [...] Plavix and hyperlipidemia who was admitted to [facility] to the concern for right knee pain. Patient was later diagnosed with septic arthritis and is transferred to [facility] for orthopedic surgery evaluation and possible surgical intervention. Patient was started on IV vancomycin and had traumatic Crandall catheter insertion for urinary retention, patient has also developed OMAR in the past 24 hours before transfer. Assessment & Plan Patient has undergone right knee replacement in August 2020. Patient was [facility] for infected prosthetic [...] past few months, was recently evaluated by [facility] on Sunday 01/07. According to patient [...] and ceftriaxone. Patient is now transferred to [facility] for further surgical intervention. Of note patient [...] weeks postop Oxycodone for pain control Continue LOT WORKER Lyrica 75 mg p.o. twice daily On [...] this will increase risk of infection Hold LOT WORKER clobetasol ointment. Chronic normocytic anemia ~ 10.5 [...] Finding of large traumatic false passage. 16F northern arapaho tip crandall placed over wire with cystoscopic [...] (Discussed with nurse obtaining daily weights) Holding LOT WORKER lisinopril , furosemide, and Celebrex Vitals: 01/16/24 [...] Continue famotidine 10 mg daily twice daily, LOT WORKER doses as needed History of depression and anxiety: Continue LOT WORKER duloxetine 120 mg p.o. daily Continue LOT WORKER mirtazapine 30 mg at bedtime Essential hypertension: Holding LOT WORKER lisinopril and furosemide in context of OMAR, [...] on 01/19 Susan Moody MD Hospitalist Service [facility] Securely message with the setObject Console (learn more here) Text page via [employer] Paging/Directory -Data reviewed today: I reviewed all [...] Bedtime Albania Jackson PA-C 20 mg at 01/19/24 2139 Or famotidine (PEPCID) injection 20 mg 20 [...] tablet 1 tablet 1 tablet Oral BID Kalrie Rosenthal MD 1 tablet at 01/18/24 0904 [...] Karlie Rosenthal MD Data Recent Labs Lab 01/20/24 0633 [...] CT ABDOMEN AND PELVIS WITHOUT CONTRAST LOCATION: [facility] DATE: 01/20/2024 INDICATION: Following for hydronephrosis, [...] 01/20/2024 12:14 PM CDT Orthopedic Surgery Osvaldo Benjamin Nadia 01/20/2024 Admit Date: 01/15/2024 POD: 3 Days [...] all times. Activity Assistance: AX2 with mervin burleson. Skin/Wound: bilateral LE edema, scatted scabs and [...] Moody MD - 01/19/2024 3:14 PM CDT [facility] Hospitalist Progress Note Date of Service [...] Plavix and hyperlipidemia who was admitted to [facility] to the concern for right knee pain. Patient was later diagnosed with septic arthritis and is transferred to [facility] for orthopedic surgery evaluation and possible surgical intervention. Patient was started on IV vancomycin and had traumatic Crandall catheter insertion for urinary retention, patient has also developed OMAR in the past 24 hours before transfer. Assessment & Plan Patient has undergone right knee replacement in August 2020. Patient was [facility] to [facility] for infected prosthetic [...] past few months, was recently evaluated by [facility] orthopedics on Sunday 01/07. According to patient [...] and ceftriaxone. Patient is now transferred to [facility] for further surgical intervention. Of note patient [...] weeks postop Oxycodone for pain control Continue LOT WORKER Lyrica 75 mg p.o. twice daily On [...] this will increase risk of infection Hold LOT WORKER clobetasol ointment. Chronic normocytic anemia ~ 10.5 [...] Finding of large traumatic false passage. 16F northern arapaho tip crandall placed over wire with cystoscopic [...] on 01/19/24 Daily BMP, daily weights. Holding LOT WORKER lisinopril , furosemide and Celebrex Vitals: 01/16/24 [...] Continue famotidine 10 mg daily twice daily, LOT WORKER doses as needed History of depression and anxiety: Continue LOT WORKER duloxetine 120 mg p.o. daily Continue LOT WORKER mirtazapine 30 mg at bedtime Essential hypertension: Holding LOT WORKER lisinopril and furosemide in context of OMAR, [...] on 01/17/24 Susan Moody MD Hospitalist Service [facility] Securely message with the [employer] Web Console (learn more here) Text page via [employer] Paging/Directory -Data reviewed today: I reviewed all [...] Daily Karlie Rosenthal MD 120 mg at 01/19/24 0936 famotidine (PEPCID) tablet 20 mg 20 mg [...] 10 mg 10 mg Oral Q6H PRN Albanai Jackson PA-C 10 mg at 01/19/24 0937 [...] cardiomediastinal silhouette. SVITLANA ASCENCIO MD SYSTEM ID: [id number] * Rick Rogers - 01/19/2024 2:29 PM [...] costs, and insurance costs co-pays Additional Information: Agricultural And Forestry Supervisor met with the patient in the a.m. sports book writer went over insurance coverage (therapies/meds/room and board) and what is not covered (private room/transportation). Agricultural And Forestry Supervisor provided TCU list for the patient. Patient requested list between [facility]. Patient requested some time to look it over with family later today. Agricultural And Forestry Supervisor followed up with spouse and daughter at bedside. Family requested referral sent to [facility], and [facility]. Referral sent [employer] [facility] Social Work * Mervin Banegas PA-C - 01/19/2024 1:51 PM CDT [facility] Infectious Disease Progress Note Date of [...] Daily Karlie Rosenthal MD 10 mg at 01/19/2436 ceFAZolin (ANCEF) 2 g in 100 mL [...] results found. Recent Labs Lab Test 01/19/24 0701/18/24 0734 01/17/24 0832 CRPI 206.33* 274.19* 330.61* [...] Urbano PA-C - 01/19/2024 10:35 AM CDT [facility] Urology Progress Note Assessment & Plan [...] will follow CT results. Please page urologist sanitation worker hosing machinery if any additional urologic concerns over the weekend. Barby Urbano PA-C [facility] Pager: [phone] Office: [phone] OBJECTIVE: BP 136/59 (BP Location: Right arm) [...] mood, and affect normal Barby Urbano PA-C [facility] Pager: [phone] Office: [phone] * Alexia Hernandez RN - 01/18/2024 8:30 PM CDT Notification Notified Person: Notified Person Name:Eduarda Aguirre Notification Date/Time:01/18/24 @ 2028 Notification Interaction:[employer] Purpose of Notification:2415 (BF) Synovial fluid collected yesterday result :Gram positive cocci N clusters Orders Received: Comments: * Susan Moody MD - 01/18/2024 3:23 PM CDT [facility] Hospitalist Progress Note Date of Service [...] Plavix and hyperlipidemia who was admitted to [facility] to the concern for right knee pain. Patient was later diagnosed with septic arthritis and is transferred to [facility] for orthopedic surgery evaluation and possible surgical intervention. Patient was started on IV vancomycin and had traumatic Crandall catheter insertion for urinary retention, patient has also developed OMAR in the past 24 hours before transfer. Assessment & Plan Staph aureus right knee septic arthritis: Patient has undergone right knee replacement in August 2020. Patient was [facility] to [facility]06 for infected prosthetic [...] past few months, was recently evaluated by [facility] orthopedics on Sunday 01/07. According to patient [...] and ceftriaxone. Patient is now transferred to [facility] for further surgical intervention. Of note patient [...] team. Per Ortho note on 01/17 continue LOT WORKER Plavix plus aspirin 325 mg for DVT prophylaxis However, Plavix was stopped when brain aneurysm clipping was canceled. This was only indicated to reduce risk of thromboembolic complications around procedure. Have called Ortho regarding their preferred DVT prophylaxis. Remains on ASA 325 mg daily. Activity as tolerated with fall precautions although patient activity is limited due to pain. Hold LOT WORKER alendronate. Oxycodone for pain control Continue LOT WORKER Lyrica 75 mg p.o. twice daily ID consulted > Linezolid changed to ancef based on [place] knee aspirate cultures growing MSSA, resistant only to clinda. Cx here remain negative. Hold LOT WORKER clobetasol ointment. Acute kidney injury, resolving Urinary [...] Finding of large traumatic false passage. 16F northern [place] tip crandall placed over wire with cystoscopic [...] for post retention diuresis daily BMP Holding LOT WORKER lisinopril , furosemide and Celebrex Vitals: 01/16/24 0532 Weight: 138.3 kg (305 lb) I/O last 3 completed shifts: In: 2610 [P.O.:960; I.V.:1400] Out: 2094 [Urine:1700; Drains:195; Blood:200] Recent Labs Lab 01/18/24 [...] Continue famotidine 10 mg daily twice daily, LOT WORKER doses as needed History of depression and anxiety: Continue LOT WORKER duloxetine 120 mg p.o. daily Continue LOT WORKER mirtazapine 30 mg at bedtime Essential hypertension: Holding LOT WORKER lisinopril and furosemide in context of OMAR, [...] with , daughter and patient on 01/17/24 Susna Moody MD Hospitalist Service [facility] Securely message with the setObject Console (learn more here) Text page via [employer] Paging/Directory -Data reviewed today: I reviewed all [...] intermittent infusion 2 g Intravenous Q12H Urbano Johsnon MD 200mL/hr at 01/18/24 0459 2 g [...] Karlie Rosenthal MD 0.8 mg at 01/18/24 09 PRN Meds: Current Facility-Administered Medications Medication Dose [...] MD Data Recent Labs Lab 01/18/24 0734 01/17/24 2016 01/17/24 1607 01/17/24 1124 01/17/24 0832 01/16/24 2215 [...] XR KNEE PORT RIGHT 1/2 VIEWS LOCATION: [facility] DATE: 01/17/2024 INDICATION: Post Op Total [...] spouse works full-time and can not provide 24 assist. Pt reports he would be at [...] dressing;grooming;toileting Bathing Assessment/Intervention Position (Bathing) supported sitting Walker Level (Bathing) moderate assist (50% patient effort);maximum assist (25% patient effort) Comment, (Bathing) A x 2 for transfer - Per clinical judgment Assistive Devices (Bathing) shower chair Upper Body Dressing Assessment/Training Comment, (Upper Body Dressing) Per clinical judgment Walker Level (Upper Body Dressing) set up;minimum assist (75% patient effort) Lower Body Dressing Assessment/Training Comment, (Lower Body Dressing) Per clinical judgment Walker Level (Lower Body Dressing) set up;maximum assist (25% patient effort) Grooming Assessment/Training Position (Grooming) unsupported sitting Walker Level (Grooming) set up Comment, (Grooming) Per clinical judgment Toileting Comment, (Toileting) A x 2 BSC - per clinical judgment Walker Level (Toileting) moderate assist (50% patient effort) [...] safe discharge OT Total Evaluation Time OT Eval, Low Complexity Minutes (32050) 10 OT Goals Therapy Frequency (OT) Daily [...] Management Self-Care/Home Mgmt/ADL, Compensatory, Meal Prep Minutes (18193) 23 Symptoms Noted During/After Treatment (Meal Preparation/Planning Training) increased pain;shortnessof breath;increase work of breath;fatigue Treatment Detail/Skilled Intervention Pt greeted for OT initially, requesting time to nap. At return, pt receptive to participating. program aide to provide A x 2 for [...] spouse works full-time and can not provide 10/04 assist. Pt reports he would be at [...] Evaluation Time PT Eval, Low Complexity Minutes (12171) 10 Physical Therapy Goals PT Frequency Daily [...] Ther. Procedure: strength, endurance, ROM, flexibillity Minutes (42707) 1 Symptoms Noted During/After Treatment none Treatment Detail/Skilled Intervention PT educated pt on HEP post knee surgery. Pt discussed and read over exercises, elected not to complete at this time but will complete throughout the day. Therapeutic Activity Therapeutic Activities: dynamic activities to improve functional performance Minutes (74514) 25 Symptoms Noted During/After Treatment Fatigue;Increased pain [...] works full-time and is unable to provide / assist. PT Brief overview of current status Recommend nursing use A x 2 for transfers Total Session Time Timed Code Treatment Minutes 26 Total Session Time (sum of timed and untimed services) 36 * Marilyn Cullen PA-C - 01/18/2024 10:41 AM CDT [facility] Urology Progress Note Assessment & Plan [...] out possible prostate abscess Marilyn Cullen PA-C [place] [facility] [email or web address] Text Page (7:30am to 4:30pm) Interval History [...] XR KNEE PORT RIGHT 1/2 VIEWS LOCATION: [facility] DATE: 01/17/2024 INDICATION: Post Op Total [...] Banegas PA-C - 01/18/2024 10:33 AM CDT [facility] Infectious Disease Progress Note Date of [...] 302.98* 1. PLAN: Monitor hemoglobin closely. Continue LOT WORKER Plavix + ASA 325 mg for DVT [...] Notification Notified Person: MD Notified Person Name: uSsan Moody Notification Date/Time:01/17/24 @1553 Notification Interaction:[employer] Message Purpose of Notification:Pt have an order for BG check q2. The order was addressed last night to be changed to Q6h by on-call provider per RN note. Previous order is still there, and the new order notplaced. Please, can you address it. Thanks. Orders Received: Comments: * Wendi Eldridge CRNI - 01/17/2024 12:11 PM CDT [facility] Received request for benefit check [...] patient should have coverage if homebound, however [facility] is not contracted with Medicareand an outside nursing agency would be utilized instead. If patient is not homebound, there is no coverage and [facility] can see patient if patient agrees to self-pay for $90 per visit. Met with pt and his daughter at bedside to introduce home infusion and review benefits. Pt and his daughter state they think he will discharge to TCU but the decision has not been made yet. [place] willcontinue to follow and if pt discharges to home, I will coordinate IV teaching with pt/family. Pt'scare coordinator, Emma updated. Thank you Wendi Eldridge RN [facility] Liaison [phone] (Mon thru Fri 8am - 5pm) [phone] Office * Emma Moreno RN - 01/17/2024 11:36 AM CDT Images from the original note were not included. Per [facility] benefit check: * Susan Moody MD - 01/17/2024 11:25 AM CDT [facility] Hospitalist Progress Note Date of Service [...] Plavix and [facility]lipidemia [facility]. Patient was later diagnosed with septic arthritis and is transferred to [facility] for orthopedic surgery evaluation and possible surgical intervention. Patient was started on IV vancomycin and had traumatic Crandall catheter insertion for urinary retention, patient has also developed OMAR in the past 24 hours before transfer. Assessment & Plan Staph aureus right knee septic arthritis: Patient has undergone right knee replacement in August 2020. Patient was admitted to [facility] 01/06 for infected prosthetic [...] past few months, was recently evaluated by [facility] orthopedics on Sunday 01/07. According to patient [...] and ceftriaxone. Patient is now transferred to [facility] for further surgical intervention. Of note patient [...] activity is limited due to pain. Hold LOT WORKER alendronate Hold LOT WORKER Plavix due to possible procedure tomorrow. Oxycodone for pain control Continue LOT WORKER Lyrica 75 mg p.o. twice daily ID consulted > Linezolid changed to ancef based on [place] knee aspirate cultures growing MSSA, resistant only to clinda. Cx here remain negative. Hold LOT WORKER clobetasol ointment. Acute kidney injury, resolving Urinary retention with bilateral renal hydronephrosis -- Cr 2.21 (outside hospital) >> 4.49 -- had hematuria secondary to crandall catheter trauma -- Appreciate Urology consult on 01/16/24 Cystoscopy with complex crandall placement over wire performed at bedside with Dr Woods. Finding of large traumatic false passage. 16F northern [place] tip crandall placed over wire with cystoscopic [...] --Continue famotidine 10 mg daily twice daily, LOT WORKER doses as needed History of depression and anxiety: --Continue LOT WORKER duloxetine 120 mg p.o. daily --Continue LOT WORKER mirtazapine 30 mg at bedtime Essential hypertension: -- Holding LOT WORKER lisinopril and furosemide -- As needed hydralazine available Known brain aneurysm: -- Stable on LOT WORKER Plavix, holding for surgery, -- Resume postoperatively. [...] on 01/17/24 Susan Moody MD Hospitalist Service [facility] Securely message with the setObject Console (learn more here) Text page via [facility] Paging/Directory -Data reviewed today: I reviewed all [...] tablet 10 mg 10 mg Oral Daily Kalrie Rosenthal MD 10 mg at 01/17/24 0843 [...] lidocaine (LMX4) cream Topical Q1H PRN Karlie Rosenhtal MD lidocaine (XYLOCAINE) 2 % external gel [...] mg Oral Q4H PRN Karlie Rosenthal MD senna-docusate (SENOKOT-S/PERICOLACE) 8.6-50 [...] Walker PA-C - 01/17/2024 10:21 AM CDT [facility] Urology Progress Note Date of Service: [...] on 01/17/2024 at 10:21 AM [facility] * Wendi Eldridge CRNI - 01/16/2024 4:43 PM CDT [facility] Received request for benefit check should [...] patient should have coverage if homebound, however [facility] is not contracted with Medicareand an outside nursing agency would be utilized instead. If patient is not homebound, there is no coverage and [facility] can see patient if patient agrees to self-pay for $90 per visit. Thank you Wendi Eldridge RN [facility] Liaison [phone] (Mon thru Fri 8am - 5pm) [phone] Office * Barby Urbano PA-C - 01/16/2024 [...] hydronephrosis, OMAR, h/o radiation for prostate cancer ([place]). Suspect stricture related to prior radiation vs. [...] Finding of large traumatic false passage. 16F northern [place] tip crandall placed over wire with cystoscopic guidance for return of about 400cc clear yellow/sandrita urine. Patient tolerated procedure well. CONTINUE CURRENT CRANDALL, DO NOT REMOVE. Will need to follow up with urology for TOV in 2-5 weeks. Barby Urbano PA-C (Jackie) [facility] Office: [phone] Associated attestation - Donnie Woods MD - [...] Walker MD - 01/16/2024 10:21 AM CDT [facility] Hospitalist Progress Note Jason Walker MD 01/16/2024 Assessment & Plan Osvaldo Zuniga is a 68 year old male with past medical history significant for obesity, type 2 diabetes mellitus, essential hypertension, depression, anxiety, prostate cancer, incidental finding of brain aneurysm on Plavix and hyperlipidemia [facility]. Patient was later diagnosed with septic arthritis and is transferred to [facility] for orthopedic surgery evaluation and possible surgical intervention. Patient was started on IV vancomycin and had traumatic Crandall catheter insertion for urinary retention, patient has also developed OMAR in the past 24 hours before transfer. Assessment & Plan Staph aureus right knee septic arthritis: Patient has undergone right knee replacement in August 2020. Patient was admitted to [facility] [place] [facility] for infected prosthetic [...] past few months, was recently evaluated by [facility] orthopedics on Sunday 01/07. According to patient [...] and ceftriaxone. Patient is now transferred to [facility] for further surgical intervention. Of note patient [...] pain. --Start patient on IV fluids. --Hold LOT WORKER alendronate --Hold LOT WORKER Plavix due to possible procedure tomorrow. --Will order oxycodone for pain control --Continue LOT WORKER Lyrica 75 mg p.o. twice daily --Considering [...] tolerated anesthesia well in the past. --Hold LOT WORKER clobetasol ointment Acute kidney injury Urinary retention [...] --Continue famotidine 10 mg daily twice daily, LOT WORKER doses as needed History of depression and anxiety: --Continue LOT WORKER duloxetine 120 mg p.o. daily --Continue LOT WORKER mirtazapine 30 mg at bedtime -- As above, starting patient on linezolid if patient is stays on it for more than 24 to 48 hours will consider holding SSRIs to decrease risk of serotonin syndrome, will await antibiotic recommendation from ID Essential hypertension: -- Hold LOT WORKER lisinopril and furosemide -- As needed hydralazine available Incidental finding of brain aneurysm: -- Stable on LOT WORKER Plavix, holding for possible surgical intervention tomorrow, [...] at 01/16/24 0822 Rate Verify at 01/16/24 0822 Current Facility-Administered Medications Medication Dose Route Frequency [...] edema on BLE. CMS intact. NPO at [place]. For ortho, ID & urology consult. documented in this encounter H&P Notes * Karlie Rosenthal MD - 01/15/2024 9:04 PM CDT [facility] History and Physical : Hospitalist Service: Date of Admission: 01/15/2024 Cumulative Summary: Osvaldo Zuniga is a 68 year old male with past medical history significant for obesity, type 2 diabetes mellitus, essential hypertension, depression, anxiety, prostate cancer, incidental finding of brain aneurysm on Plavix and hyperlipidemia who was admitted to [facility] to the concern for right knee pain. Patient was later diagnosed with septic arthritis and is transferred to [facility] for orthopedic surgery evaluation and possible surgical intervention. Patient was started on IV vancomycin and had traumatic Crandall catheter insertion for urinary retention, patient has also developed OMAR in the past 24 hours before transfer. Assessment & Plan Staph aureus right knee septic arthritis: Patient has undergone right knee replacement in August 2020. Patient was admitted to [facility] [place] [facility] for infected prosthetic [...] past few months, was recently evaluated by [facility] orthopedics on Sunday 01/07. According to patient [...] and ceftriaxone. Patient is now transferred to [facility] for further surgical intervention. Of note patient [...] pain. --Start patient on IV fluids. --Hold LOT WORKER alendronate --Hold LOT WORKER Plavix due to possible procedure tomorrow. --Hold LOT WORKER Celebrex. --Hold LOT WORKER furosemide 40 mg p.o. daily --Hold hydroxyzine for itching --Hold LOT WORKER lisinopril 20 mg p.o. daily --Hold LOT WORKER Multivitamin --Will order oxycodone for pain control --Continue LOT WORKER Lyrica 75 mg p.o. twice daily --Orthopedic [...] tolerated anesthesia well in the past. --Hold LOT WORKER clobetasol ointment Acute kidney injury Urinary retention with bilateral renal hydronephrosis --Continue Crandall care, patient has low urine output since placement of Crandall --Discussed with bedside nursing regarding bladder irrigation --Will consult urology --Start patient on LOT WORKER Flomax --Recheck BMP tomorrow morning --As above, will hold lisinopril , furosemide and Celebrex --Holding vancomycin for now GERD --Continue famotidine 10 mg daily twice daily, LOT WORKER doses as needed History of depression and anxiety: --Continue LOT WORKER duloxetine 120 mg p.o. daily --Continue LOT WORKER mirtazapine 30 mg at bedtime -- As above, starting patient on linezolid if patient is stays on it for more than 24 to 48 hours will consider holding SSRIs to decrease risk of serotonin syndrome Essential hypertension: -- Hold LOT WORKER lisinopril and furosemide -- As needed hydralazine available Incidental finding of brain aneurysm: -- Stable on LOT WORKER Plavix, holding for possible surgical intervention tomorrow, [...] Plavix and hyperlipidemia who was admitted to [facility] to the concern for right knee pain. Patient has undergone right knee replacement in August 2020. Patient was admitted to [facility] [place] [facility] for infected prosthetic [...] with ID follow-up. Patient was thenevaluated by [facility] orthopedics on 01/08/2024 for chronic pain. On [...] was started on vancom ycin and ceftriaxone. scallop dredger orthopedic surgeon was consulted who recommended medical management with outpatient procedure. His pain was managed by oxycodone and IV Dilaudid orthopedic surgery recommended transfer for consideration of surgery and patient is transferred to [facility] His initial creatinine was 1.0 on admission. [...] spray 01/14/2024 at am Yes Yes Sig: [place] 1 spray into one nostril alternating nostrils [...] PM CDTAssociated Order(s): Single Lumen PICC Placement [facility] Single Lumen PICC Placement Date/Time: 01/19/2024 [...] the procedure a time out was called [place] Protocol: the Joint Commission [place] Protocol was followed Preparation: Patient was prepped [...] Initial Consult General Information Assessment completed with: Patient, Osvaldo Type of CM/SW Visit: Initial Assessment [...] Insecurity: No Food Insecurity (01/14/2024) [email or web address] Food Insecurity Worried About Running Out of Food in the Last Year: 1 Depression: Not at risk (01/01/2024) Received from [facility] PHQ-2 PHQ-2 TOTAL SCORE: 2 Housing Stability: Low Risk (01/14/2024) Received from [facility] Housing Stability Unable to Pay for Housing in the Last Year: 1 Tobacco Use: Medium Risk (01/14/2024) Received from [facility] Patient History Smoking Tobacco Use: Former Smokeless Tobacco Use: Never Passive Exposure: Not on file Financial Resource Strain: Low Risk (01/14/2024) Received from [facility] Financial Resource Strain Difficulty of Paying Living Expenses: 3 Difficulty of Paying Living Expenses: Not on file Alcohol Use: Alcohol Misuse (07/18/2022) Received from [facility] AUDIT-C Frequency of Alcohol Consumption: 4 or more times a week Average Number of Drinks: 1 or 2 Frequency of Binge Drinking: Less than monthly Transportation Needs: No Transportation Needs (01/14/2024) Received from [facility] Transportation Needs Lack of Transportation (Medical): 1 Physical Activity: Insufficiently Active (09/21/2023) Received from [facility] Exercise Vital Sign Days of Exercise per Week: 2 days Minutes of Exercise per Session: 20 min Interpersonal Safety: Not At Risk (07/18/2022) Received from [facility] Humiliation, Afraid, Rape, and Kick questionnaire Fear of Current or Ex-Partner: No Emotionally Abused: No Physically Abused: No Sexually Abused: No Stress: Stress Concern Present (07/18/2022) Received from [facility] [place] - Occupational Stress Questionnaire Feeling of Stress : Rather much Social Connections: Socially Integrated (01/14/2024) [email or web address] Social Connections Frequency of Communication with Friends and Family: 0 Health Literacy: Not on file Functional Status: Prior to admission patient needed assistance: Dependent ADLs:: Independent Dependent IADLs:: Independent Mental Health Status: Chemical Dependency Status: Values/Beliefs: Spiritual, Cultural Beliefs, Anabaptist Practices, Values that affect care: no Additional [...] at home. Discussed sending a referral to [facility] to check his insurance coverage for home IV abx and pt was in agreement with this plan. Discussed PT/OT eval for discharge recommendations and discussed possible need for TCU vs Home care. Patient open to TCU vs home care at discharge. Referral sent to [facility]. Await PT/OT eval. Inpatient Director Of Undergraduate Admissions will continue to follow for discharge planning. YARED Rodriguez RN, BSN, OCN Inpatient Care Coordination Orth[facility] * Stacy Bland PA-C - 01/16/2024 1:34 PM CDTAssociated Order(s): ORTHOPEDIC SURGERY IP CONSULT [facility] Orthopedic Consultation Osvaldo Zuniga Age: [age] year old Date of : 1955 Date of Admission: 01/15/2024 Reason for consult: Right knee infection Requesting physician: Karlie Rosenthal MD Level of consult: Consult, follow and place orders Assessment and Plan: Assessment: Right septic total knee arthroplasty (MSSA) S/p right TKA (DOS: 09/08/20) with Dr. Jose Armando Vega ([place]), ? I&D vs revision for MSSA ~3 months postop (~11/2020) Plan: The patient's history and clinical/diagnostic findings were reviewed with the on-call orthopedic trauma surgeon, Dr. Miguel Francois. Patient has a history of s/p right TKA with revision in with Dr. Jose Armando Vega at [facility]. Patient has always had right knee [...] per ID. -Continue pain regimen. -Hold any LOT WORKER anticoagulation (LOT WORKER Plavix - held since 01/14/24). -Type and [...] Plavix and hyperlipidemia who was transferred to [facility] on 01/15/24 for a right septic TKA. Patient has ahistory of s/p right TKA with revision for MSSA septic joint in with Dr. Jose Armando Vega [facility]. Patient has always had right knee [...] mg Intravenous Q2 Min PRN Marilyn Kolb [facility] Or naloxone (NARCAN) injection 0.4 mg 0.4 [...] 3 mL 3 mL Intracatheter Q8H Karlie Rosetnhal MD sodium chloride (PF) 0.9% PF flush 3 mL 3 mL Intracatheter q1 min prn Karlie Rosenthal MD sodium chloride 0.9 % infusion Intravenous Continuous Karlie Rosentahl MD 100 mL/hr at 01/16/24 1319 New [...] Oral 95 18 95 % -- -- 01/15/242052 116/56 99.5 ??F (37.5 ??C) Oral 95 [...] Rate 92 BPM Atrial Rate 92 BPM RI Interval 164 ms QRS Duration 112 ms QT 388 ms QTc 479 ms P Curtis 72 degrees R AXIS 51 degrees T Curtis 58 degrees Interpretation ECG Sinus rhythm Normal ECG No previous ECGs available Adult Type and Screen Status: None Result Value Ref Range ABO/RH(D) A POS Antibody Screen Negative Negative SPECIMEN EXPIRATION DATE [id number] ABO/Rh type and screen Status: None Narrative The following orders were created for panel order ABO/Rh type and screen. Procedure Abnormality Status --------- ------ Adult Type and Screen[[id number]] Final result Please view results for these tests on the individual orders. Attestation: I have reviewed today's vital signs, notes, medications, labs and imaging with Dr. Miguel Francois. Amount of time performed on this consult: 60 minutes. Stacy Bland PA-C [facility] Associated attestation - Miguel Francois MD - 01/18/2024 7:38 AM CDT Physician Attestation I agree with the information in this note. Miguel Francois MD * Mervin Banegas PA-C - 01/16/2024 11:42 AM CDTAssociated Order(s): INFECTIOUS DISEASES IP CONSULT [facility] Infectious Disease Consultation Date of Admission: [...] a right knee replacement in 08/2020. On 12/16/20he developed infection of his right knee and [...] to Clindamycin. [facility] intervention. Past Medical History I [...] spray 01/14/2024 at am Yes Yes Sig: Whitakers 1 spray into one nostril alternating nostrils [...] All laboratory data reviewed Component Latest Ref Rn 01/16/2024 8:45 AM WBC 4.0 - 11.0 [...] 79 (H) Culture from right knee at [facility] with MSSA Associated attestation - Urbano Johnson MD - 01/16/2024 2:37 PM CDT Physician Attestation I saw and evaluated Osvaldo Zuniga as part of a shared PROPOSITION PLAYER/PA visit. I personally reviewed the vital signs, [...] 8:41 AM CDTAssociated Order(s): UROLOGY IP CONSULT [facility] Inpatient Consultation Note Osvaldo Zuniga Age: [age] year old Date of : 1955 Date of Admission: 01/15/2024 Reason for consult: Traumatic crandall, OMAR Requesting physician: Dr Hilario History of Present Illness: 68 yo M with urologic history of prostate cancer and urge incontinence ([facility]) admitted withseptic arthritis. Directly admitted from [facility]. Per chart review, Cr noted to jump at [facility] from 1.0 to 2.21 so renal US [...] ERBT + percutaneous cryoablation 2021, follows with [facility]. Most recent PSA <0.10 on 12/26/23. Also with sacral neuromodulation for OAB and urge incontinence d/t radiation per the limited [facility] records I am able to review. I do see a CT urogram report from August 2023 which shows mild L hydronephrosis presumably due to distal ureteral inflammation from prior radiation. He is on Flomax LOT WORKER which has been continued here. Baseline PVR [...] from the Admission note dated 01/15/24 at [facility] was reviewed with no changes except per [...] H/o prostate cancer s/p ERBT and cryoablation ([facility]). Plan: - Crandall out and patient now voiding normally with PVR at about his baseline (261 ml). No urgent need for crandall replacement, though worsening OMAR and bilateral hydronephrosis yesterday on ultrasoundyesterday is of concern. Due to body habitus and limitation of US, recommend non-contract CT A/P tofurther evaluate. Consider nephrology consult. - We did discuss possibility of carndall replacement if bilateral hydronephrosis persists. If he [...] follow CT results today. Barby Urbano PA-C [facility] Pager: [phone] Office: [phone] Associated attestation - Donnie Woods MD - [...] goal(s). See goals on Care Plan in [facility] electronic health record for goal details. Goals [...] goal(s). See goals on Care Plan in [facility] electronic health record for goal details. Goals [...] AM CDT Goal Outcome Evaluation: Summary 01/22/24. 4251-7552 Patient is alert and oriented X4. Forgetful [...] due to retention. Pt to discharge with crnadall. Patient able to tolerate oral intake: Yes Pain has adequate pain control using Oral analgesics: Yes. 5-10mg of PRN oxy, tylenol, and ice. 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 [...] 01/21/2024 6:49 AM CDT Goal Outcome Evaluation: 4680-8683 Summary:Staph aureus right knee septic arthritis: S/p [...] Goal Outcome Evaluation: Goal Outcome Evaluation: Summary: 9701-2201 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 [...] urethra following getting up to the commode, sports book writer and hospitalist assessed has been ongoing per [...] 12:05 AM CDT Goal Outcome Evaluation: Summary: 7592-4946 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 [...] AM CDT Goal Outcome Evaluation: Summary: 01/17/24-01/18/24; 5596-0336 Diagnosis: Septic R knee, R knee arthroplasty w/ placement of abx spacer POD: 1 Orientation: A/O x3-4, disoriented to place at times, intermittent confusion Vitals/Tele: intermittent soft BP on 2L O2, O2 weaned to 1L IV Access/drains: L PIV SL; crandall in place Diet: Regular Mobility: A2 Lift Pain: often denies pain, reported pain 02/25 this AM, given scheduled tylenol GI/: crandall [...] Garcia MD - 01/17/2024 7:20 PM CDT [facility] Brief Operative Note Pre-operative diagnosis: Staphylococcal [...] ROUTINE Caleb Garcia MD 01/17/2024 6:41 PM D : [...] Implant Name Type Inv. Item Serial No. Battery Test Engineer Lot No. LRB No. Used Action BONE CEMENT SIMPLEX FULL DOSE 6191-1-001 - [id number] Cement, Bone BONE CEMENT SIMPLEX FULL DOSE 6191-1-001 [employer] [id number] Right 3 Implanted IMP COMP FEM STRK TRIATHLN DIST AUG 5MM RT 6 5540-A-602 - [id number] Total Joint Component/Insert IMP COMP FEM STRK TRIATHLN DIST AUG 5MM RT 6 5540-A-602 [employer] Patient [employer] [id number] Right 1 Implanted IMP COMP FEM STRK TRIATHLN DIST AUG 5MM RT 6 5540-A-602 - [id number] Total Joint Component/Insert IMP COMP FEM STRK TRIATHLN DIST AUG 5MM RT 6 5540-A-602 [employer] [id number] Right 1 Implanted IMP COMP FEM STRK TRIATHLN PS RT 6 5515-F-602 - [id number] Total Joint Component/Insert IMP COMP FEM STRK TRIATHLN PS RT 6 5515-F-602 [employer] [id number] Right 1 Implanted TRIATHLON ALL POLY TIBIAL COMPENT - PS SIZE #5, 11MM PS Metallic Hardware/[place] MIGEL [id number] Right 1 Implanted RIGHT KNEE 4 COMPONENTS Right 1 Explanted * Op Note - Caleb Garcia MD - 01/17/2024 5:27 PM CDT 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 Implants [employer] Triathlon total knee system The femoral component was a posterior stabilized size 6 right. The tibial component was a size 5 13mm all polyethylene tibia. * Plan of Care - Eliu Badillo RN - 01/17/2024 6:50 AM CDT Date/Time 01/15-01/17/24 8569-6961 Trauma/Ortho/Medical; Ortho Diagnosis: Septic R knee POD#:NA [...] PM CDT Goal Outcome Evaluation: .Date/Time 01/16/24 3348-3280 Trauma/Ortho/Medical; Ortho Diagnosis: Septic R knee POD#:NA [...] 1:00 AM CDT Goal Outcome Evaluation: Summary: 0986-2813 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 Septic joint (H) Orientation: A&O x4 Activity Level: in bed pt reported to sports book writer that he had gotten up to the commode at previous facility when he first arrived, but later told sports book writer that they wanted him to attempt. Unsure if he has gotten oob yet Behavior & Aggression:Green Pain : C/O 8/10 Pain mostly with movement, was able to sleep and told sports book writer he was comfortable near the end of [...] bag, hospitalist notified regarding this and whether sports book writer should irrigate the crandall. Was told to irrigate the crandall and that urology would be consulted. Attempted irrigating crandall with sterile n/s and was unsuccessful and irrigant bypassed catheter with minimal amounts draining back to crandall bag. Urology were paged and sports book writer was told to remove catheter and have [...] Mendoza RN - 01/15/2024 11:20 PM CDT MD Notification Notified Person: christine GRANT Notification Date/Time: 01/15/24, 11:15 Notification Interaction: [facility] answering service Purpose of Notification: crandall [...] * Pharmacy-Admission Medication History - Marilyn Kolb [facility] - 01/15/2024 9:09 PM CDT Pharmacist Admission Medication History Admission medication history is complete. The information provided in this note is only as accurateas the sources available at the time of the update. Information Source(s): Hospital records via N/A. Transfer from [facility]. Pharmacy completed medication list 01/14/24 Pertinent Information: It was noted that clopidogrel started 01/05/24 Changes made to LOT WORKER medication list: Added: all medications Deleted: None Changed: None Medication History Completed By: Marilyn Kolb [facility] 01/15/2024 9:09 PM LOT WORKER Med List Medication Sig Last Dose alendronate (FOSAMAX) 70 MG tablet Take 70 mg by mouth every 7 days 01/14/2024 at am atorvastatin (LIPITOR) 10 MG tablet Take 10 mg by mouth daily 01/15/2024 at am calcitonin, salmon, (MIACALCIN) 200 UNIT/ACT nasal spray Whitakers 1 spray into one nostril alternatingnostrils daily [...] [place] RN - 01/15/2024 8:35 PM CDT MD Notification Notified Person: Notified Person Name: Leno Loveist Notification Date/Time: 01/15/2024 at 5 Notification Interaction: Amcom Purpose of Notification: 2412 [...] NEEDS IMPLANT SHEETBO reviewed/Billed per invoice and [employer] prices (lower murdock) GLUCOSE BY METER Routine [...] Basic metabolic panel (01/23/2024 5:27 AM CDT) [facility] Sodium 137 135 - 145 mmol/L 01/23/2024 [...] MD LAB - BLOOD ORDERABL ES LABORATORY [facility] [address], [address] [place] [address], [facility] [phone] * (ABNORMAL) Basic metabolic panel (01/22/2024 7:14 AM CDT) [facility] Sodium 139 135 - 145 mmol/L 01/22/2024 [...] Moody MD LAB - BLOOD ORDERABL ES [facility] Lab [address], [address] [place] [address], [facility] [phone] * Potassium (01/22/2024 2:25 AM CDT) [facility] Potassium 3.6 3.4 - 5.3 mmol/L 01/22/2024 2:52 AM CDT LABORATORY Blood VENOUS LINE / Unknown Venipuncture / Unknown 01/22/2024 2:25 AM CDT 01/22/2024 2:39 AM CDT Jason Walker MD LAB - BLOOD ORDERAB LES LABORATORY [facility] Lab [address], [address] [place] [address], [facility] [phone] * (ABNORMAL) Potassium (01/21/2024 9:04 PM CDT) Potassium 3.3(L) 3.4 - 5.3 mmol/L 01/21/2024 9:32 PM CDT LABORATORY Blood VENOUS LINE / Unknown Venipuncture / Unknown 01/21/2024 9:04 PM CDT 01/21/2024 9:17 PM CDT Susan Moody MD LAB - BLOOD ORDERABL ES LABORATORY [facility] Lab [address], [address] [place] [address], [facility] [phone] * (ABNORMAL) Basic metabolic panel (01/21/2024 5:56 [...] 0.67 - 1.17 mg/dL 01/21/2024 7:01 AM T LABORATORY GFR Estimate 74 >60 mL/min/1. 73m2 01/21/2024 7:01 AM CDT LABORATORY Calcium 8.6(L) 8.8 - 10.2 mg/dL 01/21/2024 7:01 AM CDT LABORATORY Glucose 125(H) 70 - 99 mg/dL 01/21/2024 7:01 AM CDT LABORATORY Blood BLOOD SPECIMEN / Unknown Venipuncture / Unknown 01/21/2024 5:56 AM CDT 01/21/2024 6:35 AM CDT Susan Moody MD LAB - BLOOD ORDERABL ES LABORATORY [facility] [address], [address] [place] [address], [facility] [phone] * CT Abdomen Pelvis w/o Contrast (01/20/2024 [...] CT ABDOMEN AND PELVIS WITHOUT CONTRAST LOCATION: [facility] DATE: 01/20/2024 INDICATION: Following for hydronephrosis, [...] CT ABDOMEN AND PELVIS WITHOUT CONTRAST LOCATION: [facility] DATE: 01/20/2024 INDICATION: Following for hydronephrosis, [...] 3. Small amount of abdominal ascites. Barby HOYT-Christie IMG CT ORDERAB LES * (ABNORMAL) Basic [...] 22 - 29 mmol/L 01/20/2024 7:13 AM CDT LABORATORY Anion Gap 13 7 - 15 mmol/L 01/20/2024 7:13 AM CDT LABORATORY Urea Nitrogen 33.5(H) 8.0 - 23.0 mg/dL 01/20/2024 7:13 AM CDT LABORATORY Creatinine 1.50(H) 0.67 - 1.17 mg/dL 01/20/2024 7:13 AM CDT LABORATORY GFR Estimate 51(L) >60 mL/min/1. 73m2 01/20/2024 7:13 AM CDT LABORATORY Calcium 8.4(L) 8.8 - 10.2 mg/dL 01/20/2024 7:13 AM CDT LABORATORY Glucose 125(H) 70 - 99 mg/dL 01/20/2024 7:13 AM T LABORATORY Blood BLOOD SPECIMEN / Unknown Venipuncture / Unknown 01/20/2024 6:33 AM CDT 01/20/2024 6:44 AM CDT Susan Moody MD LAB - BLOOD ORDERABL ES LABORATORY [facility] [address], [address] [place] [address], [facility] [phone] * (ABNORMAL) Hemoglobin (01/20/2024 6:33 AM CDT) Hemoglobin 8.3(L) 13.3 - 17.7 g/dL 01/20/2024 6:46 AM CDT LABORATORY Blood BLOOD SPECIMEN / Unknown Venipuncture / Unknown 01/20/2024 6:33 AM CDT 01/20/2024 6:44 AM CDT Susan Moody MD LAB - BLOOD ORDERABL ES LABORATORY [facility] [address], [address] [place] [address], [facility] [phone] * XR Chest Port 1 View (01/19/2024 2:12 PM CDT) Anatomical Region Laterality Modality Chest Digital Radiogra phy Impressions 01/19/2024 2:37 PM CDT IMPRESSION: Right PICC tip at the mid SVC approximately 6 cm from the cavoatrial junction. Right lung and visualized left lung proctor are clear. Grossly unremarkable cardiomediastinal silhouette. SVITLANA ASCENCIO MD SYSTEM ID: [id number] Narrative 01/19/2024 2:37 PM CDT CHEST ONE [...] cardiomediastinal silhouette. SVITLANA ASCENCIO MD SYSTEM ID: [id number] Mervin Banegas PA-C IMG DIAGNOSTIC IM AGING ORDERABLES * Single Lumen PICC Placement (01/19/2024 2:11 PM CDT) Narrative Esther Mccabe RN - 01/19/2024 2:11 PM CDT Esther Mccabe RN ? 01/19/2024 ??2:16 PM [facility] Single Lumen PICC Placement Date/Time: 01/19/2024 [...] procedure a time out was called ?? [place] Protocol: the Joint Commission [place] Protocol was followed ?? Preparation: Patient was [...] 135 - 145 mmol/L 01/19/2024 8:26 AM [facility] LABORATORY Comment:Reference intervals for this test [...] 98 - 107 mmol/L 01/19/2024 8:26 AM CDT LABORATORY Carbon Dioxide (CO2) 19(L) 22 - 29 mmol/L 01/19/2024 8:26 AM T LABORATORY Anion Gap 12 7 - 15 mmol/L 01/19/2024 8:26 AM CDT LABORATORY Urea Nitrogen 47.4(H) 8.0 - 23.0 mg/dL 01/19/2024 8:26 AM CDT LABORATORY Creatinine 2.19(H) 0.67 - 1.17 mg/dL 01/19/2024 8:26 AM CDT LABORATORY GFR Estimate 32(L) >60 mL/min/1. 73m2 01/19/2024 8:26 AM T LABORATORY Calcium 8.2(L) 8.8 - 10.2 mg/dL 01/19/2024 8:26 AM T LABORATORY Glucose 109(H) 70 - 99 mg/dL 01/19/2024 8:26 AM T LABORATORY Blood STRUCTURE OF RIGHT UPPER LIMB / Unknown Venipuncture / Unknown 01/19/2024 7:26 AM CDT 01/19/2024 7:51 AM CDT Susan Moody MD LAB - BLOOD ORDERABL ES LABORATORY [facility] [address], [address] [place] [address], [facility] [phone] * (ABNORMAL) CBC with platelets (01/19/2024 7:26 AM CDT) Pathologist [facility] WBC Count 6.0 4.0 - 11.0 10e3/uL [...] MD LAB - BLOOD ORDERABL ES LABORATORY [facility] [address], [address] [place] [address], [facility] [phone] * (ABNORMAL) CRP inflammation (01/19/2024 7:26 AM CDT) Pathologist [facility] CRP Inflammation 206.33(H) <5.00 mg/L 01/19/2024 8:26 AM CDT LABORATORY Blood STRUCTURE OF RIGHT UPPER LIMB / Unknown Venipuncture / Unknown 01/19/2024 7:26 AM CDT 01/19/2024 7:51 AM CDT Stacy Bland PA-C LAB - BLOOD ORD ERABLES LABORATORY [facility] [address], [address] [place] [address], [facility] [phone] * (ABNORMAL) Basic metabolic panel (01/18/2024 7:34 AM CDT) [facility] Sodium 139 135 - 145 mmol/L 01/18/2024 9:16 AM [facility] LABORATORY Comment:Reference intervals for this test were updated on 06/13/2023 to more accurately reflect our healthy population. There may be differences in the flagging of prior results with similar values performed with this method. Interpretation of those prior results can be made in the context of the updated reference intervals. Potassium 4.3 3.4 - 5.3 mmol/L 01/18/2024 9:16 AM [facility] LABORATORY Chloride 106 98 - 107 mmol/L 01/18/2024 9:16 AM [facility] LABORATORY Carbon Dioxide (CO2) 18(L) 22 - 29 mmol/L 01/18/2024 9:16 AM [facility] LABORATORY Anion Gap 15 7 - 15 mmol/L 01/18/2024 9:16 AM [facility] LABORATORY Urea Nitrogen 53.1(H) 8.0 - 23.0 mg/dL 01/18/2024 9:16 AM [facility] LABORATORY Creatinine 3.13(H) 0.67 - 1.17 mg/dL 01/18/2024 9:16 AM [facility] LABORATORY GFR Estimate 21(L) >60 mL/min/1. 73m2 01/18/2024 9:16 AM T LABORATORY Calcium 8.1(L) 8.8 - 10.2 mg/dL 01/18/2024 9:16 AM [facility] LABORATORY Glucose 116(H) 70 - 99 mg/dL 01/18/2024 9:16 AM [facility] LABORATORY Blood STRUCTURE OF LEFT UPPER LIMB / Unknown Venipuncture / Unknown 01/18/2024 7:34 AM CDT 01/18/2024 8:10 AM CDT Susan Moody MD LAB - BLOOD ORDERABL ES Performing Organization Address City/[facility]/ZIP Co de Phone Number LABORATORY [facility] Lab [address], [address] [place] [address], [facility] * (ABNORMAL) Hemoglobin (01/18/2024 7:34 AM CDT) Hemoglobin 7.7(L) 13.3 - 17.7 g/dL 01/18/2024 8:14 AM CDT LABORATORY Blood STRUCTURE OF LEFT UPPER LIMB / Unknown Venipuncture / Unknown 01/18/2024 7:34 AM CDT 01/18/2024 8:10 AM CDT Susan Moody MD LAB - BLOOD ORDERABL ES Performing Organization Address [facility]/ZIP Co de Phone Number LABORATORY [facility] Lab [address], [address] [place] [address], [facility] * (ABNORMAL) CRP inflammation (01/18/2024 7:34 AM CDT) CRP Inflammation 274.19(H) <5.00 mg/L 01/18/2024 9:16 AM CDT LABORATORY Blood STRUCTURE OF LEFT UPPER LIMB / Unknown Venipuncture / Unknown 01/18/2024 7:34 AM CDT 01/18/2024 8:10 AM CDT Stacy Bland PA-C LAB - BLOOD ORD ERABLES LABORATORY [facility] Lab [address], [address] [place] [address], [facility] * (ABNORMAL) Glucose by meter (01/17/2024 8:16 PM CDT) GLUCOSE BY METER POCT 123(H) 70 - 99 mg/dL 01/17/2024 8:23 PM CDT LABORATORY POC Blood, Capillary BLOOD SPECIMEN / Unknown 01/17/2024 8:16 PM CDT 01/17/2024 8:23 PM CDT Jason Walker MD LAB - BEAKER POCT LABORATORY POC [facility] [address], [address] [place] [address] * XR Knee Port Right 1/2 [...] XR KNEE PORT RIGHT 1/2 VIEWS LOCATION: [facility] DATE: 01/17/2024 INDICATION: Post Op Total Knee COMPARISON: None. Procedure Note Alfa Patel, - 01/17/2024 EXAM: XR KNEE PORT RIGHT 1/2 VIEWS LOCATION: [facility] DATE: 01/17/2024 INDICATION: Post Op Total [...] MICRO GENE RAL ORDERABLES [facility]AT[facility] Inf. Diseases Diag. Lab [address] [facility], [address] [place] [phone] * (ABNORMAL) Tissue Aerobic Bacterial Culture [...] MICRO GENE RAL ORDERABLES [facility] Inf. Diseases Diag. Lab [address] [facility], [place] [phone] * Anaerobic Bacterial Culture Routine (01/17/2024 6:42 PM CDT) Culture No anaerobic organisms isolated ALEXANDRE 01/31/2024 8:08 AM CDT [facility] LABORATORY Synovial fluid STRUCTURE OF RIGHT KNEE REGION / Unknown Non-blood Collection / Unknown 01/17/2024 6:42 PM CDT 01/17/2024 7:18 PM CDT Caleb Garcia MD LAB - MICRO GENE RAL ORDERABLES [facility] Inf. Diseases Diag. Lab [address] [facility], [address] [place] [phone] [place] [address] * Anaerobic Bacterial Culture Routine (01/17/2024 6:42 PM CDT) Culture No anaerobic organisms isolated ALEXANDRE 01/24/2024 8:08 AM CDT [facility] LAB[facility]AT[facility] Tissue STRUCTURE OF RIGHT KNEE REGION / Unknown Non-blood Collection / Unknown 01/17/2024 6:42 PM CDT 01/17/2024 7:17 PM CDT Caleb Garcia MD LAB - MICRO GENE RAL ORDERABLES [facility]AT[facility] Inf. Diseases Diag. Lab [address] [facility], [address] * Tissue Aerobic Bacterial Culture Routine (01/17/2024 6:41 PM CDT) Culture No Growth ALEXANDRE 01/22/2024 7:24 AM CDT [facility] Tissue STRUCTURE OF RIGHT KNEE REGION / Unknown Non-blood Collection / Unknown 01/17/2024 6:41 PM CDT 01/17/2024 7:21 PM CDT Caleb Garcia MD LAB - MICRO GENE RAL ORDERABLES Performing Organization Address [facility] Co de Phone Number [facility] LABORATORY [facility] Inf. Diseases Diag. Lab [address] [facility], [address] * (ABNORMAL) Tissue Aerobic Bacterial Culture Routine (01/17/2024 6:41 PM CDT) Culture 1+ Staphylococcus aureus(A) ALEXANDRE 01/22/2024 7:42 AM CDT [facility]ATORY Comment:Susceptibilities don e on previous cultures Tissue STRUCTURE OF RIGHT KNEE REGION / Unknown Non-blood Collection / Unknown 01/17/2024 6:41 PM CDT 01/17/2024 7:20 PM CDT Caleb Garcia MD LAB - MICRO GENE RAL ORDERABLES Performing Organization Address City/[facility]/ZIP Co de Phone Number [facility] LABORATORY [facility] Inf. Diseases Diag. Lab [address] [facility], [address] * (ABNORMAL) Tissue Aerobic Bacterial Culture Routine (01/17/2024 6:41 PM CDT) Culture 1+ Staphylococcus aureus(A) ALEXANDRE 01/22/2024 7:42 AM CDT [facility] Comment:Susceptibilities don e on previous cultures Tissue STRUCTURE OF RIGHT KNEE REGION / Unknown Non-blood Collection / Unknown 01/17/2024 6:41 PM CDT 01/17/2024 7:19 PM CDT Caleb Garcia MD LAB - MICRO GENE RAL ORDERABLES [facility]AT[facility] Inf. Diseases Diag. Lab [address] [facility], Room [place] [phone] * (ABNORMAL) Tissue Aerobic Bacterial Culture Routine (01/17/2024 6:41 PM CDT) Culture 1+ Staphylococcus aureus(A) ALEXANDRE 01/22/2024 7:43 AM CDT [facility] Comment:Susceptibilities don e on previous cultures Tissue STRUCTURE OF RIGHT KNEE REGION / Unknown Non-blood Collection / Unknown 01/17/2024 6:41 PM CDT 01/17/2024 7:19 PM CDT Caleb Garcia MD LAB - MICRO GENE RAL ORDERABLES Performing Organization Address City/[facility]/ZIP Co de Phone Number [facility] Inf. Diseases Diag. Lab [address] [facility], Room [address] [address], [place] * Anaerobic Bacterial Culture Routine (01/17/2024 6:41 PM CDT) Culture No anaerobic organisms isolated ALEXANDRE 01/24/2024 8:09 AM CDT [facility] Tissue STRUCTURE OF RIGHT KNEE REGION / Unknown Non-blood Collection / Unknown 01/17/2024 6:41 PM CDT 01/17/2024 7:21 PM CDT Caleb Garcia MD LAB - MICRO GENE RAL ORDERABLES [facility] Inf. Diseases Diag. Lab [address] [facility], Room [place] [phone] * Anaerobic Bacterial Culture Routine (01/17/2024 6:41 PM CDT) Culture No anaerobic organisms isolated ALEXANDRE 01/24/2024 8:09 AM CDT [facility] Tissue STRUCTURE OF RIGHT KNEE REGION / Unknown Non-blood Collection / Unknown 01/17/2024 6:41 PM CDT 01/17/2024 7:21 PM CDT Caleb Garcia MD LAB - MICRO GENE RAL ORDERABLES [facility] Inf. Diseases Diag. Lab [address] [facility], Room [address] * Anaerobic Bacterial Culture Routine (01/17/2024 6:41 PM CDT) Culture No anaerobic organisms isolated ALEXANDRE 01/24/2024 8:08 AM CDT [facility] Tissue STRUCTURE OF RIGHT KNEE REGION / Unknown Non-blood Collection / Unknown 01/17/2024 6:41 PM CDT 01/17/2024 7:20 PM CDT Caleb Garcia MD LAB - MICRO GENE RAL ORDERABLES Performing Organization Address City/[facility]/ZIP Co de Phone Number [facility] Inf. Diseases Diag. Lab [address] [facility], Room [place] [id number] * Anaerobic Bacterial Culture Routine (01/17/2024 6:41 PM CDT) Culture No anaerobic organisms isolated ALEXANDRE 01/24/2024 8:08 AM CDT [facility] Tissue STRUCTURE OF RIGHT KNEE REGION / Unknown Non-blood Collection / Unknown 01/17/2024 6:41 PM CDT 01/17/2024 7:19 PM CDT Caleb Garcia MD LAB - MICRO GENE RAL ORDERABLES [facility] Inf. Diseases Diag. Lab [address] [facility], [address] [place] [address] * Glucose by meter (01/17/2024 4:07 PM CDT) GLUCOSE BY METER POCT 97 70 - 99 mg/dL 01/17/2024 4:49 PM CDT LABORATORY POC Blood, Capillary BLOOD SPECIMEN / Unknown 01/17/2024 4:07 PM CDT 01/17/2024 4:49 PM CDT Jason Walker MD LAB - BEAKER POCT LABORATORY POC [facility] Lab [address] floor, [address] [address], [facility] * (ABNORMAL) Glucose by meter (01/17/2024 11:24 AM CDT) GLUCOSE BY METER POCT 123(H) 70 - 99 mg/dL 01/17/2024 12:06 PM CDT LABORATORY POC Blood, Capillary BLOOD SPECIMEN / Unknown 01/17/2024 11:24 AM CDT 01/17/2024 12:05 PM CDT Jason Walker MD LAB - BEAKER POCT LABORATORY POC [facility] Lab [address] 1[address] floor, [address] [address], [facility] * (ABNORMAL) Basic metabolic panel (01/17/2024 8:32 [...] 3.4 - 5.3 mmol/L 01/17/2024 9:27 AM CDT LABORATORY Chloride 103 98 - 107 mmol/L 01/17/2024 9:27 AM CDT LABORATORY Carbon Dioxide (CO2) 18(L) 22 - 29 mmol/L 01/17/2024 9:27 AM CDT LABORATORY Anion Gap 14 7 - 15 mmol/L 01/17/2024 9:27 AM CDT LABORATORY Urea Nitrogen 49.3(H) 8.0 - 23.0 mg/dL 01/17/2024 9:27 AM CDT LABORATORY Creatinine 3.77(H) 0.67 - 1.17 mg/dL 01/17/2024 9:27 AM CDT LABORATORY GFR Estimate 17(L) >60 mL/min/1. 73m2 01/17/2024 9:27 AM CDT LABORATORY Calcium 8.3(L) 8.8 - 10.2 mg/dL 01/17/2024 9:27 AM T LABORATORY Glucose 138(H) 70 - 99 mg/dL 01/17/2024 9:27 AM T LABORATORY Blood STRUCTURE OF RIGHT UPPER LIMB / Unknown Venipuncture / Unknown 01/17/2024 8:32 AM CDT 01/17/2024 8:57 AM CDT Jason Walker MD LAB - BLOOD ORDERAB LES LABORATORY [facility] Lab [address] 1[address] floor, [address] [place] [address], [facility] * (ABNORMAL) CBC with platelets (01/17/2024 8:32 [...] Walker MD LAB - BLOOD ORDERAB LES [facility] Lab [address] 1[address] floor, Room [address] * (ABNORMAL) CRP inflammation (01/17/2024 8:32 AM CDT) CRP Inflammation 330.61(H) <5.00 mg/L 01/17/2024 9:27 AM CDT LABORATORY Blood STRUCTURE OF RIGHT UPPER LIMB / Unknown Venipuncture / Unknown 01/17/2024 8:32 AM CDT 01/17/2024 8:57 AM CDT Stacy Bland PA-C LAB - BLOOD ORD ERABLES [facility] Lab [address] 1[address] floor, [address] [place] [address], [place] * (ABNORMAL) Glucose by meter (01/17/2024 5:47 AM CDT) GLUCOSE BY METER POCT 145(H) 70 - 99 mg/dL 01/17/2024 5:54 AM CDT LABORATORY POC Blood, Capillary BLOOD SPECIMEN / Unknown 01/17/2024 5:47 AM CDT 01/17/2024 5:54 AM CDT Jason Walker MD LAB - BEAKER POCT LABORATORY POC [facility] Lab [address] 1[address], [address] [place] [address], [facility] * (ABNORMAL) Glucose by meter (01/16/2024 10:15 PM CDT) GLUCOSE BY METER POCT 125(H) 70 - 99 mg/dL 01/16/2024 10:21 PM CDT LABORATORY POC Blood, Capillary BLOOD SPECIMEN / Unknown 01/16/2024 10:15 PM CDT 01/16/2024 10:21 PM CDT Jason GUSTAFSON - BEAKER POCT Performing Organization Address City/[facility]/ZIP Co de Phone Number LABORATORY POC [facility] Lab [address] 1[address], [address] [address], [facility] * Urine Culture (01/16/2024 4:40 PM CDT) Culture No Growth ALEXANDRE 01/18/2024 7:16 AM CDT [facility] Urine URINE SPECIMEN OBTAINED VIA [facility] / Unknown Non-blood Collection / Unknown 01/16/2024 4:40 PM CDT 01/16/2024 4:56 PM CDT Barby Urbano PA-C LAB - MICRO GE NERAL ORDERABLES [facility] Inf. Diseases Diag. Lab [address] [facility], [address] [place] [address], [place] * (ABNORMAL) UA Macroscopic with reflex to Microscopic and Culture (01/16/2024 4:40 PM CDT) Color Urine Red(A) Colorless, Straw, Light Yellow, Yellow 01/16/2024 4:57 PM CDT LABORATORY Appearance Urine Cloudy(A) Clear 01/16/20 4:57 PM CDT LABORATORY Glucose Urine Negative Negative mg/dL 01/16/2024 4:57 PM CDT LABORATORY Bilirubin Urine Negative Negative 4:57 PM CDT LABORATORY Ketones Urine Negative Negative mg/dL 01/16/2024 4:57 PM CDT LABORATORY Specific [place] Urine 1.008 1.003 - 1.035 01/16/2024 4:57 [...] Culture ordered based on laboratory criteria Barby HOYT-Christie LAB - URINE OR DERABLES LABORATORY [facility] Lab [address] 1[address], [address] [place] [address] * Blood Culture Hand, Left (01/16/2024 [...] - MICRO GENERAL ORDERABLES [facility] Inf. Diseases Diag. Lab [address] [facility], Room [address] [phone] * Blood Culture Hand, Left (01/16/2024 2:00 PM CDT) Culture No Growth 01/21/2024 5:31 PM CDT [facility] Blood STRUCTURE OF LEFT HAND / Unknown Venipuncture / Unknown 01/16/2024 2:00 PM CDT 01/16/2024 2:21 PM CDT Urbano Johnson MD LAB - MICRO GENERAL ORDERABLES [facility] Inf. Diseases Diag. Lab [address] [facility], Room [address] [phone] * CT Abdomen Pelvis w/o Contrast [...] related to previous catheterization. JASMIN ESPINOSA MD Narrative 01/16/2024 1:[address] ABDOMEN AND [...] to previous catheterization. JASMIN ESPINOSA MD Barby SAN CT ORDERAB LES * MRSA MSSA PCR, [...] LABORATORY - 01/16/2024 2:32 PM CDT The [employer]?? Xpert SA Nasal Complete assay performed in the [employer]?? Dx System is a qualitative in vitro [...] MICRO GEN ERAL ORDERABLES [facility] Inf. Diseases Diag. Lab [address] [facility], [address] [place] [phone] * Adult Type and Screen (01/16/2024 8:45 AM CDT) ABO/RH(D) A POS 01/16/2024 8:19 AM CDT BLOOD BANK Antibody Screen Negative Negative 01/16/2024 8:19 AM CDT BLOOD BANK SPECIMEN EXPIRATION DATE [id number] 01/16/2024 8:19 AM CDT BLOOD BANK Blood STRUCTURE OF RIGHT UPPER LIMB / Unknown Venipuncture / Unknown 01/16/2024 8:45 AM CDT 01/16/2024 8:57 AM CDT Stacy Bland PA-C LAB - BLOOD BAN K TEST ORDER Performing Organization Address [facility]/ZIP Co de Phone Number BLOOD BANK [address] [place] [address] * (ABNORMAL) Erythrocyte sedimentation rate auto (01/16/2024 8:45 AM CDT) Erythrocyte Sedimentation Rate 79(H) 0 - 20 mm/hr 01/16/2024 9:10 AM CDT LABORATORY Blood STRUCTURE OF RIGHT UPPER LIMB / Unknown Venipuncture / Unknown 01/16/2024 8:45 AM CDT 01/16/2024 8:57 AM CDT Stacy Bland PA-C LAB - BLOOD ORD ERABLES Performing Organization Address [facility] Co de Phone Number LABORATORY [facility] Lab [address] 1st [address], [address] [address] * (ABNORMAL) CRP inflammation (01/16/2024 8:45 AM CDT) CRP Inflammation 302.98(H) <5.00 mg/L 01/16/2024 9:24 AM CDT LABORATORY Blood STRUCTURE OF RIGHT UPPER LIMB / Unknown Venipuncture / Unknown 01/16/2024 8:45 AM CDT 01/16/2024 8:57 AM CDT Stacy Bland PA-C LAB - BLOOD ORD ERABLES Performing Organization Address City/[facility]/ZIP Co de Phone Number LABORATORY [facility] Lab [address] 1[address], [address] [place] [address] * (ABNORMAL) CBC with platelets (01/16/2024 [...] 150 - 450 10e3/uL 01/16/2024 9:01 AM T LABORATORY Blood STRUCTURE OF RIGHT UPPER LIMB / Unknown Venipuncture / Unknown 01/16/2024 8:45 AM CDT 01/16/2024 8:57 AM CDT Karlie Rosenthal MD LAB - BLOOD ORDERABL ES LABORATORY [facility] Lab [address], [address] [place] [address] * (ABNORMAL) Comprehensive metabolic panel (01/16/2024 8:45 AM CDT) [facility] Signature Sodium 132(L) 135 - 145 mmol/L 01/16/2024 [...] 3.4 - 5.3 mmol/L 01/16/2024 9:24 AM [facility] Carbon Dioxide (CO2) 19(L) 22 - 29 mmol/L 01/16/2024 9:24 AM [facility] LABORATORY Anion Gap 14 7 - 15 mmol/L 01/16/2024 9:24 AM [facility] LABORATORY Urea Nitrogen 48.1(H) 8.0 - 23.0 mg/dL 01/16/2024 9:24 AM [facility] LABORATORY Creatinine 4.49(H) 0.67 - 1.17 mg/dL 01/16/2024 9:24 AM [facility] LABORATORY GFR Estimate 14(L) >60 mL/min/1. 73m2 01/16/2024 9:24 AM [facility] LABORATORY Calcium 8.0(L) 8.8 - 10.2 mg/dL 01/16/2024 9:24 AM [facility] LABORATORY Chloride 99 98 - 107 mmol/L 01/16/2024 9:24 AM [facility] LABORATORY Glucose 119(H) 70 - 99 mg/dL 01/16/2024 9:24 AM [facility] LABORATORY Alkaline Phosphatase 122 40 - 150 U/L 01/16/2024 9:24 AM [facility] LABORATORY Comment:Reference intervals for this test were updated on 08/01/2023 to more accurately reflect our healthy population. There may be differences in the flagging of prior results with similar values performed with this method. Interpretation of those prior results can be made in the context of the updated reference intervals. AST 19 0 - 45 U/L 01/16/2024 9:24 AM [facility] LABORATORY Comment:Reference intervals for this test were updated on 02/27/2023 to more accurately reflect our healthy population. There may be differences in the flagging of prior results with similar values performed with this method. Interpretation of those prior results can be made in the context of the updated reference intervals. ALT 16 0 - 70 U/L 01/16/2024 9:24 AM [facility] LABORATORY Comment:Reference intervals for this test were updated on 02/27/2023 to more accurately reflect our healthy population. There may be differences in the flagging of prior results with similar values performed with this method. Interpretation of those prior results can be made in the context of the updated reference intervals. Protein Total 6.4 6.4 - 8.3 g/dL 01/16/2024 9:24 AM [facility] LABORATORY Albumin 2.5(L) 3.5 - 5.2 g/dL 01/16/2024 9:24 AM CDT LABORATORY Bilirubin Total 1.4(H) <=1.2 mg/dL 01/16/2024 9:24 AM CDT LABORATORY Blood STRUCTURE OF RIGHT UPPER LIMB / Unknown Venipuncture / Unknown 01/16/2024 8:45 AM CDT 01/16/2024 8:57 AM CDT Karlie Rosenthal MD LAB - BLOOD ORDERABL ES LABORATORY [facility] Lab [address], [address] [place] [address] * EKG 12-lead, tracing only (01/16/2024 7:10 AM CDT) Systolic Blood Pressure mmHg RADIOLOGY RESULTS Diastolic Blood Pressure mmHg RADIOLOGY RESULTS Ventricular Rate 92 BPM RAD IOLOGY RESULTS Atrial Rate 92 BPM RADIOLOG Y RESULTS RI Interval 164 ms RADIOLOG Y RESULTS QRS Duration 112 ms RADIOLO GY RESULTS QT 388 ms RADIOLOGY RESULTS QTc 479 ms RADIOLOGY RESULTS P Curtis 72 degrees RADIOLOGY RESULTS R AXIS 51 degrees RADIOLOGY RESULTS T Curtis 58 degrees RADIOLOGY RESULTS Interpretation ECG Sinus rhythm Normal ECG No previous ECGs available Confirmed by MD WILEY MICHAEL ([id number]) on 01/16/2024 4:56:17 PM RADIOLOGY RESULTS 01/16/2024 7:10 AM CDT 01/16/2024 4:56 PM CDT Karlie Rosenthal MD ECG ORDERABLES RADIOLOGY RESULTS documented in this encounter Visit Diagnoses Diagnosis 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 Pyogenic arthritis, lower leg Infection of total right knee replacement, initial encounter (H24) Septic joint (H) Pyogenic arthritis, site unspecified Staphylococcal arthritis of right knee (H) Pyogenic arthritis, lower leg documented in this encounter Administered Medications Inactive [...] $Given 01/21/2024 8:56 PM CDT 650 mg aspirin (ASA) EC tablet 325 mg [...] 2 g 200 mL/hr $New Bag 01/22/2024 8:42 PM CDT 2 g 200 [...] minimum of 2 minutes. famotidine (PEPCID) tablet 20 mg 20 mg, Oral, AT BEDTIME, First dose on Mon01/17/24 at 2200, Dose adjusted per renal dosing policy. Estimated CrCl = 30-60 mL/min. $Given 01/22/2024 10:05 PM CDT 20 mg $Given 01/21/2024 9:35 PM CDT 20 mg $Given 01/20/2024 9:09 PM CDT 20 mg hydrALAZINE (APRESOLINE) injection 10 mg 10 [...] $Given 01/18/2024 1:28 PM CDT 10 mg lidocaine (XYLOCAINE) 2 % external gel Urethral, ONCE PRN, mild pain, other, crandall insertion, Starting on Mon01/15/24 at 2326, For 1 dose lidocaine (XYLOCAINE) 2 % external gel Urethral, EVERY 4 HOURS PRN, mild pain, Starting on Mon01/16/24 at 1608 lisinopril (ZESTRIL) tablet 20 mg 20 mg, [...] reversal, Starting on Mon01/15/24 at 2155, Administer intramuscular if an intravenous route is [...] vomiting, Administer over 2-5 Minutes, Starting on 01/17/24 at 2117, This is Step 1 of [...] analgesic side effects. Hold while on IV CREDIT CARD ASSOCIATE or with regular IV opioid dosing. $Given [...] analgesic side effects. Hold while on IV CREDIT CARD ASSOCIATE or with regular IV opioid dosing. $Given 01/23/2024 4:17 AM CDT 5 mg $Given 01/22/2024 4:24 PM CDT 5 mg $Given 01/22/2024 9:10 AM CDT 5 mg polyethylene glycol (MIRALAX) Packet 17 g [...] $Given 01/18/2024 9:05 AM CDT 17 g pregabalin (LYRICA) capsule 75 mg 75 mg, [...] not resolved in 15-30 minutes, Notify provider. ROPivacaine (NAROPIN) 5 MG/ML 300 mg, ketorolac (TORADOL) 30 mg, EPINEPHrine (ADRENALIN) 0.6 mg in sodium chloride 0.9 % 100 mL (ORTHO FABIAN STANDARD DOSE) INTRA-ARTICULAR, FRAMING SPECIALIST TO O.R., Starting on Mon01/17/24 at 1720, For 1 dose, NOT FOR IV INJECTION. Used by provider at the end of surgery., Intra-procedure $Given 01/17/2024 6:50 PM CDT Operative Site/Surgi tom Site senna-docusate (SENOKOT-S/PERICOLACE) 8.6-50 MG per tablet 1 [...] Starting on Mon01/17/24 at 2116 sodium chloride 0.9% (bottle) irrigation PRN, Starting on Mon01/17/24 at 1742, Intra-procedure $Given 01/17/2024 5:42 PM CDT 1,000 mLs Operative Site/Surgi tom Site tamsulosin (FLOMAX) capsule 0.8 mg 0.8 mg, Oral, DAILY, First dose on Mon01/16/24 at 0900, Administer 30 minutes after the same meal each day. Capsules should be swallowed whole; do not crush chew or open. $Given 01/23/2024 8:31 AM CDT 0.8 mg $Given 01/22/2024 8:10 AM CDT 0.8 mg $Given 01/21/2024 9:23 AM CDT 0.8 mg tobramycin (NEBCIN) vial PRN, Starting on Mon01/17/24 at 1741, Intra-procedure $Given 01/17/2024 5:41 PM CDT 7.2 g Operative Site/Surgi tom Site vancomycin (VANCOCIN) topical powder PRN, Starting on Mon01/17/24 at 1740, Intra-procedure $Given 01/17/2024 5:40 PM CDT 12 g Operative Site/Surgi tom Site documented in this encounter Active and Recently [...] Jeremiah Mendoza RN)2120 ($New Bag - Provider: Syndi Mendez, YARED) 0530 ($New Bag - Provider: Sydni Mendez, YARED)1222 ($New Bag - Provider: Milli Jackson, YARED)2042 ($New Bag - Provider: Amy Barrera RN) 0411 ($New Bag - Provider: Carlos Gómez RN)1300 (Canceled Entry - Provider: Orders Generic Provider - Comment: Automatically canceled at discontinue of medication order) DULoxetine (CYMBALTA) DR capsule 120 mg 120 mg, Oral, DAILY, First dose on Mon01/16/24 at 0900 0923 ($Given - Provider: Jeremiah Mendoza, RN) 0811 ($Given - Provider: Milli Jackson, RN) 0831 ($Given - Provider: Leatha Morrissey, YARED) [...] 2204 (See Alternative - Provider: Amy Barrera, RN) famotidine (PEPCID) tablet 20 mg(Linked Group 1) 20 mg, Oral, AT BEDTIME, First dose on Mon01/17/24 at 2200, Dose adjusted per renal dosing policy. Estimated CrCl = 30-60 mL/min. 2134 ($Given - Provider: Sydni Mendez, RN) 2204 ($Given - Provider: Amy Barrera, RN) furosemide (LASIX) injection 40 mg (COMPLETED) 40 mg, Intravenous, 2 TIMES DAILY, Administer over 1-3 Minutes, First dose on Mon01/21/24 at 0900, For 2 doses 09 ($Given - Provider: Jeremiah Mendoza, RN)2034 ($Given - Provider: Sydni Mendez, YARED) furosemide (LASIX) tablet 40 mg 40 mg, Oral, DAILY, First dose on Mon01/21/24 at 0900, On hold since Mon01/21/2024 at 0816 until manually unheld 0816 (Held by provider - Provider: Susan Moody MD - Reason: Other)0900 (Automatically Held - Provider: Susan Moody MD) 0900 (Automatically Held - Provider: Susan Moody MD) 0900 (Automatically Held - Provider: Susan Moody MD)1321 (Unheld by provider - Provider: Orders Generic Provider) lisinopril (ZESTRIL) tablet 20 mg 20 mg, Oral, DAILY, First dose on Mon01/21/24 at 0900 0923 ($Given - Provider: Jeremiah Mendoza RN) 0811 ($Given - Provider: Milli Jackson RN) 0831 ($Given - Provider: Leatha Morrissey, YARED) mirtazapine (REMERON) tablet 15 mg 15 mg, Oral, AT BEDTIME, First dose on 01/15/24 at 2200 2135 ($Given - Provider: Sydni Mendez, RN) 2205 ($Given - Provider: Amy Barrera [...] RN)2030 ($Given - Provider: Sydni Mendez RN) 08 ($Given - Provider: Milli Jackson, YARED)2039 ($Given - Provider: Amy Barrera, YARED) 0831 ($Given - Provider: Leatha Morrissey, YARED) senna-docusate (SENOKOT-S/PERICOLACE) 8.6-50 MG per tablet 1 tablet(Linked Group 2) 1 tablet, Oral, 2 TIMES DAILY, First dose on Mon01/15/24 at 2200, If no bowel movement in 24 hours, increase to 2 tablets by mouth. Hold for loose stools. 09 (Not Given - Provider: Jeremiah Mendoza RN [...] RN) 0932 (See Alternative - Provider: Milli Jackson, RN)204 (See Alternative - Provider: Amy Barrera, YARED) 0938 (See Alternative - Provider: Leatha Morrissey [...] Mendez RN)1230 ($Given - Provider: Milli Jackson, YARED)2044 ($Given - Provider: Amy Barrera, YARED) 0414 ($Given - Provider: Carlos Gómez RN)1230 (Canceled Entry - Provider: Orders Generic Provider - Comment: Automatically canceled at discontinue of medication order) sodium chloride (PF) 0.9% PF flush 3 mL 3 mL, Intracatheter, EVERY 8 HOURS, First dose on Mon01/15/24 at 2200, to lock peripheral IV dormant line 0514 ($Given - Provider: Miguel Shah RN)1921 (Not Given - Provider: Jeremiah Mendoza RN - Reason: Other - Comment: duplicate)213 ($Given - Provider: Sydni Mendez RN) 0552 (Not Given - Provider: Sydni Mendez RN - Reason: Other - Comment: double order)1620 ($Given - Provider: Savita Belle RN)2206 (Not Given - Provider: Amy Barrera RN - Reason: Other - Comment: already given) 0558 (Not Given - Provider: Carlos Gómez RN - Reason: Other - Comment: given earlier) sodium chloride (PF) 0.9% PF flush 3 mL 3 mL, Intracatheter, EVERY 8 HOURS, First dose on Mon01/17/24 at 2130, to lock peripheral IV dormant line 0514 ($Given - Provider: Miguel Shah RN)1919 (Not Given - Provider: Jeremiah Mendoza RN - Reason: Other - Comment: given at start of shift)2123 ($Given - Provider: Sydni Mendez RN) 0551 ($Given - Provider: Sydni Mendez RN)1230 ($Given - Provider: Milli Jackson, RN)2128 ($Given - Provider: Amy Barrera RN) 05 ($Given - Provider: Carlos Gómez RN) tamsulosin (FLOMAX) capsule 0.8 mg 0.8 mg, Oral, DAILY, First dose on Mon01/16/24 at 0900, Administer 30 minutes after the same meal each day. Capsules should be swallowed whole; do not crush chew or open. 09 ($Given - Provider: Jeremiah Mendoza RN) 0810 [...] than 180 mmHg, Starting on Mon01/15/24 at 214 HYDROmorphone (DILAUDID) injection 0.1 mg(Linked Group 4) 0.1 mg, Intravenous, EVERY 2 HOURS PRN, moderate pain, Starting on Mon01/17/24 at 211, IF patient unable to take oral pain [...] PRN, nausea, vomiting, Starting on Mon01/17/24 at 211, This is Step 1 of nausea and [...] analgesic side effects. Hold while on IV CREDIT CARD ASSOCIATE or with regular IV opioid dosing. 0929 ($Given - Provider: Jeremiah Mendoza RN)1400 ($Given - Provider: Jeremiah Mendoza RN)2056 (See Alternative - Provider: Sydni Mendez RN) 0910 (See Alternative - Provider: Savita Belle RN)1624 (See Alternative - Provider: Savita Belle RN)2056 ($Given - Provider: Amy Barrera RN) 0417 (See Alternative - Provider: Carlos Gómez, YARED)0831 ($Given - Provider: Leatha Morrissey, YAERD) oxyCODONE (ROXICODONE) tablet 5 mg(Linked Group 7) 5 mg, Oral, EVERY 4 HOURS PRN, moderate pain, Starting on 01/20/24 at 1459, Hold oral PRN dose for analgesic side effects. Notify provider to assess for uncontrolled pain or analgesic side effects. Hold while on IV CREDIT CARD ASSOCIATE or with regular IV opioid dosing. 0929 [...] analgesic side effects. Hold while on IV CREDIT CARD ASSOCIATE or with regular IV opioid dosing. Or oxyCODONE (ROXICODONE) tablet 10 mgJump to med 10 mg, Oral, EVERY 4 HOURS PRN, severe pain, Starting on 01/20/24 at 1459, Hold oral PRN dose for analgesic side effects. Notify provider to assess for uncontrolled pain or analgesic side effects. Hold while on IV CREDIT CARD ASSOCIATE or with regular IV opioid dosing. Group [...] stools. documented in this encounter Care Teams Vibratory Pile Driver Relationship Specialty Start Date End Date Mary Ruggiero PA-C [address] [place] [address] PCP - General 01/16/24 documented as of this encounter
--- OUTSIDE RECORDS SUMMARY | 2024-02-12 18:04 | XMS_ITS | Data Portability ---
Author Organization [facility], [facility] Address [address] [place] [address] Care Team Providers Care Insect Control Inspector Name Role Phone ABBASIMICHELLE Primary Care Provider Assessment No assessment recorded. Plan of Treatment Reminders Order Date Submit Date Provider Last Modified By Organization Details Last Modified Time Details Appointments None recorded. Lab urinalysis , dipstick [address] [facility], [address], [address], [place], [address], 14:15:48 culture, urine [address] [facility], [address], [address], [place], [address], 11:45:39 biopsy, prostate [address] [facility], [address], [address], [place], [address], 14:52:36 Referral radiation oncologist [facility] - [facility] Please contact patient to schedule. 2020 021 [email or web address], [address], [place], [address], 09:30:23 Procedures None recorded. Surgeries None recorded. Imaging None recorded. Medication Orders Eligard 45 mg (6 month) subcutaneo us syringe 2020 [email or web address] Not available 23:18:46 Eligard 45 mg (6 month) subcutaneo us syringe 2020 yadira [facility] [place], [address], [place], [address], 13:33:17 gentamicin 40 mg/mL injection solution 2020 meli [facility] [place], [address], [place], [address], 10:57:20 Patient TargetsNo targets recorded. Patient Instructions Encounter Date Encounter Id Patient Instructions Last Modified By Organization Details Last Modified Time 07/05/2021 [id number] will do Eligard today and then refer to [facility] [email or web address] Not available 07/05/2021 13:17:22 Reason for Referral see in [facility]. Please contact patient to schedule. Referring Physician: Alexandria Segovia, Urology, Encounter Date: 07/05/2021 Results Created Date Observation Date Name Description Value Unit Range Abnormal Flag LastModifiedBy Organization Detail LastModifiedTime 08/30/2008/30/2021 UA DIP CS ADVAN TUS color -advantus YELLOW yellow Not Available [facility] [address] [facility] [address], [place], [address], 08/30/2021 14:15:48 08/30/2008/30/2021 UA DIP CS ADVAN TUS appearance -advantus CLEAR clear Not Available [facility] [address] [facility] [address], [place], [address], 08/30/2021 14:15:48 08/30/20 21 08/30/2021 UA DIP CS ADVAN TUS glucose -advantus NEGATI VE mg/dL negati ve Not Available [facility] [address] [facility] [address], [place], [address], 08/30/2021 14:15:48 12/13/20 21 08/30/2021 UA DIP CS ADVAN TUS bilirubin -advantus NEGATI VE negati ve Not Available [facility] [address] [facility] [address], [place], [address], 08/30/2021 14:15:48 08/30/20 21 08/30/2021 UA DIP CS ADVAN TUS ketones -advantus NEGATI VE mg/dL negati ve Not Available [facility] [address] [facility] [address], [place], [address], 08/30/2021 14:15:48 08/30/20 21 08/30/2021 UA DIP CS ADVAN TUS sp. gravity -advantus 1.025 1.010- 1.025 Not Available [facility] [address] [place] [address] [address], [place], [address], 08/30/2021 14:15:48 08/30/20 21 08/30/2021 UA DIP CS ADVAN TUS pH -advantus 6.0 5.0-8. 0 Not Available [facility] [address] [place] [address] [address], [place], [address], 08/30/2021 14:15:48 08/30/20 21 08/30/2021 UA DIP CS ADVAN TUS protein -advantus NEGATI VE mg/dL negati ve Not Available [facility] [address] [facility] [address], [place], [address], 08/30/2021 14:15:48 08/30/20 21 08/30/2021 UA DIP CS ADVAN TUS urobilinogen -advantus 0.2 normal Not Available [facility] [address] [facility] [address], [place], [address], 08/30/2021 14:15:48 08/30/20 21 08/30/2021 UA DIP CS ADVAN TUS nitrites -advantus NEGATI VE negati ve Not Available [facility] [address] [place] [address] [address], [place], [address], 08/30/2021 14:15:48 08/30/20 21 08/30/2021 UA DIP CS ADVAN TUS blood -advantus MODERA TE negati ve abnormal Not Available [facility] [address] [facility] [address], [place], [address], 08/30/2021 14:15:48 08/30/20 21 08/30/2021 UA DIP CS ADVAN TUS leukocytes -advantus NEGATI VE negati ve Not Available [facility] [address] [place] [address] [address], [place], [address], 08/30/2021 14:15:48 08/30/20 21 08/30/2021 UA DIP CS ADVAN TUS performed by Leonie Hunt Not Available [facility] [address] [place] [address] [address], [place], [address], 08/30/2021 14:15:48 08/30/20 21 08/30/2021 UA DIP CS ADVAN TUS total urine volume (mL) 80 /mL Not Available [facility] [address] [facility] [address], [place], [address], 08/30/2021 14:15:48 08/30/20 21 08/30/2021 UA MICRO SCOPI C U-WBC 0 - 2 [hpf] 0 - 2 Not Available [facility] [address] [facility] [address], [place], [address], 08/30/2021 14:15:51 08/30/20 21 08/30/2021 UA MICRO SCOPI C U-RBC 2 - 5 [hpf] 0 - 2 abnormal Not Available [facility] [place] [facility] [address] [facility] [address], [place], [address], 08/30/2021 14:15:51 08/30/20 21 08/30/2021 UA MICRO SCOPI C bacteria Small [hpf] negati ve abnormal Not Available [facility] [address], [place], [address], 08/30/2021 14:15:51 08/30/20 21 08/30/2021 UA MICRO SCOPI C squamous epi Negati ve /lpf negati ve,sma ll Not Available [facility] [address], [place], [address], 08/30/2021 14:15:51 08/30/20 21 08/30/2021 URINE CULTU RE final report Microb iology result s Not Available [facility] [address], [place], [address], 09/01/2021 11:45:39 08/07/20 20 07/29/2020 CT, abdom en + pelvi s, w/wo contr ast No observ ation record ed. [email or web address] Not Available 08/10/2020 19:14:07 06/01/20 21 06/01/2021 MRI, prost ate, w/wo contr ast No observ ation record ed. [email or web address] [facility] [address], [place], [address], 06/03/2021 13:57:06 08/24/20 21 06/21/2021 US, prost ate No observ ation record ed. Not Available 08/24/2021 11:02:19 Result Notes None recorded. Problems Name Status Onset Date Resolution Date Notes Provider Name and Address Organization Details Recorded Time Prediabetes Active 07/05/20 Bernice delgado [facility] 07/05/2021 12:54:33 Prostate specific antigen above reference range Active 07/05/20 21 ZONIA Oliveira [facility] 07/05/2021 12:54:41 Malignant tumor of prostate Active 07/05/20 ZONIA Oliveira [facility] 07/05/2021 12:54:47 Problem Notes None recorded. Procedures Surgical History Date Name Laterality Status Provider Name and Address Organization Details Recorded Time 10/18/202 1 Leda Xie null, [facility] 07/05/2021 13:23:32 1 Prostate Biopsy Procedure completed Alexandria Segovia MD [address] [facility],[address], [place], [address], [facility] 06/21/2021 14:56:07 1 URONAV completed Alexandria Segovia MD [address] [facility],[address], [place], [address], [facility] 06/21/2021 14:56:28 1 Blood Draw/CLINICAL IMPLEMENTATION SPECIALIST/PSA RESULTS completed Leonie delgado [facility] 06/21/2021 10:54:09 1 Gentamicin Injection completed Leonie Vernon [facility] 06/21/2021 10:55:45 0 Cystoscopy- male completed Ollie José MD [address] [facility],[address], [place], [address], [facility] 08/10/2020 15:43:14 9 Colonoscopy thru stoma spx completed Bernice Xie [facility] 07/05/2021 12:56:44 Imaging Results Imaging Date Name Status LastModified by Organiz ation Details LastModified Time 07/29/2020 CT, abdomen + pelvis, w/wo contrast completed [email or web address] Information not available 08/10/2020 19:14:07 06/01/2021 MRI, prostate, w/wo contrast completed [email or web address] [facility] [address], [place], [address], 06/03/2021 13:57:06 06/21/2021 US, prostate completed Information not available 08/24/2021 11:02:19 Procedure Notes None recorded. Medical Equipment None Reported. Allergies Allergen ID Allergen Name Allergen Category Reaction Reaction Severity Criticality Documentation Date Start Date Code Code System Note Provider Name and Address Organization Details Recorded Time 435265 metformin medicatio n Not available Not available Not available 07/05/2021 6809 [facility] Bernice delgado [facility] 1 12:54:11 Medications Name Sig Start Date Stop Date Status Note LastModified by Organization Details LastModified Time celecoxib 200 mg capsule TAKE ONE CAPSULE BY MOUTH TWO TIMES A DAY WITH MEALS active Not Available Not Available No t Available amoxicillin 500 mg capsule TAKE FOUR CAPSULES BY MOUTH ONE HOUR BEFORE DENTAL APPT. active Not Available Not Available No t Available prednisone 10 mg tablet active Not Available Not Available Not Available venlafaxine ER 75 mg capsule,ext ended release 24 hr TAKE 1 CAPSULE BY MOUTH ONCE A DAY WITH A MEAL. TOTAL DOSE 225MG active Not Available Not Available No t Available doxycycline hyclate 100 mg capsule 08/10 completed Not Available Not Available Not Available trazodone 50 mg tablet active Not Available Not Available Not Available atorvastati n 10 mg tablet TAKE 1 TABLET BY MOUTH ONCE DAILY. active Not Available Not Available No t Available lisinopril 20 mg-hydrochl orothiazide 12.5 mg tablet TAKE 1 TABLET BY MOUTH ONCE DAILY. active Not Available Not Available No t Available ibuprofen 800 mg tablet active Not Available Not Available Not Available methylpheni date 5 mg tablet TAKE ONE TABLET BY MOUTH TWO TIMES A DAY active Not Available Not Available No t Available prednisone 20 mg tablet active Not Available Not Available Not Available venlafaxine ER 150 mg capsule,ext ended release 24 hr TAKE 1 CAPSULE BY MOUTH DAILY WITH THE EVENING MEAL. TAKE ALONG WITH 75MG CAPSULE (TOTAL DOSE IS 225MG) active Not Available Not Available No t Available topiramate 25 mg tablet TAKE 1 TABLET BY MOUTH AT BEDTIME X 14 NIGHTS THEN INCREASE TO 2 TAB AT BEDTIME X 14 NIGHTS THEN 3 TABS AT BEDTIME THEREAFTE R active Not Available Not Available No t Available ciprofloxac in 500 mg tablet 08/10 completed Not Available Not Available Not Available aspirin 81 mg tablet,jacinto yed release TAKE ONE TABLET BY MOUTH TWO TIMES A DAY WITH MEALS active Not Available Not Available No t Available triamcinolo ne acetonide 0.1 % topical cream active Not Available Not Available Not Available nortriptyli ne 25 mg capsule TAKE ONE CAPSULE BY MOUTH AT BEDTIME active Not Available Not Available No t Available cefadroxil 500 mg capsule TAKE 1 CAPSULE BY MOUTH TWICE A DAY active Not Available Not Available No t Available oxycodone-a cetaminophe n 5 mg-325 mg tablet TAKE 1 TABLET BY MOUTH EVERY 6 HOURS IF NEEDED FOR KNEE PAIN. MAXIMUM 4000MG ACETAMINO PHEN PER 24 HOURS. active Not Available Not Available No t Available rifampin 300 mg capsule active Not Available Not Available Not Available tamsulosin 0.4 mg capsule TAKE 1 CAPSULE BY MOUTH DAILY AFTER A MEAL active Not Available Not Available No t Available cephalexin 500 mg capsule 08/10 completed Not Available Not Available Not Available triamcinolo ne acetonide 0.1 % topical ointment APPLY TO AFFECTED AREAS TWO TIMES A DAY active Not Available Not Available No t Available buspirone 10 mg tablet TAKE ONE TABLET BY MOUTH 2 TO 3 TIMES DAILY active Not Available Not Available No t Available dapsone 25 mg tablet active Not Available Not Available No t Available betamethaso ne dipropionat e 0.05 % topical cream active Not Available Not Available Not Available gabapentin 300 mg capsule active Not Available Not Available Not Available aspirin 81 mg chewable tablet active Not Available Not Available Not Available hydroxyzine HCl 25 mg tablet active Not Available Not Available Not Available furosemide 20 mg tablet active Not Available Not Available Not Available ergocalcife rol (vitamin D2) 1,250 mcg (50,000 unit) capsule TAKE 1 CAPSULE BY MOUTH ONCE WEEKLY FOR 8 WEEKS active Not Available Not Available No t Available levofloxaci n 500 mg tablet TAKE 1 TABLET EVERY 24 HOURS BY ORAL ROUTE. active Not Available Not Available No t Available gentamicin 40 mg/mL injection solution Take 160 mg by injection route. 2020 active Not Available Not Available Not Avai lable zolpidem 10 mg tablet TAKE 1 TABLET BY MOUTH AT BEDTIME IF NEEDED FOR SLEEP active Not Available Not Available No t Available bupropion HCl XL 150 mg 24 hr tablet, extended release TAKE ONE TABLET BY MOUTH EVERY MORNING active Not Available Not Available No t Available eszopiclone 2 mg tablet active Not Available Not Available Not Available Eligard 45 mg (6 month) subcutaneou s syringe Inject 1 syringe by subcutane ous route. 2020 active Not Available Not Available Not Avai lable pregabalin 75 mg capsule TAKE 1 CAPSULE AT BEDTIME X 1 WEEK THEN INCREASE TO 1 CAPSULE TWO TIMES A DAY THEREAFTE R active Not Available Not Available No t Available FeroSul 325 mg (65 mg iron) tablet TAKE 1 TABLET BY MOUTH DAILY WITH A MEAL active Not Available Not Available No t Available oxycodone 10 mg tablet TAKE 1 TABLET BY MOUTH 2 TIMES A DAY active Not Available Not Available No t Available Vitals Date Recorded Body height Body mass index (BMI) Body weight Provider Name and Address Organization Details Last Updated DateTime 08/10/2020 182.88 cm 44.8 kg/m2 415801.48 g Trudy Stein [facility] 08/10/2020 14:38:44 Date Recorded Body height Heart rate Systolic blood pressure Diastolic blood pressure Provider Name and Address Organization Details Last Updated DateTime 06/21/2021 182.88 cm 84 /min 143 mm[Hg] 83 mm[Hg] Leonie Saulo [facility] 06/21/2021 11:01:30 Date Recorded Body height Body mass index (BMI) Body weight Provider Name and Address Organization Details Last Updated DateTime 06/21/2021 182.88 cm 44.8 kg/m2 266687.48 g Siddharth Torres [facility] 06/21/2021 11:59:17 Date Recorded Body height Body mass index (BMI) Body weight Provider Name and Address Organization Details Last Updated DateTime 07/05/2021 182.88 cm 44.8 kg/m2 098892.48 g Bernice Xie [facility] 07/05/2021 12:53:44 Date Recorded Body height Body mass index (BMI) Body weight Provider Name and Address Organization Details Last Updated DateTime 08/30/2021 182.88 cm 44.8 kg/m2 762123.48 nicole Siddharth Torres [facility] 08/30/2021 12:45:54 Social History Question Answer Notes LastModified by Organizat ion Details LastModified Time Tobacco Smoking Status [facility] 14:39:14 What Is Your Level Of Alcohol Consumption? Occasional [email or web address] Information not available 08/10/2020 What Is Your Level Of Caffeine Consumption? Moderate [email or web address] Information not available 08/10/2020 Do You Or Have You Ever Used E-cigarettes Or Vape? Never Used Electronic Cigarettes [email or web address] Information not available 08/10/2020 Race White Information no t available 07/05/2021 Ethnicity Not /Latin o [email or web address] Information not available 08/10/2020 Preferred Language Thai [email or web address] Information not available 08/10/2020 Recreational Drug Use No Information not available 07/05/2021 What Was The Date Of Your Most Recent Tobacco Screening? 08/30/2021 Information not available 08/30/2021 What Is Your Relationship Status? Information not available 07/05/2021 Do You Or Have You Ever Used Smokeless Tobacco? Never Used Smokeless Tobacco [email or web address] Information not available 08/10/2020 Do You Use Any Illicit Or Recreational Drugs? No Information not available 06/21/2021 Sex: Male Functional Status None recorded. Mental Status None recorded. Family History Relationship Description Onset Age of this Age Resolved Age Notes Brother Family history of prostate cancer Brother Exposure to Agent [place] Paternal Grandfather Family history of prostate cancer Sister Leukemia Sister Family history of breast cancer Medical History Condition Response Diabetes N Bleeding Disorder N High Blood Pressure Y Kidney Stones N High Cholesterol Y Heart Disease N Cancer Y Lung Disease N Depression Y Past Encounters Encounter ID Performer Location Encounter Start Date Encounter Closed Date Diagnosis/Indication Diagnosis SNOMED-CT Code [id number] Ollie José MD [address] [address] 08/10/2020 14:21:14 2020 10:18:20 Microscopic hematuria [id number] Benign pro static hyperplasia with outflow obstruction [id number] Leonie Salazarie [address] [address] 06/21/2021 10:42:39 06/21/2021 11:08:51 Prostate specific antigen above reference range [id number] Alexandria Segovia MD [address] [address] 06/21/2021 10:44:16 06/21/2021 15:16:34 Prostate specific antigen above reference range [id number] Bernice Xie [facility] [address] [address] 07/05/2021 12:39:15 07/05/2021 13:54:22 Malignant tumor of prostate 273108058 Carcinoma of prostate 25 0547568 [id number] Alexandria Segovia MD [address] [address] 08/30/2021 12:32:35 09/01/2021 10:56:34 Jayme hematuria [id number] Health Concerns Section Related Observation LastModified by Organization Detai ls LastModified Time None Recorded Concern Status LastModified by Organization Details LastModified Time None Recorded Advance Directives Directive None Recorded Payers Encounter Date Sequence Insurance Name Policy Number Policy Buckley Covered Member ID Buckley Member ID Guarantor Name 08/30/2021 1 PREFERREDONE [id number] Osvaldo J Freed [id number] Osvaldo Freed 07/05/2021 1 PREFERREDONE [id number] Osvaldo J Freed [id number] Osvaldo Freed 06/21/2021 1 PREFERREDONE [id number] Osvadlo J Freed [id number] Osvaldo Freed 06/21/2021 1 PREFERREDONE [id number] Osvaldo J Freed [id number] Osvaldo Freed 08/10/2020 1 PREFERREDONE [id number] Osvaldo J Freed [id number] Osvaldo Freed Notes Date Note Type Note Provider Name and Address Organization Details Recorded Time 08/10/2020 text/html HPI Notes: microhematuria. foiund incidental. DM physical no gross. no voiding issues. Had CT scan with abnormal appearance of the prostate with a prominent median lobe. Here for cystoscopy. Negative upper tract study. Ollie José MD [address] [place] [address],[address], [address], [facility] 08/10/2020 19:16:11 06/21/2021 text/html HPI Notes: patient here for uronav biopsy Alexandria Segovia MD [address] [place] [address],[address], [address], [facility] 06/21/2021 14:56:55 08/30/2021 text/html HPI Notes: patient is starting IMRT adjuvant radiation -- had red urine turns out he was taking a Beet extract and when he stopped the urine stopped appearing red Alexandria Segovia MD [address] [place] [address],[address] [place] [address], [address], [facility] 08/30/2021 13:38:48
[2024-02-12 18:26] LABS: Basophils Absolute Auto 0.04 K/uL (0.00-0.30); Basophils Percent Auto 0.8 % (0.0-3.0); Eosinophils Absolute Auto 0.22 K/uL (0.00-0.50); Eosinophils Percent Auto 4.6 % (0.0-7.0); Hematocrit 25.9 % (37.0-53.0); Immature Granulocytes Abs Auto 0.02 K/uL (0.00-0.30); Immature Granulocytes Pct Auto 0.4 %; Lymphocytes Percent Auto 15.2 % (20-44); Mean Corpuscular HGB Conc 31 gm/dL (32-36); Mean Corpuscular Hemoglobin 28 pg (26-34); Mean Corpuscular Volume 93 fL (80-100); Monocytes Percent Auto 13.7 % (0.0-11.0); Neutrophils Absolute Auto 3.09 K/uL (1.7-7.0); Neutrophils Percent Auto 65.3 % (42.0-72.0); Platelet Count* 153 K/uL (140-440); RDW Coefficient of Variation % 18.7 % (11.5-15.5); White Blood Count* 4.74 K/uL (4.50-11.00)
[2024-02-12 18:29] LABS: Hemoglobin* 7.9 gm/dL (13.5-17.5); Slide Review Reflex No
[2024-02-12 18:41] LABS: Chloride* 110 mmol/L (96-114)
[2024-02-12 18:42] LABS: Potassium* 4.5 mmol/L (3.6-5.1); Sodium* 139 mmol/L (135-149)
[2024-02-12 18:44] LABS: Creatinine* 0.7 mg/dL (0.5-1.5); Est. Creatinine Clearance* 79.76; Estimated Glomerular Filt Rate 102 ml/min
[2024-02-12 18:45] LABS: Anion Gap 5 mEq/L (7-15); Blood Urea Nitrogen* 23 mg/dL (7-30); Calcium* 8.4 mg/dL (8.4-10.6); Carbon Dioxide* 24 mmol/L (20-32); Glucose* 112 mg/dL (60-115)
== END 2024-02-12 20:15 | disposition home or self-care (01) ==
PROVIDERS: Emergency Provider Emergency Medicine; PCP Physician Assistant
DX: R31.9 Hematuria, unspecified (principal); D64.9 Anemia, unspecified; N39.0 Urinary tract infection, site not specified
CPT/HCPCS: 36415; 51702; 74176; 80048; 81001; 85025; 87086; 99284

== ENCOUNTER 2024-02-28 15:00 | Emergency (ER) | payer MEDICARE, BC, SELFPAY ==
[2024-02-28] VITALS (15 sets, daily range): BP systolic 138; BP diastolic 60–68; PULSE 84–100; RESP 24; TEMP 36.7; O2SAT 97–100; BMI 43.0
--- NOTE | 2024-02-28 15:10 | ED.GENADULT ---
HPI - General Adult General Date Seen: 02/28/24 Chief complaint: Shortness of Breath/Dyspnea Stated complaint: Needs picc line removed, labored breathing Time Seen by Provider: 02/28/24 15:10 History of Present Illness HPI narrative: 68-year-old male who I saw here in the ER about 2 weeks ago. 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. He was hospitalized at [facility] in January for right knee septic arthritis. He had MSSA and was put on a long course of IV antibiotics (Ancef). He was discharged home with a PICC line in place. He has completed his course of Ancef in his orthopedist doctors have cleared him to have his PICC line removed. He was supposed to have had removed by a visiting home nurse today but she was unable to complete the task. Apparently the PICC was held in place by a T or something that kept it from coming out. She sent him here to the ER because she was not able to remove it at home. He notes that his PICC nurse only pulled about a cm or so. Since then the skin has been sore around the PICC line insertion site. He has not noted any bleeding or swelling around the PICC. No swelling of his arm. Also of note he had urethral obstruction and urinary retention while in the hospital and required Urology to place catheter. I saw him with hematuria couple of weeks ago. We treated him for UTI with a course of antibiotics. Since then he has been able to arrange follow-up (with [facility], not [facility]) and has had his [place] catheter removed. He is voiding normally since then. He also notes that he has had a cough ever since he had a cold in November or December. Cough is sometimes productive. For the past couple of weeks he has had increasing peripheral edema affecting both of his legs. It is not exactly clear but it sounds like his weight previously had bound down to 298 and is up to 318 lb today. He notes increasing edema in both of his legs. No chest pain. He is more short of breath especially with exertion. And has been so for the past couple of weeks. No orthopnea. No abdominal pain or vomiting. Urination is normal. Related Data Home Medications ?Medication ?Instructions ?Recorded ?Confirmed alendronate 70 mg tablet 70 mg PO 02/12/24 atorvastatin 10 mg tablet 10 mg PO DAILY 02/12/24 02/28/24 calcitonin (salmon) 200 02/12/24 unit/actuation nasal spray cefazolin 10 gram solution for 02/12/24 injection celecoxib 200 mg capsule 200 mg PO BID PRN pain 02/12/24 02/12/24 clopidogrel 75 mg tablet 75 mg PO DAILY 02/12/24 02/28/24 duloxetine 60 mg capsule,delayed 120 mg PO DAILY 02/12/24 02/28/24 release famotidine 10 mg tablet (Acid 10 mg PO BID PRN indigestion 02/12/24 02/12/24 Controller) ferrous sulfate 325 mg (65 mg 325 mg PO DAILY 02/12/24 02/28/24 iron) tablet (FeroSul) hydroxyzine HCl 25 mg tablet mg PO 02/12/24 lisinopril 20 mg tablet 20 mg PO DAILY 02/12/24 02/28/24 mirtazapine 30 mg tablet 30 mg PO QPM 02/12/24 02/12/24 oxycodone 10 mg tablet mg PO 02/12/24 oxycodone 5 mg tablet 5 - 10 mg PO Q4H PRN pain 02/12/24 02/12/24 pregabalin 75 mg capsule 75 mg PO BID 02/12/24 02/28/24 tamsulosin 0.4 mg capsule 0.8 mg PO DAILY 02/12/24 02/28/24 Previous Rx's ?Medication ?Instructions ?Recorded furosemide 40 mg tablet 40 mg PO DAILY #7 tabs 02/28/24 Allergies Allergy/AdvReac Type Severity Reaction Status Date / Time metformin AdvReac Intermediate Diarrhea Verified 02/28/24 15:16 PFSH PFS Social History Smoking Status: Unknown if ever smoked Do you use any of these nicotine containing products: None How often do you have a drink containing alcohol: never How often do you have six or more drinks on one occasion: Never AUDIT-C Alcohol total score: 0 Non-prescribed substance use: denies use Exam Narrative: Exam Narrative: Constitutional: Appears well-developed and well-nourished. Alert. Conversant. Non toxic. Able to speak full sentences. Oxygen 100% room air. Does seem to have some deeper respirations today than he did during his last visit a couple of weeks ago. HENT: Head: Atraumatic. Nose: Nose normal. Mouth/Throat: Oral mucosa is clear and moist. no trismus. Pharynx normal. Tonsils symmetric. No tonsillar enlargement, erythema, or exudate. Eyes: Conjunctivae normal. EOM normal. Pupils equal, round, and reactive to light. No scleral icterus. Neck: Normal range of motion. Neck supple. No tracheal deviation present. No JVD Cardiovascular: Normal rate, regular rhythm. No gallop. No friction rub. No murmur heard. Symmetric radial artery pulses PICC line insertion site in the right mid upper arm. Skin around the insertion site looks good. No obvious erythema. No bleeding. No. Drainage. No swelling of the upper extremity. No signs of bruising or hematoma around the PICC. Pulmonary/Chest: Effort normal. No stridor. No respiratory distress. No wheezes. No rales. No rhonchi . No tenderness. Abdominal: Soft. No distension. No mass. No tenderness. No rebound. No guarding. Musculoskeletal: RUE: Normal range of motion. No tenderness. No deformity LUE: Normal range of motion. No tenderness. No deformity RLE: Normal range of motion. 2+ pitting edema. No tenderness. No deformity. Healing right knee incision. No surrounding erythema or warmth. LLE: Normal range of motion. 2+ pitting edema. No tenderness. No deformity Lymph: No cervical adenopathy. Neurological: Alert and oriented to person, place, and time. Normal strength. CN II-VII intact. No sensory deficit. GCS eye subscore is 4. GCS verbal subscore is 5. GCS motor subscore is 6. Normal coordination Skin: Skin is warm and dry. No rash noted. No pallor. Normal capillary refill. Psychiatric: Normal mood. Normal affect. Const: Vital Signs, click to edit/add: Vital Signs - 24 hr 02/28/24 15:08 02/28/24 15:09 02/28/24 15:15 Temperature Pulse Rate 90 87 87 Pulse Rate [Pulse Oximeter] Respiratory Rate Blood Pressure 138/60 Blood Pressure [Ri ght Upper Arm] Pulse Oximetry 100 99 100 Oxygen Delivery Me thod 02/28/24 15:16 02/28/24 15:30 02/28/24 15:47 Temperature 98.1 F Pulse Rate 85 96 Pulse Rate [Pulse Oximeter] 100 Respiratory Rate 24 Blood Pressure Blood Pressure [Ri ght Upper Arm] 138/68 Pulse Oximetry 100 97 99 Oxygen Delivery Me thod Room Air 02/28/24 16:00 02/28/24 16:15 02/28/24 16:30 Temperature Pulse Rate 86 87 84 Pulse Rate [Pulse Oximeter] Respiratory Rate Blood Pressure Blood Pressure [Ri ght Upper Arm] Pulse Oximetry 100 97 100 Oxygen Delivery Me thod 02/28/24 16:45 02/28/24 17:00 02/28/24 17:15 Temperature Pulse Rate 84 85 98 Pulse Rate [Pulse Oximeter] Respiratory Rate Blood Pressure Blood Pressure [Ri ght Upper Arm] Pulse Oximetry 100 100 100 Oxygen Delivery Me thod 02/28/24 17:30 02/28/24 17:45 02/28/24 18:00 Temperature Pulse Rate 88 90 90 Pulse Rate [Pulse Oximeter] Respiratory Rate Blood Pressure Blood Pressure [Ri ght Upper Arm] Pulse Oximetry 100 100 100 Oxygen Delivery Me thod Course Vital Signs Vital signs: Initial Vital Signs Pulse Rate 90 02/28/24 15:08 Pulse Oximetry 100 02/28/24 15:08 Vital Signs Pulse Rate 90 02/28/24 15:08 Pulse Oximetry 100 02/28/24 15:08 Temperature 98.1 F 02/28/24 15:16 Pulse Rate 90 02/28/24 18:00 Respiratory Rate 24 02/28/24 15:16 Blood Pressure 138/68 02/28/24 15:16 Pulse Oximetry 100 02/28/24 18:00 Oxygen Delivery Method Room Air 02/28/24 15:16 Medications Administered Medications: Discontinued Medications Generic Name Dose Route Start Last Admin Trade Name Freq PRN Reason Stop Dose Admin Furosemide 40 mg 02/28/24 17:36 02/28/24 18:18 Furosemide 40 Mg Tablet PO 02/28/24 17:37 40 mg ONCE ONE Administration Medical Decision Making [facility] Narrative Medical decision making narrative: This is a 68-year-old gentleman with a very complex recent past medical history. 1. His primary reason for being sent to the ER today was that he was due to have his PICC line removed (he completed his course of antibiotics for his right knee infection) and his home nurse was not able to remove it at home. Chest x-ray does confirm that the tip of the PICC appears to be in the SVC. Exam does not show any evidence for any obvious displacement or hematoma or infection around the PICC. Nurses were able to remove the PICC using sterile technique while he patient was here in the ER. 2. He has also had a cough for the past couple of months and has developed some worsening bilateral lower extremity edema for the past few weeks with an approximate 15-20 lb weight gain over that same time for him. He reports he has a history of fluid overload in the past and had previously been on Lasix but is no longer on it. Workup here in the ER includes chest x-ray showing clear lungs and no signs of pulmonary edema. Laboratory workup shows normal troponin and low BNP which would argue against any active CHF. He does have creatinine of 1.2 which is near baseline. No evidence for any new for nephrotic syndrome or renal failure. Oxygen saturations are 100% room air. Vital signs and blood pressure are stable. For his fluid overload and edema we will start him on furosemide 40 mg daily once a day for a week. He will follow-up with his primary care within 1 week to have repeat labs including creatinine and potassium recheck. Primary care can determine whether not he has a longer course of diuresis. He is cautioned to return to the ER if he does develop worsening cough, trouble breathing, or any symptoms. Chest x-ray does not show any evidence for pneumonia. White blood cell count is normal at 5.1. No clear infection causing his fluid overload at this time. No clear evidence for sepsis. He does have a chronic cough. No wheezing or bronchospasm. Would hold off on COVID testing given the duration of the cough. He is well outside the window for Paxlovid or other antivirals. 3. He is found to be anemic on his laboratory workup. Hemoglobin today is 7.3. This is dropped from 7.9 (hemoglobin check when he was here in the ER on 02/11). Relatively stable over the intervening 2 weeks. He is already on iron supplements for previously known anemia and says that his stools have been black ever since starting on the iron. No clear symptoms of GI bleeding. He did have 1 stool this morning that had small amounts of bright red blood on it but subsequent stools, including 1 here in the ER, have no visible blood. He reports that he had had a colonoscopy a few months ago that was normal. Differential for his anemia would include possible chronic GI bleeding, anemia of chronic disease, iron deficiency, among others. I suspect that some of his symptoms including overall weakness, dyspnea, are probably attributable to his anemia. Vital signs are stable at this point. With hemoglobin greater than 7, at this point does not mandate blood transfusion. Consider hospitalization for hemoglobin monitoring and further workup. Patient would strongly prefer not to be hospitalized. Therefore will try an outpatient workup strategy. Will continue on his iron supplement. Recommend follow-up with primary care for further workup within 1 week. He also recalls that he had previously been referred to an oncologist or marble cutter operator but had not yet had a chance to schedule that appointment. He will S call tomorrow to schedule his hematology appointment. Precautions for return to the ER reviewed. Lab Data Labs: Lab Results 02/28/24 Range/Units 16:23 WBC 5.11 (4.50-11.00) K/uL RBC 2.45 L (4.30-5.90) m/uL Hgb 7.3 L* (13.5-17.5) gm/dL Hct 23.7 L (37.0-53.0) % MCV 97 (80-100) fL MCH 30 (26-34) pg MCHC 31 L (32-36) gm/dL RDW Coeff of Renee 20.7 H (11.5-15.5) % Plt Count 129 L (140-440) K/uL Neut % (Auto) 64.7 (42.0-72.0) % Lymph % (Auto) 14.1 L (20-44) % [place] % (Auto) 13.9 H (0.0-11.0) % Eos % (Auto) 6.3 (0.0-7.0) % Baso % (Auto) 0.6 (0.0-3.0) % Neut # (Auto) 3.31 (1.7-7.0) K/uL Lymph # (Auto) 0.70 L (0.90-2.90) K/uL [place] # (Auto) 0.70 (0.00-0.90) K/UL Eos # (Auto) 0.32 (0.00-0.50) K/uL Baso # (Auto) 0.03 (0.00-0.30) K/uL Abs Immat Gran (auto) 0.02 (0.00-0.30) K/uL Imm/Tot Granulo (auto) 0.4 % Diff Slide Review Acceptable Review (Acceptable) Sodium 142 (135-149) mmol/L Potassium 4.5 (3.6-5.1) mmol/L Chloride 115 H (96-114) mmol/L Carbon Dioxide 22 (20-32) mmol/L Anion Gap 5 L (7-15) mEq/L BUN 61 H (7-30) mg/dL Creatinine 1.2 (0.5-1.5) mg/dL Estimated Creat Clear 66.46 Estimated GFR 67 ml/min Glucose 125 H (60-115) mg/dL Calcium 8.8 (8.4-10.6) mg/dL Troponin I < 0.01 L (0.01-0.04) ng/mL NT-Pro-B Natriuret Pep 97 pg/mL Imaging Data Chest x-ray: Attestation: I have reviewed the pertinent imaging results. My impression: Clear lungs. No pulmonary edema. No focal infiltrates. No pneumothorax. PICC line appears to be in place from the right upper extremity and appears to end in the superior vena cava.- read by Dr. Torres Radiologist's impression: IMPRESSION: No acute cardiopulmonary process. ECG Data Attestation: I personally reviewed and interpreted this ECG as follows: Interpretation: Normal sinus rhythm Rate: 85 SC: 158. No delta waves QRS axis: Normal axis. No pathologic Q-waves ST segment/T wave: Nonspecific T-wave flattening. No ST segment elevation or depression. QTc: 471 Discharge Plan Discharge Clinical Impression: Edema, peripheral, Anemia, Encounter for removal of peripherally inserted central catheter (PICC) Patient Disposition: Home, Self-Care Condition: Stable Instructions: Leg Edema (ED), Anemia (ED), Removal of a Central Line, PICC, or Midline Catheter (ED) Additional Instructions: As we discussed, please follow-up with your regular doctor and your marble cutter operator as soon as possible. Call your doctors tomorrow to arrange ER follow-up appointments. Continue on your current iron supplement. If you have worsening symptoms of anemia such as weakness, dizziness, shortness of breath, please see your doctor or come back to the ER right away to be rechecked. If you notice other unusual bleeding or bruising, more bloody or black stools, or any other problems, return to the ER or see her doctor right away. For your fluid overload start on the diuretic (furosemide). Take it once daily for the next week. He should follow-up with your regular doctor within a 1 week to recheck your labs and determine whether not you need to stay on furosemide. Continue on your other medications. Prescriptions: New furosemide 40 mg tablet 40 mg PO DAILY Qty: 7 2RF No Action celecoxib 200 mg capsule 200 mg PO BID PRN (Reason: pain) famotidine [Acid Controller] 10 mg tablet 10 mg PO BID PRN (Reason: indigestion) atorvastatin 10 mg tablet 10 mg PO DAILY lisinopril 20 mg tablet 20 mg PO DAILY alendronate 70 mg tablet 70 mg PO clopidogrel 75 mg tablet 75 mg PO DAILY cefazolin 10 gram recon soln Patient Comments: [NO ORIGINAL SIG] tamsulosin 0.4 mg capsule 0.8 mg PO DAILY calcitonin (salmon) 200 unit/actuation spray,non-aerosol Patient Comments: [NO ORIGINAL SIG] mirtazapine 30 mg tablet 30 mg PO QPM ferrous sulfate [FeroSul] 325 mg (65 mg iron) tablet 325 mg PO DAILY hydroxyzine HCl 25 mg tablet PO oxycodone 5 mg tablet 5 - 10 mg PO Q4H PRN (Reason: pain) duloxetine 60 mg capsule,delayed release(DR/EC) 120 mg PO DAILY pregabalin 75 mg capsule 75 mg PO BID oxycodone 10 mg tablet PO Follow Up/Referrals: Mary Ruggiero PA-C [Primary Care Provider] - Stand Alone Forms: Interlude Info Instructions
--- NOTE | 2024-02-28 15:31 | CRLHL7_ITS ---
For Patients: As a result of the Century Cures Act, medical imaging exams and procedure reports are released immediately into your electronic medical record. You may view this report before your referring provider. If you have questions, please contact your health care provider. INDICATION: Dyspnea. TECHNIQUE: Chest radiographs, 2 views. COMPARISON: None. FINDINGS: Cardiovascular/Mediastinum: Normal heart size. Unremarkable. Lungs: No focal consolidation. Linear band like opacification of the lung bilaterally, likely subsegmental atelectasis and/or scarring. Airways: Trachea remains midline. Pleura: No pleural effusions or pneumothorax. Bones: No acute osseous abnormalities. Mild degenerative changes of the thoracic spine. Upper abdomen: Unremarkable. IMPRESSION: No acute cardiopulmonary process. Dictated by Ramana Ellsworth MD @ 02/28/2024 4:06:37 PM (Electronically Signed)
[2024-02-28 16:43] LABS: Basophils Absolute Auto 0.03 K/uL (0.00-0.30); Basophils Percent Auto 0.6 % (0.0-3.0); Eosinophils Absolute Auto 0.32 K/uL (0.00-0.50); Eosinophils Percent Auto 6.3 % (0.0-7.0); Hematocrit 23.7 % (37.0-53.0); Immature Granulocytes Abs Auto 0.02 K/uL (0.00-0.30); Immature Granulocytes Pct Auto 0.4 %; Lymphocytes Percent Auto 14.1 % (20-44); Mean Corpuscular HGB Conc 31 gm/dL (32-36); Mean Corpuscular Hemoglobin 30 pg (26-34); Mean Corpuscular Volume 97 fL (80-100); Monocytes Percent Auto 13.9 % (0.0-11.0); Neutrophils Absolute Auto 3.31 K/uL (1.7-7.0); Neutrophils Percent Auto 64.7 % (42.0-72.0); Platelet Count* 129 K/uL (140-440); RDW Coefficient of Variation % 20.7 % (11.5-15.5); Red Blood Count 2.45 m/uL (4.30-5.90); White Blood Count* 5.11 K/uL (4.50-11.00)
[2024-02-28 16:44] LABS: Hemoglobin* 7.3 gm/dL (13.5-17.5); Slide Review Reflex Yes
[2024-02-28 16:52] LABS: Chloride* 115 mmol/L (96-114); Potassium* 4.5 mmol/L (3.6-5.1); Sodium* 142 mmol/L (135-149)
[2024-02-28 16:55] LABS: Anion Gap 5 mEq/L (7-15); Blood Urea Nitrogen* 61 mg/dL (7-30); Carbon Dioxide* 22 mmol/L (20-32); Creatinine* 1.2 mg/dL (0.5-1.5); Est. Creatinine Clearance* 66.46; Estimated Glomerular Filt Rate 67 ml/min; Glucose* 125 mg/dL (60-115)
[2024-02-28 16:56] LABS: Calcium* 8.8 mg/dL (8.4-10.6)
[2024-02-28 17:09] LABS: NT Pro B Type NatriureticPept* 97 pg/mL; Troponin I* < 0.01 ng/mL (0.01-0.04)
[2024-02-28 17:12] LABS: Slide Review Acceptable Review (Acceptable)
--- NOTE | 2024-02-28 17:45 | ED.NURSE ---
PICC line pulled out, pt tolerated this well. No drainage, no oozing from the wound site. Sercuracath removed with no problems. PICC appeared intact, measured at 23 cm.
[2024-02-28] MEDS: FUROSEMIDE 40 MG TABLET PO (18:18)
== END 2024-02-28 18:25 | disposition home or self-care (01) ==
PROVIDERS: Emergency Provider Emergency Medicine; PCP Physician Assistant
DX: R60.9 Edema, unspecified (principal); D64.9 Anemia, unspecified
CPT/HCPCS: 36415; 71046; 80048; 83880; 84484; 85025; 93005; 99284; 99285; A9270

== ENCOUNTER 2024-07-31 07:07 | Outpatient (CLI) | payer MEDICARE, BC, SELFPAY ==
--- NOTE | 2024-07-31 07:15 | CRLHL7_ITS ---
For Patients: As a result of the Century Cures Act, medical imaging exams and procedure reports are released immediately into your electronic medical record. You may view this report before your referring provider. If you have questions, please contact your health care provider. INDICATION: Decompensated hepatic cirrhosis TECHNIQUE: Ultrasound abdomen limited. Sonographic images of the right upper quadrant were obtained using you-scale and color Doppler images. COMPARISON: CT abdomen pelvis 02/12/2024 FINDINGS: Liver: Nodular contour with coarse echotexture. No suspicious masses. No intrahepatic biliary dilatation. Gallbladder: No stones or sludge. Normal wall thickness. No pericholecystic fluid. Small polyp measuring 0.4 x 0.4 cm. Common bile duct: 5 mm. Pancreas: The visualized pancreas is mildly hyperechoic and edematous Right kidney: Normal in size. Normal echotexture and cortex. No suspicious masses, stones, or hydronephrosis. Vasculature: Proximal abdominal aorta and IVC are unremarkable. IMPRESSION: 1. Cirrhotic liver with minimal abdominal ascites 2. The visualized pancreas is mildly hyperechoic and edematous. This may be reactive, although CT can be performed for further evaluation if there is suspicion for pancreatic pathology. 3. Subcentimeter gallbladder polyp not meeting size criteria for additional follow-up Dictated by Abida Goldstein MD @ 07/31/2024 2:46:09 PM (Electronically Signed)
== END 2024-07-31 07:08 | disposition home or self-care (01) ==
LOC: US 07:08
PROVIDERS: PCP Physician Assistant; Visit Provider Physician Assistant
DX: K74.60 Unspecified cirrhosis of liver (principal)
CPT/HCPCS: 76705

== ENCOUNTER 2024-08-27 09:45 | Inpatient (IN) | payer MEDICARE, BC, SELFPAY ==
[2024-08-27] VITALS (8 sets, daily range): BP systolic 126–154; BP diastolic 71–75; PULSE 80–87; RESP 16–20; TEMP 36.3–36.6; O2SAT 97–100; BMI 35.8; BMI 35.1
--- NOTE | 2024-08-27 10:09 | ED_ITS ---
HPI - General Adult General Time Seen by Provider: 10:10 Date Seen: 08/27/24 Chief complaint: Weakness Stated complaint: sent by Mary Ruggiero for tests Time Seen by Provider: 08/27/24 09:47 Source: patient, family and RN notes reviewed Mode of arrival: ambulatory Limitations: no limitations History of Present Illness HPI narrative: This 69-year-old male is sent from clinic after he was in to see his primary care provider for weakness in his words. His primary care provider did refer him to us, she was concerned that he might have an acute delirium. His vitals in clinic were stable he reportedly had a blood pressure of 127/73, pulse of 87, 100% on room air. In his is present with him, she notes that his symptoms started last week on or Monday where he started to become more unsteady and weak. She notes he seems like he is dazed. He is on rifaximin but reportedly has not been taking his lactulose. His notes that he was have being 3 or 4 stools a day without the lactulose of they told him he probably did not need it. He states he feels shaky. He believes it is Monday, it is actually Monday, does know the year is 2023, knows where he is at. He has underlying liver cirrhosis, he has not had to have paracentesis yet. His states they were going to do 1 but there was not enough fluid. He also has underlying prostate cancer and is undergoing hyperbaric treatment for hematuria, has chronic bleeding and inflammation from complications. He [place] [facility] [place] had Lupron and radiation therapy about 2 years ago, had a complication of a catheter perforated his bladder. He had a suprapubic catheter placed and has had some hematuria. For the last 2 days he reportedly is just had jennifer blood per his primary care provider Dr. Ruggiero. He told nursing staff that he is just had hematuria for a day. His hemoglobins have reportedly been up and down per Dr. Ruggiero. About a month ago his hemoglobin was 8 but at [facility] about 2 weeks ago was reported to be 10. He normally is ambulatory in independently driving per Dr. Ruggiero's report. He maybe has a little bit of a cough per the report no chest pain, no abdominal pain, no nausea or vomiting. He states he has not been having fevers but when asked about chills and night sweats he states he has been having them, his is not appa rently look to think that this is credible but he states she just sleeps through this. He states he is having to change his clothes at night because of night sweats, when pressed on this he thinks maybe he last had this a week ago. He does have pain in his right knee, does feel that the pain has increased over the last week, his feels maybe a little longer. He is having pain with attempting to [place] late on this knee, this knee has been replaced twice and has had reportedly staph infection. His history of his right knee joint infection from review of his charts here was a knee replacement in 2019, became infected, revision in 2020. He was reportedly hospitalize if [facility] in January for right knee septic arthritis, MSSA, completed prolonged course of IV Ancef, did have a PICC line in place. He did have his PICC line removed here in February of 2024. He was also found to be anemic at 7.3 during the ER visit in February, opted for outpatient treatment and declined hospitalization. He did have hematuria and nitrite positive urine in 02/12/2024 but urine culture did not grow anything. Related Data Home Medications ?Medication ?Instructions ?Recorded ?Confirmed alendronate 70 mg tablet 70 mg PO 02/12/24 atorvastatin 10 mg tablet 10 mg PO DAILY 02/12/24 02/28/24 calcitonin (salmon) 200 02/12/24 unit/actuation nasal spray cefazolin 10 gram solution for 02/12/24 injection celecoxib 200 mg capsule 200 mg PO BID PRN pain 02/12/24 02/12/24 clopidogrel 75 mg tablet 75 mg PO DAILY 02/12/24 02/28/24 duloxetine 60 mg capsule,delayed 120 mg PO DAILY 02/12/24 02/28/24 release famotidine 10 mg tablet (Acid 10 mg PO BID PRN indigestion 02/12/24 02/12/24 Controller) ferrous sulfate 325 mg (65 mg 325 mg PO DAILY 02/12/24 02/28/24 iron) tablet (FeroSul) hydroxyzine HCl 25 mg tablet mg PO 02/12/24 lisinopril 20 mg tablet 20 mg PO DAILY 02/12/24 02/28/24 mirtazapine 30 mg tablet 30 mg PO QPM 02/12/24 02/12/24 oxycodone 10 mg tablet mg PO 02/12/24 oxycodone 5 mg tablet 5 - 10 mg PO Q4H PRN pain 02/12/24 02/12/24 pregabalin 75 mg capsule 75 mg PO BID 02/12/24 02/28/24 tamsulosin 0.4 mg capsule 0.8 mg PO DAILY 02/12/24 02/28/24 Previous Rx's ?Medication ?Instructions ?Recorded furosemide 40 mg tablet 40 mg PO DAILY #7 tabs 02/28/24 Allergies Allergy/AdvReac Type Severity Reaction Status Date / Time metformin AdvReac Intermediate Diarrhea Verified 02/28/24 15:16 Review of Systems Status of ROS: Reports: 6 or more systems reviewed and unremarkable except as noted in History and below [facility] Medical History (Updated 08/27/24 @ 12:24 by Griselda Tai MD) Prostate cancer ?C61 - Malignant neoplasm of prostate (ICD-10) Liver cirrhosis ?K74.60 - Unspecified cirrhosis of liver (ICD-10) Social History Smoking Status: Former smoker Do you use any of these nicotine containing products: None How often do you have a drink containing alcohol: never How often do you have six or more drinks on one occasion: Never AUDIT-C Alcohol total score: 0 Non-prescribed substance use: denies use service: No Exam Const: Vital Signs, click to edit/add: Vital Signs - 24 hr 08/27/24 09:47 08/27/24 09:55 08/27/24 11:16 Temperature 97.4 F L 97.9 F Pulse Rate Pulse Rate [Pulse Oximeter] 87 81 Respiratory Rate 20 18 Blood Pressure Blood Pressure [Ri ght Upper Arm] 146/72 H 142/72 H Pulse Oximetry 98 98 98 Oxygen Delivery Me thod Room Air Room Air 08/27/24 11:16 08/27/24 11:47 08/27/24 11:49 Temperature Pulse Rate 87 87 Pulse Rate [Pulse Oximeter] Respiratory Rate Blood Pressure 142/72 H 153/72 H Blood Pressure [Ri ght Upper Arm] Pulse Oximetry 97 98 Oxygen Delivery Me thod This 69-year-old male is hemodynamically stable and afebrile. He is alert and interactive, do have a sense that there might be some mild confusion in his history. Does seem to maybe have some slight bronzing look to his skin. Pupils equal round reactive, conjugate gaze. Symmetrical facial function, speaking in complete sentences. Neck thicker, no adenopathy, do not appreciate any jugular venous distension. Lungs are clear, good air entry, no wheezing or crackles, no tachypnea. CV regular rate and rhythm, no murmur, normal S1-S2, no S3-S4. Abdomen is obese but soft, do not feel fluid wave, no organomegaly, not distended, completely nontender when I palpate. Patient has socks on, no significant pretibial edema. Right knee has some warmth about it, some generalized tenderness, no significant erythema at this time no definite joint effusion. He is generally painful when I palpate anywhere around the knee joint. He has jennifer hematuria in his leg bag. With outstretched arms, is tremulous, maybe right greater than left but not true asterixis. Documenting provider has reviewed patient's vital signs: yes Course Course ED Course: Will attempt to collect urinalysis, have him on pulse oximetry, place an IV and get full complement of labs including liver labs. Will have EKG obtained. He has a complex medical history, has jennifer hematuria, increased weakness, some mild potential alteration in his mentation. This could be infectious, could be complications of his liver cirrhosis with hepatic encephalopathy, urinary tract infection, doubt spontaneous bacterial peritonitis given his stability but will see where his labs 0.2. Will get a portable chest x-ray with their report of mild coughing, also rule out viral etiologies with the triple viral swab. Reevaluation(s) Time of Reevaluation #1: 12:15 Reevaluation #1: Reviewed with patient and his the plan for admission. His hemoglobin was reviewed at 12.3, kidney function is up with a creatinine of 1.7 and BUN up, overall I think he is intravascularly dry but still may have increased tissue edema. I think he needs to be observed closely if given IV fluids and would recommend IV fluids, he also needs lactulose. I do not think he is stable to discharge to do home lactulose. I have talked to the hospitalist and they are in agreement. Will wait initiate lactulose when he gets to the floor per the hospitalist. Did order maintenance IV fluids at low dose of 75mls/hr. Consultations Consultation #1: Spoke with hospitalist Dr. Brewer, she accepts this patient. Time: 12:10 Vital Signs Vital signs: Initial Vital Signs Pulse Oximetry 98 08/27/24 09:47 Vital Signs Pulse Oximetry 98 08/27/24 09:47 Temperature 97.9 F 08/27/24 11:16 Pulse Rate 87 08/27/24 11:49 Respiratory Rate 18 08/27/24 11:16 Blood Pressure 153/72 H 08/27/24 11:49 Pulse Oximetry 98 08/27/24 11:49 Oxygen Delivery Method Room Air 08/27/24 11:16 Medical Decision Making Lab Data Lab results reviewed: Yes I reviewed the patient's lab results Labs: Lab Results 08/27/24 08/27/24 08/27/24 Range/Units 10:10 10:45 11:25 WBC 7.22 (4.50-11.00) K/uL RBC 4.43 (4.30-5.90) m/uL Hgb 12.3 L (13.5-17.5) gm/dL Hct 38.8 (37.0-53.0) % MCV 88 (80-100) fL MCH 28 (26-34) pg MCHC 32 (32-36) gm/dL Plt Count 133 L (140-440) K/uL Neut % (Auto) 73.9 H (42.0-72.0) % Lymph % (Auto) 11.4 L (20-44) % Ballard % (Auto) 10.2 (0.0-11.0) % Eos % (Auto) 3.0 (0.0-7.0) % Baso % (Auto) 0.7 (0.0-3.0) % Neut # (Auto) 5.33 (1.7-7.0) K/uL Lymph # (Auto) 0.82 L (0.90-2.90) K/uL Ballard # (Auto) 0.74 (0.00-0.90) K/UL Eos # (Auto) 0.22 (0.00-0.50) K/uL Baso # (Auto) 0.05 (0.00-0.30) K/uL Abs Immat Gran (auto) 0.06 (0.00-0.30) K/uL Imm/Tot Granulo (auto) 0.8 % INR 1.45 H (0.91-1.10) APTT 33 (23-33) Seconds Sodium 140 (135-149) mmol/L Potassium 4.8 (3.6-5.1) mmol/L Chloride 109 (96-114) mmol/L Carbon Dioxide 19 L (20-32) mmol/L Anion Gap 12 (7-15) mEq/L BUN 45 H (7-30) mg/dL Creatinine 1.7 H (0.5-1.5) mg/dL Estimated Creat Clear 46.28 Estimated GFR 44 ml/min Glucose 120 H (60-115) mg/dL Lactate 1.7 (0.5-1.9) mmol/L Calcium 9.5 (8.4-10.6) mg/dL Total Bilirubin 0.9 (0.1-1.5) mg/dL Direct Bilirubin 0.6 H (0.0-0.5) mg/dL AST 29 (12-35) U/L ALT 20 (4-50) U/L Alkaline Phosphatase 107 (40-150) U/L Ammonia 89.9 H (13.1-30.0) umol/L Troponin I < 0.01 L (0.01-0.04) ng/mL Total Protein 8.1 (6.0-8.3) g/dL Albumin 4.0 (3.3-5.0) g/dL SARS-CoV-2 (PCR) Negative SARS-CoV-2 (Negative) Influenza Type A (PCR) Negative PCR FLU A (Negative) Influenza Type B (PCR) Negative PCR FLU B (Negative) RSV (PCR) Negative PCR RSV (Negative) Lab Acknowledgement Test Added Imaging Data Chest x-ray: Attestation: I have reviewed the pertinent imaging results. My impression: Question increased markings but no evidence of any infiltrate, did compared to prior two-view chest x-ray but that potentially had more penetration. Await Radiology over-read. Radiologist's impression: Patient: CAMPBELL CEJA Facility:?[facility] Patient ID:?[id number] Site Patient ID:?[id number]. Site :?[id number] Study:?XRay-Chest Portable 1V-08/27/2024 11:01:15 AM Ordering Physician:Susie Villalobos Final Report: Indication: Cough and weakness Comparison: None available. Technique: Single AP view chest Findings: There is hyperinflation and chronic interstitial change. There is mild pulmonary vascular congestion with minimal basilar atelectasis. There is no pneumothorax or pleural effusion. The cardiomediastinal silhouette is within normal limits. The bony thorax is grossly intact. Impression: Mildly increased interstitial markings which may represent pulmonary vascular congestion and/or bronchial thickening. No definite dense consolidation. Dictated by Gm Noland MD @ 08/27/2024 11:12:04 AM (Electronic Signature) ECG Data Attestation: I personally reviewed and interpreted this ECG as follows: (Normal sinus rhythm, 85 beats per minute. Nonspecific ST changes not diagnostic of ischemia. ) Prior ECG tracings: available for review (Compared to EKG from 02/28/2024, no significant change.) Discharge Plan Discharge Clinical Impression: Acute hepatic encephalopathy Patient Disposition: Admitted As Observation
--- NOTE | 2024-08-27 10:23 | CRLHL7_ITS ---
For Patients: As a result of the Century Cures Act, medical imaging exams and procedure reports are released immediately into your electronic medical record. You may view this report before your referring provider. If you have questions, please contact your health care provider. Indication: Cough and weakness Comparison: None available. Technique: Single AP view chest Findings: There is hyperinflation and chronic interstitial change. There is mild pulmonary vascular congestion with minimal basilar atelectasis. There is no pneumothorax or pleural effusion. The cardiomediastinal silhouette is within normal limits. The bony thorax is grossly intact. Impression: Mildly increased interstitial markings which may represent pulmonary vascular congestion and/or bronchial thickening. No definite dense consolidation. Dictated by Gm Noland MD @ 08/27/2024 11:12:04 AM (Electronically Signed)
[2024-08-27 10:52] LABS: PCR FLU A Negative PCR FLU A (Negative); PCR FLU B Negative PCR FLU B (Negative); PCR RSV Negative PCR RSV (Negative); SARS PCR* Negative SARS-CoV-2 (Negative)
[2024-08-27 10:54] LABS: Lactate* 1.7 mmol/L (0.5-1.9)
[2024-08-27 11:21] LABS: Hematocrit 38.8 % (37.0-53.0); Hemoglobin* 12.3 gm/dL (13.5-17.5); Mean Corpuscular HGB Conc 32 gm/dL (32-36); Mean Corpuscular Hemoglobin 28 pg (26-34); Mean Corpuscular Volume 88 fL (80-100); Red Blood Count 4.43 m/uL (4.30-5.90); White Blood Count* 7.22 K/uL (4.50-11.00)
[2024-08-27 11:22] LABS: Basophils Absolute Auto 0.05 K/uL (0.00-0.30); Basophils Percent Auto 0.7 % (0.0-3.0); Eosinophils Absolute Auto 0.22 K/uL (0.00-0.50); Immature Granulocytes Abs Auto 0.06 K/uL (0.00-0.30); Immature Granulocytes Pct Auto 0.8 %; Lymphocytes Absolute Auto 0.82 K/uL (0.90-2.90); Lymphocytes Percent Auto 11.4 % (20-44); Monocytes Absolute Auto 0.74 K/UL (0.00-0.90); Monocytes Percent Auto 10.2 % (0.0-11.0); Neutrophils Absolute Auto 5.33 K/uL (1.7-7.0); Neutrophils Percent Auto 73.9 % (42.0-72.0); Platelet Count* 133 K/uL (140-440); Slide Review Reflex No
[2024-08-27 11:35] LABS: Chloride* 109 mmol/L (96-114); Potassium* 4.8 mmol/L (3.6-5.1); Sodium* 140 mmol/L (135-149)
[2024-08-27 11:38] LABS: Alanine Aminotransferase* 20 U/L (4-50); Alkaline Phosphatase* 107 U/L (40-150); Ammonia* 89.9 umol/L (13.1-30.0); Anion Gap 12 mEq/L (7-15); Aspartate Amino Transferase* 29 U/L (12-35); Bilirubin Direct* 0.6 mg/dL (0.0-0.5); Bilirubin Total* 0.9 mg/dL (0.1-1.5); Blood Urea Nitrogen* 45 mg/dL (7-30); Carbon Dioxide* 19 mmol/L (20-32); Creatinine* 1.7 mg/dL (0.5-1.5); Est. Creatinine Clearance* 46.28; Estimated Glomerular Filt Rate 44 ml/min; Total Protein* 8.1 g/dL (6.0-8.3)
[2024-08-27 11:39] LABS: Calcium* 9.5 mg/dL (8.4-10.6); Glucose* 120 mg/dL (60-115)
[2024-08-27 11:52] LABS: Troponin I* < 0.01 ng/mL (0.01-0.04)
[2024-08-27 12:07] LABS: INR 1.45 (0.91-1.10); Prothrombin Time 18.6 Seconds
[2024-08-27 12:08] LABS: Partial Thromboplastin Time* 33 Seconds (23-33)
[2024-08-27 13:29] LABS: Appearance Urine Turbid (Clear); Bilirubin Urine 3+ (Negative); Blood Urine 3+ (Negative); Color Urine Red (Yellow); Glucose Urine Trace (Negative); Ketones Urine 3+ (Negative); Leukocyte Esterase Urine 3+ (Negative); Nitrite Urine Positive (Negative); Protein Urine 3+ (Negative); Specific Gravity Urine <= 1.005 (1.000-1.030); Urobilinogen Urine >=8.0 (0.2-1.0); pH Urine 8.5 (5.0-8.5)
[2024-08-27 13:58] LABS: Bacteria Urine Few; RBC Urine >100 (0-2); WBC Urine >100 (0-5)
--- NOTE | 2024-08-27 14:06 | PM.IMHP1 ---
Hospitalist- H&P: HPI History of Present Illness Time Seen by Provider: 13:30 Date Seen: 08/27/24 Chief complaint: sent by Mary Ruggiero for tests Narrative: Osvaldo Zuniga is a 69 year old male with multiple chronic medical problems including alcoholic liver cirrhosis with ascites for which he has been on lactulose in the past presented through the emergency department with concerns of altered mental status. His , Rosibel, is here with him today to help give history. She tells me that he drove himself up to his appointment for hyperbaric oxygen for his prostate and bladder on Monday and he when he got back he was okay, but later that evening he seemed to be somewhat confused. Over the weekend the confusion and lethargy got worse, but he refused to come to the emergency department. He was shaking in addition to being lethargic and confused this morning and finally agreed to come in, according to his . He tells me that he stop taking lactulose about 4 weeks ago were more because he was told he did not need it and it was causing him to much urgency with liquidy stools. He has trouble getting to the bathroom on time when he is taking it. He was having 3 or 4 stools a day and says that the doctor he talked with about it told him that he did needed if he was having that many stools in a day. He has had this happen before, most recently in February of this past year and had the same symptoms at that time. He was at [facility] for a while for acute hepatic encephalopathy with an elevated ammonia level with these symptoms in February. Review of Systems Status of ROS: Reports: 10 or more systems reviewed and unremarkable except as noted in History and below [facility] Medical History (Updated 08/27/24 @ 16:14 by Quyen Mckinney MD) Urinary retention ?R33.9 - Retention of urine, unspecified (ICD-10) GI bleed ?K92.2 - Gastrointestinal hemorrhage, unspecified (ICD-10) Alcoholic cirrhosis of liver with ascites ?K70.31 - Alcoholic cirrhosis of liver with ascites (ICD-10) Heart failure with preserved ejection fraction ?I50.30 - Unspecified diastolic (congestive) heart failure (ICD-10) Alcohol use disorder ?F10.90 - Alcohol use, unspecified, uncomplicated (ICD-10) 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 (ICD-10) Chronic insomnia ?F51.04 - Psychophysiologic insomnia (ICD-10) Thrombocytopenia ?D69.6 - Thrombocytopenia, unspecified (ICD-10) Vitamin D deficiency ?E55.9 - Vitamin D deficiency, unspecified (ICD-10) Morbid obesity with BMI of 40.0-44.9, adult ?E66.01 - Morbid (severe) obesity due to excess calories (ICD-10) ?Z68.41 - Body mass index [BMI] 40.0-44.9, adult (ICD-10) Infected prosthetic knee joint ?T84.59XA - Infection and inflammatory reaction due to other internal joint prosthesis, initial encounter (ICD-10) ?Z96.659 - Presence of unspecified artificial knee joint (ICD-10) Restless leg syndrome ?G25.81 - Restless legs syndrome (ICD-10) Diastasis of rectus abdominis ?M62.08 - Separation of muscle (nontraumatic), other site (ICD-10) Incarcerated ventral hernia ?K43.6 - Other and unspecified ventral hernia with obstruction, without gangrene (ICD-10) Chronic venous insufficiency ?I87.2 - Venous insufficiency (chronic) (peripheral) (ICD-10) Obstructive sleep apnea ?G47.33 - Obstructive sleep apnea (adult) (pediatric) (ICD-10) Hypertension ?I10 - Essential (primary) hypertension (ICD-10) Depression with anxiety ?F41.8 - Other specified anxiety disorders (ICD-10) Prostate cancer ?C61 - Malignant neoplasm of prostate (ICD-10) Surgical History Hx of colonoscopy ?Z98.890 - Other specified postprocedural states (ICD-10) Status post total right knee replacement ?Z96.651 - Presence of right artificial knee joint (ICD-10) Social History (Updated 08/27/24 @ 16:01 by uQyen Mckinney MD) Narrative: , Rosibel was here with him today. Denies alcohol use having quit 2 years ago. Denies tobacco and recreational drug use. What is your current living situation?: I presently have a place to live Problems where you live: no known problems Problems where you live details: N/A In the past 12 months, utilities in danger of being shut off: no In the past 12 mos, have been you worried that your food would run out before you had money to buy more?: never true In the past 12 mos, the food you bought just didn't last and you didn't have money to buy more?: never true Smoking Status: Never smoker Do you use any of these nicotine containing products: None How often do you have a drink containing alcohol: never How often do you have six or more drinks on one occasion: Never AUDIT-C Alcohol total score: 0 Non-prescribed substance use: denies use Caffeine: Yes How often does anyone, including family, friends and others, physically hurt you: never How often does anyone, including family, friends and others, insult or talk down to you: never How often does anyone, including family, friends and others, threaten you with harm: never How often does anyone, including family, friends and others, scream or curse at you: never service: No Meds Home Medications and Allergies Home Medications ?Medication ?Instructions ?Recorded ?Confirmed ?Type atorvastatin 10 mg tablet 10 mg PO DAILY 02/12/24 08/27/24 History duloxetine 60 mg capsule,delayed 120 mg PO DAILY 02/12/24 08/27/24 History release ferrous sulfate 325 mg (65 mg 325 mg PO DAILY 02/12/24 08/27/24 History iron) tablet (FeroSul) oxycodone 10 mg tablet 10 mg PO TID PRN 02/12/24 08/27/24 History acetaminophen 325 mg tablet 650 mg PO Q6H PRN 08/27/24 08/27/24 History calcium 500 mg (as 1 tab PO DAILY 08/27/24 08/27/24 History carbonate)-vitamin D3 10 mcg (400 unit) tablet (Calcium 500 + D) mirabegron 50 mg tablet,extended 50 mg PO DAILY 08/27/24 08/27/24 History release 24 hr pantoprazole 40 mg tablet,delayed 40 mg PO BID 08/27/24 08/27/24 History release pregabalin 25 mg capsule 25 mg PO BID 08/27/24 08/27/24 History rifaximin 550 mg tablet (Xifaxan) 550 mg PO BID 08/27/24 08/27/24 History vitamin E 670 mg (1,000 unit) 670 mg PO DAILY 08/27/24 08/27/24 History capsule Allergies Allergy/AdvReac Type Severity Reaction Status Date / Time metformin AdvReac Intermediate Diarrhea Verified 02/28/24 15:16 Exam Narrative: Exam Narrative: General: No acute distress. Mildly lethargic, but able to answer questions, oriented x3. Asterixis is present. HEENT: Normocephalic atraumatic, pupils equally round and reactive to light and accommodation. Oropharynx clear. Mucous membranes are moist. No cervical lymphadenopathy, thyromegaly or carotid bruits. No JVD. Cardiovascular: Regular rate and rhythm. No murmurs, gallops, or rubs. Chest: No increased work of breathing. Clear to auscultation bilaterally. No crackles or wheezes. Abdomen: Bowel sounds present. Soft, protuberant, nontender. Extremities: No edema, no cyanosis or clubbing. Skin: No jaundice, no pallor, multiple scabs over arms and legs and head, patient picking until it bleeds while I was in the room with him. Neuro: Other than above, grossly intact with no focal deficits. Const: Vital Signs, click to edit/add: Vital Signs - 24 hr 08/27/24 09:47 08/27/24 09:55 08/27/24 11:16 Temperature 97.4 F L 97.9 F Pulse Rate Pulse Rate [Left P ulse Oximeter] Pulse Rate [Pulse Oximeter] 87 81 Respiratory Rate 20 18 Blood Pressure Blood Pressure [Le ft Arm] Blood Pressure [Ri ght Upper Arm] 146/72 H 142/72 H Pulse Oximetry 98 98 98 Oxygen Delivery Me thod Room Air Room Air 08/27/24 11:16 08/27/24 11:47 08/27/24 11:49 Temperature Pulse Rate 87 87 Pulse Rate [Left P ulse Oximeter] Pulse Rate [Pulse Oximeter] Respiratory Rate Blood Pressure 142/72 H 153/72 H Blood Pressure [Le ft Arm] Blood Pressure [Ri ght Upper Arm] Pulse Oximetry 97 98 Oxygen Delivery Me thod 08/27/24 12:49 Temperature 97.7 F Pulse Rate Pulse Rate [Left P ulse Oximeter] 80 Pulse Rate [Pulse Oximeter] Respiratory Rate 16 Blood Pressure Blood Pressure [Le ft Arm] 154/73 H Blood Pressure [Ri ght Upper Arm] Pulse Oximetry 100 Oxygen Delivery Me thod Room Air Hospitalist - H&P: Result Labs Labs: Short CBC 08/27/24 Range/Units 10:45 WBC 7.22 (4.50-11.00) K/uL Hgb 12.3 L (13.5-17.5) gm/dL Hct 38.8 (37.0-53.0) % Plt Count 133 L (140-440) K/uL BMP 08/27/24 10:45 Sodium 140 Potassium 4.8 Chloride 109 Carbon Dioxide 19 L BUN 45 H Creatinine 1.7 H Glucose 120 H Calcium 9.5 Cardiac Enzymes 08/27/24 Range/Units 10:45 Troponin I < 0.01 L (0.01-0.04) ng/mL Liver Function 08/27/24 Range/Units 10:45 Total Bilirubin 0.9 (0.1-1.5) mg/dL Direct Bilirubin 0.6 H (0.0-0.5) mg/dL AST 29 (12-35) U/L ALT 20 (4-50) U/L Alkaline Phosphatase 107 (40-150) U/L Albumin 4.0 (3.3-5.0) g/dL Urine 08/27/24 Range/Units 12:13 Urine Color Red A (Yellow) Urine Appearance Turbid A (Clear) Urine pH 8.5 (5.0-8.5) Ur Specific [place] <= 1.005 (1.000-1.030) Urine Protein 3+ A (Negative) Urine Glucose (UA) Trace A (Negative) 08/27/2024 EKG: Normal sinus rhythm, 85 beats per minute, nonspecific ST abnormality. Ordering Physician: Griselda Tai M.D. Date of Service: 08/27/24 Procedure(s): XR chest 1V portable Accession Number(s): [id number] cc: Mary Ruggiero PA-C; Griselda Tai M.D.~ For Patients: As a result of the 21st Century Cures Act, medical imaging exams and procedure reports are released immediately into your electronic medical record. You may view this report before your referring provider. If you have questions, please contact your health care provider. Indication: Cough and weakness Comparison: None available. Technique: Single AP view chest Findings: There is hyperinflation and chronic interstitial change. There is mild pulmonary vascular congestion with minimal basilar atelectasis. There is no pneumothorax or pleural effusion. The cardiomediastinal silhouette is within normal limits. The bony thorax is grossly intact. Impression: Mildly increased interstitial markings which may represent pulmonary vascular congestion and/or bronchial thickening. No definite dense consolidation. Dictated by Gm Noland MD @ 08/27/2024 11:12:04 AM (Electronically Signed) Assessment and Plan Assessment and plan (1) Acute hepatic encephalopathy: Problem comment: - asterixis and lethargy in the setting of an ammonia level that is 83. - restart lactulose - continue rifaximin Status: Acute (2) Alcoholic cirrhosis of liver with ascites: Problem comment: - sees GI at [facility] Status: Chronic (3) Acute renal failure: Problem comment: - baseline Cr about 1.2. Cr is 1.7 today. BUN elevated, clinically hypovolemic. - small IVF bolus - recheck in the morning Status: Acute (4) Hypertension: Problem comment: - continue his usual home medications Status: Chronic (5) Obstructive sleep apnea: Status: Chronic (6) Morbid obesity with BMI of 40.0-44.9, adult: Status: Chronic (7) Heart failure with preserved ejection fraction: Problem comment: - stable, giving small fluid bolus today, monitor for volume overload Status: Chronic (8) Hematuria: Problem comment: - known problem, follows with urologist Status: Chronic (9) Suprapubic catheter: Problem comment: - routine care Status: Chronic
[2024-08-27] MEDS: LACTULOSE 20 GM/30 ML PO ×2 (14:38→20:41)
[2024-08-27] MEDS: 0.9 % SODIUM CHLORIDE 500 ML 500 ML IV (16:46)
[2024-08-27] MEDS: ACETAMINOPHEN 500 MG TABLET PO (17:37)
[2024-08-27 18:47] LABS: C Reactive Protein* 1.9 mg/dL (0.5-1.0)
[2024-08-27 19:05] LABS: NT Pro B Type NatriureticPept* 75 pg/mL
[2024-08-27] MEDS: PREGABALIN 25 MG CAPSULE PO (20:40)
[2024-08-27] MEDS: OMEPRAZOLE 20 MG CAPSULE DR 40 MG PO (20:40)
[2024-08-27] MEDS: SODIUM CHLORIDE 0.9 % (FLUSH) 10 ML SYRINGE 5 ML IVF (20:41)
--- NOTE | 2024-08-27 22:51 | PC.NURSE ---
End of Shift: Patient pleasant and cooperative. Afebrile. Rating pain 4/10 and patient requested Tylenol, updated MD and order for Tylenol obtained. Up to bathroom and chair with SBA and cane. SP cath patent with bloody output. Tolerating regular diet with no nausea.
[2024-08-28 00:26] VITALS: BP 144/67; PULSE 84; RESP 16; TEMP 36.3; O2SAT 98
[2024-08-28 03:07] VITALS: BP 140/69; PULSE 89; RESP 16; TEMP 36.4; O2SAT 98
[2024-08-28 07:00] VITALS: BP 137/71; PULSE 85; RESP 16; TEMP 36.8; O2SAT 99
[2024-08-28 07:13] LABS: Basophils Absolute Auto 0.06 K/uL (0.00-0.30); Eosinophils Absolute Auto 0.24 K/uL (0.00-0.50); Eosinophils Percent Auto 4.1 % (0.0-7.0); Hemoglobin* 11.6 gm/dL (13.5-17.5); Immature Granulocytes Abs Auto 0.04 K/uL (0.00-0.30); Immature Granulocytes Pct Auto 0.7 %; Lymphocytes Percent Auto 9.4 % (20-44); Mean Corpuscular HGB Conc 31 gm/dL (32-36); Mean Corpuscular Hemoglobin 28 pg (26-34); Mean Corpuscular Volume 88 fL (80-100); Monocytes Percent Auto 10.4 % (0.0-11.0); Neutrophils Percent Auto 74.4 % (42.0-72.0); Platelet Count* 127 K/uL (140-440); RDW Coefficient of Variation % 17.4 % (11.5-15.5); Red Blood Count 4.21 m/uL (4.30-5.90); White Blood Count* 5.87 K/uL (4.50-11.00)
[2024-08-28 07:15] LABS: Slide Review Reflex No
[2024-08-28 07:18] LABS: Chloride* 111 mmol/L (96-114); Potassium* 4.4 mmol/L (3.6-5.1); Sodium* 139 mmol/L (135-149)
[2024-08-28 07:20] LABS: Creatinine* 1.2 mg/dL (0.5-1.5); Est. Creatinine Clearance* 65.56; Estimated Glomerular Filt Rate 66 ml/min
[2024-08-28 07:21] LABS: Anion Gap 11 mEq/L (7-15); Blood Urea Nitrogen* 32 mg/dL (7-30); Calcium* 9.9 mg/dL (8.4-10.6); Carbon Dioxide* 17 mmol/L (20-32); Glucose* 122 mg/dL (60-115)
[2024-08-28] MEDS: DULOXETINE 30 MG CAPSULE DR 120 MG PO (09:13)
[2024-08-28] MEDS: FUROSEMIDE 40 MG TABLET PO (09:13)
[2024-08-28] MEDS: FERROUS SULFATE 325 MG TABLET PO (09:13)
[2024-08-28] MEDS: LACTULOSE 20 GM/30 ML PO (09:13)
[2024-08-28] MEDS: SODIUM CHLORIDE 0.9 % (FLUSH) 10 ML SYRINGE 5 ML IVF (09:14)
[2024-08-28] MEDS: OMEPRAZOLE 20 MG CAPSULE DR 40 MG PO (09:14)
[2024-08-28] MEDS: PREGABALIN 25 MG CAPSULE PO (09:34)
--- NOTE | 2024-08-28 09:40 | NUTR.NU ---
RDN with diet education related to heart healthy diet. Patient admitted for acute hepatic encephalopathy. Past medical history includes but not limited to depression with anxiety, heart failure, alcohol use disorder, alcoholic liver cirrhosis with ascites, and obesity. Current weight 258lb 1.6oz; height 6ft; BMI 35.0 kg/m2. Patient reports he has intentionally lost about 50 lbs within the past 6 months. Weight loss of 50 lbs within 6 months is significant weight loss at 19%, however this weight loss is intentional. Patient reports his appetite is normal and oral intakes are good. Current diet order is Heart Healthy. Meal intake since admit was 75% which is adequate. RDN offered diet education related to heart healthy diet. Patient declined at this time. No nutrition interventions at this time due to adequate oral intakes and good appetite. Do not suspect patient is at nutrition risk. RDN will continue to monitor and follow-up prn.
[2024-08-28 11:00] VITALS: BP 137/73; PULSE 93; RESP 18; TEMP 36.6; O2SAT 99
--- NOTE | 2024-08-28 14:28 | PC.NURSE ---
Pt discharged @ 1427 via wheelchair, back to home. Accompanied by . Pt AxOx4. IV removed. Discharge papers signed.
--- NOTE | 2024-08-28 16:23 | P.DS_ITS ---
DS: Providers Provider Date Seen: 08/28/24 Date of admission: 08/27/24 16:02 Primary care physician: Mary Ruggiero PA-C Admitting Clinician: Quyen Mckinney MD Attending Physician on discharge: Jak Orourke MD Date of Discharge: 08/28/24 DS: Diagnosis Discharge Diagnosis (1) Acute hepatic encephalopathy: Status: Acute Problem details: - asterixis and lethargy in the setting of an ammonia level that is 83. - restarted lactulose - continued rifaximin - encephalopathy normalized before discharge (2) Alcoholic cirrhosis of liver with ascites: Status: Chronic Problem details: - sees GI at [facility] (3) Suspected urinary tract infection: Status: Acute Problem details: - greater than 100,000 colony-forming units per mL of a Gram-negative donta. Placed him empirically on cephalexin 500 mg p.o. t.i.d. for 5 days while awaiting results of urine culture. Explained to patient and his that we may need to change this antibiotic or increase the duration of treatment once we obtain the results of the culture. (4) Acute renal failure: Status: Acute Problem details: - baseline Cr about 1.2. Cr is 1.7 today. BUN elevated, clinically hypovolemic. - small IVF bolus - serum creatinine back to 1.2 (5) Suprapubic catheter: Status: Chronic Problem details: - routine care (6) Hematuria: Status: Chronic Problem details: - known problem, follows with urologist (7) Heart failure with preserved ejection fraction: Status: Chronic Problem details: - stable, giving small fluid bolus today, monitor for volume overload (8) Morbid obesity with BMI of 40.0-44.9, adult: Status: Chronic (9) Obstructive sleep apnea: Status: Chronic (10) Hypertension: Status: Chronic Problem details: - continue his usual home medications DS: Summary Hospital Course Hospital Course: Presented encephalopathic. Responded to IV fluids and re-initiation of lactulose. Status at Discharge Overall status at discharge: patient is progressing back to baseline Time Spent with Patient Time attestation: Total time spent providing and/or coordinating discharge services: Time spent: Greater than 30 minutes Exam Narrative: Exam Narrative: Examine him in his hospital room. Appears comfortable in no acute distress. Alert and oriented x3. Friendly, articulate, cooperative. Lungs clear to auscultation. Heart tones with regular rhythm. Abdomen obese with active bowel sounds, soft, nontender. Suprapubic catheter in place. Independent transfer, station, and gait. Const: Vital Signs, click to edit/add: Vital Signs - 24 hr 08/27/24 19:00 08/28/24 00:26 08/28/24 03:07 Temperature 97.6 F 97.4 F L 97.6 F Pulse Rate [Left P ulse Oximeter] 84 84 89 Respiratory Rate 18 16 16 Blood Pressure [Le ft Arm] Blood Pressure [Ri ght Arm] 126/75 144/67 H 140/69 H Pulse Oximetry 99 98 98 Oxygen Delivery Me thod Room Air Room Air Room Air 08/28/24 07:00 08/28/24 11:00 Temperature 98.3 F 97.9 F Pulse Rate [Left P ulse Oximeter] 85 93 Respiratory Rate 16 18 Blood Pressure [Le ft Arm] 137/73 Blood Pressure [Ri ght Arm] 137/71 Pulse Oximetry 99 99 Oxygen Delivery Me thod Room Air Room Air DS: Data Data Completed and Pending Labs on day of discharge: Labs from last 24 hours 08/28/24 08/27/24 06:09 10:45 WBC 5.87 RBC 4.21 L Hgb 11.6 L Hct 37.0 MCV 88 MCH 28 MCHC 31 L RDW Coeff of Renee 17.4 H Plt Count 127 L Neut % (Auto) 74.4 H Lymph % (Auto) 9.4 L [place] % (Auto) 10.4 Eos % (Auto) 4.1 Baso % (Auto) 1.0 Neut # (Auto) 4.40 Lymph # (Auto) 0.60 L [place] # (Auto) 0.60 Eos # (Auto) 0.24 Baso # (Auto) 0.06 Abs Immat Gran (auto) 0.04 Imm/Tot Granulo (auto) 0.7 Sodium 139 Potassium 4.4 Chloride 111 Carbon Dioxide 17 L Anion Gap 11 BUN 32 H Creatinine 1.2 Estimated Creat Clear 65.56 Estimated GFR 66 Glucose 122 H Calcium 9.9 C-Reactive Protein 1.9 H NT-Pro-B Natriuret Pep 75 Procalcitonin 0.10 Preliminary micro results at discharge 08/27/24 12:13 Urine Culture - Preliminary Urine,Clean Catch Gram negative donta Imaging Chest x-ray: Attestation: I have reviewed the pertinent imaging results. Radiologist's impression: Mildly increased interstitial markings which may represent pulmonary vascular congestion and/or bronchial thickening. No definite dense consolidation. Discharge Plan Discharge Disposition: Home, Self-Care Date of Admission: 08/27/24 16:02 Attending Provider on Discharge: Jak Orourke Primary Care Provider: Mary Ruggiero Condition: Improved Anticipated Discharge Date/Time: 08/28/24 14:00 Discharge Medications: New lactulose 20 gram/30 mL Solution 20 g PO BID 30 Days Qty: 1800 1RF cephalexin 500 mg capsule 500 mg PO TID Qty: 14 0RF Continued atorvastatin 10 mg tablet 10 mg PO DAILY ferrous sulfate [FeroSul] 325 mg (65 mg iron) tablet 325 mg PO DAILY duloxetine 60 mg capsule,delayed release(DR/EC) 120 mg PO DAILY oxycodone 10 mg tablet 10 mg PO TID PRN furosemide 40 mg tablet 40 mg PO DAILY Qty: 7 2RF pregabalin 25 mg capsule 25 mg PO BID Xifaxan 550 mg tablet 550 mg PO BID pantoprazole 40 mg tablet,delayed release (DR/EC) 40 mg PO BID mirabegron 50 mg tablet extended release 24 hr 50 mg PO DAILY vitamin E 670 mg (1,000 unit) capsule 670 mg PO DAILY acetaminophen 325 mg tablet 650 mg PO Q6H PRN calcium carbonate-vitamin D3 [Calcium 500 + D] 500 mg-10 mcg (400 unit) tablet 1 tab PO DAILY Discharge Orders: Discharge Order (Routine); Ordered 08/28/24 Ordered By: Jak Orourke Patient Education: Cephalexin (By mouth), Lactulose (By mouth), Hepatic Encephalopathy (DC) Activity Level: Activity as Tolerated Discharge Diet: Heart Healthy (2 gm sodium, low fat) Follow Up Appointments: Mary Ruggiero PA-C [Primary Care Provider] - 09/10/24 10:30 am ([facility] for follow-up.) Forms: [employer] Instructions
--- NOTE | 2024-09-03 08:02 | PC.NURSE ---
Received a call from [facility] wondering what antibiotic patient was discharge on. As he is supposed to have a procedure and they need to know about stopping it. States he received a called after discharge that they were changing the antibiotic. But do not see any documentation of this conversation or encounter.
== END 2024-08-28 14:27 | disposition home or self-care (01) | DRG 442 ==
LOC: ED 12:24 → MEDSURG 12:36
PROVIDERS: Admitting Provider Family Medicine; Emergency Provider Family Medicine; PCP Physician Assistant; Visit Provider Family Medicine
DX: K76.82 Hepatic encephalopathy (principal); F10.288 Alcohol dependence with other alcohol-induced disorder; I50.32 Chronic diastolic (congestive) heart failure; Z68.41 Body mass index [BMI] 40.0-44.9, adult; N17.9 Acute kidney failure, unspecified; N39.0 Urinary tract infection, site not specified; K70.31 Alcoholic cirrhosis of liver with ascites; F10.21 Alcohol dependence, in remission; C61 Malignant neoplasm of prostate; R31.9 Hematuria, unspecified; Z87.891 Personal history of nicotine dependence; I11.0 Hypertensive heart disease with heart failure; G47.33 Obstructive sleep apnea (adult) (pediatric); E66.01 Morbid (severe) obesity due to excess calories; Z93.51 Cutaneous-vesicostomy status; B96.89 Other specified bacterial agents as the cause of diseases classified elsewhere; R33.9 Retention of urine, unspecified
CPT/HCPCS: 36415; 71045; 80048; 80053; 81001; 82140; 82248; 83605; 83880; 84145; 84484; 85025; 85610; 85730; 86140; 87086; 87186; 87631; 93005; 94761; 99284; 99285; A9270; G0378; J7030

== ENCOUNTER 2024-09-03 11:00 | Outpatient (RCR) | payer MEDICARE, BC, SELFPAY ==
[2024-08-30 17:40] VITALS: BP 116/63; PULSE 65; RESP 18; O2SAT 97
--- NOTE | 2024-08-30 18:38 | PC.NURSE ---
The patient presented for IV abx infusion, IV was placed in R forearm... educated on how to cover it in order to shower. VSS on RA, no reports of pain. Elastic covering was provided over his IV. Mariel VAIL BSN
[2024-08-31 11:30] VITALS: BP 143/80; PULSE 84; RESP 20; O2SAT 100
[2024-09-01 11:00] VITALS: BP 148/74; PULSE 94; RESP 18; O2SAT 99
[2024-09-02 12:54] VITALS: BP 158/81; PULSE 83; RESP 16; TEMP 36.6; O2SAT 99
[2024-09-03 10:59] VITALS: BP 152/74; PULSE 80; RESP 16; TEMP 36.7; O2SAT 99
== END 2025-02-26 23:59 | disposition home or self-care (01) ==
LOC: CCIC 11:00
PROVIDERS: PCP Physician Assistant; Referring Provider Physician Assistant; Visit Provider Family Medicine
DX: N39.0 Urinary tract infection, site not specified (principal)
CPT/HCPCS: 96365; G0463; J0696

== ENCOUNTER 2025-04-08 13:52 | Emergency (ER) | payer MEDICARE, BC, SELFPAY ==
--- OUTSIDE RECORDS SUMMARY | 2025-03-07 | XMS_ITS | Encounter Summary ---
Author Organization [facility] Address [address] [place] [address] Care Team Providers Care Personal Care Worker Name Role Phone Elsewhere, Pcp Primary Care Provider Unavailabl e Encounter Details Date Type Department Care Team (Late st Contact Info) Description 03/07/2025 Ancillary Procedure Department of Ophthalmology Social History Tobacco Use Types Packs/Day Years Used Date Smoking Tobacco: Former Cigarettes Q uit: 05/19/2006 Passive Smoke Exposure: Never Smokeless Tobacco: Never Alcohol Use Standard Drinks/Week Comments Not Currently 3 (1 standard drink = 0.6 oz pur e alcohol) hasn't for months [facility] Utilities Answer Date Recorded In the past 12 months has e electric, gas, oil, or water company threatened to shut off services in your home? No 01/20/2025 Humiliation, Afraid, Rape, and Kick questionnair e [...] by your partner or ex-partner? No 07/18/2022 Hunger Vital Sign Answer Date Recorded Within the past 12 months, y ou worried that your food would run out before you got the money to buy more. Never true 01/21/20 25 Within the past 12 months, t he food you bought just didn't last and you didn't have money to get more. Never true 01/20/2025 PRAPARE - Transportation Answer Date Re corded In the past 12 months, has l ack of transportation kept you from medical appointments or from getting medications? No 01/2025 In the past 12 months, has l ack of transportation kept you from meetings, work, or from getting things needed for daily living? No 01/20/2025 Housing Stability Answer Date Recorded What is your living situation today? I have a blas place to live 01/20/2025 Education Answer Date Recorded What is the highest level of school you have completed or the highest degree you have received? 12th grade 07/18/2022 Sex and Gender Information Value Date Recorded Sex Assigned at Male 12/18/2017 8:54 AM CDT Legal Sex Male 4:26 AM [employer] Gender Identity Male 12/18/2017 8:54 AM CDT Sexual Orientation Straight 12/18/2017 8: 54 AM CDT documented as of this encounter Plan of Treatment Upcoming Encounters Date Type Department Care Team (Late st Contact Info) Description 04/10/2025 12:30 PM CDT Ancillary Procedure Department of Ophthalmology in [place], [place] [address] [place] [phone] Martell Ramirez M.D. [address] [place] [phone] 04/10/2025 1:00 PM CDT Office Visit Department of Ophthalmology in [place], [place] [address] [place] [phone] Martell Ramirez M.D. [address] [place] [phone] 05/15/2025 1:00 PM CDT Ancillary Procedure Department of Ophthalmology in [place], [place] [address] [place] [phone] Martell Ramirez M.D. [address] [place] [phone] 05/15/2025 1:30 PM CDT Ancillary Procedure Department of Ophthalmology in [place], [place] [address] [place] [phone] Martell Ramirez M.D. [address] [place] [phone] 05/15/2025 2:15 PM CDT Ancillary Procedure Department of Ophthalmology in [place], [place] [address] [place] [phone] Martell Ramirez M.D. [address] [place] [phone] 05/15/2025 2:45 PM CDT Office Visit Department of Ophthalmology in [place], [place] [address] [place] [phone] Martell Ramirez M.D. [address] [place] [phone] documented as of this encounter Procedures Procedure Name Priority Date/Time Associated Diagnosis Comments OPHTHALMOLOGY IMAGE EXAM Routine 03/07/2025 12:00 AM CDT documented in this encounter Results * Eye Pentacam-Ophthalmology Image Exam (03/07/2025 12:00 AM CDT) Narrative [facility] - 03/07/2025 9:12 AM CDT This order has been created and auto-finalized to support the import of images acquired without order. The clinical documentation to support these images can be found on the encounter that produced images. us Provider Not In System IMG NON RAD IMAGING PROCE DURES Final Result [facility] NA documented in this encounter Visit Diagnoses Not on filedocumented in this encounter Additional Health Concerns Assessment Noted Time PHQ-9 Depression Total Score: 3 03/13/20 14 8:24 AM CDT documented as of this encounter Care Teams Personal Care Worker Relationship Specialty Start Date End Date Elsewhere, Pcp PCP - General Internal Medicine 01/17/23 documented as of this encounter
--- OUTSIDE RECORDS SUMMARY | 2025-03-07 00:05 | XMS_ITS | Encounter Summary ---
Author Organization [facility] Address [address] [place] [address] Care Team Providers Care Load Test Mechanic Name Role Phone Elsewhere, Pcp Primary Care Provider Unavailabl e Encounter Details Date Type Department Care Team (Late st Contact Info) Description 03/07/2025 12:05 AM CDT Ancillary Procedure Department of Ophthalmology Social History Tobacco Use Types Packs/Day Years Used Date Smoking Tobacco: Former Cigarettes Q uit: 05/19/2006 Passive Smoke Exposure: Never Smokeless Tobacco: Never Alcohol Use Standard Drinks/Week Comments Not Currently 3 (1 standard drink = 0.6 oz pur e alcohol) hasn't for months [facility] Utilities Answer Date Recorded In the [...] AM CDT 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 [address] [place] [phone] 04/10/2025 1:00 PM CDT Office Visit Department of Ophthalmology in [place], [place] [address] [place] [phone] Martell Ramirez M.D. [address] [place] [phone] 05/15/2025 1:00 PM CDT Ancillary Procedure Department of Ophthalmology in [place], [place] [address] [place] [phone] Martell Ramirez M.D. [address] [place] [phone] 05/15/2025 1:30 PM CDT Ancillary Procedure Department of Ophthalmology in [place], [place] [address] [place] [phone] Martell Ramirez M.D. [address] [place] [phone] 05/15/2025 2:15 PM CDT Ancillary Procedure Department of Ophthalmology in [place], [place] [address] [place] [phone] Martell Ramirez M.D. [address] [place] [phone] 05/15/2025 2:45 PM CDT Office Visit Department of Ophthalmology in [address] [phone] Martell Ramirez M.D. [address] [place] [phone] documented as of this encounter Procedures Procedure Name Priority Date/Time Associated Diagnosis Comments OPHTHALMOLOGY IMAGE EXAM Routine 03/07/2025 12:05 AM CDT documented in this encounter Results * Eyes UBM-Ophthalmology Image Exam (03/07/2025 12:05 AM CDT) Narrative IIMS - 03/07/2025 9:51 AM CDT This order has been created and auto-finalized to support the import of images acquired without order. The clinical documentation to support these images can be found on the encounter that produced images. us Provider Not In System IMG NON RAD IMAGING PROCE DURES Final Result IIMO NA documented in this encounter Visit Diagnoses Not on filedocumented in this encounter Additional Health Concerns Assessment Noted Time PHQ-9 Depression Total Score: 3 03/13/20 14 8:24 AM CDT documented as of this encounter Care Teams Load Test Mechanic Relationship Specialty Start Date End Date Elsewhere, Pcp PCP - General Internal Medicine 01/17/23 documented as of this encounter
--- OUTSIDE RECORDS SUMMARY | 2025-03-07 00:10 | XMS_ITS | Encounter Summary ---
Author Organization [facility] Address [address] [place] [address] Care Team Providers Care Mental Health Program Specialist Name Role Phone Elsewhere, Pcp Primary Care Provider Unavailabl e Encounter Details Date Type Department Care Team (Late st Contact Info) Description 03/07/2025 12:10 AM CDT Ancillary Procedure Department of Ophthalmology Social History Tobacco Use Types Packs/Day Years Used Date Smoking Tobacco: Former Cigarettes Q uit: 05/19/2006 Passive Smoke Exposure: Never Smokeless Tobacco: Never Alcohol Use Standard Drinks/Week Comments Not Currently 3 (1 standard drink = 0.6 oz pur e alcohol) hasn't for months [facility] Utilities Answer Date Recorded In [...] AM CDT 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 [address] [place] [phone] 04/10/2025 1:00 PM CDT Office Visit Department of Ophthalmology in [place], [place] [address] [place] [phone] Martell Ramirez M.D. [address] [place] [phone] 05/15/2025 1:00 PM CDT Ancillary Procedure Department of Ophthalmology in [place], [place] [address] [place] [phone] Martell Ramirez M.D. [address] [place] [phone] 05/15/2025 1:30 PM CDT Ancillary Procedure Department of Ophthalmology in [place], [place] [address] [place] [phone] Martell Ramirez M.D. [address] [place] [phone] 05/15/2025 2:15 PM CDT Ancillary Procedure Department of Ophthalmology in [place], [place] [address] [place] [phone] Martell Ramirez M.D. [address] [place] [phone] 05/15/2025 2:45 PM CDT Office Visit Department of Ophthalmology in [address] [phone] Martell Ramirez M.D. [address] [place] [phone] documented as of this encounter Procedures Procedure Name Priority Date/Time Associated Diagnosis Comments OPHTHALMOLOGY IMAGE EXAM Routine 03/07/2025 12:10 AM CDT documented in this encounter Results * Eyes Spectralis OCT-Ophthalmology Image Exam (03/07/2025 12:10 AM CDT) Narrative IIMS - 03/07/2025 10:20 AM CDT This order has been created and auto-finalized to support the import of images acquired without order. The clinical documentation to support these images can be found on the encounter that produced images. us Provider Not In System IMG NON RAD IMAGING PROCE DURALE Final Result IIMS NA documented in this encounter Visit Diagnoses Not on filedocumented in this encounter Additional Health Concerns Assessment Noted Time PHQ-9 Depression Total Score: 3 03/13/20 14 8:24 AM CDT documented as of this encounter Care Teams Mental Health Program Specialist Relationship Specialty Start Date End Date Elsewhere, Pcp PCP - General Internal Medicine 01/17/23 documented as of this encounter
--- OUTSIDE RECORDS SUMMARY | 2025-03-07 09:45 | XMS_ITS | Encounter Summary ---
Author Organization [facility] Address [address] [place] [address] Care Team Providers Care Planning Official Name Role Phone Elsewhere, Pcp Primary Care Provider Unavailabl e Encounter Details Date Type Department Care Team (Latest Contact Info) Description 03/07/2025 9:45 AM CDT Ancillary Procedure Department of Ophthalmology in [place], [place] [address] [place] [address] Martell Ramirez M.D. [address] [place] [phone] Subluxation Lens Right Social History Tobacco Use Types Packs/Day Years Used Date Smoking Tobacco: Former Cigarettes Q uit: 05/19/2006 Passive Smoke Exposure: Never Smokeless Tobacco: Never Alcohol Use Standard Drinks/Week Comments Not Currently 3 (1 standard drink = 0.6 oz pur e alcohol) hasn't for months [facility] Utilities Answer Date Recorded In the past 12 months has e [employer], gas, oil, or water [employer] threatened to shut off services in your [...] your living situation today? I have a [facility] place to live 01/20/2025 Education Answer Date Recorded What is the highest level of school you have completed or the highest degree you have received? 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 [address] [place] [phone] 04/10/2025 1:00 PM CDT Office Visit Department of Ophthalmology in [place], [place] [address] [place] [address] Martell Ramirez M.D. [address] [place] [phone] 05/15/2025 1:00 PM CDT Ancillary Procedure Department of Ophthalmology in [place], [place] [address] [place] [address] Martell Ramirez M.D. [address] [place] [phone] 05/15/2025 1:30 PM CDT Ancillary Procedure Department of Ophthalmology in [place], [place] [address] [place] [phone] Martell Ramirez M.D. [address] [place] [phone] 05/15/2025 2:15 PM CDT Ancillary Procedure Department of Ophthalmology in [place], [place] [address] [place] [phone] Martell Ramirez M.D. [address] [place] [phone] 05/15/2025 2:45 PM CDT Office Visit Department of Ophthalmology in [place], [place] [address] [place] [phone] Martell Ramirez M.D. [address] [place] [phone] documented as of this encounter Procedures Procedure Name Priority Date/Time Associated Diagnosis Comments SCHEIMPFLUG TOMOGRAPHY (PENTACAM) - OU - BOTH EYES Routine 03/07/2025 9:13 AM CDT Subluxation Lens Right documented in this encounter Results * Scheimpflug Tomography (Pentacam) - OU - Both Eyes (03/07/2025 9:13 AM CDT) Narrative OPHTHALMOLOGY IMAGING EXAM - 03/07/2025 11:01 AM CDT Minimal astigmatism OU us Martell Ramirez M.D. OPHTH OTHER Final Resul t OPHTHALMOLOGY IMAGING EXAM documented in this encounter Visit Diagnoses Diagnosis Subluxation Lens Right documented in this encounter Additional Health Concerns Assessment Noted Time PHQ-9 Depression Total Score: 3 03/13/20 14 8:24 AM CDT documented as of this encounter Care Teams Planning Official Relationship Specialty Start Date End Date Elsewhere, Pcp PCP - General Internal Medicine 01/17/23 documented as of this encounter
--- OUTSIDE RECORDS SUMMARY | 2025-03-07 10:00 | XMS_ITS | Encounter Summary ---
Author Organization [facility] Address [address] [place] [address] Care Team Providers Care Lesson Instructor Name Role Phone Elsewhere, Pcp Primary Care Provider Unavailabl e Encounter Details Date Type Department Care Team (Latest Contact Info) Description 03/07/2025 10:00 AM CDT Ancillary Procedure Department of Ophthalmology in [place], [place] [address] [place] [address] Martell Ramirez M.D. [address] [place] [address] Subluxation Lens Right Social History Tobacco Use Types Packs/Day Years Used Date Smoking Tobacco: Former Cigarettes Q uit: 05/19/2006 Passive Smoke Exposure: Never Smokeless Tobacco: Never Alcohol Use Standard Drinks/Week Comments Not Currently 3 (1 standard drink = 0.6 oz pur e alcohol) hasn't for months [facility] Utilities Answer Date Recorded In the past 12 months has e [employer], gas, oil, or water [employer] threatened to shut off services in your [...] your living situation today? I have a [facility] place to live 01/20/2025 Education Answer Date Recorded What is the highest level of school you have completed or the highest degree you have received? 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 [address] [place] [phone] 04/10/2025 1:00 PM CDT Office Visit Department of Ophthalmology in [place], [place] [address] [place] [address] Martell Ramirez M.D. [address] [place] [phone] 05/15/2025 1:00 PM CDT Ancillary Procedure Department of Ophthalmology in [place], [place] [address] [place] [phone] Martell Ramirez M.D. [address] [place] [phone] 05/15/2025 1:30 PM CDT Ancillary Procedure Department of Ophthalmology in [place], [place] [address] [place] [phone] Martell Ramirez M.D. [address] [place] [phone] 05/15/2025 2:15 PM CDT Ancillary Procedure Department of Ophthalmology in [place], [place] [address] [place] [phone] Martell Ramirez M.D. [address] [place] [phone] 05/15/2025 2:45 PM CDT Office Visit Department of Ophthalmology in [address] [phone] Martell Ramirez M.D. [address] [place] [phone] documented as of this encounter Procedures Procedure Name Priority Date/Time Associated Diagnosis Comments ULTRASOUND BIOMICROSCOPY - OD - RIGHT Routine 03/07/2025 9:48 AM CDT Subluxation Lens Right documented in this encounter Results * Ultrasound Biomicroscopy (UBM) - OD - Right Eye (03/07/2025 9:48 AM CDT) Narrative OPHTHALMOLGY NON-IMAGING ORDERS - 03/07/2025 11:00 AM CDT 03/07/2025 UBM Right Eye: MRS protocol done. ZBK us Martell R Ramirez M.D. OPHTH ULTRASOUND Final Resu lt OPHTHALMOLGY NON-IMAGING ORDERS documented in this encounter Visit Diagnoses Diagnosis Subluxation Lens Right documented in this encounter Additional Health Concerns Assessment Noted Time PHQ-9 Depression Total Score: 3 03/13/20 14 8:24 AM CDT documented as of this encounter Care Teams Lesson Instructor Relationship Specialty Start Date End Date Elsewhere, Pcp PCP - General Internal Medicine 01/17/23 documented as of this encounter
--- OUTSIDE RECORDS SUMMARY | 2025-03-07 11:00 | XMS_ITS | Encounter Summary ---
Author Organization [facility] Address [address] [place] [address] Care Team Providers Care Cone Operator Name Role Phone Elsewhere, Pcp Primary Care Provider Unavailabl e Reason for Visit * Outpatient (Routine) - Closed Specialty Diagnoses / Procedures Referred By Britt barber Referred To Contact Ophthalmology Martell Ramirez M.D. [address] [place] [phone] Phone: tel: fax: Health System Referral ID Status Reason Start Date Expiration Date Visits Re quested Visits Authorized [id number] Closed 01/14/2025 07/16/2026 1 1 Encounter Details Date Type Department Care Team (Latest Contact Info) Description 03/07/2025 11:00 AM CDT Office Visit Department of Ophthalmology in [place], [place] [address] [place] [phone] Martell Ramirez M.D. [address] [place] [phone] Subluxation Lens Right (Primary Dx) Social History Tobacco Use Types Packs/Day Years Used Date Smoking Tobacco: Former Cigarettes Q uit: 05/19/2006 Passive Smoke Exposure: Never Smokeless Tobacco: Never Alcohol Use Standard Drinks/Week Comments Not Currently 3 (1 standard drink = 0.6 oz pur e alcohol) hasn't for months [facility] Utilities Answer Date Recorded In the past [...] your living situation today? I have a [facility] place to live 01/20/2025 Education Answer Date Recorded What is the highest level of school you have completed or the highest degree you have received? 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 - 03/07/2025 11:00 AM CDT This patient was referred by Martell Ramirez M.D.. Seen today for complicated cataract extraction right eye with aphakia # Cataract left eye # aphakia right eye - status post complicated cataract surgery right eye 01/13/25 at [facility] OCT Macula: 03/07/2025 Right eye: flat, good foveal contour Left eye: flat, good foveal contour #1 Status post 25G pars plana vitrectomy/SSIOL, right eye (Ashley/Renato) MX60 +16.0D Doing well. No further restrictions OD Call if decreased vision, increased photophobia, pain, discharge or increased redness occurs. Follow-up retina prn, ok for cataract removal OS Monday as planned with Dr. Mills documented in this encounter Plan of Treatment Upcoming Encounters Date Type Department Care Team (Late st Contact Info) Description 04/10/2025 12:30 PM CDT Ancillary Procedure Department of Ophthalmology in [address] [phone] Martell Ramirez M.D. [address] [place] [phone] 04/10/2025 1:00 PM CDT Office Visit Department of Ophthalmology in [address] [phone] Martell Ramirez M.D. [address] [place] [phone] 05/15/2025 1:00 PM CDT Ancillary Procedure Department of Ophthalmology in [address] [phone] Martell Ramirez M.D. [address] [place] [phone] 05/15/2025 1:30 PM CDT Ancillary Procedure Department of Ophthalmology in [address] [phone] Martell Ramirez M.D. [address] [place] [phone] 05/15/2025 2:15 PM CDT Ancillary Procedure Department of Ophthalmology in [place], [place] [address] [place] [address] Martell Ramirez M.D. [address] [place] [phone] 05/15/2025 2:45 PM CDT Office Visit Department of Ophthalmology in [place], [place] [address] [place] [address] Martell Ramirez M.D. [address] [place] [phone] documented as of this encounter Visit Diagnoses Diagnosis Subluxation Lens Right- Primary documented in this encounter Additional Health Concerns Assessment Noted Time PHQ-9 Depression Total Score: 3 03/13/20 14 8:24 AM CDT documented as of this encounter Care Teams Cone Operator Relationship Specialty Start Date End Date Elsewhere, Pcp PCP - General Internal Medicine 01/17/23 documented as of this encounter
--- OUTSIDE RECORDS SUMMARY | 2025-03-07 11:45 | XMS_ITS | Encounter Summary ---
Author Organization [facility] Address [address] [place] [address] Care Team Providers Care Junior Financial Analyst Name Role Phone Elsewhere, Pcp Primary Care Provider Unavailabl e Encounter Details Date Type Department Care Team (Latest Contact Info) Description 03/07/2025 11:45 AM CDT Ancillary Procedure Department of Ophthalmology in [place], [place] [address] [place] [address] Martell Ramirez M.D. [address] [place] [address] Subluxation Lens Right Social History Tobacco Use Types Packs/Day Years Used Date Smoking Tobacco: Former Cigarettes Q uit: 05/19/2006 Passive Smoke Exposure: Never Smokeless Tobacco: Never Alcohol Use Standard Drinks/Week Comments Not Currently 3 (1 standard drink = 0.6 oz pur e alcohol) hasn't for months [facility] Utilities Answer Date Recorded In the past 12 months has e [employer], gas, oil, or water [employer] threatened to shut off services in your [...] your living situation today? I have a [facility] place to live 01/20/2025 Education Answer Date Recorded What is the highest level of school you have completed or the highest degree you have received? 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 [address] [place] [phone] 04/10/2025 1:00 PM CDT Office Visit Department of Ophthalmology in [place], [place] [address] [place] [address] Martell Ramirez M.D. [address] [place] [phone] 05/15/2025 1:00 PM CDT Ancillary Procedure Department of Ophthalmology in [place], [place] [address] [place] [address] Martell Ramirez M.D. [address] [place] [phone] 05/15/2025 1:30 PM CDT Ancillary Procedure Department of Ophthalmology in [place], [place] [address] [place] [phone] Martell Ramirez M.D. [address] [place] [phone] 05/15/2025 2:15 PM CDT Ancillary Procedure Department of Ophthalmology in [place], [place] [address] [place] [phone] Martell Ramirez M.D. [address] [place] [phone] 05/15/2025 2:45 PM CDT Office Visit Department of Ophthalmology in [place], [place] [address] [place] [phone] Martell Ramirez M.D. [address] [place] [phone] documented as of this encounter Procedures Procedure Name Priority Date/Time Associated Diagnosis Comments OPTICAL COHERENCE TOMOGRAPHY - MACULA/RETINA - OU - BOTH EYES Routine 03/07/2025 11:00 AM CDT Subluxation Lens Right documented in this encounter Results * Optical Coherence Tomography - Macula/Retina - OU - Both Eyes (03/07/2025 11:00 AM CDT) Narrative OPHTHALMOLOGY IMAGING EXAM - 03/07/2025 11:00 AM CDT Attached OU us Martell Ramirez M.D. OPHTH TOMOGRAPHY Final Resu lt OPHTHALMOLOGY IMAGING EXAM documented in this encounter Visit Diagnoses Diagnosis Subluxation Lens Right documented in this encounter Additional Health Concerns Assessment Noted Time PHQ-9 Depression Total Score: 3 03/13/20 14 8:24 AM CDT documented as of this encounter Care Teams Junior Financial Analyst Relationship Specialty Start Date End Date Elsewhere, Pcp PCP - General Internal Medicine 01/17/23 documented as of this encounter
--- OUTSIDE RECORDS SUMMARY | 2025-03-18 12:45 | XMS_ITS | Encounter Summary ---
Author Organization [facility] Address [address] [place] [address] Care Team Providers Care Green Meat Packer Name Role Phone Elsewhere, Pcp Primary Care Provider Unavailabl e Reason for Visit * Reason Comments Subluxation Lens Right * Outpatient (Routine) - Closed Specialty Diagnoses / Procedures Referred By Contmaura t Referred To Contact Ophthalmology Martell Ramirez M.D. [address] [place] [phone] Phone: tel: fax: [facility] Referral ID Status Reason Start Date Expiration Date Visits Re quested Visits Authorized [id number] Closed 03/11/2025 09/10/2026 1 1 Encounter Details Date Type Department Care Team (Latest Contact Info) Description 03/18/2025 12:45 PM CDT Office Visit Department of Ophthalmology in [place], [place] [address] [place] [phone] Martell Ramirez M.D. [address] [place] [phone] Retained Fragment Cataract Status Post Surgery Left (Primary Dx) Social History Tobacco Use Types Packs/Day Years Used Date Smoking Tobacco: Former Cigarettes Q uit: 05/19/2006 Passive Smoke Exposure: Never Smokeless Tobacco: Never Alcohol Use Standard Drinks/Week Comments Not Currently 3 (1 standard drink = 0.6 oz pur e alcohol) hasn't for months [facility] Utilities Answer Date Recorded In the [...] your living situation today? I have a [facility] place to live 01/20/2025 Education Answer Date Recorded What is the highest level of school you have completed or the highest degree you have received? 12th grade 07/18/2022 Sex and Gender Information Value Date Recorded Sex Assigned at Male 12/18/2017 8:54 AM CDT Legal Sex Male 4:26 AM [employer] Gender Identity Male 12/18/2017 8:54 AM CDT Sexual Orientation Straight 12/18/2017 8: 54 AM CDT documented as of this encounter Progress Notes * Martell Ramirez M.D. - 03/18/2025 12:45 PM CDT This patient was referred by Martell Ramirez M.D.. Seen today for complicated cataract extraction right eye with aphakia # Aphakia left eye - status post complicated cataract surgery left eye February 2025 at [facility] # aphakia right eye - status post complicated cataract surgery right eye 01/13/25 at [facility] - now status post ssiol OD OCT Macula: 03/18/2025 Right eye: flat, good foveal contour Left eye: flat, good foveal contour #1 Status post 25G pars plana vitrectomy/SSIOL, right eye (Ramirez/Gross) MX60 +16.0D for -0.49 Doing well. No further restrictions OD Call if decreased vision, increased photophobia, pain, discharge or increased redness occurs. 03/18/2025 Now unfortunately the left eye has a RLM post complicated CEIOL last week. Will plan on fixating a lens in the left eye now. R/b/a/c to retained lens/aphakia repair with all associated procedures including vitrectomy, gas, possible silicone oil, possible scleral buckle discussed and patient consented. Patient understands risk of pain, bleeding, vision loss, infection, change in post-op refraction, and need for multiple surgeries Discussed need for post-op positioning and gas bubble restrictions (no altitude/airplanes/sleeping on back) and activity restrictions. Plan on 25g PPV/PPL/SSIOL OS - aim distance 03/31/25 MX60 +16.5D for -0.32 documented in this encounter Plan of Treatment Upcoming Encounters Date Type Department Care Team (Late st Contact Info) Description 04/10/2025 12:30 PM CDT Ancillary Procedure Department of Ophthalmology in [place], [place] [address] [place] [phone] Martell Ramirez M.D. [address] [place] [phone] 04/10/2025 1:00 PM CDT Office Visit Department of Ophthalmology in [place], [place] [address] [place] [phone] Martell Ramirez M.D. [address] [place] [phone] 05/15/2025 1:00 PM CDT Ancillary Procedure Department of Ophthalmology in [place], [place] [address] [place] [phone] Martell Ramirez M.D. [address] [place] [phone] 05/15/2025 1:30 PM CDT Ancillary Procedure Department of Ophthalmology in [place], [place] [address] [place] [phone] Martell Ramirez M.D. [address] [place] [phone] 05/15/2025 2:15 PM CDT Ancillary Procedure Department of Ophthalmology in [place], [place] [address] [place] [phone] Martell Ramirez M.D. [address] [place] [phone] 05/15/2025 2:45 PM CDT Office Visit Department of Ophthalmology in [address] [phone] Martell Ramirez M.D. [address] [place] [phone] documented as of this encounter Goals Goal Patient Goal Type Associated Problems Recent Progress Patient-Stated? Author Autogenerat ed Goal Care Plan Autogenerated Problem No Corky Tracy, C.O.A. documented as of this encounter Procedures Procedure Name Priority Date/Time Associated Diagnosis Comments OPHTHALMOLOGY OFFICE VISIT (CLINIC) Routine 03/18/2025 2:00 PM CDT documented in this encounter Results * Ophthalmology office visit (clinic): Self; General (03/18/2025 2:00 PM CDT) Martell Ramirez M.D. OUTPATIENT RETURN VISITS Fi nal Result documented in this encounter Visit Diagnoses Diagnosis Retained Fragment Cataract Status Post Surgery Left- Primary documented in this encounter Additional Health Concerns Active Problems Noted Date Diagnosed Date Autogenerated Problem 03/31/2025 Assessment Noted Time PHQ-9 Depression Total Score: 3 03/13/20 14 8:24 AM CDT documented as of this encounter Care Teams Green [employer] Packer Relationship Specialty Start Date End Date Elsewhere, Pcp PCP - General Internal Medicine 01/17/23 documented as of this encounter
--- OUTSIDE RECORDS SUMMARY | 2025-03-25 08:45 | XMS_ITS ---
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 Name Role Phone Mary Ruggiero Primary Care Provider UnavailNgero Moya Unavailable [phone] Jean Marie Deluca PA-C Unavailable Unavailable Praveen Pedersen Unavailable [phone] Allergies Allergen (clinical drug ingredient) Drug/Non Drug Allergy documented on EMR Reaction Allergy Type Onset Date Status metformin Metformin Unknown Drug Allergy Active REASON FOR VISIT Low back pain, Bilateral leg pain Medications Medication SIG (Take, Route, Frequency, Duration) Notes Start Date End Date Status Venlafaxine HCl ER 150 MG Oral; Duration: 90 Days Active Pregabalin 150 MG 1 capsule Oral Twice a day; Duration: 30 days 01/03/2023 Active hydrOXYzine HCl 25 MG Oral; Duration: 15 Days Active Atorvastatin Calcium 10 MG Oral; Duration: 90 Days Active Lisinopril-hydroCHLOROthiazi de 20-12.5 MG TAKE 1 TABLET BY MOUTH EVERY DAY Oral; Duration: 90 Days Active Triamcinolone Acetonide 0.1 % APPLY TOPICALLY TO THE AFFECTED AREA THREE TIMES DAILY External; Duration: 15 Days Active Mirtazapine 15 MG Oral; Duration: 90 Days Active Medrol 4 MG as directed on Medro l package Orally daily; Duration: 6 days 03/25/2025 Active Alendronate Sodium 70 MG Oral; Duration: 84 Days Active Tamsulosin HCl 0.4 MG Oral; Duration: 90 Days Active oxyCODONE HCl 10 MG 1 tablet as needed Orally TID Active Potassium Chloride ER 20 MEQ Oral; Duration: 90 Days Active Calcitonin (Wheatcroft) 200 UNIT/ACT Nasal; Duration: 30 Days Act viridiana Zolpidem Tartrate 10 MG Oral; Duration: 30 Days Active Social History Tobacco Use: Social History Observation Description Date Details (start date - stop date) Former Smoker NA - NA Tobacco Use/Smoking: Question Answer Notes Are you a former smoker AUDIT-C (Standard) Question Answer Notes Did you have a drink containing alcohol in the p ast year? No Points 0 Interpretation Negative Vital Signs Blood pressure systolic 128 mm Hg 03/25/20 25 Blood pressure diastolic 74 mm Hg 025 Height 72 in 03/25/2025 Weight 264 lbs 03/25/2025 BMI 35.8 kg/m2 03/25/2025 Encounters Encounter Location Date Provider Diagnosis [facility] [id number] [facility] [address] [place] [address] 03/25/2025 Praveen Pedersen Low back pain, unspecified M54.50 ; Spondylosis without myelopathy or radiculopathy, lumbosacral region M47.817 and Other chronic pain G89.29 Assessments Encounter Date Diagnosis (ICD Code) Assessment Notes Treatment Notes Treatment Clinical Notes Section Notes 03/25/2025 Low back pain, unspecified (ICD-10 - M54.50) 03/25/2025 Spondylosis without myelopathy or radiculopathy, lumbosacral region (ICD-10 - M47.817) 03/25/2025 Other chronic pain (ICD-10 - G89.29) Osvaldo returns to clinic today for a follow-up evaluation regarding his chronic low back pain. I have reviewed the [facility] database and did not find any inconsistencies. We discussed his current symptoms and medications. I will continue with a treatment plan consisting of conservative therapy at this time. The patient underwent repeat bilateral L4-S1 RFAs on 01/02/2025, and he reports 10% relief for 1 week. He inquires about next steps today. He has not completed a lumbar MRI in the past two years. Therefore, I have sent an order to [facility] in [place] for further evaluation of his symptoms. Regarding medications, I have started the patient on a Medrol dose pack for pain relief, and I instructed him to follow up with his primary care provider prior to starting this medication. This treatment plan was reviewed with Osvaldo, and he was agreeable. I will continue to monitor his progress and he will follow up in three weeks for imaging review. Plan: 1. Order updated lumbar MRI 2. Start MDP (discuss with PCP) 3. Follow up in three weeks for imaging review Discharge instructions reviewed verbally. Discussed the risks/benefits of prescribed medication. The patient was instructed to return to the office as scheduled and call with any questions, problems or concerns. 03/25/2025 Other Tara Dong , am serving as a scribe to document services personally performed by Praveen Pedersen PA-C, based upon my observations and the provider's statements to me. All documentation has been reviewed by the aforementioned CHIP as well as Johny Serrato MD, prior to being entered into the official medical record. I, Johny Serrato MD attest that the above named individual is acting in scribe capacity, has observed Praveen Pedersen's performance of the services and has documented them in accordance with her direction. The documentation recorded by the scribe accurately reflects the service Praveen Pedersen PA-C and Johny Serrato MD personally performed and the decisions made by them. Plan Of Treatment Medication Medication Name Sig Start Date Stop Date Notes Medrol 4 MG as directed on Medro l package Orally daily; Duration: 6 days 03/25/2025 Treatment Notes Assessment Notes Other chronic pain Osvaldo returns to clinic today for a follow-up evaluation regarding his chronic low back pain. I have reviewed the [place] [employer] database and did not find any inconsistencies. We discussed his current symptoms and medications. I will continue with a treatment plan consisting of conservative therapy at this time. The patient underwent repeat bilateral L4-S1 RFAs on 01/02/2025, and he reports 10% relief for 1 week. He inquires about next steps today. He has not completed a lumbar MRI in the past two years. Therefore, I have sent an order to [facility] in [place] for further evaluation of his symptoms. Regarding medications, I have started the patient on a Medrol dose pack for pain relief, and I instructed him to follow up with his primary care provider prior to starting this medication. This treatment plan was reviewed with Osvaldo, and he was agreeable. I will continue to monitor his progress and he will follow up in three weeks for imaging review. Plan: 1. Order updated lumbar MRI 2. Start MDP (discuss with PCP) 3. Follow up in three weeks for imaging review Discharge instructions reviewed verbally. Discussed the risks/benefits of prescribed medication. The patient was instructed to return to the office as scheduled and call with any questions, problems or concerns. Other Letitia, Tara Hook, am serving as a scribe to document services personally performed by Praveen Pedersen PA-C, based upon my observations and the provider's statements to me. All documentation has been reviewed by the aforementioned CHIP as well as Johny Serrato MD, prior to being entered into the official medical record. I, Johny Serrato MD attest that the above named individual is acting in scribe capacity, has observed Praveen Pedersen's performance of the services and has documented them in accordance with her direction. The documentation recorded by the scribe accurately reflects the service Praveen Pedersen PA-C and Johny Serrato MD personally performed and the decisions made by them. Pending Test Test Name Order Date MRI : Lumbar 03/25/2025 Next Appt Details Follow Up: 3 Weeks, Reason: Provider Name:Praveen Pedersen, Sherlyn 04/15/2025 08:30:00 AM, [id number] [facility], [address], [place], [address], Progress Notes * Osvaldo CEJADOB:1955 ( 69 yo M)Acc No.[id number]:03/25/2025 Progress Notes Patient: Osvaldo JAMES Provider: Mark Pedersen PA-C :1955 A ge:69 Y S ex:Male Date:03/25/2025 Phone: Address:[address] [place] [address] [address] [id number] Pcp:Mary Ruggiero Subjective: * Chief Complaints: * L ow back painBilateral leg pain * HPI: [place] visit: Osvaldo returns regarding his chronic low back pain with functional limitation including difficulty standing more than 10 minutes. He was last evaluated in 2022. He presents after completion of bilateral L4-S1 RFA on 08/03/2023 from which he received 90% relief for over a year (symptoms returned in 09/2024) and functional improvement including improved ability to stand. Interval history: Osvaldo underwent repeat bilateral L4-S1 RFAs on 01/02/2025, and he reports 10% relief for 1 week. He inquires about next steps today. He also c/o bilateral leg numbness/tingling. His other procedure history includes: - 01/02/2025 repeat bilateral L4-S1 RFAs (10% relief for 1 week) - 08/03/2023 bilateral L4-S1 RFAs (90% relief) - 03/28/2023 bilateral therapeutic SIJ injections (80% relief for 2 weeks) - 04/2022 TFESI (80% relief) - 07/23/2018 right L5-S1 TFE (Rayus) He has also had four right knee replacements, most recently in 09/2024 at [facility]. Previous Therapy: He has completed PT at [facility]. Previous Pain Medications: Oxycodone, Morphine Sulfate, Lyrica Regarding mental health, he is seeing a therapist and denies any plans to harm himself. P QRS MEASURE: 154,155 [address] you had two or more falls in the past year? N o, H ave you had any falls with injury in the past year? N o, P crsy of Care: D ocumented. D epression Screening: PHQ-9 L ittle interest or pleasure in doing things M ore than half the days, F eeling down, depressed, or hopeless S everal days, T rouble falling or staying asleep, or sleeping too much M ore than half the days, F eeling tired or having little energy N early every day, P oor appetite or overeating S everal days, F eeling bad about yourself or that you are a failure, or have let yourself or your family down S everal days, T rouble concentrating on things, such as reading the newspaper or watching television S everal days, M oving or speaking so slowly that other people could have noticed; or the opposite, being so fidgety or restless that you have been moving around a lot more than usual N ot at all, T houghts that you would be better off or of hurting yourself in some way N ot at all, T otal Score 1 1, I nterpretation M oderate Depression. I ntervention?Depression Screening Findings P ositve, N eb of the standardized tool used for adult depression screening: P atient Health Questionnaire (PHQ-9), F ollow-Up for Depression M ental health care education. * ROS: G eneral/Constitutional: Chills/Fevers N o. F atigue Y es. W eight gain?No. W eight loss N o. E ndocrine: Dizziness N o. E xcessive sweating N o. W eakness Y es. R espiratory: Chest pain N o. C ough N o. S hortness of breath at rest N o. G astrointestinal: Abdominal pain N o. B lood in stool N o. C onstipation N o. D iarrhea N o. H ematology: Easy bruising Y es. P rolonged bleeding N o. S wollen glands N o. M usculoskeletal: Painful joints Y es. S wollen joints Y es. ? S kin: Skin lesion(s) Y es. N eurologic: Balance difficulty N o. H eadache N o. T ingling/Numbness Y es. P sychiatric: Alcoholism N o. A nxiety Y es. S ubstance abuse?No. * Medical History: * Surgical History: R ight TKA and revision 2019Bladder Stimulator Implant 02/2023Right TKA replacement 09/2024 * Hospitalization/Major Diagno stic Procedure: S urgical reasons Staph infection x2 Elevated ammonia levels * Family History: N o Family History documented.. * Social History: T obacco Use: T obacco Use/Smoking A re you a f ormer smoker. M iscellaneous: M arital status: . Occupation: Retired. D rug/Alcohol: A SYLVESTER-C (Standard) D id you have a drink containing alcohol in the past year? N o,?Points 0 , I nterpretation N egative. * Medications: T akingoxyCODONE HCl 10 MG Tablet 1 tablet as needed Orally TID Potassium Chloride ER 20 MEQ Tablet Extended Release Oral Calcitonin (Wheatcroft) 200 UNIT/ACT Solution Nasal Zolpidem Tartrate 10 MG Tablet Oral Triamcinolone Acetonide 0.1 % Ointment APPLY TOPICALLY TO THE AFFECTED AREA THREE TIMES DAILY External Mirtazapine 15 MG Tablet Oral Alendronate Sodium 70 MG Tablet Oral Tamsulosin HCl 0.4 MG Capsule Oral hydrOXYzine HCl 25 MG Tablet Oral Atorvastatin Calcium 10 MG Tablet Oral Lisinopril-hydroCHLOROthiazide 20-12.5 MG Tablet TAKE 1 TABLET BY MOUTH EVERY DAY Oral Venlafaxine HCl ER 150 MG Capsule Extended Release 24 Hour Oral Pregabalin 150 MG Capsule 1 capsule Oral Twice a day Taking oxyCODONE HCl 10 MG Tablet 1 tablet as needed Orally TID Taking Potassium Chloride ER 20 MEQ Tablet Extended Release Oral Taking Calcitonin (Wheatcroft) 200 UNIT/ACT Solution Nasal Taking Zolpidem Tartrate 10 MG Tablet Oral Taking Triamcinolone Acetonide 0.1 % Ointment APPLY TOPICALLY TO THE AFFECTED AREA THREE TIMES DAILY External Taking Mirtazapine 15 MG Tablet Oral Taking Alendronate Sodium 70 MG Tablet Oral Taking Tamsulosin HCl 0.4 MG Capsule Oral Taking hydrOXYzine HCl 25 MG Tablet Oral Taking Atorvastatin Calcium 10 MG Tablet Oral Taking Lisinopril-hydroCHLOROthiazide 20-12.5 MG Tablet TAKE 1 TABLET BY MOUTH EVERY DAY Oral Taking Venlafaxine HCl ER 150 MG Capsule Extended Release 24 Hour Oral Taking Pregabalin 150 MG Capsule 1 capsule Oral Twice a day * Allergies: M davin[Allergies Verified] Objective: * Vitals: H t: 72 in, Wt:264lbs, BMI:35.8, BP:128/74mm Hg, VAS-Today:81-10, VAS-Av 1-10, VAS-High: 10 1-10. * Examination: M usculoskeletal: Constitutional: M orbidly obese body habitus, well groomed, in no acute distress, catheter adjacent to right lower extremity. Musculoskeletal: N ormal gait and station,sits comfortably. Lumbar Spine:Limited flexion and extension, positive facet loading bilaterally, midline tenderness. Lower Extremities: N ormal and symmetric muscle tone, STRENGTH: 5/5 Iliopsoas bilaterally, 5/5 hamstrings bilaterally, 5/5 quadriceps bilaterally, 5/5 ant. tibialis (dorsiflexion) bilaterally, 5/5 gastrocnemius soleus (plantar flexion) bilaterally, 5/5 EHL bilaterally. Skin: N o rashes, scars, or lesions on visible skin. Neurological N ormal coordination upper extremities, normal coordination lower extremities, alert and oriented x3, normal mood and affect. Sensation:Normal sensation to touch in bilateral lower extremities. Reflexes:Absent patellar reflexes bilaterally, absent Achilles reflexes bilaterally. Nerve Compression:Positive SLR bilaterally. Assessment: * Assessment: 1. S pondylosis without myelopathy or radiculopathy, lumbosacral region - M47.817 ?2. L ow back pain, unspecified - M54.50 (Primary) 3 . O ther chronic pain - G89.29 Plan: * Treatment: 2.?Other chronic pain? Start Medrol Tablet Therapy Pack, 4 MG, as directed on Medrol package, Orally, daily, 6 days, 1 pack, Refills 0.?? Notes: Osvaldo returns to clinic today for a follow-up evaluation regarding his chronic low back pain. I have reviewed the [facility] database and did not find any inconsistencies. We discussed his current symptoms and medications. I will continue with a treatment plan consisting of conservative therapy at this time. The patient underwent repeat bilateral L4-S1 RFAs on 01/02/2025, and he reports 10% relief for 1 week. He inquires about next steps today. He has not completed a lumbar MRI in the past two years. Therefore, I have sent an order to [facility] in [place] for further evaluation of his symptoms. Regarding medications, I have started the patient on a Medrol dose pack for pain relief, and I instructed him to follow up with his primary care provider prior to starting this medication. This treatment plan was reviewed with Osvaldo, and he was agreeable. I will continue to monitor his progress and he will follow up in three weeks for imaging review. Plan: 1. Order updated lumbar MRI 2. Start MDP (discuss with PCP) 3. Follow up in three weeks for imaging review Discharge instructions reviewed verbally. Discussed the risks/benefits of prescribed medication. The patient was instructed to return to the office as scheduled and call with any questions, problems or concerns.??3.?Others? Notes: Tara Dong, am serving as a scribe to document services personally performed by Praveen Pedersen PA-C, based upon my observations and the provider's statements to me. All documentation has been reviewed by the aforementioned CHIP as well as Johny Serrato MD, prior to being entered into the official medical record. Johny Dong MD attest that the above named individual is acting in scribe capacity, has observed Praveen Pedersen's performance of the services and has documented them in accordance with her direction. The documentation recorded by the scribe accurately reflects the service Praveen Pedersen PA-C and Johny Serrato MD personally performed and the decisions made by them.?? * Procedure Codes: * Preventive Medicine: iSpine Inventory Forms: L ow Back Oswestry O swestry Score (0-100) 5 2,?TREVIN Interpretation 4 0-59 (Severe Disability). Counseling: B OR Care goal follow-up plan: A tanner Normal BMI Follow-up L ifestyle education regarding diet Patient declined. * Follow Up: 3 Weeks * Billing Information: * Visit Code: [id number] Established Patient level 4. * Procedure Codes: * Sign off status: Completed true * Provider: Mark Pedersen PA-C Date: 03/25/2025 Generated for Sergey gant/Tonia/Albino on: 04/08/2025 02:01 PM CDT History and Physical Notes * HPI (History of Present Illness) Category Sub-Category Detail Notes Category Not es Depression Screening PHQ-9 Little inte rest or pleasure in doing things: More than half the days Feeling down, depressed, or hopeless: Se veral days Trouble falling or staying a sleep, or sleeping too much: More than half the days Feeling tired or having little energy: N early every day Poor appetite or overeating: Several day s Feeling bad about yourself o r that you are a failure, or have let yourself or your family down: Several days Trouble concentrating on thi ngs, such as reading the newspaper or watching television: Several days Moving or speaking so slowly that other people could have noticed; or the opposite, being so fidgety or restless that you have been moving around a lot more than usual: Not at all Thoughts that you would be b brenda off or of hurting yourself in some way: Not at all Total Score: 11 Interpretation: Moderate Depression Intervention Depression Screening Findings: Bienvenido spencer Name of the standardized too l used for adult depression screening:: Patient Health Questionnaire (PHQ-9) Follow-Up for Depression: Mental health care education PQRS MEASURE 154,155 Fall Risk Have you had t wo or more falls in the past year?: No Have you had any falls with injury in th e past year?: No Plan of Care:: Documented Examination Category Sub-Category Detail Notes Category Not es Musculoskeletal Constitutional: Morbidly obese b kelly habitus, well groomed, in no acute distress, catheter adjacent to right lower extremity Musculoskeletal: Normal gait and stat ion, sits comfortably. Lumbar Spine: Limited flexion and extension, positive facet loading bilaterally, midline tenderness. Lower Extremities: Normal and symmetric muscle tone, STRENGTH: 5/5 Iliopsoas bilaterally, 5/5 hamstrings bilaterally, 5/5 quadriceps bilaterally, 5/5 ant. tibialis (dorsiflexion) bilaterally, 5/5 gastrocnemius soleus (plantar flexion) bilaterally, 5/5 EHL bilaterally Skin: No rashes, scars, or lesions on visible skin Neurological Normal coordination upper extremities, normal coordination lower extremities, alert and oriented x3, normal mood and affect. Sensation: Normal sensation to touch in bilateral lower extremities. Reflexes: Absent patellar reflexes bilaterally, absent Achilles reflexes bilaterally. Nerve Compression: Positive SLR bilaterally
--- OUTSIDE RECORDS SUMMARY | 2025-03-31 08:31 | XMS_ITS | Encounter Summary ---
Author Organization [facility] Address [address] [place] [id number] Care Team Providers Care Intervention Specialist Name Role Phone Elsewhere, Pcp Primary Care Provider Unavailabl e Encounter Details Date Type Department Care Team (Latest Contact Info) Description 03/31/2025 8:31 AM CDT - 03/31/2025 2:00 PM CDT Hospital Encounter [facility] [address] [place] [phone] Martell Ramirez M.D. [address] [place] [phone] Discharge Disposition: Home or Self Care Social History Tobacco Use Types Packs/Day Years Used Date Smoking Tobacco: Former Cigarettes Q uit: 05/19/2006 Passive Smoke Exposure: Never Smokeless Tobacco: Never Alcohol Use Standard Drinks/Week Comments Not Currently 3 (1 standard drink = 0.6 oz pur e alcohol) hasn't for months [facility] Utilities Answer Date Recorded In the past 12 months has [employer], gas, oil, or water [employer] threatened to shut off services in your [...] your living situation today? I have a [facility] place to live 01/20/2025 Education Answer Date Recorded What is the highest level of school you have completed or the highest degree you have received? 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 Gender Identity Male 12/18/2017 8:54 AM CDT Sexual Orientation Straight 12/18/2017 8: 54 AM CDT documented as of this encounter Last Filed Vital Signs Vital Sign Reading Time Taken Comments Blood Pressure 143/69 03/31/2025 1:30 PM CDT Pulse 78 03/31/2025 1:20 PM CDT Temperature 36.6 C (97.9 F) 03/31/2025 1:40 PM CDT Respiratory Rate 21 03/31/2025 1:20 PM CDT Oxygen Saturation 97% 03/31/2025 1:20 PM CDT Inhaled Oxygen Concentration - - Weight 124 kg (273 lb 5.9 oz) 03/31/2025 9:00 AM CDT Height 178 cm (5' 10.08) 03/31/2025 9:00 AM CDT Body Mass Index 39.14 03/31/2025 9:00 AM CDT documented in this encounter Discharge Instructions * Discharge Instructions* Martell Ramirez M.D. - 03/31/2025 2:00 PM CDT Instructions after eye surgery Starting 03/31/2025 Keep your eye patch on overnight. It will be removed tomorrow in clinic during your clinic visit. You do NOT need to use any eye drops until after your follow- up visit tomorrow. Positioning: If the bubble of gas, air, or silicone oil was placed in the eye during surgery, a specific head position will be required. This position should be maintained for as much of the time as possible. The bubble will hold the retina in position as the retina heals. Very important: If you have a gas air bubble, do not fly in an airplane, do not go to high altitude, scuba dive, or undergo elective surgery (nitrous oxide). YOUR POSITION: You should maintain head elevated position today and head elevated when you go to sleep tonight. Do not rest or sleep on your back. Activities: If you have been instructed to maintain a certain head position, it is important to comply. During the first week, do not engage in vigorous activity. Lifting is restricted to 10 lb. Avoid areas that are jian or dirty. Avoid sexual activity for 1 week. When washing hair, avoid getting the tap water into the operated eye. Pain: Pain will be worse at about 12-24 hours after the operation as the anesthetic wears off. After this period, the pain will decrease over the next several days. Take pain medications as recommended by your doctor. Call your doctor if the pain should get worse. Most cases do not require a prescriptions for pain medications yet this depends upon the type of surgery. In general, we recommend iqgt-vtd-oziwfao pain medications such as Extra Strength Tylenol. Check with your doctor before using Aspirin, Motrin, Advil, or Aleve. Shield or glasses: For the first week after surgery, you must wear a pair of glasses (any type) or hard shield at all times (awake or sleeping) to make sure that the eye is not accidentally bumped. Wear the shield when sleeping or napping. It is okay to stop wearing this protection after 10 days. It is not necessary to wear a soft patch under the hard shield unless otherwise instructed. Other: There may be a mild, bloody discharge or mattering from the eye. Your eye may also remain red for up to 4-6 weeks after surgery. This is normal and should decrease slowly over time. If these conditions worsen, please contact the office for evaluation. Any questions or concerns please call [phone] (Business hours) [phone] (Evenings and weekends, ask for the Beam Department Supervisor instrument person) documented in this encounter Medications at Time of Discharge atorvastatin (LIPITOR) 10 mg tablet Take 1 tablet by mouth at bedtime. 11/16/2015 busPIRone (BuSpar) 15 mg tablet Take 15 mg by mouth 2 (two) times a day. celecoxib (CeleBREX) 200 mg capsule Take 200 mg by mouth daily. cholecalciferol (VITAMIN D3) 25 mcg (1,000 Unit) capsule Take 25 mcg by mouth daily. 2022 clobetasoL (TEMOVATE) 0.05 % ointment APPLY TOPICALLY TO AFFECTED AREA(S) 2 TIMES DAILY. 04/25/2022 DULoxetine (CYMBALTA) [address] capsule Take 30 mg by mouth daily. 07/15/2023 DULoxetine (CYMBALTA) [address] capsule Take 60 mg by mouth daily. 08/15/2023 furosemide (LASIX) 40 mg tablet Take 40 mg by mouth daily. 07/03/2023 hydrOXYzine (ATARAX) 25 mg tablet Take by mouth daily. lisinopril-hydro CHLOROthiazide (for_PRINZIDE,ZE STORETIC) 20-12.5 mg per tablet 1 tablet daily. 12/13/2017 mirtazapine (REMERON) 30 mg tablet Take 30 mg by mouth at bedtime. 45 mg 08/27/2023 MULTIVITAMIN ORAL Take 1 tablet by mouth. oxyCODONE (ROXICODONE) 10 mg IR tablet Take 1 tablet by mouth as needed for pain. 07/30/2023 potassium chloride (K-TAB) 20 mEq CR tablet Take 20 mEq by mouth daily. 09/15/2022 pregabalin (LYRICA) 150 mg capsule Take 150 mg by mouth 2 (two) times a day. 10/02/2023 tamsulosin (FLOMAX) 0.4 mg 24 hr capsule Take 2 capsules (0.8 mg total) by mouth daily. 60 capsule 3 09/20/2021 vitamin E 450 mg (1,000 Unit) capsule Take 1 capsule (450 mg total) by mouth daily. 30 capsule 11 05/16/2022 albuterol 90 mcg/actuation inhaler Inhale 1-2 puffs every 4 (four) hours as needed. 10/02/2023 alendronate (FOSAMAX) 70 mg tablet Take by mouth over 168 hr. 10/14/2022 calcitonin, salmon, (MIACALCIN) 200 unit/actuation nasal spray Administer into nostril(s). 01/12/2023 ibuprofen (MOTRIN) 800 mg tablet Take 800 mg by mouth as needed. miscellaneous medical supply [facility] CPAP machine for home use at pressure: 8 CM H20 , Heated humidifier x 1, Humidifier chamber x 1, Full face mask with cushion x 1, Heated tubing x 1, Headgear x 1, Filters: Disposable x 1pk & Reusable x 1pk, Length of Need: 99 months, Frequency of use: Daily 01/13/2017 polymyxin B-trimethoprim (Polytrim) 10,000 unit- 1 mg/mL ophthalmic solution Administer 1 drop into the left eye 4 (four) times a day. 10 mL 03/31/2025 prednisoLONE acetate (Pred Forte) 1 % ophthalmic suspension Administer 1 drop into the left eye daily. 10 mL 3 03/31/2025 predniSONE (DELTASONE) 20 mg tablet as directed. 10/02/2023 documented as of this encounter OR Notes * Op Note - Martell Ramirez M.D. - 03/31/2025 12:06 PM CDT Pre-op Diagnosis Retained Fragment Cataract Status Post Surgery Left Post-op Diagnosis Retained Fragment Cataract Status Post Surgery Left Assistant Director Of Security A pathologist assistant actively participated and was necessary for one or more of the following: opening, exposure and visualization, maintaining hemostasis, wound closure resulting in its safe and expeditious completion. Findings As expected Complications None Operative Note Narrative Prior to the procedure, informed consent was obtained from the patient following a discussion of the risks, benefits, and alternatives of the procedure, including but not limited to risk of infection, bleeding, need for further surgery, glaucoma, retinal detachment, double vision, loss of vision, loss of the eye, cosmetic disfigurement, and loss of life. The patient and the operative site were identified by the attending surgeon, and the patient was then taken to the operating room. An intravenous line was started and cardiac and blood pressure monitoring devices were applied. Topical tetracaine drops and monitored anesthesia care was administered without complications. Under appropriate sed ation and monitoring by Anesthesia, the patient was prepped and draped in the standard sterile fashion. A lid speculum was inserted. The sub tenon block was given through an inferior conjunctiva cutdown incision. A 25 gauge infusion cannula was inserted inferotemporally using the self-retaining port. Port placement was verified by direct visualization and infusion was initiated. A toric eyeglass lens generator was used to lexa the cornea at 2 points located 180?? apart, representing a horizontal meridian. Limited nasal and temporal conjunctiva peritomies, centered along the corneal hernández, were then created using Peter scissors and 0.12 forceps. Hemostasis was achieved with cautery.Two nasal and temporal sclerotomies were then created, with each pair located 3 mm posterior to thelimbus and 5 mm apart., centered by the corneal hernández. Self-retaining 25 gauge cannulas were placedin the supranasal and superotemporal sclerotomy sites. Following placement of the cannulas, the light pipe and vitreous cutter were introduced into the vitreous cavity, visualization revealed retained lens material and aphakia. On scleral depression, there were no retinal tears noted A core vitrectomy was performed followed by close peripheral shave over 360??. The remaining lens fragments were removed using mechanical fragmentation via pars plana lensectomy using the vitreous cutter A super sharp blade was then used to make a superonasal paracentesis and viscoelastic was used to fill the anterior chamber. Two strands of 8 0 [place]-Glenn suture were opened, the needles were removed and the suture was passed through the nasal and temporal islets of a Bausch and Lomb MX60 positive 16.5 diopter intraocular lens. Using a 27 gauge max field services analyst and MST forceps, the Stephen[place]-Glenn suture was passed into the anterior chamber and externalized through 1 of the 4 corresponding sclerotomies using a hand to hand technique. The intra-ocular lens was then inserted into the anterior chamber without complication. The cannulas were removed. Suture ends were then tied carried down carefully to ensure ad equate centration of the intra-ocular lens. The suture knots were then trimmed and rotated into thesclerotomy. The sclerotomies were inspected for leakage and the superonasal and superotemporal sclerotomies required suture with 7 0 Vicryl suture. Viscoelastic was removed and the clear corneal incision was then closed using 10 0 nylon suture. The infusion cannula was removed and closed with 6 0 plain gut suture. The peritomies were then closedusing 6 0 plain gut suture ensuring complete coverage of the underlying Stephen[place]-Glenn suture. A normal intra-ocular pressure was verified. Subconjunctival injection of Ancef and dexamethasone were provides performed in the inferior fornixunder direct visualization of the needle. The lid speculum was removed, Maxitrol ointment was instilled and the patch and protective shield were applied. The patient was transferred to the recovery room in satisfactory condition. There were no intraoperative complications. Bear Ramirez M.D. documented in this encounter Plan of Treatment Upcoming Encounters Date Type Department Care Team (Late st Contact Info) Description 04/10/2025 12:30 PM CDT Ancillary Procedure Department of Ophthalmology in [address] [phone] Martell Ramirez M.D. [address] [place] [phone] 04/10/2025 1:00 PM CDT Office Visit Department of Ophthalmology in [address] [phone] Martell Ramirez M.D. [address] [place] [phone] 05/15/2025 1:00 PM CDT Ancillary Procedure Department of Ophthalmology in [address] [phone] Martell Ramirez M.D. [address] [place] [phone] 05/15/2025 1:30 PM CDT Ancillary Procedure Department of Ophthalmology in [place], [place] [address] [place] [phone] Martell Ramirez M.D. [address] [place] [phone] 05/15/2025 2:15 PM CDT Ancillary Procedure Department of Ophthalmology in [place], [place] [address] [place] [phone] Martell Ramirez M.D. [address] [place] [phone] 05/15/2025 2:45 PM CDT Office Visit Department of Ophthalmology in [place], [place] [address] [place] [phone] Martell Ramirez M.D. [address] [place] [phone] documented as of this encounter Goals Goal Patient Goal Type Associated Problems Recent Progress Patient-Stated? Author Autogenerat ed Goal Care Plan Autogenerated Problem No Corky Tracy, C.O.A. documented as of this encounter Procedures Procedure Name Priority Date/Time Associated Diagnosis Comments GLUCOSE POCT, B Routine 03/31/2025 12:12 PM CDT VITRECTOMY - PARS PLANA 25 GAUGE 03/31/2025 11:35 AM CDT Retained Fragment Cataract Status Post Surgery Left Case Notes @ [employer]ST[employer]ARD[employer] 8:35, tpu 11 documented in this encounter Results * Glucose, POCT (03/31/2025 12:12 PM CDT) Glucose, POCT, B 75 70 - 140 mg/dL 03/31/2025 12:17 PM CDT PCSM Site Capillary 03/31/2025 12:17 PM CDT PCSM Blood 03/31/2025 12:1 2 PM CDT 03/31/2025 12:18 PM CDT us Unknown Provider LAB POCT ORDERABLES-MANUAL Ingrid romero Result POC [facility] [address] [place] [address], [facility] Dexter POC [address] [place] [address] documented in this encounter Visit Diagnoses Diagnosis Retained Fragment Cataract Status Post Surgery Left- Primary documented in this encounter Admitting Diagnoses Diagnosis Retained Fragment Cataract Status Post Surgery Left documented in this encounter Administered Medications Inactive Administered Medications - up to 3 most recent administrations Medication Order MAR Action Action Date Dose Rate Site acetaminophen tablet 1,000 mg (TylenoL) 1,000 mg, oral, Once, On Mon03/31/25 at 1415, For 1 dose, PACU (only) Given 03/31/2025 1:57 PM CDT 1,000 mg chlorhexidine 0.12 % mouthwash 15 mL (Peridex) 15 mL, swish & spit, Once as needed, Chlorhexidine mouthwash (Peridex) should be given if patient did not complete oral care, if completion is greater than 4 hours prior to surgery or procedure start time and they do not have the opportunity to brush their teeth now (or at this time)., Starting on Mon03/31/25 at 1032, For 1 dose, Pre-Op, Instruct patient to swish entire content of Chlorhexidine 0.12% mouthwash (PERIDEX) 15 mL cup for 30 seconds, then spit, swish & spit. If patient is at risk for aspiration, apply Chlorhexidine 0.12% mouthwash to a swab and gently swab the patient's teeth and gums. Ensure swab is not oversaturated. cyclopentolate 1 % ophthalmic solution 1 drop (CyclogyL) 1 drop, left eye, Every 5 min, First dose on Mon03/31/25 at 1100, For 3 doses, Pre-Op, In operative eye. Given 03/31/2025 10:46 AM CDT 1 drop Given 03/31/2025 10:44 AM CDT 1 drop Given 03/31/2025 10:42 AM CDT 1 drop dexAMETHasone injection 2 mg (Decadron) 2 mg, subconjunctival, Once in surgery, OR use only, Starting on Mon03/31/25 at 1254, For 1 dose, Intra-Op, Inject into LEFT. iygsrwmpt-BHEkjbjkvha-ntggguyxvsnup human recombinant (Ophthalmic Block Solution #4) 9.3 mg-3.5 mg-11.2 Units/mL 20.1 mL 20.1 mL, ophthalmic, Once in surgery, OR use only, Starting on Mon03/31/25 at 1254, For 1 dose, Intra-Op phenylephrine 2.5 % ophthalmic solution 1 drop (Mydfrin) 1 drop, left eye, Every 5 min, First dose on Mon03/31/25 at 1100, For 3 doses, Pre-Op, In operative eye. Given 03/31/2025 10:46 AM CDT 1 drop Given 03/31/2025 10:44 AM CDT 1 drop Given 03/31/2025 10:42 AM CDT 1 drop sodium chloride 0.9 % injection 10 mL 10 mL, intravenous, As needed, line care, Starting on Mon03/31/25 at 1032, Pre-Op, Peripheral Intravenous Catheter and Rapid Infusion Catheter, prior to blood sampling, post blood transfusion or post blood sampling sodium chloride 0.9 % injection 3 mL 3 mL, intravenous, As needed, line care, Starting on Mon03/31/25 at 1032, Pre-Op, Prior to and following infusion and between multiple consecutive infusions: sodium chloride 0.9 % injection sodium chloride 0.9 % injection 3 mL 3 mL, intravenous, Every 12 hours scheduled, First dose on Mon03/31/25 at 2100, Pre-Op, Peripheral Intravenous Catheter and Rapid Infusion Catheter, when no infusion to maintain patency tropicamide 1 % ophthalmic solution 1 drop (Mydriacyl) 1 drop, left eye, Every 5 min, First dose on Mon03/31/25 at 1100, For 3 doses, Pre-Op, In operative eye. Given 03/31/2025 10:46 AM CDT 1 drop Given 03/31/2025 10:44 AM CDT 1 drop Given 03/31/2025 10:42 AM CDT 1 drop documented in this encounter Active and Recently Administered Medications Times are shown in CDT. Scheduled Medication Order 03/29/2025 03/30/2025 03/31/2025 acetaminophen tablet 1,000 mg (TylenoL) (COMPLETED) 1,000 mg, oral, Once, On Mon03/31/25 at 1415, For 1 dose, PACU (only) 1357 (Given - Provid er: Tatum Austin RMikelNMikel) cyclopentolate 1 % ophthalmic solution 1 drop (CyclogyL) (COMPLETED) 1 drop, left eye, Every 5 min, First dose on Mon03/31/25 at 1100, For 3 doses, Pre-Op, In operative eye. 1042 (Given - Provid er: Karen Hines R.N.)1044 (Given - Provider: Karen Hines R.N.)1046 (Given - Provider: Karen Hines R.N.) phenylephrine 2.5 % ophthalmic solution 1 drop (Mydfrin) (COMPLETED) 1 drop, left eye, Every 5 min, First dose on Mon03/31/25 at 1100, For 3 doses, Pre-Op, In operative eye. 1042 (Given - Provid er: Karen Hines R.N.)1044 (Given - Provider: Karen Hines R.N.)1046 (Given - Provider: Karen Hines R.N.) sodium chloride 0.9 % injection 3 mL 3 mL, intravenous, Every 12 hours scheduled, First dose on Mon03/31/25 at 2100, Pre-Op, Peripheral Intravenous Catheter and Rapid Infusion Catheter, when no infusion to maintain patency tropicamide 1 % ophthalmic solution 1 drop (Mydriacyl) (COMPLETED) 1 drop, left eye, Every 5 min, First dose on Mon03/31/25 at 1100, For 3 doses, Pre-Op, In operative eye. 1042 (Given - Provid er: Karen Hines R.N.)1044 (Given - Provider: Karen Hines R.N.)1046 (Given - Provider: Karen Hines R.N.) Continuous Medication Order 03/29/2025 03/30/2025 03/31/2025 Lactated Ringer's 20 mL/hr, intravenous, Continuous, Starting on Mon03/31/25 at 1215, PACU & Post-Op 1347 (Stopped - Prov ider: Tatum Austin RMikelNMikel) PRN Medication Order 03/29/2025 03/30/202503/31/2025 balanced salt solution ophthalmic irrigation (BSS) (CANCELED) As needed, Starting on Mon03/31/25 at 1227, Intra-Op 1227 (Given - Provid er: Martell Ramirez M.D. - Comment: Used throughout procedure) balanced salt solution plus ophthalmic irrigation (BSS Plus) (CANCELED) As needed, Starting on Mon03/31/25 at 1227, Intra-Op 1227 (Given - Provid er: Martell Ramirez M.D. - Comment: Used throughout procedure) BUPivacaine PF 0.75 % (7.5 mg/mL) injection (Marcaine) (CANCELED) As needed, Starting on Mon03/31/25 at 1253, Intra-Op 1253 (Given - Provid er: Martell Ramirez M.D.) ceFAZolin subconjunctival 25 mg (Ancef) (COMPLETED) 25 mg, subconjunctival, Once in surgery, OR use only, Starting on Mon03/31/25 at 1254, For 1 dose, Intra-Op, Inject into LEFT. SUBCONJUNCTIVAL Use Only. Single dose vial, discard remainder. Bilateral administration requires two separate vials. 1253 (Given - Provid er: Martell Ramirez M.D.) chlorhexidine 0.12 % mouthwash 15 mL (Peridex) 15 mL, swish & spit, Once as needed, Chlorhexidine mouthwash (Peridex) should be given if patient did not complete oral care, if completion is greater than 4 hours prior to surgery or procedure start time and they do not have the opportunity to brush their teeth now (or at this time)., Starting on Mon03/31/25 at 1032, For 1 dose, Pre-Op, Instruct patient to swish entire content of Chlorhexidine 0.12% mouthwash (PERIDEX) 15 mL cup for 30 seconds, then spit, swish & spit. If patient is at risk for aspiration, apply Chlorhexidine 0.12% mouthwash to a swab and gently swab the patient's teeth and gums. Ensure swab is not oversaturated. chondroitin sulf-sod hyaluron intraocular injection (Viscoat) (CANCELED) As needed, Starting on Mon03/31/25 at 1230, Intra-Op 1230 (Given - Provid er: Martell Ramirez M.D. - Comment: Used throughout procedure) dexAMETHasone injection (Decadron) (CANCELED) As needed, Starting on Mon03/31/25 at 1256, Intra-Op 1256 (Given - Provid er: Martell Ramirez M.D.) dexAMETHasone injection 2 mg (Decadron) 2 mg, subconjunctival, Once in surgery, OR use only, Starting on Mon03/31/25 at 1254, For 1 dose, Intra-Op, Inject into LEFT. hypromellose intraocular solution (Ocucoat) (CANCELED) As needed, Starting on Mon03/31/25 at 1228, Intra-Op 1228 (Given - Provid er: Martell Ramirez M.D. - Comment: Used throughout procedure) lidocaine (PF) 9.3 mL, hyaluronidase 1.5 mL, BUPivacaine PF 9.3 mL 20.1 mL injection (Ophthalmic Block Solution #4) (CANCELED) As needed, Starting on Mon03/31/25 at 1204, Intra-Op 1204 (Given - Provid er: Martell Ramirez M.D.) cmyobcsox-ZADiperljyh-remfxsuknmek e human recombinant (Ophthalmic Block Solution #4) 9.3 mg-3.5 mg-11.2 Units/mL 20.1 mL 20.1 mL, ophthalmic, Once in surgery, OR use only, Starting on Mon03/31/25 at 1254, For 1 dose, Intra-Op neomycin-polymyxin B-dexameth ophthalmic ointment (Maxitrol) (CANCELED) As needed, Starting on Mon03/31/25 at 1256, Intra-Op 1256 (Given - Provid er: Martell Ramirez M.D.) sodium chloride 0.9 % injection 10 mL 10 mL, intravenous, As needed, line care, Starting on Mon03/31/25 at 1032, Pre-Op, Peripheral Intravenous Catheter and Rapid Infusion Catheter, prior to blood sampling, post blood transfusion or post blood sampling sodium chloride 0.9 % injection 3 mL 3 mL, intravenous, As needed, line care, Starting on Mon03/31/25 at 1032, Pre-Op, Prior to and following infusion and between multiple consecutive infusions: sodium chloride 0.9 % injection tetracaine (PF) 0.5 % ophthalmic solution (Altacaine) (CANCELED) As needed, Starting on Mon03/31/25 at 1210, Intra-Op 1210 (Given - Provid er: Martell Ramirez M.D.) triamcinolone acetonide injection (Kenalog-40) (CANCELED) As needed, Starting on Mon03/31/25 at 1254, Intra-Op 1254 (Given - Provid er: Martell Ramirez M.D.) documented in this encounter Additional Health Concerns Active Problems Noted Date Diagnosed Date Autogenerated Problem 03/31/2025 Assessment Noted Time PHQ-9 Depression Total Score: 3 03/13/20 14 8:24 AM CDT documented as of this encounter Care Teams Intervention Specialist Relationship Specialty Start Date End Date Elsewhere, Pcp PCP - General Internal Medicine 01/17/23 documented as of this encounter
--- OUTSIDE RECORDS SUMMARY | 2025-03-31 11:37 | XMS_ITS | Encounter Summary ---
Author Organization [facility] Address [address] [place] [phone] Care Team Providers Care Medical Office Rep Name Role Phone Elsewhere, Pcp Primary Care Provider Unavailabl e Encounter Details Date Type Department Care Team (Late st Contact Info) Description 03/31/2025 11:37 AM CDT - 03/31/2025 1:45 PM CDT Surgery [facility] [address] [place] [phone] Martell Ramirez M.D. [address] [place] [phone] VITRECTOMY - PARS PLANA 25 GAUGE, LENSECTOMY, SCLERAL SUTURED INTRA OCULAR LENS, LEFT. Social History Tobacco Use Types Packs/Day Years Used Date Smoking Tobacco: Former Cigarettes Q uit: 05/19/2006 Passive Smoke Exposure: Never Smokeless Tobacco: Never Alcohol Use Standard Drinks/Week Comments Not Currently 3 (1 standard drink = 0.6 oz pur e alcohol) hasn't for months [facility] Utilities Answer Date Recorded In the past 12 months has e [employer], gas, oil, or water [employer] threatened to shut off services in your [...] your living situation today? I have a [facility] place to live 01/20/2025 Education Answer Date Recorded What is the highest level of school you have completed or the highest degree you have received? 12th grade 07/18/2022 Sex and Gender Information Value Date Recorded Sex Assigned at Male 12/18/2017 8:54 AM CDT Legal Sex Male 4:26 AM DIALER Gender Identity Male 12/18/2017 8:54 AM CDT [...] this encounter Discharge Instructions * Discharge Instructions* Ramirez, Martell R, M.D. - 03/31/2025 2:00 PM CDT Instructions [...] type of surgery. In general, we recommend onlv-fnz-dwqvluw pain medications such as Extra Strength Tylenol. [...] evaluation. Any questions or concerns please call [phone] (Business hours) [phone] (Evenings and weekends, ask for the National Accounts Sales litigation partner) documented in this encounter Medications at Time [...] by mouth as needed. miscellaneous medical supply [facility] CPAP machine for home use at pressure: [...] Retained Fragment Cataract Status Post Surgery Left Assisted Living Associate A commercial lines assistant actively participated and was necessary for [...] visualization and infusion was initiated. A toric lens edger was used to lexa the cornea at [...] anterior chamber. Two strands of 8 0 Detroit-Glenn suture were opened, the needles were removed and the suture was passed through the nasal and temporal islets of a Bausch and Lomb MX60 positive 16.5 diopter intraocular lens. Using a 27 gauge max deckhand fishing vessel and MST forceps, the Detroit-Glenn suture was passed into the anterior chamber [...] suture ensuring complete coverage of the underlying Detroit-Glenn suture. A normal intra-ocular pressure was verified. [...] CDT Ancillary Procedure Department of Ophthalmology in [address] [phone] Martell Ramirez M.D. [address] [place] [phone] 04/10/2025 1:00 PM CDT Office Visit Department of Ophthalmology in [address] [phone] Martell Ramirez M.D. [address] [place] [phone] 05/15/2025 1:00 PM CDT Ancillary Procedure Department of Ophthalmology in [address] [phone] Martell Ramirez M.D. [address] [place] [phone] 05/15/2025 1:30 PM CDT Ancillary Procedure Department of Ophthalmology in [place], [place] [address] [place] [phone] Martell Ramirez M.D. [address] [place] [phone] 05/15/2025 2:15 PM CDT Ancillary Procedure Department of Ophthalmology in [place], [place] [address] [place] [phone] Martell Ramirez M.D. [address] [place] [phone] 05/15/2025 2:45 PM CDT Office Visit Department of Ophthalmology in [place], [place] [address] [place] [phone] Martell Ramirez M.D. [address] [place] [phone] documented as of this encounter Goals Goal [...] Status Post Surgery Left Case Notes @ SECURITY AUDITOR 8:35, tpu 11 documented in this encounter Results * Glucose, POCT (03/31/2025 12:12 PM CDT) Glucose, POCT, B 75 70 - 140 mg/dL 03/31/2025 12:17 PM CDT PCSM Site Capillary 03/31/2025 12:17 PM CDT PCSM Blood 03/31/2025 12:1 2 PM CDT 03/31/2025 12:18 PM CDT us Unknown Provider LAB POCT ORDERABLES-MANUAL Ingrid romero Result POC RST [facility] [address] [place] [address], [facility] [place] POC [address] [place] [address] documented in this encounter Visit Diagnoses Diagnosis Retained Fragment Cataract Status Post Surgery Left- Primary Retained Fragment Cataract Status Post Surgery Left documented in this encounter Admitting Diagnoses Diagnosis [...] Given 03/31/2025 1:57 PM CDT 1,000 mg balanced salt solution ophthalmic irrigation (BSS) As needed, Starting on Mon03/31/25 at 1227, Intra-Op Given 03/31/2025 12:27 PM CDT 30 mL Left Eye balanced salt solution plus ophthalmic irrigation (BSS Plus) As needed, Starting on Mon03/31/25 at 1227, Intra-Op Given 03/31/2025 12:27 PM CDT 250 mL Left Eye BUPivacaine PF 0.75 % (7.5 mg/mL) injection (Marcaine) As needed, Starting on Mon03/31/25 at 1253, Intra-Op Given 03/31/2025 12:53 PM CDT 1 mL Left Eye ceFAZolin subconjunctival 25 mg (Ancef) 25 mg, subconjunctival, Once in surgery, OR use only, Starting on Mon03/31/25 at 1254, For 1 dose, Intra-Op, Inject into LEFT. SUBCONJUNCTIVAL Use Only. Single dose vial, discard remainder. Bilateral administration requires two separate vials. Given 03/31/2025 12:53 PM CDT 1 mL Left Eye chlorhexidine 0.12 % mouthwash 15 mL (Peridex) [...] oversaturated. chondroitin sulf-sod hyaluron intraocular injection (Viscoat) As needed, Starting on Mon03/31/25 at 1230, Intra-Op Given 03/31/2025 12:30 PM CDT 1 Syringe Left Eye cyclopentolate 1 % ophthalmic solution 1 drop (CyclogyL) 1 drop, left eye, Every 5 min, First dose on Mon03/31/25 at 1100, For 3 doses, Pre-Op, In operative eye. Given 03/31/2025 10:46 AM CDT 1 drop Given 03/31/2025 10:44 AM CDT 1 drop Given 03/31/2025 10:42 AM CDT 1 drop dexAMETHasone injection (Decadron) As needed, Starting on Mon03/31/25 at 1256, Intra-Op Given 03/31/2025 12:56 PM CDT 2 mg Left Eye dexAMETHasone injection 2 mg (Decadron) 2 mg, subconjunctival, Once in surgery, OR use only, Starting on Mon03/31/25 at 1254, For 1 dose, Intra-Op, Inject into LEFT. hypromellose intraocular solution (Ocucoat) As needed, Starting on Mon03/31/25 at 1228, Intra-Op Given 03/31/2025 12:28 PM CDT 1 mL Left Eye lidocaine (PF) 9.3 mL, hyaluronidase 1.5 mL, BUPivacaine PF 9.3 mL 20.1 mL injection (Ophthalmic Block Solution #4) As needed, Starting on Mon03/31/25 at 1204, Intra-Op Given 03/31/2025 12:04 PM CDT 5 mL Left Eye jakeozhbb-DEGhgolfyfj-ttgfwxzrki ase human recombinant (Ophthalmic Block Solution #4) 9.3 mg-3.5 mg-11.2 Units/mL 20.1 mL 20.1 mL, ophthalmic, Once in surgery, OR use only, Starting on Mon03/31/25 at 1254, For 1 dose, Intra-Op neomycin-polymyxin B-dexameth ophthalmic ointment (Maxitrol) As needed, Starting on Mon03/31/25 at 1256, Intra-Op Given 03/31/2025 12:56 PM CDT 1 Application Left Eye phenylephrine 2.5 % ophthalmic solution 1 drop [...] Catheter, when no infusion to maintain patency tetracaine (PF) 0.5 % ophthalmic solution (Altacaine) As needed, Starting on Mon03/31/25 at 1210, Intra-Op Given 03/31/2025 12:10 PM CDT 2 drops Left Eye triamcinolone acetonide injection (Kenalog-40) As needed, Starting on Mon03/31/25 at 1254, Intra-Op Given 03/31/2025 12:54 PM CDT 40 mg Left Eye tropicamide 1 % ophthalmic solution 1 drop [...] er: Karen Hines R.N.)1044 (Given - Provider: Kaern Hines R.N.)1046 (Given - Provider: Karen Hines R.N.) Continuous Medication Order 03/29/2025 03/30/2025 03/31/2025 Lactated Ringer's 20 mL/hr, intravenous, Continuous, Starting on Mon03/31/25 at 1215, PACU & Post-Op 1347 (Stopped - Prov ider: Tatum Austin R.N.) PRN Medication Order 03/29/2025 03/30/2025 03/31/2025 balanced salt solution ophthalmic irrigation (BSS) (CANCELED) [...] (Given - Provid er: Martell Ramirez M.D.) ecbxrasuy-YFKcjbpvnnj-nzxfnennfxxl e human recombinant (Ophthalmic Block Solution #4) [...] documented as of this encounter Care Teams Medical Office Rep Relationship Specialty Start Date End Date Elsewhere, Pcp PCP - General Internal Medicine 01/17/23 documented as of this encounter
--- OUTSIDE RECORDS SUMMARY | 2025-03-31 11:39 | XMS_ITS | Encounter Summary ---
Author Organization [facility] Address [address] [place] [address] Care Team Providers Care Sap Security Consultant Name Role Phone Elsewhere, Pcp Primary Care Provider Unavailabl e Encounter Details Date Type Department Care Team (Late st Contact Info) Description 03/31/2025 11:39 AM CDT Anesthesia Event [facility] [address] [place] [phone] Laly Carrillo [address] [place] [phone] Anesthesia Record Procedure Summary Procedure Name Responsible Anesthesiologist Anesthesia Start Time Anesthesia Stop Time VITRECTOMY - PARS PLANA 25 GAUGE, LENSECTOMY, SCLERAL SUTURED INTRA OCULAR LENS, LEFT. (Left: Eye) Laly Carrillo 03/31/25 1139 03/31/25 1306 Events Date Time Event Comment 03/31/2025 1139 Anesthesia Music Director Anesthesi a transport medically necessary Report received and care transferred Vital signs stable during transfer Ventilation and oxygen saturation stable during transport 1139 An Start Machine/Equipme nt Checked Infection Precautions Followed Procedure/Site Verified NPO Status Verified Supine Standard ASA Monitors Applied 1146 Turnover to Proceduralist 1206 Proc Start 1247 Quick Note 1254 Turnover to ANE Staff 1255 Proc Fin 1256 an stop data 1306 An End I completed my handoff to the receiving staff during which we 1. Identified the patient 2. Identified the responsible provider 3. Reviewed the pertinent medical history 4. Discussed the surgical course 5. Reviewed intra-op anesthesia management and issues during anesthesia 6. Set expectations for post-procedure period 7. Allowed opportunity for questions and acknowledgement of understanding. Meds Name Total midazolam PF injection 1 mg/mL 2 mg lidocaine 2% (mg) injection 100 mg ondansetron PF 4 mg/2 mL injection 4 mg propofol 10 mg/mL injection 90 mg Lactated Ringers Free Drip 300 mL * Agents No agents on file. * Blood No blood administrations on file. Lines, Drains, and Airways Type Details Placement Removal Wound 02/09/23; N; Punctur e; Sacrum; Mid; gauze and tegaderm 02/09/23 0000 by Bonnie Lipscomb R.N. Wound 02/22/23; 1345; Inci hortencia; Back; Lower, Right; low back; dressing: dermabond 02/22/23 1345 by Bonnie Lipscomb RMikelN. Suprapubic Catheter 01/20/25 (not new) 01/20/25 0000 by Radha Tucker RMikelN. Wound Eye; Left 03/31/25 1211 by Wound 01/20/25; 1450; N; Incision; Eye; Right; 03/31/25; 1212; Healed 01/20/25 1450 by Meghan Menjivar RMikelNMikel 03/31/25 1212 by Ruby Walker RNigel Peripheral IV Placement Date: 03/18 01/10; Placement Time: 1047; Catheter Size: 22 G; Orientation: Anterior, Lower, Right; Location: Forearm; Site Prep: Chlorhexidine (Preferred); Technique: Anatomical landmarks; Insertion Attempts: 1; Removal Date: 03/31/25; Removal Time: 1359; Removal Reason: Per protocol 03/31/25 1047 by Mariel Oswald RMikelNMikel 03/31/25 1359 by Tatum Austin RNigel documented in this encounter Social History Tobacco Use Types Packs/Day Years Used Date Smoking Tobacco: Former Cigarettes Q uit: 05/19/2006 Passive Smoke Exposure: Never Smokeless Tobacco: Never Alcohol Use Standard Drinks/Week Comments Not Currently 3 (1 standard drink = 0.6 oz pur e alcohol) hasn't for months [facility] Utilities Answer Date Recorded In the [...] your living situation today? I have a [facility] place to live 01/20/2025 Education Answer Date Recorded What is the highest level of school you have completed or the highest degree you have received? 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 (Left: Eye) Diagnosis: Retained Fragment Cataract Status Post Surgery Left (Retained Fragment Cataract Status Post Surgery Left [H59.022].) Providers: Martell Ramirez M.D. Responsible Provider: Laly Carrillo Anesthesia Type: MAC ASA Status: 3 Anesthesia Type: MAC Last vitals Vitals Value Taken Time BP 140/70 03/31/25 13:02 Temp 36.6 ??C 03/31/25 13:03 Pulse 82 03/31/25 13:07 Resp 21 03/31/25 13:07 SpO2 96 % 03/31/25 13:07 Vitals shown include unfiled device data. Please reference Vitals flowsheet for most recent vital signs. Anesthesia Post Evaluation Patient Disposition: dismissal Cardiovascular status: hemodynamics (HR & BP) acceptable Respiratory status: patent airway with spontaneous effort Temperature: normothermic Oxygen requirements: room air Level of consciousness: awake Pain score: pain adequately controlled and/or at baseline Post Op nausea/vomiting: none Hydration status: euvolemic Notable Events No notable events documented. * Anesthesia Preprocedure Evaluation - Slava Urias M.D. - 03/31/2025 11:23 AM CDT Preprocedure Anesthesia & H&P Assessment Procedure Summary Date/Time: 03/31/25 1137 Procedures: VITRECTOMY - PARS PLANA 25 GAUGE, LENSECTOMY, SCLERAL SUTURED INTRA OCULAR LENS, ALL ASSOCIATED PROCEDURES, LEFT. (Left: Eye) LENSECTOMY. (Left: Eye) Diagnosis: Retained Fragment Cataract Status Post Surgery Left [H59.022] Pre-op diagnosis: Retained Fragment Cataract Status Post Surgery Left [H59.022]. Location: [address] 03 806 / [facility] in [place], [place] Providers: Martell Ramirez M.D. Pertinent components of the patient's history including current problem list, medical history, surgical history, family history, social history, medications and allergies were reviewed. Present illness and pre-op diagnosis were confirmed. The planned surgery / procedure was verified with the patient / legal guardian. The patient's general health condition remains unchanged RELEVANT COMORBID CONDITIONS CV (+) Hypertension Essential Primary ENDO (+) Diabetes Mellitus Type 2 Without Complication (HCC) PSYCH (+) Depression Major One Episode Mild ONC (+) Primary Malignant Neoplasm Of Prostate (HCC) Endocrine/Metabolic (+) Hyperlipidemia Sleep (+) Apnea Sleep Obstructive Other (+) Morbid Severe Obesity Due To Excess Calories (HCC) (+) Retained Fragment Cataract Status Post Surgery Left OBJECTIVE PHYSICAL EXAMINATION Airway (HEENT) Mallampati: II TM Distance: >3 FB Neck ROM: Full Mouth Opening: >3 cm Cardiovascular Rhythm: Regular Rate: Normal Cardiovascular Assessment: cardiovascular normal Pulmonary Pulmonary Assessment: Clear General / Constitutional Constitutional Assessment: Obese ASSESSMENT / PLAN ANESTHESIA PLAN ASA: 3 Anesthesia Plan: MAC Patient seen and allergies reviewed, anesthesia plan and risks discussed directly with patient /legal guardian or through an pattern repair person. The use of blood products not discussed Approval to Proceed: approved for anesthesia documented in this encounter Plan of Treatment Upcoming Encounters Date Type Department Care Team (Late st Contact Info) Description 04/10/2025 12:30 PM CDT Ancillary Procedure Department of Ophthalmology in [address] [phone] Martell Ramirez M.D. [address] [place] [phone] 04/10/2025 1:00 PM CDT Office Visit Department of Ophthalmology in [place], [place] [address] [place] [phone] Martell Ramirez M.D. [address] [place] [phone] 05/15/2025 1:00 PM CDT Ancillary Procedure Department of Ophthalmology in [place], [place] [address] [place] [phone] Martell Ramirez M.D. [address] [place] [phone] 05/15/2025 1:30 PM CDT Ancillary Procedure Department of Ophthalmology in [place], [place] [address] [place] [phone] Martell Ramirez M.D. [address] [place] [phone] 05/15/2025 2:15 PM CDT Ancillary Procedure Department of Ophthalmology in [place], [place] [address] [place] [phone] Martell Ramirez M.D. [address] [place] [phone] 05/15/2025 2:45 PM CDT Office Visit Department of Ophthalmology in [place], [place] [address] [place] [phone] Martell Ramirez M.D. [address] [place] [phone] documented as of this encounter Goals Goal Patient Goal Type Associated Problems Recent Progress Patient-Stated? Author Autogenerat ed Goal Care Plan Autogenerated Problem No Corky Tracy, C.O.A. documented as of this encounter Visit Diagnoses Not on filedocumented in this encounter Administered Medications Inactive Administered Medications - up to 3 most recent administrations Medication Order MAR Action Action Date Dose Rate Site Lactated Ringer's intravenous, Continuous Infusion: Per Instructions PRN, Starting on Mon03/31/25 at 1139, Anesthesia Intra-op New Bag 03/31/2025 11:39 AM CDT lidocaine (PF) (cardiac) injection intravenous, As needed, Starting on Mon03/31/25 at 1151, Anesthesia Intra-op Given 03/31/2025 11:51 AM CDT 100 mg midazolam (PF) injection (Versed) intravenous, As needed, Starting on Mon03/31/25 at 1141, Anesthesia Intra-op Given 03/31/2025 11:51 AM CDT 1 mg Given 03/31/2025 11:41 AM CDT 1 mg ondansetron (PF) injection (Zofran) intravenous, As needed, Starting on Mon03/31/25 at 1151, Anesthesia Intra-op Given 03/31/2025 11:51 AM CDT 4 mg propofoL injection (Diprivan) intravenous, As needed, Starting on Mon03/31/25 at 1159, Anesthesia Intra-op Given 03/31/2025 12:03 PM CDT 20 mg Given 03/31/2025 12:01 PM CDT 20 mg Given 03/31/2025 11:59 AM CDT 50 mg documented in this encounter Additional Health Concerns Active Problems Noted Date Diagnosed Date Autogenerated Problem 03/31/2025 Assessment Noted Time PHQ-9 Depression Total Score: 3 03/13/20 14 8:24 AM CDT documented as of this encounter Care Teams Sap Security Consultant Relationship Specialty Start Date End Date Elsewhere, Pcp PCP - General Internal Medicine 01/17/23 documented as of this encounter
--- OUTSIDE RECORDS SUMMARY | 2025-04-01 08:00 | XMS_ITS | Encounter Summary ---
Author Organization [facility] Address [address] [place] [address] Care Team Providers Care [place] [employer] Group Leader Name Role Phone Elsewhere, Pcp Primary Care Provider Unavailabl e Reason for Visit * Reason Comments Post-op Follow-up * Outpatient (Routine) - Closed Specialty Diagnoses / Procedures Referred By Britt t Referred To Contact Ophthalmology Martell Ramirez M.D. [address] [place] [phone] Phone: tel: fax: [facility] Referral ID Status Reason Start Date Expiration Date Visits Re quested Visits Authorized [id number] Closed 03/11/2025 09/10/2026 1 1 Encounter Details Date Type Department Care Team (Latest Contact Info) Description 04/01/2025 8:00 AM CDT Office Visit Department of Ophthalmology in [place], [place] [address] [place] [phone] Martell Ramirez M.D. [address] [place] [phone] Aphakia Left Eye (Primary Dx); Retained Fragment Cataract Status Post Surgery Left Social History Tobacco Use Types Packs/Day Years Used Date Smoking Tobacco: Former Cigarettes Q uit: 05/19/2006 Passive Smoke Exposure: Never Smokeless Tobacco: Never Alcohol Use Standard Drinks/Week Comments Not Currently 3 (1 standard drink = 0.6 oz pur e alcohol) hasn't for months [facility] Utilities Answer Date Recorded In the [...] your living situation today? I have a [facility] place to live 01/20/2025 Education Answer Date Recorded What is the highest level of school you have completed or the highest degree you have received? 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 - 04/01/2025 8:00 AM CDT This patient was referred by Martell Ramirez M.D.. Seen today for complicated cataract extraction right eye with aphakia # Aphakia left eye - status post complicated cataract surgery left eye February 2025 at [facility] # aphakia right eye - status post complicated cataract surgery right eye 01/13/25 at [facility] - now status post ssiol OD OCT Macula: 04/01/2025 Right eye: flat, good foveal contour Left eye: flat, good foveal contour #1 Status post 25G pars plana vitrectomy/SSIOL, right eye (Ramirez/Gross) MX60 +16.0D for -0.49 Doing well. No further restrictions OD Call if decreased vision, increased photophobia, pain, discharge or increased redness occurs. 04/01/2025 Now unfortunately the left eye has a RLM post complicated CEIOL last week. Now status post 25g PPV/PPL/SSIOL OS - aim distance 03/31/25 (MX60 +16.5D for - 0.32) Ramirez POD1 Doing well. Polytrim, 1 drop 4x/day for 1 week into operative eye. Prednisolone acetate 1% 4x/day, then taper by 1drop/day each week into operative eye as per writteninstructions. Wear shield at night and glasses during the day. Activity restrictions discussed. Call if decreased vision, increased photophobia, pain, discharge or increased redness occurs. Positioning: none Follow-up in 1 week documented in this encounter Plan of Treatment Upcoming Encounters Date Type Department Care Team (Late st Contact Info) Description 04/10/2025 12:30 PM CDT Ancillary Procedure Department of Ophthalmology in [place], [place] [address] [place] [phone] Martell Ramirez M.D. [address] [place] [phone] 04/10/2025 1:00 PM CDT Office Visit Department of Ophthalmology in [place], [place] [address] [place] [phone] Martell Ramirez M.D. [address] [place] [phone] 05/15/2025 1:00 PM CDT Ancillary Procedure Department of Ophthalmology in [place], [place] [address] [place] [phone] Martell Ramirez M.D. [address] [place] [phone] 05/15/2025 1:30 PM CDT Ancillary Procedure Department of Ophthalmology in [place], [place] [address] [place] [phone] Martell Ramirez M.D. [address] [place] [phone] 05/15/2025 2:15 PM CDT Ancillary Procedure Department of Ophthalmology in [place], [place] [address] [place] [phone] Martell Ramirez M.D. [address] [place] [phone] 05/15/2025 2:45 PM CDT Office Visit Department of Ophthalmology in [address] [phone] Martell Ramirez M.D. [address] [place] [phone] documented as of this encounter Goals Goal Patient Goal Type Associated Problems Recent Progress Patient-Stated? Author Autogenerat ed Goal Care Plan Autogenerated Problem No Corky Tracy, C.O.A. documented as of this encounter Visit Diagnoses Diagnosis Aphakia Left Eye- Primary Retained Fragment Cataract Status Post Surgery Left documented in this encounter Additional Health Concerns Active Problems Noted Date Diagnosed Date Autogenerated Problem 03/31/2025 Assessment Noted Time PHQ-9 Depression Total Score: 3 03/13/20 14 8:24 AM CDT documented as of this encounter Care Teams [place] [employer] [place] [employer] Group Leader Relationship Specialty Start Date End Date Elsewhere, Pcp PCP - General Internal Medicine 01/17/23 documented as of this encounter
--- OUTSIDE RECORDS SUMMARY | 2025-04-08 14:01 | XMS_ITS | Encounter Summary ---
Author Organization [facility] Address [address] [place] [address] Care Team Providers Care Chemical Cell Changer Name Role Phone Mary Ruggiero PA-C Primary Care Provider [phone] Tanya Andrews APRN LUSTER REPAIRER Unavailable [phone] Deep Pires MD Unavailable [phone] Reason for Visit * Reason Comments Medication Refill Encounter Details Date Type Department Care Team (Late st Contact Info) Description 05/27/2024 Refill [facility] [address] [place] [phone] Robyn Keys, FEI LUSTER REPAIRER [address] [place] [address] Medication Refill Social History Tobacco Use Types Packs/Day Years Used Date Smoking Tobacco: Never Smokeless Tobacco: Never Alcohol Use Standard Drinks/Week Comments Not Currently 0 (1 standard drink = 0.6 oz pur e alcohol) PHQ-2 Answer Date Recorded PHQ-2 Score 2 04/22/2024 Adolescent Education Answer Date Record ed Getting School Help Needed Not on file 06/10 Sex and Gender Information Value Date Recorded Sex Assigned at Not on file 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 Source: [facility]. 06/25/2024 documented as of this encounter Care Teams Chemical Cell Changer Relationship Specialty Start Date End Date Mary Ruggiero PA-C [address] [place] [address] PCP - General 01/16/24 Tanya Andrews APRN LUSTER REPAIRER [address] [facility] [address] [place] [address] Nurse Practitioner Urology 03/22/24 Deep Pires MD [address] [facility] [address] [place] [address] Assigned Surgical Provider 05/10/24 documented as of this encounter
--- OUTSIDE RECORDS SUMMARY | 2025-04-08 14:01 | XMS_ITS ---
Author Organization [facility] Address [address] [place] [address] Care Team Providers Care Parts Clerk Plant Maintenance Name Role Phone Elsewhere, Pcp Primary Care Provider Unavailabl e Active Problems * This document contains information received from the source organization and may not represent a complete record from that organization. 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 Past Treatment and Therapy Plans No past plan information found. Past Radiation Episodes * IMRT: ProstateOverview* First Treatment Date Last Treatment Date Treatment Site Technique Goal Episode Provider 09/01/2021 10/08/2021 Prostate IMRT Curative * Linked Problems Primary Malignant Neoplasm O f Prostate Treatment Courses* Course 1x Prostate LNs 09/01/2021 - 10/08/2021 Treatment Period Fraction Dose Fractions Total Dose Plans Planned F1 prostateLN 09/01/2021 - 10/08/2021 270 cGy 7,020 cGy Reference Points Delivered [id number] 09/01/2021 - 10/08/2021 7,020 cGy Lifetime Dose Tracking * Chemical [...]
--- OUTSIDE RECORDS SUMMARY | 2025-04-08 14:01 | XMS_ITS | Encounter Summary ---
Author Organization [facility] Address [address] [place] [address] Care Team Providers Care Contribution Solicitor Name Role Phone Mary Ruggiero PA-C Primary Care Provider [phone] Tanya Andrews APRN PEOPLE GREETER Unavailable [phone] Deep Pires MD Unavailable [phone] Reason for Visit * Reason Comments Medication Refill Encounter Details Date Type Department Care Team (Late st Contact Info) Description 02/06/2024 Refill [facility] [address] [facility] [place] [phone] Robyn Keys, FEI PEOPLE GREETER [address] [place] [address] Medication Refill Social History Tobacco Use Types [...] on file 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 Source: [facility]. 06/25/2024 documented as of this encounter Care Teams Contribution Solicitor Relationship Specialty Start Date End Date Mary Ruggiero PA-C [address] [place] [address] PCP - General 01/16/24 Tanya Andrews APRN PEOPLE GREETER [address] [facility] [address] [place], [place] [address] Nurse Practitioner Urology 03/22/24 Deep Pires MD [address] [facility] [address] [place], [place] [phone] Assigned Surgical Provider 05/10/24 documented as of this encounter
--- OUTSIDE RECORDS SUMMARY | 2025-04-08 14:01 | XMS_ITS | Encounter Summary ---
Author Organization [facility] Address [address] [place] [address] Care Team Providers Care Drupal Programmer Name Role Phone Mary Ruggiero PA-C Primary Care Provider Tanya Andrews APRN AIR CHIPPER Unavailable [phone] Deep Pires MD Unavailable [phone] Reason for Visit * Reason Comments Medication Refill Encounter Details Date Type Department Care Team (Late st Contact Info) Description 05/25/2024 Refill [facility] [address] [facility] [place] [place] [phone] Robyn Keys, FEI AIR CHIPPER [address] [place] [address] Medication Refill Social History Tobacco Use Types [...] on file 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 Source: [employer]. 06/25/2024 documented as of this encounter Care Teams Drupal Programmer Relationship Specialty Start Date End Date Mary Ruggiero PA-C [address] [place] [address] PCP - General 01/16/24 Tanya Andrews APRN AIR CHIPPER [address] [facility] [address] [place] [address] Nurse Practitioner Urology 03/22/24 Deep Pires MD [address] [facility] [address] [place] [address] Assigned Surgical Provider 05/10/24 documented as of this encounter
--- OUTSIDE RECORDS SUMMARY | 2025-04-08 14:01 | XMS_ITS | Clinical Summary ---
Author Organization [facility] Address [address] [place] [address] Care Team Providers Care Special Events Driver Name Role Phone Elsewhere, Pcp Primary Care Provider Unavailabl e Source Comments Patient records contain information from all sites at [facility]. For routine questions regarding patient records, call [phone] during business hours, M-F 8:00 AM - 5:00 PM Central Time. Record requests for emergency care only can be directed to [phone] at any time.[facility] Allergies Active Allergy Reactions Criticality Noted Date Comments Metformin GI intolerance 07/30/2021 Adhesive Other (see comments) Medium 03/31/2025 Fragile skin on forearms, has had skin tears from adhesive tape in the past Medications * This document contains information received from the source organization and may not represent a complete record from that organization. atorvastatin (LIPITOR) 10 mg tablet Take 1 tablet by mouth at bedtime. 6 Active lisinopril-hyd roCHLOROthiazi de (for_PRINZIDE, ZESTORETIC) 20-12.5 mg per tablet 1 tablet daily. 8 Active MULTIVITAMIN ORAL Take 1 tablet by mouth. Active miscellaneous medical supply misc CPAP machine for home use at pressure: 8 CM H20 , Heated humidifier x 1, Humidifier chamber x 1, Full face mask with cushion x 1, Heated tubing x 1, Headgear x 1, Filters: Disposable x 1pk & Reusable x 1pk, Length of Need: 99 months, Frequency of use: Daily 7 Active tamsulosin (FLOMAX) 0.4 mg 24 hr capsule Take 2 capsules (0.8 mg total) by mouth daily. 60 capsule 3 2 Active clobetasoL (TEMOVATE) 0.05 % ointment APPLY TOPICALLY TO AFFECTED AREA(S) 2 TIMES DAILY. 2 Active vitamin E 450 mg (1,000 Unit) capsule Take 1 capsule (450 mg total) by mouth daily. 30 capsule 11 2 Active alendronate (FOSAMAX) 70 mg tablet Take by mouth over 168 hr. 3 Active calcitonin, salmon, (MIACALCIN) 200 unit/actuation nasal spray Administer into nostril(s). 3 Active cholecalcifero l (VITAMIN D3) 25 mcg (1,000 Unit) capsule Take 25 mcg by mouth daily. 2 Active hydrOXYzine (ATARAX) 25 mg tablet Take by mouth daily. Active potassium chloride (K-TAB) 20 mEq CR tablet Take 20 mEq by mouth daily. 2 Active DULoxetine (CYMBALTA) [address] capsule Take 60 mg by mouth daily. 3 Active DULoxetine (CYMBALTA) [address] capsule Take 30 mg by mouth daily. 3 Active celecoxib (CeleBREX) 200 mg capsule Take 200 mg by mouth daily. Active ibuprofen (MOTRIN) 800 mg tablet Take 800 mg by mouth as needed. Active furosemide (LASIX) 40 mg tablet Take 40 mg by mouth daily. 3 Active oxyCODONE (ROXICODONE) 10 mg IR tablet Take 1 tablet by mouth as needed for pain. 3 Active albuterol 90 mcg/actuation inhaler Inhale 1-2 puffs every 4 (four) hours as needed. 4 Active mirtazapine (REMERON) 30 mg tablet Take 30 mg by mouth at bedtime. 45 mg 3 Active predniSONE (DELTASONE) 20 mg tablet as directed. 4 Active pregabalin (LYRICA) 150 mg capsule Take 150 mg by mouth 2 (two) times a day. 4 Active busPIRone (BuSpar) 15 mg tablet Take 15 mg by mouth 2 (two) times a day. Active polymyxin B-trimethoprim (Polytrim) 10,000 unit- 1 mg/mL ophthalmic solution Administer 1 drop into the left eye 4 (four) times a day. 10 mL 5 Active prednisoLONE acetate (Pred Forte) 1 % ophthalmic suspension Administer 1 drop into the left eye daily. 10 mL 3 5 03/31/20 26 Active prednisoLONE acetate (Pred Forte) 1 % ophthalmic suspension 1 drop 4 (four) times a day. Active ciprofloxacin (CIPRO) 500 mg tablet 3 03/31/20 Discontinu ed(Therapy completed) HYDROcodone-ac etaminophen (NORCO) 10-325 mg per tablet Take by mouth every 3 (three) hours. 03/31/20 Discontinu ed(Therapy completed) mirtazapine (REMERON) 15 mg tablet Take by mouth daily. 3 03/31/20 Discontinu ed(Duplica te order) pregabalin (LYRICA) 75 mg capsule TAKE 1 TO 2 CAPSULE BY MOUTH TWICE DAILY 3 03/31/20 Discontinu ed(Duplica te order) dapsone 25 mg tablet Take 25 mg by mouth once a week. 03/31/20 Discontinu ed(Discont inued by another clinician) tiZANidine (ZANAFLEX) 4 mg tablet Take 4 mg by mouth as needed for muscle spasms. 4 03/31/20 Discontinu ed(Therapy Ineffectiv e) mirabegron (Myrbetriq) 50 mg 24 hr tablet Take 1 tablet (50 mg total) by mouth daily. 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 04/01/2025 8:00 AM CDT Office Visit Department of Ophthalmology in [place], [place] [address] [place] [address] Martell Ramirez M.D. Aphakia Left Eye (Primary Dx); Retained Fragment Cataract Status Post Surgery Left 03/31/2025 11:39 AM CDT Anesthesia Event [facility] [address] [place] [phone] Laly Carrillo 03/31/2025 11:37 AM CDT - 03/31/2025 1:45 PM CDT Surgery [facility] [address] [place] [phone] Martell Ramirez M.D. VITRECTOMY - PARS PLANA 25 GAUGE, LENSECTOMY, SCLERAL SUTURED INTRA OCULAR LENS, LEFT. 03/31/2025 8:31 AM CDT - 03/31/2025 2:00 PM CDT Hospital Encounter [facility] [address] [place] [phone] Martell Ramirez M.D. Discharge Disposition: Home or Self Care 03/18/2025 12:45 PM CDT Office Visit Department of Ophthalmology in [address] [phone] Martell Ramirez M.D. Retained Fragment Cataract Status Post Surgery Left (Primary Dx) 03/12/2025 Documentation Preoperative Evaluation Center in [address] [phone] Michelle Colorado, FEI, C.N.P. 03/11/2025 Orders Only Department of Ophthalmology in [address] [phone] Corky Tracy, C.O.A. Retained Fragment Cataract Status Post Surgery Left (Primary Dx); Subluxation Lens Right; Diabetes Mellitus Type 2 Without Complication (HCC) 03/07/2025 11:45 AM CDT Ancillary Procedure Department of Ophthalmology in [address] [phone] Martell Ramirez M.D. Subluxation Lens Right 03/07/2025 11:00 AM CDT Office Visit Department of Ophthalmology in [address] [phone] Martell Ramirez M.D. Subluxation Lens Right (Primary Dx) 03/07/2025 10:00 AM CDT Ancillary Procedure Department of Ophthalmology in [place], [place] [address] [place] [phone] Matrell Ramirez M.D. Subluxation Lens Right 03/07/2025 9:45 AM CDT Ancillary Procedure Department of Ophthalmology in [address] [phone] Martell Ramirez M.D. Subluxation Lens Right 03/07/2025 12:10 AM CDT Ancillary Procedure Department of Ophthalmology 03/07/2025 12:05 AM CDT Ancillary Procedure Department of Ophthalmology 03/07/2025 Ancillary Procedure Department of Ophthalmology 02/11/2025 Clinical Communication Department of Ophthalmology in [place], [place] [address] [place] [phone] Martell Ramirez M.D. 02/07/2025 8:45 AM CDT Office Visit Department of Ophthalmology in [address] [phone] Martell Ramirez M.D. Subluxation Lens Right (Primary Dx) 01/22/2025 Orders Only Department of Ophthalmology in [address] [phone] Corky Tracy, Christie.OBrit 01/21/2025 8:00 AM CDT Office Visit Department of Ophthalmology in [place], [place] [address] [place] [phone] Kamaljit Castro M.D. Subluxation Lens Right (Primary Dx) 01/21/2025 Clinical Communication Department of Ophthalmology in [place], [place] [address] [place] [phone] Martell Ramirez M.D. 01/20/2025 2:29 PM CDT Anesthesia Event [facility] [address] [place] [phone] Aaron Torre APRN, REPORT MANAGER, DNAP Johny Hernandez M.D. 01/20/2025 2:12 PM CDT - 01/20/2025 3:55 PM CDT Surgery [facility] [address] [place] [phone] Martell Ramirez M.D. VITRECTOMY - PARS PLANA 25 GAUGE, SCLERAL SUTURED INTRA OCULAR LENS RIGHT EYE. 01/20/2025 11:34 AM CDT - 01/20/2025 4:51 PM CDT Hospital Encounter [facility] [address] [place] [phone] Martell Ramirez M.D. Discharge Disposition: Home or Self Care 01/17/2025 11:45 AM CDT Comprehensive Visit Department of Ophthalmology in [address] [phone] Martell Ramirez M.D. Subluxation Lens Right (Primary Dx) 01/17/2025 11:00 AM CDT Ancillary Procedure Department of Ophthalmology in [address] [phone] Martell Ramirez M.D. Retained Fragment Cataract Status Post Surgery Left (Primary Dx); Subluxation Lens Right 01/17/2025 Ancillary Procedure Department of Ophthalmology 01/15/2025 Documentation Preoperative Evaluation Center in [address] [phone] Marisabel Winslow, ALONDRA, P.A.-C. 01/14/2025 Orders Only Department of Ophthalmology in [address] [phone] Corky Tracy CMikelO.Cristian Subluxation Lens Right (Primary Dx) 01/14/2025 Clinical Communication Department of Ophthalmology in [address] [phone] Martell Ramirez M.D. from Last 3 Months Immunizations Immunization Administration Dates Next Due DTaP (Infanrix, Tripedia) [...] oz pur e alcohol) hasn't for months [facility] Utilities Answer Date Recorded In the [...] your living situation today? I have a [facility] place to live 01/20/2025 Education Answer Date Recorded What is the highest level of school you have completed or the highest degree you have received? 12th grade 07/18/2022 Sex and Gender Information Value Date Recorded Sex Assigned at Male 12/18/2017 8:54 AM CDT Legal Sex Male 4:26 AM MANAGER ENTRY Gender Identity Male 12/18/2017 8:54 AM CDT [...] Mass Index 39.14 03/31/2025 9:00 AM CDT Plan of Treatment Upcoming Encounters Date Type Department Care Team (Late st Contact Info) Description 04/10/2025 12:30 PM CDT Ancillary Procedure Department of Ophthalmology in [address] [phone] Martell Ramirez M.D. [address] [place] [phone] 04/10/2025 1:00 PM CDT Office Visit Department of Ophthalmology in [address] [phone] Martell Ramirez M.D. [address] [place] [phone] 05/15/2025 1:00 PM CDT Ancillary Procedure Department of Ophthalmology in [address] [phone] Martell Ramirez M.D. [address] [place] [phone] 05/15/2025 1:30 PM CDT Ancillary Procedure Department of Ophthalmology in [place], [place] [address] [place] [phone] Martell Ramirez M.D. [address] [place] [phone] 05/15/2025 2:15 PM CDT Ancillary Procedure Department of Ophthalmology in [place], [place] [address] [place] [address] Martell Ramirez M.D. [address] [place] [phone] 05/15/2025 2:45 PM CDT Office Visit Department of Ophthalmology in [place], [place] [address] [place] [address] Martell Ramirez M.D. [address] [place] [address] Health Maintenance Due Date Last Done Comments CT Colonography 1957 Cologuard 1957 Depression Monitoring (PHQ-9) 1957 Diabetic Office Visit with Foot Exam 1957 Hepatitis C Screening 1957 Office Visit for Blood Pressure Check / Re-check 1957 Urine Albumin 1957 Pneumococcal vaccine (50+ years) (1 of 2 - PCV) 1976 Zoster Vaccines (1 of 2) 2007 Hepatitis B Vaccines (1 of 3 - Risk 3-dose series) 2017 RSV vaccine - (32-36 weeks) or 60+ years (1 - Risk 60-74 years 1-dose series) 2017 COVID-19 Vaccine (2 - season) 2024 12/09/2020 Depression Monitoring (PHQ-9 for quality tracking) 09/18/2024 Hemoglobin A1C 02/04/2025 08/07/2024, 04/0 12/2023, 01/12/2023, Additional history exists Influenza Vaccine (#1) 2025 Creatinine Level (Kidney Function Test) 12/24/2025 12/24/2024, 12/23/2024, 12/22/2024, Additional history exists Potassium Level 12/24/2025 12/24/2024, 04/0 03/2025, 12/22/2024, Additional history exists Sodium Level 12/24/2025 12/24/2024, 04/0 03/2025, 12/22/2024, Additional history exists Dilated Eye Exam 04/01/2026 04/01/2025, , 03/07/2025, Additional history exists Colonoscopy 03/28/2027 03/28/2022, 03/17/2008 Colorectal Cancer Surveillance 03/28/2027 Lipid (Cholesterol) Screening 03/01/2029 03/01/2024, 02/27/2023, 03/01/2021, Additional history exists DTaP,Tdap,and Td Vaccines (4 - Td or Tdap) 10/03/2033 10/03/2023, 05/13/2013, 12/23/2002 Abdominal Aortic Aneurysm (AAA) Screen Completed 11/21/2024, 11/21/2024, 07/31/2024, Additional history exists Fall Risk Screen (Annual) Completed 01/20/2025 HPV Vaccines Aged Out No longer eligi ble based on patient's age to complete this topic IPV Vaccines Aged Out No longer eligi ble based on patient's age to complete this topic Goals Goal Patient Goal Type Associated Problems Recent Progress Patient-Stated? Author Autogenerat ed Goal Care Plan Autogenerated Problem No Corky Tracy, C.O.A. Medical Devices Implanted Type Area Commercial Insulator Device Identifier Shelf Expiration Date Model / Serial / Lot Knee Implant Knee Implant Right: Knee Lens Env [id number] Bicnvx +16.0d - [id number] - [id number] Implanted:Qty: 1 on 01/20/2025 by Kamaljit Castro M.D. at [facility] Ocular Lens Right: Eye [employer] [employer] 12/16/2026 [id number] / [id number] / [id number] Lens Env [id number] Bicnvx +16.5d - [id number] - [id number] Implanted:Qty: 1 on 03/31/2025 by Martell Ramirez M.D. at [facility] Ocular Lens [facility] [employer] [employer] 12/16/2026 [id number] / [id number] / [id number] Axonics Bladder Stimulator 4101-02/22/2023 Implanted:Qty: 1 on 02/22/2023 by Leatha Arora D.O. at [facility] Sacral Nerve Stimulator N/A: Pelvis Axonics Modulation [employer] 11/18/2023 4101 / [id number] / Description:Axonics Sacral S timulator Model# 4101 with lead Model# 1201 MRI conditional at 1.5T. Physicist coverage may be needed. Patient must bring remote to MRI appointment. See tread tuber machine operator scanning guidelines. Kristian Ray 12/25/23 [email or web address] Axonics Lead 1201 Implanted:Qty: 1 on 02/22/2023 by Leatha Arora D.O. at [facility] Stimulator Other N/A: Pelvis [employer]on[employer] [id number] 07/28/2025 1201 / [id number] / Description:Axonics Sacral S timulator Model# 4101 with lead Model# 1201 MRI conditional at 1.5T. Physicist coverage may be needed. Patient must bring remote to MRI appointment. See tread tuber machine operator scanning guidelines. Kristian Ray 12/25/23 [email or web address] 1201 reference number Explanted Type Area Commercial Insulator Device Identifier Shelf Expiration Date Model / Serial / Lot Axonics Trial Implanted:Qt y: 1 on 02/09/2023 by Leatha Arora D.O. at [facility] Explanted: (Quantity not on file) Stimulator Other N/A: Sacrum Axonics Modulation [employer] [id number] 08/29/2025 1901 / / [id number] Axonics Trial Implanted:Qt y: 1 on 02/09/2023 by Leatha Arora D.O. at [facility] Explanted: (Quantity not on file) Stimulator Other N/A: Sacrum Axonics [employer] [id number] 04/17/2025 1701 / / [id number] Procedures Procedure Name Priority Date/Time Associated Diagnosis Comments GLUCOSE POCT, B Routine 03/31/2025 12:12 PM CDT VITRECTOMY - PARS PLANA 25 GAUGE 03/31/2025 11:35 AM CDT Retained Fragment Cataract Status Post Surgery Left Case Notes @ [facility] 8:35, tpu 11 OPHTHALMOLOGY OFFICE VISIT (CLINIC) Routine 03/18/2025 2:00 PM CDT OPTICAL COHERENCE TOMOGRAPHY - MACULA/RETINA - OU - BOTH EYES Routine 03/07/2025 11:00 AM CDT Subluxation Lens Right ULTRASOUND BIOMICROSCOPY - OD - RIGHT Routine 03/07/2025 9:48 AM CDT Subluxation Lens Right SCHEIMPFLUG TOMOGRAPHY (PENTACAM) - OU - BOTH EYES Routine 03/07/2025 9:13 AM CDT Subluxation Lens Right OPHTHALMOLOGY IMAGE EXAM Routine 03/07/2025 12:10 AM CDT OPHTHALMOLOGY IMAGE EXAM Routine 03/07/2025 12:05 AM CDT OPHTHALMOLOGY IMAGE EXAM Routine 03/07/2025 12:00 AM CDT VITRECTOMY - PARS PLANA 25 GAUGE 01/20/2025 2:20 PM CDT Aphakia Right Eye Vitreous Prolapse Right Eye Case Notes [facility] 1139, tpu 10 OPTICAL COHERENCE TOMOGRAPHY - MACULA/RETINA - OU - BOTH EYES Routine 01/17/2025 10:38 AM CDT Subluxation Lens Right Retained Fragment Cataract Status Post Surgery Left OPHTHALMOLOGY IMAGE EXAM Routine 01/17/2025 12:00 AM CDT HEMOGLOBIN A1C, B Routine 08/07/2024 1:0 6 PM MANAGER ENTRY Primary Malignant Neoplasm Of Prostate (HCC) CREATININE WITH EGFR, S/P Routine 08/07/2024 12:53 PM MANAGER ENTRY Defect Ureteral Filling LIPID PANEL, S Routine 04/07/2014 3:16 PM CDT COMPREHENSIVE METABOLIC PANEL, S/P Routine 04/07/2014 3:16 PM CDT from Last 3 Months or Most Recently Relevant to Health Maintenance Results * Glucose, POCT (03/31/2025 12:12 PM CDT) Glucose, POCT, B 75 70 - 140 mg/dL 03/31/2025 12:17 PM CDT PCSM Site Capillary 03/31/2025 12:17 PM CDT PCSM Blood 03/31/2025 12:1 2 PM CDT 03/31/2025 12:18 PM CDT Unknown Provider LAB POCT ORDERABLES-MANUAL Ingrid l Result Performing Organization Address [facility]/ZIP Co de Phone Number POC [facility] [address] [place] [address], [facility] PCSM [facility] [place] POC [address] [place] [address] * Ophthalmology office visit (clinic): Self; General (03/18/2025 2:00 PM CDT) Martell Ramirez M.D. OUTPATIENT RETURN VISITS Fi nal Result * Optical Coherence Tomography - Macula/Retina - OU - Both Eyes (03/07/2025 11:00 AM CDT) Narrative OPHTHALMOLOGY IMAGING EXAM - 03/07/2025 11:00 AM CDT Attached OU Martell Ramirez M.D. OPHTH TOMOGRAPHY Final Resu lt Performing Organization Address [facility]/ZIP Co de Phone Number OPHTHALMOLOGY IMAGING EXAM * Ultrasound Biomicroscopy (UBM) - OD - Right Eye (03/07/2025 9:48 AM CDT) Narrative OPHTHALMOLGY NON-IMAGING ORDERS - 03/07/2025 11:00 AM CDT 03/07/2025 UBM Right Eye: MRS protocol done. ZBK Martell Ramirez M.D. OPHTH ULTRASOUND Final Resu lt Performing Organization Address [facility]/ZIP Co de Phone Number OPHTHALMOLGY NON-IMAGING ORDERS * Scheimpflug Tomography (Pentacam) - OU - Both Eyes (03/07/2025 9:13 AM CDT) Narrative OPHTHALMOLOGY IMAGING EXAM - 03/07/2025 11:01 AM CDT Minimal astigmatism OU Martell Ramirez M.D. OPHTH OTHER Final Resul t Performing Organization Address [facility] de Phone Number OPHTHALMOLOGY IMAGING EXAM * Eyes Spectralis OCT-Ophthalmology Image Exam (03/07/2025 12:10 AM CDT) Only the most recent of4 resultswithin the time period is included. Narrative IIMS - 03/07/2025 10:20 AM CDT This order has been created and auto-finalized to support the import of images acquired without order. The clinical documentation to support these images can be found on the encounter that produced images. us Provider Not In System IMG NON RAD IMAGING PROCE DURES Final Result Performing Organization Address [facility] de Phone Number IIMS NA * Optical Coherence Tomography - Macula/Retina - OU - Both Eyes (01/17/2025 10:38 AM CDT) Narrative OPHTHALMOLOGY IMAGING EXAM - 01/17/2025 11:08 AM CDT Right Eye Reliability was good. OCT device used was Spectralis . Left Eye Reliability was good. OCT device used was Spectralis . Notes The interpretation report for this test can be found in the Testing section of the chart note dated 01/17/2025 Martell QUINONES TOMOGRAPHY Edited Res ult - Final Performing Organization Address [facility] de Phone Number OPHTHALMOLOGY IMAGING EXAM * Hemoglobin A1c (08/07/2024 1:06 PM MANAGER ENTRY) Hemoglobin A1c, B 4.1 4.0 - 5.6 % 08/07/2024 2:50 PM MANAGER ENTRY DTL Blood (Blood, Venous) 08/07/2024 1:06 PM MANAGER ENTRY 08/07/2024 1:42 PM MANAGER ENTRY Janice Salmon APRN, C.N.P., M.S.N. LAB BLOOD A DD-ON Final Result Performing Organization Address [facility] Co de Phone Number [facility] [address] [place] [address], [facility] [address] [place] [address] * Creatinine with Estimated GFR (08/07/2024 12:53 PM MANAGER ENTRY) Creatinine 1.26 0.74 - 1.35 mg/dL 08/07/2024 2:03 PM MANAGER ENTRY DTL Estimated GFR (eGFR) 63 >=60 mL/min/BSA 08/07/2024 2:03 PM MANAGER ENTRY DTL Comment: Estimated GFR calculated using the 2020 CKD_EPI creatinine equation. Blood (Blood, Venous) 08/07/2024 12:53 PM MANAGER ENTRY 08/07/2024 1:42 PM MANAGER ENTRY Shara Aldrich APRN, C.N.P., D.N.P. LAB BLOOD ADD-ON Final Result Performing Organization Address [facility] Co de Phone Number [facility] [address] [place] [address], [facility] [address] [place] [address] * (ABNORMAL) Lipid Panel (04/07/2014 3:16 PM CDT) Cholesterol, Total 173 0 - 200 MGDL POWERCHART HX HDL 42.0 40.0 - 60.0 MGDL POWERCHART Triglycerides 214(H) 0 - 150 MGDL POWERCHART Calculated LDL 88 0 - 100 MGDL POWERCHART Blood 04/07/2014 3:16 PM CDT Kush De La Vega M.D. LAB BLOOD ADD-ON Final Result Performing Organization Address [facility] Co de Phone Number POWERCHART * (ABNORMAL) CMP (Comprehensive Metabolic Panel) (04/07/2014 3:16 PM CDT) BUN (Blood Urea Nitrogen), S 11 7 - 23 MGDL POWERCHART Creatinine 0.8(L) 0.9 - 1.4 MGDL POWERCHART Glucose 103 POWERCHART Potassium, S 4.3 3.5 - 4.8 MMOLL POWERCHART Sodium, S 144 135 - 145 MMOLL POWERCHART Chloride, S 105 100 - 108 MMOLL POWERCHART CO2 Total 27 22 - 30 MMOLL POWERCHART Calcium, Total, S 9.2 8.5 - 10.5 MGDL POWERCHART Albumin, S 4.0 3.5 - 5.0 GMDL POWERCHART Alkaline Phosphatase, S 99 45 - 115 UNITL POWERCHART Aspartate Aminotransferase (AST), S 31 8 - 48 UNITL POWERCHART Alanine Amniotransferase, LD 51 21 - 72 UNITL POWERCHART Bilirubin, Total, S 0.5 0.1 - 1.0 MGDL POWERCHART Total Protein, S 6.8 6.3 - 8.2 MGDL POWERCHART HXeGFR (MDRD) >60 MLMIN POWERCHART eGFR Black/ >60 MLMIN POWERCHART Blood 04/07/2014 3:16 PM CDT Kush De La Vega M.D. LAB BLOOD ADD-ON Final Result POWERCHART from Last 3 Months or Most Recently Relevant to Health Maintenance Additional Health Concerns Active Problems Noted Date Diagnosed Date Autogenerated Problem 03/31/2025 Insurance MEDICARE [facility] Advance Directives For more information, please contact: [phone] * Full Code (Latest Code Status on File) Date Activated Date Inactivated Comments 02/09/2023 6:53 AM 02/09/2023 2:09 PM Question Answer Comments Full Code: Discussed Care Teams Special Events Driver Relationship Specialty Start Date End Date Elsewhere, Pcp PCP - General Internal Medicine 01/17/23
--- OUTSIDE RECORDS SUMMARY | 2025-04-08 14:01 | XMS_ITS | Encounter Summary ---
Author Organization [facility] Address [address] [place] [address] Care Team Providers Care Disability Liaison Officer Name Role Phone Mary Ruggiero PA-C Primary Care Provider [phone] Tanya Andrews APRN NATIONAL SALES ASSOCIATE Unavailable [phone] Deep Pires MD Unavailable [phone] Reason for Visit * Reason Comments Medication Refill Encounter Details Date Type Department Care Team (Late st Contact Info) Description 05/29/2024 Refill [facility] [address] [id number] Robyn Keys, FEI NATIONAL SALES ASSOCIATE [address] [place] [address] Medication Refill Social History Tobacco Use Types [...] on file 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 Source: [facility]. 06/25/2024 documented as of this encounter Care Teams Disability Liaison Officer Relationship Specialty Start Date End Date Mary Ruggiero PA-C [address] [place] [address] PCP - General 01/16/24 Tanya Andrews APRN NATIONAL SALES ASSOCIATE [address] [facility] [address] [place] [address] Nurse Practitioner Urology 03/22/24 Deep Pires MD [address] [facility] [address] [place] [address] Assigned Surgical Provider 05/10/24 documented as of this encounter
[2025-04-08 14:02] VITALS: BP 122/70; PULSE 93; RESP 16; TEMP 36.4; O2SAT 95; BMI 39.7
--- OUTSIDE RECORDS SUMMARY | 2025-04-08 14:02 | XMS_ITS | Patient Health Record ---
Author Organization [facility] Address [address] [place] [address] [address] [place] [address] Care Team Providers Care Field Organizer Name Role Phone Mary Ruggiero Primary Care Provider UnavailNegro Moya Unavailable [phone] Jean Marie Deluca PA-C Unavailable Unavailable Johny Serrato Unavailable [phone] Armin Seaman Unavailable [phone] Praveen Pedersen Unavailable [phone] Allergies Allergen (clinical drug ingredient) Drug/Non Drug Allergy documented on EMR Reaction Allergy Type Onset Date Status metformin Metformin Unknown Drug Allergy Active Reason For Referral No Information Medications Medication SIG (Take, Route, Frequency, Duration) Notes Start Date End Date Status oxyCODONE HCl 10 MG 1 tablet as needed Orally TID Active Venlafaxine HCl ER 150 MG Oral; Duration: 90 Days Active Potassium Chloride ER 20 MEQ Oral; Duration: 90 Days Active Pregabalin 150 MG 1 capsule Oral Twice a day; Duration: 30 days 01/03/2023 Active Calcitonin ([place]) 200 UNIT/ACT Nasal; Duration: 30 Days Act viridiana Zolpidem Tartrate 10 MG Oral; Duration: 30 Days Active Tamsulosin HCl 0.4 MG Oral; Duration: 90 Days Active hydrOXYzine HCl 25 MG Oral; Duration: [...] 70 MG Oral; Duration: 84 Days Active Social History Tobacco Use: Social History Observation Description Date Details (start date - stop date) Former Smoker NA - NA Tobacco Use/Smoking: Question Answer Notes Are you a former smoker Alcohol Screen Question Answer Notes Did you have a drink containing alcohol in the p ast year? No Points 0 Interpretation Negative AUDIT-C (Standard) Question Answer Notes Did you have a drink containing alcohol in the p ast year? No Points 0 Interpretation Negative Problems Problem Type SNOMED Code ICD Code Onset Dates Problem Status W/U Status Risk Notes Problem Opioid dependence (44257294) Opioid dependence, uncomplicated (F11.20) Active confirmed Problem Chronic pain (81552719) Other chronic pain (G89.29) Active confirmed Problem Lumbosacral spondylosis without myelopathy (92054609) Spondylosis without myelopathy or radiculopathy, lumbosacral region (M47.817) Active confirmed Problem Muscle wasting disorder (02606141) Muscle wasting and atrophy, not elsewhere classified, multiple sites (M62.59) Active confirmed Problem Somatic dysfunction of lumbar region (577946133) Segmental and somatic dysfunction of lumbar region (M99.03) Active confirmed Problem Somatic dysfunction of sacral region (075522411) Segmental and somatic dysfunction of sacral region (M99.04) Active confirmed Problem Abnormal gait (61963920) Unsteadiness on feet (R26.81) Active confirmed Problem Low back pain (416545879) Low back pain, unspecified (M54.50) Active confirmed Problem Artificial knee joint present (508939473556) Knee joint replacement status (Z96.659) Active confirmed Problem Sacroiliitis (32595432) Sacroiliitis (M46.1) Active confirmed Vital Signs Blood pressure diastolic 74 mm Hg 03/25/2025 Height 72 in 03/25/2025 Blood pressure systolic 128 mm Hg 03/25/2025 Weight 264 lbs 03/25/2025 BMI 35.8 kg/m2 03/25/2025 Procedures Procedure Date Ordered Date Performed Result Body Sit e Intervention: 12/12/2024 12/19/2024 sched 01/02 Encounters Encounter Location Date Provider Diagnosis [facility] [address] [address] 12/12/2024 Armin Seaman Spondylosis without myelopathy or radiculopathy, lumbosacral region M47.817 ; Low back pain, unspecified M54.50 and Other chronic pain G89.29 [address] [facility] [address] [place] [address] 01/02/2025 Johny Serrato Spondylosis without myelopathy or radiculopathy, lumbosacral region M47.817 [address] [facility] [address] [place] [address] 03/25/2025 Praveen Pedersen Low back pain, unspecified M54.50 ; Spondylosis without myelopathy or radiculopathy, lumbosacral region M47.817 and Other chronic pain G89.29 [facility] [address] [place] [address] [address] [place] [address] 01/01/2025 Negro Lawson [facility] [address] [place] [address] [address] [place] [address] 01/07/2025 Negro Lawson [facility] [address] [place] [address] [address] [place] [address] 03/24/2025 Negro Lawson Assessments Encounter Date Diagnosis (ICD Code) Assessment Notes Treatment Notes Treatment Clinical Notes Section Notes 12/12/2024 Spondylosis without myelopathy or radiculopathy, lumbosacral region (ICD-10 - M47.817) 12/12/2024 Low back pain, unspecified (ICD-10 - M54.50) 01/02/2025 Spondylosis without myelopathy or radiculopathy, lumbosacral region (ICD-10 - M47.817) 03/25/2025 Spondylosis without myelopathy or radiculopathy, lumbosacral region (ICD-10 - M47.817) 03/25/2025 Low back pain, unspecified (ICD-10 - M54.50) 03/25/2025 Other chronic pain (ICD-10 - G89.29) Osvaldo returns to clinic today for a follow-up evaluation regarding his chronic low back pain. I have reviewed the [facility] database and did not find any [...] have sent an order to [facility] in [place] for further evaluation of his symptoms. Regarding [...] call with any questions, problems or concerns. 12/12/2024 Other chronic pain (ICD-10 - G89.29) Osvaldo returns to clinic today for a follow up evaluation regarding his chronic pain. We discussed his current symptoms as well as his most recent procedure. Given his relief and functional improvement, I believe he is a good candidate for repeat RFA. This treatment plan was reviewed with Osvaldo, and he was agreeable. I will continue to monitor his progress and he will follow up as needed. Plan: 1. Order repeat bilateral L4-S1 RFA 2. Follow up as needed Discharge instructions reviewed verbally. The patient was instructed to call with any questions, problems or concerns. 12/12/2024 Other Letitia, Maurilio Izaguirre , am serving as a scribe to document services personally performed by Armin Seaman PA-C, based upon my observations and the providers statements to me. All documentation has been reviewed by the aforementioned HCIP as well as Johny Serrato MD, prior to being entered into the official medical record. I, Johny Serrato MD attest that the above named individual is acting in scribe capacity, has observed Armin Howard performance of the services and has documented them in accordance with her direction. The documentation recorded by the scribe accurately reflects the service Armin Seaman PA-C and Johny Serrato MD personally performed and the decisions made by them. 03/25/2025 Other I, Tara Monster , am serving as a scribe to [...] decisions made by them. Plan Of Treatment Pending Test Test Name Order Date MRI : Lumbar 03/25/2025 Next Appt Details Provider Name:Praveen Pedersen, Sherlyn 04/15/2025 08:30:00 AM, [address], [address], [place], [address], Insurance Providers Payer Name Payer Address Payer Phone Subscriber Number Group Number Insured Name Patient Relationship to Insured Coverage Start Date Coverage End Date [facility] [employer] [address] [address] [place] [address] [id number] Osvaldo Zuniga Self - patient is the insured 2 Medicare Part B [employer] [address] [facility] [place] [address] [id number] Osvaldo Zuniga Self - patient is the insured 2 Medical (General) History Medical History History ICD Code Anxiety Prostate cancer Depression Hypertension Hyperlipidemia Sleep apnea Prediabetes Surgical History Surgery Date(Month/Year) Right TKA replacement 09/2024 Bladder Stimulator Implant 02/2023 Right TKA and revision 2019 Hospitalization History Reason Date(Month/Year) Elevated ammonia levels Staph infection x2 Surgical reasons
--- OUTSIDE RECORDS SUMMARY | 2025-04-08 14:02 | XMS_ITS | Clinical Summary ---
Author Organization [facility] Address [address] [place] [address] Phone Care Team Providers Care In House Counsel Name Role Phone Unavailable Primary Care Provider Unavailabl e Allergies Active Allergy Reactions Criticality Noted Date Comments Metformin Diarrhea,Unknown,nan sea ,Other (see comments) Medium 06/22/2018 Severe diarrhea with XR formulation Medications acetaminophen (TYLENOL) 325 MG tablet Take 975 mg by mouth every 8 hours 4 Active albuterol HFA (PROVENTIL HFA) 108 (90 Base) MCG/ACT inhaler Inhale 1-2 puffs every 30 minutes as needed 4 Active alendronate (FOSAMAX) 70 MG tablet Take 70 mg by mouth 3 Active atorvastatin (LIPITOR) 10 MG tablet Take 1 tablet by mouth 1 (one) time each day Active betamethasone dipropionate 0.05 % cream Active buPROPion XL (WELLBUTRIN XL) 150 MG 24 hr tablet Take 1 tablet by mouth 1 (one) time each day in the morning Active busPIRone (BUSPAR) 10 MG tablet TAKE ONE TABLET BY MOUTH 2 TO 3 TIMES DAILY Active Calcitonin, [place], 200 UNIT/ACT solution Administer 1 spray into affected nostril(s) in the morning. 4 Active cefadroxil (DURICEF) 500 MG capsule Take 1 capsule by mouth in the morning and 1 capsule before bedtime. Active celecoxib (CeleBREX) 200 MG capsule TAKE ONE CAPSULE BY MOUTH TWO TIMES A DAY WITH MEALS 3 Active cholecalciferol (D 1000) 25 MCG (1000 UT) capsule Take 1,000 Units by mouth in the morning. 2 Active clobetasol (TEMOVATE) 0.05 % ointment Apply topically 2 times daily Active clopidogrel (PLAVIX) 75 MG tablet Take 1 tablet (75mg) by mouth once daily, start taking Monday01/05/2024 4 Active dapsone 25 MG tablet Take 25 mg by mouth every 7 (seven) days Active DULoxetine (CYMBALTA) [address] capsule Take 120 mg by mouth in the morning. 4 Active Eszopiclone 2 MG tablet Active famotidine (PEPCID) 10 MG tablet Take 10 mg by mouth Active ferrous sulfate 325 (65 Fe) MG EC tablet Take 325 mg by mouth in the morning. 4 Active gabapentin (NEURONTIN) 300 MG capsule Active gentamicin (GARAMYCIN) 40 MG/ML injection Take 160 mg by injection route. 1 Active hydrOXYzine (ATARAX) 25 MG tablet Take 50 mg by mouth Active ibuprofen (ADVIL) 800 MG tablet Active leuprolide (Eligard) 45 MG injection Inject 1 syringe by subcutaneous route. 1 Active levoFLOXacin (LEVAQUIN) 500 MG tablet TAKE 1 TABLET EVERY 24 HOURS BY ORAL ROUTE. Active lisinopril (PRINIVIL) 20 MG tablet Take 20 mg by mouth in the morning. 4 Active lisinopril-hydro CHLOROthiazide (PRINZIDE) 20-12.5 MG per tablet Take 1 tablet by mouth 1 (one) time each day Active methylphenidate (RITALIN) 5 MG tablet Take 1 tablet by mouth in the morning and 1 tablet before bedtime. Active mirtazapine (REMERON) 15 MG tablet Take 15 mg by mouth in the morning. 3 Active multivitamin-iro n-minerals (THERA) tablet Take 1 tablet by mouth in the morning. Active nortriptyline (PAMELOR) 25 MG capsule Take 1 capsule by mouth every night Active oxyCODONE (ROXICODONE) 5 MG immediate release tablet Take 5-10 mg by mouth 4 Active predniSONE (DELTASONE) 20 MG tablet Active pregabalin (LYRICA) 75 MG capsule TAKE 1 CAPSULE AT BEDTIME X 1 WEEK THEN INCREASE TO 1 CAPSULE TWO TIMES A DAY THEREAFTER Active rifAMPin (RIFADIN) 300 MG capsule Active tamsulosin (FLOMAX) 0.4 MG 24 hr capsule Take 0.8 mg by mouth in the morning. 4 Active tiZANidine (ZANAFLEX) 4 MG tablet Take 4 mg by mouth 4 Active topiramate (TOPAMAX) 25 MG tablet TAKE 1 TABLET BY MOUTH AT BEDTIME X 14 NIGHTS THEN INCREASE TO 2 TAB AT BEDTIME X 14 NIGHTS THEN 3 TABS AT BEDTIME THEREAFTER Active traZODone (DESYREL) 50 MG tablet Active triamcinolone (KENALOG) 0.1 % ointment APPLY TO AFFECTED AREAS TWO TIMES A DAY Active venlafaxine XR (EFFEXOR-XR) 75 MG 24 hr capsule TAKE 1 CAPSULE BY MOUTH ONCE A DAY WITH A MEAL. TOTAL DOSE 225MG Active Vitamin E 450 MG (1000 UT) capsule Take 1,000 Units by mouth in the morning. Active zolpidem (AMBIEN) 10 MG tablet TAKE 1 TABLET BY MOUTH AT BEDTIME IF NEEDED FOR SLEEP 4 Active Active Problems Problem Noted Date Diagnosed Date Acute urinary tract infection 02/19/2024 Chronic diarrhea 02/19/2024 Current drinker 02/19/2024 Hematuria 02/19/2024 Ureter filling defect 01/29/2024 Acute posthemorrhagic anemia 01/23/2024 Atopic neurodermatitis 01/23/2024 Encounter for other orthopedic aftercare 024 Fluid overload 01/23/2024 Gastro-esophageal reflux disease without esophag itis 01/23/2024 Generalized muscle weakness 01/23/2024 Hydronephrosis 01/23/2024 Lymphedema, not elsewhere classified 01/23/2024 Methicillin susceptible Stap hylococcus aureus infection as the cause of diseases classified elsewhere 01/23/2024 Need for assistance with personal care 4 Nonruptured cerebral aneurysm 01/23/2024 Other fatigue 01/23/2024 Personal history of malignant neoplasm of prosta te 01/23/2024 Repeated falls 01/23/2024 Retention of urine 01/23/2024 Staphylococcal arthritis of right knee 4 Alcohol abuse 10/04/2023 Recurrent major depressive episodes, moderate Chronic insomnia 09/19/2023 Urgent desire to urinate 12/28/2022 Urge incontinence of urine 10/31/2022 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 Rectal hemorrhage 08/15/2022 Pain of knee region 12/29/2021 Thrombocytopenia 11/07/2021 Malignant neoplasm of prostate 07/04/2021 Prediabetes 07/04/2021 Prostate specific antigen above reference range 07/04/2021 Vitamin D deficiency 04/02/2021 Body mass index (BMI) 40.0-44.9, adult Infective arthritis 12/17/2020 Restless legs 10/13/2020 Presence of right artificial knee joint 09/08/20 Polyp of colon 12/17/2018 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 07/19/2018 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 Diastasis of muscle 04/26/2018 Noninfectious colitis 04/26/2018 Bilateral osteoarthritis of knees 02/06/2018 Type 2 diabetes mellitus without complication Umbilical hernia without obstruction or gangrene 07/07/2017 Peripheral venous insufficiency 02/21/2017 Obstructive sleep apnea syndrome 01/05/2017 Benign localized hyperplasia of prostate 016 Family history of malignant neoplasm of prostate 11/16/2015 Hyperlipidemia 07/01/2015 Essential hypertension 06/23/2015 Depressive disorder 06/23/2015 Morbid obesity 06/23/2015 Mild major depression, single episode 12/29/2011 Overview (02/19/2024): Mild major depression, single episode Mild major depression, single episode Immunizations Immunization Administration Dates Next Due DTaP 12/23/2002 Tdap 10/03/2023,05/13/2013 Social History Tobacco Use Types Packs/Day Years Used Date Smoking Tobacco: Never Assessed Sex and Gender Information Value Date Recorded Sex Assigned at Not on file Legal Sex Male 7:38 AM MDT Gender Identity Not on file Sexual Orientation Not on file Plan of Treatment Health Maintenance Due Date Last Done Comments Diabetic Foot Exam 1967 Ophthalmology Exam 1967 Pneumococcal PPSV23/PCV13 65 + Years / High and Highest Risk (1 of 5 - PCV) 1976 COVID-19 Vaccine (2 - Pfizer risk series) 12/30/2020 12/09/2020 Influenza Vaccine (#1) 2025 Insurance PM INTERFACED INSURANCE PM INTERFACED INSURANCE
--- OUTSIDE RECORDS SUMMARY | 2025-04-08 14:02 | XMS_ITS | Data Portability ---
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 Plan of Treatment Reminders Order Date Submit Date Provider Last Modified By Organization Details Last Modified Time Details Appointments None recorded. Lab urinalysis, dipstick 2020 [facility], [address], [address], [place], [address], 14:15:48 culture, urine 2020 [facility], [address], [address], [place], [address], 11:45:39 Referral radiation oncologist referral - see in [facility]. Please contact patient to schedule. 2020 021 [facility], [address], [place], [address], 09:30:23 Procedures None recorded. Surgeries None recorded. Imaging None recorded. Medication Orders nitrofurant oin macrocrysta l 100 mg capsule 2024 025 [facility], [place], [place], [address] [facility], [place], [address], 5 12:50:45 Eligard 45 mg (6 month) subcutaneou s syringe 2020 [email or web address] Not available 4 11:43:56 Eligard 45 mg (6 month) subcutaneou s syringe 2020 [email or web address] Not available 4 11:43:56 gentamicin 40 mg/mL injection solution 2020 [email or web address] Not available 5 12:28:11 Patient TargetsNo targets recorded. Patient Instructions Encounter Date Encounter Id Patient Instructions Last Modified By Organization Details Last Modified Time 07/05/2021 [id number] will do Eligard today and then refer to [facility] btareen Not available 07/05/2021 13:17:22 05/02/2024 [id number] 45 minutes spent with patient and reviewing chart [email or web address] Not available 05/02/2024 13:24:38 Reason for Referral see [facility] Please contact patient to schedule. Referring Physician: Alexandria Segovia, Urology, Encounter Date: 07/05/2021 Results Created Date Observation Date Name Description Value Unit Range Abnormal Flag Note LastModifiedBy Organization Detail LastModifiedTime 08/30/2008/30/2021 UA DIP CS ADVAN TUS color -advantus YELLOW yellow Not Available [facility] [address] [facility] [address], [place], [address], 08/30/2021 14:15:48 08/30/2008/30/2021 UA DIP CS ADVAN TUS appearance -advantus CLEAR clear Not Available [facility] [address], [place], [address], 08/30/2021 14:15:48 08/30/2008/30/2021 UA DIP CS ADVAN TUS glucose -advantus NEGATI VE mg/dL negati ve Not Available [facility] [address] [facility] [address], [place], [address], 08/30/2021 14:15:48 08/30/20 21 08/30/2021 UA DIP CS ADVAN TUS bilirubin -advantus NEGATI VE negati ve Not Available [facility] [address] [facility] [address], [place], [address], 08/30/2021 14:15:48 08/30/20 21 08/30/2021 UA DIP CS ADVAN TUS ketones -advantus NEGATI VE mg/dL negati ve Not Available [facility] [address] [place] [address] [address], [place], [address], 08/30/2021 14:15:48 08/30/20 21 08/30/2021 UA DIP CS ADVAN TUS sp. gravity -advantus 1.025 1.010- 1.025 Not Available [facility] [address] [place] [address] [address], [place], [address], 08/30/2021 14:15:48 08/30/20 21 08/30/2021 UA DIP CS ADVAN TUS pH -advantus 6.0 5.0-8. 0 Not Available [facility] [address] [place] [address] [address], [place], [address], 08/30/2021 14:15:48 08/30/20 21 08/30/2021 UA DIP CS ADVAN TUS protein -advantus NEGATI VE mg/dL negati ve Not Available [facility] [address] [place] [address] [address], [place], [address], 08/30/2021 14:15:48 08/30/20 21 08/30/2021 UA DIP CS ADVAN TUS urobilinogen -advantus 0.2 normal Not Available [facility] [address] [place] [address] [address], [place], [address], 08/30/2021 14:15:48 08/30/20 21 08/30/2021 UA DIP CS ADVAN TUS nitrites -advantus NEGATI VE negati ve Not Available [facility] [address] [place] [address] [address], [place], [address], 08/30/2021 14:15:48 08/30/20 21 08/30/2021 UA DIP CS ADVAN TUS blood -advantus MODERA TE negati ve abnormal Not Available [facility] [address] [facility] [address], [place], [address], 08/30/2021 14:15:48 08/30/20 21 08/30/2021 UA DIP CS ADVAN TUS leukocytes -advantus NEGATI VE negati ve Not Available [facility] [address] [facility] [address], [place], [address], 08/30/2021 14:15:48 08/30/20 21 08/30/2021 UA DIP CS ADVAN TUS performed by Leonie Hunt Not Available [facility] [address] [facility] [address], [place], [address], 08/30/2021 14:15:48 08/30/20 21 08/30/2021 UA DIP CS ADVAN TUS total urine volume (mL) 80 /mL ----- ----- ----- ----- ----- ----- ----- ----- ----- ----- ----- ----- ----- ----- ---- *Raghu mendoza note the follo wing minim um quant ities for addit ional urine testi ng: - Atypi cals: 3 mL - Cytol ogy: 20 mL - GC/CH : 2 mL - FISH: 30 mL - Atypi cals w/ GC/CH : 5 mL - Cytol ogy PLUS FISH: 50 mL - Urine Cultu re: 3 mL ----- ----- ----- ----- ----- ----- ----- ----- ----- ----- ----- ----- ----- ----- ---- Not Available [facility] [address] [facility] [address], [place], [address], 08/30/2021 14:15:48 08/30/20 21 08/30/2021 UA MICRO SCOPI C U-WBC 0 - 2 [hpf] 0 - 2 Not Available [facility] [address] [facility] [address], [place], [address], 08/30/2021 14:15:51 08/30/20 21 08/30/2021 UA MICRO SCOPI C U-RBC 2 - 5 [hpf] 0 - 2 abnormal Not Available [facility] [address] [facility] [address], [place], [address], 08/30/2021 14:15:51 08/30/20 21 08/30/2021 UA MICRO SCOPI C bacteria Small [hpf] negati ve abnormal Not Available [facility] [address] [place] [address] [address], [place], [address], 08/30/2021 14:15:51 08/30/20 21 08/30/2021 UA MICRO SCOPI C squamous epi Negati ve /lpf negati ve,sma ll Not Available [facility] [address] [facility] [address], [place], [address], 08/30/2021 14:15:51 08/30/20 21 08/30/2021 URINE CULTU RE final report Microb iology result s SOURC E Void KNOWN ALLER GIES see list TREAT MENT see list MEDIA PLATE D AT: Media plate d on 08/30 @ 1:09 PM RESUL T No Growt h Not Available [facility] [address] [facility] [address], [place], [address], 09/01/2021 11:45:39 06/01/20 21 06/01/2021 MRI, prost ate, w/wo contr ast No observ ation record ed. [email or web address] [facility] [address] [facility] [address], [place], [address], 06/03/2021 13:57:06 08/24/20 21 06/21/2021 US, prost ate No observ ation record ed. [email or web address] Not Available 2020 11:02:19 01/07/20 25 12/21/2024 CT, urogr am No observ ation record ed. [email or web address] Not Available 2024 12:26:50 Result Notes None recorded. Problems Name Problem SNOMED Code Status Onset Date Resolution Date Notes Provider Name and Address Organization Details Recorded Time Prediabetes 868368331 Active 2020 Bernice delgado [facility] 12:54:33 Prostate specific antigen above reference range 751151237 Active 2020 Bernice delgado [facility] 12:54:41 Malignant neoplasm of prostate 054487888 Active 2020 Bernice delgado [facility] 12:54:47 Problem Notes None recorded. Procedures Surgical History Date Name Laterality Status Provider Name and Address Organization Details Recorded Time 4 COMPLEX VISIT completed Donnie Woods MD [address] [place] [address],[address], [address], [facility] 05/02/2024 13:24:24 4 SP Tube change completed Donnie Woods MD [address] [place] [address],[address], [address], [facility] 05/02/2024 12:08:00 1 Eligard completed Bernice Xie [facility] 07/05/2021 13:23:32 1 Prostate Biopsy Procedure completed Alexandria Segovia MD [address] [place] [address],[address], [address], [facility] 06/21/2021 14:56:07 1 URONAV completed Alexandria Segovia MD [address] [place] [address],[facility] [address], [place], [address], [facility] 06/21/2021 14:56:28 1 Blood Draw/DOCUMENT IMPROVEMENT SPECIALIST/PSA RESULTS completed Leonie Vernon [facility] 06/21/2021 10:54:09 1 Gentamicin Injection completed Leonie Vernon [facility] 06/21/2021 10:55:45 0 Cystoscopy- male completed Ollie José MD [address] [facility],[address], [place], [address], [facility] 08/10/2020 15:43:14 9 Colon[facility] thru [facility] spx [facility] 12:56:44 Imaging Results None recorded. Procedure Notes None recorded. Medical Equipment None Reported. Allergies Allergen ID Allergen Name Allergen Category Reaction Reaction Severity Criticality Documentation Date Start Date Code Code System Note Provider Name and Address Organization Details Recorded Time 974273 metformin medicatio n Not available Not available Not available 07/05/2021 6809 [facility]Norm Bernice Barlove [facility], [facility] 12:54:11 Medications Name Sig Start Date Stop Date Status Note LastModified by Organization Details LastModified Time celecoxib 200 mg capsule TAKE ONE CAPSULE BY MOUTH TWICE A DAY NEEDED FOR PAIN active Not Available Not Available No t Available amoxicillin 500 mg capsule TAKE 4 CAPSULES BY MOUTH 1HR PRIOR TO DENTAL APPOINTME NT active Not Available Not Available No t Available furosemide 40 mg tablet TAKE ONE TABLET BY MOUTH EVERY MORNING active Not Available Not Available No t Available latanoprost 0.005 % eye drops INSTILL 1 DROP IN BOTH EYES EVERY EVENING active Not Available Not Available No t Available prednisone 10 mg tablet 01/09 completed Not Available Not Available Not Available venlafaxine ER 75 mg capsule,ext ended release 24 hr TAKE 1 CAPSULE BY MOUTH ONCE A DAY WITH A MEAL. TOTAL DOSE 225MG 01/09 completed Not Available Not Available Not Available doxycycline hyclate 100 mg capsule 08/10 completed Not Available Not Available Not Available ketoconazol e 2 % shampoo LATHER ON AFFECTED AREA(S) ON SKIN, KEEP ON 5 MINUTES, THEN WASH OFF. USE 3 TIMES A WEEK UNTIL RESOLVED active Not Available Not Available No t Available ammonium lactate 12 % lotion APPLY TO THICKENED PLAQUES 1-2X DAILY ONGOING. 01/09 completed Not Available Not Available Not Available trazodone 50 mg tablet 01/09 completed Not Available Not Available Not Available atorvastati n 10 mg tablet TAKE ONE TABLET BY MOUTH EVERY DAY 01/09 completed Not Available Not Available Not Available lisinopril 20 mg-hydrochl orothiazide 12.5 mg tablet TAKE 1 TABLET BY MOUTH EVERY DAY 01/09 completed Not Available Not Available Not Available azithromyci n 250 mg tablet TAKE 2 TABLETS BY MOUTH ON DAY 1 THEN 1 DAILY FOR 4 DAYS 01/09 completed Not Available Not Available Not Available ibuprofen 800 mg tablet 01/09 completed Not Available Not Available Not Available tizanidine 4 mg tablet TAKE ONE TABLET BY MOUTH EVERY 6 HOURS NEEDED FOR MUSCLE SPASM active Not Available Not Available No t Available fluconazole 150 mg tablet TAKE ONE TABLET BY MOUTH EVERY 3 DAYS FOR TOTAL OF 3 DOSES. 01/09 completed Not Available Not Available Not Available lisinopril 20 mg tablet 01/09 completed Not Available Not Available Not Available methylpheni date 5 mg tablet TAKE ONE TABLET BY MOUTH TWO TIMES A DAY 01/09 completed Not Available Not Available Not Available prednisone 20 mg tablet TAKE 2 TABLETS BY MOUTH EVERY DAY X3 DAYS THEN 1 TABLET EVERY DAY X3 DAYS THEN 1/2 TABLET EVERY DAY X4 DAYS 05/02 completed Not Available Not Available Not Available alendronate 70 mg tablet 01/09 completed Not Available Not Available Not Available venlafaxine ER 150 mg capsule,ext ended release 24 hr TAKE 1 CAPSULE BY MOUTH DAILY WITH THE EVENING MEAL. TAKE ALONG WITH 75MG CAPSULE (TOTAL DOSE IS 225MG) 01/09 completed Not Available Not Available Not Available topiramate 25 mg tablet TAKE 1 TABLET BY MOUTH AT BEDTIME X 14 NIGHTS THEN INCREASE TO 2 TAB AT BEDTIME X 14 NIGHTS THEN 3 TABS AT BEDTIME THEREAFTE R 01/09 completed Not Available Not Available Not Available potassium chloride ER 10 mEq tablet,exte nded release 01/09 completed Not Available Not Available Not Available clopidogrel 75 mg tablet TAKE ONE TABLET BY MOUTH EVERY DAY START TAKING ON Monday01/20/25 active Not Available Not Available No t Available ciprofloxac in 250 mg tablet TAKE ONE TABLET BY MOUTH TWICE A DAY BEFORE MEALS FOR 7 DAYS 01/09 completed Not Available Not Available Not Available ciprofloxac in 500 mg tablet 05/02 completed Not Available Not Available Not Available sulfamethox azole 800 mg-trimetho prim 160 mg tablet TAKE ONE TABLET BY MOUTH TWICE A DAY FOR 7 DAYS 01/09 completed Not Available Not Available Not Available aspirin 81 mg tablet,jacinto yed release TAKE ONE TABLET BY MOUTH TWO TIMES A DAY WITH MEALS active Not Available Not Available No t Available tramadol 50 mg tablet TAKE 1 TABLET BY MOUTH EVERY 8 HOURS NEEDED active Not Available Not Available No t Available triamcinolo ne acetonide 0.1 % topical cream active Not Available Not Available Not Available cefazolin 10 gram solution for injection 05/02 completed Not Available Not Available Not Available nortriptyli ne 25 mg capsule TAKE ONE CAPSULE BY MOUTH AT BEDTIME active Not Available Not Available No t Available cefadroxil 500 mg capsule TAKE ONE CAPSULE BY MOUTH TWICE A DAY 01/09 completed Not Available Not Available Not Available oxycodone-a cetaminophe n 5 mg-325 mg tablet TAKE 1 TABLET BY MOUTH EVERY 6 HOURS IF NEEDED FOR KNEE PAIN. MAXIMUM 4000MG ACETAMINO PHEN PER 24 HOURS. 05/02 completed Not Available Not Available Not Available rifampin 300 mg capsule 01/09 completed Not Available Not Available Not Available prednisolon e acetate 1 % eye drops,suspe nsion PLACE 1 DROP IN SURGICAL EYE(S) 4 TIMES A DAY active Not Available Not Available No t Available tamsulosin 0.4 mg capsule TAKE TWO CAPSULES BY MOUTH EVERY DAY AFTER A MEAL active Not Available Not Available No t Available calcitonin (salmon) 200 unit/actuat ion nasal spray 01/09 completed Not Available Not Available Not Available doxycycline monohydrate 100 mg capsule 01/09 completed Not Available Not Available Not Available cephalexin 500 mg capsule TAKE ONE CAPSULE BY MOUTH THREE TIMES A DAY 01/09 completed Not Available Not Available Not Available pantoprazol e 40 mg tablet,jacinto yed release active Not Available Not Available Not Available nortriptyli ne 10 mg capsule TAKE TWO CAPSULES BY MOUTH EVERY EVENING AT BEDTIME active Not Available Not Available No t Available mirtazapine 30 mg tablet TAKE ONE TABLET BY MOUTH AT BEDTIME active Not Available Not Available No t Available tacrolimus 0.1 % topical ointment APPLY TO AFFECTED AREA(S) TWO TIMES A DAY active Not Available Not Available No t Available nitrofurant oin macrocrysta l 100 mg capsule TAKE ONE CAPSULE BY MOUTH EVERY DAY FOR 7 DAYS active Not Available Not Available No t Available triamcinolo ne acetonide 0.1 % topical ointment APPLY TOPICALLY TO THE AFFECTED AREA THREE TIMES DAILY active Not Available Not Available No t Available buspirone 10 mg tablet TAKE ONE TABLET BY MOUTH 2 TO 3 TIMES DAILY 01/09 completed Not Available Not Available Not Available dapsone 25 mg tablet 01/09 completed Not Available Not Available Not Available betamethaso ne dipropionat e 0.05 % topical cream active Not Available Not Available Not Available gabapentin 300 mg capsule 01/09 completed Not Available Not Available Not Available aspirin 81 mg chewable tablet 01/09 completed Not Available Not Available Not Available hydroxyzine HCl 25 mg tablet TAKE 2 TABLETS BY MOUTH EVERY 6 HOURS NEEDED FOR ITCHING 01/09 completed Not Available Not Available Not Available furosemide 20 mg tablet 01/09 completed Not Available Not Available Not Available ergocalcife rol (vitamin D2) 1,250 mcg (50,000 unit) capsule TAKE 1 CAPSULE BY MOUTH ONCE WEEKLY FOR 8 WEEKS active Not Available Not Available No t Available clobetasol 0.05 % topical ointment APPLY ON THICKENED PLAQUES 2 DAYS A WEEK WHEN NOT USING TACROLIMU S. active Not Available Not Available No t Available levofloxaci n 500 mg tablet TAKE ONE TABLET BY MOUTH EVERY DAY FOR 7 DAYS; TAKE BEFORE EVENING MEAL 01/09 completed Not Available Not Available Not Available gentamicin 40 mg/mL injection solution Take 160 mg by injection route. 01/09 completed Not Available Not Available Not Available levofloxaci n 750 mg tablet 05/02 completed Not Available Not Available Not Available zolpidem 10 mg tablet TAKE 1 TABLET BY MOUTH AT BEDTIME IF NEEDED FOR SLEEP 01/09 completed Not Available Not Available Not Available albuterol sulfate HFA 90 mcg/actuati on aerosol inhaler INHALE 1 TO 2 PUFFS BY MOUTH EVERY 4 HOURS NEEDED FOR SHORTNESS OF BREATH OR WHEEZING active Not Available Not Available No t Available ferrous sulfate 325 mg (65 mg iron) tablet,jacinto yed release TAKE ONE TABLET BY MOUTH EVERY DAY WITH A MEAL active Not Available Not Available No t Available ketoconazol e 2 % topical cream APPLY TO AFFECTED AREA(S) TWO TIMES A DAY active Not Available Not Available No t Available spironolact one 50 mg tablet TAKE TWO TABLETS BY MOUTH EVERY DAY active Not Available Not Available No t Available oxycodone 5 mg tablet TAKE 1-2 TABLET BY MOUTH EVERY 4 HOURS NEEDED FOR PAIN 05/02 completed Not Available Not Available Not Available ciprofloxac in 0.3 %-dexametha sone 0.1 % ear drops,suspe nsion PLACE 4 (FOUR) DROPS INTO RIGHT EAR TWO TIMES DAILY FOR 14 DAYS. active Not Available Not Available No t Available bupropion HCl XL 150 mg 24 hr tablet, extended release TAKE ONE TABLET BY MOUTH EVERY MORNING 01/09 completed Not Available Not Available Not Available duloxetine 30 mg capsule,del ayed release TAKE 1 CAPSULE BY MOUTH DAILY WITH 60 MG CAPSULE active Not Available Not Available No t Available duloxetine 60 mg capsule,del ayed release TAKE TWO CAPSULES BY MOUTH EVERY DAY active Not Available Not Available No t Available lactulose 10 gram/15 mL oral solution TAKE 30ML BY MOUTH TWICE A DAY FOR 30 DAYS 01/09 completed Not Available Not Available Not Available eszopiclone 2 mg tablet 01/09 completed Not Available Not Available Not Available Eligard 45 mg (6 month) subcutaneou s syringe Inject 1 syringe by subcutane ous route. 05/02 completed Not Available Not Available Not Available Acid Controller 10 mg tablet TAKE 1 TABLET BY MOUTH TWICE DAILY NEEDED FOR STOMACH UPSET WHILE ON CLOPIDOGR EL active Not Available Not Available No t Available pregabalin 25 mg capsule TAKE ONE CAPSULE BY MOUTH TWICE A DAY active Not Available Not Available No t Available pregabalin 75 mg capsule TAKE 1 CAPSULE BY MOUTH TWICE DAILY active Not Available Not Available No t Available pregabalin 150 mg capsule TAKE ONE CAPSULE BY MOUTH TWICE A DAY active Not Available Not Available No t Available spironolact one active Not Available Not Available Not Available FeroSul 325 mg (65 mg iron) tablet TAKE 1 TABLET BY MOUTH ONCE DAILY WITH A MEAL 01/09 completed Not Available Not Available Not Available oxycodone 10 mg tablet TAKE ONE AND ONE-HALF TABLETS BY MOUTH EVERY DAY THREE TIMES A DAY active Not Available Not Available No t Available Xifaxan 550 mg tablet 01/09 completed Not Available Not Available Not Available mirabegron ER 50 mg tablet,exte nded release 24 hr 01/09 completed Not Available Not Available Not Available potassium chloride ER 20 mEq tablet,exte nded release 01/09 completed Not Available Not Available Not Available Vitals Date Recorded Body height Body mass index (BMI) Body weight Provider Name and Address Organization Details Last Updated DateTime 01/09/2025 182.88 cm 44.8 kg/m2 550706.48 g Donnie Woods MD [address] [place] [address],[address], [address] [place] [address] 01/09/2025 12:25:44 Date Recorded Body height Body mass index (BMI) Body weight Provider Name and Address Organization Details Last Updated DateTime 05/02/2024 182.88 cm 44.8 kg/m2 228381.48 g Donnie Woods MD [address] [place] [address],[address] [address] [place] [address] 05/02/2024 11:43:13 Date Recorded Body height Body mass index (BMI) Body weight Provider Name and Address Organization Details Last Updated DateTime 06/21/2021 182.88 cm 44.8 kg/m2 348173.48 g Siddharth Torres [facility] 06/21/2021 11:59:17 Date Recorded Body height Heart rate Systolic And Diastolic Provider Name and Address Organization Details Last Updated DateTime 06/21/2021 182.88 cm 84 /min 143/83 mm[Hg] Leonie Vernon [facility] 06/21/2021 11:01:30 Date Recorded Body height Body mass index (BMI) Body weight Provider Name and Address Organization Details Last Updated DateTime 07/05/2021 182.88 cm 44.8 kg/m2 397713.48 g Bernice Xie [facility] 07/05/2021 12:53:44 Date Recorded Body height Body mass index (BMI) Body weight Provider Name and Address Organization Details Last Updated DateTime 08/30/2021 182.88 cm 44.8 kg/m2 566358.48 g Siddharth Torres [facility] 08/30/2021 12:45:54 Social History Question Answer Notes LastModified by Organizat ion Details LastModified Time Tobacco Smoking Status Never Smoker Trudy Emil [facility] 08/10/2020 14:39:14 What Is Your Level Of Caffeine Consumption? Moderate [email or web address] Information not available 08/10/2020 Race White Information no t available 07/05/2021 Ethnicity Not /Lati no [email or web address] Information not available 08/10/2020 Preferred Language Nicaraguan [email or web address] Information not available 08/10/2020 Recreational Drug Use No Information not available 07/05/2021 What Was The Date Of Your Most Recent Tobacco Screening? 01/09/2025 Information not available 01/09/2025 What Is Your Relationship Status? Information not available 07/05/2021 Sex: Male Functional Status Question Answer Note LastModified by Organizat ion Details LastModified Time Do you use any illicit or recreational drugs? No Information not available 06/21/2021 What is your level of alcohol consumption? None two years sober as of 2023 Information not available 05/02/2024 Do you or have you ever used smokeless tobacco? Never used smokeless tobacco Information not available 08/10/2020 Do you or have you ever used e-cigarettes or vape? Never used electronic cigarettes [email or web address] Information not available 08/10/2020 Mental Status None recorded. Family History Relationship Description Onset Age of this Age Resolved Age Notes LastModified by Organization Details LastModified Time Brother Family history of malignant neoplasm of prostate sbaranick Not available 2020 12:55:29 Brother Exposure to Agent Chase [email or web address] Not available 12:56:06 Paternal Grandfather Family history of malignant neoplasm of prostate sbaranick Not available 2020 12:55:29 Sister Leukemia sbaranick Not availabl e 07/05/2021 12:55:46 Sister Family history of breast cancer sbaranick Not available 2020 12:55:54 Medical History Condition Response Diabetes N Sexually Transmitted Infection N Bleeding Disorder N High Blood Pressure Y Kidney Stones N Cancer Y Lung Disease N Depression Y High Cholesterol Y GERD/Acid Reflux Y Heart Disease N Immunizations Vaccine Type Date Status Note Provider Nam e and Address Organization Details Recorded Time COVID-19, mRNA, LNP-S, PF, 30 mcg/0.3 mL dose 12/09/2020 completed ZONIA Hickman - [facility] 04/30/2024 10:18:02 Tdap 05/13/2013 completed ZONIA Hickman [facility] 04/30/2024 10:18:02 Tdap 10/03/2023 completed Not Available On license of [facility] 01/09/2025 12:18:13 Past Encounters Encounter ID Performer Location Encounter Start Date Encounter Closed Date Diagnosis/Indication Diagnosis SNOMED-CT Code Diagnosis ICD10 Code Diagnosis Note [id number] MD Christine CeronSaad [address] [address] 08/10/2020 14:21:14 2020 10:18:20 Microscopic hematuria [id number] R31.29 Negative cystoscopy and upper tract studies. Plan follow-up 6 months. Benign pro static hyperplasia with outflow obstruction [id number] N40.1 We discussed his on tamsulosin . Seems to be overall effective. We will continue. [id number] MD Ina Alfred [address] [address] 06/21/2021 10:42:39 06/21/2021 11:08:51 Prostate specific antigen above reference range [id number] R97.20 [id number] MD Ina Alfred [address] [address] 06/21/2021 10:44:16 06/21/2021 15:16:34 Prostate specific antigen above reference range [id number] R97.20 trus and uronav biopsy done w/o complicati ons. [id number] Alexandria Seg[facility]ia [facility] [address] [facility] [address] [place] [address] 07/05/2021 12:39:15 07/05/2021 13:54:22 Malignant neoplasm of prostate [id number] C61 Patient w sunil 8 disease found on uronav biopsy. here today to discuss options. Given his higher risk disease may require multimodal therapy and he understand s that. we discussed: 1. ADT + IMRT2. surgery followed possibly by adjuvant radiation3 . he is not a good candidate for active surveillan ce given his age of 65 and his high risk disease. not sexually active at this time.could do radiation treatments in [place] . given body habitus would likely be not an ideal surgical candidate. had recent difficulty w knee surgery, staph infection, etc Carcinoma of prostate 25 [id number] C61 [id number] Alexandria Segovia MD [facility] [address] [facility] [place] [address] 08/30/2021 12:32:35 09/01/2021 10:56:34 Jayme hematuria [id number] R31.0 THIS IS ALMOST CERTAINLY FROM BEETS. WE WILL CHECK URINE JUST TO BE SURE AND ALSO DO A CULTURE. [id number] Donnie Woods MD [facility] [address] [place] [address] 05/02/2024 11:19:44 05/10/2024 13:27:15 Clot retention of urine [id number] N13.8 He was irrigated to clear today and a larger bore SP tube placed, which can irrigate more easily.20F SP tube can be changed by nursing at this point. [id number] Donnie Woods MD [facility] [address] [place] [address] 01/09/2025 12:17:37 01/15/2025 13:56:47 Retention of urine [id number] R33.9 This was associated with a UTI.He'll try and plug his SP tube and see if he can void on his own. Jayme hematuria [id number] 5 R31.0 Likely related to aspirin but could also be due to UTI. Since he has a vascular procedure coming up, I'l keep him on a suppressiv e antibioitc , Macrobid. Health Concerns Section Related Observation LastModified by Organization Detai ls LastModified Time None Recorded Concern Status LastModified by Organization Details LastModified Time None Recorded Advance Directives Directive None Recorded Payers Insurance Date Sequence Insurance Name Policy Number Policy Buckley Covered Member ID Buckley Member ID Guarantor Name 01/15/2025 1 [place] MEDICARE COST [id number] Osvaldo Zuniga [id number] Osvaldo Zuniga 01/30/2024 1 PREFERREDONE [id number] Osvaldo Zuniga [id number] Osvaldo Nadia Notes Date Note Type Note Provider Name and Address Organization Details Recorded Time 06/21/2021 text/html patient here for uronav biopsy Alexandria Segovia MD [address] [place] [address],[address], [place], [address], [facility] 06/21/2021 14:56:55 08/30/2021 text/html patient is starting IMRT adjuvant radiation -- had red urineturns out he was taking a Beet extract and when he stopped the urine stopped appearing red Alexandria Segovia MD [address] [place] [address],[address], [place], [address], [facility] 08/30/2021 13:38:48 05/02/2024 text/html 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 He had an SP tube placed a month ago and is here to have it exchanged. He is still having hematuria and needing irrigations to remove clots . Donnie Woods MD [address] [place] [address],[address], [place], [address], [facility] 05/02/2024 13:24:52 01/09/2025 text/html Referred fro urinary retention. he has the suprapubic tube changed every three weeks by a visiting nurse. This is going well. The SP tube clots off on a regular basis. He takes a daily low dose aspirin. He is planning on a procedure to treat a cerebral aneurysm (endovascular). He also has recurrent UTIs. Today his urine is completely clear. Donnie Woods MD [address] [place] [address],[address], [place], [address], [facility] 01/09/2025 12:51:04
--- OUTSIDE RECORDS SUMMARY | 2025-04-08 14:03 | XMS_ITS | Clinical Summary ---
Author Organization [place] Address [address] [place] [id number] Care Team Providers Care Shellfish Processing Machine Tender Name Role Phone Mary Ruggiero PA-C Primary Care Provider [phone] Tanya Andrews APRN CONTRACT AGENT Unavailable [phone] Deep Pires MD Unavailable [phone] Allergies Active Allergy Reactions Criticality Noted Date Comments Metformin Nausea,Diarrhea,Othe r (See Comments),Unknown High 06/22/2018 Severe diarrhea with XR formulation Medications Vitamin D3 (VITAMIN D, CHOLECALCIFEROL,) 25 mcg (1000 units) tablet Take 25 mcg by mouth daily Active clobetasol (TEMOVATE) 0.05 % external ointment Apply topically 2 times daily Active multivitamin, therapeutic (THERA-VIT) TABS tablet Take 1 tablet by mouth daily Active vitamin E (TOCOPHEROL) 1000 units (450 mg) CAPS capsule Take 1,000 Units by mouth daily Active acetaminophen (TYLENOL) 325 MG tabletIndications :Staphylococcal arthritis of right knee (H),Infection of total right knee replacement, initial encounter Take 3 tablets (975 mg) by mouth every 8 hours 4 Active alendronate (FOSAMAX) 70 MG tabletIndications :Age-related osteoporosis without current pathological fracture Take 1 tablet (70 mg) by mouth every 7 days 4 tablet 4 Active atorvastatin (LIPITOR) 10 MG tabletIndications :Brain aneurysm Take 1 tablet (10 mg) by mouth daily 30 tablet 4 Active DULoxetine (CYMBALTA) 60 MG capsuleIndication [...] for muscle spasms 30 tablet 4 Active rifaximin (XIFAXAN) 550 MG TABS tablet Take 550 mg by mouth 2 times daily. 4 Active furosemide (LASIX) 40 MG tablet Take 40 mg by mouth daily. 4 Active olopatadine (PATANOL) 0.1 % ophthalmic solution Place 1 drop into both eyes 2 times daily. 4 Active pantoprazole (PROTONIX) 40 MG EC tablet Take 40 mg by mouth 2 times daily. Active pregabalin (LYRICA) 25 MG capsule Take 25 mg by mouth 2 times daily. 4 Active oxyCODONE IR (ROXICODONE) 10 MG tablet Take 15 mg by mouth 3 times daily. 4 Active lactulose 20 GM/30ML solution Take 20 g by mouth 3 times daily. Active acetaminophen (TYLENOL) 325 MG tabletIndications :Chronic infection of knee joint prosthesis, initial encounter Take 3 tablets (975 mg) by mouth every 8 hours. 90 tablet 5 Active oxyCODONE (ROXICODONE) 5 MG tabletIndications :Chronic infection of knee joint prosthesis, initial encounter Take 1 tablet (5 mg) by mouth every 4 hours as needed for moderate pain. 50 tablet 5 Active aspirin 81 MG EC tabletIndications :Chronic infection of knee joint prosthesis, initial encounter Take 1 tablet (81 mg) by mouth daily. 60 tablet 5 Active hydrOXYzine HCl (ATARAX) 10 MG tabletIndications :Chronic infection of knee joint prosthesis, initial encounter Take 1 tablet (10 mg) by mouth every 6 hours as needed for other (adjuvant pain). 50 tablet 5 Active methocarbamol (ROBAXIN) 500 MG tabletIndications :Chronic infection of knee joint prosthesis, initial encounter Take 0.5 tablets (250 mg) by mouth every 6 hours as needed for muscle spasms. 50 tablet 5 Active ondansetron (ZOFRAN ODT) 4 MG ODT tabIndications:Ch ronic infection of knee joint prosthesis, initial encounter Take 1 tablet (4 mg) by mouth every 6 hours as needed for nausea or vomiting. 40 tablet 5 Active senna-docusate (SENOKOT-S/NASH LACE) 8.6-50 MG tabletIndications :Chronic infection of knee joint prosthesis, initial encounter Take 1 tablet by mouth 2 times daily. 50 tablet 5 Active cefadroxil (DURICEF) 500 MG capsuleIndication s:Chronic infection of knee joint prosthesis, initial encounter Take 1 capsule (500 mg) by mouth 2 times daily. 60 capsule 2 5 Active mirabegron (MYRBETRIQ) 50 MG 24 hr tabletIndications :Bladder spasms Take 1 tablet (50 mg) by mouth daily. 30 tablet 11 5 Active Active Problems Problem Noted Date Diagnosed Date Chronic infection of prosthetic knee 10/03/2024 Septic joint 01/15/2024 Encounters Date Type Department Care Team Description 02/26/2025 MyC Medical Advice [facility] [address] [address] Kimberlee Silverio 02/21/2025 Telephone [facility] [address] [phone] Baron Deluca PA-C 02/14/2025 1:30 PM CDT Virtual Visit [facility] [address] [place] [address] Baron Deluca PA-C Bladder spasms (Primary Dx) 01/19/2025 Refill [facility] [address] [phone] Robyn Keys APRN CONTRACT AGENT Medication Refill from Last 3 Months Social History Tobacco Use Types Packs/Day Years Used Date Smoking Tobacco: Former Cigarettes 2 35 1 971 - 2006 Smokeless Tobacco: Never Tobacco Cessation:Counseling Given: Not Answered Alcohol Use Standard Drinks/Week Comments Not Currently 0 (1 standard drink = 0.6 oz pur e alcohol) PHQ-2 Answer Date Recorded PHQ-2 Score 6 02/14/2025 Adolescent Education Answer Date Record ed Getting School Help Needed Not on file 06/10 Food Insecurity Answer Date Recorded Within the past 12 months, d id you worry that your food would run out before you got money to buy more? No 10/04/2024 Within the past 12 months, d id the food you bought just not last and you didn t have money to get more? No 10/04/2024 Housing Stability Answer Date Recorded Do you have housing? ([place] river[place] is defined as stable permanent housing and does not include staying outside in a car, in a tent, in an abandoned building, in an overnight penitentiary, or couch-surfing.) Yes 10/04/2024 Are you worried about losing your housing? No 10/04/2024 Financial Resource Strain Answer Date R ecorded Within the past 12 months, h ave you or your family members you live with been unable to get utilities (heat, electricity) when it was really needed? No 10/04/2024 Transportation Needs Answer Date Record ed Within the past 12 months, h as lack of transportation kept you from medical appointments, getting your medicines, non-medical meetings or appointments, work, or from getting things that you need? No 10/04/2024 Interpersonal Safety Answer Date Record ed Do you feel physically and e motionally safe where you currently live? Yes 10/03/2024 Within the past 12 months, h ave you been hit, slapped, kicked or otherwise physically hurt by someone? No 10/03/2024 Within the past 12 months, h ave you been humiliated or emotionally abused in other ways by your partner or ex-partner? No 10/03/2024 Sex and Gender Information Value Date Recorded Sex Assigned at Not on file Legal Sex Male 1:14 PM INLAYER Gender Identity Not on file Sexual Orientation Not on file Last Filed Vital Signs Vital Sign Reading Time Taken Comments Blood Pressure 142/48 10/04/2024 7:57 AM INLAYER Pulse 76 10/04/2024 7:57 AM INLAYER Temperature 36.9 C (98.4 F) 10/04/2024 7:57 AM INLAYER Respiratory Rate 16 10/04/2024 7:57 AM INLAYER Oxygen Saturation 99% 10/04/2024 7:57 AM INLAYER Inhaled Oxygen Concentration - - Weight 135.9 kg (299 lb 11.2 oz) 2024 10:33 AM INLAYER Height 182.9 cm (6' 0.01) 10/03/2024 1 0:33 AM INLAYER Body Mass Index 40.64 10/03/2024 10:33 AM INLAYER Plan of Treatment Health Maintenance Due Date Last Done Comments ANNUAL REVIEW OF HM ORDERS 1957 CT COLONOGRAPHY 1957 FLEX SIG 1957 LIPID 1957 sDNA (Cologuard) 1957 HEPATITIS A VACCINE (1 of 2 - Risk 2-dose series) 1976 PNEUMOCOCCAL VACCINE 50+ YEARS (1 of 2 - PCV) 1976 ZOSTER VACCINE (1 of 2) 2007 HEPATITIS B VACCINE (1 of 3 - Risk 3-dose series) 2017 RSV VACCINE (1 - Risk 60-74 years 1-dose series) 2017 FALL RISK ASSESSMENT 2022 MEDICARE ANNUAL WELLNESS VISIT 03/03/2024 03/03/2023, 07/06/2020 COVID-19 VACCINE ( - season) 2024 FIT 03/01/2025 03/01/2024 INFLUENZA VACCINE (#1) 2025 DIABETES SCREENING 10/03/2027 10/03/2024, 0 01/29/2024, 01/23/2024, Additional history exists ADVANCE CARE PLANNING 05/08/2029 05/08/2024 COLONOSCOPY 03/28/2032 03/28/2022, 09/2018, 09/17/2018 COLORECTAL CANCER SCREENING 03/28/2032 DTAP/TDAP/TD VACCINE (4 - Td or Tdap) 10/03/2033 10/03/2023, 05/13/2013, 12/23/2002 HEPATITIS C SCREENING Completed 03/05/2024, 017 AORTIC ANEURYSM SCREENING (SYSTEM ASSIGNED) Completed 11/21/2024, 08/07/2024, 07/31/2024, Additional history exists PHQ-2 (once per calendar year) Completed 02/14/2025, 02/14/2025, 07/08/2024, Additional history exists HPV VACCINE Aged Out No longer eligi ble based on patient's age to complete this topic MENINGITIS VACCINE Aged Out No longer eligible based on patient's age to complete this topic Goals Goal Patient Goal Type Associated Problems Recent Progress Patient-Stated? Author Autogenera zoraida Goal Care Plan Autogenerated Problem No Sania Gutierrez Medical Devices Implanted Type Area Field Rep Device Identifier Shelf Expiration Date Model / Serial / Lot Imp Bone Cement Strk Simplex Hv Full Dose 6194-1-001 - [id number] Implanted:Qty: 3 on 10/03/2024 by Caleb Garcia MD at [facility] Cement, Bone Right: Knee [employer] [id number] 09/17/2025 6194-1-00 [id number] E Persona Revision Femoral Distal Augment, Size 9, 9+, 5mm Thickness Implanted:Qty: 1 on 10/03/2024 by Caleb Garcia MD at [facility] Total Joint Componen t/Insert Right: Knee JAMES [id number] 05/18/2029 42-5566-0 66- / [id number] Persona Revision Femur Cemented Plus, Right, Size 9+ Implanted:Qty: 1 on 10/03/2024 by Caleb Garcia MD at [facility] Total Joint Componen t/Insert Right: Knee JAMES [id number] 07/07/2034 42-5046-0 66- [id number] Persona Revision Femoral [place]one, Size Medium Implanted:Qty: 1 on 10/03/2024 by Caleb Garcia MD at [facility] Total Joint Componen t/Insert Right: Knee [employer]AMES [id number] 05/18/2029 42-5450-0 06-29 [id number] Persona Revision Tibial [place]one, Size Large Implanted:Qty: 1 on 10/03/2024 by Caleb Garcia MD at [facility] Total Joint Componen t/Insert Right: Knee JAMES [id number] 12/27/2030 42-5450-0 01-28 [id number] Stem Tib 75+ Mm 14mm Persona Strg Kn Smth Rev Strl Lf - [id number] Implanted:Qty: 1 on 10/03/2024 by Caleb Garcia MD at [facility] Total Joint Componen t/Insert Right: Knee [employer] [id number] 04/24/2034 42-5600-0 - [id number] 25mm [place] Femoral Cement Restrictor Implanted:Qty: 1 on 10/03/2024 by Caleb Garcia MD at [facility] Total Joint Componen t/Insert Right: Knee [employer] 03/15/2034 [id number] / / [id number] Persona Revision Vivacit-E Polyethylene Articular Surface, Fixed Bearing, Cck, Right, 14mm Height Implanted:Qty: 1 on 10/03/2024 by Caleb Garcia MD at [facility] Total Joint Componen t/Insert Right: Knee JAMES [id number] 02/06/2029 42-5228-0 07- [id number] Persona Vivacit-E Polyethylene, Right, 14mm, Cps, Fixed Bearing Articular Surface Implanted:Qty: 1 on 10/03/2024 by Caleb Garcia MD at [facility] Total Joint Componen t/Insert Right: Knee JAMES [id number] 02/28/2029 42-5226-0 07-14 [id number] Cmpnt Tib Persona F Kn Rt Npor Rev Fx Strl Lf - [id number] Implanted:Qty: 1 on 10/03/2024 by Caleb Garcia MD at [facility] Total Joint Componen t/Insert Right: Knee [employer] [id number] 05/30/2034 42-5420-0 75-02 [id number] Stem Tib 75+ Mm 14mm Persona Strg Kn Smth Rev Strl Lf - [id number] Implanted:Qty: 1 on 10/03/2024 by Caleb Garcia MD at [facility] Total Joint Componen t/Insert Right: Knee [employer] [id number] 04/10/2034 42-5600-0 75-14 [id number] Persona Revision Femoral Distal Augment, Size 9, 9+, 5mm Thickness Implanted:Qty: 1 on 10/03/2024 by Caleb Garcia MD at [facility] Total Joint Componen t/Insert Right: Knee JAMES [id number] 12/28/2030 42-5566-0 66-05 [id number] Explanted Type Area Field Rep Device Identifier Shelf Expiration Date Model / Serial / Lot Bone Cement Simplex Full Dose 6191-1-001 - [id number] Implanted:Qty: 3 on 01/17/2024 by Caleb Garcia MD at [facility] Explanted:Qty: 3 on 10/03/2024 by Caleb Garcia MD at [facility] Cement, Bone Right: Knee [employer] [id number] 10/18/2025 6191-1-00 [id number] Imp Comp Fem Strk Triathln Dist Aug 5mm Rt 6 5540-A-602 - [id number] Implanted:Qty: 1 on 01/17/2024 by Caleb Garcia MD at [facility] Explanted:Qty: 1 on 10/03/2024 by Caleb Garcia MD at [facility] Total Joint Component /Insert Right: Knee [employer] [id number] 03/29/2028 5540-A-60 2 / / [id number] Imp Comp Fem Strk Triathln Dist Aug 5mm Rt 6 5540-A-602 - [id number] Implanted:Qty: 1 on 01/17/2024 by Caleb Garcia MD at [facility] Explanted:Qty: 1 on 10/03/2024 by Caleb Garcia MD at [facility] Total Joint Component /Insert Right: Knee [employer] [id number] 11/02/2027 5540-A-60 2 / / [id number] Imp Comp Fem Strk Triathln Ps Rt 6 5515-F-602 - [id number] Implanted:Qty: 1 on 01/17/2024 by Caleb Garcia MD at [facility] Explanted:Qty: 1 on 10/03/2024 by Caleb Garcia MD at [facility] Total Joint Component /Insert Right: Knee [employer] [id number] 11/16/2028 5515-F-60 2 / / [id number] Triathlon All Poly Tibial Compent - Ps Size #5, 11mm Ps Implanted:Qty: 1 on 01/17/2024 by Caleb Garcia MD at [facility] Explanted:Qty: 1 on 10/03/2024 by Caleb Garcia MD at [facility] Total Joint Component /Insert Right: Knee [employer]IGEL [id number] 08/13/2028 5535-A-51 [id number] Right Knee 4 Components Explanted:Qty: 1 on 01/17/2024 by Caleb Garcia MD at [facility] Right: Knee Procedures Procedure Name Priority Date/Time Associated Diagnosis Comments GLUCOSE BY METER Routine 10/03/2024 10:[address] ABDOMEN PELVIS W/O CONTRAST Routine 01/20/2024 8:46 AM CDT from Last 3 Months or Most Recently Relevant to Health Maintenance Results * Glucose by meter (10/03/2024 10:29 AM INLAYER) GLUCOSE BY METER POCT 94 70 - 99 mg/dL 10/03/2024 10:36 AM INLAYER LABORATORY POC Blood, Capillary BLOOD SPECIMEN / Unknown 10/03/2024 10:29 AM INLAYER 10/03/2024 10:36 AM INLAYER us Caleb Garcia MD LAB - BEAKER POCT Final Result LABORATORY POC [facility] [address] [facility] (1st floor, no room number) [place] [address] * CT Abdomen Pelvis w/o Contrast (01/20/2024 8:46 AM CDT) Anatomical Region Laterality Modality Abdomen/Pelvis, SUBRAD CT MANUEL DY, UMP CT ABDOMEN PELVIS, RAD CT Computed Tomography 01/20/2024 8:46 AM CDT Impressions 01/20/2024 9:27 AM CDT IMPRESSION: 1. Decrease in the gas and fluid in the prostate as compared to the previous examination consistent with improving abscess. 2. No hydronephrosis in either kidney on examination today. Crandall catheter in good position and the bladder is decompressed. 3. Small amount of abdominal ascites. Narrative 01/20/2024 9:27 AM CDT EXAM: CT ABDOMEN AND PELVIS WITHOUT CONTRAST LOCATION: [facility] DATE: 01/20/2024 INDICATION: Following for hydronephrosis, [...] CT ABDOMEN AND PELVIS WITHOUT CONTRAST LOCATION: [facility] DATE: 01/20/2024 INDICATION: Following for hydronephrosis, [...] decompressed. 3. Small amount of abdominal ascites. 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 Source: [facility]. 06/25/2024 Insurance [facility] Advance Directives For more information, please contact: [phone] Documents on File Type Date Recorded Patient Head Of Strategy Expl anation Advance Directives and Living Will 05/08/2024 Health Care Directiv e 04/23/2024 * Full Code (Latest Code Status on File) Date Activated Date Inactivated Comments 10/03/2024 4:14 PM 10/04/2024 5:41 PM All basic an d advanced life-sustaining interventions are performed as appropriate Question Answer Comments Code status determined by: Discussion with patie nt/ legal decision maker * Full Code Date Activated Date Inactivated Comments 01/23/2024 8:19 AM 04/29/2024 8:58 AM Question Answer Comments Code status determined by: Discussion with patie nt/ legal decision maker * Full Code [...] Comments Code status determined by: Discussion with patie nt/ legal decision maker Healthcare Agents on File Name Relationship Healthcare Agent Rubymn reyna Communication Rosibel Nadia Spouse Health Care Agent Fani Hannah Daughter [facility] Health C are Agent Care Teams Shellfish Processing Machine Tender Relationship Specialty Start Date End Date Mary Ruggiero [place] [address] [address] [place] [address] PCP - General 01/16/24 Tanay Andrews APRN CONTRACT AGENT [phone] [place] [address] [address] [address] Nurse Practitioner Urology 03/22/24 Deep Pires MD [address] [place] [address] [address] [place] [address] Assigned Surgical Provider 05/10/24
--- OUTSIDE RECORDS SUMMARY | 2025-04-08 14:03 | XMS_ITS ---
Author Organization [facility] enter Care Team Providers Care Traffic Sergeant Name Role Phone Feliberto Leigh Unavailable Unavailable Robyn Keys Unavailable Unavailable Allergies and adverse reactions Code CodeSystem Substance Reaction Severity StartDate Concern Status 6809 RXNORM metFORMIN Unknown 01/23/2024 active Care Team Name Role Address Phone Organization Dates Feliberto Leigh PCP [facility] [address], [place], [address], [place] (Office): : (Pager): [facility] 01/23/2024 - 02/03/2024 Robyn Keys [address], [place], [address], [place] (Office): : : [facility] 01/23/2024 - 02/03/2024 Immunizations Immunization Status Vaccine Details Vaccine Code CodeSystem Date Notes Tdap completed tetanus toxoid, reduced diphtheria toxoid, and acellular pertussis vaccine, adsorbed 115 CVX created date: 01/24/2024 administer ed date: 10/03/2023 SARS-COV-2 (COVID-19) completed SARS-COV-2 (COVID-19) vaccine, mRNA, spike protein, LNP, preservative free, 30 mcg/0.3mL dose Step 1 of Multi-step with next step required 208 CVX created date: 01/24/2024 administer ed date: 12/09/2020 Prevnar 20 cancelled Pneumococcal conjugate vaccine 20-valent (PCV20), polysaccharide [id number] conjugate, adjuvant, preservative free 216 CVX created date: 01/24/2024 consent date: 01/24/2024 Educated by Tran Tejada RN on 01/24/2024 [employer] Covid [id number] Formula cancelled SARS-COV-2 (COVID-19) vaccine, mRNA, spike protein, LNP, preservative free, lisy-sucrose, 30 mcg/0.3 mL dose 309 CVX created date: 01/24/2024 consent date: 01/24/2024 Educated by Tran Tejada RN on 01/24/2024 influenza, recombinant, quadrivalent,inj ectable, preservative free cancelled Influenza, recombinant, quadrivalent, injectable, preservative free 185 CVX created date: 01/24/2024 consent date: 01/24/2024 Mental Status Section Date Assessment Total Score Description 02/03/2024 BIMS 14 cognitively int act CAM 0 No delirium ind icated PHQ-9 00 01/29/2024 BIMS 14 cognitively int act CAM 0 No delirium ind icated PHQ-9 01 minimal depress ion Problems Problem # Description Date of onset Resolved Date Code CodeSystem Concern Status 1 ACUTE KIDNEY FAILURE, UNSPECIFIED 024 01/23/[address] completed 2 ACUTE POSTHEMORRHAGIC ANEMIA [address] active 3 ANXIETY DISORDER, UNSPECIFIED [address] active 4 ATOPIC NEURODERMATITIS [address] active 5 BODY MASS INDEX [BMI]40.0-44.9, ADULT [address] active 6 CEREBRAL ANEURYSM, NONRUPTURED [address] active 7 DEPRESSION, UNSPECIFIED [address] active 8 ENCOUNTER FOR OTHER ORTHOPEDIC AFTERCARE [address] active 9 ESSENTIAL (PRIMARY) HYPERTENSION [address] active 10 FLUID OVERLOAD, UNSPECIFIED [address] active 11 GASTRO-ESOPHAGEAL REFLUX DISEASE WITHOUT ESOPHAGITIS [address] active 12 HYPERLIPIDEMIA, UNSPECIFIED [address] active 13 LYMPHEDEMA, NOT ELSEWHERE CLASSIFIED [address] active 14 METHICILLIN SUSCEPTIBLE STAPHYLOCOCCUS AUREUS INFECTION THE CAUSE OF DISEASES CLASSIFIED ELSEWHERE [address] active 15 MORBID (SEVERE) OBESITY DUE TO EXCESS CALORIES [address] active 16 MUSCLE WEAKNESS (GENERALIZED) [address] active 17 NEED FOR ASSISTANCE WITH PERSONAL CARE [id number] SNOMED CT active 18 OBSTRUCTIVE SLEEP APNEA (ADULT) (PEDIATRIC) [address] active 19 OTHER FATIGUE 16856867 SNOMED CT active 20 PERSONAL HISTORY OF MALIGNANT NEOPLASM OF PROSTATE [address] active 21 PRESENCE OF RIGHT ARTIFICIAL KNEE JOINT [address] active 22 REPEATED FALLS [address] active 23 RETENTION OF URINE, UNSPECIFIED [address] active 24 STAPHYLOCOCCAL ARTHRITIS, RIGHT KNEE [address] active 25 THROMBOCYTOPENIA, UNSPECIFIED [address] active 26 TYPE 2 DIABETES MELLITUS WITHOUT COMPLICATIONS [address] active 27 UNSPECIFIED HYDRONEPHROSIS [address] active Reason for Referral No Reasons for Referral Entered Social History Social History Observation Description Start Date End Date Code Code System Current Smoking Status Tobacco smoking consumption unknown 268842989 SNOMED CT Sex Assigned At Male 1955 92939-8 [facility] Gender Identity Vital Signs Code Code System Vitals Name Values and Units Timing Information 61785-5 [facility] Weight Frxnh=999.8 Units=Lbs 9279-1 [facility] Respiratory Rate Value=18.0 Units=/m in 02/03/2024 8462-4 [facility] Blood Pressure-Diastolic Value=65 Un its=mmHg 02/03/2024 8480-6 [facility] Blood Pressure-Systolic [place]=149 Un its=mmHg 02/03/2024 8310-5 [facility] Body Temperature Value=97.8 Units= F 02/03/2024 8867-4 [facility] Heart rate Value=83.0 Units=/min 05885-6 [facility] O2 % BldC Oximetry Value=94.0 Units= % 02/03/2024 21758-7 [facility] Pain Level Value=0.0 02/03/2024 8302-2 [facility] Height Value=72.0 Units=Inches 01/24/2024
--- OUTSIDE RECORDS SUMMARY | 2025-04-08 14:03 | XMS_ITS | Clinical Summary ---
Author Organization [facility] Address [address] [place] [id number] Care Team Providers Care Assistant District Attorney Name Role Phone Emma Webb BROKER IN CHARGE Unavailable [phone] Unavailable [phone] Osvaldo Guerrero RN Unavailable Simran Warner MD Unavailable Shonna Grant ASSOCIATE STORE DIRECTOR Unavailable Mary Abbasi Primary Care Provider [phone] Alexandria Segovia MD Unavailable [phone] Allergies Active Allergy Reactions Criticality Noted Date Comments Metformin Diarrhea Medium 06/22/2018 Severe diarrhea with XR formulation Medications vitamin e 1,000 unit cap Take 1,000 units by mouth once daily. 05/16/20 22 Active cholecalciferol (Vitamin D) 1,000 unit capsule Take 1 Capsule (1,000 units) by mouth once daily. 0 08/12/20 22 Active Non-Adherent Bandage 4 X 4 spgeIndications:Uri nary retention Apply topically to affected area(s). Apply around drain twice per week and as needed if dressing wet or loose. 100 Each 2 03/22/20 24 Active Adhesive Tape (Medipore H) 3 X 10 -yard tapeIndications:Uri nary retention Apply topically to affected area(s). 3 Each 2 03/22/20 24 Active acetaminophen (TYLENOL) 325 mg tabletIndications:C hronic pain of right knee Take 2 Tablets (650 mg) by mouth every 6 hours if needed for Pain. Max dose per day is 2000 mg 06/08/20 24 Active pantoprazole (PROTONIX) 40 mg delayed-release tabletIndications:G astrointestinal hemorrhage, unspecified gastrointestinal hemorrhage type TAKE 1 TABLET(40 MG) BY MOUTH TWICE DAILY 180 Tablet 2 09/23/19 25 Active ketoconazole 2 % creamIndications:Ti zackary versicolor APPLY TO AFFECTED AREA(S) TWO TIMES A DAY 60 g 1 11/20/19 25 Active furosemide (LASIX) 40 mg tabletIndications:C irrhosis of liver with ascites, unspecified hepatic cirrhosis type (HC) Take 1 Tablet (40 mg) by mouth once daily in the morning. 90 Tablet 3 11/22/19 25 Active spironolactone (ALDACTONE) 50 mg tabletIndications:C irrhosis of liver with ascites, unspecified hepatic cirrhosis type (HC) Take 2 Tablets (100 mg) by mouth once daily. 180 Tablet 3 11/22/19 25 Active MULTIVITAMIN ORAL Take 1 Tablet by mouth once daily. Active atorvastatin 10 mg tabletIndications:M ixed hyperlipidemia Take 1 Tablet (10 mg) by mouth once daily. 90 Tablet 3 12/10/19 25 Active pregabalin 25 mg capsuleIndications: Neuropathic pain Take 1 Capsule (25 mg) by mouth two times daily. 180 Capsule 1 12/18/19 25 Active lactulose 10 g/15 mL solution Take 20 g by mouth two times daily. 30 mL (20 g) two times daily Active latanoprost 0.005 % ophthalmic solution Place 1 Drop into both eyes at bedtime. Verified home supply 01/28/25 [facility] exp: 06/2026 Active mirtazapine 30 mg tabletIndications:D epression, unspecified depression type Take 1 Tablet (30 mg) by mouth at bedtime. 90 Tablet 3 01/03/20 25 Active DULoxetine 60 mg Delayed-release capsuleIndications: ARABELLA (generalized anxiety disorder) TAKE TWO CAPSULES BY MOUTH EVERY DAY 180 Capsule 01/22/20 25 Active tamsulosin 0.4 mg capsuleIndications: BPH with urinary obstruction Take 2 Capsules (0.8 mg) by mouth once daily after a meal. 180 Capsule 3 01/22/20 25 Active amoxicillin 500 mg capsule Take 500 mg by mouth. PRIOR TO DENTAL APPOINTMENTS Active olopatadine 0.1 % ophthalmic solution Place 1 Drop into both eyes once daily if needed (allergy symptoms). Verified home supply 01/28/25 [facility] exp: 01/2026 Active aspirin 81 mg enteric coated tabletIndications:C erebral aneurysm (HC) Take 1 Tablet (81 mg) by mouth once daily. Hold for 1 week following admission then restart taking. 01/31/20 25 Active hyoscyamine sublingual 0.125 mg sublIndications:Gumaro dder spasms Place 1 Tablet (0.125 mg) under the tongue every 4 hours if needed for Bladder Spasms. 30 Tablet 5 02/01/20 25 Active ferrous sulfate 325 mg delayed release tabletIndications:M icrocytic anemia Take 1 Tablet (325 mg) by mouth once daily with a meal. 60 Tablet 03/05/20 25 Active fluconazole 150 mg tabletIndications:C andidiasis Take 1 dose every 3 days for total of 3 doses 3 Tablet 03/04/20 25 Active oxyCODONE 10 mg tabletIndications:S tatus post revision of total replacement of right knee,Controlled substance agreement signed,Chronic pain of right knee,Infection of prosthetic knee joint, subsequent encounter Take 1.5 Tablets (15 mg) by mouth three times daily. 135 Tablet 03/29/20 25 Active busPIRone (BUSPAR) 15 mg tabletIndications:M oderate episode of recurrent major depressive disorder (HC) Take 1 Tablet (15 mg) by mouth two times daily. 60 Tablet 04/02/20 25 Active busPIRone 10 mg tabletIndications:S evere recurrent major depression without psychotic features (HC) Take 1 Tablet (10 mg) by mouth two times daily. Take one tablet (5 mg) by mouth twice daily for one week, then increase to two tablets (10 mg) twice daily 60 Tablet 1 03/06/20 25 2024 Discontin ued(Reord er (E-cancel not sent)) busPIRone 15 mg tabletIndications:M oderate episode of recurrent major depressive disorder (HC) Take 1 Tablet (15 mg) by mouth two times daily. 60 Tablet 1 03/13/20 25 2024 Discontin ued(*Avai lability/ Formulary change/Co st of medicatio n) metroNIDAZOLE 500 mg tabletIndications:B alajose ltis Take 1 Tablet (500 mg) by mouth two times daily for 7 days. 14 Tablet 03/13/202024 Hospital, Clinic, or Other Facility Administered Medication Ordered Dose Route Frequency Start Date End Date Status ferumoxytoL (FERAHEME) 510 mg/17 mL (30 mg/mL) injection 510 mgIndications:Iron deficiency anemia due to chronic blood loss 510 mg IV ONE TIME 03/24/2025 03/25/2025 End ed ferumoxytoL (FERAHEME) 510 mg/17 mL (30 mg/mL) injection 510 mgIndications:Iron deficiency anemia due to chronic blood loss 510 mg IV ONE TIME 03/31/2025 03/31/2025 Dis continued ferumoxytoL (FERAHEME) 510 mg/17 mL (30 mg/mL) injection 510 mgIndications:Iron deficiency anemia due to chronic blood loss 510 mg IV ONE TIME 03/31/2025 03/31/2025 Dis continued ferumoxytoL (FERAHEME) 510 mg/17 mL (30 mg/mL) injection 510 mgIndications:Iron deficiency anemia due to chronic blood loss 510 mg IV ONE TIME 04/01/2025 04/01/2025 End ed Active Problems Problem Noted Date Diagnosed Date Severe recurrent major depre ssion without psychotic features 01/30/2025 Alcohol use disorder in remission 01/30/2025 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 01/28/25, device is MRI up to 3 JAKE compatible 01/28/2025 Hematuria 01/28/2025 Urinary tract infection asso ciated with indwelling urethral catheter 12/20/2024 VRE (vancomycin-resistant Enterococci) Abnormal gait 11/26/2024 Chronic pain 11/26/2024 Liver cirrhosis 11/26/2024 Overview (11/26/2024): AI Summary: As of 10/22/24: The patient has 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 The patient has been treated with rifaximin and lactulose, and underwent esophageal varice banding for a GI bleed on 09/17/2024. The patient's cirrhosis is currently stable, though they have experienced hospitalizations for complications including fluid overload and radiation cystitis. 09/13/24: T Aubrey 0.7 mg/dL 10/04/24: INR 1.61 On meds: furosemide Recent encounter dx: 11/04/24: Support OP Encounter - [facility] 11/03/24: Support OP Encounter - [facility] 09/17/24: Appointment - [facility] 09/02/24: Appointment - [facility] 08/27/24: Discharged Inpatient - [facility]-MEDSURG/CCU (from [facility]) Recent studies: 11/04/24: Order - US ABDOMEN LIVER COMPLETE ... [+] Assessment Hepatic cirrhosis, unspecified hepatic cirrhosis type, unspecified whether ascites present (K74.60). 10/22/24: Order - ULTRASOUND LIVER, 10/22/2024 ... [+] Assessment Hepatic cirrhosis, unspecified hepatic cirrhasis type, unspecified whether ascites present (K74,60). 08/05/24: US ABDOMEN LIMITED ASCITES by LAI Grigsby, Eliu Dotson MD ... [+] INDICATION: Decompensated hepatic cirrhosis. 07/31/24: CT ABDOMEN PELVIS W by LAI Felix, Fatemeh Jean MD ... [+] INDICATION: Cirrhosis, lower abdominal pain. ... [+] Liver: Cirrhosis. ... [+] 1. Nonspecific fluid collection at the right side of the bladder base at the region of the prostate and urethra. The patient has a known prostatic urethral stricture. Collection not previously seen. Consider correlation with cystogram/urethrogram/CT urogram. 2. Splenomegaly, 19 centimeters. In 2019 the spleen length was 18 centimeters. 3. Cirrhosis. Small ascites. Varices. 4. Bilateral sacral ... ... [+] Cirrhosis. 07/31/24: Ultrasound Report - [facility], ABDOMEN COMPLETE, 07/31/2024 by MARY ABBASI ... [+] Decom pensated hepatic cirrhosis Recent notes: 10/22/24: Consults by LAI Grigsby ... [+] Osvaldo ceja is a 69-year-old male who presents for follow-up regarding cirrhosis of the liver. ... 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 ... [-] Assessment Hepatic cirrhosis, unspecified hepatic cirrhosis type, unspecified whether ascites present (K74.60). ... [+] Heidi Riley is a very pleasant 69-year-old male with cirrhosis sober since 2021. 10/04/24: Consult Notes - Consults by Anai Tineo PA-C (from [place]) ... [+] Osvaldo Ceja is a 69 year old male with a history of Liver Cirrhosis, Chronic Opioid Dependence, Prostate Cancer, Suprapubic Catheter in place, HTN, HLD, Obesity, Depression who is admitted s/p Removal of antibiotic spacer, right knee Revision right total knee arthroplasty. ... [+] Osvaldo Ceja is a 69 year old male with a history of Liver Cirrhosis, Chronic Opioid Dependence, Prostate Cancer, Suprapubic Catheter in place, HTN, HLD, Obesity, Depression who is admitted s/p Removal of antibiotic spacer, right knee ... [+] Alcoholic Liver Cirrhosis ... [+] Hx of Cirrhosis complicated by hx of Hepatic Encephalopathy and Esophageal Varices. ... [+] This patient is a 69 year old male with a history of Liver Cirrhosis, Chronic Opioid Dependence, Prostate Cancer, Suprapubic Catheter in place, HTN, HLD, Obesity, Depression who is admitted s/p Removal of antibiotic spacer, right knee Revision right total knee arthroplasty. 10/04/24: Consult Notes - Consults by Madelyn Zaman RD (from [place]) ... [+] PMH of: Prostate CA, cirrhosis. 09/27/24: H&P - Preoperative Consultation by LAI Felix ... [+] He has cirrhosis of the liver, stable. ... [+] ? Alcoholic cirrhosis of liver with ascites (HC) K70.31 09/17/24: Progress Notes by Shonna Grant NP ... [+] He is now being treated for hepatic cirrhosis and he feels this is helping him . ... [+] He is under the care of [facility] cirrhosis, with a follow-up appointment scheduled for 10/31/2024 or 11/01/2024. ... [+] Osvaldo was hospitalized with GI bleed 2/2 to esphageal varcies, completed banding, liver cirrhosis. ... [+] He is on xifaxan for liver cirrhosis, as well as lactulose as needed with plan to repeat EGD in the next couple of months. ... [+] [place] [facility] [place] and was seen again in the ER last week for fluid overload presumably due to his cirrhosis. Lumbosacral spondylosis without myelopathy 11/26 Muscle wasting disorder 11/26/2024 Somatic dysfunction of lumbar region 11/26/2024 Somatic dysfunction of sacral region 11/26/2024 Heart failure with preserved ejection fraction 0 11/26/2024 Overview (11/26/2024): - stable, giving small fluid bolus today, monitor for volume overload Complicated UTI (urinary tract infection) 2024 Pseudomonas urinary tract infection 11/26/2024 Suprapubic catheter 11/26/2024 Infection due to vancomycin resistant Enterococc us faecium 11/26/2024 Suprapubic catheter 11/23/2024 Stage 3a chronic kidney disease 11/23/2024 Sensorineural hearing loss, bilateral 11/07/2024 Hematuria 06/04/2024 Postprocedural male urethral stricture 4 Alcoholic cirrhosis of liver with ascites 2023 Anemia 02/29/2024 Ureter filling defect 01/29/2024 Atopic neurodermatitis 01/23/2024 Cerebral aneurysm, nonruptured 01/23/2024 Gastro-esophageal reflux disease without esophag itis 01/23/2024 Knee pyogenic arthritis 01/23/2024 Methicillin susceptible Stap hylococcus aureus infection as the cause of diseases classified elsewhere 01/23/2024 Need for assistance with personal care 4 Personal history of malignant neoplasm of prosta te 01/23/2024 Staphylococcal arthritis of right knee 4 Moderate episode of recurrent major depressive d isorder 10/04/2023 Chronic insomnia 09/19/2023 Controlled substance agreement signed 03/03/2023 Neurodermatitis 09/16/2022 Status post revision of total replacement of rig ht knee 12/29/2021 Prostate cancer 07/08/2021 Infected prosthetic knee joint 12/17/2020 RLS (restless legs syndrome) 10/13/2020 Status post right knee replacement 09/08/2020 Artificial knee joint present 09/08/2020 Diastasis of rectus abdominis 04/26/2018 Osteoarthritis of both knees 02/06/2018 Bilateral primary osteoarthritis of knee 018 Chronic venous insufficiency 02/21/2017 GALE (obstructive sleep apnea) 01/05/2017 Overview (09/27/2024): History of sleep apnea, had repeat sleep study after weight loss, no longer needing treatment. Mary Abbasi PA-C, Family Medicine.....................09/27/2024 4:27 PM Family history of malignant neoplasm of prostate 11/16/2015 Hyperlipidemia 07/01/2015 Depression with anxiety 06/23/2015 Hypertension 06/23/2015 Resolved Problems Problem Noted Date Diagnosed Date Resolved Date Encounter for care or replac ement of suprapubic tube 01/29/2025 04/08/2025 Hematuria 12/24/2024 01/03/2025 Suicidal ideation 12/23/2024 01/03/2025 Edema, peripheral 11/26/2024 04/08/2025 Encounter for removal of per ipherally inserted central catheter (PICC) 11/26/2024 025 Low back pain 11/26/2024 01/03/2025 Malignant neoplasm 11/26/2024 Overview (11/26/2024): AI Summary: As of 10/04/24: The patient has a history of prostate adenocarcinoma, initially diagnosed in 2020, treated with cryoablation and radiation therapy on 08/25/2022, resulting in radiation cystitis, hematuria, and urinary obstruction requiring a suprapubic catheter. Hepatoma screening is ongoing, with the next scheduled for every 6 months. The patient also has a history of liver cirrhosis. 09/13/24: WBC 4.4 thou/cu mm 10/04/24: Hgb 10.3 g/dL 09/27/24: K 3.7 mmol/L 09/13/24: Plt 159 thou/cu mm 09/13/24: Total Protein 7.2 g/dL 09/27/24: Ca 8.6 mg/dL 03/12/24: PSA 0.02 ng/mL On meds: leuprolide (external) Recent encounter dx: 07/23/24: HOV - [facility] [place], [facility] 07/19/24: HOV - [facility], [facility] 07/18/24: Appointment - [facility] 06/24/24: [place] [facility] [place]IC[place] (from [facility]) 06/12/24: [place] Encounter [place] [facility] [place] 3, [place]ICINE (from [facility]) Recent studies: 04/22/24: XR RUG and VCUG by Deep Pires MD (from [place]) ... [+] HISTORY: 66-year-old male with history of prostate cancer status post radiation, recurrence in 2021 status post cryoablation. 12/26/23: mr prostate without and with iv contrast by Janice Salmon APRN, C.N.P., M.S.N. (from [facility]) ... [-] CLINICAL HISTORY: History of prostate cancer, [place] score: 7. 06/22/23: mr prostate without and with iv contrast by Grant Pace M.D., Ph.D. (from [facility]) ... [-] CLINICAL HISTORY: History of prostate cancer, Madeleine score: 7, Treatment history: External beam radiation therapy followed by percutaneous cryoablation in the right posterior peripheral zone on 08/25/2022 . 12/20/22: mr prostate without and with iv contrast by Grant Pace M.D., Ph.D. (from [facility]) ... [-] 1. No residual/recurrent tumor in the ablation zone. No new worrisome nodules in the prostate. 2. Negative for lymph node metastases. 3. Negative for bony metastases. ... [-] Negative for bony metastases. ... [-] Negative for lymph node metastases. ... [+] CLINICAL HISTORY: History of prostate cancer with previous external beam radiotherapy and recent ablation of recurrent tumor in the right peripheral zone. 08/25/22: mr pelvis ablation by Grant Pace M.D., Ph.D. (from [facility]) ... [-] Under direct US guidance, RxMP Therapeuticsth cryoneedle guides were placed and cryoneedles were placed into the right posterior prostate cancer. ... [+] These demonstrated good coverage of the right posterior prostate cancer. Recent notes: 10/04/24: Consult Notes - Consults by Anai Tineo PA-C (from [place]) ... [+] Osvaldo Ceja is a 69 year old male with a history of Liver Cirrhosis, Chronic Opioid Dependence, Prostate Cancer, Suprapubic Catheter in place, HTN, HLD, Obesity, Depression who is admitted s/p Removal of antibiotic spacer, right knee Revision right total knee arthroplasty. ... [+] Osvaldo Ceja is a 69 year old male with a history of Liver Cirrhosis, Chronic Opioid Dependence, Prostate Cancer, Suprapubic Catheter in place, HTN, HLD, Obesity, Depression who is admitted s/p Removal of antibiotic spacer, right knee ... [+] Hx Prostate Cancer ... [+] Pt with a hx of prostate adenocarcinoma, s/p cryoablation and radiation complicated by radiation cystitis and hematuria. ... [+] He has a suprapubic catheter in place due to the development of urinary obstruction following complications from prostate cancer treatment. 09/27/24: H&P - Preoperative Consultation by LAI Felix ... [+] ? Prostate cancer (HC) C61 ... [-] ? Family history of malignant neoplasm of prostate Z80.42 09/17/24: Progress Notes by Shonna Grant NP ... [+] Osvaldo Ceja is a 66 y.o. male with a history of hypertension, hyperlipidemia, depression, anxiety, anemia, prostate cancer with prior radiation, GALE on CPAP, obesity who initially presented for easy bruising. ... [+] 2) Prostate cancer ... [-] PMSA PET from 05/11/22 showed focal PMSA uptake in the right peripheral zone of the prostate, no metastatic disease. .. . [+] On June 28, 2022, he underwent MRI-guided biopsy of the right posterior prostate which confirmed prostatic adenocarcinoma with therapy associated changes, [place] 4 + 3 involving 5 of 11 cores ... [-] 08/25/22: MRI cryoablation for treatment of his right posterior prostate recurrent cancer. 08/27/24: History & Physical Note - Note by Quyen Mckinney (from [facility]) ... [+] Prostate cancer ... [-] ?C61 - Malignant neoplasm of prostate (ICD-10) 08/27/24: ED Documentation - [facility], WEAKNESS, 08/27/2024 by MARY ABBASI ... [+] has underlying prostate cancer and is undergoing hyperbaric treatment for hematuria, has chronic bleeding and inflammation from complications. ... [+] Prostate cancer C61 ... [+] Malignant neoplasm of prostate (ICD-10) Liver cirrhosis K74.60 Opioid dependence 11/26/2024 01/03/2025 Sacroiliitis, not elsewhere classified 11/26/2024 04/08/2025 Suspected urinary tract infection 11/26/2024 04/08/2025 Heart failure 11/26/2024 01/03/2025 Overview (11/26/2024): AI Summary: As of 10/04/24: The patient has a history of heart failure with preserved ejection fraction (HFpEF), first documented on 02/29/2024, with multiple hospitalizations since then for acute exacerbations. The patient also has a history of congestive heart failure, diabetes, gastroesophageal reflux disease with esophagitis, hypertension, liver disease, and obesity. Treatment includes furosemide, and there is mention of treatment changes for HFpEF on 03/06/2024 and 03/24/2024, though specifics are not provided. 03/01/24: LVEF 72 % 10/04/24: BP 142/48 10/04/24: HR 76.0 /min On meds: furosemide, hyoscyamine Recent encounter dx: 08/27/24: Discharged Inpatient - [facility]-MEDSURG/CCU (from [facility]) 04/23/24: Appointment - [facility] 03/28/24: Appointment - [facility] 03/17/24: Discharge - [facility], [facility], [id number], [id number] / 01 03/11/24: Support OP Encounter - [facility] Recent studies: 03/01/24: ECHO TRANSTHORACIC COMPLETE by Gabby Vogel NP, Rylee Gonsalez, [facility] ... [-] Indication for study: Heart Failure Cardiac Rhythm: Normal sinus.Study quality: Technically limited. Recent notes: 10/04/24: Consult Notes - Consults by Anai Tineo PA-C (from [place]) ... [+] Congestive heart failure (H) Diabetes (H) Gastroesophageal reflux disease with esophagitis History of blood transfusion Hypertension Liver disease Obese 09/02/24: Progress Notes - Nursing Notes by LAI Felix ... [+] ? Acute heart failure with preserved ejection fraction (HC) I50.31 08/28/24: Disch Summary - [facility], FILEMON ANTUNEZDM, 08/28/2024 by MARY ABBASI ... [+] known problem, follows with urologist (7) Heart failure with preserved ejection fraction: Chronic 08/27/24: History & Physical Note - Note by Quyen Mckinney (from [facility]) ... [+] Heart failure with preserved ejection fraction ... [-] ?I50.30 - Unspecified diastolic (congestive) heart failure (ICD-10) ... [+] (7) Heart failure with preserved ejection fraction: 08/27/24: H&P - [place] MD, 08/27/2024 by MARY ABBASI ... [+] Heart failure with preserved ejection fraction 150.30 ... [+] Unspecified diastolic (congestive) heart failure (ICD-10) Alcohol use disorder F10.90 Hyperammonemia 06/13/2024 01/03/2025 Radiation cystitis 06/07/2024 Acute cystitis with hematuria 06/07/2024 09/27/2024 Urethral stricture 06/06/2024 5 Melena 06/03/2024 09/27/2024 Acute blood loss anemia 06/03/202409/18 Depression 05/31/2024 09/27/2024 Urinary retention 03/19/2024 09/27/2024 Acute hepatic encephalopathy 03/17/2024 09/27/2024 OMAR (acute kidney injury) 03/17/2024 Acute on chronic blood loss anemia 03/01/2024 09/27/2024 GI bleed 03/01/2024 09/27/2024 Acute heart failure with pre served ejection fraction 02/29/2024 09/27/2024 Current drinker 02/19/2024 01/03/2025 Ureter filling defect 01/29/20242024 Lymphedema, not elsewhere classified 01/23/2024 04/08/2025 Encounter for other orthopedic aftercare 01/23/2024 04/08/2025 Generalized muscle weakness 01/23/2024 04/08/2025 Hydronephrosis 01/23/2024 01/03/2025 Other fatigue 01/23/2024 01/03/2025 Repeated falls 01/23/2024 04/08/2025 Acute kidney injury 01/15/2024 09/27/19 25 Infection and inflammatory r eaction due to internal right knee prosthesis, initial encounter 01/14/2024 01/14/2024 Class 3 severe obesity with body mass index (BMI) of 40.0 to 44.9 in adult 01/14/2024 Infection and inflammatory r eaction due to internal right knee prosthesis, subsequent encounter 01/14/2024 09/27/2024 Thrombocyte disorder 10/04/2023 025 Moderate alcohol use disorde r, in early remission 10/04/2023 11/23/2024 Type 2 diabetes mellitus wit hout complication, without long-term current use of insulin 10/04/2023 12/25/2023 Acute respiratory failure, u nspecified whether with hypoxia or hypercapnia 07/05/202306/18 Depression 03/07/2023 09/27/2024 Pancytopenia 03/05/2023 09/27/2024 Urge incontinence of urine 10/31/2022 0 09/27/2024 Rectal hemorrhage 08/15/2022 04/08/2025 Venous ulcer of ankle, left 2022 03/05/2023 Chronic pain of right knee 12/29/2021 0 04/08/2025 Hypokalemia 11/10/2021 03/05/2023 Cognitive impairment 11/10/2021 023 Encephalopathy due to severe acute respiratory syndrome coronavirus 2 (SARS-CoV-2) 11/08/2021 03/05/2023 Pneumonia due to COVID-19 virus 11/08/2021 12/25/2023 Acute respiratory distress 11/07/2021 0 03/05/2023 Thrombocytopenia 11/07/2021 09/28/2024 Anemia 11/07/2021 03/05/2023 Weight gain 08/17/2021 03/05/2023 Prediabetes 04/02/2021 12/21/2023 Vitamin D deficiency 04/02/2021 025 Morbid obesity with BMI of 40.0-44.9, adult 02/24/2021 11/23/2024 Weight gain 02/24/2021 08/07/2021 Bacteremia due to Staphylococcus aureus 12/16/2020 03/05/2023 Troponin level elevated 12/14/202007/20 Cellulitis of right lower extremity 02/20/2020 03/05/2023 Venous stasis dermatitis of left lower extremity 02/17/2020 03/05/2023 Dermatitis herpetiformis 11/07/201909/2019 Controlled substance agreement terminated 06/10/2019 02/20/2023 Overview (04/23/2021): Ventral hernia without obstr uction or gangrene 01/07/2019 03/05/2023 Controlled substance agreement terminated 07/19/2018 06/10/2019 Precordial pain 07/13/2018 03/05/2023 Costochondritis, acute 07/13/201809/03 Chronic diarrhea 04/26/2018 09/03/2020 Controlled type 2 diabetes m ellitus without complication, without long-term current use of insulin 02/06/2018 01/04/2019 Osteoarthritis of knee 02/06/201812/24 Incarcerated ventral hernia 07/07/2017 09/27/2024 Pre-diabetes 09/26/2016 02/06/2018 Benign localized hyperplasia of prostate 11/16/2015 04/08/2025 Elevated fasting blood sugar 06/25/2015 09/26/2016 Morbid obesity with BMI of 40.0-44.9, adult 06/23/2015 08/07/2021 Screening for diabetes mellitus 06/23/2015 06/25/2015 Annual physical exam 06/22/2015 015 Major depressive disorder, s carlton episode, mild 12/29/2011 09/27/2024 Overview (12/01/2023): Mild major depression, single episode Polyp of colon 03/05/2023 Type 2 diabetes mellitus 09/2021 BRBPR (bright red blood per rectum) 03/05/2023 Colitis 03/05/2023 Depression 03/05/2023 Encounters Date Type Department Care Team Description 04/08/2025 12:55 PM CDT Office Visit [facility] [address] [place] [address] Nilsa Serna PA Infection 04/08/2025 Orders Only [facility] [address] [place] [address] Yumiko Molina PA <No scans attached> 04/07/2025 8:10 AM CDT Office Visit [facility] [address] [place] [address] Mary Abbasi PA Preoperative Exam (GWJ-Qsietz-7/4/25-Mahsa Varma); Serious Illness Conversation 04/07/2025 Telephone [facility] [place] [facility] [place] [address] [place] [phone] Shonna Grant NP Appointment 04/07/2025 Travel 04/03/2025 1:30 PM CDT Telemedicine [facility] [address] [place] [address] Reshma Gonsalez, [facility] Visit; Telehealth 04/03/2025 Travel 04/02/2025 7:02 AM CDT - 04/02/2025 11:59 PM CDT Hospital Encounter [facility] [address] [place] [address] Praveen Pedersen PA Nonspecific low back pain 04/01/2025 11:00 AM CDT Nurse/Clinic Staff Only [facility] [address] [place] [address] Infusion Therapy (2nd feraheme) 04/01/2025 Telephone [facility] [address] [place] [address] Amira Vega NP Refill Request (Buspirone HCL 5mg tabs) 04/01/2025 Travel 03/31/2025 Refill [facility] [address] [place] [address] Mary Abbasi PA Refill Request (PANTOPRAZOLE 40MG, BUSPIRONE HCL 5MG TABS) 03/30/2025 Refill [facility] [address] [place] [address] Jennifer Hester NP Refill Request (Buspirone) 03/27/2025 1:30 PM CDT Office Visit [facility] [address] [place] [address] Alexandria Segovia MD Consult (UTI associated with indwelling urethral catheter) 03/27/2025 Travel 03/25/2025 10:00 AM CDT Nurse/Clinic Staff Only [facility] [address] [place] [address] Infusion Therapy (1st Feraheme) 03/25/2025 Travel 03/19/2025 9:00 AM CDT Office Visit [facility] [address] [place] [address] Reshma Gonsalez, [facility] Visit 03/19/2025 Travel 03/17/2025 Telephone [facility] [address] [place] [address] Shonna Grant NP Appointment 03/13/2025 9:30 AM CDT Telemedicine [facility] [address] [place] [address] Amira Vega NP Telehealth; Medication Management 03/13/2025 Telephone [facility] [address] [facility] [place] [address] Amira Vega NP Appointment (appt scheduling) 03/12/2025 Travel 03/07/2025 Telephone [facility] [address] [place] [address] Mary Abbasi PA Follow Up; Medication Management 03/06/2025 8:51 AM CDT - 03/06/2025 11:59 PM CDT Hospital Encounter [facility] [address] [place] [address] Dyana Stein, ASSOCIATE STORE DIRECTOR Depression with anxiety; Severe recurrent major depression without psychotic features (HC) 03/05/2025 8:42 AM CDT - 03/05/2025 11:59 PM CDT Hospital Encounter [facility] [address] [place] [address] Dyana Stein ASSOCIATE STORE DIRECTOR Depression with anxiety; Severe recurrent major depression without psychotic features (HC) 03/05/2025 Travel 03/05/2025 Telephone [facility] [address] [place] [address] Mary Abbasi PA Follow Up 03/04/2025 10:30 AM CDT Office Visit [facility] [address] [place] [address] Mary Abbasi PA Preoperative Exam (Cataract surgery-left eye-[facility]-03/10/25-Dr. Mills) 03/04/2025 9:00 AM CDT - 03/04/2025 11:59 PM CDT Hospital Encounter [facility] [address] [place] [address] Dyana Stein ASSOCIATE STORE DIRECTOR Depression with anxiety; Severe recurrent major depression without psychotic features (HC) 03/04/2025 Refill [facility] [address] [place] [address] Mary Abbasi PA Refill Request (Ferrous Sulfate) 03/03/2025 8:48 AM CDT - 03/03/2025 11:59 PM CDT Hospital Encounter [facility] [address] [facility] [place] [address] Dyana Stein, ASSOCIATE STORE DIRECTOR Depression with anxiety; Severe recurrent major depression without psychotic features (HC) 03/03/2025 Travel 02/28/2025 9:00 AM CDT - 02/28/2025 11:59 PM CDT Hospital Encounter [facility] [address] [place] [address] Dyana Stein, ASSOCIATE STORE DIRECTOR Depression with anxiety; Severe recurrent major depression without psychotic features (HC) 02/28/2025 Travel 02/27/2025 8:50 AM CDT - 02/27/2025 11:59 PM CDT Hospital Encounter [facility] [address] [place] [address] Dyana Stein, ASSOCIATE STORE DIRECTOR Depression with anxiety; Severe recurrent major depression without psychotic features (HC) 02/26/2025 8:56 AM CDT - 02/26/2025 11:59 PM CDT Hospital Encounter [facility] [address] [facility] [place] [address] Dyana Stein, ASSOCIATE STORE DIRECTOR Depression with anxiety; Severe recurrent major depression without psychotic features (HC) 02/26/2025 Travel 02/25/2025 8:56 AM CDT - 02/25/2025 11:59 PM CDT Hospital Encounter [facility] [address] [place] [address] Dyana Stein, ASSOCIATE STORE DIRECTOR Depression with anxiety; Severe recurrent major depression without psychotic features (HC) 02/24/2025 8:48 AM CDT - 02/24/2025 11:59 PM CDT Hospital Encounter [facility] [address] [facility] [place] [address] Dyana Stein, ASSOCIATE STORE DIRECTOR Depression with anxiety; Severe recurrent major depression without psychotic features (HC) 02/24/2025 Travel 02/21/2025 8:58 AM CDT - 02/21/2025 11:59 PM CDT Hospital Encounter [facility] [address] [place] [address] Dyana Stein, ASSOCIATE STORE DIRECTOR Depression with anxiety; Severe recurrent major depression without psychotic features (HC) 02/21/2025 Travel 02/20/2025 8:54 AM CDT - 02/20/2025 11:59 PM CDT Hospital Encounter [facility] [address] [place] [address] Dyana Stein, ASSOCIATE STORE DIRECTOR Depression with anxiety; Severe recurrent major depression without psychotic features (HC) 02/19/2025 8:56 AM CDT - 02/19/2025 11:59 PM CDT Hospital Encounter [facility] [address] [place] [address] Dyana Stein, ASSOCIATE STORE DIRECTOR Depression with anxiety; Severe recurrent major depression without psychotic features (HC) 02/19/2025 Travel 02/18/2025 8:52 AM CDT - 02/18/2025 11:59 PM CDT Hospital Encounter [facility] [address] [place] [address] Dyana Stein, ASSOCIATE STORE DIRECTOR Depression with anxiety; Severe recurrent major depression without psychotic features (HC) 02/17/2025 8:51 AM CDT - 02/17/2025 11:59 PM CDT Hospital Encounter [facility] [address] [place] [address] Dyana Stein, ASSOCIATE STORE DIRECTOR Depression with anxiety; Severe recurrent major depression without psychotic features (HC) 02/17/2025 Travel 02/13/2025 8:53 AM CDT - 02/13/2025 11:59 PM CDT Hospital Encounter [facility] [address] [place] [address] Alexus Peace, JUANJO Depression with anxiety (Primary Dx); Severe recurrent major depression without psychotic features (HC); Alcohol use disorder in remission 02/13/2025 Travel 02/12/2025 2:00 PM CDT Telemedicine [facility] [address] [place] [address] Amira Vega NP Telehealth; Medication Management 02/11/2025 Orders Only [facility] Scanner 1 scan: (1-Ord) TC ORTHO, LT KNEE CORTICOSTEROID INJ, 02/11/2025 02/05/2025 10:00 AM CDT Telemedicine [facility] [address] [place] [address] Reshma Gonsalez, [facility] Visit; Telehealth 02/05/2025 Travel 02/04/2025 Telephone [facility] [address] [place] [address] Hermelinda Nguyen RN 7 day phone follow up 02/03/2025 10:30 AM CDT - 02/03/2025 11:59 PM CDT Hospital Encounter [facility] [address] [place] [address] Jovi Adame MD Otorrhea, right; Lesion of external ear canal, right 02/03/2025 Refill [facility] [address] [place] [address] Mary Abbasi PA Refill Request; pantorazole 02/02/2025 Travel 01/31/2025 Patient Outreach [facility] [address] [place] [address] Shawna Kurtz, RN Primary RN Care Management (Lace 62); Hospital F/U 01/28/2025 9:39 AM CDT Anesthesia Event [facility] [address] [place] [address] Batsheva Anna MD 01/28/2025 7:17 AM CDT - 01/30/2025 4:10 PM CDT Hospital Encounter [facility] [address] [place] [address] Jose Luis Alberto MD 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 01/28/25, device is MRI up to 3 JAKE compatible (Primary Dx); Cerebral aneurysm (HC) Discharge Disposition: Home Self Care 01/27/2025 10:24 AM CDT - 01/27/2025 11:59 PM CDT Hospital Encounter [facility] [address] [place] [address] Albania Santos NP Antiplatelet or antithrombotic long-term use 01/27/2025 Telephone [facility] [address] [place] [address] Mary Abbasi PA Lab (UA) 01/27/2025 Telephone [facility] [address] [place] [address] Albania Santos NP Results 01/27/2025 Travel 01/23/2025 9:00 AM CDT Office Visit [address] [address] Albania Wise MD Consult (Needs fci plan for recurrent complicated, multi-drug resistant UTI ll Suprapubic Cath ) 01/23/2025 Travel 01/20/2025 Refill [facility] [address] [place] [address] Mary Abbasi PA Refill Request (tamsulosin) 01/19/2025 Refill [facility] [address] [place] [address] Amira Vega NP Refill Request (Duloxetine) 01/16/2025 2:15 PM CDT Office Visit [facility] [address] [place] [address] Jovi Adame MD Recheck (Otorrhea, right /Ceruminosis, right ) 01/16/2025 Travel 01/15/2025 10:00 AM CDT Telemedicine [facility] [address] [place] [address] Reshma Gonsalez, [facility] Visit; Telehealth 01/10/2025 Medical Messaging [facility] [address] [place] [address] Mary Abbasi PA Urology from Last 3 Months Immunizations Immunization Administration Dates Next Due Tdap 10/03/2023,05/13/2013 Family History Medical History Relation Name Comments Cancer-prostate Brother Alcoholism Father cirrhosis Heart Disease Father Osteoporosis Mother Relation Name Status Comments Brother Father Mother Social History Tobacco Use Types Packs/Day Years Used Date Smoking Tobacco: Former Cigarettes Cigars Smokeless Tobacco: Never Tobacco Cessation:Counseling Given: No Comments:four years smoke free Passive Exposure Comments:quit 18 years ago Alcohol Use Standard Drinks/Week Comments Not Currently 0 (1 standard drink = 0.6 oz pure alcohol) 03/02/24 Fomer alcoholic. Last drink 08/12/22. PHQ-2 Answer Date Recorded PHQ-2 TOTAL SCORE 3 03/12/2025 Social Connections Answer Date Recorded Do you often feel lonely or isolated from those around you? 4 01/29/2025 Financial Resource Strain Answer Date R ecorded Difficulty of Paying Living Expenses 3 01/29/2025 Difficulty of Paying Living Expenses Not on file 01/29/2025 Food Insecurity Answer Date Recorded Do you worry your food will run out before you are able to buy more? 1 01/29/2025 Transportation Needs Answer Date Record ed Does lack of transportation keep you from medica l appointments? 1 01/29/2025 Does lack of transportation keep you from work, meetings or getting things that you need? 1 01/29/2025 Housing Stability Answer Date Recorded What is your housing situation today? 1 01/29/2025 Interpersonal Safety Answer Date Record ed Are you being hit, kicked, p ushed or yelled at (see row info)? No 02/13/2025 Interpersonal Safety Abuse 12 - 18 Not on file 02/13/2025 Interpersonal Safety Ambulatory Vulnerability No t on file 02/13/2025 Utilities Answer Date Recorded Do you have trouble paying f or utilities (for example, heat, electricity, water, phone)? 1 01/29/2025 Sex and Gender Information Value Date Recorded Sex Assigned at Not on file Legal Sex Male 6:43 AM CLOTHING CUTTER Gender Identity Not on file Sexual Orientation Not on file Obstetrics History Last Filed Vital Signs Vital Sign Reading Time Taken Comments Blood Pressure 120/74 04/08/2025 12:59 PM CDT Pulse 79 04/08/2025 12:59 PM CDT Temperature 36.6 C (97.9 F) 04/01/2025 10:56 AM CDT Respiratory Rate 18 02/13/2025 10:24 AM CDT Oxygen Saturation 95% 04/08/2025 12:59 PM CDT Inhaled Oxygen Concentration - - Weight 125.6 kg (277 lb) 04/07/2025 8:11 AM CDT Height 177.8 cm (5' 10) 04/07/2025 8:11 AM CDT Body Mass Index 39.75 04/07/2025 8:11 AM CDT Plan of Treatment Upcoming Encounters Date Type Department Care Team (Latest Contact Info) Description 04/11/2025 12:15 PM CDT Telemedicine [facility] [address] [place] [address] Alexandria Maloney, [facility] [address] [place] [address] 04/18/2025 10:30 AM CDT Telemedicine [facility] [address] [place] [address] Amira Vega, JUANJO [address] [place] [address] 04/21/2025 8:55 AM CDT Hospital Encounter [facility] [address] [place] [address] Alyson Varma MD [address] [address] 04/21/2025 8:55 AM CDT - 04/21/2025 9:40 AM CDT Surgery [facility] [address] [place] [address] Alyson Varma MD [address] [address] ESOPHAGOGASTRODUODENOSCOPY 05/13/2025 12:45 PM CDT Office Visit [facility] [place] [facility] [place] [address] [place] [address] Shonna Grant, JUANJO [address] [place], [place] [address] 08/28/2025 7:00 AM CLOTHING CUTTER Appointment [facility] [address] [place] [address] 09/19/2025 8:45 AM CLOTHING CUTTER Orders Only [facility] [address] [place] [address] Lab, [facility] 09/25/2025 8:45 AM CLOTHING CUTTER Office Visit [facility] [address] [place] [phone] Alexandria Segovia MD [address] [place], [place] [address] Scheduled Procedures Name Priority Associated Diagnoses Date/Ti me ESOPHAGOGASTRODUODENOSCOPY Tier 4: > 90 days recheck on varices 04/21/2025 8:55 AM CDT Health Maintenance Due Date Last Done Comments Pneumococcal series for age 50+ (1 of 2 - PCV) 1976 Zoster (shingles) series for age 50+ (1 of 2) 1976 RSV vaccine for adults or (1 - Risk 60-74 years 1-dose series) 2017 COVID-19 vaccine series (2 - Pfizer risk series) 12/30/2020 12/09/2020 Medicare Wellness for age 65+ 03/03/2024 03/03/2023 Influenza Vaccine (#1) 2025 Depression screening for age 12+ 03/12/2026 03/12/2025, 02/12/2025, 01/01/2024, Additional history exists BMI (ht and wt on same day) for age 18+ 04/07/2026 04/07/2025, 03/04/2025, 01/02/2025, Additional history exists Colonoscopy through age 75 03/28/202703/28, 06/05/2018, 03/17/2008 (Completed outside of [facility]) Lipids for age 45-75 03/04/2030 03/04/2025, 03/01/2024, 02/27/2023, Additional history exists Tetanus booster 10/03/2033 10/03/2023, 05/13/2013 Hepatitis C screening for age 18-79 Completed 09/23/2016 AAA screening age 65-74 Completed 11/22/19, 07/31/2024, 01/07/2019, Additional history exists Hepatitis B series for 19+ Aged Out N o longer eligible based on patient's age to complete this topic Goals Goal Patient Goal Type Associated Problems Recent Progress Patient-Stated? Author Autogenera zoraida Goal Care Plan Autogenerated Problem No Mychart, Provider Medical Devices Implanted Type Area Hair Baler Device Identifier Shelf Expiration Date Model / Serial / Lot Mesh Ventral [address]in Ventral[address] St W/Echo Ps Cir - [id number] Implanted:Qty: 1 on 08/06/2018 by Chavez Trujillo DO at [facility] N/A: Abdomen [employer] 04/14/2020 [id number] / / [id number] Triathlon Posterior Stabilized Femoral #6 Rt Ps Implanted:Qty: 1 on 09/08/2020 by Jose Armando Vega MD at [facility] Right: Knee [employer] 07/09/2024 [id number] / / [id number] Triathlon Tritanium Symmetric Patella S36mm 10mm Implanted:Qty: 1 on 09/08/2020 by Jose Armando Vega MD at [facility] Right: Knee [employer] 02/05/2024 [id number]-[id number]-360 / / [id number] Triathlon Tritanium Tibial Component #5 Implanted:Qty: 1 on 09/08/2020 by Jose Armando Vega MD at [facility] Right: Knee [employer] 04/04/2025 5536-[id number] / / [id number] Triathlon X3 Tibial Bearing Insert Ps 5 9mm Implanted:Qty: 1 on 09/08/2020 by Jose Armando Vega MD at [facility] Right: Knee [employer] 12/04/2023 5532-G-509 / / [id number] - [id number], Triathlon X3 Tibial Bearing Insert-Ps Implanted:Qty: 1 on 12/16/2020 by David Story MD at [facility] Right: Knee [employer] 09/25/2024 [id number]-G-[id number] -[id number] / / [id number] Procedures Procedure Name Priority Date/Time Associated Diagnosis Comments AEROBIC BACTERIAL CULTURE, STAIN Routine 04/07/2025 9:07 AM CDT Urethral discharge CBC WITH AUTO DIFFERENTIAL Routine 04/07/2025 8:54 AM CDT Iron deficiency anemia due to chronic blood loss FERRITIN Routine 04/07/2025 8:54 AM CDT Iron deficiency anemia due to chronic blood loss IRON PLUS IRON BINDING CAP Routine 04/07/2025 8:54 AM CDT Iron deficiency anemia due to chronic blood loss PSA TOTAL Routine 04/07/2025 8:54 AM CDT Prostate cancer (HC) COMP METABOLIC PANEL Routine 04/07/2025 8:54 AM CDT Pre-op exam MR SPINE LUMBAR WO Routine 04/02/2025 7: 39 AM CDT Nonspecific low back pain PSA TOTAL Routine 03/27/2025 2:01 PM CDT Prostate cancer (HC) FERRITIN Routine 03/04/2025 11:26 AM CDT IRON PLUS IRON BINDING CAP Routine 03/04/2025 11:26 AM CDT LIPID PANEL W REFLEX MEASURED LDL Routine 03/04/2025 11:26 AM CDT Mixed hyperlipidemia COMP METABOLIC PANEL Routine 03/04/2025 11:26 AM CDT Hyperglycemia CBC WITH AUTO DIFFERENTIAL Routine 03/04/2025 11:26 AM CDT Pre-op exam HEMOGLOBIN A1C Routine 03/04/2025 11:26 AM CDT Hyperglycemia COMPLIANCE DRUG ANALYSIS Routine 03/04/2025 11:22 AM CDT Therapeutic drug monitoring SCAN-OPERATIVE/PROCE DURE REPORT 02/11/2025 12:[address] TEMPORAL BONES WO Routine 02/03/2025 10:54 AM CDT Otorrhea, right Lesion of external ear canal, right HEMOGLOBIN Early AM 01/30/2025 7:18 AM CDT TSH Early AM 01/30/2025 7:18 AM CDT HEMOGLOBIN Early AM 01/29/2025 7:[address] PELVIS WO STAT 01/28/2025 2:24 PM CDT HEMOGLOBIN CATALINA 01/28/2025 12:06 PM CDT IR ANGIO NEURO-INTERVENTIONAL Routine 01/28/2025 11:10 AM CDT Cerebral aneurysm (HC) HCHG ACTIVATED CLOTTING TM CV Timed 01/28/2025 10:55 AM CDT HCHG ACTIVATED CLOTTING TM CV Timed 01/28/2025 10:16 AM CDT ENDOTRACHEAL TUBE Routine 01/28/2025 10: 07 AM CDT ENDOTRACHEAL TUBE Routine 01/28/2025 10: 07 AM CDT ENDOTRACHEAL TUBE Routine 01/28/2025 10: 07 AM CDT HCHG KIT PR5 Routine 01/28/2025 9:31 AM CDT HCHG DRSG PR5 Routine 01/28/2025 9:31 AM CDT [facility] DRSG PR1 Routine 01/28/2025 9:31 AM CDT [facility] TUBING PR20 Routine 01/28/2025 9:31 AM CDT [facility] TUBING PR1 Routine 01/28/2025 9:31 AM CDT [facility] ANES ARTERIAL CATH FOR SAMPLE MONITOR TRANS Routine 01/28/2025 9:31 AM CDT TYPE & SCREEN STAT 01/28/2025 8:44 AM CDT SCAN-CARDIAC STRIP 01/28/2025 12 :00 AM CDT ASPIRIN THERAPY EFFECT HCT/PLT Timed 01/27/2025 10:37 AM CDT Antiplatelet or antithrombotic long-term use ASPIRIN THERAPY EFFECT TEST Timed 01/27/2025 10:37 AM CDT Antiplatelet or antithrombotic long-term use ASPIRIN THERAPY EFFECT Today 01/27/2025 10:37 AM CDT Antiplatelet or antithrombotic long-term use P2Y12 INHIBITION Today 01/27/2025 10:3 7 AM CDT Antiplatelet or antithrombotic long-term use PATH TISSUE EXAM Routine 01/16/2025 2:15 PM CDT Otorrhea, right Lesion of external ear canal, right CT ABDOMEN PELVIS W STAT 11/21/2024 1 1:31 AM [employer]ING C[employer]TER Cirrhosis of liver with ascites, unspecified hepatic cirrhosis type (HC) COLONOSCOPY 03/28/2022 7:27 AM CDT ANTI HCV Routine 09/23/2016 8:24 AM CLOTHING CUTTER Need for hepatitis C screening test from Last 3 Months or Most Recently Relevant to Health Maintenance Results * IRON PLUS IRON BINDING CAP (04/07/2025 8:54 AM CDT) Only the most recent of2 resultswithin the time period is included. [facility] IRON, TOTAL 58 50 - 180 mcg/dL [facility] IRON BINDING CAPACITY 285 250 - 425 mcg/dL (calc) [facility] % SATURATION 20 20 - 48 % (calc) [facility] Blood BLOOD SPECIMEN / Unknown 04/07/2025 8:54 AM CDT 04/07/2025 8:55 AM CDT Mary HOYT CHEMISTRY Final Resu lt makerist [facility] [address] [place] [address], [facility] [address] [place] [address] * (ABNORMAL) CBC AND DIFFERENTIAL (04/07/2025 8:54 AM CDT) Only the most recent of2 resultswithin the time period is included. [facility] WHITE BLOOD CELL COUNT 15.6(H) 3.8 - 10.8 Thousand/ uL [facility] RED BLOOD CELL COUNT 4.64 4.20 - 5.80 Million/u L [facility] HEMOGLOBIN 14.2 13.2 - 17.1 g/dL [facility] HEMATOCRIT 43.9 38.5 - 50.0 % [facility] MCV 94.6 80.0 - 100.0 fL [facility] MCH 30.6 27.0 - 33.0 pg [facility] MCHC 32.3 32.0 - 36.0 g/dL [facility] Comment: For adults, a slight decrease in the calculated MCHC value (in the range of 30 to 32 g/dL) is most likely not clinically significant; however, it should be interpreted with caution in correlation with other red cell parameters and the patient's clinical condition. RDW 17.1(H) 11.0 - 15.0 % [facility] PLATELET COUNT 137(L) 140 - 400 Thousand/ uL [facility] MPV 9.5 7.5 - 12.5 fL [facility] ABSOLUTE NEUTROPHILS 13,853(H) 1,500 - 7,800 cells/uL [facility] ABSOLUTE LYMPHOCYTES 343(L) 850 - 3,900 cells/uL [facility] ABSOLUTE MONOCYTES 1,170(H) 200 - 950 cells/uL [facility] ABSOLUTE EOSINOPHILS 172 15 - 500 cells/uL [facility] ABSOLUTE BASOPHILS 62 0 - 200 cells/uL [facility] NEUTROPHILS 88.8 % [facility] LYMPHOCYTES 2.2 % [facility] MONOCYTES 7.5 % [facility] EOSINOPHILS 1.1 % [facility] BASOPHILS 0.4 % [facility] Blood BLOOD SPECIMEN / Unknown 04/07/2025 8:54 AM CDT 04/07/2025 8:55 AM CDT Mary HOYT HEMATOLOGY Final Resu lt [facility] [address] [place] [address], [facility] [address] [place] [address] * PSA TOTAL (04/07/2025 8:54 AM CDT) Only the most recent of2 resultswithin the time period is included. PSA, TOTAL <0.04 < OR = 4.00 ng/mL [facility] Comment: The total PSA value from this assay system is standardized against the WHO standard. The test result will be approximately 20% lower when compared to the equimolar-standardized total PSA (Farooq Codie). Comparison of serial PSA results should be interpreted with this fact in mind. This test was performed using the [employer] chemiluminescent method. Values obtained from different assay methods cannot be used interchangeably. PSA levels, regardless of value, should not be interpreted as absolute evidence of the presence or absence of disease. Blood BLOOD SPECIMEN / Unknown 04/07/2025 8:54 AM CDT 04/07/2025 8:55 AM CDT Alexandria Segovia MD CHEMISTRY Final Result Performing Organization Address [facility] Co de Phone Number makerist [address] [phone], [facility] [address] [place] [phone] * FERRITIN (04/07/2025 8:54 AM CDT) Only the most recent of2 resultswithin the time period is included. FERRITIN 260 24 - 380 ng/mL [facility] Blood BLOOD SPECIMEN / Unknown 04/07/2025 8:54 AM CDT 04/07/2025 8:55 AM CDT Mary HOYT CHEMISTRY Final Resu lt Performing Organization Address [facility] Co de Phone Number makerist [address] [phone], [address] [address] * COMP METABOLIC PANEL (04/07/2025 8:54 AM CDT) Only the most recent of2 resultswithin the time period is included. GLUCOSE 95 65 - 99 mg/dL [facility] Comment: Fasting reference interval UREA NITROGEN (BUN) 24 7 - 25 mg/dL [facility] CREATININE 1.10 0.70 - 1.35 mg/dL [facility] EGFR 74 > OR = 60 mL/min/1. 73m2 [facility] BUN/CREATININE RATIO SEE NOTE: 6 - 22 (calc) [facility] Comment: Not Reported: BUN and Creatinine are within reference range. SODIUM 139 135 - 146 mmol/L [facility] POTASSIUM 4.5 3.5 - 5.3 mmol/L [facility] CHLORIDE 105 98 - 110 mmol/L [facility] CARBON DIOXIDE 26 20 - 32 mmol/L [facility] CALCIUM 9.5 8.6 - 10.3 mg/dL [facility] PROTEIN, TOTAL 6.9 6.1 - 8.1 g/dL [facility] ALBUMIN 3.7 3.6 - 5.1 g/dL [facility] GLOBULIN 3.2 1.9 - 3.7 g/dL (calc) [facility] ALBUMIN/GLOBULIN RATIO 1.2 1.0 - 2.5 (calc) [facility] BILIRUBIN, TOTAL 0.9 0.2 - 1.2 mg/dL [facility] ALKALINE PHOSPHATASE 93 35 - 144 U/L [facility] AST 25 10 - 35 U/L [facility] ALT 29 9 - 46 U/L [facility] Blood BLOOD SPECIMEN / Unknown 04/07/2025 8:54 AM CDT 04/07/2025 8:55 AM CDT Mary HOYT CHEMISTRY Final Resu lt [facility] [address] [place] [address], [facility] [address] [place] [address] * MR SPINE LUMBAR WO (04/02/2025 7:39 AM CDT) Anatomical Region Laterality Modality Spine, LUMBAR SPINE Magnetic Res onance 04/02/2025 2:36 PM CDT Narrative 04/02/2025 2:36 PM CDT For Patients: As a result of the Century Cures Act, medical imaging exams and procedure reports are released immediately into your electronic medical record. You may view this report before your referring provider. If you have questions, please contact your health care provider. Indication: Nonspecific low back pain Technique: Multiplanar, multisequence, MRI of the lumbar spine, obtained without contrast. Comparison: MRI lumbar spine 11/14/2022 Findings: Diffusely decreased T1//T2 marrow signal throughout the included lower thoracic spine extending down to L3, with more heterogeneous scattered regions of decreased marrow signal throughout the remaining lumbar spine and included bony pelvis. This is new/significantly progressed relative to 11/14/2022. Partially visualized fractures of the bilateral sacral ala and S3 body. No other recent fracture is identified. Preserved lumbar lordosis. Trace retrolisthesis at L1-2. Conus medullaris terminates at T12-L1. Bilateral renal cysts. Degenerative changes/bridging osteophytes at the included SI joints. T12-L1, L1-L2, L2-L3: No neural foraminal or spinal canal stenosis. L3-L4: Mild disc bulge, left asymmetric facet arthropathy. No neural foraminal or spinal canal stenosis. L4-L5: Mild disc bulge, moderate right and severe left facet arthropathy. No neural foraminal stenosis. Right lateral recess narrowing contacting the descending right L5 nerve root, without central spinal canal stenosis. L5-S1: Diffuse disc-osteophyte complex, mild left and severe right facet arthropathy. No left, mild-moderate right neural foraminal narrowing. Right lateral recess narrowing contacting the descending right S1 nerve root, without central spinal canal stenosis. Impression: 1. Diffusely decreased T1/T2 marrow signal throughout the visualized lower thoracic and upper lumbar spine, as well as scattered throughout the lower lumbar spine and included bony pelvis, new/significantly progressed relative to 11/14/2022. 2. While nonspecific, neoplastic process/metastatic disease are among the differential considerations. Clinical correlation advised. Postcontrast imaging could be obtained for further characterization. 3. Partially visualized fractures of the bilateral sacral ala and S3 body. 4. At L4-L5, right lateral recess narrowing contacting the descending right L5 nerve root. 5. At L5-S1, mild-moderate right neural foraminal narrowing, and right lateral recess narrowing contacting the descending right S1 nerve root. Dictated by Belinda Ann MD @ 04/02/2025 2:36:57 PM (Electronically Signed) Procedure Note Belinda Ann, DO - 04/02/2025 For Patients: As a result of the Cures Act, medical imagingexams and procedure reports are released immediately into your electronicmedical record. You may view this report before your referring provider.If you have questions, please contact your health care provider. Indication: Nonspecific low back pain Technique: Multiplanar, multisequence, MRI of the lumbar spine, obtained withoutcontrast. Comparison: MRI lumbar spine 11/14/2022 Findings: Diffusely decreased T1//T2 marrow signal throughout the included lowerthoracic spine extending down to L3, with more heterogeneous scatteredregions of decreased marrow signal throughout the remaining lumbar spineand included bony pelvis. This is new/significantly progressed relative to11/14/2022. Partially visualized fractures of the bilateral sacral ala and S3 body. Noother recent fracture is identified. Preserved lumbar lordosis. Traceretrolisthesis at L1-2. Conus medullaris terminates at T12-L1. Bilateralrenal cysts. Degenerative changes/bridging osteophytes at the included SIjoints. T12-L1, L1-L2, L2-L3: No neural foraminal or spinal canal stenosis. L3-L4: Mild disc bulge, left asymmetric facet arthropathy. No neuralforaminal or spinal canal stenosis. L4-L5: Mild disc bulge, moderate right and severe left facet arthropathy.No neural foraminal stenosis. Right lateral recess narrowing contactingthe descending right L5 nerve root, without central spinal canalstenosis. L5-S1: Diffuse disc-osteophyte complex, mild left and severe right facetarthropathy. No left, mild-moderate right neural foraminal narrowing.Right lateral recess narrowing contacting the descending right S1 nerveroot, without central spinal canal stenosis. Impression: 1. Diffusely decreased T1/T2 marrow signal throughout the visualized lowerthoracic and upper lumbar spine, as well as scattered throughout the lowerlumbar spine and included bony pelvis, new/significantly progressedrelative to 11/14/2022. 2. While nonspecific, neoplastic process/metastatic disease are among thedifferential considerations. Clinical correlation advised. Postcontrastimaging could be obtained for further characterization. 3. Partially visualized fractures of the bilateral sacral ala and S3 body. 4. At L4-L5, right lateral recess narrowing contacting the descendingright L5 nerve root. 5. At L5-S1, mild-moderate right neural foraminal narrowing, and rightlateral recess narrowing contacting the descending right S1 nerve root. Dictated by Belinda Ann MD @ 04/02/2025 2:36:57 PM (Electronically Signed) Praveen HOYT MR Final Result * HEMOGLOBIN A1C (03/04/2025 11:26 AM CDT) HEMOGLOBIN A1C 5.1 <5.7 % [facility] Comment: For the purpose of screening for the presence of diabetes: <5.7% Consistent with the absence of diabetes 5.7-6.4% Consistent with increased risk for diabetes (prediabetes) > or =6.5% Consistent with diabetes This assay result is consistent with a decreased risk of diabetes. Currently, no consensus exists regarding use of hemoglobin A1c for diagnosis of diabetes in children. According to [place] Diabetes Association (ADA) guidelines, hemoglobin A1c <7.0% represents optimal control in non- diabetic patients. Different metrics may apply to specific patient populations. Standards of Medical Care in Diabetes(ADA). Blood BLOOD SPECIMEN / Unknown 03/04/2025 11:26 AM CDT 03/04/2025 11:27 AM CDT Narrative [facility] - 03/05/2025 4:53 AM CDT FASTING:NO FASTING: NO Mary HOYT CHEMISTRY Final Resu lt makerist [facility] [address] [place] [address], [facility] [address] [place] [address] * LIPID PANEL W REFLEX MEASURED LDL (03/04/2025 11:26 AM CDT) CHOLESTEROL, TOTAL 144 <200 mg/dL [facility] HDL CHOLESTEROL 67 > OR = 40 mg/dL [facility] TRIGLYCERIDES 39 <150 mg/dL [facility] LDL-CHOLESTEROL 66 mg/dL (calc) [facility] Comment: Reference range: <100 Desirable range <100 mg/dL for primary prevention; <70 mg/dL for patients with CHD or diabetic patients with > or = 2 CHD risk factors. LDL-C is now calculated using the Fransisco-Storm calculation, which is a validated novel method providing better accuracy than the Friedewald equation in the estimation of LDL-C. Fransisco MAHER et al. GREER. 2013;310(19): 7375-3901 (http://education.Lightspeed/faq/BVG882) CHOL/HDLC RATIO 2.1 <5.0 (calc) [facility] NON HDL CHOLESTEROL 77 <130 mg/dL (calc) [facility] Comment: For patients with diabetes plus 1 major ASCVD risk factor, treating to a non-HDL-C goal of <100 mg/dL (LDL-C of <70 mg/dL) is considered a therapeutic option. Blood BLOOD SPECIMEN / Unknown 03/04/2025 11:26 AM CDT 03/04/2025 11:27 AM CDT Narrative [facility] - 03/05/2025 4:47 AM CDT FASTING:NO FASTING: NO Mary HOYT CHEMISTRY Final Resu lt makerist [facility] [address] [place] [address], [facility] [address] [place] [address] * (ABNORMAL) COMPLIANCE DRUG ANALYSIS (03/04/2025 11:22 AM CDT) 6-MONOACETYL MORPHINE NEG NEG ng/mL 03/08/2025 2:53 PM CDT [facility] AMPHETAMINE URINE NEG <=500 ng/mL 03/08/2025 2:53 PM CDT [facility] BARBITURATE URINE NEG <=200 ng/mL 03/08/2025 2:53 PM [facility] BENZODIAZEPINE URINE NEG <=100 ng/mL 03/08/2025 2:53 PM [facility] BUPRENORPHRINE URINE NEG <=5 ng/mL 02/17 2:53 PM [facility] COCAINE METAB URINE NEG <=300 ng/mL 03/08/2025 2:53 PM [facility] ETHYLGLUCURONIDE URINE NEG <=250 ng/mL 03/08/2025 2:53 PM [facility] FENTANYL URINE NEG <=5 ng/mL 03/08/2025 2:53 PM [facility] METHADONE URINE NEG <=300 ng/mL 03/08/2025 2:53 PM [facility] OPIATES URINE NEG <=300 ng/mL 03/08/2025 2:53 PM [facility] OXYCODONE URINE NEG <=100 ng/mL 03/08/2025 2:53 PM [facility] PROPOXYPHENE URINE NEG <=300 ng/mL 03/08/2025 2:53 PM [facility] THC 50 URINE POS(A) <=50 ng/mL 03/08/2025 2:53 PM [facility] TRAMADOL NEG <=200 ng/mL 03/08/2025 2:53 PM [facility] PH URINE 9.1(H) 5.0 - 7.0 03/08/2025 2:53 PM [facility] CREAT UR 152 >=20 mg/dL 03/08/2025 2:53 PM [facility] MASS SPECTROMETRY URINE See Below 03/08/2025 2:53 PM [facility] Comment:Mirtazapine and Spir onolactone present. Urine URINE SPECIMEN / Unknown Non-Blood / Unknown 03/04/2025 11:22 AM T 03/04/2025 12:39 PM [facility] - 03/08/2025 2:53 PM CDT Current Outpatient Medications: acetaminophen (TYLENOL) 325 mg tablet, Take 2 Tablets (650 mg) by mouth every 6 hours if needed for Pain. Max dose per day is 2000 mg Adhesive Tape (Medipore H) 3 X 10 -yard tape, Apply topically to affected area(s). amoxicillin 500 mg capsule, Take 500 mg by mouth. PRIOR TO DENTAL APPOINTMENTS aspirin 81 mg enteric coated tablet, Take 1 Tablet (81 mg) by mouth once daily. Hold for 1 week following admission then restart taking. atorvastatin 10 mg tablet, Take 1 Tablet (10 mg) by mouth once daily. busPIRone 5 mg tablet, Take one tablet (5 mg) by mouth twice daily for one week, then increase to two tablets (10 mg) twice daily cholecalciferol (Vitamin D) 1,000 unit capsule, Take 1 Capsule (1,000 units) by mouth once daily. DULoxetine 60 mg Delayed-release capsule, TAKE TWO CAPSULES BY MOUTH EVERY DAY ferrous sulfate 325 mg delayed release tablet, Take 1 Tablet (325 mg) by mouth once daily with a meal. fluconazole 150 mg tablet, Take 1 dose every 3 days for total of 3 doses furosemide (LASIX) 40 mg tablet, Take 1 Tablet (40 mg) by mouth once daily in the morning. hyoscyamine sublingual 0.125 mg subl, Place 1 Tablet (0.125 mg) under the tongue every 4 hours if needed for Bladder Spasms. ketoconazole 2 % cream, APPLY TO AFFECTED AREA(S) TWO TIMES A DAY lactulose 10 g/15 mL solution, Take 20 g by mouth two times daily. 30 mL (20 g) two times daily latanoprost 0.005 % ophthalmic solution, Place 1 Drop into both eyes at bedtime. Verified home supply 01/28/25 sjt exp: 06/2026 mirtazapine 30 mg tablet, Take 1 Tablet (30 mg) by mouth at bedtime. MULTIVITAMIN ORAL, Take 1 Tablet by mouth once daily. Non-Adherent Bandage 4 X 4 spge, Apply topically to affected area(s). Apply around drain twice per week and as needed if dressing wet or loose. olopatadine 0.1 % ophthalmic solution, Place 1 Drop into both eyes once daily if needed (allergy symptoms). Verified home supply 01/28/25 sjt exp: 01/2026 oxyCODONE 10 mg tablet, Take 1.5 Tablets (15 mg) by mouth three times daily. pantoprazole (PROTONIX) 40 mg delayed-release tablet, TAKE 1 TABLET(40 MG) BY MOUTH TWICE DAILY pregabalin 25 mg capsule, Take 1 Capsule (25 mg) by mouth two times daily. spironolactone (ALDACTONE) 50 mg tablet, Take 2 Tablets (100 mg) by mouth once daily. tamsulosin 0.4 mg capsule, Take 2 Capsules (0.8 mg) by mouth once daily after a meal. vitamin e 1,000 unit cap, Take 1,000 units by mouth once daily. No current facility-administered medications for this visit. As of 03/04/2025 Release to patient->Immediate us Mary HOYT URINE Final Resu lt [facility] [address] [place] [address], [place] * SCAN-OPERATIVE/PROCEDURE REPORT (02/11/2025 12:00 AM CDT) Scanner OTHER Final Result * CT TEMPORAL BONES WO (02/03/2025 10:54 AM CDT) Anatomical Region Laterality Modality HEAD Computed Tomogra phy 02/03/2025 1:00 PM CDT Narrative 02/03/2025 1:00 PM CDT For Patients: As a result of the Century Cures Act, medical imaging exams and procedure reports are released immediately into your electronic medical record. You may view this report before your referring provider. If you have questions, please contact your health care provider. Indication: Right-sided otorrhea, right external auditory canal lesion. Technique: Noncontrast CT of the temporal bones with multiplanar reconstruction. Comparison: Correlated with CT head dated 02/29/2024. Findings: Right: Patent external auditory canal with soft tissue density lesion on prior CT head no longer seen. Focal mucosal thickening within the mastoid tip. Otherwise clear mastoid air cells and middle ear cavity. The ossicular chain is intact. Cochlea, vestibule and semicircular canals are within normal limits. The otic capsule is normal in density. The internal auditory canal, canal for the facial nerve, and the carotid canal appear within normal limits. The sigmoid plate is intact with a prominent emissary veins. Left: 6 mm soft tissue density along the anterior inferior cartilaginous external auditory canal (series 10, image 53). Opacified mastoid tip. Clear middle ear cavity. Intact ossicular chain. The otic capsule is normal in density. The cochlea, vestibule, and semicircular canals are within normal limits. The internal auditory canal, canal for the facial nerve, and carotid canal are unremarkable. The sigmoid plate is intact with prominent emissary veins. Impression: 1. Patent right external auditory canal with soft tissue density lesion on prior CT head no longer seen. 2. 6 mm soft tissue density lesion along the anterior margin of the cartilaginous left external auditory canal (series 10, image 53). 3. Chronic opacification of the mastoid tips, unchanged since head CT dated 02/29/2024. Please note that all CT scans at this facility use dose modulation, iterative reconstruction, and/or weight-based dosing when appropriate to reduce radiation dose to as low as reasonably achievable. Dictated by Olayinka Lemus MD @ 02/03/2025 1:00:07 PM (Electronically Signed) Procedure Note Héctor Lemus MD - 02/03/2025 For Patients: As a result of the Century Cures Act, medical imagingexams and procedure reports are released immediately into your electronicmedical record. You may view this report before your referring provider.If you have questions, please contact your health care provider. Indication: Right-sided otorrhea, right external auditory canal lesion. Technique: Noncontrast CT of the temporal bones with multiplanar reconstruction. Comparison: Correlated with CT head dated 02/29/2024. Findings: Right: Patent external auditory canal with soft tissue density lesion onprior CT head no longer seen. Focal mucosal thickening within the mastoidtip. Otherwise clear mastoid air cells and middle ear cavity. Theossicular chain is intact. Cochlea, vestibule and semicircular canals arewithin normal limits. The otic capsule is normal in density. The internalauditory canal, canal for the facial nerve, and the carotid canal appearwithin normal limits. The sigmoid plate is intact with a prominentemissary veins. Left: 6 mm soft tissue density along the anterior inferior cartilaginousexternal auditory canal (series 10, image 53). Opacified mastoid tip.Clear middle ear cavity. Intact ossicular chain. The otic capsule isnormal in density. The cochlea, vestibule, and semicircular canals arewithin normal limits. The internal auditory canal, canal for the facialnerve, and carotid canal are unremarkable. The sigmoid plate is intactwith prominent emissary veins. Impression: 1. Patent right external auditory canal with soft tissue density lesion onprior CT head no longer seen. 2. 6 mm soft tissue density lesion along the anterior margin of thecartilaginous left external auditory canal (series 10, image 53). 3. Chronic opacification of the mastoid tips, unchanged since head CTdated 02/29/2024. Please note that all CT scans at this facility use dose modulation,iterative reconstruction, and/or weight-based dosing when appropriate toreduce radiation dose to as low as reasonably achievable. Dictated by Olayinka Lemus MD @ 02/03/2025 1:00:07 PM (Electronically Signed) Jovi Adame MD CT Final Re sult * TSH (01/30/2025 7:18 AM CDT) TSH 2.14 0.27 - 4.20 uIU/mL 01/30/2025 8:13 AM CDT [facility] Blood BLOOD SPECIMEN / Unknown Venipuncture / Unknown 01/30/2025 7:18 AM CDT 01/30/2025 7:35 AM CDT Narrative [facility] - 01/30/2025 8:13 AM CDT In Adults, TSH values between 5.00 and 10.00 uIU/ml do not necessarily indicate the presence of Hypothyroidism. Correlation with clinical findings such as presence of goiter and/or Thyroperoxidase (TPO) Antibody may be helpful. For more information please refer to GREER 2004; 291: 228-238. Gavi Garcia MD CHEMISTRY Final Result [facility] [address] [address], [place] * (ABNORMAL) HEMOGLOBIN (01/30/2025 7:18 AM CDT) Only the most recent of3 resultswithin the time period is included. HEMOGLOBIN 10.9(L) 13.5 - 17.5 g/dL 01/30/2025 7:42 AM CDT [facility] MCV 89 80 - 100 fL 01/30/2025 7:42 AM CDT [facility] Blood BLOOD SPECIMEN / Unknown Venipuncture / Unknown 01/30/2025 7:18 AM CDT 01/30/2025 7:35 AM CDT us Albania Santos NP HEMATOLOGY Final Res ult [facility] [address] [address], [place] * CT PELVIS WO (01/28/2025 2:24 PM CDT) Anatomical Region Laterality Modality Pelvis, Abdomen, PROSTATE, BLADDER Computed Tomography 01/28/2025 3:06 PM CDT Impressions 01/28/2025 3:06 PM CDT Decompressed urinary bladder with a suprapubic catheter in good position. No acute findings in the pelvis. Please note that all CT scans at this facility use dose modulation, iterative reconstruction, and/or weight-based dosing when appropriate to reduce radiation dose to as low as reasonably achievable. Dictated by Fatemeh Jean MD @ 01/28/2025 3:06:14 PM (Electronically Signed) Narrative 01/28/2025 3:06 PM CDT For Patients: As a result of the 21st Century Cures Act, medical imaging exams and procedure reports are released immediately into your electronic medical record. You may view this report before your referring provider. If you have questions, please contact your health care provider. INDICATION: Looking for bladder fullness, soft tissue infection suspected. COMPARISON: Patient had an neurointerventional exam today. CT abdomen pelvis urogram 12/21/2024 TECHNIQUE: CT of the pelvis without intravenous contrast. Multiplanar axial, coronal, and sagittal reformats were reconstructed. Contrast: None. FINDINGS: There is a suprapubic Crandall catheter decompressing the bladder. Small amount of excreted hyperdense contrast in the bladder. Small amount of hyperdense contrast excreted into the ureters, which are intermittently opacified and not dilated. There is ill-defined soft tissue in fluid at the bladder base extending down towards the perineum, similar to the previous examination. There is presacral soft tissue swelling and soft tissue thickening around the perirectal fascia, also unchanged. No ascites. No dilated or inflamed bowel. No ascites. No adenopathy. Postop abdominal wall. Subcutaneous stranding in the right groin consistent with a recent vascular access. No discrete hematoma. Atherosclerosis. Battery pack in the right flank with a left sacral nerve stimulator. Bilateral sacral insufficiency fractures. Bilateral parasymphyseal insufficiency fractures. No new fracture. Procedure Note Fatemeh Jean MD - 01/28/2025 For Patients: As a result of the Cures Act, medical imagingexams and procedure reports are released immediately into your electronicmedical record. You may view this report before your referring provider.If you have questions, please contact your health care provider. INDICATION: Looking for bladder fullness, soft tissue infection suspected. COMPARISON: Patient had an neurointerventional exam today. CT abdomen pelvis [id number] TECHNIQUE: CT of the pelvis without intravenous contrast. Multiplanar axial, coronal,and sagittal reformats were reconstructed. Contrast: None. FINDINGS: There is a suprapubic Crandall catheter decompressing the bladder. Smallamount of excreted hyperdense contrast in the bladder. Small amount ofhyperdense contrast excreted into the ureters, which are intermittentlyopacified and not dilated. There is ill-defined soft tissue in fluid atthe bladder base extending down towards the perineum, similar to theprevious examination. There is presacral soft tissue swelling and softtissue thickening around the perirectal fascia, also unchanged. Noascites. No dilated or inflamed bowel. No ascites. No adenopathy. Postopabdominal wall. Subcutaneous stranding in the right groin consistent witha recent vascular access. No discrete hematoma. Atherosclerosis. [place]atter[place]ack in the right flank with a left sacral nerve stimulator. Bilateralsacral insufficiency fractures. Bilateral parasymphyseal insufficiencyfractures. No new fracture. IMPRESSION: Decompressed urinary bladder with a suprapubic catheter in good position.No acute findings in the pelvis. Please note that all CT scans at this facility use dose modulation,iterative reconstruction, and/or weight-based dosing when appropriate toreduce radiation dose to as low as reasonably achievable. Dictated by Fatemeh Jean MD @ 01/28/2025 3:06:14 PM (Electronically Signed) us Minerva Bergeron MD CT Final Res ult * IR ANGIO NEURO-INTERVENTIONAL (01/28/2025 11:10 AM CDT) Anatomical Region Laterality Modality X-Ray Angiograph y Narrative 01/28/2025 1:11 PM CDT Neurointerventional Operative Report Patient: Osvaldo Ceja (1955), Date: 01/28/2025 Physician(s): Jose Luis Alberto MD Procedure(s): Transcatheter embolization, BROKER IN CHARGE: ACOM aneurysm (CPT 19152) Transcatheter therapy, embolization, radiological supervision and interpretation (CPT 20014) Selective catheter placement, left internal carotid artery, with angiography of the intracranial carotid circulation (CPT 99104) Angiography through existing catheter for follow-up study for transcatheter therapy, embolization (CPT 08421 x 3) 3D rendering requiring image postprocessing on an independent workstation (CPT 31113) Ultrasound guidance for vascular access: right common femoral artery access (CPT +71166) 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 Time-out: Performed according to the [place] Protocol. Description: The patient was placed supine on the angiography table. Both groins were sterilely prepped and draped. Ultrasound evaluation of potential access site was performed. After successfully identifying a patent vessel, ultrasound guidance was used to puncture the right common femoral artery with a micropuncture set, and a 6F sheath was inserted. A permanent recording was created for the patient record. A 95 cm Benchmark catheter was used to selectively catheterize the left internal carotid artery. DSA imaging of the cranial vessels was performed. 3D rotational angiography was also performed. 3D images were generated and reviewed on an independent workstation for treatment planning. Initial angiography confirmed a 2.6 x 3.4 x 3.1 mm ACOM aneurysm with a 2.1 mm neck. Through a 5F 125 cm Sulema distal access catheter, a Via 17 microcatheter was used to select the aneurysm lumen over a Synchro 14 wire. A WEB SL 4x2 mm device was deployed. A follow-up angiogram was performed through the existing guide catheter. These images showed aneurysm occlusion without parent artery encroachment. We then proceeded to detach the device. Another follow-up angiogram was performed through the existing guide catheter. These images showed stable device position. A final whole head follow-up angiogram was performed. These images showed no distal thromboemboli and no change in cerebral perfusion. The catheter(s) and sheath were removed. Hemostasis was achieved using a 6F AngioSeal device. Complications: None Findings: As above Specimens: None Estimated blood loss: 10 mL Medications: Omnipaque-350 90 mL IA. Heparin 10,000 U bolus total IV. Nitropaste 2 to chest during procedure. Protamine 40 mg IV at end of procedure. Fluoroscopy time: 24:40, 2005 mGy. Impression: Successful WEB embolization of ACOM aneurysm. Jose Luis Alberto MD Neurointerventional Radiology Joes Luis Alberto MD IR Final Result * (ABNORMAL) ACTIVATED CLOTTING TIME [id number] ACT (01/28/2025 10:55 AM CDT) Only the most recent of2 resultswithin the time period is included. ACTIVATED CLOTTING TIME, POCT 304(H) 74 - 125 sec 01/28/2025 11:15 AM CDT [facility] [employer] [facility] Blood BLOOD SPECIMEN / Unknown 01/28/2025 10:55 AM CDT 01/28/2025 11:15 AM CDT Jose Luis Alberto MD HEMATOLOGY Final Result [facility] [address] [place] [id number], [place] * HCHG TUBE PR1, HCHG KIT CO2 DETECTOR PR5, HCHG STYLET PR1 (01/28/2025 10:07 AM CDT) Nohemy Don CRNA - 01/28/2025 10:07 AM CDT Nohemy Howard CRNA 01/28/2025 10:08 AM Procedure: ETT Patient location during procedure: procedure room ETT Properties Mask Ventilation: easy Final Technique: direct laryngoscopy Type: straight Location: oral Cuffed: yes Tube Size: 7.5 mm Stylet: yes Laryngoscope Blade: Mills Blade Size: 2 Cormack-Lehane Grade View: 1 Insertion Attempts: 1 Placement Verification: auscultation, end tidal CO2 and symmetrical chest wall movement Assessment: pharynx clear, atraumatic and dentition unchanged Secured at: 23 Measured From: lips Difficulty: 0 (not difficult) Batsheva Anna MD ANESTHESIA PX NOTE ORDERABLE S Final Result * HCHG ANES ARTERIAL CATH FOR SAMPLE MONITOR TRANS, HCHG TUBING PR1, HCHG TUBING PR20, HCHG DRSG PR1,HCHG DRSG PR5, HCHG KIT PR5 (01/28/2025 9:31 AM CDT) Batsheva Kong MD - 01/28/2025 9:31 AM CDT Batsheva Anna MD 01/28/2025 9:32 AM Arterial Line Patient location during procedure: pre-op Indications: lab sampling and monitoring Staffing Preanesthetic Checklist Completed: patient identified, risks and benefits discussed, consent obtained and timeout performed Arterial Line Patient position: supine. Comment:. Laterality: left Site: radial Local Anesthetic: lidocaine 1%. Securement/dressing: Biopatch applied, dressing applied. Comment: Vessel Protein Purification Scientist Additional supplies used to locate vessel: no Needle Catheter size: 20 G. Comment:. Events: no complications. Batsheva Anna MD ANESTHESIA PX NOTE ORDERABLE S Final Result * Type & Screen (01/28/2025 8:44 AM CDT) ABORH A Rh Positive 01/28/2025 9:52 AM CDT [facility] ANTIBODY SCREEN Negative Negative 01/28/2025 9:52 AM CDT [facility] SPECIMEN EXPIRATION DATE/TIME 01/31/25 23:59 01/28/2025 9:52 AM CDT [facility] Blood BLOOD SPECIMEN / Unknown Venipuncture / Unknown 01/28/2025 8:44 AM CDT 01/28/2025 9:07 AM CDT Albania Santos ASSOCIATE STORE DIRECTOR BLOOD BANK Final Res ult [facility]OD B[facility] [address] [place] [address], * SCAN-CARDIAC STRIP (01/28/2025 12:00 AM CDT) Narrative 01/28/2025 12:00 AM CDT Ordered by an unspecified provider. Other Clinical Staff OTHER Final Resul t * ASPIRIN THERAPY EFFECT HCT/PLT (01/27/2025 10:37 AM CDT) PLATELET COUNT 151 140 - 440 thou/cu mm 01/27/2025 11:22 AM CDT [facility] HEMATOCRIT 38.9 37.0 - 53.0 % 01/27/2025 11:22 AM CDT [facility] Blood BLOOD SPECIMEN / Unknown Venipuncture / Unknown 01/27/2025 10:37 AM CDT 01/27/2025 10:53 AM CDT Albania Santos ASSOCIATE STORE DIRECTOR HEMATOLOGY Final Res ult [facility] [address] [place] [address], * (ABNORMAL) ASPIRIN THERAPY EFFECT TEST (01/27/2025 10:37 AM CDT) ASPIRIN 637(H) <550 ARU (Aspirin Reaction Units) 01/27/2025 11:22 AM CDT [facility] Comment:Platelet dysfunction consistent with aspirin has not been detected. PLATELET COUNT 151 thou/cu mm 01/27/2025 11:22 AM CDT [facility] Blood BLOOD SPECIMEN / Unknown Venipuncture / Unknown 01/27/2025 10:37 AM CDT 01/27/2025 10:53 AM CDT Narrative [facility] - 01/27/2025 11:22 AM CDT Platelet aggregation studies are useful as a screening test only. Platelet aggregation results must be interpreted within the context of the patients clinical and pharmacological history. us Albania Santos NP HEMATOLOGY Final Res ult [facility] [address] [place] [address], * P2Y12 INHIBITION (01/27/2025 10:37 AM CDT) PLATELET COUNT 151 140 - 440 thou/cu mm 01/27/2025 11:21 AM CDT [facility] P2Y12 REACTION UNITS 68 01/27/2025 11:21 AM CDT [facility] Comment: Reference Range: Individuals on P2Y12 inhibition therapy: <208 PRU PRU response seen in patients not on P2Y12 inhibitor medications (mean +/- 2SD): 180-376 PRU It is important to note that the reference range among cardiac patients not exposed to P2Y12 inhibitors is quite broad (180-376 PRU). Published studies suggest that achieving a value of <208 PRU for cardiology patients receiving anti-platelet therapy is associated with a lower risk of thrombotic events. There is currently no known optimal therapeutic target PRU values. PRU targets to assess drug withdrawal in pre-surgical patients have not been established. References: 1. Naa Mcgowan, Breanna Bragg, Tasneem P, et al. Platelet Reactivity and Cardiovascular Outcomes after Percutaneous Coronary Intervention. Circulation. 2011;124:1132- 1137. 2. Maty Bragg, Isaiah A, Hans L, et al. Bleeding and stent thrombosis on P5K89-nkbuxcwfhe: collaborative analysis on the role of platelet reactivity for risk stratification after percutaneous coronary intervention. Heart Journal. 2015; 36:1891-9468. 3. Maty D, Napa RF, Konaa tinajeroi A, et al. Expert position paper on the role of platelet function testing in patients undergoing percutaneous coronary intervention. Heart Journal. 2014;35(4):209-215. HEMATOCRIT 38.9 37.0 - 53.0 % 01/27/2025 11:21 AM CDT [facility] Blood BLOOD SPECIMEN / Unknown Venipuncture / Unknown 01/27/2025 10:37 AM CDT 01/27/2025 10:53 AM CDT us Albania Santos ASSOCIATE STORE DIRECTOR SEND OUTS Final Res ult [facility] [address] [place] [address], * PATH TISSUE EXAM (01/16/2025 2:15 PM CDT) Case Report Pathology Report Case: [id number] Authorizing Provider: Jovi Adame MD Collected: 01/16/2025 1415 Ordering Location: [facility] Received: 01/17/2025 0824 Clinic Pathologist: Karina Lincoln MD Specimen: Right External Ear, ear canal 01/21/2025 3:10 PM CDT [facility] Final Diagnosis RIGHT EXTERNAL EAR CANAL LESION, BIOPSY: 1. Ulcer with budding yeast forms present on GMS stain, probably Yovana 2. Accompanying squamous mucosa shows reactive changes 3. Negative for neoplasm in this sampling 01/21/2025 3:10 PM CDT [facility] at 1510 CDT Clinical Information Right external ear canal lesion 01/21/2025 3:10 PM CDT [facility] Gross Description A) Received in formalin, labeled with the patient's name and R ear, are 2 dunham-white friable tissue fragments averaging 0.1 cm. The specimen is entirely submitted in 1 cassette. The specimen may not survive histologic processing. EVM 01/17/2025 01/21/2025 3:10 PM CDT [facility] ENTRAL LABORATORY Microscopic Description The final diagnosis is based on microscopic examination of appropriate sections of all specimens. 01/21/2025 3:10 PM CDT [facility]AL LAB[facility] Additional Information Interpreted at [facility], Central Laboratory - [address] [facility] [address], [place] [address] 01/21/2025 3:10 PM CDT [facility] Other (Right External Ear) Non-Blood / Unknown 01/16/2025 2:15 PM CDT 01/17/2025 8:24 AM CDT us Jovi Adame MD PATHOLOGY/CYTOLOGY Final Result [facility] [address] [place] [address], [place] * CT ABDOMEN PELVIS W (11/21/2024 11:31 AM CLOTHING CUTTER) Anatomical Region Laterality Modality Abdomen, Pelvis, AORTA, LIVER, SPLEEN Computed Tomography 11/21/2024 11:5 5 AM CLOTHING CUTTER Impressions 11/21/2024 11:55 AM CLOTHING CUTTER 1. Cirrhotic morphology of the liver with sequela of portal venous hypertension and moderate to large volume abdominal ascites. 2. Nonacute nonunion right sacral ala fracture. 3. Urinary bladder is decompressed with a suprapubic catheter. Circumferential wall thickening. Cystic crescentic appearing focus abutting the right lateral aspect of the prostate. Indeterminate however may reflect sequela of prior TURP. Please note that all CT scans at this facility use dose modulation, iterative reconstruction, and/or weight-based dosing when appropriate to reduce radiation dose to as low as reasonably achievable. Dictated by Grant Wang MD @ 11/21/2024 11:55:28 AM (Electronically Signed) Narrative 11/21/2024 11:55 AM CLOTHING CUTTER For Patients: As a result of the Century Cures Act, medical imaging exams and procedure reports are released immediately into your electronic medical record. You may view this report before your referring provider. If you have questions, please contact your health care provider. INDICATION: Cirrhosis, pain TECHNIQUE: CT abdomen and pelvis acquired with 100 cc Omnipaque 350 IV contrast. COMPARISON: Exams dating back to 2019. FINDINGS: Lower chest: The visualized lower lungs are aerated. No pleural or pericardial effusion. ABDOMEN: Liver: Cirrhotic morphology liver. Enhancement. No discrete focal suspicious hepatic lesions. Gallbladder and biliary: Normal gallbladder without radiopaque stone. Normal caliber bile ducts. Spleen: Splenomegaly. Pancreas: Normal enhancement without peripancreatic inflammatory changes or ductal dilatation. Adrenal glands: Normal adrenal glands. Kidneys and ureters: Normal enhancement. No radio-opaque calculi. No hydroureteronephrosis. Renal cyst. Subcentimeter hypodensities are too small to characterize however statistically represent cysts. GI tract: Stomach partially distended with fluid and oral debris. Normal caliber small and large bowel loops. Normal appendix. Colonic diverticulosis without diverticulitis. Vascular structures: Normal caliber aorta with atherosclerotic calcifications. Numerous venous collaterals. Lymph nodes: No lymphadenopathy in the abdomen or pelvis by size criteria. Peritoneum: Moderate to large volume abdominal ascites. No free air or focal drainable collection. PELVIS: Genitourinary system: Urinary bladder is decompressed with a suprapubic catheter. Circumferential wall thickening. Cystic crescentic appearing focus abutting the right lateral aspect of the prostate. Indeterminate however may reflect sequela of prior TURP. SKELETAL STRUCTURES AND SOFT TISSUES: Nonacute nonunion right sacral ala fracture. Pubic symphysis arthrosis. SI joint arthrosis. Sacral nerve stimulator device. Procedure Note Grant Wang MD - 11/21/2024 For Patients: As a result of the 21st Century Cures Act, medical imagingexams and procedure reports are released immediately into your electronicmedical record. You may view this report before your referring provider.If you have questions, please contact your health care provider. INDICATION: Cirrhosis, pain TECHNIQUE: CT abdomen and pelvis acquired with 100 cc Omnipaque 350 IV contrast. COMPARISON: Exams dating back to 2019. FINDINGS: Lower chest: The visualized lower lungs are aerated. No pleural orpericardial effusion. ABDOMEN: Liver: Cirrhotic morphology liver. Enhancement. No discrete focalsuspicious hepatic lesions. Gallbladder and biliary: Normal gallbladder without radiopaque stone.Normal caliber bile ducts. Spleen: Splenomegaly. Pancreas: Normal enhancement without peripancreatic inflammatory changesor ductal dilatation. Adrenal glands: Normal adrenal glands. Kidneys and ureters: Normal enhancement. No radio-opaque calculi. Nohydroureteronephrosis. Renal cyst. Subcentimeter hypodensities are toosmall to characterize however statistically represent cysts. GI tract: Stomach partially distended with fluid and oral debris. Normalcaliber small and large bowel loops. Normal appendix. Colonicdiverticulosis without diverticulitis. Vascular structures: Normal caliber aorta with atheroscleroticcalcifications. Numerous venous collaterals. Lymph nodes: No lymphadenopathy in the abdomen or pelvis by sizecriteria. Peritoneum: Moderate to large volume abdominal ascites. No free air orfocal drainable collection. PELVIS: Genitourinary system: Urinary bladder is decompressed with a suprapubiccatheter. Circumferential wall thickening. Cystic crescentic appearingfocus abutting the right lateral aspect of the prostate. Indeterminatehowever may reflect sequela of prior TURP. SKELETAL STRUCTURES AND SOFT TISSUES: Nonacute nonunion right sacral alafracture. Pubic symphysis arthrosis. SI joint arthrosis. Sacral nervestimulator device. IMPRESSION: 1. Cirrhotic morphology of the liver with sequela of portal venoushypertension and moderate to large volume abdominal ascites. 2. Nonacute nonunion right sacral ala fracture. 3. Urinary bladder is decompressed with a suprapubic catheter.Circumferential wall thickening. Cystic crescentic appearing focusabutting the right lateral aspect of the prostate. Indeterminate howevermay reflect sequela of prior TURP. Please note that all CT scans at this facility use dose modulation,iterative reconstruction, and/or weight-based dosing when appropriate toreduce radiation dose to as low as reasonably achievable. Dictated by Grant Wang MD @ 11/21/2024 11:55:28 AM (Electronically Signed) us Mary HOYT CT Final Resu lt * COLONOSCOPY (03/28/2022 7:27 AM CDT) 03/28/2022 7:27 AM CDT Narrative Transcriptions Chavez Trujillo DO - 03/28/2022 11:27 AM CDT Patient Name: Osvaldo Ceja Procedure Date: 03/28/2022 Gender: Male Date of [...] electronically. Note Initiated On: 03/28/2022 7:27 AM us Chavez Trujillo DO PROCEDURE ORD Fi nal Result * ANTI HCV (09/23/2016 8:24 AM CLOTHING CUTTER) HEPATITIS C ANTIBODY Non-Reacti ve Non-Reacti ve 09/23/2016 4:40 PM CLOTHING CUTTER [facility] Blood BLOOD SPECIMEN / Unknown Venipuncture / Unknown 09/23/2016 8:24 AM CLOTHING CUTTER 09/23/2016 8:24 AM CLOTHING CUTTER Narrative [facility] - 09/23/2016 4:40 PM CLOTHING CUTTER Antibodies to HCV not detected; does not exclude the possibility of exposure to HCV. Mary HOYT SEND OUTS Final Resu lt [facility] [address] [place] [address], [place] from Last 3 Months or Most Recently Relevant to Health Maintenance Additional Health Concerns Active Problems Noted Date Diagnosed Date Autogenerated Problem 02/23/2025 Infection Onset Date Last Indicated VRE Clearance Comment:Infection Control Note: Hx of VRE, surveillance criteria met, no need for further testing or isolation precautions. Do not delete or resolve the Infection Flag. 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 Healthcare Directive 04/26/2024 3:24 PM Sig arsen 04/23/24 * Full Code (Latest Code Status on File) Date Activated Date Inactivated Comments 01/28/2025 11:31 AM 01/30/2025 6:24 PM Question Answer Comments Code Status Discussion: Reviewed Preferences * DNR Date Activated Date Inactivated Comments 12/20/2024 5:20 PM 12/24/2024 6:21 PM Question Answer Comments Code Status Discussion: Reviewed Preferences * Full Code Date Activated Date Inactivated Comments 11/26/2024 1:49 PM 11/27/2024 3:51 PM Question Answer Comments Code Status Discussion: Reviewed Preferences * Full Code Date Activated Date Inactivated Comments 06/03/2024 5:14 PM 06/08/2024 6:42 PM Question Answer Comments Code Status Discussion: Reviewed Preferences * Full Code Date Activated Date Inactivated Comments 03/17/2024 9:53 AM 03/24/2024 4:11 PM Question Answer Comments Code Status Discussion: Unable to Assess Preferences, Provider to review later Care Teams Assistant District Attorney Relationship Specialty Start Date End Date Mary Abbasi PA [facility] [place] [address] PCP - General Physician Shallot Packer 03/10/23 Emma Webb CNS [address] [place] [address] Clinical Nurse Specialist Clinical Nurse Specialist 02/24/[address] [facility] [place] [address] Registered Dietitian Product Specialist 02/24/21 Osvaldo Guerrero, RN [address] [place] [address] Registered Nurse Registered Nurse 02/24/21 Simran Warner MD [address] [place] [address] Hematology and Oncology 02/28/22 Shonna Grant NP [address] [place] [address] Hematology and Oncology 02/28/22 Alexadnria Segovia MD [address] [place] [address] Surgery - Urology 03/27/25
--- OUTSIDE RECORDS SUMMARY | 2025-04-08 14:03 | XMS_ITS | Encounter Summary ---
Author Organization [facility] Address [address] [place] [address] Care Team Providers Care Sawsmith Name Role Phone Elsewhere, Pcp Primary Care Provider Unavailabl e Reason for Referral * Outpatient (Routine) - Closed Specialty Diagnoses / Procedures Referred By Britt barber Referred To Contact Ophthalmology Martell Ramirez M.D. [address] [place] [phone] Phone: tel: fax: [facility] Referral ID Status Reason Start Date Expiration Date Visits Re quested Visits Authorized [id number] Closed 03/11/2025 09/10/2026 1 1 Encounter Details Date Type Department Care Team (Late st Contact Info) Description 03/11/2025 Orders Only Department of Ophthalmology in [place], [place] [address] [place] [phone] Corky Tracy, C.O.A. Retained Fragment Cataract Status Post Surgery Left (Primary Dx); Subluxation Lens Right; Diabetes Mellitus Type 2 Without Complication (HCC) Social History Tobacco Use Types Packs/Day Years Used Date Smoking Tobacco: Former Cigarettes Q uit: 05/19/2006 Passive Smoke Exposure: Never Smokeless Tobacco: Never Alcohol Use Standard Drinks/Week Comments Not Currently 3 (1 standard drink = 0.6 oz pur e alcohol) hasn't for months [facility] Utilities Answer Date Recorded In the [...] your living situation today? I have a [facility] place to live 01/20/2025 Education Answer Date Recorded What is the highest level of school you have completed or the highest degree you have received? 12th grade 07/18/2022 Sex and Gender Information Value Date Recorded Sex Assigned at Male 12/18/2017 8:54 AM CDT Legal Sex Male 4:26 AM ADMINISTRATIVE OFFICE MANAGER Gender Identity Male 12/18/2017 8:54 AM CDT Sexual Orientation Straight 12/18/2017 8: 54 AM CDT documented as of this encounter Plan of Treatment Upcoming Encounters Date Type Department Care Team (Late st Contact Info) Description 04/10/2025 12:30 PM CDT Ancillary Procedure Department of Ophthalmology in [place], [place] [address] [place] [address] Martell Ramirez M.D. [address] [place] [phone] 04/10/2025 1:00 PM CDT Office Visit Department of Ophthalmology in [place], [place] [address] [place] [phone] Martell Ramirez M.D. [address] [place] [phone] 05/15/2025 1:00 PM CDT Ancillary Procedure Department of Ophthalmology in [place], [place] [address] [place] [phone] Martell Ramirez M.D. [address] [place] [phone] 05/15/2025 1:30 PM CDT Ancillary Procedure Department of Ophthalmology in [place], [place] [address] [place] [phone] Martell Ramirez M.D. [address] [place] [phone] 05/15/2025 2:15 PM CDT Ancillary Procedure Department of Ophthalmology in [place], [place] [address] [place] [phone] Martell Ramirez M.D. [address] [place] [phone] 05/15/2025 2:45 PM CDT Office Visit Department of Ophthalmology in [address] [phone] Martell Ramirez M.D. [address] [place] [phone] documented as of this encounter Goals Goal Patient Goal Type Associated Problems Recent Progress Patient-Stated? Author Autogenerat ed Goal Care Plan Autogenerated Problem No Corky Tracy, C.O.A. documented as of this encounter Results * Ophthalmology office visit (clinic): Self; General (03/18/2025 2:00 PM CDT) us Martell Ramirez M.D. OUTPATIENT RETURN VISITS Fi nal Result documented in this encounter Visit Diagnoses Diagnosis Retained Fragment Cataract Status Post Surgery Left- Primary Subluxation Lens Right Diabetes Mellitus Type 2 Without Complication (HCC) documented in this encounter Additional Health Concerns Active Problems Noted Date Diagnosed Date Autogenerated Problem 03/31/2025 Assessment Noted Time PHQ-9 Depression Total Score: 3 03/13/20 14 8:24 AM CDT documented as of this encounter Care Teams Sawsmith Relationship Specialty Start Date End Date Elsewhere, Pcp PCP - General Internal Medicine 01/17/23 documented as of this encounter
--- OUTSIDE RECORDS SUMMARY | 2025-04-08 14:03 | XMS_ITS | Encounter Summary ---
Author Organization [facility] Address [address] [place] [address] Care Team Providers Care Senior Software Manager Name Role Phone Elsewhere, Pcp Primary Care Provider Unavailabl e Encounter Details Date Type Department Care Team (Late st Contact Info) Description 03/12/2025 Documentation Preoperative Evaluation Center in [place], [place] [address] [place] [phone] Michelle Colorado, FOUNDRY ENGINEER, C.N.P. [address] [place] [phone] Social History Tobacco Use Types Packs/Day Years Used Date Smoking Tobacco: Former Cigarettes Q uit: 05/19/2006 Passive Smoke Exposure: Never Smokeless Tobacco: Never Alcohol Use Standard Drinks/Week Comments Not Currently 3 (1 standard drink = 0.6 oz pur e alcohol) hasn't for months [facility] Utilities Answer Date Recorded In the past 12 months has e [employer], gas, oil, or water [employer] threatened to shut off services in your [...] have a [facility] place to live 01/20/2025 Education Answer Date Recorded What is the highest level of school you have completed or the highest degree you have received? 12th grade 07/18/2022 Sex and Gender Information Value Date Recorded Sex Assigned at Male 12/18/2017 8:54 AM CDT Legal Sex Male 4:26 AM WELDER Gender Identity Male 12/18/2017 8:54 AM CDT Sexual Orientation Straight 12/18/2017 8: 54 AM CDT documented as of this encounter Progress Notes * Michelle Colorado APRN, C.N.P. - 03/12/2025 8:17 AM CDT This is a [facility] pre-screening chart review to ascertain if a [facility] appointment is necessary. A comprehensive review of [facility] EMR was performed. We reviewed Care Everywhere and Documents Viewer or primary care or specialty care notes, laboratory testing, cardiac testing with in the last6 months and prior anesthesia encounters. Based on the EMR review, the patient is an acceptable candidate for the planned procedure and may proceed without additional preoperative evaluation or testing. The patient was not seen in [facility]. Recently underwent similar procedures 01/20/2025. Please call [phone] ([facility] Doc of the day) weekdays between 8 am and 4:30 pm with any questions. documented in this encounter Plan of Treatment Upcoming Encounters Date Type Department Care Team (Late st Contact Info) Description 04/10/2025 12:30 PM CDT Ancillary Procedure Department of Ophthalmology in [place], [place] [address] [place] [phone] Martell Ramirez M.D. [address] [place] [phone] 04/10/2025 1:00 PM CDT Office Visit Department of Ophthalmology in [place], [place] [address] [place] [phone] Martell Ramirez M.D. [address] [place] [phone] 05/15/2025 1:00 PM CDT Ancillary Procedure Department of Ophthalmology in [place], [place] [address] [place] [address] Martell Ramirez M.D. [address] [place] [phone] 05/15/2025 1:30 PM CDT Ancillary Procedure Department of Ophthalmology in [place], [place] [address] [place] [phone] Martell Ramirez M.D. [address] [place] [phone] 05/15/2025 2:15 PM CDT Ancillary Procedure Department of Ophthalmology in [place], [place] [address] [place] [phone] Martell Ramirez M.D. [address] [place] [phone] 05/15/2025 2:45 PM CDT Office Visit Department of Ophthalmology in [place], [place] [address] [place] [phone] Martell Ramirez M.D. [address] [place] [phone] documented as of this encounter Goals Goal Patient Goal Type Associated Problems Recent Progress Patient-Stated? Author Autogenerat ed Goal Care Plan Autogenerated Problem No Corky Tracy, C.O.A. documented as of this encounter Visit Diagnoses Not on filedocumented in this encounter Additional Health Concerns Active Problems Noted Date Diagnosed Date Autogenerated Problem 03/31/2025 Assessment Noted Time PHQ-9 Depression Total Score: 3 03/13/20 14 8:24 AM CDT documented as of this encounter Care Teams Senior Software Manager Relationship Specialty Start Date End Date Elsewhere, Pcp PCP - General Internal Medicine 01/17/23 documented as of this encounter
--- OUTSIDE RECORDS SUMMARY | 2025-04-08 14:03 | XMS_ITS | Encounter Summary ---
Author Organization [facility] Address [address] [place] [address] Care Team Providers Care Ring Maker Name Role Phone Elsewhere, Pcp Primary Care Provider Unavailabl e Encounter Details Date Type Department Care Team (Latest Contact Info) Description 02/11/2025 Clinical Communication Department of Ophthalmology in [place], [place] [address] [place] [address] Martell Ramirez M.D. [address] [place] [phone] Social History Tobacco Use Types Packs/Day Years Used Date Smoking Tobacco: Former Cigarettes Q uit: 05/19/2006 Passive Smoke Exposure: Never Smokeless Tobacco: Never Alcohol Use Standard Drinks/Week Comments Not Currently 3 (1 standard drink = 0.6 oz pur e alcohol) hasn't for months [facility] Utilities Answer Date Recorded In the past 12 months has [facility] [employer], gas, oil, or water [employer] threatened to shut off services in your [...] a [facility] place to live 01/20/2025 Education Answer Date Recorded What is the highest level of school you have completed or the highest degree you have received? 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 [address] [place] [phone] 04/10/2025 1:00 PM CDT Office Visit Department of Ophthalmology in [place], [place] [address] [place] [phone] Martell Ramirez M.D. [address] [place] [phone] 05/15/2025 1:00 PM CDT Ancillary Procedure Department of Ophthalmology in [place], [place] [address] [place] [address] Martell Ramirez M.D. [address] [place] [phone] 05/15/2025 1:30 PM CDT Ancillary Procedure Department of Ophthalmology in [place], [place] [address] [place] [address] Martell Ramirez M.D. [address] [place] [phone] 05/15/2025 2:15 PM CDT Ancillary Procedure Department of Ophthalmology in [place], [place] [address] [place] [phone] Martell Ramirez M.D. [address] [place] [phone] 05/15/2025 2:45 PM CDT Office Visit Department of Ophthalmology in [place], [place] [address] [place] [phone] Martell Ramirez M.D. [address] [place] [phone] documented as of this encounter Visit Diagnoses Not on filedocumented in this encounter Additional Health Concerns Assessment Noted Time PHQ-9 Depression Total Score: 3 03/13/20 14 8:24 AM CDT documented as of this encounter Care Teams Ring Maker Relationship Specialty Start Date End Date Elsewhere, Pcp PCP - General Internal Medicine 01/17/23 documented as of this encounter
--- OUTSIDE RECORDS SUMMARY | 2025-04-08 14:04 | XMS_ITS | Encounter Summary ---
Author Organization [facility] Address [address] [place] [address] Care Team Providers Care Central Scheduler Name Role Phone Mary Ruggiero PA-C Primary Care Provider [phone] Tanya Andrews APRN INTEGRATION SPECIALIST Unavailable [phone] Deep Pires MD Unavailable [phone] Encounter Details Date Type Department Care Team (Late st Contact Info) Description 02/26/2025 [facility] [address] 4[address] [place] [address] Kimberlee Silverio Social History Tobacco Use Types Packs/Day Years Used Date Smoking Tobacco: Former Cigarettes 2 35 1 971 - 2006 Smokeless Tobacco: Never Alcohol Use Standard Drinks/Week [...] Answer Date Recorded Do you have housing? 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 06/25/2024 Assessment Noted Time PHQ-9 Depression Total Score: 16 025 1:21 PM CDT documented as of this encounter Care Teams Central Scheduler Relationship Specialty Start Date End Date Mary Ruggiero PA-C [address] [place] [address] PCP - General 01/16/24 Tanya Andrews APRN INTEGRATION SPECIALIST [address] [facility] [address] [place] [address] Nurse Practitioner Urology 03/22/24 Deep Pires MD NPI: [id number] [place] [address] [address] [place], [place] [id number] Assigned Surgical Provider 05/10/24 documented as of this encounter
--- OUTSIDE RECORDS SUMMARY | 2025-04-08 14:04 | XMS_ITS | Encounter Summary ---
Author Organization [facility] Address [address] [place] [address] Care Team Providers Care Electrical Electronics Engineers Name Role Phone Mary Ruggiero PA-C Primary Care Provider [phone] Tanya Andrews APRN MEAT LUGGER Unavailable [phone] Deep Pires MD Unavailable [phone] Encounter Details Date Type Department Care Team (Late st Contact Info) Description 02/21/2025 Telephone [facility] [address] [place] [address] Baron Deluca PA-C [address] [place] [address] Social History Tobacco Use Types Packs/Day Years [...] in an abandoned building, in an overnight assisted, or couch-surfing.) Yes 10/04/2024 Are you worried [...] on file 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 Gender Identity Not on file Sexual Orientation Not on file documented as of this encounter Miscellaneous Notes * Telephone Encounter - Vangie Ferreira - 02/26/2025 12:19 PM CDT Left Voicemail (2nd Attempt) for the patient to call back and schedule the following: Appointment type: Return VV Provider: Dion Return date: Follow-up virtual visit with Baron Deluca PA-C in 3 months from visit date 02/14 Specialty phone number: [phone] Additional appointment(s) needed: Additonal Notes: * Telephone Encounter - Vangie Ferreira - 02/21/2025 9:21 AM CDT Left Voicemail (1st Attempt) for the patient to call back and schedule the following: Appointment type: Return VV Provider: Dion Return date: Follow-up virtual visit with Baron Deluca PA-C in 3 months from visit date 02/14 Specialty phone number: [phone] Additional appointment(s) needed: Additonal Notes: documented in this encounter Plan of Treatment Not on file documented as of this encounter Visit Diagnoses Not on filedocumented in this encounter Additional Health Concerns 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 Source: [employer]. 06/25/2024 Assessment Noted Time PHQ-9 Depression Total Score: 16 02/14/ 025 1:21 PM CDT documented as of this encounter Care Teams Electrical Electronics Engineers Relationship Specialty Start Date End Date Mary Ruggiero PA-C [address] [place] [address] PCP - General 01/16/24 Tanya Andrews APRN MEAT LUGGER [address] [facility] [address] [place] [address] Nurse Practitioner Urology 03/22/24 Deep Pires MD [address] [facility] [address] [place], [place] [id number] Assigned Surgical Provider 05/10/24 documented as of this encounter
--- OUTSIDE RECORDS SUMMARY | 2025-04-08 14:04 | XMS_ITS | Encounter Summary ---
Author Organization [facility] Address [address] [place] [address] Care Team Providers Care Procurement Accountant Name Role Phone Elsewhere, Pcp Primary Care Provider Unavailabl e Encounter Details Date Type Department Care Team (Latest Contact Info) Description 04/07/2025 Clinical Communication Department of Ophthalmology in [place], [place] [address] [place] [address] Martell Ramirez M.D. [address] [place] [phone] Social History Tobacco Use Types Packs/Day Years Used Date Smoking Tobacco: Former Cigarettes Q uit: 05/19/2006 Passive Smoke Exposure: Never Smokeless Tobacco: Never Alcohol Use Standard Drinks/Week Comments Not Currently 3 (1 standard drink = 0.6 oz pur e alcohol) hasn't for months [facility] Utilities Answer Date Recorded In the past 12 months has [facility] [employer], gas, oil, or water [employer] threatened to shut off services in your [...] your living situation today? I have a [facility] place to live 01/20/2025 Education Answer Date Recorded What is the highest level of school you have completed or the highest degree you have received? 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 [address] [place] [phone] 04/10/2025 1:00 PM CDT Office Visit Department of Ophthalmology in [place], [place] [address] [place] [phone] Martell Ramirez M.D. [address] [place] [phone] 05/15/2025 1:00 PM CDT Ancillary Procedure Department of Ophthalmology in [place], [place] [address] [place] [address] Martell Ramirez M.D. [address] [place] [phone] 05/15/2025 1:30 PM CDT Ancillary Procedure Department of Ophthalmology in [place], [place] [address] [place] [address] Martell Ramirez M.D. [address] [place] [phone] 05/15/2025 2:15 PM CDT Ancillary Procedure Department of Ophthalmology in [place], [place] [address] [place] [address] Martell Ramirez M.D. [address] [place] [phone] 05/15/2025 2:45 PM CDT Office Visit Department of Ophthalmology in [place], [place] [address] [place] [address] Martell Ramirez M.D. [address] [place] [phone] documented as of this encounter Goals Goal Patient Goal Type Associated Problems Recent Progress Patient-Stated? Author Autogenerat ed Goal Care Plan Autogenerated Problem Corky Boucher, C.O.A. documented as of this encounter Visit Diagnoses Not on filedocumented in this encounter Additional Health Concerns Active Problems Noted Date Diagnosed Date Autogenerated Problem 03/31/2025 Assessment Noted Time PHQ-9 Depression Total Score: 3 03/13/20 14 8:24 AM CDT documented as of this encounter Care Teams Procurement Accountant Relationship Specialty Start Date End Date Elsewhere, Pcp PCP - General Internal Medicine 01/17/23 documented as of this encounter
--- NOTE | 2025-04-08 14:19 | ED.GENADULT ---
HPI - General Adult General Chief complaint: Extremity Pain/Injury, Lower Stated complaint: infection in leg Time Seen by Provider: 04/08/25 14:00 History of Present Illness HPI narrative: Patient was referred to come to us from [facility] per patient. Patient reports WBC was high and was told to come to ED. Patient has painful left lower leg with swelling. Leg is notably red and purple. 69-year-old man presenting to the emergency department after being seen in associated clinic. Apparently had labs drawn yesterday and was noted to have high white count. Seen in clinic today with left lower leg that has been increasingly red and painful over the last 2 days. Concern of infection here or blood clot perhaps also prompting recommendation to the emergency department. Does have a history of indwelling suprapubic catheter. He notes a history of recurrent urinary tract infections and that it is hard to find oral antibiotics for him. He has not had a fever. Does not recall trauma. Wonders if maybe he had insect bite behind the leg. More recent healthcare includes surgeries for cataract extraction and lens reimplantation both requiring revisions. I note his left eye to be red he says that the lens had to be sutured in than this was done this last week. Has not had unusual drainage but does mention though that has had some small urethral drainage he goes to sit down for bathroom making. No chest pain. No shortness of breath. Is not anticoagulated Related Data Home Medications ?Medication ?Instructions ?Recorded ?Confirmed atorvastatin 10 mg tablet 10 mg PO DAILY 02/12/24 04/08/25 duloxetine 60 mg capsule,delayed 120 mg PO DAILY 02/12/24 04/08/25 release ferrous sulfate 325 mg (65 mg 325 mg PO DAILY 02/12/24 04/08/25 iron) tablet (FeroSul) oxycodone 10 mg tablet 10 mg PO TID PRN 02/12/24 04/08/25 acetaminophen 325 mg tablet 650 mg PO Q6H PRN 08/27/24 04/08/25 calcium 500 mg (as 1 tab PO DAILY 08/27/24 04/08/25 carbonate)-vitamin D3 10 mcg (400 unit) tablet (Calcium 500 + D) mirabegron 50 mg tablet,extended 50 mg PO DAILY 08/27/24 04/08/25 release 24 hr pantoprazole 40 mg tablet,delayed 40 mg PO BID 08/27/24 04/08/25 release pregabalin 25 mg capsule 25 mg PO BID 08/27/24 04/08/25 vitamin E 670 mg (1,000 unit) 670 mg PO DAILY 08/27/24 08/27/24 capsule amoxicillin 500 mg capsule 2,000 mg PO 04/08/25 buspirone 15 mg tablet 15 mg PO BID 04/08/25 04/08/25 spironolactone 50 mg tablet 100 mg PO DAILY 04/08/25 04/08/25 tamsulosin 0.4 mg capsule 0.8 mg PO DAILY 04/08/25 04/08/25 Previous Rx's ?Medication ?Instructions ?Recorded furosemide 40 mg tablet 40 mg PO DAILY #7 tabs 02/28/24 lactulose 20 gram/30 mL oral 20 g (30 mL) PO BID 30 days #1,800 08/28/24 solution mL Allergies Allergy/AdvReac Type Severity Reaction Status Date / Time metformin AdvReac Intermediate Diarrhea Verified 04/08/25 14:12 Review of Systems Status of ROS: Reports: 6 or more systems reviewed and unremarkable except as noted in History and below 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 (ICD-10) Chronic insomnia ?F51.04 - Psychophysiologic insomnia (ICD-10) Thrombocytopenia ?D69.6 - Thrombocytopenia, unspecified (ICD-10) Vitamin D deficiency ?E55.9 - Vitamin D deficiency, unspecified (ICD-10) Morbid obesity with BMI of 40.0-44.9, adult ?E66.01 - Morbid (severe) obesity due to excess calories (ICD-10) ?Z68.41 - Body mass index [BMI] 40.0-44.9, adult (ICD-10) Infected prosthetic knee joint ?T84.59XA - Infection and inflammatory reaction due to other internal joint prosthesis, initial encounter (ICD-10) ?Z96.659 - Presence of unspecified artificial knee joint (ICD-10) Restless leg syndrome ?G25.81 - Restless legs syndrome (ICD-10) Diastasis of rectus abdominis ?M62.08 - Separation of muscle (nontraumatic), other site (ICD-10) Incarcerated ventral hernia ?K43.6 - Other and unspecified ventral hernia with obstruction, without gangrene (ICD-10) Chronic venous insufficiency ?I87.2 - Venous insufficiency (chronic) (peripheral) (ICD-10) Obstructive sleep apnea ?G47.33 - Obstructive sleep apnea (adult) (pediatric) (ICD-10) Hypertension ?I10 - Essential (primary) hypertension (ICD-10) Depression with anxiety ?F41.8 - Other specified anxiety disorders (ICD-10) Prostate cancer ?C61 - Malignant neoplasm of prostate (ICD-10) Surgical History Hx of colonoscopy ?Z98.890 - Other specified postprocedural states (ICD-10) Status post total right knee replacement ?Z96.651 - Presence of right artificial knee joint (ICD-10) Social History Narrative: , Rosibel was here with him today. Denies alcohol use having quit 2 years ago. Denies tobacco and recreational drug use. What is your current living situation?: I presently have a place to live Problems where you live: no known problems Problems where you live details: N/A In the past 12 months, utilities in danger of being shut off: no In past 12 months, lack of transportation kept you from medical appts, meetings, work, or getting things needed for daily living: no In the past 12 mos, have been you worried that your food would run out before you had money to buy more?: never true In the past 12 mos, the food you bought just didn't last and you didn't have money to buy more?: never true Smoking Status: Never smoker Do you use any of these nicotine containing products: None How often do you have a drink containing alcohol: never How often do you have six or more drinks on one occasion: Never AUDIT-C Alcohol total score: 0 Non-prescribed substance use: denies use Caffeine: Yes How often does anyone, including family, friends and others, physically hurt you: never How often does anyone, including family, friends and others, insult or talk down to you: never How often does anyone, including family, friends and others, threaten you with harm: never How often does anyone, including family, friends and others, scream or curse at you: never service: No Exam Narrative: Exam Narrative: Pleasant. NAD. Left lower leg, to which has strapped a leg bag that is filled with bright but but not transparent yellow urine, is darkly red generally. Some areas of purpling suggesting some intradermal bleeding. It is warm and tender to palpation generally over the left lower leg. There is a sub cm irregular erosion in the anterior mid left lower leg. I do not see discrete inflammatory changes around it. He has bruising over both forearms as well. Lungs appear clear. Heart in mildly elevated rate and regular rhythm. Suprapubic catheter looks to be in place without unusual erythema. No unusual drainage. There is no drainage currently from his urethra. Const: Vital Signs, click to edit/add: Vital Signs - 24 hr 04/08/25 14:02 Temperature 97.6 F Pulse Rate [Pulse Oximeter] 93 Respiratory Rate 16 Blood Pressure [Ri ght Upper Arm] 122/70 Pulse Oximetry 95 Oxygen Delivery Me thod Room Air Documenting provider has reviewed patient's vital signs: yes Course Vital Signs Vital signs: Initial Vital Signs Temperature 97.6 F 04/08/25 14:02 Temperature Source Temporal Artery Scan 04/08/25 14:02 Pulse Rate 93 04/08/25 14:02 Respiratory Rate 16 04/08/25 14:02 Blood Pressure 122/70 04/08/25 14:02 Blood Pressure Mean 87 04/08/25 14:02 Pulse Oximetry 95 04/08/25 14:02 Oxygen Delivery Method Room Air 04/08/25 14:02 Vital Signs Temperature 97.6 F 04/08/25 14:02 Pulse Rate 93 04/08/25 14:02 Respiratory Rate 16 04/08/25 14:02 Blood Pressure 122/70 04/08/25 14:02 Pulse Oximetry 95 04/08/25 14:02 Oxygen Delivery Method Room Air 04/08/25 14:02 Temperature 97.6 F 04/08/25 14:02 Pulse Rate 93 04/08/25 14:02 Respiratory Rate 16 04/08/25 14:02 Blood Pressure 122/70 04/08/25 14:02 Pulse Oximetry 95 04/08/25 14:02 Oxygen Delivery Method Room Air 04/08/25 14:02 Medications Administered Medications: Discontinued Medications Generic Name Dose Route Start Last Admin Trade Name Stone PRN Reason Stop Dose Admin Doxycycline Hyclate 100 mg 04/08/25 17:04 04/08/25 17:15 Doxycycline Hyclate 100 Mg PO 04/08/25 17:05 100 mg ONCE ONE Administration Ceftriaxone Sodium 1 gm/ 100 mls @ 200 mls/hr 04/08/25 16:16 04/08/25 17:09 Sodium Chloride IVPB 04/08/25 16:17 Infused ONCE ONE Infusion Medical Decision Making MDM Narrative Medical decision making narrative: Would appear to have a cellulitis. Would recheck standard labs. Blood cultures. May have source of urinary tract infection although this is an indwelling catheter and might be unsure what to make of initial urinalysis. Would be prudent to scan his leg looking for a potential blood clot. IV was initiated. Elevated legs here in the emergency department. Venous ultrasound of the left leg as reported by accounts payable technician was without evidence of clot. Radiology over-read below Indication: Swelling, redness and pain left lower extremity. Technique: Grayscale, grayscale compression, color Doppler, spectral Doppler and augmentation technique was utilized for evaluating the left lower extremity venous system. The right common femoral vein was also studied. Comparison: No prior venous studies available for comparison Findings: The right common femoral vein is patent The following structures were started on the left and showed no evidence deep venous thrombosis: Common femoral vein, femoral vein, deep femoral vein, popliteal vein, peroneal vein and posterior tibial vein Impression: No evidence of left lower extremity deep venous thrombosis. Dictated by Feliberto Levine MD @ 04/08/2025 3:26:03 PM Discuss these findings with Mr. Zuniga. White count is reassuring. CRP however is elevated enough that I would have some concern and given comorbidities. I do not have known MRSA history evident to me. Did initiate a dose of Rocephin here in the emergency department. I think it is looking like a strep infection. Decided to cover also though for MRSA type organism. Given a dose of doxycycline as well here in the emergency department. I would not otherwise treat urine as it appears at this time but pending clear cultures. Stable vitals here in the emergency department. See patient discharge plan for further discussion I am treating you for a cellulitis. Your white count was normal but your CRP was elevated. You received a dose of Rocephin here in the emergency department. Also a dose of doxycycline. Be sure to be elevating your legs at the level of your heart or a little above if possible when you are at rest. You might try compression stockings or an Gordon wrap or 2 as well. Be seen for marked increase in spreading redness, pain, fever or spreading redness yet after couple of days. Prescribing a course of doxycycline and Augmentin from [facility]. Take this for 8 days starting this evening. A urine culture will be pending here. Of course you already receiving antibiotics. I would anticipate that often your urine would look like it might be infected but hopefully the antibiotics that were chosen in combination for your skin infection will also cover what might be brewing in your urine. Enjoy your trip to the . Hopefully you can make it to [facility] sometime soon. Medical Records Medical records reviewed: Yes I reviewed the patient's medical records Lab Data Lab results reviewed: Yes I reviewed the patient's lab results Labs: Lab Results 04/08/25 04/08/25 Range/Units 14:39 14:53 WBC 10.94 (4.50-11.00) K/uL RBC 4.59 (4.30-5.90) m/uL Hgb 13.6 (13.5-17.5) gm/dL Hct 42.1 (37.0-53.0) % MCV 92 (80-100) fL MCH 30 (26-34) pg MCHC 32 (32-36) gm/dL RDW Coeff of Renee 20.4 H (11.5-15.5) % Plt Count 96 L (140-440) K/uL Neut % (Auto) 81.6 H (42.0-72.0) % Lymph % (Auto) 5.4 L (20-44) % [place] % (Auto) 11.1 H (0.0-11.0) % Eos % (Auto) 1.0 (0.0-7.0) % Baso % (Auto) 0.4 (0.0-3.0) % Neut # (Auto) 8.90 H (1.7-7.0) K/uL Lymph # (Auto) 0.60 L (0.90-2.90) K/uL [place] # (Auto) 1.20 H (0.00-0.90) K/UL Eos # (Auto) 0.11 (0.00-0.50) K/uL Baso # (Auto) 0.04 (0.00-0.30) K/uL Abs Immat Gran (auto) 0.05 (0.00-0.30) K/uL Imm/Tot Granulo (auto) 0.5 % INR 1.47 H (0.91-1.10) APTT 34 H (23-33) Seconds Sodium 134 L (135-149) mmol/L Potassium 4.6 (3.6-5.1) mmol/L Chloride 105 (96-114) mmol/L Carbon Dioxide 24 (20-32) mmol/L Anion Gap 5 L (7-15) mEq/L BUN 21 (7-30) mg/dL Creatinine 1.1 (0.5-1.5) mg/dL Estimated Creat Clear 67.29 Estimated GFR 74 ml/min Glucose 127 H (60-115) mg/dL Calcium 9.1 (8.4-10.6) mg/dL C-Reactive Protein 13.6 H (0.5-1.0) mg/dL Urine Color Yellow (Yellow) Urine Appearance Cloudy A (Clear) Urine pH 5.5 (5.0-8.5) Ur Specific [place] 1.020 (1.000-1.030) Urine Protein 1+ A (Negative) Urine Glucose (UA) Negative (Negative) Urine Ketones Negative (Negative) Urine Blood 2+ A (Negative) Urine Nitrite Positive A (Negative) Urine Bilirubin Negative (Negative) Urine Urobilinogen 0.2 (0.2-1.0) Ur Leukocyte Esterase 1+ A (Negative) Urine RBC 10-25 A (0-2) Urine WBC 10-25 A (0-5) Ur Squamous Epith Cells None (None-Few) Urine Bacteria Many A (None) Discharge Plan Discharge Clinical Impression: Cellulitis Patient Disposition: Home w/ Parent or Adult Condition: Stable Additional Instructions: I am treating you for a cellulitis. Your white count was normal but your CRP was elevated. You received a dose of Rocephin here in the emergency department. Also a dose of doxycycline. Be sure to be elevating your legs at the level of your heart or a little above if possible when you are at rest. You might try compression stockings or an Gordon wrap or 2 as well. Be seen for marked increase in spreading redness, pain, fever or spreading redness yet after couple of days. Prescribing a course of doxycycline and Augmentin from [facility]. Take this for 8 days starting this evening. A urine culture will be pending here. Of course you already receiving antibiotics. I would anticipate that often your urine would look like it might be infected but hopefully the antibiotics that were chosen in combination for your skin infection will also cover what might be brewing in your urine. Enjoy your trip to the . Hopefully you can make it to [facility] sometime soon. Prescriptions: No Action atorvastatin 10 mg tablet 10 mg PO DAILY ferrous sulfate [FeroSul] 325 mg (65 mg iron) tablet 325 mg PO DAILY duloxetine 60 mg capsule,delayed release(DR/EC) 120 mg PO DAILY oxycodone 10 mg tablet 10 mg PO TID PRN furosemide 40 mg tablet 40 mg PO DAILY Qty: 7 2RF pregabalin 25 mg capsule 25 mg PO BID pantoprazole 40 mg tablet,delayed release (DR/EC) 40 mg PO BID mirabegron 50 mg tablet extended release 24 hr 50 mg PO DAILY vitamin E 670 mg (1,000 unit) capsule 670 mg PO DAILY acetaminophen 325 mg tablet 650 mg PO Q6H PRN calcium carbonate-vitamin D3 [Calcium 500 + D] 500 mg-10 mcg (400 unit) tablet 1 tab PO DAILY lactulose 20 gram/30 mL Solution 20 g PO BID 30 Days Qty: 1800 1RF amoxicillin 500 mg capsule 2,000 mg PO buspirone 15 mg tablet 15 mg PO BID tamsulosin 0.4 mg capsule 0.8 mg PO DAILY spironolactone 50 mg tablet 100 mg PO DAILY Follow Up/Referrals: Mary Ruggiero PA-C [Primary Care Provider, Family Practice] Stand Alone Forms: [facility] Info Instructions
--- NOTE | 2025-04-08 14:42 | CRLHL7_ITS ---
For Patients: As a result of the Century Cures Act, medical imaging exams and procedure reports are released immediately into your electronic medical record. You may view this report before your referring provider. If you have questions, please contact your health care provider. Indication: Swelling, redness and pain left lower extremity. Technique: Grayscale, grayscale compression, color Doppler, spectral Doppler and augmentation technique was utilized for evaluating the left lower extremity venous system. The right common femoral vein was also studied. Comparison: No prior venous studies available for comparison Findings: The right common femoral vein is patent The following structures were started on the left and showed no evidence deep venous thrombosis: Common femoral vein, femoral vein, deep femoral vein, popliteal vein, peroneal vein and posterior tibial vein Impression: No evidence of left lower extremity deep venous thrombosis. Dictated by Feliberto Levine MD @ 04/08/2025 3:26:03 PM (Electronically Signed)
[2025-04-08 15:09] LABS: Hematocrit 42.1 % (37.0-53.0); Hemoglobin* 13.6 gm/dL (13.5-17.5); Immature Granulocytes Abs Auto 0.05 K/uL (0.00-0.30); Immature Granulocytes Pct Auto 0.5 %; Mean Corpuscular HGB Conc 32 gm/dL (32-36); Mean Corpuscular Hemoglobin 30 pg (26-34); Mean Corpuscular Volume 92 fL (80-100); RDW Coefficient of Variation % 20.4 % (11.5-15.5); Red Blood Count 4.59 m/uL (4.30-5.90); White Blood Count* 10.94 K/uL (4.50-11.00)
[2025-04-08 15:09] LABS: Appearance Urine Cloudy (Clear)
[2025-04-08 15:13] LABS: Lymphocytes Absolute Auto 0.60 K/uL (0.90-2.90); Slide Review Reflex No
[2025-04-08 15:25] LABS: Chloride* 105 mmol/L (96-114); Potassium* 4.6 mmol/L (3.6-5.1); Sodium* 134 mmol/L (135-149)
[2025-04-08 15:27] LABS: INR 1.47 (0.91-1.10); Prothrombin Time 18.8 Seconds
[2025-04-08 15:28] LABS: Anion Gap 5 mEq/L (7-15); Blood Urea Nitrogen* 21 mg/dL (7-30); Carbon Dioxide* 24 mmol/L (20-32); Creatinine* 1.1 mg/dL (0.5-1.5); Est. Creatinine Clearance* 67.29; Estimated Glomerular Filt Rate 74 ml/min
[2025-04-08 15:29] LABS: Calcium* 9.1 mg/dL (8.4-10.6); Glucose* 127 mg/dL (60-115)
--- OUTSIDE RECORDS SUMMARY | 2025-04-08 15:57 | XMS_ITS ---
Author Organization Formerly [facility] enter Care Team Providers Care Machinist Job Setter Name Role Phone Feliberto Leigh Unavailable Unavailable Robyn Keys Unavailable Unavailable Allergies and adverse reactions Code CodeSystem Substance Reaction Severity StartDate Concern Status 6809 RXNORM metFORMIN Unknown 01/23/2024 active Care Team Name Role Address Phone Organization Dates Feliberto Leigh PCP [facility] [address], [place], [address], [place] (Office): : (Pager): [facility] 01/23/2024 - 02/03/2024 Robyn Keys [address], [place], [address], [place] (Office): : : [facility] 01/23/2024 - 02/03/2024 Immunizations Immunization Status [...] cancelled Pneumococcal conjugate vaccine 20-valent (PCV20), polysaccharide [id number] conjugate, adjuvant, preservative free 216 CVX created date: 01/24/2024 consent date: 01/24/2024 Educated by Tran Tejada RN on 01/24/2024 [employer] Covid [id number] Formula cancelled SARS-COV-2 (COVID-19) vaccine, mRNA, spike [...] 1 ACUTE KIDNEY FAILURE, UNSPECIFIED 024 01/23/[address] completed 2 ACUTE POSTHEMORRHAGIC ANEMIA [address] active 3 ANXIETY DISORDER, UNSPECIFIED [address] active 4 ATOPIC NEURODERMATITIS [address] active 5 BODY MASS INDEX [BMI]40.0-44.9, ADULT [address] active 6 CEREBRAL ANEURYSM, NONRUPTURED [address] active 7 DEPRESSION, UNSPECIFIED [address] active 8 ENCOUNTER FOR OTHER ORTHOPEDIC AFTERCARE [address] active 9 ESSENTIAL (PRIMARY) HYPERTENSION [address] active 10 FLUID OVERLOAD, UNSPECIFIED [address] active 11 GASTRO-ESOPHAGEAL REFLUX DISEASE WITHOUT ESOPHAGITIS [address] active 12 HYPERLIPIDEMIA, UNSPECIFIED [address] active 13 LYMPHEDEMA, NOT ELSEWHERE CLASSIFIED [address] active 14 METHICILLIN SUSCEPTIBLE STAPHYLOCOCCUS AUREUS INFECTION THE CAUSE OF DISEASES CLASSIFIED ELSEWHERE [address] active 15 MORBID (SEVERE) OBESITY DUE TO EXCESS CALORIES [address] active 16 MUSCLE WEAKNESS (GENERALIZED) [address] active 17 NEED FOR ASSISTANCE WITH PERSONAL CARE 05361948358215168 SNOMED CT active 18 OBSTRUCTIVE SLEEP APNEA (ADULT) (PEDIATRIC) [address] active 19 OTHER FATIGUE 15251720 SNOMED CT active 20 PERSONAL HISTORY OF MALIGNANT NEOPLASM OF PROSTATE [address] active 21 PRESENCE OF RIGHT ARTIFICIAL KNEE JOINT [address] active 22 REPEATED FALLS [address] active 23 RETENTION OF URINE, UNSPECIFIED [address] active 24 STAPHYLOCOCCAL ARTHRITIS, RIGHT KNEE [address] active 25 THROMBOCYTOPENIA, UNSPECIFIED [address] active 26 TYPE 2 DIABETES MELLITUS WITHOUT COMPLICATIONS [address] active 27 UNSPECIFIED HYDRONEPHROSIS [address] active Reason for Referral No Reasons for Referral Entered Social History Social History Observation Description Start Date End Date Code Code System Current Smoking Status Tobacco smoking consumption unknown 067900682 SNOMED CT Sex Assigned At Male 1955 32111-2 [facility] Gender Identity Vital Signs Code Code System Vitals Name Values and Units Timing Information 57021-1 [facility] Weight Bapgn=587.8 Units=Lbs 9279-1 [facility] Respiratory Rate Value=18.0 Units=/m in 02/03/2024 8462-4 [facility] Blood Pressure-Diastolic Value=65 Un its=mmHg 02/03/2024 8480-6 [facility] Blood Pressure-Systolic Tkvyy=058 Un its=mmHg 02/03/2024 8310-5 [facility] Body Temperature Value=97.8 Units= F 02/03/2024 8867-4 [facility] Heart rate Value=83.0 Units=/min 73825-7 [facility] O2 % BldC Oximetry Value=94.0 Units= % 02/03/2024 34650-3 [facility] Pain Level Value=0.0 02/03/2024 8302-2 [facility] Height Value=72.0 Units=Inches 01/24/2024
[2025-04-08] MEDS: cefTRIAXone 1 GM in 0.9 % SODIUM CHLORIDE Mini-bag 100 ML IVPB (16:32)
[2025-04-08] MEDS: DOXYCYCLINE HYCLATE 100 MG PO (17:15)
== END 2025-04-08 17:23 | disposition home or self-care (01) ==
PROVIDERS: Emergency Provider Family Medicine; PCP Physician Assistant
DX: L03.116 Cellulitis of left lower limb (principal)
CPT/HCPCS: 36415; 80048; 81001; 85025; 85610; 85730; 86140; 87086; 93971; 96365; 99284; A9270; J0696

== ENCOUNTER 2025-06-09 07:47 | Emergency (ER) | payer BC, MEDICARE, SELFPAY ==
--- OUTSIDE RECORDS SUMMARY | 2022-12-01 08:40 | XMS_ITS | Continuity of Care Document ---
Author Organization [facility] Address [address] [facility] [place] [address] Phone Care Team Providers Care Preparation Room Worker Name Role Phone Sherie Das DNP Unavailable Unavailable Medications Medication Instructions Dosage Effective Dates (start - stop) Status Comments alendronate 70 mg tablet take 1 tablet by oral route every week in the morning, at least 30 min before first food, beverage, or medication of day 70 MG - Active atorvastatin 10 mg tablet take 1 tablet by oral route every day 10 MG - Active calcitonin (salmon) 200 unit/actuation nasal spray - Active loperamide 2 mg capsule take 2 capsule by oral route after 1st loose stool, followed by 1 capsule after each subsequent loose stool not to exceed 16 mg/day 4 MG - Active mirtazapine 15 mg tablet take 1 tablet by oral route every day before bedtime 15 MG - Active cholecalciferol (vitamin D3) 25 mcg (1,000 unit) capsule - Active multivitamin tablet take 1 tablet by oral route every day 1 tablet - Active Percocet 10 mg-325 mg tablet take 1 tablet by ORAL route every 6 hours max 4/day 1 tablet - Active hydrocodone 10 mg-acetaminophen 325 mg tablet take 1 tablet by oral route every 3 - 5 hours as needed for pain 1 tablet - Active potassium chloride ER 20 mEq tablet,extended release take 1 tablet by oral route 3 times every day with food 20 MEQ - Active hydroxyzine HCl 25 mg tablet take 0.5 tablet by oral route every day as needed 12.5 MG - Active Senna Plus 8.6 mg-50 mg capsule take 2 capsule by oral route every day 2.00 capsule - Active lisinopril 20 mg-hydrochlorothiazide 12.5 mg tablet take 1 tablet by oral route every day 1.00 tablet - Active tamsulosin 0.4 mg capsule take 1 capsule by oral route 2 times every day 1/2 hour following the same meal each day 0.4 MG - Active triamcinolone acetonide 0.1 % topical ointment apply by topical route 2 times every day a thin layer to the affected area(s) 0.00 - Active venlafaxine ER 150 mg capsule,extended release 24 hr take 1 capsule by oral route every day 150 MG - Active venlafaxine ER 75 mg capsule,extended release 24 hr take 1 capsule by oral route every day with food 75 MG - Active vitamin E mixed 1,000 unit capsule - Active zolpidem 10 mg tablet take 1 tablet by ORAL route every day at bedtime as needed 10 MG - Active Procedures Procedure Date OFFICE/OUTPATIENT VISIT, [facility] Advance Directives Directive Yes / No Effective Date File Name No Information Encounters Encounter Description Practice Location Reason(s) For Visit Diagnoses Date Provider Providers Copied on Encounter OFFICE/OUTPA TIENT VISIT, [facility], [address], [place], [id number] , [place] tel:[phone] [facility] [place] low back pain (chief complaint) Chronic pain syndromeLow back pain, unspecifiedObesity [address]. [id number] [facility] [address] [address], [place], [place], [id number] , [place]. tel:[phone] Referring Provider: Mary Ruggiero [address], [address]. tel:[phone] Family History Family Member Type Diagnosis Age At Onset No Information Payers Payer name Insurance type Covered alliance party ID Authorreginalda tiestrella(s) [employer] [place] Medicare Replacement MB [id number] Social History Type Description Quantity Date Captured Comments Alcohol Use Details No Caffeine Use Details Unknown Tobacco Use Status Current non-smoker Smoking Status Never smoker Non-Smoking Tobacco Use Details : No Details Available : No Details Available Sex Male Vital Signs Date / Time: Height Weight BMI Pulse Rate Blood Pressure Temperature Respiratory Rate Body Surface Area Head Circumference Head Circ. Percentile Wt./Jero. Percentile BMI percentile Pulse Ox Inhaled Ox 2:26 PM 73.00 in 160.118 kg (353.00 lbs) 46.5 7 kg/m cleopatraer (2) Chief Complaint And Reason For Visit From encounter dated '12/01/2022 13:40'. low back pain (chief complaint). Description: Severity level is 10. Duration: chronic. It occurs persistently. Location of pain is lower back. The client describes the pain as sharp. Symptoms are aggravated by ascending stairs, bending, changing positions, descending stairs, lifting, running, twisting, walking, housework and movement. Symptoms are relieved by heat, ice, lying down and sitting. Reason For Referral Reason For Referral No Information Plan Of Treatment Date Type Action Status Goal CT-Colonography. Due on due Goal Weight. Due on d ue Goal Update Social History. Due o n due Goal FIT-DNA. Due on due Goal Medication Reconciliation. D ue on due Goal Review Allergy List. Due on due Goal Tobacco Use. Due on 023 due Goal Lipid panel. Due on 023 due Goal Zoster vaccine (1st). Due on due Goal PHQ-9. Due on du e Goal Hepatitis C screening. Due o n due Goal Height. Due on d ue Goal Unhealthy drug use screening . Due on due Goal FIT. Due on due History Of Present Illness Encounter Date Complaint History Of Prese nt Illness low back pain Severity level i s 10. Duration: chronic. It occurs persistently. Location of pain is lower back. The client describes the pain as sharp. Symptoms are aggravated by ascending stairs, bending, changing positions, descending stairs, lifting, running, twisting, walking, housework and movement. Symptoms are relieved by heat, ice, lying down and sitting. Comments: Osvaldo is a 67 y/o man here for initial consult regarding ongoing low back pain which has persisted for the past 6-8 weeks d/t injury in which he almost fell on ice, but severely mikey his back, though he endorses that he has experienced low back pain prior to his injury. Secondarily reports hearing a snapping noise in his hip after bending down. Patient is referred by Mary Ruggiero PA-C. Pain is characterized as sharp and pain level averages 10/10. Notes that he has osteoporosis, though is not currently taking medication for bone density. He takes Testosterone for prostate cancer. Endorses that he has completed imaging within the last two months at [facility] which revealed a crack in his vertebae. Reports that Dr. Chaz Olivas recommended that he pursue a kyphoplasty.For pain management, patient has undergone a LESI through [facility] about a month ago (est. October 2022), and has tried Oxycodone.Osvaldo is interested in pain management through [facility]. Interested in Vertebralplasty/Kyphoplasty No other concerns today. Functional Status Date Functional Assessmen t No Information Instructions Date Instruction Additional Infor mation No Information Assessments Type Assessment Date assessment Chronic pain syndrome 3 impression This is my first nafisa luation of the patient. Some records available from [facility] and [facility]. [place] [employer] criminal backgrounds check completed with no outstanding results or concerning convictions.Osvaldo is a 67 y/o man here for initial consult regarding ongoing low back pain which has persisted for the past 6-8 weeks d/t injury in which he fell on ice, though he endorses that he has experienced low back pain prior to his injury. Secondarily reports hearing a snapping noise in his hip after bending down. Patient is referred by Mary Ruggiero PA-C. Pain is characterized as sharp and pain level averages 10/10. Notes that he has osteoporosis, though is not currently taking medication for bone density.Endorses that he has completed imaging within the last two months at [facility].Reports that Dr. Chaz Olivas recommended that he pursue a kyphoplasty.For pain management, patient has undergone a LESI through [facility] about a month ago (est. October 2022), and has tried Oxycodone.Osvaldo is interested in pain management through [facility] assessment Low back pain, unspecified Nov- impression Low back pain, exace rbated by recent injury sustained 6-8 weeks ago (est. September 2022). Reports that Dr. Chaz Olivas recommended that he pursue a kyphoplasty.MRI Lumbar Spine from 07/19/2018 through [facility]:CONCLUSION:1. Disc degeneration, moderate at L5-S1 and L4-5, and mild at multiple levels.2. Mild subarticular recess stenosis on the right at L5-S1 and L4-5 with a 3 mm broad-based right paracentral disc protrusion at L5-S1.3. Mild to moderate bilateral facet arthropathy at L5-S1 and L4-5.4. Comparison with 03/07/2016 shows that the right paracentral disc protrusion at L5-S1 is new or has increased in size in the interval. assessment Obesity impression Current weight: 353 lb; BMI: 46. 5 Mental Status Date Cognitive Assessment Orientation - [place] ed to time, place, person, situation. Patient Care Teams Name Effective Dates (start - stop) Status Members No Information
--- OUTSIDE RECORDS SUMMARY | 2025-05-06 10:27 | XMS_ITS ---
Author Organization [facility] Address [address] [place] [address] [address] [facility] [facility] [address] Care Team Providers Care Dean Of Student Services Name Role Phone Mary Ruggiero Primary Care Provider UnavailJohny Stewart Unavailable [phone] Jean Marie Deluca PA-C Unavailable Unavailable Negro Lawson Unavailable [phone] REASON FOR VISIT Lumbar TFE Encounters Encounter Location Date Provider Diagnosis [facility] [address] [place] [address] [address] [place] [address] 05/06/2025 Negro Lawson Plan Of Treatment No Information Procedure Notes * Category Sub-Category Detail Notes KOJO Initial M Initial KOJO Indications Injection Ordere d:: Bilateral L4-5 TFE KOJO for same area within pas t 12 months?:: No Patient has a diagnosis of:: Radiculopat hy Supporting imaging findings: : Severe DDD,Disc osteophyte complex,Additional details: Nerve impingement The patient's quality of lif e and/or function is affected:: Yes How is their quality of life or function affected?:: _ moving around, walking, standing, stairs and worldwide chief creative officer Has the pain duration been a t least 4 weeks?: Yes Conservative Care Details:: 4 weeks of conservative care with ongoing pain Progress Notes * Osvaldo CEJADOB:1955 ( 69 yo M)Acc No.[id number]:05/06/2025 Patient: Tyrell Osvaldo CADE :1955 A ge:69 Y S ex:Male Phone: Address:[address] [place] [address] Subjective: * Chief Complaints: * L umbar TFE * Medical History: * Surgical History: * Hospitalization/Major Diagno stic Procedure: * Medications: Objective: * Vitals: * Physical Examination: Assessment: Plan: * Treatment: * Procedures: E SI Initial M: Initial KOJO Indications I njection Ordered: Bilateral L4-5 TFE, E SI for same area within past 12 months?: N o, P atient has a diagnosis of:?Radiculopathy, S upporting imaging findings: S evere DDD,Disc osteophyte complex,Additional details: Nerve impingement, T he patient's quality of life and/or function is affected:?Yes, H ow is their quality of life or function affected?: _ moving around, walking, standing, stairs and worldwide chief creative officer, H as the pain duration been at least 4 weeks? Y es, C onservative Care Details: 4 weeks of conservative care with ongoing pain. * Procedure Codes: * true * Date: Generated for Sergey gant/Tonia/Rubénitting on: 0 06/09/2025 08:21 AM CDT
--- OUTSIDE RECORDS SUMMARY | 2025-05-15 | XMS_ITS | Encounter Summary ---
Author Organization [facility] Address [address] [place] [address] Care Team Providers Care Test Equipment Mechanic Name Role Phone Elsewhere, Pcp Primary Care Provider Unavailabl e Encounter Details Date Type Department Care Team (Late st Contact Info) Description 05/15/2025 Ancillary Procedure Department of Ophthalmology Social History Tobacco Use Types Packs/Day Years Used Date Smoking Tobacco: Former Cigarettes Q uit: 05/19/2006 Passive Smoke Exposure: Never Smokeless Tobacco: Never Alcohol Use Standard Drinks/Week Comments Not Currently 3 (1 standard drink = 0.6 oz pur e alcohol) hasn't for months [facility] Utilities Answer Date Recorded In [...] AM CDT Legal Sex Male 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 Gender Identity Male 12/18/2017 8:54 AM CDT Sexual Orientation Straight 12/18/2017 8: 54 AM CDT documented as of this encounter Plan of Treatment Not on file documented as of this encounter Procedures Procedure Name Priority Date/Time Associated Diagnosis Comments OPHTHALMOLOGY IMAGE EXAM Routine 05/15/2025 12:00 AM CDT documented in this encounter Results * Eye Pentacam-Ophthalmology Image Exam (05/15/2025 12:00 AM CDT) Narrative [facility] - 05/15/2025 12:58 PM CDT This order has been created and [...] documented as of this encounter Care Teams Test Equipment Mechanic Relationship Specialty Start Date End Date Elsewhere, Pcp PCP - General Internal Medicine 01/17/23 documented as of this encounter
--- OUTSIDE RECORDS SUMMARY | 2025-05-15 00:05 | XMS_ITS | Encounter Summary ---
Author Organization [facility] Address [address] [place] [address] Care Team Providers Care Customer Counter Associate Name Role Phone Elsewhere, Pcp Primary Care Provider Unavailabl e Encounter Details Date Type Department Care Team (Late st Contact Info) Description 05/15/2025 12:05 AM CDT Ancillary Procedure Department of Ophthalmology Social History Tobacco Use Types Packs/Day Years Used Date Smoking Tobacco: Former Cigarettes Q uit: 05/19/2006 Passive Smoke Exposure: Never Smokeless Tobacco: Never Alcohol Use Standard Drinks/Week Comments Not Currently 3 (1 standard drink = 0.6 oz pur e alcohol) hasn't for months [facility] Utilities Answer Date Recorded In the [...] AM CDT 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 Gender Identity Male 12/18/2017 8:54 AM CDT Sexual Orientation Straight 12/18/2017 8: 54 AM CDT documented as of this encounter Plan of Treatment Not on file documented as of this encounter Procedures Procedure Name Priority Date/Time Associated Diagnosis Comments OPHTHALMOLOGY IMAGE EXAM Routine 05/15/2025 12:05 AM CDT documented in this encounter Results * Eyes UBM-Ophthalmology Image Exam (05/15/2025 12:05 AM CDT) Narrative [facility] - 05/15/2025 1:29 PM CDT This order has been created [...] documented as of this encounter Care Teams Customer Counter Associate Relationship Specialty Start Date End Date Elsewhere, Pcp PCP - General Internal Medicine 01/17/23 documented as of this encounter
--- OUTSIDE RECORDS SUMMARY | 2025-05-15 00:10 | XMS_ITS | Encounter Summary ---
Author Organization [facility] Address [address] [place] [address] Care Team Providers Care Investor Relations Director Name Role Phone Elsewhere, Pcp Primary Care Provider Unavailabl e Encounter Details Date Type Department Care Team (Late st Contact Info) Description 05/15/2025 12:10 AM CDT Ancillary Procedure Department of Ophthalmology Social History Tobacco Use Types Packs/Day Years Used Date Smoking Tobacco: Former Cigarettes Q uit: 05/19/2006 Passive Smoke Exposure: Never Smokeless Tobacco: Never Alcohol Use Standard Drinks/Week Comments Not Currently 3 (1 standard drink = 0.6 oz pur e alcohol) hasn't for months [facility] Utilities Answer Date Recorded In the past [...] AM CDT 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 Gender Identity Male 12/18/2017 8:54 AM CDT Sexual Orientation Straight 12/18/2017 8: 54 AM CDT documented as of this encounter Plan of Treatment Not on file documented as of this encounter Procedures Procedure Name Priority Date/Time Associated Diagnosis Comments OPHTHALMOLOGY IMAGE EXAM Routine 05/15/2025 12:10 AM CDT documented in this encounter Results * Eyes Spectralis OCT-Ophthalmology Image Exam (05/15/2025 12:10 AM CDT) Narrative [facility] - 05/15/2025 2:25 PM CDT This order has been created [...] documented as of this encounter Care Teams Investor Relations Director Relationship Specialty Start Date End Date Elsewhere, Pcp PCP - General Internal Medicine 01/17/23 documented as of this encounter
--- OUTSIDE RECORDS SUMMARY | 2025-05-15 12:45 | XMS_ITS | Encounter Summary ---
Author Organization [facility] Address [address] [place] [address] Care Team Providers Care Security Systems Technician Name Role Phone Elsewhere, Pcp Primary Care Provider Unavailabl e Encounter Details Date Type Department Care Team (Latest Contact Info) Description 05/15/2025 12:45 PM CDT Ancillary Procedure Department of Ophthalmology in [place], [place] [address] [place] [address] Martell Ramirez M.D. [address] [place] [address] Retained Fragment Cataract Status Post Surgery Left Social History Tobacco Use Types Packs/Day Years Used Date Smoking Tobacco: Former Cigarettes Q uit: 05/19/2006 Passive Smoke Exposure: Never Smokeless Tobacco: Never Alcohol Use Standard Drinks/Week Comments Not Currently 3 (1 standard drink = 0.6 oz pur e alcohol) hasn't for months [facility] Utilities Answer Date Recorded In the past 12 months has e [employer], gas, oil, or water [employer] threatened to shut off services in your [...] living situation today? I have a [facility] place to live 01/20/2025 Education Answer Date Recorded What is the highest level of school you have completed or the highest degree you have received? 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 Gender Identity Male 12/18/2017 8:54 AM CDT Sexual Orientation Straight 12/18/2017 8: 54 AM CDT documented as of this encounter Plan of Treatment Not on file documented as of this encounter Procedures Procedure Name Priority Date/Time Associated Diagnosis Comments SCHEIMPFLUG TOMOGRAPHY (PENTACAM) - OS - LEFT EYE Routine 05/15/2025 1:18 PM CDT Retained Fragment Cataract Status Post Surgery Left documented in this encounter Results * Scheimpflug Tomography (Pentacam) - OS - Left Eye (05/15/2025 1:18 PM CDT) Narrative OPHTHALMOLOGY IMAGING EXAM - 05/15/2025 2:53 PM CDT Minimal astigmatism OU us Martell [facility]ST[facility] OTHER Final Resul t OPHTHALMOLOGY IMAGING EXAM documented in this encounter Visit Diagnoses Diagnosis Retained Fragment Cataract Status Post Surgery Left documented in this encounter Additional Health Concerns Assessment Noted Time PHQ-9 Depression Total Score: 3 03/13/20 14 8:24 AM CDT documented as of this encounter Care Teams Security Systems Technician Relationship Specialty Start Date End Date Elsewhere, Pcp PCP - General Internal Medicine 01/17/23 documented as of this encounter
--- OUTSIDE RECORDS SUMMARY | 2025-05-15 13:00 | XMS_ITS | Encounter Summary ---
Author Organization [facility] Address [address] [place] [address] Care Team Providers Care Sharepoint Solutions Developer Name Role Phone Elsewhere, Pcp Primary Care Provider Unavailabl e Encounter Details Date Type Department Care Team (Latest Contact Info) Description 05/15/2025 1:00 PM CDT Ancillary Procedure Department of Ophthalmology in [place], [place] [address] [place] [address] Martell Ramirez M.D. [address] [place] [address] Retained Fragment Cataract Status Post Surgery Left Social History Tobacco Use Types Packs/Day Years Used Date Smoking Tobacco: Former Cigarettes Q uit: 05/19/2006 Passive Smoke Exposure: Never Smokeless Tobacco: Never Alcohol Use Standard Drinks/Week Comments Not Currently 3 (1 standard drink = 0.6 oz pur e alcohol) hasn't for months [facility] Utilities Answer Date Recorded In the past 12 months has e [employer], gas, oil, or water [employer] threatened to shut off services in your [...] your living situation today? I have a [facility] place to live 01/20/2025 Education Answer Date Recorded What is the highest level of school you have completed or the highest degree you have received? 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 Gender Identity Male 12/18/2017 8:54 AM CDT Sexual Orientation Straight 12/18/2017 8: 54 AM CDT documented as of this encounter Plan of Treatment Not on file documented as of this encounter Procedures Procedure Name Priority Date/Time Associated Diagnosis Comments ULTRASOUND BIOMICROSCOPY - OS - LEFT Routine 05/15/2025 1:26 PM CDT Retained Fragment Cataract Status Post Surgery Left documented in this encounter Results * Ultrasound Biomicroscopy (UBM) - OS - Left Eye (05/15/2025 1:26 PM CDT) Narrative OPHTHALMOLGY NON-IMAGING ORDERS - 05/15/2025 2:53 PM CDT 05/15/2025 UBM Left Eye: UBM completed per [place] Protocol. JH Stable OS us Martell Ramirez M.D. OPHTH ULTRASOUND Final Resu lt OPHTHALMOLGY NON-IMAGING ORDERS documented in this encounter Visit Diagnoses Diagnosis Retained Fragment Cataract Status Post Surgery Left documented in this encounter Additional Health Concerns Assessment Noted Time PHQ-9 Depression Total Score: 3 03/13/20 14 8:24 AM CDT documented as of this encounter Care Teams Sharepoint Solutions Developer Relationship Specialty Start Date End Date Elsewhere, Pcp PCP - General Internal Medicine 01/17/23 documented as of this encounter
--- OUTSIDE RECORDS SUMMARY | 2025-05-15 14:15 | XMS_ITS | Encounter Summary ---
Author Organization [facility] Address [address] [place] [address] Care Team Providers Care Rugby League Footballer Name Role Phone Elsewhere, Pcp Primary Care Provider Unavailabl e Encounter Details Date Type Department Care Team (Latest Contact Info) Description 05/15/2025 2:15 PM CDT Ancillary Procedure Department of Ophthalmology in [place], [place] [address] [place] [address] Martell Ramirez M.D. [address] [place] [phone] Retained Fragment Cataract Status Post Surgery Left Social History Tobacco Use Types Packs/Day Years Used Date Smoking Tobacco: Former Cigarettes Q uit: 05/19/2006 Passive Smoke Exposure: Never Smokeless Tobacco: Never Alcohol Use Standard Drinks/Week Comments Not Currently 3 (1 standard drink = 0.6 oz pur e alcohol) hasn't for months [facility] Utilities Answer Date Recorded In the past 12 months has e [employer], gas, oil, or water [employer] threatened to shut off services in your [...] your living situation today? I have a [facility] place to live 01/20/2025 Education Answer Date Recorded What is the highest level of school you have completed or the highest degree you have received? 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 Gender Identity Male 12/18/2017 8:54 AM CDT Sexual Orientation Straight 12/18/2017 8: 54 AM CDT documented as of this encounter Plan of Treatment Not on file documented as of this encounter Procedures Procedure Name Priority Date/Time Associated Diagnosis Comments OPTICAL COHERENCE TOMOGRAPHY - MACULA/RETINA - OU - BOTH EYES Routine 05/15/2025 2:53 PM CDT Retained Fragment Cataract Status Post Surgery Left documented in this encounter Results * Optical Coherence Tomography - Macula/Retina - OU - Both Eyes (05/15/2025 2:53 PM CDT) Narrative OPHTHALMOLOGY IMAGING EXAM - 05/15/2025 2:53 PM CDT See note from visit on 05/15/2025. us Martell Ramirez M.D. OPHTH TOMOGRAPHY Final Resu lt OPHTHALMOLOGY IMAGING EXAM documented in this encounter Visit Diagnoses Diagnosis Retained Fragment Cataract Status Post Surgery Left documented in this encounter Additional Health Concerns Assessment Noted Time PHQ-9 Depression Total Score: 3 03/13/20 14 8:24 AM CDT documented as of this encounter Care Teams Rugby League Footballer Relationship Specialty Start Date End Date Elsewhere, Pcp PCP - General Internal Medicine 01/17/23 documented as of this encounter
--- OUTSIDE RECORDS SUMMARY | 2025-05-15 14:45 | XMS_ITS | Encounter Summary ---
Author Organization [facility] Address [address] [place] [address] Care Team Providers Care Bar Turner Name Role Phone Elsewhere, Pcp Primary Care Provider Unavailabl e Reason for Visit * Outpatient (Routine) - Closed Specialty Diagnoses / Procedures Referred By Britt barber Referred To Contact Ophthalmology Martell Ramirez M.D. [address] [place] [address] Phone: tel: fax: [facility] Referral ID Status Reason Start Date Expiration Date Visits Re quested Visits Authorized [id number] Closed 03/11/2025 09/10/2026 1 1 Encounter Details Date Type Department Care Team (Latest Contact Info) Description 05/15/2025 2:45 PM CDT Office Visit Department of Ophthalmology in [place], [place] [address] [place] [phone] Martell Ramirez M.D. [address] [place] [phone] Subluxation Lens Right (Primary Dx); Aphakia Left Eye Social History Tobacco Use Types Packs/Day Years Used Date Smoking Tobacco: Former Cigarettes Q uit: 05/19/2006 Passive Smoke Exposure: Never Smokeless Tobacco: Never Alcohol Use Standard Drinks/Week Comments Not Currently 3 (1 standard drink = 0.6 oz pur e alcohol) hasn't for months [facility] Utilities Answer Date Recorded In [...] your living situation today? I have a [facility] place to live 01/20/2025 Education Answer Date Recorded What is the highest level of school you have completed or the highest degree you have received? 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 - 05/15/2025 2:45 PM CDT This patient was referred by Martell Ramirez M.D.. Seen today for complicated cataract extraction right eye with aphakia # Aphakia left eye - status post complicated cataract surgery left eye February 2025 at [facility] # aphakia right eye - status post complicated cataract surgery right eye 01/13/25 at [facility] - now status post ssiol OD OCT Macula: 05/15/2025 Right eye: flat, good foveal contour Left eye: flat, good foveal contour #1 Status post 25G pars plana vitrectomy/SSIOL, right eye (Ramirez/Gross) MX60 +16.0D for -0.49 Doing well. No further restrictions OD Call if decreased vision, increased photophobia, pain, discharge or increased redness occurs. 05/15/2025 Now unfortunately the left eye has a RLM post complicated CEIOL last week. Now status post 25g PPV/PPL/SSIOL OS - aim distance 03/31/25 (MX60 +16.5D for - 0.32) Ramirez #POM1 Doing well. Off drops. No activity restrictions. Call if decreased vision, increased photophobia, pain, discharge or increased redness occurs. Follow-up retina prn, ok for updated refraction with [facility] documented in this encounter Plan of Treatment Not on file documented as of this encounter Visit Diagnoses Diagnosis Subluxation Lens Right- Primary Aphakia Left Eye documented in this encounter Additional Health Concerns Assessment Noted Time PHQ-9 Depression Total Score: 3 03/13/20 14 8:24 AM CDT documented as of this encounter Care Teams Bar Turner Relationship Specialty Start Date End Date Elsewhere, Pcp PCP - General Internal Medicine 01/17/23 documented as of this encounter
--- OUTSIDE RECORDS SUMMARY | 2025-05-27 10:43 | XMS_ITS ---
Author Organization [facility] Address [address] [place] [address] [address] [place] [address] Care Team Providers Care Repossession Agent Name Role Phone Mary Ruggiero Primary Care Provider Johny Law Unavailable [phone] Jean Marie Deluca PA-C Unavailable Unavailable REASON FOR VISIT pre/post 05/29 Medications Medication SIG (Take, Route, Frequency, Duration) Notes Start Date End Date Status levoFLOXacin Active Lisinopril-hydroCHLOROthiazi de 20-12.5 MG TAKE 1 TABLET BY MOUTH EVERY DAY Oral; Duration: 90 Days Active oxyCODONE HCl 10 MG 1 tablet as needed Orally TID Active Venlafaxine HCl ER 150 MG Oral; Duration: 90 Days Active Pregabalin 150 MG 1 capsule Oral Twice a day; Duration: 30 days 01/03/2023 Active hydrOXYzine HCl 25 MG Oral; Duration: 15 Days Active Atorvastatin Calcium 10 MG Oral; Duration: 90 Days Active Alendronate Sodium 70 MG Oral; Duration: 84 Days Active Tamsulosin HCl 0.4 MG Oral; Duration: 90 Days Active Mirtazapine 15 MG Oral; Duration: 90 Days Active Potassium Chloride ER 20 MEQ Oral; Duration: 90 Days Active Zolpidem Tartrate 10 MG Oral; Duration: 30 Days Active Triamcinolone Acetonide 0.1 % APPLY TOPICALLY TO THE AFFECTED AREA THREE TIMES DAILY External; Duration: 15 Days Active Encounters Encounter Location Date Provider Diagnosis [facility] [address] [place] [address] [address] [place] [address] 05/27/2025 Johny Serrato Plan Of Treatment No Information Progress Notes * Osvaldo CEJADOB:1955 (69 yo M)Acc No.[id number]:05/27/2025 Patient: Osvaldo JAMES :1955 A ge:69 Y S ex:Male Phone: Address:[address] [place] [address] [address] , [place], [place] [address] Subjective: * Chief Complaints: * P re/post 05/29 * Medical History: * Surgical History: * Hospitalization/Major Diagno stic Procedure: * Medications: T akinglevoFLOXacin oxyCODONE HCl 10 MG Tablet 1 tablet as needed Orally TID Potassium Chloride ER 20 MEQ Tablet Extended Release Oral Zolpidem Tartrate 10 MG Tablet Oral Triamcinolone [...] 1 capsule Oral Twice a day Taking levoFLOXacin Taking oxyCODONE HCl 10 MG Tablet 1 tablet as needed Orally TID Taking Potassium Chloride ER 20 MEQ Tablet Extended Release Oral Taking Zolpidem Tartrate 10 MG Tablet Oral [...] Capsule 1 capsule Oral Twice a day DiscontinuedCalcitonin (Tecumseh) 200 UNIT/ACT Solution Nasal Medication List reviewed and reconciled with the patientDiscontinued Calcitonin ([place]h) 200 UNIT/ACT Solution Nasal Medication List reviewed and reconciled with the patient Objective: * Vitals: * Physical Examination: Assessment: Plan: * Treatment: * Procedure Codes: * true * Date: Generated for Sergey gant/Tonia/eTransmitting on: 0 06/09/2025 08:22 AM CDT
--- OUTSIDE RECORDS SUMMARY | 2025-05-29 05:15 | XMS_ITS ---
Author Organization [facility] Address [address] [place] [address] [address] [place] [address] Care Team Providers Care Irish Moss Gatherer Name Role Phone Mary Ruggiero Primary Care Provider UnavailJohny Stewart Unavailable [phone] Jean Marie Deluca PA-C Unavailable Unavailable REASON FOR VISIT LOCAL Bilateral L4-L5 TFEs Encounters Encounter Location Date Provider Diagnosis [facility] [address] [facility] [address] [place] [address] 05/29/2025 Johny Serrato Radiculopathy, lumbar region M54.16 Assessments Encounter Date Diagnosis (ICD Code) Assessment Notes Treatment Notes Treatment Clinical Notes Section Notes 05/29/2025 Radiculopathy, lumbar region (ICD-10 - M54.16) Plan Of Treatment No Information Progress Notes * Osvaldo CEJADOB:1955 (69 yo M)Acc No.[id number]:05/29/2025 Patient: Tyrell Osvaldo CADE Provider: Cassiyd eSrrato M.D. :1955 A ge:69 Y S ex:Male Date:05/29/2025 Phone: Address:[place] [address], [place] Pcp:Mary Ruggiero * Billing Information: * Visit Code: * Procedure Codes: 63356 Transforaminal L or S single. Modifiers: 50 A4209 5 cc - 19 cc gauge syringe. A4930 Gloves, size 8. Units: 2.00. A4215 Gotham only Sterile any size each. Units: 2.00. A4550 Spinal Support Tray. Q9967 Omnipaque 300 mgl/mL. Units: 3.00. J0665 Inj, bupivacaine, nos, 0.5mg. J1100 Dexamethasone/Decadron 1ml. Units: 2.00. Modifiers: JZ * Sign off status: Completed true * Provider: Cassidy Serrato M.D. Date: 05/29/2025 Generated for Sergey gant/Tonia/Rubénitting on: 06/09/2025 08:20 AM CDT
[2025-06-09 07:50] VITALS: BP 116/54; PULSE 82; RESP 16; TEMP 36.4; O2SAT 99; BMI 42.4
--- NOTE | 2025-06-09 08:16 | ED.MALEGU ---
HPI - Male Genitourinary General Date Seen: 06/09/25 Chief complaint: Urogenital Problems, Male Stated complaint: male urologic issue Time Seen by Provider: 06/09/25 07:55 Source: patient, family, RN notes reviewed and old records reviewed Mode of arrival: ambulatory Limitations: no limitations History of Present Illness HPI Narrative: Patient is 69-year-old gentleman who presents ambulatory to the emergency room for evaluation of 7 days of bleeding, he has blood in his suprapubic catheter. It has been variable in presentation but there has always been blood there for 7 days. A lot of clots, was able to empty the bag this morning. They have been flushing his catheter. In the past he has had history of UTIs. Last treated approximately a week ago. He notes that he is have bleeding also from his penis, does not pass a lot of or if any urine from there also. No history of trauma injury, he is on no anticoagulants. I do note in his chart he has a history of alcoholic cirrhosis. Denies being lightheaded, chest pain shortness of breath, no history of any other bleeding. No history of previous transfusions. Indication for suprapubic catheter was placed of 1 year ago, at [address], it sounds like from the patient's recollection of this there was a false passage created. And some bleeding from his prostate, this necessitated a transfer to [facility], and placement of a suprapubic catheter. Catheter was last changed 1 week ago by home health. Followed by [facility]. He last called the [facility] , on Monday, they have not returned his call. This is some mild abdominal discomfort associated with this. No nausea no vomiting, no diarrhea associated with this. No other stick matted of suggest infection. Related Data Home Medications ?Medication ?Instructions ?Recorded ?Confirmed atorvastatin 10 mg tablet 10 mg PO DAILY 02/12/24 04/08/25 duloxetine 60 mg capsule,delayed 120 mg PO DAILY 02/12/24 04/08/25 release ferrous sulfate 325 mg (65 mg 325 mg PO DAILY 02/12/24 04/08/25 iron) tablet (FeroSul) oxycodone 10 mg tablet 10 mg PO TID PRN 02/12/24 04/08/25 acetaminophen 325 mg tablet 650 mg PO Q6H PRN 08/27/24 04/08/25 calcium 500 mg (as 1 tab PO DAILY 08/27/24 04/08/25 carbonate)-vitamin D3 10 mcg (400 unit) tablet (Calcium 500 + D) mirabegron 50 mg tablet,extended 50 mg PO DAILY 08/27/24 04/08/25 release 24 hr pantoprazole 40 mg tablet,delayed 40 mg PO BID 08/27/24 04/08/25 release pregabalin 25 mg capsule 25 mg PO BID 08/27/24 04/08/25 vitamin E 670 mg (1,000 unit) 670 mg PO DAILY 08/27/24 08/27/24 capsule amoxicillin 500 mg capsule 2,000 mg PO 04/08/25 buspirone 15 mg tablet 15 mg PO BID 04/08/25 04/08/25 spironolactone 50 mg tablet 100 mg PO DAILY 04/08/25 04/08/25 tamsulosin 0.4 mg capsule 0.8 mg PO DAILY 04/08/25 04/08/25 Previous Rx's ?Medication ?Instructions ?Recorded furosemide 40 mg tablet 40 mg PO DAILY #7 tabs 02/28/24 lactulose 20 gram/30 mL oral 20 g (30 mL) PO BID 30 days #1,800 08/28/24 solution mL Allergies Allergy/AdvReac Type Severity Reaction Status Date / Time metformin AdvReac Intermediate Diarrhea Verified 04/08/25 14:12 Review of Systems Status of ROS: Reports: 10 or more systems reviewed and unremarkable except as noted in History and below [facility] Medical History Urinary retention ?R33.9 - Retention of urine, unspecified (ICD-10) GI bleed ?K92.2 - Gastrointestinal hemorrhage, unspecified (ICD-10) Alcoholic cirrhosis of liver with ascites ?K70.31 - Alcoholic cirrhosis of liver with ascites (ICD-10) Heart failure with preserved ejection fraction ?I50.30 - Unspecified diastolic (congestive) heart failure (ICD-10) Alcohol use disorder ?F10.90 - Alcohol use, unspecified, uncomplicated (ICD-10) 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 (ICD-10) Chronic insomnia ?F51.04 - Psychophysiologic insomnia (ICD-10) Thrombocytopenia ?D69.6 - Thrombocytopenia, unspecified (ICD-10) Vitamin D deficiency ?E55.9 - Vitamin D deficiency, unspecified (ICD-10) Morbid obesity with BMI of 40.0-44.9, adult ?E66.01 - Morbid (severe) obesity due to excess calories (ICD-10) ?Z68.41 - Body mass index [BMI] 40.0-44.9, adult (ICD-10) Infected prosthetic knee joint ?T84.59XA - Infection and inflammatory reaction due to other internal joint prosthesis, initial encounter (ICD-10) ?Z96.659 - Presence of unspecified artificial knee joint (ICD-10) Restless leg syndrome ?G25.81 - Restless legs syndrome (ICD-10) Diastasis of rectus abdominis ?M62.08 - Separation of muscle (nontraumatic), other site (ICD-10) Incarcerated ventral hernia ?K43.6 - Other and unspecified ventral hernia with obstruction, without gangrene (ICD-10) Chronic venous insufficiency ?I87.2 - Venous insufficiency (chronic) (peripheral) (ICD-10) Obstructive sleep apnea ?G47.33 - Obstructive sleep apnea (adult) (pediatric) (ICD-10) Hypertension ?I10 - Essential (primary) hypertension (ICD-10) Depression with anxiety ?F41.8 - Other specified anxiety disorders (ICD-10) Prostate cancer ?C61 - Malignant neoplasm of prostate (ICD-10) Surgical History Hx of colonoscopy ?Z98.890 - Other specified postprocedural states (ICD-10) Status post total right knee replacement ?Z96.651 - Presence of right artificial knee joint (ICD-10) Social History Narrative: , Rsoibel was here with him today. Denies alcohol use having quit 2 years ago. Denies tobacco and recreational drug use. What is your current living situation?: I presently have a place to live Problems where you live: no known problems Problems where you live details: N/A In the past 12 months, utilities in danger of being shut off: no In past 12 months, lack of transportation kept you from medical appts, meetings, work, or getting things needed for daily living: no In the past 12 mos, have been you worried that your food would run out before you had money to buy more?: never true In the past 12 mos, the food you bought just didn't last and you didn't have money to buy more?: never true Smoking Status: Never smoker Do you use any of these nicotine containing products: None How often do you have a drink containing alcohol: never How often do you have six or more drinks on one occasion: Never AUDIT-C Alcohol total score: 0 Non-prescribed substance use: denies use Caffeine: Yes How often does anyone, including family, friends and others, physically hurt you: never How often does anyone, including family, friends and others, insult or talk down to you: never How often does anyone, including family, friends and others, threaten you with harm: never How often does anyone, including family, friends and others, scream or curse at you: never service: No Exam Narrative: Exam Narrative: Patient is seen in room 2, he is in no distress, with normal vital signs. Abdomen is soft and obese, I do not see any shifting dullness. But a very large abdomen is noted, suprapubic catheter is noted, no redness no blood arising from this area, little bit of dried blood on his penis is noted. Within his bag, he has a lot of blood, dark, with some clots mild bruising is noted on his abdomen, Const: Vital Signs, click to edit/add: Vital Signs - 24 hr 06/09/25 07:50 06/09/25 11:49 Temperature 97.5 F L Pulse Rate [Pulse Oximeter] 82 85 Respiratory Rate 16 18 Blood Pressure [Ri ght Upper Arm] 116/54 L 139/52 L Pulse Oximetry 99 95 Oxygen Delivery Me thod Room Air Room Air Course Vital Signs Vital signs: Initial Vital Signs Temperature 97.5 F L 06/09/25 07:50 Temperature Source Temporal Artery Scan 06/09/25 07:50 Pulse Rate 82 06/09/25 07:50 Respiratory Rate 16 06/09/25 07:50 Blood Pressure 116/54 L 06/09/25 07:50 Blood Pressure Mean 74 06/09/25 07:50 Blood Pressure Position Sitting 06/09/25 07:50 Pulse Oximetry 99 06/09/25 07:50 Oxygen Delivery Method Room Air 06/09/25 07:50 Vital Signs Temperature 97.5 F L 06/09/25 07:50 Pulse Rate 82 06/09/25 07:50 Respiratory Rate 16 06/09/25 07:50 Blood Pressure 116/54 L 06/09/25 07:50 Pulse Oximetry 99 06/09/25 07:50 Oxygen Delivery Method Room Air 06/09/25 07:50 Temperature 97.5 F L 06/09/25 07:50 Pulse Rate 85 06/09/25 11:49 Respiratory Rate 18 06/09/25 11:49 Blood Pressure 139/52 L 06/09/25 11:49 Pulse Oximetry 95 06/09/25 11:49 Oxygen Delivery Method Room Air 06/09/25 11:49 MDM - Male Genitourinary MDM Narrative Medical decision making narrative: Patient presents with bleeding is catheter, history of alcoholic cirrhosis, with previous GI bleed, he likely has an elevated INR. We will go ahead and get some labs on him. Bladder scan shows a 124 mL within it. This is reassuring that he is not in retention. Possibility of infection is also thought of, although I think this is little less likely. May Need transfer to [facility] for further care that we cannot supply here being Urology. Differential Diagnosis Differential diagnosis: Likely urinary tract infection, prostatitis and acute retention of urine Lab Data Attestation: I reviewed the patient's lab results. Labs: Lab Results 06/09/25 06/09/25 Range/Units 08:16 08:34 WBC 5.34 (4.50-11.00) K/uL RBC 3.81 L (4.30-5.90) m/uL Hgb 11.9 L (13.5-17.5) gm/dL Hct 36.5 L (37.0-53.0) % MCV 96 (80-100) fL MCH 31 (26-34) pg MCHC 33 (32-36) gm/dL RDW Coeff of Renee 16.0 H (11.5-15.5) % Plt Count 121 L (140-440) K/uL Neut % (Auto) 74.9 H (42.0-72.0) % Lymph % (Auto) 9.2 L (20-44) % [place] % (Auto) 10.3 (0.0-11.0) % Eos % (Auto) 4.1 (0.0-7.0) % Baso % (Auto) 0.9 (0.0-3.0) % Neut # (Auto) 4.00 (1.7-7.0) K/uL Lymph # (Auto) 0.50 L (0.90-2.90) K/uL [place] # (Auto) 0.60 (0.00-0.90) K/UL Eos # (Auto) 0.22 (0.00-0.50) K/uL Baso # (Auto) 0.05 (0.00-0.30) K/uL Abs Immat Gran (auto) 0.03 (0.00-0.30) K/uL Imm/Tot Granulo (auto) 0.6 % INR 1.35 H (0.91-1.10) APTT 30 (23-33) Seconds Sodium 136 (135-149) mmol/L Potassium 4.2 (3.6-5.1) mmol/L Chloride 106 (96-114) mmol/L Carbon Dioxide 24 (20-32) mmol/L Anion Gap 6 L (7-15) mEq/L BUN 15 (7-30) mg/dL Creatinine 1.0 (0.5-1.5) mg/dL Estimated Creat Clear 69.35 Estimated GFR 82 ml/min Glucose 160 H (60-115) mg/dL Lactate 1.0 (0.5-1.9) mmol/L Calcium 8.7 (8.4-10.6) mg/dL Total Bilirubin 0.8 (0.1-1.5) mg/dL Direct Bilirubin 0.3 (0.0-0.5) mg/dL AST 34 (12-35) U/L ALT 27 (4-50) U/L Alkaline Phosphatase 79 (40-150) U/L Total Protein 6.3 (6.0-8.3) g/dL Albumin 3.2 L (3.3-5.0) g/dL Urine Color Red A (Yellow) Urine Appearance Turbid A (Clear) Urine pH 5.5 (5.0-8.5) Ur Specific [place] 1.020 (1.000-1.030) Urine Protein 2+ A (Negative) Urine Glucose (UA) Negative (Negative) Urine Ketones Negative (Negative) Urine Blood 3+ A (Negative) Urine Nitrite Negative (Negative) Urine Bilirubin Negative (Negative) Urine Urobilinogen 0.2 (0.2-1.0) Ur Leukocyte Esterase Trace A (Negative) Urine RBC >100 A (0-2) Urine WBC 2-5 (0-5) Ur Squamous Epith Cells None (None-Few) Urine Bacteria None (None) Discharge Plan Discharge Clinical Impression: Hematuria, Suprapubic catheter Patient Disposition: Xfer Other Discharge Location: [facility] Condition: Stable Instructions: Hematuria (ED) Additional Instructions: Transfer by private vehicle to [facility] the hospital accepting doctor Dr. Gutiérrez. Activity Level: Light activity Prescriptions: No Action atorvastatin 10 mg tablet 10 mg PO DAILY ferrous sulfate [FeroSul] 325 mg (65 mg iron) tablet 325 mg PO DAILY duloxetine 60 mg capsule,delayed release(DR/EC) 120 mg PO DAILY oxycodone 10 mg tablet 10 mg PO TID PRN furosemide 40 mg tablet 40 mg PO DAILY Qty: 7 2RF pregabalin 25 mg capsule 25 mg PO BID pantoprazole 40 mg tablet,delayed release (DR/EC) 40 mg PO BID mirabegron 50 mg tablet extended release 24 hr 50 mg PO DAILY vitamin E 670 mg (1,000 unit) capsule 670 mg PO DAILY acetaminophen 325 mg tablet 650 mg PO Q6H PRN calcium carbonate-vitamin D3 [Calcium 500 + D] 500 mg-10 mcg (400 unit) tablet 1 tab PO DAILY lactulose 20 gram/30 mL Solution 20 g PO BID 30 Days Qty: 1800 1RF amoxicillin 500 mg capsule 2,000 mg PO buspirone 15 mg tablet 15 mg PO BID tamsulosin 0.4 mg capsule 0.8 mg PO DAILY spironolactone 50 mg tablet 100 mg PO DAILY Stand Alone Forms: MyHealth Info Instructions
--- OUTSIDE RECORDS SUMMARY | 2025-06-09 08:20 | XMS_ITS ---
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
--- OUTSIDE RECORDS SUMMARY | 2025-06-09 08:20 | XMS_ITS | Encounter Summary ---
Author Organization [facility] Address [address] [place] [address] Care Team Providers Care Paramedic Supervisor Name Role Phone Mary Ruggiero PA-C Primary Care Provider [phone] Tanya Andrews APRN RESPIRATORY TECHNICIAN Unavailable [phone] Deep Pires MD Unavailable [phone] Reason for Visit * Reason Comments Medication Refill Encounter Details Date Type Department Care Team (Late st Contact Info) Description 05/25/[address] 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 Source: [place] [facility]. 06/25/2024 documented as of this encounter Care Teams Paramedic Supervisor Relationship Specialty Start Date End Date Mary Ruggiero PA-C [address] [place] [address] PCP - General 01/16/24 Tanya Andrews APRN RESPIRATORY TECHNICIAN [address] [facility] [address] [place] [address] Nurse Practitioner Urology 03/22/24 Deep Pires MD [address] [facility] [address] [place] [address] Assigned Surgical Provider 05/10/24 documented as of this encounter
--- OUTSIDE RECORDS SUMMARY | 2025-06-09 08:20 | XMS_ITS | Encounter Summary ---
Author Organization [facility] Address [address] [place] [address] Care Team Providers Care System Support Specialist Name Role Phone Mary Ruggiero PA-C Primary Care Provider [phone] Tanya Andrews APRN TELEVISION HOST Unavailable [phone] Deep Pires MD Unavailable [phone] Reason for Visit * Reason Comments Medication Refill Encounter Details Date Type Department Care Team (Late st Contact Info) Description 05/27/2024 Refill [facility] [address] [place] [phone] Robyn Keys, FEI TELEVISION HOST [address] [place] [address] Medication Refill Social History Tobacco Use Types [...] on file 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 Source: [facility]. 06/25/2024 documented as of this encounter Care Teams System Support Specialist Relationship Specialty Start Date End Date Mary Ruggiero PA-C [address] [place] [address] PCP - General 01/16/24 Tanya Andrews APRN TELEVISION HOST [address] [facility] [address] [place] [address] Nurse Practitioner Urology 03/22/24 Deep Pires MD [address] [facility] [address] [place] [address] Assigned Surgical Provider 05/10/24 documented as of this encounter
--- OUTSIDE RECORDS SUMMARY | 2025-06-09 08:20 | XMS_ITS | Clinical Summary ---
Author Organization [facility] Address [address] [place] [address] Care Team Providers Care Commanding Officer Traffic Division Name Role Phone Elsewhere, Pcp Primary Care Provider Unavailabl e Source Comments Patient records contain information from all sites at [facility]. For routine questions regarding patient records, call [phone] during business hours, M-F 8:00 AM - 5:00 PM Central Time. Record requests for emergency care only can be directed to [phone] at any time.[facility] Allergies Active Allergy Reactions Criticality Noted Date [...] tablet by mouth at bedtime. 6 Active lisinopril-hydr oCHLOROthiazide (for_PRINZIDE,Z ESTORETIC) 20-12.5 mg per tablet 1 tablet daily. [...] nasal spray Administer into nostril(s). 3 Active cholecalciferol (VITAMIN D3) 25 mcg (1,000 [...] drop 4 (four) times a day. 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 Date Type Department Care Team Description 05/15/2025 2:45 PM CDT Office Visit Department of Ophthalmology in [address] [address] Martell Ramirez M.D. Subluxation Lens Right (Primary Dx); Aphakia Left Eye 05/15/2025 2:15 PM CDT Ancillary Procedure Department of Ophthalmology in [address] [address] Martell Ramirez M.D. Retained Fragment Cataract Status Post Surgery Left 05/15/2025 1:00 PM CDT Ancillary Procedure Department of Ophthalmology in [address] [address] Martell Ramirez M.D. Retained Fragment Cataract Status Post Surgery Left 05/15/2025 12:45 PM CDT Ancillary Procedure Department of Ophthalmology in [address] [address] Martell Ramirez M.D. Retained Fragment Cataract Status Post Surgery Left 05/15/2025 12:10 AM CDT Ancillary Procedure Department of Ophthalmology 05/15/2025 12:05 AM CDT Ancillary Procedure Department of Ophthalmology 05/15/2025 Ancillary Procedure Department of Ophthalmology 04/10/2025 1:00 PM CDT Office Visit Department of Ophthalmology in [address] [address] Martell Ramirez M.D. Subluxation Lens Right (Primary Dx); Retained Fragment Cataract Status Post Surgery Left 04/07/2025 Clinical Communication Department of Ophthalmology in [address] [address] Martell Ramirez M.D. 04/01/2025 8:00 AM CDT Office Visit Department of Ophthalmology in [address] [address] Martell Ramirez M.D. Aphakia Left Eye (Primary Dx); Retained Fragment Cataract Status Post Surgery Left 03/31/2025 11:39 AM CDT Anesthesia Event [facility] [address] [place] [phone] Laly Carrillo 03/31/2025 11:37 AM CDT - 03/31/2025 1:45 PM CDT Surgery [facility] [address] [place] [phone] Martell Ramirez M.D. VITRECTOMY - PARS PLANA 25 GAUGE, LENSECTOMY, SCLERAL SUTURED INTRA OCULAR LENS, LEFT. 03/31/2025 8:31 AM CDT - 03/31/2025 2:00 PM CDT Hospital Encounter [facility] [address] [place] [phone] Martell Ramirez M.D. Discharge Disposition: Home or Self Care 03/18/2025 12:45 PM CDT Office Visit Department of Ophthalmology in [place], [place] [address] [place] [address] Martell Ramirez M.D. Retained Fragment Cataract Status Post Surgery Left (Primary Dx) 03/12/2025 Documentation Preoperative Evaluation Center in [place], [place] [address] [place] [address] Michelle Colorado, SCHOOL COMMUNITY RELATIONS COORDINATOR, C.N.P. 03/11/2025 Orders Only Department of Ophthalmology in [place], [place] [address] [place] [address] Corky Tracy, C.O.A. 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 Gender Identity Male 12/18/2017 8:54 AM [...] 03/31/2025 9:00 AM CDT Plan of Treatment Health Maintenance [...] - Risk 60-74 years 1-dose series) 2017 Depression Monitoring (PHQ-9 for quality tracking) 09/18/2024 Hemoglobin A1C 02/04/2025 08/07/2024, 04/0 12/2023, 01/12/2023, Additional history exists COVID-19 Vaccine (2 - 2024- season) 2025 12/09/2020 Influenza Vaccine (#1) 2025 Creatinine Level (Kidney Function Test) 05/09/2026 05/09/2025, 04/07/2025, 03/04/2025, Additional history exists Potassium Level 05/09/2026 05/09/2025, 07/2 09/2024, 03/04/2025, Additional history exists Sodium Level 05/09/2026 05/09/2025, 03/19, 03/04/2025, Additional history exists Diabetic Eye Exam 05/15/2026 05/15/2025, 03/18/2025 Colonoscopy 03/28/2027 03/28/2022, 03/17/2008 Colorectal Cancer Surveillance [...] this topic Medical Devices Implanted Type Area Roving Hauler Device Identifier Shelf Expiration Date Model / Serial / Lot Knee Implant Knee Implant Right: Knee Lens Env [id number] Bicnvx +16.0d - [id number] - [id number] Implanted:Qty: 1 on 01/20/2025 by Kamaljit Castro M.D. at [facility] Ocular Lens Right: [email or web address] 12/16/2026 [id number] / [id number] / [id number] Lens Env Mx60e Bicnvx +16.5d - [id number] - [id number] Implanted:Qty: 1 on 03/31/2025 by Martell Ramirez M.D. at [facility] Ocular Lens [employer] 12/16/2026 [id number] / [id number] Axonics Bladder Stimulator 4101-02/22/2023 Implanted:Qty: 1 on 02/22/2023 by Leatha Arora D.O. at [facility] Sacral Nerve Stimulator N/A: Pelvis [employer] 11/18/2023 4101 / [id number] / Description:Axonics Sacral S timulator Model# 4101 with lead Model# 1201 MRI conditional at 1.5T. Physicist coverage may be needed. Patient must bring remote to MRI appointment. See re dye hand scanning guidelines. Kristian Rodrigueznicole 12/25/23 [email or web address] Axonics Lead 1201 Implanted:Qty: 1 on 02/22/2023 by Leatha Arora D.O. at [facility] Stimulator Other N/A: Pelvis [employer] [id number] 07/28/2025 1201 / [id number] / Description:Axonics Sacral S timulator Model# 4101 with lead Model# 1201 MRI conditional at 1.5T. Physicist coverage may be needed. Patient must bring remote to MRI appointment. See re dye hand scanning guidelines. Kristian Rodrigueznicole 12/25/23 [email or web address] 1201 reference number Explanted Type Area Roving Hauler Device Identifier Shelf Expiration Date Model / Serial / Lot Axonics Trial Implanted:Qt y: 1 on 02/09/2023 by Leatha Arora D.O. at [facility]/[employer] Explanted: (Quantity not on file) Stimulator Other N/A: Sacrum [employer] [id number] 08/29/2025 1901 / / [id number] Axonics Trial Implanted:Qt y: 1 on 02/09/2023 by Leatha Arora D.O. at [facility]/[employer] Explanted: (Quantity not on file) Stimulator Other N/A: Sacrum [employer] [id number] 04/17/2025 1701 / / [id number] Procedures Procedure Name Priority Date/Time Associated Diagnosis Comments OPTICAL COHERENCE TOMOGRAPHY - MACULA/RETINA - OU - BOTH EYES Routine 05/15/2025 2:53 PM CDT Retained Fragment Cataract Status Post Surgery Left ULTRASOUND BIOMICROSCOPY - OS - LEFT Routine 05/15/2025 1:26 PM CDT Retained Fragment Cataract Status Post Surgery Left SCHEIMPFLUG TOMOGRAPHY (PENTACAM) - OS - LEFT EYE Routine 05/15/2025 1:18 PM CDT Retained Fragment Cataract Status Post Surgery Left OPHTHALMOLOGY IMAGE EXAM Routine 05/15/2025 12:10 AM CDT OPHTHALMOLOGY IMAGE EXAM Routine 05/15/2025 12:05 AM CDT OPHTHALMOLOGY IMAGE EXAM Routine 05/15/2025 12:00 AM CDT GLUCOSE POCT, B Routine 03/31/2025 12:12 PM CDT VITRECTOMY - PARS PLANA 25 GAUGE 03/31/2025 11:35 AM CDT Retained Fragment Cataract Status Post Surgery Left Case Notes @ PROGRAM MANAGEMENT INTERN 8:35, tpu 11 OPHTHALMOLOGY OFFICE VISIT (CLINIC) Routine 03/18/2025 2:00 PM CDT HEMOGLOBIN A1C, B Routine 08/07/2024 1:0 6 PM DUCK OPERATOR Primary Malignant Neoplasm Of Prostate (HCC) CREATININE WITH EGFR, S/P Routine 08/07/2024 12:53 PM DUCK OPERATOR Defect Ureteral Filling LIPID PANEL, S Routine 04/07/2014 3:16 PM CDT COMPREHENSIVE METABOLIC PANEL, S/P Routine 04/07/2014 3:16 PM CDT from Last 3 Months or Most Recently Relevant to Health Maintenance Results * Optical Coherence Tomography - Macula/Retina - OU - Both Eyes (05/15/2025 2:53 PM CDT) Narrative OPHTHALMOLOGY IMAGING EXAM - 05/15/2025 2:53 PM CDT See note from visit on 05/15/2025. us Martell Ramirez M.D. OPHTH TOMOGRAPHY Final Resu lt OPHTHALMOLOGY IMAGING EXAM * Ultrasound Biomicroscopy (UBM) - OS - Left Eye (05/15/2025 1:26 PM CDT) Narrative OPHTHALMOLGY NON-IMAGING ORDERS - 05/15/2025 2:53 PM CDT 05/15/2025 UBM Left Eye: UBM completed per Ramirez Protocol. JH Stable OS Martell Ramirez M.D. OPHEMANUEL ULTRASOUND Final Resu lt Performing Organization Address [facility] de Phone Number OPHTHALMOLGY NON-IMAGING ORDERS * Scheimpflug Tomography (Pentacam) - OS - Left Eye (05/15/2025 1:18 PM CDT) Narrative OPHTHALMOLOGY IMAGING EXAM - 05/15/2025 2:53 PM CDT Minimal astigmatism OU Martell Ramirez M.D. OPHEMANUEL OTHER Final Resul t Performing Organization Address [facility] de Phone Number OPHTHALMOLOGY IMAGING EXAM * Eyes Spectralis OCT-Ophthalmology Image Exam (05/15/2025 12:10 AM CDT) Only the most recent of3 resultswithin the time period is included. Narrative IIMS - 05/15/2025 2:25 PM CDT This order has been created and auto-finalized to support the import of images acquired without order. The clinical documentation to support these images can be found on the encounter that produced images. Provider Not In System IMG NON RAD IMAGING PROCE DURES Final Result Performing Organization Address [facility] de Phone Number IIMS NA * Glucose, POCT (03/31/2025 12:12 PM CDT) Glucose, POCT, B 75 70 - 140 mg/dL 03/31/2025 12:17 PM CDT PCSM Site Capillary 03/31/2025 12:17 PM CDT PCSM Blood 03/31/2025 12:1 2 PM CDT 03/31/2025 12:18 PM CDT Unknown Provider LAB POCT ORDERABLES-MANUAL Ingrid l Result POC [facility] [address] [place] [address], [facility] PCSM [facility] [place] P[facility] [address] [place] [address] * Ophthalmology office visit (clinic): Self; General (03/18/2025 2:00 PM CDT) Martell Ramirez M.D. OUTPATIENT RETURN VISITS Fi nal Result * Hemoglobin A1c (08/07/2024 1:06 PM DUCK OPERATOR) Hemoglobin A1c, B 4.1 4.0 - 5.6 % 08/07/2024 2:50 PM DUCK OPERATOR DTL Blood (Blood, Venous) 08/07/2024 1:06 PM DUCK OPERATOR 08/07/2024 1:42 PM DUCK OPERATOR Janice Salmon APRN, C.N.P., M.S.N. LAB BLOOD A DD-ON Final Result Performing Organization Address [facility]/ZIP Co de Phone Number [facility] [address] [place] [address], [facility] Laboratories[facility] [address] [place] [address] * (ABNORMAL) Lipid Panel (04/07/2014 3:16 PM CDT) Cholesterol, Total 173 0 - 200 MGDL POWERCHART HX HDL 42.0 40.0 - 60.0 MGDL POWERCHART Triglycerides 214(H) 0 - 150 MGDL POWERCHART Calculated LDL 88 0 - 100 MGDL POWERCHART Blood 04/07/2014 3:16 PM CDT Kush De La Vega M.D. LAB BLOOD ADD-ON Final Result Performing Organization Address City/[facility]/ZIP Co de Phone Number POWERCHART from Last 3 Months or Most Recently Relevant to Health Maintenance Insurance MEDIC[facility] Advance Directives For more information, please contact: [phone] * Full Code (Latest Code Status on File) Date Activated Date Inactivated Comments 02/09/2023 6:53 AM 02/09/2023 2:09 PM Question Answer Comments Full Code: Discussed Care Teams Commanding Officer Traffic Division Relationship Specialty Start Date End Date Elsewhere, Pcp PCP - General Internal Medicine 01/17/23
--- OUTSIDE RECORDS SUMMARY | 2025-06-09 08:20 | XMS_ITS | Encounter Summary ---
Author Organization [facility] Address [address] [place] [address] Care Team Providers Care Powerhouse Helper Name Role Phone Mary Ruggiero PA-C Primary Care Provider [phone] Tanya Andrews APRN FOSTER CARE WORKER Unavailable [phone] Deep Pires MD Unavailable [phone] Reason for Visit * Reason Comments Medication Refill Encounter Details Date Type Department Care Team (Late st Contact Info) Description 02/06/2024 Refill [facility] [address] [place] [phone] Robyn Keys, FEI FOSTER CARE WORKER [address] [place] [address] Medication Refill Social History Tobacco Use Types [...] on file 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 Source: [facility]. 06/25/2024 documented as of this encounter Care Teams Powerhouse Helper Relationship Specialty Start Date End Date Mary Ruggiero PA-C [address] [place] [address] PCP - General 01/16/24 Tanya Andrews APRN FOSTER CARE WORKER [address] [facility] [address] [place], [place] [address] Nurse Practitioner Urology 03/22/24 Deep Pires MD [address] [facility] [address] [place], [place] [address] Assigned Surgical Provider 05/10/24 documented as of this encounter
--- OUTSIDE RECORDS SUMMARY | 2025-06-09 08:20 | XMS_ITS | Encounter Summary ---
Author Organization [facility] Address [address] [place] [address] Care Team Providers Care Facilities Maintenance Worker Name Role Phone Mary Ruggiero PA-C Primary Care Provider [phone] Tanya Andrews APRN HABILITATIVE INTERVENTIONIST Unavailable [phone] Deep Pires MD Unavailable [phone] Reason for Visit * Reason Comments Medication Refill Encounter Details Date Type Department Care Team (Late st Contact Info) Description 05/29/2024 Refill [facility] [address] [place] [phone] Robyn Keys, FEI HABILITATIVE INTERVENTIONIST [address] [place] [address] Medication Refill Social History Tobacco Use Types [...] on file 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 Source: [facility]. 06/25/2024 documented as of this encounter Care Teams Facilities Maintenance Worker Relationship Specialty Start Date End Date Mary Ruggiero PA-C [address] [place] [address] PCP - General 01/16/24 Tanya Andrews APRN HABILITATIVE INTERVENTIONIST [address] [facility] [address] [place] [address] Nurse Practitioner Urology 03/22/24 Deep Pires MD [address] [facility] [address] [place] [address] Assigned Surgical Provider 05/10/24 documented as of this encounter
--- OUTSIDE RECORDS SUMMARY | 2025-06-09 08:22 | XMS_ITS | Patient Health Record ---
Author Organization [facility] Address [address] [place] [address] [address] [place] [address] Care Team Providers Care Ed Case Manager Name Role Phone Mary Ruggiero Primary Care Provider UnavailJohny Stewart Unavailable [phone] Jean Marie Deluca PA-C Unavailable Unavailable Armin Seaman Unavailable [phone] Praveen Pedersen Unavailable [phone] Negro Lawson Unavailable [phone] Allergies Allergen (clinical drug ingredient) Drug/Non Drug Allergy documented on EMR Reaction Allergy Type Onset Date Status metformin Metformin Unknown Drug Allergy Active Reason For Referral No Information Medications Medication SIG (Take, Route, Frequency, Duration) Notes Start Date End Date Status Mirtazapine 15 MG Oral; Duration: 90 Days Active Potassium Chloride ER 20 MEQ Oral; Duration: 90 Days Active Pregabalin 150 MG 1 capsule Oral Twice a day; Duration: 30 days 01/03/2023 Active Zolpidem Tartrate 10 MG Oral; Duration: 30 Days Active Triamcinolone Acetonide 0.1 % APPLY TOPICALLY TO THE AFFECTED AREA THREE TIMES DAILY External; Duration: 15 Days Active hydrOXYzine HCl 25 MG Oral; Duration: 15 Days Active Atorvastatin Calcium 10 MG Oral; Duration: 90 Days Active levoFLOXacin Active Lisinopril-hydroCHLOROthiazi de 20-12.5 MG TAKE 1 TABLET BY MOUTH EVERY DAY Oral; Duration: 90 Days Active oxyCODONE HCl 10 MG 1 tablet as needed Orally TID Active Venlafaxine HCl ER 150 MG Oral; Duration: 90 Days Active Alendronate Sodium 70 MG Oral; Duration: 84 Days Active Tamsulosin HCl 0.4 MG Oral; Duration: 90 Days Active Social History Tobacco Use: Social [...] W/U Status Risk Notes Problem Opioid dependence (01844944) Opioid dependence, uncomplicated (F11.20) Active confirmed Problem Chronic pain (63224172) Other chronic pain (G89.29) Active confirmed Problem Lumbosacral spondylosis without myelopathy (68363492) Spondylosis without myelopathy or radiculopathy, lumbosacral region (M47.817) Active confirmed Problem Lumbar radiculopathy (161541523) Radiculopathy, lumbar region (M54.16) Active confirmed Problem Muscle wasting disorder (04652957) Muscle wasting and atrophy, not elsewhere classified, multiple sites (M62.59) Active confirmed Problem Somatic dysfunction of lumbar region (997957327) Segmental and somatic dysfunction of lumbar region (M99.03) Active confirmed Problem Somatic dysfunction of sacral region (986604037) Segmental and somatic dysfunction of sacral region (M99.04) Active confirmed Problem Abnormal gait (33809387) Unsteadiness on feet (R26.81) Active confirmed Problem Low back pain (395916062) Low back pain, unspecified (M54.50) Active confirmed Problem Artificial knee joint present (708533980892) Knee joint replacement status (Z96.659) Active confirmed Problem Sacroiliitis (53131772) Sacroiliitis (M46.1) Active confirmed Vital Signs Blood pressure diastolic 72 mm Hg 04/15/2025 Height 72 in 04/15/2025 Blood pressure systolic 116 mm Hg 04/15/2025 Weight 264 lbs 04/15/2025 BMI 35.8 kg/m2 04/15/2025 Procedures Procedure Date Ordered Date Performed Result Body Sit e Intervention: 05/07/2025 05/20/2025 sched 05/29 Intervention: 12/12/2024 12/19/2024 sched 01/02 Encounters Encounter Location Date Provider Diagnosis [facility] [address] [place] [address] [address] [place] [address] 01/01/2025 Negro Lawson [facility] [address] [place] [address] 01/07/2025 Negro Lawson [facility] [address] [place] [address] 03/24/2025 Negro Lawson [facility] [address] [place] [address] 05/06/2025 Negro Lawson [facility] [address] [place] [address] 05/27/2025 Johny Serrato [address] [facility] [address] [place] [address] 12/12/2024 Armin Seaman Spondylosis without myelopathy or radiculopathy, lumbosacral region M47.817 ; Low back pain, unspecified M54.50 and Other chronic pain G89.29 [address] [facility] [address] [place] [address] 03/25/2025 Praveen Pedersen Low back pain, unspecified M54.50 ; Spondylosis without myelopathy or radiculopathy, lumbosacral region M47.817 and Other chronic pain G89.29 [address] [facility] [address] [place] [address] 04/15/2025 Praveen Pedersen Other chronic pain G89.29 and Radiculopathy, lumbar region M54.16 [address] [facility] [address] [place] [id number] 05/29/2025 Johny Serrato Radiculopathy, lumbar region M54.16 [address] [facility] [address] [place] [phone] 01/02/2025 Johny Serrato Spondylosis without myelopathy or radiculopathy, lumbosacral region M47.817 Assessments Encounter Date Diagnosis (ICD Code) Assessment Notes Treatment Notes Treatment Clinical Notes Section Notes 12/12/2024 Spondylosis without myelopathy or radiculopathy, lumbosacral region (ICD-10 - M47.817) 12/12/2024 Low back pain, unspecified (ICD-10 - M54.50) 03/25/2025 Spondylosis without myelopathy or radiculopathy, lumbosacral region (ICD-10 - M47.817) 03/25/2025 Low back pain, unspecified (ICD-10 - M54.50) 04/15/2025 Other chronic pain (ICD-10 - G89.29) Osvaldo returns to clinic today for a follow-up evaluation regarding his chronic low back pain. I have reviewed the [facility] database and did not find any inconsistencies. We discussed his current symptoms and medications. I will continue with a treatment plan consisting of conservative therapy at this time. I reviewed his lumbar MRI dated 04/02/2025 from [facility] and discussed the findings with him to include new/significantly progresses from 11/14/22 T1/T2 marrow signal throughout lower thoracic, lumbar and bony pelvis. I explained that he should proceed with a scheduled contrast MRI for further evaluation. He consented to signing a AYAKA to his PCP, Mary Ruggiero PA-C and I discussed his ongoing plan of care with her via the telephone. He plans to proceed with the updated lumbar MRI with contrast in 04/2025. Pending his imaging findings, I will consider a bilateral L4-5 TFE. He will need to recover from his LLE cellulitis and complete his current work up for possible metastatic disease. This treatment plan was reviewed with Osvaldo, and he was agreeable. I will continue to monitor his progress and he will follow up after workup and resolution of his left lower extremity cellulitis. Plan: 1. Reviewed lumbar MRI dated 04/02/2025 2. AYAKA to Mary Ruggiero - discussed ongoing plan of care via telephone 3. Proceed with lumbar MRI w/ contrast 4. Consider bilateral L4-5 TFE 5. Follow up after workup and resolution of LLE cellulitis Discharge instructions reviewed verbally. Discussed the risks/benefits of prescribed medication. The patient was instructed to return to the office as scheduled and call with any questions, problems or concerns. Lumbar MRI ([facility])Exam Date: 04/02/2025IMPRE SSION: 1. Diffusely decreased T1/T2 marrow signal throughout the visualized lower thoracic and upper lumbar spine, as well as scattered throughout the lower lumbar spine and included bony pelvis, new/significant ly progressed relative to 11/14/2022. 2. While nonspecific, neoplastic process/metasta tic disease are among the differential considerations. Clinical correlation advised. Postcontrast imaging could be obtained for further characterizatio n. 3. Partially visualized fractures of the bilateral sacral ala and S3 body. 4. At L4-L5, right lateral recess narrowing contacting the descending right L5 nerve root. 5. At L5-S1, mild-moderate right neural foraminal narrowing, and right lateral recess narrowing contacting the descending right S1 nerve root. 04/15/2025 Radiculopathy, lumbar region (ICD-10 - M54.16) 05/29/2025 Radiculopathy, lumbar region (ICD-10 - M54.16) 01/02/2025 Spondylosis without myelopathy or radiculopathy, lumbosacral region (ICD-10 - M47.817) 03/25/2025 Other chronic pain (ICD-10 - G89.29) Osvaldo returns to clinic today for a follow-up evaluation regarding his chronic low back pain. I have reviewed the [facility] database and did not find any [...] I have sent an order to [facility] for further evaluation of his symptoms. Regarding [...] any questions, problems or concerns. 12/12/2024 Other Maurilio Dong , am serving as a scribe [...] the decisions made by them. 03/25/2025 Other Tara Dong , am serving [...] performed and the decisions made by them. 04/15/2025 Other Angy Dong am serving as a scribe to document services personally performed by Praveen Pedersen PA-C, based upon my observations and the provider's statements to me. All documentation has been reviewed by the aforementioned CHIP. Praveen Dong PA-C, attest that the above named individual is acting in scribe capacity, has observed my performance of the services and has documented them in accordance with my direction. The documentation recorded by the scribe accurately reflects the service I personally performed and the decisions made during the clinic visit. Plan Of Treatment Pending Test Test Name Order Date MRI : Lumbar 03/25/2025 Insurance Providers Payer Name Payer Address Payer Phone Subscriber Number Group Number Insured Name Patient Relationship to Insured Coverage Start Date Coverage End Date [facility] Advantage [address] [address] [place] [address] [phone] [id number] Osvaldo Zuniga Self - patient is the insured 2 Medicare Part B [employer]. [address] [place] [address] [phone] [id number] Osvaldo Zuniga Self - patient is the insured 2 Medical (General) History Medical History History ICD Code Anxiety Prostate cancer Depression Hypertension Hyperlipidemia Sleep apnea Prediabetes Surgical History Surgery Date(Month/Year) Right TKA replacement 09/2024 Bladder Stimulator Implant 02/2023 Right TKA and revision 2019 Hospitalization History Reason Date(Month/Year) Elevated ammonia levels Staph infection x2 Surgical reasons
--- OUTSIDE RECORDS SUMMARY | 2025-06-09 08:22 | XMS_ITS | Clinical Summary ---
Author Organization [facility] Address [address] [place] [address] Care Team Providers Care Shopfitter Name Role Phone Mary Ruggiero PA-C Primary Care Provider [phone] Tanya Andrews APRN DYE HOUSE HELPER Unavailable [phone] Deep Pires MD Unavailable [phone] Allergies Active Allergy Reactions Criticality Noted Date [...] of prosthetic knee 10/03/2024 Septic joint 01/15/2024 Social History Tobacco Use [...] in an abandoned building, in an overnight correction, or couch-surfing.) Yes 10/04/2024 Are you worried [...] on file Legal Sex Male 1:14 PM HARD HAT DIVER Gender Identity Not on file Sexual Orientation Not on file Last Filed Vital Signs Vital Sign Reading Time Taken Comments Blood Pressure 142/48 10/04/2024 7:57 AM HARD HAT DIVER Pulse 76 10/04/2024 7:57 AM HARD HAT DIVER Temperature 36.9 C (98.4 F) 10/04/2024 7:57 AM HARD HAT DIVER Respiratory Rate 16 10/04/2024 7:57 AM HARD HAT DIVER Oxygen Saturation 99% 10/04/2024 7:57 AM HARD HAT DIVER Inhaled Oxygen Concentration - - Weight 135.9 kg (299 lb 11.2 oz) 2024 10:33 AM HARD HAT DIVER Height 182.9 cm (6' 0.01) 10/03/2024 1 0:33 AM HARD HAT DIVER Body Mass Index 40.64 10/03/2024 10:33 AM HARD HAT DIVER Plan of Treatment Health Maintenance Due Date [...] MEDICARE ANNUAL WELLNESS VISIT 03/03/2024 03/03/2023, 07/06/2020 FIT 03/01/2025 03/01/2024 COVID-19 VACCINE ( - season) 2025 INFLUENZA VACCINE (#1) 2025 DIABETES SCREENING 10/03/2027 10/03/2024, 0 01/29/2024, 01/23/2024, Additional history exists ADVANCE CARE PLANNING 05/08/2029 05/08/2024 COLONOSCOPY 03/28/2032 03/28/2022, 0109/2018, 09/17/2018 COLORECTAL CANCER SCREENING 03/28/2032 DTAP/TDAP/TD VACCINE (4 - Td or Tdap) 10/03/2033 10/03/2023, 05/13/2013, 12/23/2002 HEPATITIS C SCREENING Completed 03/05/2024, 017 AORTIC ANEURYSM SCREENING (SYSTEM ASSIGNED) Completed 11/21/2024, 08/07/2024, 07/31/2024, Additional history exists PHQ-2 (once per calendar year) Completed 02/14/2025, 02/14/2025, 07/08/2024, Additional history exists HPV VACCINE (No Doses Required) Completed MENINGITIS VACCINE Aged Out No longer eligible based on patient's age to complete this topic Medical Devices Implanted Type Area Rehabilitation Counselor Device Identifier Shelf Expiration Date Model / Serial / Lot Imp Bone Cement Strk Simplex Hv Full Dose 6194-1-001 - [id number] Implanted:Qty: 3 on 10/03/2024 by Caleb Garcia MD at [facility] Cement, Bone Right: Knee [employer] [id number] 09/17/2025 6194-1-00 1 / [id number] E Persona Revision Femoral Distal Augment, Size 9, 9+, 5mm Thickness Implanted:Qty: 1 on 10/03/2024 by Caleb Garcia MD at [facility] Total Joint Componen t/Insert Right: Knee JAMES [id number] 05/18/2029 42-5566-0 66- [id number] Persona Revision Femur Cemented Plus, Right, Size 9+ Implanted:Qty: 1 on 10/03/2024 by Caleb Garcia MD at [facility] Total Joint Componen t/Insert Right: Knee [employer]AMES [id number] 07/07/2034 42-5046-0 66-12 [id number] Persona Revision Femoral [place], Size Medium Implanted:Qty: 1 on 10/03/2024 by Caleb Garcia MD at [facility] Total Joint Componen t/Insert Right: Knee [employer]AMES [id number] 05/18/2029 42-5450-0 10- [id number] Persona Revision Tibial [place]one, Size Large Implanted:Qty: 1 on 10/03/2024 by Caleb Garcia MD at [facility] Total Joint Componen t/Insert Right: Knee JAMES [id number] 12/27/2030 42-5450-0 - [id number] Stem Tib 75+ Mm 14mm Persona Strg Kn Smth Rev Strl Lf - [id number] Implanted:Qty: 1 on 10/03/2024 by Caleb Garcia MD at [facility] Total Joint Componen t/Insert Right: Knee [employer] [id number] 04/24/2034 42-5600-0 75- [id number] 25mm Glover Femoral Cement Restrictor Implanted:Qty: 1 on 10/03/2024 by Caleb Garcia MD at [facility] Total Joint Componen t/Insert Right: Knee [employer] 03/15/2034 [id number] / / [id number] Persona Revision Vivacit-E Polyethylene Articular Surface, Fixed Bearing, Cck, Right, 14mm Height Implanted:Qty: 1 on 10/03/2024 by Caleb Garcia MD at [facility] Total Joint Componen t/Insert Right: Knee JAMES [id number] 02/06/2029 42-5228-0 - [id number] Persona Vivacit-E Polyethylene, Right, 14mm, Cps, Fixed Bearing Articular Surface Implanted:Qty: 1 on 10/03/2024 by Caleb Garcia MD at [facility] Total Joint Componen t/Insert Right: Knee JAMES [id number] 02/28/2029 42-5226-0 07- [id number] Cmpnt Tib Persona F Kn Rt Npor Rev Fx Strl Lf - [id number] Implanted:Qty: 1 on 10/03/2024 by Caleb Garcia MD at [facility] Total Joint Componen t/Insert Right: Knee [employer] [id number] 05/30/2034 42-5420-0 - [id number] Stem Tib 75+ Mm 14mm Persona Strg Kn Smth Rev Strl Lf - [id number] Implanted:Qty: 1 on 10/03/2024 by Caleb Garcia MD at [facility] Total Joint Componen t/Insert Right: Knee [employer] [id number] 04/10/2034 42-5600-0 75- [id number] Persona Revision Femoral Distal Augment, Size 9, 9+, 5mm Thickness Implanted:Qty: 1 on 10/03/2024 by Caleb Garcia MD at [facility] Total Joint Componen t/Insert Right: Knee JAMES [id number] 12/28/2030 42-5566-0 66-05 / / [id number] Explanted Type Area Rehabilitation Counselor Device Identifier Shelf Expiration Date Model / Serial / Lot Bone Cement Simplex Full Dose 6191-1-001 - [id number] Implanted:Qty: 3 on 01/17/2024 by Caleb Garcia MD at [facility] Explanted:Qty: 3 on 10/03/2024 by Caleb Garcia MD at [facility] Cement, Bone Right: Knee [employer] [id number] 10/18/2025 6191-1-00 1 / / [id number] Imp Comp Fem Strk Triathln Dist Aug 5mm Rt 6 5540-A-602 - [id number] Implanted:Qty: 1 on 01/17/2024 by Caleb Garcia MD at [facility] Explanted:Qty: 1 on 10/03/2024 by Caleb Garcia MD at [facility] Total Joint Component /Insert Right: Knee [employer] [id number] 03/29/2028 5540-A-60 2 / / [id number] Imp Comp Fem Strk Triathln Dist Aug 5mm Rt 6 5540-A-602 - [id number] Implanted:Qty: 1 on 01/17/2024 by Caleb Garcia MD at [facility] Explanted:Qty: 1 on 10/03/2024 by Caleb Garcia MD at [facility] Total Joint Component /Insert Right: Knee [employer] [id number] 11/02/2027 5540-A-60 2 / / [id number] Imp Comp Fem Strk Triathln Ps Rt 6 5515-F-602 - [id number] Implanted:Qty: 1 on 01/17/2024 by Caleb Garcia MD at [facility] Explanted:Qty: 1 on 10/03/2024 by Caleb Garcia MD at [facility] Total Joint Component /Insert Right: Knee [employer] [id number] 11/16/2028 5515-F-60 2 / / [id number] Triathlon All Poly Tibial Compent - Ps Size #5, 11mm Ps Implanted:Qty: 1 on 01/17/2024 by Caleb Garcia MD at [facility] Explanted:Qty: 1 on 10/03/2024 by Caleb Garcia MD at [facility] Total Joint Component /Insert Right: Knee [employer]EL [id number] 08/13/2028 5535-A-51 [id number] Right Knee 4 Components Explanted:Qty: 1 on 01/17/2024 by Caleb Garcia MD at [facility] Right: Knee Procedures Procedure Name Priority Date/Time Associated Diagnosis Comments GLUCOSE BY METER Routine 10/03/2024 10:[address] ABDOMEN PELVIS W/O CONTRAST Routine 01/20/2024 8:46 AM CDT from Last 3 Months or Most Recently Relevant to Health Maintenance Results * Glucose by meter (10/03/2024 10:29 AM HARD HAT DIVER) [facility] GLUCOSE BY METER POCT 94 70 - 99 mg/dL 10/03/2024 10:36 AM HARD HAT DIVER LABORATORY POC Blood, Capillary BLOOD SPECIMEN / Unknown 10/03/2024 10:29 AM HARD HAT DIVER 10/03/2024 10:36 AM HARD HAT DIVER us Caleb Garcia MD LAB - BEAKER POCT Final Result RH LABORATORY POC [facility] [address] Lab (1st floor, no room number) [place] [address], [facility] * CT Abdomen Pelvis w/o Contrast (01/20/2024 [...] CT ABDOMEN AND PELVIS WITHOUT CONTRAST LOCATION: [facility] DATE: 01/20/2024 INDICATION: Following for hydronephrosis, [...] CT ABDOMEN AND PELVIS WITHOUT CONTRAST LOCATION: [facility] DATE: 01/20/2024 INDICATION: Following for hydronephrosis, [...] abdominal ascites. 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 Source: [facility]. 06/25/2024 Insurance [facility] MEDICARE [facility] [employer] MEDICARE Advance Directives For more information, please contact: [phone] Documents on File Type Date Recorded Patient Traveling Repair Accountant Expl anation Advance Directives and Living Will [...] Discussion with junior nt/ legal decision maker Healthcare Agents on File Name Relationship Healthcare Agent [facility] p Communication Rosibel Zuniga Spouse Health Care Agent Fani Hannah Daughter [facility] C are Agent Care Teams Shopfitter Relationship Specialty Start Date End Date Mary Ruggiero PA-C [address] [place] [address] PCP - General 01/16/24 Tanya Andrews APRN DYE HOUSE HELPER [address] [place], [place] [address] Nurse Practitioner Urology 03/22/24 Deep Pires MD [address] [facility] [address] [place], [place] [address] Assigned Surgical Provider 05/10/24
--- OUTSIDE RECORDS SUMMARY | 2025-06-09 08:22 | XMS_ITS | Clinical Summary ---
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
--- OUTSIDE RECORDS SUMMARY | 2025-06-09 08:22 | XMS_ITS | Clinical Summary ---
Author Organization [facility] Address [address] [place] [address] Care Team Providers Care Egg Gatherer Name Role Phone Emma Webb STEREOTYPER APPRENTICE Unavailable Fani Patel RD Unavailable [phone] Campbell Guerrero RN Unavailable Simran Warner MD Unavailable Shonna Grant LAW FIRM CONSULTANT Unavailable Mary Abbasi Primary Care Provider [phone] Alexandria Segovia MD Unavailable [phone] Allergies Active Allergy Reactions Criticality Noted Date Comments Adhesive Other - Describe In Comment Field Medium 03/31/2025 Fragile skin on forearms, has had skin tears from adhesive tape in the past Metformin Diarrhea High 06/22/2018 Severe diarrhea with XR formulation Medications vitamin e 1,000 unit cap Take 1,000 units by mouth once daily. 022 Active cholecalciferol (Vitamin D) 1,000 unit capsule Take 1 Capsule (1,000 units) by mouth once daily. 0 022 Active Non-Adherent Bandage 4 X 4 spgeIndications:Ur inary retention Apply topically to affected area(s). Apply around drain twice per week and as needed if dressing wet or loose. 100 Each 2 024 Active Adhesive Tape (Medipore H) 3 X 10 -yard tapeIndications:Ur inary retention Apply topically to affected area(s). 3 Each 024 Active acetaminophen (TYLENOL) 325 mg tabletIndications: Chronic pain of right knee Take 2 Tablets (650 mg) by mouth every 6 hours if needed for Pain. Max dose per day is 2000 mg Active pantoprazole (PROTONIX) 40 mg delayed-release tabletIndications: Gastrointestinal hemorrhage, unspecified gastrointestinal hemorrhage type TAKE 1 TABLET(40 MG) BY MOUTH TWICE DAILY 180 Tablet 2 025 Active ketoconazole 2 % creamIndications:T inea versicolor APPLY TO AFFECTED AREA(S) TWO TIMES A DAY 60 g 1 025 Active furosemide (LASIX) 40 mg tabletIndications: Cirrhosis of liver with ascites, unspecified hepatic cirrhosis type (HC) Take 1 Tablet (40 mg) by mouth once daily in the morning. 90 Tablet 3 025 Active spironolactone (ALDACTONE) 50 mg tabletIndications: Cirrhosis of liver with ascites, unspecified hepatic cirrhosis type (HC) Take 2 Tablets (100 mg) by mouth once daily. 180 Tablet 3 025 Active MULTIVITAMIN ORAL Take 1 Tablet by mouth once daily. Active atorvastatin 10 mg tabletIndications: Mixed hyperlipidemia Take 1 Tablet (10 mg) by mouth once daily. 90 Tablet 3 025 Active pregabalin 25 mg capsuleIndications :Neuropathic pain Take 1 Capsule (25 mg) by mouth two times daily. 180 Capsule 1 025 Active lactulose 10 g/15 mL solution Take 20 g by mouth two times daily. 30 mL (20 g) two times daily Active latanoprost 0.005 % ophthalmic solution Place 1 Drop into both eyes at bedtime. Verified home supply 01/28/25 sjt exp: 06/2026 Active tamsulosin 0.4 mg capsuleIndications :BPH with urinary obstruction Take 2 Capsules (0.8 mg) by mouth once daily after a meal. 180 Capsule 3 025 Active amoxicillin 500 mg capsule Take 500 mg by mouth. PRIOR TO DENTAL APPOINTMENTS Active olopatadine 0.1 % ophthalmic solution Place 1 Drop into both eyes once daily if needed (allergy symptoms). Verified home supply 01/28/25 sjt exp: 01/2026 Active aspirin 81 mg enteric coated tabletIndications: Cerebral aneurysm (HC) Take 1 Tablet (81 mg) by mouth once daily. Hold for 1 week following admission then restart taking. 025 Active hyoscyamine sublingual 0.125 mg sublIndications:Bl adder spasms Place 1 Tablet (0.125 mg) under the tongue every 4 hours if needed for Bladder Spasms. 30 Tablet 5 025 Active busPIRone (BUSPAR) 15 mg tabletIndications: Moderate episode of recurrent major depressive disorder (HC) Take 1 Tablet (15 mg) by mouth two times daily. 60 Tablet 2 025 Active glucosamine sulfate (GLUCOSAMINE ORAL) Take by mouth. Active CALCIUM ORAL Take by mouth. Ac tive ferrous sulfate 325 mg delayed release tabletIndications: Microcytic anemia TAKE ONE TABLET BY MOUTH EVERY DAY WITH A MEAL 90 Tablet 3 025 Active DULoxetine (CYMBALTA) 60 mg Delayed-release capsuleIndications :ARABELLA (generalized anxiety disorder) TAKE TWO CAPSULES BY MOUTH EVERY DAY 60 Capsule 025 Active oxyCODONE 10 mg tabletIndications: Status post revision of total replacement of right knee,Controlled substance agreement signed,Chronic pain of right knee,Infection of prosthetic knee joint, subsequent encounter Take 1.5 Tablets (15 mg) by mouth three times daily. 135 Tablet 025 Active QUEtiapine (SEROQUEL) 50 mg tabletIndications: Moderate episode of recurrent major depressive disorder (HC),Chronic insomnia Take 1 Tablet (50 mg) by mouth at bedtime. 30 Tablet 025 Active mirtazapine 30 mg tabletIndications: Depression, unspecified depression type Take 1 Tablet (30 mg) by mouth at bedtime. 90 Tablet 3 025 2024 Discontinued(* Med complete/Regim en complete/Level of care change) ferrous sulfate 325 mg delayed release tabletIndications: Microcytic anemia Take 1 Tablet (325 mg) by mouth once daily with a meal. 60 Tablet 025 2024 Discontinued fluconazole 150 mg tabletIndications: Candidiasis Take 1 dose every 3 days for total of 3 doses 3 Tablet 025 2024 Discontinued(* Med complete/Regim en complete/Level of care change) oxyCODONE 10 mg tabletIndications: Status post revision of total replacement of right knee,Controlled substance agreement signed,Chronic pain of right knee,Infection of prosthetic knee joint, subsequent encounter Take 1.5 Tablets (15 mg) by mouth three times daily. 135 Tablet 025 2024 Discontinued DULoxetine (CYMBALTA) 60 mg Delayed-release capsuleIndications :ARABELLA (generalized anxiety disorder) TAKE TWO CAPSULES BY MOUTH EVERY DAY 60 Capsule 025 2024 Discontinued lactulose 10 gram/15 mL solutionIndication s:Hepatic cirrhosis, unspecified hepatic cirrhosis type, unspecified whether ascites present (HC) Take 30 mL (20 g) by mouth two times daily. 1800 mL 025 2024 levoFLOXacin (LEVAQUIN) 500 mg tabletIndications: urinary tract infection Take 1 Tablet (500 mg) by mouth once daily before evening meal for 7 days. 7 Tablet 025 2024 Active Problems Problem Noted Date Diagnosed Date [...] encounter dx: 11/04/24: Support OP Encounter - [facility] 11/03/24: Support OP Encounter - [facility] 09/17/24: Appointment - [facility] 09/02/24: Appointment - [facility] 08/27/24: Discharged Inpatient - [facility]-MEDSURG/CCU (from [facility]) Recent studies: 11/04/24: Order - US ABDOMEN [...] ... [+] Cirrhosis. 07/31/24: Ultrasound Report - [facility], ABDOMEN COMPLETE, 07/31/2024 by MARY ABBASI ... [+] Decom pensated hepatic cirrhosis Recent notes: 10/22/24: Consults by LAI Grigsby ... [+] Campbell ceja is a 69-year-old male who presents for follow-up regarding cirrhosis of the liver. ... 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 ... [-] Assessment Hepatic cirrhosis, unspecified hepatic cirrhosis type, unspecified whether ascites present (K74.60). ... [+] Impression Campbell is a very pleasant 69-year-old male with cirrhosis sober since 2021. 10/04/24: Consult Notes - Consults by Anai Tineo PA-C (from [place]) ... [+] Campbell Ceja is a 69 year old male with a history of Liver Cirrhosis, Chronic Opioid Dependence, Prostate Cancer, Suprapubic Catheter in place, HTN, HLD, Obesity, Depression who is admitted s/p Removal of antibiotic spacer, right knee Revision right total knee arthroplasty. ... [+] Campbell Ceja is a 69 year old male [...] - Consults by Madelyn Zaman RD (from [place]) ... [+] PMH of: Prostate CA, cirrhosis. [...] [+] He is under the care of [facility] cirrhosis, with a follow-up appointment scheduled for 10/31/2024 or 11/01/2024. ... [+] Campbell was hospitalized with GI bleed 2/2 to esphageal varcies, completed banding, liver cirrhosis. ... [+] He is on xifaxan for liver cirrhosis, as well as lactulose as needed with plan to repeat EGD in the next couple of months. ... [+] He was hospitalized again at [facility] for radiation cystitis and was seen again [...] 11/07/2024 Hematuria 06/04/2024 Postprocedural male urethral stricture Alcoholic cirrhosis of liver with ascites 2023 [...] (external) Recent encounter dx: 07/23/24: HOV - [facility] [place] [facility] 07/19/24: HOV - [facility] [place], [facility] 07/18/24: Appointment - [facility] 06/24/24: Hospital Encounter - [facility] Hyperbaric, HYPERBARIC MEDICINE (from [facility]) 06/12/24: Hospital Encounter - [facility] Medicine 3, MEDICINE (from [facility]) Recent studies: 04/22/24: XR RUG and VCUG by Deep Pires MD (from [place]) ... [+] HISTORY: 66-year-old male with history of prostate cancer status post radiation, recurrence in 2021 status post cryoablation. 12/26/23: mr prostate without and with iv contrast by Janice Salmon APRN, C.N.P., M.S.N. (from [facility]) ... [-] CLINICAL HISTORY: History of prostate cancer, Madeleine score: 7. 06/22/23: mr prostate without and with iv contrast by Grant Pace M.D., Ph.D. (from [facility]) ... [-] CLINICAL HISTORY: History of prostate cancer, Madeleine score: 7, Treatment history: External beam radiation therapy followed by percutaneous cryoablation in the right posterior peripheral zone on 08/25/2022 . 12/20/22: mr prostate without and with iv contrast by Gratn Pace M.D., Ph.D. (from [facility]) ... [-] 1. No residual/recurrent tumor [...] Grant Pace M.D., Ph.D. (from [facility]) ... [-] Under direct US guidance, [employer] cryoneedle guides were placed and cryoneedles were placed into the right posterior prostate cancer. ... [+] These demonstrated good coverage of the right posterior prostate cancer. Recent notes: 10/04/24: Consult Notes - Consults by Anai Tineo PA-C (from [place]) ... [+] Campbell Ceja is a 69 year old male with a history of Liver Cirrhosis, Chronic Opioid Dependence, Prostate Cancer, Suprapubic Catheter in place, HTN, HLD, Obesity, Depression who is admitted s/p Removal of antibiotic spacer, right knee Revision right total knee arthroplasty. ... [+] Campbell Ceja is a 69 year old male [...] Notes by Shonna Grant NP ... [+] Campbell Ceja is a 66 y.o. male with [...] confirmed prostatic adenocarcinoma with therapy associated changes, [place] 4 + 3 involving 5 of 11 cores ... [-] 08/25/22: MRI cryoablation for treatment of his right posterior prostate recurrent cancer. 08/27/24: History & Physical Note - Note by German Mckinney (from [facility]) ... [+] Prostate cancer ... [-] ?C61 - Malignant neoplasm of prostate (ICD-10) 08/27/24: ED Documentation - [facility], WEAKNESS, 08/27/2024 by MARY ABBASI ... [...] Recent encounter dx: 08/27/24: Discharged Inpatient - [facility]-MEDSURG/CCU (from [facility]) 04/23/24: Appointment - [facility] 03/28/24: Appointment - [facility] 03/17/24: Discharge - [facility], [facility], [id number], E4150 / 01 03/11/24: Support OP Encounter - [facility] Recent studies: 03/01/24: ECHO TRANSTHORACIC COMPLETE by Gabby Vogel NP, Rylee Gonsalez, [facility] ... [-] Indication for study: Heart Failure Cardiac Rhythm: Normal sinus.Study quality: Technically limited. Recent notes: 10/04/24: Consult Notes - Consults by Anai Tineo PA-C (from [place]) ... [+] Congestive heart failure (H) Diabetes (H) Gastroesophageal reflux disease with esophagitis History of blood transfusion Hypertension Liver disease Obese 09/02/24: Progress Notes - Nursing Notes by LAI Felix ... [+] ? Acute heart failure with preserved ejection fraction (HC) I50.31 08/28/24: Disch Summary - [facility], FILEMON DM, 08/28/2024 by MARY ABBASI ... [+] known problem, follows with urologist (7) Heart failure with preserved ejection fraction: Chronic 08/27/24: History & Physical Note - Note by eGrman Mckinney (from [facility]) ... [+] Heart failure with preserved ejection fraction ... [-] ?I50.30 - Unspecified diastolic (congestive) heart failure (ICD-10) ... [+] (7) Heart failure with preserved ejection fraction: 08/27/24: H&P - LEWISTONGERMAN MD, 08/27/2024 by MARY ABBASI ... [+] Heart failure with preserved ejection fraction 150.30 ... [+] Unspecified diastolic (congestive) heart failure (ICD-10) Alcohol use disorder F10.90 Hyperammonemia 06/13/2024 01/03/2025 Radiation cystitis 06/07/2024 Acute cystitis with hematuria 06/07/2024 09/27/2024 Urethral stricture 06/06/2024 Melena 06/03/2024 09/27/2024 Acute blood loss anemia [...] Encounters Date Type Department Care Team Description 06/07/2025 Telephone [facility] [address] [place] [address] Amira Vega NP Referral 06/03/2025 Telephone [facility] [address] [place] [address] Amira Vega NP Care Coordination 05/30/2025 11:00 AM CDT Telemedicine [facility] [address] [place] [address] Amira Vega NP Telehealth; Medication Management; Follow Up (Things are fair) 05/29/2025 Refill [facility] [address] [place] [address] Mary Abbasi PA Refill Request (Oxycodone) 05/26/2025 Orders Only [facility] Scanner 1 scan: (1-Ord) INCOMING RECORDS-ENDOSCOPY, [facility] , 05/26/2025 05/26/2025 Orders Only [facility] Scanner 1 scan: (1-Ord) INCOMING RECORDS-LABS, [facility], 05/26/2025 05/23/2025 10:35 AM CDT - 05/23/2025 11:59 PM CDT Hospital Encounter [address] [address] Serge Daniels, DO Lin Turner, PT Chronic knee pain after total replacement of right knee joint 05/23/2025 Travel 05/22/2025 8:45 AM CDT Telemedicine [facility] [address] [place] [address] Alexandria Maloney LICSW Individual Therapy 05/21/2025 2:15 PM CDT Office Visit [facility] [address] [place] [address] Shonna Grant NP Follow Up (Anemia, unspecified type) 05/21/2025 Travel 05/14/2025 E-Visit [facility] [address] [place] [address] Mary Abbasi PA UTI 05/13/2025 Refill [facility] [address] [place] [address] Amira Vega NP Refill Request (Duloxetine) 05/13/2025 Refill [facility] [address] [place] [address] Mary Abbasi PA Refill Request (Ferrous Sulfate) 05/13/[address] [address] [place], [facility] Cancer Appointment 05/12/2025 1:30 PM CDT Telemedicine [facility] [address] [place] [address] Reshma Gonsalez ENVIRONMENTAL COMPLIANCE TECHNICIAN [facility] Visit; Telehealth 05/12/2025 Travel 05/09/2025 8:15 AM CDT - 05/09/2025 11:59 PM CDT Hospital Encounter [facility] [address] [place] [address] Prostate cancer (HC) [C61]; Prostate cancer (HC) 05/08/2025 11:05 AM CDT Ancillary Procedure [facility] [address] [place] [address] 05/08/2025 11:00 AM CDT Ancillary Procedure [facility] [address] [place] [address] 05/08/2025 10:30 AM CDT Office Visit [facility] [address] [facility] [address] [place] [address] Serge Daniels DO Knee Pain/problem (Right knee) 05/08/2025 Orders Only [facility] Scanner 1 scan: (1-Ord) INCOMING RECORDS-MRI, [facility], 05/08/2025 05/08/2025 Travel 05/07/2025 Telephone [facility] [address] [place] [address] [facility] 05/07/2025 Telephone [facility] [address] [place] [address] Shonna Grant, LAW FIRM CONSULTANT Lab 05/05/2025 7:08 AM CDT - 05/05/2025 11:59 PM CDT Hospital Encounter [facility] [address] [place] [address] Mary Abbasi PA Abnormal MRI, lumbar spine; Lesion of lumbar spine 05/05/2025 Travel 04/28/2025 2:50 PM CDT Office Visit [facility] [address] [place] [address] Mary Abbasi PA Derm Problem (Pt [place] and it bled for over an hour-accidentally taped a bandage to it and then couldn't get it off-also with a blood blister below that and whole forearm is bruised-it was very hot but he is not sure if he was sunburned) 04/28/2025 Travel 04/21/2025 8:55 AM CDT - 04/21/2025 9:40 AM CDT Surgery [facility] [address] [place] [address] Alyson Varma MD Upper Endoscopy with varices 04/21/2025 8:31 AM CDT Anesthesia Event [facility] [address] [place], [place] [id number] Nevin Seo MD Roberts, Cody Gray, MD 04/21/2025 7:05 AM CDT - 04/21/2025 9:59 AM CDT Hospital Encounter [facility] [address] [place] [address] Alyson Varma MD Chronic liver disease (Primary Dx) Discharge Disposition: Home Self Care 04/21/2025 Refill [facility] [address] [place] [address] Amria Vega NP Refill Request (Duloxetine) 04/21/2025 Travel 04/18/2025 10:30 AM CDT Telemedicine [facility] [address] [place] [address] Amira Vega NP Telehealth; Follow Up; Medication Management 04/18/2025 Refill [facility] [address] [place] [address] Mary Abbasi PA Refill Request 04/18/2025 Travel 04/15/2025 Telephone [facility] [address] [place] [address] Mary Abbasi PA Concerns (Health) 04/11/2025 12:15 PM CDT Telemedicine [facility] [address] [place] [address] Alexandria Maloney LICSW Individual Therapy 04/11/2025 Travel 04/10/2025 Orders Only [facility] [address] [place] [address] Mary Abbasi PA <No scans attached> 04/10/2025 Telephone [facility] [address] [place] [address] Mary Abbasi PA Follow Up 04/08/2025 12:55 PM CDT Office Visit [facility] [address] [place] [address] Nilsa Serna PA Infection 04/08/2025 Orders Only [facility] Scanner 1 scan: (1-Ord) [facility], 04/08/2025 04/08/2025 Orders Only [facility] [address] [place] [address] Yumiko Molina PA <No scans attached> 04/07/2025 8:10 AM CDT Office Visit [facility] [address] [place] [address] Mary Abbasi PA Preoperative Exam ([id number]-8/4/25 -Dr. Varma); Serious Illness Conversation 04/07/2025 Telephone [facility] [address] [place] [phone] Shonna Grant NP Appointment 04/07/2025 Travel 04/03/2025 1:30 PM CDT Telemedicine [address] [address] Reshma Gonsalez, [facility] Visit; Telehealth 04/03/2025 Travel 04/02/2025 7:02 AM CDT - 04/02/2025 11:59 PM CDT Hospital Encounter [facility] [address] [place] [address] Praveen Pedersen PA Nonspecific low back pain 04/01/2025 11:00 AM CDT Nurse/Clinic Staff Only [address] [address] Infusion Therapy (2nd feraheme) 04/01/[address] [address] Amira Vega NP Refill Request (Buspirone HCL 5mg tabs) 04/01/2025 Travel 03/31/2025 Refill [facility] [address] [place] [address] Mary Abbasi PA Refill Request (PANTOPRAZOLE 40MG, BUSPIRONE HCL 5MG TABS) 03/30/2025 Refill [facility] [address] [place] [address] Jennifer Hester NP Refill Request (Buspirone) 03/27/2025 1:30 PM CDT Office Visit [facility] [address] [place] [address] Alexandria Segovia MD Consult (UTI associated with indwelling urethral catheter) 03/27/2025 Travel 03/25/2025 10:00 AM CDT Nurse/Clinic Staff Only [facility] [address] [place] [address] Infusion Therapy (1st Feraheme) 03/25/2025 Travel 03/19/2025 9:00 AM CDT Office Visit [facility] [address] [place] [address] Reshma Gonsalez, [facility] Visit 03/19/2025 Travel 03/17/2025 Telephone [facility] [address] [place] [address] Shonna Grant NP Appointment 03/13/2025 9:30 AM CDT Telemedicine [facility] [address] [place] [address] Amira Vega NP Telehealth; Medication Management 03/13/2025 Telephone [facility] [address] [place] [address] Amira Vega NP Appointment (appt scheduling) 03/12/2025 Travel from Last 3 Months Immunizations Immunization Administration Dates Next Due Tdap 10/03/2023,05/13/2013 Family History Medical History Relation Name Comments Cancer-prostate Brother Alcoholism Father cirrhosis Heart Disease Father Osteoporosis Mother Relation Name Status Comments Brother Father Mother Social History Tobacco Use Types Packs/Day Years Used Date Smoking Tobacco: Former Cigarettes Cigars Smokeless Tobacco: Never Tobacco Cessation:Counseling Given: Not Answered Comments:Quit approx 2006 Passive Exposure Comments:quit 18 years ago Alcohol Use Standard Drinks/Week Comments Not Currently 0 (1 standard drink = 0.6 oz pure alcohol) 03/02/24 Fomer alcoholic. Last drink 08/12/22. 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 Gender Identity Not on file Sexual Orientation Not on file Obstetrics History Last Filed Vital Signs Vital Sign Reading Time Taken Comments Blood Pressure 123/59 05/21/2025 2:04 PM CDT Pulse 78 05/21/2025 2:04 PM CDT Temperature 36.4 C (97.5 F) 05/21/2025 2:04 PM CDT Respiratory Rate 17 05/21/2025 2:04 PM CDT Oxygen Saturation 97% 05/21/2025 2:04 PM CDT Inhaled Oxygen Concentration - - Weight 128.7 kg (283 lb 11.2 oz) 05/21/2025 2:04 PM CDT Height 177.8 cm (5' 10) 04/21/2025 7:56 AM CDT Body Mass Index 40.71 04/21/2025 7:56 AM CDT Plan of Treatment Upcoming Encounters Date Type Department Care Team (Late st Contact Info) Description 06/10/2025 1:00 PM CDT Appointment [address] [address] Janice Akers V, [employer] [address] [place] [address] 06/12/2025 8:45 AM CDT Telemedicine [facility] [address] [place] [address] Alexandria Maloney, [facility] [address] [place] [address] 06/17/2025 10:15 AM CDT Appointment [address] [address] Lin Turner, PT [address] [place] [address] 06/24/2025 10:15 AM CDT Appointment [address] [address] Janice Akers V, [facility] [address] [place] [address] 07/01/2025 8:45 AM CDT Telemedicine [facility] [address] [place] [address] Alexandria Maloney, 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 [address] Alexandria Segovia MD [address] [place] [address] 11/13/2025 2:00 PM B[employer] M[employer] AND CARRIAGE OPERATOR Appointment [facility] [address] [place] [address] 11/18/2025 2:00 PM BAND [employer] M[employer] CARRIAGE OPERATOR Office Visit [facility] [place] [facility] [address] [facility] [place] [address] Simran Warner MD [address] [place] [address] Health Maintenance Due Date Last Done Comments Pneumococcal series for age 50+ (1 of 2 - PCV) 1976 Zoster (shingles) series for age 50+ (1 of 2) 1976 RSV vaccine for adults or (1 - Risk 60-74 years 1-dose series) 2017 COVID-19 vaccine series (2 - Pfizer risk series) 12/30/2020 12/09/2020 Medicare Wellness for age 65+ 03/03/2024 03/03/2023 Influenza Vaccine (#1) 2025 BMI (ht and wt on same day) for age 18+ 04/07/2026 04/07/2025, 03/04/2025, 01/02/2025, Additional history exists Depression screening for age 12+ 05/30/2026 05/30/2025, 04/18/2025, 02/12/2025, Additional history exists Colonoscopy through age 77 03/28/202703/28, 06/05/2018, 03/17/2008 [facility] Lipids for age 45-75 03/04/2030 03/04/2025, 03/01/2024, 02/27/2023, Additional history exists Tetanus booster 10/03/2033 10/03/2023, 05/13/2013 Hepatitis C screening for age 18-79 Completed 09/23/2016 AAA screening age 65-74 Completed 11/22/19, 07/31/2024, 01/07/2019, Additional history exists Hepatitis B series for 19+ Aged Out N o longer eligible based on patient's age to complete this topic Medical Devices Implanted Type Area Radio Station Audio Engineer Device Identifier Shelf Expiration Date Model / Serial / Lot Mesh Ventral [address]in [address]ral[address] W/Echo Ps Cir - [id number] Implanted:Qty: 1 on 08/06/2018 by Chavez Trujillo DO at [facility] N/A: Abdomen [employer] 04/14/2020 [id number] / / [id number] Triathlon Posterior Stabilized Femoral #6 Rt Ps Implanted:Qty: 1 on 09/08/2020 by Jose Armando Vega MD at [facility] Right: Knee [employer] 07/09/2024 [id number] / / [id number] Triathlon Tritanium Symmetric Patella S36mm 10mm Implanted:Qty: 1 on 09/08/2020 by Jose Armando Vega MD at [facility] Right: Knee [employer] 02/05/2024 [id number]-360 / / [id number] Triathlon Tritanium Tibial Component #5 Implanted:Qty: 1 on 09/08/2020 by Jose Armando Vega MD at [facility] Right: Knee [employer] 04/04/2025 5536-B-500 / / [id number] Triathlon X3 Tibial Bearing Insert Ps 5 9mm Implanted:Qty: 1 on 09/08/2020 by Jose Armando Vega MD at [facility] Right: Knee [employer] 12/04/2023 5532-G-509 / / [id number] - [id number], Triathlon X3 Tibial Bearing Insert-Ps Implanted:Qty: 1 on 12/16/2020 by David Story MD at [facility] Right: Knee [employer] 09/25/2024 [id number]-G-[id number] -[id number] / / [id number] Procedures Procedure Name Priority Date/Time Associated Diagnosis Comments SCAN CORRESP-LABORATORY RESULTS 05/26/2025 12:00 AM CDT SCAN CORRESP-DIAGNOSTIC S 05/26/2025 12:00 AM CDT CBC WITH AUTO DIFFERENTIAL Timed 05/09/2025 8:26 AM CDT Prostate cancer (HC) [C61] RETICULOCYTES Today 05/09/2025 8:26 AM CDT Prostate cancer (HC) COMP METABOLIC PANEL Today 05/09/2025 8:26 AM CDT Prostate cancer (HC) [C61] IRON PLUS IRON BINDING CAP Today 05/09/2025 8:26 AM CDT Prostate cancer (HC) [C61] FERRITIN Today 05/09/2025 8:26 AM CDT Prostate cancer (HC) [C61] CBC WITH AUTO DIFFERENTIAL Today 05/09/2025 8:26 AM CDT Prostate cancer (HC) [C61] XR LEG LENGTH Routine 05/08/2025 11:16 AM CDT Chronic knee pain after total replacement of right knee joint XR KNEE WB 3 VIEWS BILATERAL AND 1 VIEW RIGHT Routine 05/08/2025 11:16 AM CDT Chronic knee pain after total replacement of right knee joint SCAN CORRESP-IMAGING 05/08/2025 12:00 AM CDT MR SPINE LUMBAR WWO CATALINA 05/05/2025 8:00 AM CDT Abnormal MRI, lumbar spine Lesion of lumbar spine ENDOSCOPY Tier 4: > 90 days 04/21/2025 8:24 AM CDT recheck on varices Case Notes ENDO TEAM- will bring supplies and equipmentPatient recently had brain surgeryPatient has implant ENDOSCOPY 04/21/2025 8:14 AM CDT SCAN-ULTRASOUND REPORT 04/08/2025 12:00 AM CDT AEROBIC BACTERIAL CULTURE, STAIN Routine 04/07/2025 9:07 [...] exam MR SPINE LUMBAR WO Routine 04/02/2025 7:39 AM CDT Nonspecific low back pain PSA TOTAL Routine 03/27/2025 2:01 PM CDT Prostate cancer (HC) LIPID PANEL W REFLEX MEASURED LDL Routine 03/04/2025 11:26 AM CDT Mixed hyperlipidemia CT ABDOMEN PELVIS W STAT 11/21/2024 11:31 AM [employer] Cirrhosis of liver with ascites, unspecified hepatic cirrhosis type (HC) COLONOSCOPY 03/28/2022 7:27 AM CDT ANTI HCV Routine 09/23/2016 8:24 AM [employer]ATOR Need for hepatitis C screening test from Last 3 Months or Most Recently Relevant to Health Maintenance Results * SCAN CORRESP-LABORATORY RESULTS (05/26/2025 12:00 AM CDT) us Scanner OTHER Final Result * SCAN CORRESP-DIAGNOSTICS (05/26/2025 12:00 AM CDT) us Scanner OTHER Final Result * (ABNORMAL) CBC WITH AUTO DIFFERENTIAL (05/09/2025 8:26 AM T) WHITE BLOOD COUNT 6.5 4.5 - 11.0 thou/cu mm 05/09/2025 8:30 AM [facility] RED BLOOD COUNT 4.58 4.30 - 5.90 mil/cu mm 05/09/2025 8:30 AM [facility] HEMOGLOBIN 14.1 13.5 - 17.5 g/dL 05/09/2025 8:30 AM [facility] HEMATOCRIT 42.0 37.0 - 53.0 % 05/09/2025 8:30 AM [facility] MCV 92 80 - 100 fL 05/09/2025 8:30 AM [facility] MCH 30.8 26.0 - 34.0 pg 05/09/2025 8:30 AM [facility] MCHC 33.6 32.0 - 36.0 g/dL 05/09/2025 8:30 AM [facility] RDW 18.8(H) 11.5 - 15.5 % 05/09/2025 8:30 AM [facility] PLATELET COUNT 112(L) 140 - 440 thou/cu mm 05/09/2025 8:30 AM [facility] MPV 9.5 6.5 - 11.0 fL 05/09/2025 8:30 AM [facility] % NEUT 72.4 % 05/09/2025 8:30 AM [facility] % LYMPH 12.1 % 05/09/2025 8:30 AM [facility] % MONO 11.6 % 05/09/2025 8:30 AM [facility] % EOS 2.8 % 05/09/2025 8:30 AM [facility] % BASO 1.1 % 05/09/2025 8:30 AM [facility] ABSOLUTE NEUTROPHILS 4.7 1.7 - 7.0 thou/cu mm 05/09/2025 8:30 AM CDT [facility] ABSOLUTE LYMPHOCYTES 0.8(L) 0.9 - 2.9 thou/cu mm 05/09/2025 8:30 AM CDT [facility] ABSOLUTE MONOCYTES 0.8 <0.9 thou/cu mm 05/09/2025 8:30 AM CDT [facility] ABSOLUTE EOSINOPHILS 0.2 <0.5 thou/cu mm 05/09/2025 8:30 AM CDT [facility] ABSOLUTE BASOPHILS 0.1 <0.3 thou/cu mm 05/09/2025 8:30 AM CDT [facility] Blood BLOOD SPECIMEN / Unknown Venipuncture / Unknown 05/09/2025 8:26 AM CDT 05/09/2025 8:26 AM CDT Simran Warner MD HEMATOLOGY Final Resu lt [facility] [address] [place] [address] * (ABNORMAL) IRON PLUS IRON BINDING CAP (05/09/2025 8:26 AM CDT) Only the most recent of2 resultswithin the time period is included. IRON 54(L) 61 - 157 ug/dL 05/09/2025 12:55 PM CDT [facility] UIBC (UNSATURATED) 208 112 - 347 ug/dL 05/09/2025 12:55 PM CDT [facility] IRON BINDING CAPACITY 262 250 - 400 ug/dL 05/09/2025 12:55 PM CDT [facility] IRON,% SATURATION 21 14 - 50 % 05/09/2025 12:55 PM CDT [facility] Blood BLOOD SPECIMEN / Unknown Venipuncture / Unknown 05/09/2025 8:26 AM CDT 05/09/2025 8:26 AM CDT Simran Warner MD CHEMISTRY Final Resu lt Performing Organization Address [facility] Co de Phone Number [facility] [address] [place] [address], [place] * (ABNORMAL) RETICULOCYTES (05/09/2025 8:26 AM CDT) RETIC% 1.8(H) 0.5 - 1.5 % 05/09/2025 12:41 PM CDT [facility] RETIC (ABSOLUTE) 0.08 0.03 - 0.08 mil/cu mm 05/09/2025 12:41 PM CDT [facility] Blood BLOOD SPECIMEN / Unknown Venipuncture / Unknown 05/09/2025 8:26 AM CDT 05/09/2025 8:26 AM CDT Shonna Grant NP HEMATOLOGY Final Result Performing Organization Address [facility] Co de Phone Number [facility] [address] [place] [address], [place] * FERRITIN (05/09/2025 8:26 AM CDT) Only the most recent of2 resultswithin the time period is included. FERRITIN 91.1 30.0 - 400.0 ng/mL 05/09/2025 12:55 PM CDT [facility] Blood BLOOD SPECIMEN / Unknown Venipuncture / Unknown 05/09/2025 8:26 AM CDT 05/09/2025 8:26 AM CDT Simran Warner MD CHEMISTRY Final Resu lt Performing Organization Address [facility] Co de Phone Number [facility] [address] [place] [address], [place] * (ABNORMAL) COMP METABOLIC PANEL (05/09/2025 8:26 AM CDT) Only the most recent of2 resultswithin the time period is included. SODIUM 139 136 - 145 mmol/L 05/09/2025 8:46 AM [facility] POTASSIUM 4.4 3.5 - 5.1 mmol/L 05/09/2025 8:46 AM [facility] CHLORIDE 107 98 - 107 mmol/L 05/09/2025 8:46 AM [facility] CO2,TOTAL 22 22 - 29 mmol/L 05/09/2025 8:46 AM [facility] ANION GAP 10 5 - 18 05/09/2025 8:46 AM [facility] GLUCOSE 112(H) 70 - 99 mg/dL 05/09/2025 8:46 AM [facility] CALCIUM 9.3 8.8 - 10.4 mg/dL 05/09/2025 8:46 AM [facility] Comment: Reference ranges for this test were updated on 07/23/2024 to reflect our healthy population more accurately. Reference range changes are not retroactively applied to results, but previous results using the same methodology can be interpreted in the context of the new reference range. BUN 15 8 - 23 mg/dL 05/09/2025 8:46 AM [facility] CREATININE 0.82 0.70 - 1.20 mg/dL 05/09/2025 8:46 AM [facility] BUN/CREAT RATIO 18 10 - 20 8:46 AM [facility] eGFR >90 >90 mL/min/1. 73m2 05/09/2025 8:46 AM [facility] Comment:As of 2021, eG FR is calculated by the CKD-EPI creatinine equation without race adjustment. eGFR can be influenced by muscle mass, exercise, and diet. The reported eGFR is an estimation only and is only applicable if the renal function is stable. ALBUMIN 3.7(L) 4.0 - 4.9 g/dL 05/09/2025 8:46 AM [facility] PROTEIN,TOTAL 6.9 6.0 - 8.0 g/dL 05/09/2025 8:46 AM [facility] BILIRUBIN,TOTAL 0.8 0.0 - 1.2 mg/dL 05/09/2025 8:46 AM CDT [facility] ALK PHOSPHATASE 85 40 - 129 IU/L 05/09/2025 8:46 AM CDT [facility] ALT (SGPT) 24 10 - 50 IU/L 05/09/2025 8:46 AM CDT [facility] AST (SGOT) 30 10 - 50 IU/L 05/09/2025 8:46 AM CDT [facility] Blood BLOOD SPECIMEN / Unknown Venipuncture / Unknown 05/09/2025 8:26 AM CDT 05/09/2025 8:26 AM CDT us Simran Warner MD CHEMISTRY Final Resu lt [facility] [address] [place] [address] * XR LEG LENGTH (05/08/2025 11:16 AM CDT) Anatomical Region Laterality Modality LEGS, FEMURS Digital Radiogra phy 05/11/2025 5:52 AM CDT Impressions 05/11/2025 5:52 AM CDT 1. Leg lengths, as above. 2. Right TKR without obvious complication. 3. Left knee osteoarthritis with lateral tibial translation and genu varum. 4. At least mild osteoarthritis at the hips. Dictated by Jose Armando Haley MD @ 05/11/2025 5:52:50 AM (Electronically Signed) Narrative 05/11/2025 5:52 AM CDT For Patients: As a result of the Century Cures Act, medical imaging exams and procedure reports are released immediately into your electronic medical record. You may view this report before your referring provider. If you have questions, please contact your health care provider. INDICATION: Chronic right knee pain post TKR TECHNIQUE: Full length weightbearing AP image both legs COMPARISON: Today`s knee x-rays FINDINGS: Both legs measured at 98.2 cm. Right TKR without obvious complication advanced medial compartment osteoarthrosis of the left lateral tibial translation and genu. At least mild osteoarthrosis both hips ankles negative. Procedure Note Jose Armando Haley MD - 05/11/2025 For Patients: As a result of the Cures Act, medical imagingexams and procedure reports are released immediately into your electronicmedical record. You may view this report before your referring provider.If you have questions, please contact your health care provider. INDICATION: Chronic right knee pain post TKR TECHNIQUE: Full length weightbearing AP image both legs COMPARISON: Today`s knee x-rays FINDINGS: Both legs measured at 98.2 cm. Right TKR without obvious complicationadvanced medial compartment osteoarthrosis of the left lateral tibialtranslation and genu. At least mild osteoarthrosis both hips anklesnegative. IMPRESSION: 1. Leg lengths, as above. 2. Right TKR without obvious complication. 3. Left knee osteoarthritis with lateral tibial translation and genuvarum. 4. At least mild osteoarthritis at the hips. Dictated by Jose Armando Haley MD @ 05/11/2025 5:52:50 AM (Electronically Signed) Serge Daniels DO GENERAL IMAGING Final Resu lt * XR KNEE WB 3 VIEWS BILATERAL AND 1 VIEW RIGHT (05/08/2025 11:16 AM CDT) Anatomical Region Laterality Modality KNEES, KNEE R Digital Radiogra phy 05/11/2025 5:49 AM CDT Narrative 05/11/2025 5:49 AM CDT For Patients: As a result of the Cures Act, medical imaging exams and procedure reports are released immediately into your electronic medical record. You may view this report before your referring provider. If you have questions, please contact your health care provider. INDICATION: Chronic right knee pain post TKR TECHNIQUE : Weightbearing AP and Lundberg of both knees as well as a weight-bearing lateral projection of the right knee and a sunrise view of both knees COMPARISON : 01/06/2024 FINDINGS: Right knee: Interval TKR revision. Prosthetic components well-seated and aligned. No joint effusion. Left knee: Advanced medial compartment osteoarthritis. No chondrocalcinosis. Mild lateral translation of the tibia and genu varum. IMPRESSION : 1. Interval right TKR revision without obvious complication. 2. Mild medial compartment osteoarthritis at the left knee along with mild lateral tibial translation and genu varum. Dictated by Jose Armando Haley MD @ 05/11/2025 5:49:14 AM (Electronically Signed) Procedure Note Jsoe Armando Haley MD - 05/11/2025 For Patients: As a result of the Cures Act, medical imagingexams and procedure reports are released immediately into your electronicmedical record. You may view this report before your referring provider.If you have questions, please contact your health care provider. INDICATION: Chronic right knee pain post TKR TECHNIQUE : Weightbearing AP and Lundberg of both knees as well as a weight-bearinglateral projection of the right knee and a sunrise view of both knees COMPARISON : 01/06/2024 FINDINGS: Right knee: Interval TKR revision. Prosthetic components well-seated andaligned. No joint effusion. Left knee: Advanced medial compartment osteoarthritis. Nochondrocalcinosis. Mild lateral translation of the tibia and genu varum. IMPRESSION : 1. Interval right TKR revision without obvious complication. 2. Mild medial compartment osteoarthritis at the left knee along with mildlateral tibial translation and genu varum. Dictated by Jose Armando Haley MD @ 05/11/2025 5:49:14 AM (Electronically Signed) Serge Daniels DO GENERAL IMAGING Final Resu lt * SCAN CORRESP-IMAGING (05/08/2025 12:00 AM CDT) Anatomical Region Laterality Modality Other us Scanner OTHER Final Result * MR SPINE LUMBAR WWO (05/05/2025 8:00 AM CDT) Anatomical Region Laterality Modality Spine, LUMBAR SPINE Magnetic Res onance 05/05/2025 8:39 AM CDT Narrative 05/05/2025 8:39 AM CDT For Patients: As a result of the Cures Act, medical imaging exams and procedure reports are released immediately into your electronic medical record. You may view this report before your referring provider. If you have questions, please contact your health care provider. Indication: Abnormal lumbar spine. Pain. History of prostate cancer. Technique: Multiplanar, multisequence MRI of the lumbar spine was performed without and with intravenous contrast. Contrast: 25 cc Dotarem. Comparison: MRI lumbar spine 04/02/2025. CT abdomen/pelvis 12/21/2024. Findings: There are 5 lumbar-type vertebral segments are identified. No fracture. Mild dextroconvex curvature. Increased intrinsic T1 hyperintensity involving the L4, L5 vertebral levels and sacrum. T1 hypointense marrow within the remaining lumbar levels, without discrete enhancing focus favored to be reactive. Stable sacral insufficiency fractures. There is extension across the S3 vertebral body. The conus medullaris terminates at T12-L1, normal. Cauda equina appears unremarkable. T12-L1: No spinal canal or neural foraminal stenosis. L1-2: No spinal canal or neural foraminal stenosis. L2-3: No spinal canal or neural foraminal stenosis. L3-4: No spinal canal or neural foraminal stenosis. L4-5: Trace anterolisthesis. Disc degeneration combined with facet arthropathy results in mild spinal canal narrowing. Mild neural foraminal narrowing. Moderate to severe facet arthropathy. L5-S1: Disc degeneration. Disc bulge combined with facet arthropathy results in mild spinal canal narrowing. Moderate right neural foraminal narrowing. Left neural foramen is patent. Moderate sacroiliac joint osteoarthritis. Left renal cyst. Impression: 1. Increased intrinsic T1 hyperintense fatty marrow of the lower lumbar spine/sacrum may represent radiation treatment effects related to patient`s history of prostate cancer. 2. T1 hypointense marrow within the remaining lumbar levels, without discrete enhancing focus favored to be reactive. 3. Redemonstration of sacral insufficiency fractures, extending across the S3 vertebral level. 4. At L5-S1, moderate right neural foraminal narrowing. Dictated by Marcelo Mcdonald MD @ 05/05/2025 8:39:59 AM (Electronically Signed) Procedure Note Marcelo Mcdonald, - 05/05/2025 For Patients: As a result of the Century Cures Act, medical imagingexams and procedure reports are released immediately into your electronicmedical record. You may view this report before your referring provider.If you have questions, please contact your health care provider. Indication: Abnormal lumbar spine. Pain. History of prostate cancer. Technique: Multiplanar, multisequence MRI of the lumbar spine was performed withoutand with intravenous contrast. Contrast: 25 cc Dotarem. Comparison: MRI lumbar spine 04/02/2025. CT abdomen/pelvis 12/21/2024. Findings: There are 5 lumbar-type vertebral segments are identified. No fracture.Mild dextroconvex curvature. Increased intrinsic T1 hyperintensity involving the L4, L5 vertebrallevels and sacrum. T1 hypointense marrow within the remaining lumbarlevels, without discrete enhancing focus favored to be reactive. Stable sacral insufficiency fractures. There is extension across the [id number] body. The conus medullaris terminates at T12-L1, normal. Cauda equina appearsunremarkable. T12-L1: No spinal canal or neural foraminal stenosis. L1-2: No spinal canal or neural foraminal stenosis. L2-3: No spinal canal or neural foraminal stenosis. L3-4: No spinal canal or neural foraminal stenosis. L4-5: Trace anterolisthesis. Disc degeneration combined with facetarthropathy results in mild spinal canal narrowing. Mild neural foraminalnarrowing. Moderate to severe facet arthropathy. L5-S1: Disc degeneration. Disc bulge combined with facet arthropathyresults in mild spinal canal narrowing. Moderate right neural foraminalnarrowing. Left neural foramen is patent. Moderate sacroiliac joint osteoarthritis. Left renal cyst. Impression: 1. Increased intrinsic T1 hyperintense fatty marrow of the lower lumbarspine/sacrum may represent radiation treatment effects related topatient`s history of prostate cancer. 2. T1 hypointense marrow within the remaining lumbar levels, withoutdiscrete enhancing focus favored to be reactive. 3. Redemonstration of sacral insufficiency fractures, extending across theS3 vertebral level. 4. At L5-S1, moderate right neural foraminal narrowing. Dictated by Marcelo Mcdonald MD @ 05/05/2025 8:39:59 AM (Electronically Signed) us Mary HOYT MR Final Resu lt * ENDOSCOPY (04/21/2025 8:14 AM CDT) 04/21/2025 8:14 AM CDT Narrative Transcriptions Alyson Varma MD - 04/21/2025 8:53 AM CDT [facility] Patient Name: Campbell Ceja Procedure Date: 04/21/2025 Gender: Male Date of : 1955 Admit Type: Ambulatory Procedure: Upper GI endoscopy Proceduralist: Alyson Varam MD - [facility] Indications/Pre-Op Diagnosis: Follow-up of esophageal varices Medications: Monitored Anesthesia Care Procedure Description: Risk of bleeding, infection, perforation, need for surgery and alternatives discussed. The endoscope [id number] was introduced through the mouth, and advanced to the second part of duodenum. The upper GI endoscopy was accomplished without difficulty. The patient tolerated the procedure well. Complications: No immediate complications. Estimated Blood Loss & Specimen: Estimated blood loss: none. Specimen collected: None Findings: Grade I, small (< 5 mm) varices were found in the lower third of the esophagus. They were small in size. Mild portal hypertensive gastropathy was found in the gastricfundus. The examined duodenum was normal. Impressions/Post-Op Diagnosis: - Grade I and small (< 5 mm) esophageal varices. - Portal hypertensive gastropathy. - Normal examined duodenum. Recommendation: - Repeat upper endoscopy in 6 months for surveillance. Alyson Varma MD 04/21/2025 8:53:23 AM This report has been signed electronically. Note Initiated On: 04/21/2025 8:14 AM us Alyson Varma MD PROCEDURE ORD Final Result * SCAN-ULTRASOUND REPORT (04/08/2025 12:00 AM CDT) Anatomical Region Laterality Modality Other us Scanner OTHER Final Result * (ABNORMAL) AEROBIC BACTERIAL CULTURE, STAIN (04/07/2025 9:07 AM CDT) CULTURE RESULT(A) 04/10/2025 10:18 AM CDT [facility] ENTRAL LABORATORY CULTURE 2+ Klebsiella oxytoca 04/10/2025 10:18 AM CDT [facility] CULTURE 2+ Citrobacter freundii 04/10/2025 10:18 AM CDT [facility] Comment: Oral cephalosporins are not recommended. May develop resistance during therapy with penicillins and [id number] cephalosporins as a result of loss of repression of AmpC -lactamase. Therefore, isolates that are initially susceptible may become resistant within 3 to 4 days after initiation of therapy. CULTURE 1+ Staphylococcus aureus 04/10/2025 10:18 AM CDT [facility] CULTURE 1+ Enterococcus faecalis 04/10/2025 10:18 AM CDT [facility] CULTURE 1+ Mixed lily present 04/10/2025 10:18 AM CDT [facility] GRAM STAIN 2+ PMNs 04/10/2025 10:18 AM CDT [facility] GRAM STAIN No RBCs 04/10/2025 10:18 AM CDT [facility] GRAM STAIN 1+ Epithelial cells 04/10/2025 10:18 AM CDT [facility] GRAM STAIN 1+ Gram Positive Cocci 04/10/2025 10:18 AM [facility]T [facility] GRAM STAIN 1+ Gram Negative Bacilli 04/10/2025 10:18 AM CDT [facility] ENTRAL LABORATORY GRAM STAIN 1+ Gram Positive Bacilli 04/10/2025 10:18 AM CDT [facility] ENTRAL LABORATORY Other (Other) Non-Blood / Unknown 04/07/2025 9:07 AM CDT 04/07/2025 9:07 AM [facility]T [facility] 04/10/2025 10:18 AM CDT Mixed Lily; No beta-Strep, Strep. pneumoniae, or Pseudomonas aeruginosa Organism Antibiotic Method Susceptibility Klebsiella oxytoca TRIMETHOPRIM/SULF <=10/06: S Klebsiella oxytoca AMPICILLIN >=32: R Klebsiella oxytoca CEFAZOLIN 8: R Klebsiella oxytoca GENTAMICIN <=1: S Klebsiella oxytoca CEFTRIAXONE <=0.25: S Klebsiella oxytoca CEFTAZIDIME <=0.5: S Klebsiella oxytoca LEVOFLOXACIN 0.25: S Klebsiella oxytoca CIPROFLOXACIN 0.12: S Klebsiella oxytoca PIPERACILLIN/TAZO 16: Susceptible-dose dependent. Susceptibility dependent on max. possible blood level. Klebsiella oxytoca AMPICILLIN/SULBACTAM 16: I Klebsiella oxytoca CEFEPIME <=0.12: S Klebsiella oxytoca MEROPENEM <=0.25: S Citrobacter freundii TRIMETHOPRIM/SULF <=1/19: S Citrobacter freundii CEFAZOLIN >=32: R Citrobacter freundii GENTAMICIN <=1: S Citrobacter freundii CEFTRIAXONE >=64: R Citrobacter freundii CEFTAZIDIME >=32: R Citrobacter freundii LEVOFLOXACIN <=0.12: S Citrobacter freundii CIPROFLOXACIN <=0.06: S Citrobacter freundii PIPERACILLIN/TAZO 32: R Citrobacter freundii CEFEPIME 0.5: S Citrobacter freundii MEROPENEM <=0.25: S Staphylococcus aureus OXACILLIN 0.5: S Comment:Oxacillin desai sceptible should not be interpreted as penicillin or amoxicillin susceptible. Staphylococcus aureus CLINDAMYCIN 0.25: S Staphylococcus aureus DOXYCYCLINE <=0.5: S Staphylococcus aureus CEFAZOLIN S Staphylococcus aureus TRIMETHOPRIM/SULF <=0.5/9.5: S Enterococcus faecalis VANCOMYCIN 1: S Enterococcus faecalis AMPICILLIN <=2: S us Mary HOYT MICROBIOLOGY Final Resu lt [facility] [address] [place] [id number], * (ABNORMAL) CBC AND DIFFERENTIAL (04/07/2025 8:54 AM CDT) [facility] WHITE BLOOD CELL COUNT 15.6(H) 3.8 - 10.8 Thousand/ uL [facility] RED BLOOD CELL COUNT 4.64 4.20 - 5.80 Million/u L [facility] HEMOGLOBIN 14.2 13.2 - 17.1 g/dL [facility] HEMATOCRIT 43.9 38.5 - 50.0 % [facility] MCV 94.6 80.0 - 100.0 fL [facility] MCH 30.6 27.0 - 33.0 pg [facility] MCHC 32.3 32.0 - 36.0 g/dL [facility] Comment: For adults, a slight decrease in [...] CDT Mary HOYT HEMATOLOGY Final Resu lt Performing Organization Address [facility] Co de Phone Number [employer] [facility] [address] [place] [place] [address], [employer] [address] [place] [address] * PSA TOTAL (04/07/2025 8:54 AM CDT) Only the most recent of2 resultswithin the time period is included. Pathologist [facility] PSA, TOTAL <0.04 < OR = 4.00 ng/mL [employer] Comment: The total PSA value from this assay system is standardized against the WHO standard. The test result will be approximately 20% lower when compared to the equimolar-standardized total PSA (Farooq Codie). Comparison of serial PSA results should be interpreted with this fact in mind. This test was performed using the Siemens chemiluminescent method. Values obtained from different assay methods cannot be used interchangeably. PSA levels, regardless of value, should not be interpreted as absolute evidence of the presence or absence of disease. Blood BLOOD SPECIMEN / Unknown 04/07/2025 8:54 AM CDT 04/07/2025 8:55 AM CDT Alexandria Segovia MD CHEMISTRY Final Result Performing Organization Address [facility] Co de Phone Number [employer] [facility] [address] [place] [place] [address], [place] [phone] [employer] [facility] [address] [facility] [place] [address] * MR SPINE LUMBAR WO (04/02/2025 7:39 [...] Signed) Praveen HOYT MR Final Result * LIPID PANEL W REFLEX MEASURED LDL [...] equation in the estimation of LDL-C. Fransisco SS et al. GREER. 2013;310(19): 9705-3223 (http://education.Fuzmo.[employer]/faq/HVD918) CHOL/HDLC RATIO 2.1 <5.0 (calc) [facility] NON HDL CHOLESTEROL 77 <130 mg/dL (calc) [facility] Comment: For patients with diabetes plus 1 major ASCVD risk factor, treating to a non-HDL-C goal of <100 mg/dL (LDL-C of <70 mg/dL) is considered a therapeutic option. Blood BLOOD SPECIMEN / Unknown 03/04/2025 11:26 AM CDT 03/04/2025 11:27 AM CDT Narrative [facility] - 03/05/2025 4:47 AM CDT FASTING:NO FASTING: NO Mary HOYT CHEMISTRY Final Resu lt [employer] [address] [place] [address], [facility] [address] [place] [address] * CT ABDOMEN PELVIS W (11/21/2024 11:31 AM BAND LOG MILL AND CARRIAGE OPERATOR) Anatomical Region Laterality Modality Abdomen, Pelvis, AORTA, LIVER, SPLEEN Computed Tomography 11/21/2024 11:5 5 AM BAND LOG MILL AND CARRIAGE OPERATOR Impressions 11/21/2024 11:55 AM BAND LOG MILL AND CARRIAGE OPERATOR 1. Cirrhotic morphology of the liver with [...] AM (Electronically Signed) Narrative 11/21/2024 11:55 AM BAND LOG MILL AND CARRIAGE OPERATOR For Patients: As a result of the [...] - 03/28/2022 11:27 AM CDT Patient Name: Campbell Ceja Procedure Date: 03/28/2022 Gender: Male Date of : 1955 Admit Type: Ambulatory Procedure: Colonoscopy Proceduralist: Chavez Trujillo MD [facility] Indications/Pre-Op Diagnosis: Chronic diarrhea, Rectal bleeding Medications: [...] 7:27 AM Chavez Trujillo DO PROCEDURE ORD Fi nal Result * ANTI HCV (09/23/2016 8:24 AM BAND LOG MILL AND CARRIAGE OPERATOR) HEPATITIS C ANTIBODY Non-Reacti ve Non-Reacti ve 09/23/2016 4:40 PM BAND LOG MILL AND CARRIAGE OPERATOR [facility] Blood BLOOD SPECIMEN / Unknown Venipuncture / Unknown 09/23/2016 8:24 AM BAND LOG MILL AND CARRIAGE OPERATOR 09/23/2016 8:24 AM BAND LOG MILL AND CARRIAGE OPERATOR [facility] - 09/23/2016 4:40 PM BAND LOG MILL AND CARRIAGE OPERATOR Antibodies to HCV not detected; does not exclude the possibility of exposure to HCV. us Mary HOYT SEND OUTS Final Resu lt [facility] 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 Do not delete or resolve the Infection Flag. 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 Healthcare Directive 04/26/2024 3:24 PM Sig arsen 04/23/24 * Full Code (Latest Code Status on File) Date Activated Date Inactivated Comments 04/21/2025 7:10 AM 04/21/2025 12:05 PM Question Answer Comments Code Status Discussion: Unable to Assess Preferences, Provider to review later * Full Code Date Activated Date Inactivated Comments 01/28/2025 11:31 [...] Answer Comments Code Status Discussion: Reviewed Preferences Care Teams Egg Gatherer Relationship Specialty Start Date End Date Mary Abbasi PA [address] [place] [address] PCP - General Physician Corrugated Box Machine Operator 03/10/23 Emma Webb CNS [address] [facility] [place] [address] Clinical Nurse Specialist Clinical Nurse Specialist 02/24/[address] [facility] [place], [place] [id number] Registered Dietitian Probation Manager 02/24/21 Campbell Guerrero, RN [address] [facility] [place], [place] [id number] Registered Nurse Registered Nurse 02/24/21 Simran Warner MD [address] [place] [address] Hematology and Oncology 02/28/22 Shonna Grant, LAW FIRM CONSULTANT [address] [place] [address] Hematology and Oncology 02/28/22 Alexandria Segovia MD [address] [place] [address] Surgery - Urology 03/27/25
--- OUTSIDE RECORDS SUMMARY | 2025-06-09 08:23 | XMS_ITS | Encounter Summary ---
Author Organization [facility] Address [address] [place] [address] Care Team Providers Care Relationship Manager Name Role Phone Elsewhere, Pcp Primary Care Provider Unavailabl e Encounter Details Date Type Department Care Team (Latest Contact Info) Description 04/07/2025 Clinical Communication Department of Ophthalmology in [place], [place] [address] [place] [address] Martell Ramirez M.D. [address] [place] [phone] Social History Tobacco Use Types Packs/Day Years Used Date Smoking Tobacco: Former Cigarettes Q uit: 05/19/2006 Passive Smoke Exposure: Never Smokeless Tobacco: Never Alcohol Use Standard Drinks/Week Comments Not Currently 3 (1 standard drink = 0.6 oz pur e alcohol) hasn't for months [facility] Utilities Answer Date Recorded In the past 12 months has [facility] [employer], gas, oil, or water [employer] threatened to shut off services in your [...] your living situation today? [facility] 01/20/2025 Education Answer Date Recorded What is the highest level of school you have completed or the highest degree you have received? 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
--- OUTSIDE RECORDS SUMMARY | 2025-06-09 08:23 | XMS_ITS | Encounter Summary ---
Author Organization [facility] Address [address] [place] [address] Care Team Providers Care Artificial Breeding Ranch Supervisor Name Role Phone Mary Ruggiero PA-C Primary Care Provider [phone] Tanya Andrews APRN METAL HARDENER Unavailable [phone] Deep Pires MD Unavailable [phone] Encounter Details Date Type Department Care Team (Late st Contact Info) Description 02/26/2025 [facility] Advice [facility] [address] [place] [address] Kimberlee Silverio Social History Tobacco [...] in an abandoned building, in an overnight half-way, or couch-surfing.) Yes 10/04/2024 Are you worried [...] on file 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 Source: [facility]. 06/25/2024 Assessment Noted Time PHQ-9 Depression Total Score: 16 025 1:21 PM CDT documented as of this encounter Care Teams Artificial Breeding Ranch Supervisor Relationship Specialty Start Date End Date Mary Ruggiero PA-C [address] [place] [address] PCP - General 01/16/24 Tanya Andrews APRN METAL HARDENER [address] [facility] [address] [place] [address] Nurse Practitioner Urology 03/22/24 Deep Pires MD NPI: [id number] [place] [address] [address] [place], [place] [id number] Assigned Surgical Provider 05/10/24 documented as of this encounter
[2025-06-09 08:43] LABS: Lactate* 1.0 mmol/L (0.5-1.9)
[2025-06-09 08:53] LABS: Hematocrit* 36.5 % (37.0-53.0); Hemoglobin* 11.9 gm/dL (13.5-17.5); Immature Granulocytes Abs Auto 0.03 K/uL (0.00-0.30); Immature Granulocytes Pct Auto 0.6 %; Mean Corpuscular HGB Conc 33 gm/dL (32-36); Mean Corpuscular Hemoglobin 31 pg (26-34); Mean Corpuscular Volume 96 fL (80-100); RDW Coefficient of Variation % 16.0 % (11.5-15.5); Red Blood Count* 3.81 m/uL (4.30-5.90); White Blood Count* 5.34 K/uL (4.50-11.00)
[2025-06-09 08:58] LABS: Lymphocytes Absolute Auto 0.50 K/uL (0.90-2.90); Slide Review Reflex No
[2025-06-09 09:12] LABS: INR 1.35 (0.91-1.10); Prothrombin Time 17.6 Seconds
[2025-06-09 09:23] LABS: Appearance Urine Turbid (Clear)
[2025-06-09 10:58] LABS: Albumin* 3.2 g/dL (3.3-5.0); Chloride* 106 mmol/L (96-114); Potassium* 4.2 mmol/L (3.6-5.1); Sodium* 136 mmol/L (135-149)
[2025-06-09 11:01] LABS: Alanine Aminotransferase* 27 U/L (4-50); Alkaline Phosphatase* 79 U/L (40-150); Anion Gap 6 mEq/L (7-15); Aspartate Amino Transferase* 34 U/L (12-35); Bilirubin Direct* 0.3 mg/dL (0.0-0.5); Bilirubin Total* 0.8 mg/dL (0.1-1.5); Blood Urea Nitrogen* 15 mg/dL (7-30); Carbon Dioxide* 24 mmol/L (20-32); Creatinine* 1.0 mg/dL (0.5-1.5); Est. Creatinine Clearance* 69.35; Estimated Glomerular Filt Rate 82 ml/min; Total Protein* 6.3 g/dL (6.0-8.3)
[2025-06-09 11:02] LABS: Calcium* 8.7 mg/dL (8.4-10.6); Glucose* 160 mg/dL (60-115)
[2025-06-09 11:49] VITALS: BP 139/52; PULSE 85; RESP 18; O2SAT 95
== END 2025-06-09 12:37 | disposition other institution (70) ==
PROVIDERS: Emergency Provider Family Medicine; PCP Physician Assistant
DX: R31.9 Hematuria, unspecified (principal); Z96.0 Presence of urogenital implants
CPT/HCPCS: 36415; 51798; 80048; 80076; 81001; 83605; 85025; 85610; 85730; 87086; 87186; 99283; 99284

== ENCOUNTER 2025-08-26 09:36 | Outpatient (CLI) | payer MEDICARE, BC, SELFPAY | END 2025-08-26 09:37 | disposition home or self-care (01) | LOC: INJ CL 09:37 | PROVIDERS: PCP Physician Assistant; Visit Provider Family Medicine | DX: M17.11 Unilateral primary osteoarthritis, right knee (principal); M25.561 Pain in right knee | CPT/HCPCS: 64454 ==